=== PATIENT | female | born 1950 | race Caucasian/White ===

== ENCOUNTER 2023-02-17 06:54 | Outpatient (CLI) | payer OTHER, SELFPAY ==
[2023-02-17 07:02] VITALS: BP 157/72; PULSE 63; RESP 16; O2SAT 98
--- NOTE | 2023-02-17 07:34 | P.ORPRC_ITS ---
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 COMPLICATIONS: None. SPECIMENS: None. DRAINS: None. PREOPERATIVE ANTIBIOTICS: None INDICATIONS: The patient is a 72-year-old with a history of right hip pain secondary to the above diagnoses. Despite appropriate non operative management, they continue to have symptoms. Operative intervention was recommended. The risks, benefits and expected outcomes were discussed in detail. These included but were not limited to: Infection, bleeding, injury to blood vessel or nerve, venous thromboembolism. All questions were answered to their satisfaction. PROCEDURE: The patient was placed in the lateral decubitus position. The right hip was imaged in the long and short axes with the ultrasound transducer. Normal acoustic landmarks were identified. We then sterilely prepped and draped the skin, and used a sterile probe cover with sterile gel. Local anesthesia was established with 10 mL of a solution containing 2 % lidocaine without epinephrine, 0.5% Marcaine without epinephrine and sodium bicarbonate. An 11 blade was used to incise the skin. The Tenex TX 2 micro tip was used to treat the abductor tendon for a total of 4 minutes and 47 seconds. The incision was Steri-Stripped closed. A dry dressing was applied. Sponge and needle counts were correct x2. The patient tolerated the procedure well. There were no apparent complications. They were discharged to home in satisfactory condition. PLAN: The patient may weightbear as tolerates. Tylenol can be used for pain/discomfort. They may ramp up activity as the hip will allow. They will follow up in the office in 6 weeks to assess their progress.
== END 2023-02-17 07:42 | disposition home or self-care (01) ==
LOC: US 06:55
PROVIDERS: PCP Family Medicine; Visit Provider Orthopaedic Surgery
DX: M70.61 Trochanteric bursitis, right hip (principal)
CPT/HCPCS: 27006; 76942; J0665

== ENCOUNTER 2023-07-03 17:01 | Outpatient (CLI) | payer OTHER, SELFPAY ==
--- OUTSIDE RECORDS SUMMARY | 2023-07-09 12:34 | XMS_ITS | Clinical Summary ---
Author Organization [facility] Address [address] [place] [address] Care Team Providers Care Glass Ribbon Machine Operator Name Role Phone Lilli Chacon M.D. Primary Care Provider [phone]- [phone] Source Comments Patient records contain information from all sites at [facility]. For routine questions regarding patient records, call [phone] during business hours, M-F 8:00 AM - 5:00 PM Central Time. Record requests for emergency care only can be directed to [phone] at any time.[facility] Allergies Active Allergy Reactions Criticality Noted Date Comments Chlorine Rash 06/04/2020 Medications Medication Sig Dispensed Refills Start Date End Date Status EPINEPHrine (EpiPen) 0.3 mg/0.3 mL injection syringeIndicati ons:Allergy Personal History Inject 0.3 mL (0.3 mg total) intramuscularly as needed for anaphylaxis. Inject into the thigh. 1 each 1 2 Suspended Additional Information triamcinolone (KENALOG) 0.1 % cream Apply to affected area 1-2 times daily as needed. Avoid face and groin. 240 g 3 3 Suspended Additional Information naltrexone (DEPADE) 50 mg tablet Take 0.5 tablets (25 mg total) by mouth daily. 45 tablet 2 3 06/16/19 24 Discontinued pravastatin (PRAVACHOL) 40 mg tablet TAKE ONE TABLET BY MOUTH EVERY DAY 90 tablet 3 3 06/16/19 24 Discontinued levothyroxine (SYNTHROID, LEVOTHROID) 100 mcg tabletIndicatio ns:Hypothyroidi sm Take 1 tablet (100 mcg total) by mouth daily. 90 tablet 3 3 Suspended Additional Information ibuprofen (MOTRIN) 800 mg tabletIndicatio ns:Pain Chest Take 1 tablet (800 mg total) by mouth 3 (three) times a day as needed for pain (pain. take with food.). 90 tablet 3 Suspended Additional Information buPROPion (WELLBUTRIN SR) 100 mg 12 hr tablet Take 1 tablet by mouth 2 (two) times a day. 4 Suspended naltrexone (DEPADE) 50 mg tablet Take 0.5 tablets (25 mg total) by mouth 2 (two) times a day. 4 Suspended pravastatin (PRAVACHOL) 80 mg tabletIndicatio ns:Hypercholest erolemia Take 1 tablet (80 mg total) by mouth daily. 90 tablet 3 4 Suspended Additional Information Patient taking differently:80 mg oralDaily at bedtime, Reported on 07/04/2023 Active Problems Problem Noted Date Diagnosed Date Fracture Tibial Plateau Closed Initial Left 06/08 Obesity Body Mass Index 30-39.9 Adult 06/09/2021 [...] Encounters Date Type Department Care Team Description 07/04/2023 11:53 AM CDT Anesthesia Event [facility] [address] [place] [phone] Jamir Dye M.D. Corbitt, Rachel E, M.D. 07/04/2023 10:37 AM CDT - 07/04/2023 12:57 PM CDT Surgery [facility] [address] [place] [phone] Jaxson Rodriguez M.D. APPLICATION EXTERNAL FIXATION LOWER EXTREMITY, KNEE SPANNING 07/03/2023 10:12 PM CDT - Present Hospital Encounter [facility], [facility], [facility], Eighth Floor [address] [place] [phone] Otis Mak M.D. Wood, Luke E, D.O. Hidden, Krystin A, M.D. Wyles, Cody C, M.D. Fracture Tibial Plateau Closed Initial Left (Primary Dx); Decline Functional Status [R53.81]; Difficulty Walking Orthopedic Cause [R26.2] 07/03/2023 Clinical Communication Department of Orthopedic Surgery in [place], [place] [address] [place] [phone] Joaquin Kim M.D. 07/03/2023 Intake [facility] 06/17/2023 8:15 AM CDT Comprehensive Visit Department of Ophthalmology in [place], [place] [address] [phone] Tyshawn Puga M.D. Cataract Senile Nuclear Sclerosis Bilateral (Primary Dx); Dry Eye Syndrome Bilateral 06/16/2023 8:30 AM CDT Office Visit Department of Family Medicine, [facility], in [place], [place] [address] [phone] Lilli Chacon M.D. Pain Chest Wall (Primary Dx); Obesity Body Mass Index 30-39.9 Adult; Hypercholesterolem ia; Hypothyroidism; Hyperlipidemia Mixed; Iron Deficiency Anemia Screening Exam; Screening Osteoporosis 05/03/2023 1:30 PM CDT Procedure visit Division of Pain Medicine in [place], [place] [address] [place] [phone] Mayela Velazco M.D. Pain Chest Wall 05/03/2023 12:45 PM CDT Comprehensive Visit Division of Pain Medicine in [place], [place] [address] [place] [phone] Eva Srivastava, BALBIR, C.N.P., M.S.N. Pain Chest Wall (Primary Dx) from Last 3 Months Immunizations Name Administration [...] Grace Hypertension Maternal Grandmother Grace Cataracts Mother Hananh Heart disease Mother Hannah Hyperlipidemia Mother Hannah [...] drink = 0.6 oz pur e alcohol) [facility] Utilities Answer Date Recorded In the past 12 months has e [employer] / [employer], gas, oil, or water [employer] threatened to shut off services in your home? No 07/04/2023 Humiliation, Afraid, Rape, and Kick questionnair e Answer Date Recorded Within the last year, have y ou been afraid of your partner or ex-partner? No 07/04/2023 Within the last year, have y ou been humiliated or emotionally abused in other ways by your partner or ex-partner? No Within the last year, have y ou been kicked, hit, slapped, or otherwise physically hurt by your partner or ex-partner? No 07/04/2023 Within the last year, have y ou been raped or forced to have any kind of sexual activity by your partner or ex-partner? No 07/04/2023 Social Connection and Isolation Panel [NHANES] A nswer Date Recorded In a typical week, how many times do you talk on the phone with family, friends, or neighbors? Once a week 09/14/19 How often do you get togethe r with friends or relatives? Once a week 09/13/2021 How often do you attend memorial [facility] or spiritism services? 1 to 4 times per year [...] Answer Date Recorded PHQ-2 Score 4 06/16/2023 [facility]ational Stress Questionnaire Answer Date [...] the money to buy more. Never true 07/04/19 Within the past 12 months, t he food you bought just didn't last and you didn't have money to get more. Never true 07/04/2023 PRAPARE - Transportation Answer Date Re corded In the past 12 months, has l ack of transportation kept you from medical appointments or from getting medications? No 06/08 In the past 12 months, has l ack of transportation kept you from meetings, work, or from getting things needed for daily living? No 07/04/2023 Depression Answer Date Recor ded PHQ-9 Total [...] your living situation today? I have a [facility] place to live 07/04/2023 Education Answer Date Recorded What is the highest level of school you have completed or the highest degree you have received? Doctorate 09/05/2018 Sex and Gender Information Value Date Recorded Sex Assigned at Female 12/19/2016 7:29 PM [facility] Gender Identity Female 12/19/2016 7:29 PM [employer]E SE[facility]ER Sexual Orientation Lesbian or Turc[employer] 03/12/2020 12 :23 PM [employer] SE[facility] Last Filed Vital Signs Vital Sign Reading Time Taken Comments Blood Pressure 132/60 07/08/2023 9:05 PM CDT Pulse 89 07/09/2023 9:39 AM CDT Temperature 36.9 ??C (98.4 ??F) 07/09/2023 9:39 AM CD T Respiratory Rate 19 07/09/2023 9:39 AM CDT Oxygen Saturation 95% 07/09/2023 9:39 AM CDT Inhaled Oxygen Concentration - - Weight 78.6 kg (173 lb 4.5 oz) 07/04/2023 10:00 AM CDT Height 163 cm (5' 4.17) 07/04/2023 10:00 AM CDT Body Mass Index 29.58 07/04/2023 10:00 AM CDT Plan of Treatment Upcoming Encounters Date Type Department Care Team (Latest Contact Info) Description 07/12/2023 7:50 AM CDT Hospital Encounter Post Anesthesia Care Unit in [place] [id number] [place] [phone] Corrian Zuniga M.D. [address] [place] [phone] 07/12/2023 7:50 AM CDT - 07/12/2023 11:42 AM CDT Surgery [facility] [address] [place] [phone] Corrina Zuniga M.D. [address] [place] [phone] OPEN REDUCTION INTERNAL FIXATION TIBIAL PLATEAU - LEFT, proceed as indicated 08/25/2023 10:00 AM CDT Appointment Department of Radiology in [place], [place] [address] [place] [address] Lilli Chacon M.D. [address] [place] [phone] 12/19/2023 9:10 AM CONE SEWER Appointment Department of Laboratory Medicine in [place], [place] [address] [facility] [place] [phone] Lilli Chacon M.D. [address] [place] [phone] Scheduled Procedures Name Priority Associated Diagnoses Date/Ti me OPEN REDUCTION INTERNAL FIXA TION TIBIAL PLATEAU 07/12/2023 7:50 AM C DT Health Maintenance Due Date Last Done Comments CT Colonography 1950 Cologuard 1950 Depression Monitoring (PHQ-9) 10/17/2023 06/16/2023 Thyroid Stimulating Hormone (TSH) test for thyroid function 02/03/2024 02/02/2023, 02/02/2023, 01/21/2023, Additional history exists Mammogram 02/10/2024 02/09/2023, 04/2023, 03/09/2022, Additional history exists Visit: Annual, age 65+ (or Medicare and <65) 06/15/2024 06/16/2023 Fasting Glucose for Diabetes Screening 07/07/2026 07/08/2023, 07/05/2023, 07/03/2023, Additional history exists DTaP,Tdap,and Td Vaccines (3 [...] exists Fall Risk Screen (Annual) Completed 06/16/2023 Medical Devices Implanted Type Area Safety And Health Consultant Device Identifier Shelf Expiration Date Model / Serial / Lot Cplng Ext Fx Crbnfb 5x8 - [id number] Implanted:Qty: 7 on 07/04/2023 by Jaxson Rodriguez M.D. at [facility] [employer] e.g. pins/screws/r ods Lewis 4922-1-010 / / Hilario Ext Fx Crbnfb 10x872 - [id number] Implanted:Qty: 2 on 07/04/2023 by Jaxson Rodriguez M.D. at [facility] [employer] e.g. pins/screws/r ods Hang 4922-8-500 / / Hilario Ext Fx Crbnfb [id number] - [id number] Implanted:Qty: 1 on 07/04/2023 by Jaxson Rodriguez M.D. at [facility] [employer] e.g. pins/screws/r ods Hang 4922-8-400 / / Pin Ext Fx Ss St Apx [id number] - [id number] Implanted:Qty: 1 on 07/04/2023 by Jaxson Rodriguez M.D. at [facility] [employer] e.g. pins/screws/r ods Lewis 5020-8-250 / / Pin Ext Fx Ss St Apx 5x180 - [id number] Implanted:Qty: 3 on 07/04/2023 by Jaxson Rodriguez M.D. at [facility] [employer] e.g. pins/screws/r ods Hang 5020-7-180 / / Procedures The patient is currently admitted. The information in this section might not be complete until the patient is discharged. Procedure Name Priority Date/Time Associated Diagnosis Comments BASIC METABOLIC PANEL, S/P Timed 07/08/2023 6:09 AM CDT CBC WITHOUT DIFFERENTIAL, B Timed 07/08/2023 6:09 AM CDT BASIC METABOLIC PANEL, S/P Routine 07/05/2023 6:40 AM CDT CBC WITH DIFFERENTIAL, B Routine 07/05/2023 6:[address] KNEE LEFT WITHOUT IV CONTRAST RAD - Routine (most inpatients and all outpatients) 07/04/2023 5:19 PM CDT ADULT OXYGEN THERAPY Routine 07/04/2023 2:14 PM CDT FL FLUORO LESS THAN 1 HOUR RAD - Routine (most inpatients and all outpatients) 07/04/2023 2:11 PM CDT DX TIBIA FIBULA LEFT 2 VIEWS RAD - Routine (most inpatients and all outpatients) 07/04/2023 2:11 PM CDT LDA ANE ENDOTRACHEAL AIRWAY Routine 07/04/2023 12:07 PM CDT APPLICATION EXTERNAL FIXATION LOWER EXTREMITY 07/04/2023 11:33 AM CDT Fracture Tibial Plateau Closed Initial Left Special Needs SupineDiving boardWedge/rampPFS boot with extension postop DX CHEST 1 VIEW RAD - Semiurgent (Fast; most ED patients; some inpatients) 07/03/2023 11:29 PM CDT DX FINGERS LEFT 2+ VIEWS RAD - Semiurgent (Fast; most ED patients; some inpatients) 07/03/2023 11:29 PM CDT TYPE AND SCREEN STAT 07/03/2023 10:53 PM CDT BASIC METABOLIC PANEL, S/P STAT 07/03/2023 10:53 PM CDT PROTHROMBIN TIME (PT), P STAT 07/03/2023 10:53 PM CDT CBC WITH DIFFERENTIAL, B STAT 07/03/2023 10:53 PM CDT ECG STAT 07/03/2023 10:[address] NEURO Routine 07/03/2023 6:40 PM CDT OUTSIDE DX SKELETAL Routine 07/03/2023 5 :55 PM CDT OH US GUIDE PLC NDL Routine 05/03/2023 1 :30 PM CDT Pain Chest Wall OH INJ TRIGGER PNT<=2 MUS Routine 05/03/2023 1:30 PM CDT Pain Chest Wall BI BREAST SCREENING BILATERAL WITH TOMOSYNTHESIS RAD - Routine (most inpatients and all outpatients) 02/09/2023 8:55 AM [facility] LIPID PANEL, S Routine 02/02/2023 2:28 PM [employer]ER Gain Weight THYROID-STIMULATING HORMONE-SENSITIVE (S-TSH) Routine 02/02/2023 2:28 PM [employer]E SE[employer]ER Hypothyroidism HCV AB SCRN W/REFLEX TO HCV PCR, S Routine 03/17/2022 10:17 AM [facility]E SE[facility]ER Screening Test Laboratory COLONOSCOPY Routine 11/26/2019 3:23 PM CDT Screening Cancer Colon from Last 3 Months or Most Recently Relevant to Health Maintenance Results * (ABNORMAL) CBC without Differential (07/08/2023 6:09 AM CDT) Hemoglobin 9.1(L) 11.6 - 15.0 g/dL 07/08/2023 7:10 AM CDT DTL Hematocrit 27.7(L) 35.5 - 44.9 % 07/08/2023 7:10 AM CDT DTL Erythrocytes 2.89(L) 3.92 - 5.13 x10(12)/L 07/08/2023 7:10 AM CDT DTL MCV 95.8 78.2 - 97.9 fL 07/08/2023 7:10 AM CDT DTL RBC Distrib Width 13.2 12.2 - 16.1 % 07/08/2023 7:10 AM CDT DTL Platelet Count 191 157 - 371 x10(9)/L 07/08/2023 7:10 AM CDT DTL Leukocytes 5.1 3.4 - 9.6 x10(9)/L 07/08/2023 7:10 AM CDT DTL Blood (Blood, Venous) 07/08/2023 6:09 AM CDT 07/08/2023 6:59 AM CDT Gabriel Hooks M.D. LAB BLOOD ADD-ON [facility] [address] [place] [address], [facility] [address] [place] [address] * (ABNORMAL) Basic Metabolic Panel (07/08/2023 6:09 AM CDT) Only the most recent of3 resultswithin the time period is included. Potassium, S 3.7 3.6 - 5.2 mmol/L 07/08/2023 7:44 AM CDT DTL Sodium, S 139 135 - 145 mmol/L 07/08/2023 7:44 AM CDT DTL Chloride, S 104 98 - 107 mmol/L 07/08/2023 7:44 AM CDT DTL Bicarbonate, S 28 22 - 29 mmol/L 07/08/2023 7:44 AM CDT DTL Anion Gap 7 7 - 15 07/08/2023 7:44 AM CDT DTL BUN (Blood Urea Nitrogen), S 16 6 - 21 mg/dL 07/08/2023 7:44 AM CDT DTL Creatinine 0.86 0.59 - 1.04 mg/dL 07/08/2023 7:44 AM CDT DTL Estimated GFR (eGFR) 72 >=60 mL/min/BSA 07/08/2023 7:44 AM CDT DTL Comment: Estimated GFR calculated using the 2020 CKD_EPI creatinine equation. Calcium, Total, S 8.4(L) 8.8 - 10.2 mg/dL 07/08/2023 7:44 AM CDT DTL Glucose, S 104 70 - 140 mg/dL 07/08/2023 7:44 AM CDT DTL Blood (Blood, Venous) 07/08/2023 6:09 AM CDT 07/08/2023 7:23 AM CDT Gabriel Hooks M.D. LAB BLOOD ADD-ON [facility] [address] [place] [address], [facility] [address] [place] [address] * (ABNORMAL) CBC with Differential, Blood (07/05/2023 6:40 AM CDT) Only the most recent of2 resultswithin the time period is included. Hemoglobin 9.9(L) 11.6 - 15.0 g/dL 07/05/2023 7:34 AM CDT DTL Hematocrit 30.7(L) 35.5 - 44.9 % 07/05/2023 7:34 AM CDT DTL Erythrocytes 3.24(L) 3.92 - 5.13 x10(12)/L 07/05/2023 7:34 AM CDT DTL MCV 94.8 78.2 - 97.9 fL 07/05/2023 7:34 AM CDT DTL RBC Distrib Width 13.0 12.2 - 16.1 % 07/05/2023 7:34 AM CDT DTL Platelet Count 157 157 - 371 x10(9)/L 07/05/2023 7:34 AM CDT DTL Leukocytes 7.0 3.4 - 9.6 x10(9)/L 07/05/2023 7:34 AM CDT DTL Neutrophils 4.89 1.56 - 6.45 x10(9)/L 07/05/2023 7:34 AM CDT DHPM Lymphocytes 1.16 0.95 - 3.07 x10(9)/L 07/05/2023 7:34 AM CDT DTL Monocytes 0.86(H) 0.26 - 0.81 x10(9)/L 07/05/2023 7:34 AM CDT DTL Eosinophils 0.03 0.03 - 0.48 x10(9)/L 07/05/2023 7:34 AM CDT DTL Basophils <0.03 0.01 - 0.08 x10(9)/L 07/05/2023 7:34 AM CDT DTL Blood (Blood, Venous) 07/05/2023 6:40 AM CDT 07/05/2023 7:15 AM CDT Cresencio Reno M.D. LAB BLOOD ADD-ON [facility] [address] [place] [address], [facility] DTL [facility] [address] [place] [address] [facility] [address] [place] [address] * CT Knee Left without IV Contrast (07/04/2023 5:19 PM CDT) Anatomical Region Laterality Modality Lower Extremity, Knee, Muscu loskeletal RST LOS, Musculoskeletal ARZ LOS, Muskuloskeletal FLA LOS Left Computed Tomography, Compute d Tomography Impressions 07/05/2023 10:[address] of the left knee. As demonstrated radiographically, there is a comminuted and moderately displaced intra-articular fracture of the left tibial plateaus which extends to the proximal tibial shaft. The fracture involves both the medial and lateral tibial plateaus and the tibial eminence. Moderate depression of the lateral tibial plateau articular surface, with a large resultant gap at the articular surface. Approximately 3 mm step off at the medial tibial plateau. Additional comminuted and mildly displaced intra-articular fracture of the fibular head and neck. Mild step-off and gaps at the proximal tibiofibular joint. Mild impaction of the fibular neck. Large knee joint lipohemarthrosis. Surrounding bone marrow and soft tissue edema. Partially imaged external fixator. Phleboliths. Narrative 07/05/2023 10:32 AM CDT EXAM: ??CT KNEE LEFT WITHOUT IV CONTRAST No 3D post-processing performed. COMPARISON: ??Same-day tibia/fibula radiographs. Procedure Note Haylie White M.D. - 07/05/2023 EXAM: CT KNEE LEFT WITHOUT IV CONTRAST No 3D post-processing performed. COMPARISON: Same-day tibia/fibula radiographs. IMPRESSION: Noncontrast CT of the left knee. As demonstrated radiographically, there is a comminuted and moderatelydisplaced intra-articular fracture of the left tibial plateaus whichextends to the proximal tibial shaft. The fracture involves both themedial and lateral tibial plateaus and the tibial eminence. Moderate depression of the lateral tibial plateauarticular surface, with a large resultant gap at the articular surface.Approximately 3 mm step off at the medial tibial plateau. Additional comminuted and mildly displaced intra-articular fracture of thefibular head and neck. Mild step-off and gaps at the proximal tibiofibularjoint. Mild impaction of the fibular neck. Large knee joint lipohemarthrosis. Surrounding bone marrow and soft tissueedema. Partially imaged external fixator. Phleboliths. Fareed Villagran M.D. IMG CT PROCEDURES * FL Fluoro Less Than 1 Hour (07/04/2023 2:11 PM CDT) Narrative 152 HOS LOS RST - 07/04/2023 2:13 PM CDT This exam does not require a radiologist review or interpretation. Please refer to the patient's medical record on this date for clinical details. Joaquin Kim M.D. IMG FLUOROSCOPY PRO CEDURES 152 HOS LOS RST * DX Tibia Fibula Left 2 Views (07/04/2023 2:11 PM CDT) Anatomical Region Laterality Modality Lower Extremity, TibFib, Mus culoskeletal RST LOS, Musculoskeletal ARZ LOS, Muskuloskeletal FLA LOS Left Digit al Radiography Impressions 07/04/2023 2:22 PM CDT Interval placement of an external fixator across a comminuted, depressed, and displaced left lateral tibial plateau fracture which extends to the proximal tibial shaft with improved alignment. Mildly displaced fibular neck fracture. Large knee lipohemarthrosis. Soft tissue swelling and edema. Phleboliths. Narrative 07/04/2023 2:22 PM CDT EXAM: ??DX TIBIA FIBULA LEFT 2 VIEWS Procedure Note Vince Sweeney M.D. - 07/04/2023 EXAM: DX TIBIA FIBULA LEFT 2 VIEWS IMPRESSION: Interval placement of an external fixator across a comminuted, depressed,and displaced left lateral tibial plateau fracture which extends to theproximal tibial shaft with improved alignment. Mildly displaced fibularneck fracture. Large knee lipohemarthrosis. Soft tissue swelling and edema. Phleboliths. Joaquin Kim M.D. IMG DIAGNOSTIC IMAG ING PROCEDURES * LDA ANE ENDOTRACHEAL AIRWAY (07/04/2023 12:07 PM CDT) Narrative Manasa Corona APRN, CRNA, MNA - 07/04/2023 12:07 PM CDT Manasa Corona APRN, CRNA, MNA ? 07/04/2023 12:23 PM Airway Date/Time: 07/04/2023 12:07 PM Performed by: Manasa Corona APRN, CRNA, MNA Authorized by: Jamir Dye M.D. ?? Patient location during procedure: OR / Procedure Area PROCEDURE DETAILS: Mask difficulty assessment: easy mask Final airway type: video laryngoscope Laryngeal Manipulation: no ?? Final best view of glottic structures - Cormack/Lehane Score: grade 1 ETT location: oral VL device: glide scope Colon scope blade size: 3 Tube size: 7 ETT distance at teeth/gum: 21 Oral tube type: standard ETT Cuffed: yes Leak Test Performed: no ?? Number of attempt to successful placement: 1 Airway confirmation: bilateral breath sounds, positive ETCO2 and bilateral chest rise Other previous techniques attempted: none PRE PROCEDURE DETAILS: Pre evaluation for airway management: procedure Urgency: elective Preop assessment of probable difficulty: no difficulty anticipated Preoxygenation: bag valve mask SEDATION / ANESTHESIA Anesthesia method: anesthesia POST PROCEDURE DETAILS: ? Procedure outcome: successful ?? Notable Events: no complications Jamir Dye M.D. ANESTHESIA ORDER SHADE * DX Fingers Left 2+ Views (07/03/2023 11:29 PM CDT) Anatomical Region Laterality Modality Upper Extremity, Fingers, Mu sculoskeletal RST LOS, Musculoskeletal ARZ LOS, Muskuloskeletal FLA LOS Left Digit al Radiography Impressions 07/04/2023 6:50 AM CDT Tiny osseous fragment about the medial aspect of the proximal middle fifth phalanx appears to have been present dating back to 2019. No acute fracture or traumatic malalignment of the left fifth finger. No radiopaque foreign body. Narrative 07/04/2023 6:50 AM CDT EXAM: ??DX FINGERS LEFT 2+ VIEWS Procedure Note Rich Montelongo M.D. - 07/04/2023 EXAM: DX FINGERS LEFT 2+ VIEWS IMPRESSION: Tiny osseous fragment about the medial aspect of the proximal middle fifthphalanx appears to have been present dating back to 2019. No acutefracture or traumatic malalignment of the left fifth finger. No radiopaqueforeign body. Otis Mak M.D. IMG DIAGNOSTIC IMAGI NG PROCEDURES * DX Chest 1 View (07/03/2023 11:29 PM CDT) Anatomical Region Laterality Modality Chest, Thoracic RST LOS, Tho racic ARZ LOS, Thoracic FLA LOS N/A Digital Radiography Impressions 07/04/2023 6:51 AM CDT Calcified granuloma right upper lobe. Chest otherwise negative. Narrative 07/04/2023 6:51 AM CDT EXAM: ??DX CHEST 1 VIEW Procedure Note Rich Montelongo M.D. - 07/04/2023 EXAM: DX CHEST 1 VIEW IMPRESSION: Calcified granuloma right upper lobe. Chest otherwise negative. Otis Mak M.D. IMG DIAGNOSTIC IMAGI NG PROCEDURES * Prothrombin Time (PT) (07/03/2023 10:53 PM CDT) [facility] Prothrombin Time, P 11.7 9.4 - 12.5 sec 07/03/2023 11:04 PM CDT STMA INR 1.1 0.9 - 1.1 07/03/2023 11:04 PM CDT STMA Comment: ----ADDITIONAL INFORMATION---- Standard intensity warfarin therapeutic range: 2.0 to 3.0 ?? High intensity warfarin therapeutic range: 2.5 to 3.5 Blood (Blood, Venous) 07/03/2023 10:53 PM CDT 07/03/2023 10:58 PM CDT Narrative Authorizing Provider Result Vijaya Mak M.D. LAB BLOOD ADD-ON Performing Organization Address City/[facility]/ZIP Co de Phone Number [facility] [address] [place] [address], [facility] STMA [facility] [address] [place] [address] * Type and Screen (with Reflex Antibody ID) (07/03/2023 10:53 PM CDT) Pathologist [facility] ABORh O Pos Not applicable 07/03/2023 11:19 PM CDT STRM Antibody Screen Negative Negative 07/03/2023 11:34 PM CDT STRM Type & Screen Expiration 07/06/2023 23:59 07/03/2023 11:19 PM CDT STRM Testing Location [place] DEFAULT 07/03/2023 11:00 PM CDT STRM Blood (Blood, Venous) 07/03/2023 10:53 PM CDT 07/03/2023 11:00 PM CDT Narrative Authorizing Provider Result Vijaya Mak M.D. LAB BLOOD BANK TEST ORDERABLES Performing Organization Address City/[facility]/ZIP Co de Phone Number [facility] [address] [place] [address], [facility] STRM [facility] [address] [place] [address] * ECG 12 Lead (07/03/2023 10:32 PM CDT) Ventricular Rate ECG/Min 77 BPM MUSE [place] Interval 146 ms MUSE QRSD Interval 76 ms MUSE QT Interval 400 ms MUSE QTC Interval 452 ms MUSE P [place] 50 degrees MUSE R [place] 16 degrees MUSE T Wave [place] 44 degrees MUSE 07/03/2023 10:3 2 PM CDT 07/03/2023 10:36 PM CDT Impressions MUSE - 07/03/2023 10:36 PM CDT Normal sinus rhythm Minimal voltage criteria for LVH, may be normal variant When compared with ECG of 13-Sep-2016 12:00, No significant change was found Reviewed by SABA Naranjo Narrative Procedure Note Remigio Us M.B.BPrakashS. - 07/03/2023 IMPRESSION: Normal sinus rhythm Minimal voltage criteria for LVH, may be normal variant When compared with ECG of 13-Sep-2016 12:00, No significant change was found Reviewed by SABA Naranjo Otis Mak M.D. ECG ORDERABLES MUSE NA * CT HEAD/BRAIN WO CON-Outside CT Neuro (07/03/2023 6:40 PM CDT) 07/03/2023 6:36 PM CDT Narrative IIMS - 07/03/2023 7:53 PM CDT This order has been created and auto-finalized to support the import of outside images. If available, original interpretation can be found on the Media Tab in Chart Review, in Document Viewer, or as an image in QREADS. If a re-interpretation or overread is required please follow defined workflow. ?? Provider Not In System IMG CT PROCEDURES IIMS NA * XR TIBIA FIBULA LT 2V-Outside Skeletal Xray (07/03/2023 5:55 PM CDT) 07/03/2023 5:53 PM CDT Narrative IIMS - 07/03/2023 7:53 PM CDT This order has been created and auto-finalized to support the import of outside images. If available, original interpretation can be found on the Media Tab in Chart Review, in Document Viewer, or as an image in QREADS. If a re-interpretation or overread is required please follow defined workflow. ?? Provider Not In System IMG DIAGNOSTIC IM AGING PROCEDURES IIMS NA * OH INJ TRIGGER PNT<=2 MUS, [place] US GUIDE PLC NDL (05/03/2023 1:30 PM CDT) Narrative MMODAL - 05/03/2023 1:30 PM CDT Mayela Velazco M.D. ? 05/03/2023 ??1:52 PM PM Trigger point injection (right cervical and left cervical) Performed by: Mayela Velazco M.D. Authorized by: Lilli Chacon M.D. ?? Care team members present 1. Louisa Garcia, L.PPrakashN. 2. Junaid Stack D.O. PROCEDURE SUMMARY ?? [...] fellow participated in the procedure, and the corporate learning consultant was present for the entire procedure. OPERATIVE NOTE INFORMATION Specimens: 0 Drains: 0 Estimated blood loss: 0 Implants: 0 Lilli Chacon M.D. PROCEDURE/MINOR CASTILLO RGICAL ORDERABLES MMODAL NA * (ABNORMAL) Lipid Panel (02/02/2023 2:28 PM CONE SEWER) Triglycerides 69 mg/dL 02/02/2023 4:41 PM CONE SEWER OWAT Comment: ----REFERENCE VALUE---- Normal: <150 mg/dL Borderline High: 150-199 mg/dL High: 200-499 mg/dL Very High: > or =500 mg/dL Cholesterol, Total 230(H) mg/dL 2022 4:41 PM CONE SEWER OWAT Comment: ----REFERENCE VALUE---- Desirable: < 200 mg/dL Borderline High: 200 - 239 mg/dL High: > or = 240 mg/dL Cholesterol, LDL, Calculated 118 mg/dL 02/02/2023 4:41 PM CONE SEWER OWAT Comment: ----REFERENCE VALUE---- Desirable: <100 mg/dL Above Desirable: 100-129 mg/dL Borderline High: 130-159 mg/dL High: 160-189 mg/dL Very High: >=190 mg/dL ----ADDITIONAL INFORMATION---- LDL cholesterol calculated using the Siu/NIH equation. Cholesterol, HDL 100 >=50 mg/dL 02/03/20 4:41 PM CONE SEWER OWAT Cholesterol, Non-HDL, Calculated 130 mg/dL 02/02/2023 4:41 PM CONE SEWER OWAT Comment: ----REFERENCE VALUE---- Desirable: <130 mg/dL Above Desirable: 130-159 mg/dL Borderline High: 160-189 mg/dL High: 190-219 mg/dL Very High: > or =220 mg/dL Fasting (8 HR or more) yes 02/02/2023 3:40 PM CONE SEWER OWAT Blood (Blood, Venous) 02/02/2023 2:28 PM CONE SEWER 02/02/2023 3:40 PM CONE SEWER Katie Corona M.D. LAB BLOOD ADD-ON [facility] [address] [place] [address], [facility] OWAT [facility] [place] [address] [place] [address] * S-TSH (Thyroid-Stimulating Hormone - Sensitive) (02/02/2023 2:28 PM CONE SEWER) TSH, Sensitive 0.3 0.3 - 4.2 mIU/L 02/02/2023 4:37 PM CONE SEWER OWAT Blood (Blood, Venous) 02/02/2023 2:28 PM CONE SEWER 02/02/2023 3:40 PM CONE SEWER Lilli Chacon M.D. LAB BLOOD ADD-ON [facility] [address] [place] [address], [place] OWAT [facility] [place] [address] [place] [address] * HCV Ab Scrn w/Reflex to HCV PCR, Serum (03/17/2022 10:17 AM CONE SEWER) HCV Ab Screen, S Negative Negative 03/18/2022 8:10 AM CONE SEWER [facility] Comment:Aicigc-zc-mrgsnx rat io is <1.00. Blood (Blood, Venous) 03/17/2022 10:17 AM CONE SEWER 03/18/2022 7:06 AM CONE SEWER Lilli Chacon M.D. LAB MICROBIOLOGY - BLOOD ORDERABLES [facility] [address] [place] [address] [facility] [address] [place] [phone] from Last 3 Months or Most Recently Relevant to Health Maintenance Advance Directives For more information, please contact: [phone] * Full Code (Latest Code Status on File) Date Activated Date Inactivated Comments 07/03/2023 11:47 PM Question Answer Comments Full Code: Discussed Care Teams Glass Ribbon Machine Operator Relationship Specialty Start Date End Date Lilli Chacon M.D. [address] [place] [phone] PCP - General Family Medicine 05/11/21
--- OUTSIDE RECORDS SUMMARY | 2023-07-09 12:34 | XMS_ITS | Referral Summary ---
Author Organization [facility] Address [address] [place] [address] Care Team Providers Care Estimator And Drafter Name Role Phone Lilli Chacon M.D. Primary Care Provider [phone]- [phone] Source Comments Patient records contain information from all sites at [facility]. For routine questions regarding patient records, call [phone] during business hours, M-F 8:00 AM - 5:00 PM Central Time. Record requests for emergency care only can be directed to [phone] at any time.[facility] Encounters Date Type Department Care Team Description 07/04/2023 10:37 AM CDT - 07/04/2023 12:57 PM CDT Surgery [facility] OR [address] [place] [phone] Jaxson Rodriguez M.D. APPLICATION EXTERNAL FIXATION LOWER EXTREMITY, KNEE SPANNING 07/04/2023 11:53 AM CDT Anesthesia Event [facility] OR [address] [place] [phone] Jamir Dye M.D. Corbitt, Rachel E, M.D. 07/03/2023 Clinical Communication Department of Orthopedic Surgery in [place], [place] [address] [place] [phone] Joaquin Kim M.D. 07/03/2023 10:12 PM CDT - Present Hospital Encounter [facility], [facility], [facility], Eighth Floor [address] [place] [phone] Otis Mak M.D. Gibran Thompson D.O. Lisa Mota M.D. Wyles, Cody C, M.D. Fracture Tibial Plateau Closed Initial Left (Primary Dx); Decline Functional Status [R53.81]; Difficulty Walking Orthopedic Cause [R26.2] 07/03/2023 Intake [facility] 06/17/2023 8:15 AM CDT Comprehensive Visit Department of Ophthalmology in [address] [phone] Tyshawn Puga M.D. Cataract Senile Nuclear Sclerosis Bilateral (Primary Dx); Dry Eye Syndrome Bilateral 06/16/2023 8:30 AM CDT Office Visit Department of Family Medicine, [facility], in [address] [phone] Lilli Chacon M.D. Pain Chest Wall (Primary Dx); Obesity Body Mass Index 30-39.9 Adult; Hypercholesterolem ia; Hypothyroidism; Hyperlipidemia Mixed; Iron Deficiency Anemia Screening Exam; Screening Osteoporosis 05/03/2023 1:30 PM CDT Procedure visit Division of Pain Medicine in [address] [phone] Eva Velazco M.D. Pain Chest Wall 05/03/2023 12:45 PM CDT Comprehensive Visit Division of Pain Medicine in [place], [place] [address] [place] [phone] Eva Srivastava APRN, C.N.P., M.S.N. Pain Chest Wall (Primary Dx) from Last 3 Months Allergies Active Allergy [...] Years Used Date Smoking Tobacco: Former Cigarettes - 2002 Smokeless Tobacco: Never Tobacco Cessation:Counseling Given: Not Answered Alcohol Use Standard Drinks/Week Comments Yes 2 (1 standard drink = 0.6 oz pur e alcohol) [facility] Utilities Answer Date Recorded In the past 12 months has e [employer], gas, oil, or water company threatened to shut off services in your [...] often do you attend chur ch or mandaen services? 1 to 4 times per year 09/13/2021 Do you belong to any clubs o r organizations such as confucianism groups, unions, fraternal or athletic groups, or [...] Answer Date Recorded PHQ-2 Score 4 06/16/2023 [facility] [place] of Occupat ional Health - Occupational Stress [...] money to buy more. Never true 07/04/19 24 Within the past 12 months, t he [...] your living situation today? I have a [facility] place to live 07/04/2023 Education Answer Date Recorded What is the highest level of school you have completed or the highest degree you have received? Doctorate 09/05/2018 Sex and Gender Information Value Date Recorded Sex Assigned at Female 12/19/2016 7:29 PM EDGE GRINDER Gender Identity Female 12/19/2016 7:29 PM EDGE GRINDER Sexual Orientation Lesbian or Turcios 03/12/2020 12 :23 PM EDGE GRINDER Last Filed Vital Signs Vital Sign Reading [...] Hospital Encounter Post Anesthesia Care Unit in [place] [id number] [place] [phone] Corrina Zuniga M.D. [address] [place] [phone] 07/12/2023 7:50 AM CDT - 07/12/2023 11:42 AM CDT Surgery [facility] OR [address] [place] [phone] Corrina Zuniga M.D. [address] [place] [phone] OPEN REDUCTION INTERNAL FIXATION TIBIAL PLATEAU - LEFT, proceed as indicated 08/25/2023 10:00 AM CDT Appointment Department of Radiology in [place], [place] [address], [place] [phone] Lilli Chacon M.D. [address] [address] 12/19/2023 9:10 AM EDGE GRINDER Appointment Department of Laboratory Medicine in [place] [address] [place] [phone] Lilli Chacon M.D. [address] [place] [phone] Scheduled Procedures Name Priority Associated Diagnoses Date/Ti me OPEN REDUCTION INTERNAL FIXA TION TIBIAL PLATEAU 07/12/2023 7:50 AM C DT Medical Devices Implanted Type Area Well Drill Operator Device Identifier Shelf Expiration Date Model / Serial / Lot Cplng Ext Fx Crbnfb 5x8 - [id number] Implanted:Qty: 7 on 07/04/2023 by Jaxson Rodriguez M.D. at [facility] Hardware e.g. pins/screws/r ods [place] 4922-1-010 / / Hilario Ext Fx Crbnfb [id number] - [id number] Implanted:Qty: 2 on 07/04/2023 by Jaxson Rodriguez M.D. at [facility] Hardware e.g. pins/screws/r ods [place] 4922-8-500 / / Hilario Ext Fx Crbnfb [id number] - [id number] Implanted:Qty: 1 on 07/04/2023 by Jaxson Rodriguez M.D. at [facility] Hardware e.g. pins/screws/r ods [place] 4922-8-400 / / Pin Ext Fx Ss St Apx [id number] - [id number] Implanted:Qty: 1 on 07/04/2023 by Jaxson Rodriguez M.D. at [facility] Hardware e.g. pins/screws/r ods [place] 5020-8-250 / / Pin Ext Fx Ss St Apx 5x180 - [id number] Implanted:Qty: 3 on 07/04/2023 by Jaxson Rodriguez M.D. at [facility] Hardware e.g. pins/screws/r ods [place] [id number] / / Procedures The patient is [...] SKELETAL Routine 07/03/2023 5 :55 PM CDT NV US GUIDE PLC NDL Routine 05/03/2023 1 :30 PM CDT Pain Chest Wall NV INJ TRIGGER PNT<=2 MUS Routine 05/03/2023 1:30 PM CDT Pain Chest Wall BI BREAST SCREENING BILATERAL WITH TOMOSYNTHESIS RAD - Routine (most inpatients and all outpatients) 02/09/2023 8:55 AM EDGE GRINDER LIPID PANEL, S Routine 02/02/2023 2:28 PM EDGE GRINDER Gain Weight THYROID-STIMULATING HORMONE-SENSITIVE (S-TSH) Routine 02/02/2023 2:28 PM EDGE GRINDER Hypothyroidism HCV AB SCRN W/REFLEX TO HCV PCR, S Routine 03/17/2022 10:17 AM EDGE GRINDER Screening Test Laboratory COLONOSCOPY Routine 11/26/2019 3:23 [...] CDT Gabriel Hooks M.D. LAB BLOOD ADD-ON [facility] [address] [place] [address], [facility] DTL [facility] [address] [place] [address] * (ABNORMAL) Basic Metabolic Panel (07/08/2023 6:09 AM CDT) Only the most recent of3 resultswithin the time period is included. Pathologist [facility] Potassium, S 3.7 3.6 - 5.2 mmol/L [...] CDT Gabriel Hooks M.D. LAB BLOOD ADD-ON [facility] [address] [place] [address], [facility] DTL [facility] [address] [place] [address] * (ABNORMAL) CBC with Differential, Blood (07/05/2023 [...] CDT Cresencio Reno M.D. LAB BLOOD ADD-ON [facility] [address] [place] [address], [place] DTL [facility] [address] [place] [address] [facility] [address] [place] [address] * CT Knee Left without IV Contrast [...] date for clinical details. Joaquin Kim M.D. IM FLUOROSCOPY PRO CEDURES 152 HOS LOS RST [...] ETT location: oral VL device: glide scope [place] scope blade size: 3 Tube size: 7 [...] finger. No radiopaqueforeign body. Otis Mak M.D. [facility] DIAGNOSTIC IMAGI NG PROCEDURES * DX Chest [...] lobe. Chest otherwise negative. Otis Mak M.D. [facility] DIAGNOSTIC IMAGI NG PROCEDURES * Prothrombin Time (PT) (07/03/2023 10:53 PM CDT) Prothrombin Time, P 11.7 9.4 - 12.5 sec 07/03/2023 11:04 PM CDT STMA INR 1.1 0.9 - 1.1 07/03/2023 11:04 PM CDT [facility] Comment: ----ADDITIONAL INFORMATION---- Standard intensity warfarin therapeutic range: 2.0 to 3.0 ?? High intensity warfarin therapeutic range: 2.5 to 3.5 Blood (Blood, Venous) 07/03/2023 10:53 PM CDT 07/03/2023 10:58 PM CDT Otis Mak M.D. LAB BLOOD ADD-ON Performing Organization Address City/[facility] Co de Phone Number [facility] [address] [place] [address], [facility] [address] [place] [address] * Type and Screen (with Reflex Antibody ID) (07/03/2023 10:53 PM CDT) Pathologist [facility] ABORh O Pos Not applicable 07/03/2023 11:19 PM CDT STRM Antibody Screen Negative Negative 07/03/2023 11:34 PM CDT STRM Type & Screen Expiration 07/06/2023 23:59 07/03/2023 11:19 PM CDT STRM Testing Location [place] DEFAULT 07/03/2023 11:00 PM CDT STR Blood (Blood, Venous) 07/03/2023 10:53 PM CDT 07/03/2023 11:00 PM CDT Otis Mak M.D. LAB BLOOD BANK TEST ORDERABLES Performing Organization Address [facility] Co de Phone Number [facility] [address] [place] [address], [facility] STRM [facility] [address] [place] [address] * ECG 12 Lead (07/03/2023 10:32 PM CDT) Pathologist [facility] Ventricular Rate ECG/Min 77 BPM MUSE NV Interval 146 ms MUSE QRSD Interval 76 ms MUSE QT Interval 400 ms MUSE QTC Interval 452 ms MUSE P [place] 50 degrees MUSE R [place] 16 degrees MUSE T Wave [place] 44 degrees MUSE 07/03/2023 10:3 2 PM CDT 07/03/2023 10:36 PM CDT Impressions MUSE - 07/03/2023 10:36 PM CDT Normal sinus rhythm Minimal voltage criteria for LVH, may be normal variant When compared with ECG of 13-Sep-2016 12:00, No significant change was found Reviewed by SABA Naranjo Narrative Procedure Note Remigio Us M.B.B.S. - 07/03/2023 IMPRESSION: Normal sinus rhythm Minimal voltage criteria for LVH, may be normal variant When compared with ECG of 13-Sep-2016 12:00, No significant change was found Reviewed by SABA Naranjo Otis Mak M.D. ECG ORDERABLES Performing Organization Address [facility] Co de Phone Number MUSE NA * CT HEAD/BRAIN WO CON-Outside [...] Provider Not In System IMG CT PROCEDURES Performing Organization Address [facility] Co de Phone Number IIMS NA * XR TIBIA FIBULA LT [...] DIAGNOSTIC IM AGING PROCEDURES IIMS NA * NV INJ TRIGGER PNT<=2 MUS, [place] US GUIDE PLC NDL (05/03/2023 1:30 PM CDT) Narrative MMODAL - 05/03/2023 1:30 PM CDT Eva Velazco M.D. ? 05/03/2023 ??1:52 PM PM Trigger point injection (right cervical and left cervical) Performed by: Eva Velazco M.D. Authorized by: Lilli Chacon M.D. ?? Care team members present 1. Louisa Garcia L.P.N. 2. Junaid Stcak D.O. PROCEDURE SUMMARY ?? Indication: Chest Wall [...] fellow participated in the procedure, and the pmo consultant was present for the entire procedure. OPERATIVE NOTE INFORMATION Specimens: 0 Drains: 0 Estimated blood loss: 0 Implants: 0 Lilli Chacon M.D. PROCEDURE/MINOR CASTILLO RGICAL ORDERABLES MMODAL NA * (ABNORMAL) Lipid Panel (02/02/2023 2:28 PM EDGE GRINDER) Triglycerides 69 mg/dL 02/02/2023 4:41 PM EDGE GRINDER OWAT Comment: ----REFERENCE VALUE---- Normal: <150 mg/dL Borderline High: 150-199 mg/dL High: 200-499 mg/dL Very High: > or =500 mg/dL Cholesterol, Total 230(H) mg/dL 2022 4:41 PM EDGE GRINDER OWAT Comment: ----REFERENCE VALUE---- Desirable: < 200 mg/dL Borderline High: 200 - 239 mg/dL High: > or = 240 mg/dL Cholesterol, LDL, Calculated 118 mg/dL 02/02/2023 4:41 PM EDGE GRINDER OWAT Comment: ----REFERENCE VALUE---- Desirable: <100 mg/dL Above Desirable: 100-129 mg/dL Borderline High: 130-159 mg/dL High: 160-189 mg/dL Very High: >=190 mg/dL ----ADDITIONAL INFORMATION---- LDL cholesterol calculated using the Siu/NIH equation. Cholesterol, HDL 100 >=50 mg/dL 02/03/20 4:41 PM EDGE GRINDER OWAT Cholesterol, Non-HDL, Calculated 130 mg/dL 02/02/2023 4:41 PM EDGE GRINDER OWAT Comment: ----REFERENCE VALUE---- Desirable: <130 mg/dL Above Desirable: 130-159 mg/dL Borderline High: 160-189 mg/dL High: 190-219 mg/dL Very High: > or =220 mg/dL Fasting (8 HR or more) yes 02/02/2023 3:40 PM EDGE GRINDER OWAT Blood (Blood, Venous) 02/02/2023 2:28 PM EDGE GRINDER 02/02/2023 3:40 PM EDGE GRINDER Katie Corona M.D. LAB BLOOD ADD-ON Performing Organization Address City/[facility]/ZIP Co de Phone Number [facility] [address] [place] [address], [facility] in [place] [address] [place] [address] * S-TSH (Thyroid-Stimulating Hormone - Sensitive) (02/02/2023 2:28 PM EDGE GRINDER) TSH, Sensitive 0.3 0.3 - 4.2 mIU/L 02/02/2023 4:37 PM EDGE GRINDER OWAT Blood (Blood, Venous) 02/02/2023 2:28 PM EDGE GRINDER 02/02/2023 3:40 PM EDGE GRINDER Lilli Chacon M.D. LAB BLOOD ADD-ON Performing Organization Address City/[facility]/ZIP Co de Phone Number [facility] [address] [address], [facility] OWAT [facility] in [place] [address] [place] [address] * HCV Ab Scrn w/Reflex to HCV PCR, Serum (03/17/2022 10:17 AM EDGE GRINDER) HCV Ab Screen, S Negative Negative 03/18/2022 8:10 AM EDGE GRINDER [facility] Comment:Vvsthh-tv-mwttwj rat io is <1.00. Blood (Blood, Venous) 03/17/2022 10:17 AM EDGE GRINDER 03/18/2022 7:06 AM EDGE GRINDER Lilli Chacon M.D. LAB MICROBIOLOGY - BLOOD ORDERABLES [facility] [address] [place] [address] [facility] [address] [place] [phone] from Last 3 Months or Most Recently Relevant to Health Maintenance Advance Directives For more information, please contact: [phone] * Full Code (Latest Code Status on File) Date Activated Date Inactivated Comments 07/03/2023 11:47 PM Question Answer Comments Full Code: Discussed Care Teams Estimator And Drafter Relationship Specialty Start Date End Date Lilli Chacon M.D. [address] [place] [phone] PCP - General Family Medicine 05/11/21
--- OUTSIDE RECORDS SUMMARY | 2023-07-09 12:34 | XMS_ITS | Clinical Summary ---
Author Organization [facility] Address [place], [place] [address] Care Team Providers Care Telephone Ad Taker Name Role Phone Lilli Chacon MD Primary [...] 20 mg by mouth once daily. Active EQTOCUFQ-IOXCAPXQJFZ-M IET CB25 ORAL Take by mouth. Active CHROMIUM/HERBAL COMPLEX NO.238 (GREEN TEA, W/MET.ENHAN.BLEND, ORAL) Take by mouth. Active levothyroxine (SYNTHROID) 100 mcg tablet Take 100 mcg by mouth before breakfast. Active qw-fx-iueuyw #523-g-ezglmwgjet 100 mg tab Take 1 Tab by [...] ANSELMO BILAT SCREEN Routine 02/09/2023 8:55 AM KEYBOARD SPECIALIST Visit for screening mammogram from Last 3 Months or Most Recently Relevant to Health Maintenance Results * XR MAMMO ANSELMO BILAT SCREEN (02/09/2023 8:55 AM KEYBOARD SPECIALIST) Anatomical Region Laterality Modality BREASTS, Breast Left, Breast Right Bilateral Mammography Impressions 02/09/2023 10:21 AM KEYBOARD SPECIALIST ??There is no radiographic evidence for malignancy. ??Recommend annual mammograms. MAMMOGRAM ASSESSMENT: ??ACR 1 Negative PATIENTS: You will also receive a letter with your examination results in an easy to read format. ??If you have questions about your results, please contact your referring provider. Narrative 02/09/2023 10:21 AM KEYBOARD SPECIALIST For Patients: As a result of the Century Cures Act, medical imaging exams and procedure reports are released immediately into your electronic medical record. You may view this report before your referring provider. If you have questions, please contact your health care provider. XR MAMMO ANSELMO BILAT SCREEN [[id number]] CLINICAL HISTORY: ??This is an asymptomatic 72 [...] or Most Recently Relevant to Health Maintenance Insurance Payer Benefit Plan / Group Subscriber ID Effective Dates Phone Address Type MEDICARE PART A - HB USE ONLY MEDICARE PART A HB ONLY [id number] 2015-Present ATTN: CLAIMS [address] [place] [address] [facility] [id number] 2018-Present [address] [place] [address] Advance Directives * Full Code (Latest Code Status on File) Date Activated Date Inactivated Comments 10/04/2016 9:28 AM 10/04/2016 2:51 PM Care Teams Telephone Ad Taker Relationship Specialty Start Date End Date Lilli Chacon MD [address] [place] [address] PCP - General Family Practice 02/08/23
--- OUTSIDE RECORDS SUMMARY | 2023-07-09 12:34 | XMS_ITS ---
Author Organization [facility] Address [address] [place] [address] Care Team Providers Care Thumb Sewer Name Role Phone Unavailable Unavailable Unavailable Surgery Details Not on file Complications Check Surgery Details section. Procedure Estimated Blood Loss Check Surgery Details section. Procedure Findings Check Surgery Details section. Procedure Specimens Taken Check Surgery Details section.
--- OUTSIDE RECORDS SUMMARY | 2023-07-09 12:35 | XMS_ITS | Encounter Summary ---
Author Organization [facility] Address [address] [place] [id number] Care Team Providers Care Supervisor Braiding Name Role Phone Lilli Chacon M.D. Primary Care Provider [phone]- [phone] Encounter Details Date Type Department Care Team (Late st Contact Info) Description 07/03/2023 Clinical Communication Department of Orthopedic Surgery in [place], [place] [address] [place] [address] Joaquin Kim M.D. [address] [place] [address] Social History Tobacco Use Types Packs/Day Years Used Date Smoking Tobacco: Former Cigarettes 2002 Smokeless Tobacco: Never Alcohol Use Standard Drinks/Week Comments Yes 2 (1 standard drink = 0.6 oz pur e alcohol) [facility] Utilities Answer Date Recorded In the past 12 months has [facility] [employer] gas, oil, or water [employer] threatened to shut off services in your [...] How often do you attend chur or christianity services? 1 to 4 times per year 09/13/2021 Do you belong to any clubs o r organizations such as taoist groups, unions, fraternal or athletic groups, or [...] Answer Date Recorded PHQ-2 Score 4 06/16/2023 [facility] - Occupational [...] your living situation today? I have a [facility] place to live 07/04/2023 Education Answer Date Recorded What is the highest level of school you have completed or the highest degree you have received? Doctorate 09/05/2018 Sex and Gender Information Value Date Recorded Sex Assigned at Female 12/19/2016 7:29 PM DRAPERY COUNSELOR Gender Identity Female 12/19/2016 7:29 PM DRAPERY COUNSELOR Sexual Orientation Lesbian or Turcios 03/12/2020 12 :23 PM DRAPERY COUNSELOR documented as of this encounter Miscellaneous Notes * Telephone Encounter - Joaquin Kim M.D. - 07/03/2023 9:33 PM CDT ATC call I spoke with the provider caring for the patient in the [place] [facility]. The patient fell from a ladder about 3 ft high injuring her left lower extremity. X-rays of the left tibia andfibula demonstrate a complex Schatzker 6 tibial plateau fracture. Local orthopedic surgery recommended transfer here given the complexity of the fracture. Patient reportedly has no other injuries andis not anticoagulated. Per the local provider, she is neurovascularly intact and was placed into a well-padded long leg splint. She will be transferred to the [facility] Emergency Department for further evaluation with anticipation of operative treatment in the form of knee spanning external fixation tomorrow following obtaining standard preoperative lab evaluation and medical clearance. We will obtain a CT scan after surgery to better characterize the fracture Anuel Kim MD OTS-3 Chief Resident documented in this encounter Plan of Treatment Upcoming Encounters Date Type Department Care Team (Latest Contact Info) Description 07/12/2023 7:50 AM CDT Hospital Encounter Post Anesthesia Care Unit in [address] [address] Corrina Zuniga M.D. [address] [place] [phone] 07/12/2023 7:50 AM CDT - 07/12/2023 11:42 AM CDT Surgery [facility] MAIN OR [address] [place] [phone] Corrina Zuniga M.D. [address] [place] [phone] OPEN REDUCTION INTERNAL FIXATION TIBIAL PLATEAU - LEFT, proceed as indicated 08/25/2023 10:00 AM CDT Appointment Department of Radiology in [place], [place] [address], [place] [address] Lilli Chacon M.D. [address] [address] 12/19/2023 9:10 AM DRAPERY COUNSELOR Appointment Department of Laboratory Medicine in [place] [address] [place] [phone] Lilli Chacon M.D. [address] [address] Scheduled Procedures Name Priority Associated Diagnoses Date/Ti me OPEN REDUCTION INTERNAL FIXA TION TIBIAL PLATEAU 07/12/2023 7:50 AM C DT documented as of this encounter Visit Diagnoses Not on filedocumented in this encounter Additional Health Concerns Assessment Noted Time PHQ-9 Depression Total Score: 9 06/16/19 24 7:14 AM CDT documented as of this encounter Care Teams Supervisor Braiding Relationship Specialty Start Date End Date Lilli Chacon M.D. [address] [place] [address] PCP - General Family Medicine 05/11/21 documented as of this encounter
--- OUTSIDE RECORDS SUMMARY | 2023-07-09 12:35 | XMS_ITS | Encounter Summary ---
Author Organization [facility] Address [address] [place] [address] Care Team Providers Care Auto Service Instructor Name Role Phone Thanh Chacon M.D. Primary Care Provider +1- [phone] Reason for Referral * Outpatient (Routine) - Closed Specialty Diagnoses / Procedures Referred By Contac t Referred To Contact Diagnoses Pain Chest Wall Procedures PM Trigger point injection Thanh Chacon M.D. [address] [place] [address] [facility] Referral ID Status Reason Start Date Expiration Date Visits Re quested Visits Authorized [id number] Closed 04/08/2023 04/07/2024 1 1 TENANCE PLANNING CLERK Reason for Visit * Reason Onset Date Comments Communication 04/07/2023 Encounter Details Date Type Department Care Team (Late st Contact Info) Description 04/07/2023 Clinical Communication Department of Family Medicine, [facility] [place] [facility], in [place], [place] [address] [place] [address] Thanh Chacon M.D. [address] [place] [phone] Communication Social History Tobacco Use Types [...] How often do you attend chur or adventist services? 1 to 4 times per year 09/13/2021 Do you belong to any clubs o r organizations such as judaism groups, unions, fraternal or athletic groups, or [...] Answer Date Recorded PHQ-2 Score 2 01/21/2023 [facility] Answer Date [...] living situation today? I have a [facility] place to live 10/28/2022 Education Answer Date Recorded What is the highest level of school you have completed or the highest degree you have received? Doctorate 09/05/2018 Sex and Gender Information Value Date Recorded Sex Assigned at Female 12/19/2016 7:29 PM MAINTENANCE PLANNING CLERK Gender Identity Female 12/19/2016 7:29 PM MAINTENANCE PLANNING CLERK Sexual Orientation Lesbian or Turcios 03/12/2020 12 :23 PM MAINTENANCE PLANNING CLERK documented as of this encounter Miscellaneous Notes * Telephone Encounter - Alyson Perry - 04/08/2023 1:29 PM CST Images from the original note were not included. Shreya is aware and pleased. Thanks again. Alyson 04/08/23 TENANCE PLANNING CLERK * Addendum Note - Thanh Chacon M.D. - 04/08/2023 12:40 PM CSTAddended by: THANH CHACON on: 04/08/2023 12:40 PM Modules accepted: Orders TENANCE PLANNING CLERK * Addendum Note - Alyson Perry - 04/08/2023 12:00 PM CSTAddended by: ALYSON PERRY on: 04/08/2023 12:00 PM Modules accepted: Orders TENANCE PLANNING CLERK * Addendum Note - Thanh Chacon M.D. - 04/08/2023 11:45 AM CSTAddended by: THANH CHACON on: 04/08/2023 11:45 AM Modules accepted: Orders TENANCE PLANNING CLERK * Telephone Encounter - Alyson Perry - 04/08/2023 11:[address] Chacon Calling back dept- [id number]. Order pended to this encounter. Thank you, Alyson Referrals 04/08/23 TENANCE PLANNING CLERK * Addendum Note - Thanh Chacon M.D. - 04/08/2023 10:40 AM CSTAddended by: THANH CHACON on: 04/08/2023 10:40 AM Modules accepted: Orders TENANCE PLANNING CLERK * Telephone Encounter - Alyson Perry - [...] point injections we could do preprocedure evaluation. TENANCE PLANNING CLERK * Telephone Encounter - Thanh Chacon M.D. - 04/08/2023 7:37 AM MAINTENANCE PLANNING CLERK Yes, it is for a chest wall trigger point injection please. Thank you. TENANCE PLANNING CLERK documented in this encounter Plan of Treatment Upcoming Encounters Date Type Department Care Team (Latest Contact Info) Description 07/12/2023 7:50 AM CDT Hospital Encounter Post Anesthesia Care Unit in [place], [place] [address] [place] [phone] Corrina Zuniga M.D. [address] [place] [phone] 07/12/2023 7:50 AM CDT - 07/12/2023 11:42 AM CDT Surgery [facility] OR [address] [place] [phone] Corrina Zuniga M.D. [address] [place] [phone] OPEN REDUCTION INTERNAL FIXATION TIBIAL PLATEAU - LEFT, proceed as indicated 08/25/2023 10:00 AM CDT Appointment Department of Radiology in [place], [place] [address] [place] [phone] Thanh Chacon M.D. [address] [place] [address] 12/19/2023 9:10 AM MAINTENANCE PLANNING CLERK Appointment Department of Laboratory Medicine in [place] [address] [address] [facility] [place] [phone] Thanh Chacon M.D. [address] [facility] [place] [address] Scheduled Procedures Name Priority Associated Diagnoses Date/Ti me OPEN REDUCTION INTERNAL FIXA TION TIBIAL PLATEAU 07/12/2023 7:50 AM C DT documented as of this encounter Results * ME INJ TRIGGER PNT<=2 MUS, ME US GUIDE PLC NDL (05/03/2023 1:30 PM CDT) Narrative MMODAL - 05/03/2023 1:30 PM CDT Eva Velazco M.D. ? 05/03/2023 ??1:52 PM PM Trigger point injection (right cervical and left cervical) Performed by: Eva Velazco M.D. Authorized by: Thanh Chacon M.D. ?? Care team members present [...] fellow participated in the procedure, and the qa consultant was present for the entire procedure. OPERATIVE NOTE INFORMATION Specimens: 0 Drains: 0 Estimated blood loss: 0 Implants: 0 Thanh Chacon M.D. PROCEDURE/MINOR CASTILLO RGICAL ORDERABLES MMODAL NA documented in this encounter Visit Diagnoses Diagnosis Pain Chest Wall- Primary Pain Chest Wall documented in this encounter Additional Health Concerns Assessment Noted Time PHQ-9 Depression Total Score: 5 01/22/20 23 12:09 AM MAINTENANCE PLANNING CLERK documented as of this encounter Care Teams Auto Service Instructor Relationship Specialty Start Date End Date Thanh Chacon M.D. NPSofía: [phone] [address] [place] [phone] PCP - General Family Medicine 05/11/21 documented as of this encounter
--- OUTSIDE RECORDS SUMMARY | 2023-07-09 12:35 | XMS_ITS | Encounter Summary ---
Author Organization [facility] Address [address] [place] [address] Care Team Providers Care Paint Grinder Stone Mill Name Role Phone Lilli Chacon M.D. Primary Care Provider +1- [phone] Encounter Details Date Type Department Care Team (Latest Contact Info) Description 07/03/2023 Intake [facility] Social History Tobacco Use Types Packs/Day Years Used Date Smoking Tobacco: Former Cigarettes 2002 Smokeless Tobacco: Never Alcohol Use Standard Drinks/Week Comments Yes 2 (1 standard drink = 0.6 oz pur e alcohol) [facility] Utilities Answer Date Recorded In the past 12 months has e electric, gas, oil, or water company threatened to [...] often do you attend chur ch or anabaptist services? 1 to 4 times per year 09/13/2021 Do you belong to any clubs o r organizations such as mu-ism groups, unions, fraternal or athletic groups, or [...] Date Recorded PHQ-2 Score 4 06/16/2023 [facility] ional Health - Occupational [...] your living situation today? I have a [facility] place to live 07/04/2023 Education Answer Date Recorded What is the highest level of school you have completed or the highest degree you have received? Doctorate 09/05/2018 Sex and Gender Information Value Date Recorded Sex Assigned at Female 12/19/2016 7:29 PM EXPERIENCED TRUCK DRIVER Gender Identity Female 12/19/2016 7:29 PM EXPERIENCED TRUCK DRIVER Sexual Orientation Lesbian or Turcios 03/12/2020 12 :23 PM EXPERIENCED TRUCK DRIVER documented as of this encounter Last Filed Vital Signs Vital Sign Reading Time Taken Comments Blood Pressure 154/80 07/03/2023 7:14 PM CDT Pulse - - Temperature 36.5 ??C (97.7 ??F) 07/03/2023 7:14 PM CD T Respiratory Rate 18 07/03/2023 7:14 PM CDT Oxygen Saturation 98% 07/03/2023 7:14 PM CDT on room air Inhaled Oxygen Concentration - - Weight - - Height - - Body Mass Index - - documented in this encounter Plan of Treatment Upcoming Encounters Date Type Department Care Team (Latest Contact Info) Description 07/12/2023 7:50 AM CDT Hospital Encounter Post Anesthesia Care Unit in [place], [place] [address] [place] [address] Corrina Zuniga M.D. [address] [place] [address] 07/12/2023 7:50 AM CDT - 07/12/2023 11:42 AM CDT Surgery [facility] MAIN OR [address] [place] [address] Corrina Zuniga M.D. [address] [place] [address] OPEN REDUCTION INTERNAL FIXATION TIBIAL PLATEAU - LEFT, proceed as indicated 08/25/2023 10:00 AM CDT Appointment Department of Radiology in [place], [place] [address] [address] Lilli Chacon M.D. [address] [phone] 12/19/2023 9:10 AM EXPERIENCED TRUCK DRIVER Appointment Department of Laboratory Medicine in [place], [place] [address] [place] [address] Lilli Chacon M.D. [address] [phone] Scheduled Procedures Name Priority Associated Diagnoses Date/Ti me OPEN REDUCTION INTERNAL FIXA TION TIBIAL PLATEAU 07/12/2023 7:50 AM C DT documented as of this encounter Visit Diagnoses Not on filedocumented in this encounter Additional Health Concerns Assessment Noted Time PHQ-9 Depression Total Score: 9 06/16/19 24 7:14 AM CDT documented as of this encounter Care Teams Paint Grinder Stone Mill Relationship Specialty Start Date End Date Lilli Chacon M.D. [address] [address] PCP - General Family Medicine 05/11/21 documented as of this encounter
--- OUTSIDE RECORDS SUMMARY | 2023-07-09 12:35 | XMS_ITS | Encounter Summary ---
Author Organization [facility] Address [address] [place] [id number] Care Team Providers Care Pharmacy Clerk Name Role Phone Lilli Chacon M.D. Primary Care Provider [phone] Reason for Visit * Reason Comments Leg Pain * Auth/Cert (Routine) Specialty Diagnoses / Procedures Referred By Contac t Referred To Contact Diagnoses Fracture Tibial Plateau Closed Initial Left Tib Fib Fracture Procedures EMERGENCY Otis Mak M.D. [address] [place] [phone] Referral ID Status Reason Start Date Expiration Date Visits Re quested Visits Authorized [id number] 1 1 Encounter Details Date Type Department Care Team (Latest Contact Info) Description 07/03/2023 10:12 PM CDT - Present Hospital Encounter [facility], [facility], [facility], Eighth Floor [address] [place] [id number] Otis Mak M.D. [address] [place] [phone] Gibran Thompson D.O. [address] [place] [phone] Lisa Mota M.D. [address] [place] [phone] Jaxson Rodriguez M.D. [address] [place] [phone] Fracture Tibial Plateau Closed Initial Left (Primary Dx); Decline Functional Status [R53.81]; Difficulty Walking Orthopedic Cause [R26.2] Social History Tobacco Use Types Packs/Day Years Used Date Smoking Tobacco: Former Cigarettes 2002 Smokeless Tobacco: Never Alcohol Use Standard Drinks/Week Comments Yes 2 (1 standard drink = 0.6 oz pur e alcohol) [facility] Utilities Answer Date Recorded In the past 12 months has e electric, gas, oil, or water [employer] threatened to shut off services in your [...] often do you attend chur ch or lutheran services? 1 to 4 times per year 09/13/2021 Do you belong to any clubs o r organizations such as yarsanism groups, unions, fraternal or athletic groups, or [...] Answer Date Recorded PHQ-2 Score 4 06/16/2023 [facility] - Occupational Stress Questionnaire Answer Date [...] your living situation today? I have a karyna place to live 07/04/2023 Education Answer Date Recorded What is the highest level of school you have completed or the highest degree you have received? 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 - 07/09/2023 7:36 AM CDT OTS 4 Progress Note Hospital Admission Day: 07/03/2023 Postoperative Day: 6 SUBJECTIVE No acute events overnight. AFVSS. Pain is well controlled on oral medication. Denies any chest pain, shortness of breath, or calf pain. No recurrent episodes of severe pain. Multiple SNFs denied her given ex-fix or due to full occupancy. She will remain inpatient therefore for the weekend. We will likely proceed with definitive open reduction and internal fixation this coming week. VITALS Temperature: [36.7 ??C-37 ??C] 37 ??C Heart Rate: [70-133] 87 Resp Rate: [6-27] 17 Blood Pressure: (128-132)/(60-73) 132/60 SpO2: [89 %-98 %] 98 % Pulse Rate: [70-131] 86 PHYSICAL EXAM General: Awake, alert, no acute distress. Heart: Regular Rate. Extremities generally warm and well-perfused. Lungs: Non labored breathing, equal chest rise. Skin: No signs of breakdown from surgical positioning. MUSCULOSKELETAL: LEFT Lower Extremity: Overall appearance: Dressings are clean, dry, and intact. The second most distal Ex-fix pin site with very mild sanguinous drainage. There is significant swelling about the mid calf and proximal tibia with early fracture blister formation Palpation: Compartments are firm but compressible. Improved from yesterday. No pain with passive oractive great toe or ankle plantarflexion and dorsiflexion Sensation: SILT at L2 - S1 dermatomes and Superficial and deep peroneal, sural, saphenous, tibial distributions. Motor: Firing TA, GSC, EHL, FHL Circulation: No cyanosis noted. Palpable DP pulse DIAGNOSTICS Lab Results Component Value Date WBC 5.1 07/08/2023 HGB 9.1 (L) 07/08/2023 HCT 27.7 (L) 07/08/2023 MCV 95.8 07/08/2023 PLT 191 07/08/2023 Lab Results Component Value Date NA 139 07/08/2023 CL 104 07/08/2023 CO2 29 12/15/2015 Lab Results Component Value Date CREATININE 0.86 07/08/2023 Lab Results Component Value Date INR 1.1 07/03/2023 PT 11.7 07/03/2023 ASSESSMENT / PLAN IMPRESSION/REPORT/PLAN #1 Status post knee spanning external fixator placement for Schatzker 6 tibial plateau fracture on 07/04/2023 (Dr. Rodriguez weekend coverage with OTS-4) #1 Depression Major #2 Hypercholesterolemia #3 Regurgitation Mitral #4 Anxiety Generalized Disorder #5 Hypothyroidism #6 Obesity Body Mass Index 30-39.9 Adult #7 Fracture Tibial Plateau Closed Initial Left Patient is overall progressing well. Pain is controlled. We will plan for definitive fixation sometime next week potentially depending on how her soft tissues trend in the coming days. We are awaiting SNF placement between now and definitive surgical management. Skin is appearing intact apart from a nterolateral blistering which is stable. - Antibiotics: Perioperative Ancef x3 doses - Activity: Mobilize as tolerated. Non-weight bearing on operative extremity. Physical therapy to assist with mobility. - Consults: HIM, PT/OT, SW - DVT Prophylaxis: SCD's and early mobilization. Enoxaparin 30 mg BID. - Dressing: C/D/I - Diet: Adult Diet Regular - Pain: Scheduled acetaminophen, oxycodone PRN - Urinary: Urinary catheter to be removed today. - Disposition: Likely SNF Active issues PT/OT Pain control Disposition planning Comorbidities present on admission Past Medical History: Diagnosis Date Anxiety 03/25/2021 Bursitis Trochanteric Bilateral 10/24/2006 Cancer Colon Family History Depression Anxiety Dilated Aortic Root (HCC) 01/26/2018 Gastroesophageal Reflux Disease Hernia Hiatal Hypercholesterolemia Hypothyroidism Polyp Colon Polyp Colon Hyperplastic Tuberculosis Personal History as a child From 6am-6pm Tuesday-Tuesday, please contact OTS-4 at [phone] with any questions regarding this patient. If overnight [phone] or any time on weekends, please contact the Orthopedic Surgery house resident teacher education director at [phone]. * Hugo Baires, P.T.A. - 07/08/2023 3:19 PM CDT 07/08/23 1518 Reason Therapy Missed Reason Therapy Missed Patient declined therapy (Patient declined PT this morning due to just returning back to bed. Patient reports being very fatigued and would like to rest instead of doing PT. Will plan to sign patient up for treatment over the weekend.) * Olivia Castellanos D.T.R. - 07/08/2023 1:46 PM CDT Percentage of Meals Eaten for the past 72 hrs: Percent Meals Eaten (%) 07/07/23 0900 100 07/06/23 1941 100 07/06/23 0900 75 Patient was assessed and determined to be nutritionally stable. Clinical nutrition will sign off but will continue to screen per departmental guidelines. Please reconsult for any questions/concerns regarding patient's nutritional status. For questions about patient's nutritional care please contact pager [phone] on weekdays or [phone] on weekends/holidays. * Charisse Rowley L.G.S.W., M.S.W. - 07/08/2023 11:22 AM CDT SUBJECTIVE Social Work continues to follow to assist with discharge needs. Referrals Sent; (1) [facility] - declined 07/06; facility full (2) [facility] - declined; can reconsider after external fixation is removed (3) [facility] - declined; facility full (4) [facility] - pending; left a voicemail with Danna/Admissions 07/06 (5) [facility] - declined; payor source (rounding physicians require Medicare Part B forbilling purposes) (6) [facility] - declined; can reconsider after externalfixation is removed. New Referrals Sent; (7) [facility] - pending (8) [facility] - pending (9) [facility] - pending Social Work met with Patient and her spouse, Wanda. Social Work shared updates regarding referrals including the barriers of bed availability and Patient's planned readmission. Patient shares the impression from her medical team that she will likely remain in the hospital through her surgery due to this issue. She shares understanding and is appreciative of the care she has received at [facility]. Patient welcomed additional referrals closer to home as needed, including to the [facility] sites. Patient, Social Work, and Wanda also discussed the role of Home Health - for after short-term rehabilitationplacement or another option at hospital discharge should she progress enough to feel comfortable inreturning home. Patient is borrowing a walker from someone she knows and is interested in information for renting a wheelchair. OBJECTIVE Patient is currently admitted to [facility]. ASSESSMENT / PLAN ASSESSMENT Patient and her spouse, Wanda demonstrate insight into Patient's needs and are engaged in planning. Barriers - Planned Readmission for External Fixation Removal PLAN Patient anticipates discharge to a [facility] facility or [facility] - referrals pending Social Work will continue to follow to assist with discharge needs and/or to provide supportive visits. Sadaf Ramírez, M.S.W. 07/08/23 * Adeline Chino - 07/08/2023 10:59 AM CDT Occupational Therapy [facility] Inpatient Treatment SUBJECTIVE Patient's Name: Shreya Douglas Referring/Attending Provider: Jaxson Rodriguez M.D. Reason for Referral: Occupational Therapy Evaluation and Treatment History of Present Illness: Shreya Douglas is a 72 y.o. female who was admitted to [facility] in [place] on 07/03/2023 for Fracture Tibial Plateau Closed Initial Left [S82.142A]. Precautions Weight Bearing Status: non-weight bearing left LE Other Precautions: external fixator, anxiety, fall risk Pain Assessment: Pain Ratin/10 on a 0-10 point scale, Location: LLE Patient states level of pain is acceptable or tolerable to participate in therapy Pain intervention(s) used to address pain greater than 4: ambulation/activity repositioned Subjective Comments: Patient greeted in bed and agreeable to therapy session. OBJECTIVE Vital Signs: Vitals not formally assessed during session. No concerns during chart review and the patient had nosigns or symptoms consistent with vital changes during therapy session. Outcome Measures: [facility] Inpatient Short Form: Putting on and taking off regular lower body clothing?: A lot Putting on and taking off regular upper body clothing?: A Little Taking care of personal grooming such as brushing teeth?: A Little Bathing (including washing, rinsing, drying)?: Total Toileting, which includes using toilet, bedpan, or urinal?: A Little Eating meals?: A Little Daily Activities Raw Score (max 24): 15 Daily Activities Standardized Score: 34.69 Interpretation: Based on scoring guidelines using the raw score value: Those going to home had an average score at or above 18 Those going to facility had an average score at or below [address] [facility] Inpatient Short Form based on observed patient activity and/or clinical judgement (ie. patient can be scored without physically performing each activity) Cognition: No observable concerns with cognition at this time Therapeutic Interventions: BED MOBILITY: SUPINE to SIT - Assist Level: Stand By Assist - Device: use of bed rail, head of bed elevated, trapeze, patient utilized gait belt as a leg multicraft operator - Therapist Delivery: assessed - Assist/Cues: stand by assist provided if patient stated need for help moving LLE FUNCTIONAL TRANSFERS: SIT<>STAND - Assist Level: Contact Guard Assist - Equipment: front wheeled walker and gait belt - Surface: Bed, Chair - Therapist Delivery: assessed, educated - Assist/Cues: verbal for proper body mechanics, safety FUNCTIONAL MOBILITY: In-room mobility performed with contact guard assistance and front wheeled walker and gait belt Patient was left in bedside chair at end of session with call light in reach, all needs met and questions answered. Assessment Discharge Therapy Needs - OT: Ongoing skilled occupational therapy Skilled therapy can include occupational therapy provided in home health, outpatient or post-acute facility. The location of these services is determined by patient's care team in partnership with patient/family. Barriers to Discharge Home: Current functional status, Fall risk, Limited caregiver support, Inaccessible home environment Level of Care Needed - OT: Assistance with toileting, Assistance with dressing, Assistance with toilet/shower transfers, Assistance with meal preparation, Assistance with medication set up/administration, Assistance with financial representative, Assistance with transportation, Assistance with showering/bathing, Assistance with housekeeping, Assistance with eating/feeding, Assistance with shopping Clinical Impression: Currently, patient presents with impairments including pain, decreased strength, weight bearing precautions, and decreased activity tolerance resulting in functional deficits including impaired functional mobility and decreased independence with self care tasks. Patient displayed increased confidence with bed mobility and transfers when using the gait belt to move her own extremity. Patient was able to complete a stand to sit transfer with contact guard assistance during today's session. Patient was extremely pleasant and motivated to participate in occupational therapy session. The patient will benefit from ongoing occupational therapy services while hospitalized in order to improve engagement and independence in meaningful occupations Plan OT Plan Comments: toilet transfers, increase ambulation distance Functional Goals: OT Goal #1: Patient will verbalize and demonstrate an understanding of weightbearing precautions prior to discharge. OT Goal #1 Status: Achieved OT Goal #2: Patient will complete a toilet transfer, clothing management, and pericares with minimal assistance prior to discharge. OT Goal #2 Status: Ongoing OT Goal #3: Patient will complete a surface to surface transfer with minimal assistance prior to discharge. OT Goal #3 Status: Achieved Progress: Progressing toward goals Rehab potential: Ms. Romero Douglas has good potential to achieve established occupational therapy goals within the time frame outlined below. OT Frequency: OT Amount: 1 visit per day OT Frequency: 5 times per week OT Inpatient Duration : Until goals are met or hospital discharge Requires Inpatient OT Follow-Up: Yes OT - Next Inpatient Appointment: 07/11/23 Plan: Continue with current plan Treatment interventions may include: Treatment Interventions: Therapeutic exercise, Self-care/home management, Therapeutic functional activity Occupational Therapy Attestation Statement: Patient agrees with the plan of care and goals. Billing: Time Spent with Patient Therapeutic Interventions Home Management Training (min): 20 min Time Tracking Total Timed Units (min): 20 min Total Treatment Time (min): 20 min ALLISON Michelle Associated attestation - Cassi Sanders O.T., O.T.D. - 07/08/2023 3:54 PM CDT This therapist has reviewed all documentation and supervised today???s session. The therapist agrees with the plan developed in collaboration with the patient. * Gabriel Hooks M.D. - 07/08/2023 6:25 AM CDT OTS 4 Progress Note Hospital Admission Day: 07/03/2023 Postoperative Day: 5 SUBJECTIVE No acute events overnight. AFVSS. Pain is well controlled on oral medication. Denies any chest pain, shortness of breath, or calf pain. No recurrent episodes of severe pain. Multiple SNFs denied her given ex-fix, and we are awaiting word from a couple others. VITALS Temperature: [36.8 ??C-36.9 ??C] 36.8 ??C Heart Rate: [74] 74 Resp Rate: [14] 14 SpO2: [95 %-96 %] 96 % Pulse Rate: [74-77] 74 PHYSICAL EXAM General: Awake, alert, no acute distress. Heart: Regular Rate. Extremities generally warm and well-perfused. Lungs: Non labored breathing, equal chest rise. Skin: No signs of breakdown from surgical positioning. MUSCULOSKELETAL: LEFT Lower Extremity: Overall appearance: Dressings are clean, dry, and intact. The second most distal Ex-fix pin site with very mild sanguinous drainage. There is significant swelling about the mid calf and proximal tibia with early fracture blister formation Palpation: Compartments are firm but compressible. Improved from yesterday. No pain with passive oractive great toe or ankle plantarflexion and dorsiflexion Sensation: SILT at L2 - S1 dermatomes and Superficial and deep peroneal, sural, saphenous, tibial distributions. Motor: Firing TA, GSC, EHL, FHL Circulation: No cyanosis noted. Palpable DP pulse DIAGNOSTICS Lab Results Component Value Date WBC 5.1 07/08/2023 HGB 9.1 (L) 07/08/2023 HCT 27.7 (L) 07/08/2023 MCV 95.8 07/08/2023 PLT 191 07/08/2023 Lab Results Component Value Date NA 139 07/08/2023 CL 104 07/08/2023 CO2 29 12/15/2015 Lab Results Component Value Date CREATININE 0.86 07/08/2023 Lab Results Component Value Date INR 1.1 07/03/2023 PT 11.7 07/03/2023 ASSESSMENT / PLAN IMPRESSION/REPORT/PLAN #1 Status post knee spanning external fixator placement for Schatzker 6 tibial plateau fracture on 07/04/2023 (Dr. Rodriguez weekend coverage with [facility]) #1 Depression Major #2 Hypercholesterolemia #3 Regurgitation Mitral #4 Anxiety Generalized Disorder #5 Hypothyroidism #6 Obesity Body Mass Index 30-39.9 Adult #7 Fracture Tibial Plateau Closed Initial Left Patient is overall progressing well. Pain is controlled. We will plan for definitive fixation sometime next week potentially depending on how her soft tissues trend in the coming days. We are awaiting SNF placement between now and definitive surgical management. Skin is appearing intact apart from a nterolateral blistering which is stable. - Antibiotics: Perioperative Ancef x3 doses - Activity: Mobilize as tolerated. Non-weight bearing on operative extremity. Physical therapy to assist with mobility. - Consults: HIM, PT/OT, SW - DVT Prophylaxis: SCD's and early mobilization. Enoxaparin 30 mg BID. - Dressing: C/D/I - Diet: Adult Diet Regular - Pain: Scheduled acetaminophen, oxycodone PRN - Urinary: Urinary catheter to be removed today. - Disposition: Likely SNF Active issues PT/OT Pain control Disposition planning Comorbidities present on admission Past Medical History: Diagnosis Date Anxiety 03/25/2021 Bursitis Trochanteric Bilateral 10/24/2006 Cancer Colon Family History Depression Anxiety Dilated Aortic Root (HCC) 01/26/2018 Gastroesophageal Reflux Disease Hernia Hiatal Hypercholesterolemia Hypothyroidism Polyp Colon Polyp Colon Hyperplastic Tuberculosis Personal History as a child From 6am-6pm Tuesday-Tuesday, please contact OTS-4 at [phone] with any questions regarding this patient. If overnight [phone] or any time on weekends, please contact the Orthopedic Surgery house resident teacher education director at [phone]. * Adeline Chino 07/07/2023 3:33 PM CDT Occupational Therapy Acute Hospital Inpatient Treatment SUBJECTIVE Patient's Name: Shreya Douglas Referring/Attending Provider: Jaxson Rodriguez M.D. Reason for Referral: Occupational Therapy Evaluation and Treatment History of Present Illness: Shreya Douglas is a 72 y.o. female who was admitted to [facility] in [place] on 07/03/2023 for Fracture Tibial Plateau Closed Initial Left [S82.142A]. Precautions Weight Bearing Status: non-weight bearing left LE Other Precautions: Knee spanning external fixator; anxiety Pain Assessment: Pain not reported during session. Subjective Comments: Patient greeted in bed and agreeable to therapy session. OBJECTIVE Vital Signs: Vitals not formally assessed during session. No concerns during chart review and the patient had nosigns or symptoms consistent with vital changes during therapy session. Outcome Measures: AM-PAC Inpatient Short Form: Putting on and taking off regular lower body clothing?: Total Putting on and taking off regular upper body clothing?: A Little Taking care of personal grooming such as brushing teeth?: A Little Bathing (including washing, rinsing, drying)?: Total Toileting, which includes using toilet, bedpan, or urinal?: A lot Eating meals?: A Little Daily Activities Raw Score (max 24): 13 Daily Activities Standardized Score: 32.03 Interpretation: Based on scoring guidelines using the raw score value: Those going to home had an average score at or above 18 Those going to facility had an average score at or below [address] [facility] Inpatient Short Form based on observed patient activity and/or clinical judgement (ie. patient can be scored without physically performing each activity) Cognition: Patient lifted herself up from bed without walker or gait belt causing concerns for a lack of safety awareness. Therapeutic Interventions: BED MOBILITY: SUPINE to SIT - Assist Level: Stand By Assist - Device: head of bed elevated, trapeze, patient utilized gait belt as a leg multicraft operator - Therapist Delivery: assessed, educated - Assist/Cues: verbal for leg lifting technique FUNCTIONAL TRANSFERS: SIT<>STAND - Assist Level: Minimal Assist - Equipment: front wheeled walker and gait belt - Surface: Bed, Chair - Therapist Delivery: assessed, assisted - Assist/Cues: verbal for technique, proper body mechanics, safety TOILET TRANSFER - Assist Level: Minimal Assist - Equipment: front wheeled walker and gait belt - Approach: To and From - Surface: Toilet - Therapist Delivery: assessed, educated, assisted - Assist/Cues: verbal for technique, proper body mechanics, safety - Adaptive Equipment: Grab bars FUNCTIONAL MOBILITY: In-room mobility performed with contact guard assistance and front wheeled walker and gait belt. Patient ambulated from her bed to the bathroom and then to the chair with two rest breaks needed. ACTIVITIES OF DAILY LIVING: TOILETING - Assist Level: Modified Independent - Patient Location: Toilet - Activity: clothing management, pericare - Therapist Delivery: assessed - Assist/Cues: none Patient was left in bedside chair at end of session with call light in reach, all needs met and questions answered. Assessment Discharge Therapy Needs - OT: Ongoing skilled occupational therapy Skilled therapy can include occupational therapy provided in home health, outpatient or post-acute facility. The location of these services is determined by patient's care team in partnership with patient/family. Barriers to Discharge Home: Current functional status, Fall risk, Limited caregiver support, Inaccessible home environment Recommended Adaptive Equipment - OT: Shower chair with back, Grab bar(s) in shower, Grab bar(s) by toilet, Dressing aids, Elevated toilet seat Level of Care Needed - OT: Assistance with toileting, Assistance with dressing, Assistance with toilet/shower transfers, Assistance with meal preparation, Assistance with medication set up/administration, Assistance with financial representative, Assistance with transportation, Assistance with showering/bathing, Assistance with housekeeping, Assistance with eating/feeding, Assistance with shopping Clinical Impression: Currently, patient presents with impairments including pain, decreased strength, weight bearing precautions, and decreased activity tolerance resulting in functional deficits including impaired functional mobility and decreased independence with self care tasks. Patient made significant progress with functional mobility and was able to ambulate with walker to and from the bathroom. Patient was able to successfully perform a toilet transfer with verbal cuing for safety and technique. Patient presented with less anxiety over moving her left lower extremity when she was able to move her own extremity with gait belt. Patient was extremely pleasant and motivated to participate in occupational therapy session. The patient will benefit from ongoing occupational therapy services while hospitalized in order to improve engagement and independence in meaningful occupations Plan OT Plan Comments: progress endurance/activity tolerance, toilet transfers Functional Goals: OT Goal #1: Patient will verbalize and demonstrate an understanding of weightbearing precautions prior to discharge. OT Goal #1 Status: Achieved OT Goal #2: Patient will complete a toilet transfer, clothing management, and pericares with minimal assistance prior to discharge. OT Goal #2 Status: Progressing OT Goal #3: Patient will complete a surface to surface transfer with minimal assistance prior to discharge. OT Goal #3 Status: Progressing Progress: Progressing toward goals Rehab potential: Ms. Romero Douglas has good potential to achieve established occupational therapy goals within the time frame outlined below. OT Frequency: OT Amount: 1 visit per day OT Frequency: 5 times per week OT Inpatient Duration : Until goals are met or hospital discharge Requires Inpatient OT Follow-Up: Yes OT - Next Inpatient Appointment: 07/08/23 Plan: Continue with current plan Treatment interventions may include: Treatment Interventions: Therapeutic exercise, Self-care/home management, Therapeutic functional activity Occupational Therapy Attestation Statement: Patient agrees with the plan of care and goals. Billing: Time Spent with Patient Therapeutic Interventions Home Management Training (min): 24 min Time Tracking Total Timed Units (min): 24 min Total Treatment Time (min): 24 min Kira Lulú, OTS Associated attestation - Cassi Sanders O.T., O.T.D. - 07/07/2023 4:31 PM CDT This therapist has reviewed all documentation and supervised today???s session. The therapist agrees with the plan developed in collaboration with the patient. * Charisse Rowley L.G.S.W., M.S.WPrakash - 07/07/2023 11:28 AM CDT SUBJECTIVE Social Work continues to follow to assist with discharge needs. Referrals Sent; (1) [facility] - declined 07/06; facility full (2) [facility] - declined; can reconsider after external fixation is removed (3) [facility] - pending; left a voicemail with Natasha/Admissions 07/06 (4) [facility] - pending; left a voicemail with Danna/Admissions 07/06 (5) [facility] - declined; payor source (rounding physicians require Medicare Part B forbilling purposes) (6) [facility] - declined; can reconsider after externalfixation is removed. OBJECTIVE Patient is currently admitted to [facility]. ASSESSMENT / PLAN ASSESSMENT Social Work attempted to meet with Patient, but Patient was occupied in other care. Patient was notassessed at this time. Barriers - Planned Readmission for External Fixation Removal PLAN Patient anticipates discharge to a [facility] facility - referrals pending Social Work will continue to follow to assist with discharge needs and/or to provide supportive visits. Sadaf Ramírez, M.S.W. 07/07/23 * Alejandra Alejandro P.T., D.P.T. - 07/07/2023 9:35 AM CDT Physical Therapy Inpatient Treatment SUBJECTIVE Patient's Name: Shreay Douglas Referring/Attending Provider: Jaxson Rodriguez M.D. Reason for Referral: Physical Therapy Evaluate and Treat History of Present Illness: Shreya Douglas is a 72 y.o. female who was admitted to [facility] in [place] on 07/03/2023 for Fracture Tibial Plateau Closed Initial Left [S82.142A] Precautions Weight Bearing Status: non-weight bearing left LE Other Precautions: Knee spanning external fixator; anxiety Pain Assessment: Intermittent complaints of pain however does not quantify and 10 point scale Patient/Caregiver Goals: No goals stated Subjective Comments: Patient supine in bed with blinds closed upon therapist arrival; agreeable to physical therapy treatment session; agreeable to mobilize OBJECTIVE Vital Signs Vitals not formally assessed during session. No concerns during chart review and the patient had nosigns or symptoms consistent with vital changes during therapy session. Outcome Measures: [facility] Inpatient Short Form: -[facility] Basic Mobility (V.2) How much help from another person do you currently need???If the patient hasn't done an activity recently, how much help from another person do you think he/she would needif he/she tried? 1. Turning from your back to your side while in a flat bed without using bedrails?: A Lot 2. Moving from lying on your back to sitting on the side of a flat bed without using bedrails?: A Lot 3. Moving to and from a bed to a chair (including a wheelchair)?: A Lot 4. Standing up from a chair using your arms (e.g., wheelchair, or bedside chair)?: A Lot 5. To walk in hospital room?: A Lot 6. Climbing 3-5 steps with a railing?: Total -[facility] Basic Mobility (V.2) Raw Score: 11 -[facility] Basic Mobility (V.2) Standardized Score: 30.25 Interpretation: Based on scoring guidelines using the raw score value: Those going to home had an average score at or above 18 Those going to facility had an average score at or below 17 Clinicians answer the -[facility] Inpatient Short Form based on observed patient activity and/or clinical judgement (ie. patient can be scored without physically performing each activity) Therapeutic Interventions: SUPINE TO SIT: Assistance Level: Moderate Assistance of 1 Device: head of bed elevated, bedrail, and trapeze Assistance/Cueing: verbal, tactile, and visual for Lower extremity movement/management and Lower extremity placement Delivery: educated, instructed, assessed, facilitated, and assisted; heavy reliance from overhead trapeze SIT TO STAND: Assistance Level: Minimal Assistance, Moderate Assistance of 1 Device: gait belt and front wheeled walker Surface: Bed and Chair Assistance/Cueing: verbal, tactile, and visual for Adherence to weight bearing restrictions, Breathing technique, Lower extremity placement, Manual facilitation provided for force generation, Sequencing, Technique, and Upper extremity placement Delivery: educated, instructed, assessed, facilitated, assisted, and required tactile cues from therapist foot under left lower extremity to maintain nonweightbearing STAND TO SIT: Assistance Level: Moderate Assistance of 1 Device: gait belt and front wheeled walker Surface: Chair Assistance/Cueing: verbal, tactile, and visual for Adherence to weight bearing restrictions, Breathing technique, Eccentric control, and Lower extremity placement Delivery: educated, instructed, assessed, facilitated, assisted, and required tactile cues under left lower extremity to maintain nonweightbearing-difficulty with eccentric control on right lower extremity with heavy reliance on upper extremities for support PIVOT TRANSFERS: Surface:Bed to Chair Assistance Level: Moderate Assistance of 1 Device: gait belt and front wheeled walker Approach: stand pivot, to the right Assistance/Cueing: verbal, tactile, and visual for Placement of gait aid, Placement within the walker, Sequencing, Technique, and adherence to weight- bearing precautions Delivery: educated, instructed, assessed, facilitated, and assisted GAIT: Distance: 0.3125 meters Assistance Level:Moderate Assistance of 1 Device: gait belt and front wheeled walker Quality: decreased gait speed, decreased heel strike, decreased step height, decreased step length,decreased toe off Assistance/Cueing:verbal, tactile, and visual for Adherence to weight bearing precautions, Sequencing, Technique, and Walker Navigation Delivery: educated, instructed, assessed, facilitated, and assisted Comments: Patient able to take small steps forward from bedside chair; heavy reliance on walker secondary to weight-bearing precautions on left lower extremity-does require near continuous cues to maintain nonweightbearing on left lower extremity with tactile cues under left heel; quite fatigued with short distance-intermittent rolling of right ankle limiting progression of ambulation- encouraged patient to have family members bring shoes to improve stability on right foot Education: Provided education on role of physical therapy in the acute setting. Collaborated with patient and/or family on goals and plan of care. Weight Bearing: -Patient/Family provided education on weight bearing status/activity restrictions and how that alters mobility including but not limited to: during bed mobility, transfers, and ambulation with the appropriate gait aid. The patient/family educated on safe transfer techniques with functional mobility/activity. The patient's status was discussed and the following coordination of care occurred with the RN Patient was left in bedside chair at end of session with call light in reach, all needs met and questions answered. Assessment Discharge Therapy Needs - PT: Ongoing skilled physical therapy Level of Assistance Required Bed Mobility - Moderate x 1 Transfers - Minimal , Moderate x 1 Front Wheeled Walker Ambulation - Moderate x 1 Front Wheeled Walker - very short distance Stairs - Unable Level of Care Needed - PT: Assistance with transfers (Comment), Assistance with walking and moving around the home, Assistance with bed mobility, Assistance with stairs, Physical assistance needed Equipment Recommended - PT: Front-wheeled walker, Wheelchair Barriers to Discharge Home: Current functional status, Fall risk, Limited caregiver support, Inaccessible home environment From a physical therapy perspective, the level of care above has been recommended for Ms. Romero Douglas after hospital discharge. This level of care is based on her functional abilities during today's session. This may change throughout the hospital course and will be updated as appropriate. Clinical Impression: Patient able to ambulate very short distance this date with use of front wheeled walker and had slightly improved ability to maintain nonweightbearing on left lower extremity but does continue to required near continuous verbal and tactile cues from therapist during transfers. She continues to relyheavily on trapeze/hospital bed features for functional bed mobility. Grossly, she is requiring minimal to moderate assistance of 1 person for all upright mobility. She demonstrates limited activity tolerance, impaired functional mobility, need for assistance for all upright mobility, impaired balance and postural control, fatigue, weakness, decreased endurance, new weight-bearing precautions, and pain which is not her prior level of function, negatively impacts her ability to safely return to her home environment or participate in daily tasks, and places her at an increased risk for falls. Patient continues to require skilled physical therapy in order to optimize function, strength, and toaddress the above mentioned limitations. Mobility Recommendations: -Utilize moderate assistance of 1 person with front wheeled walker and gait belt to PIVOT for mobilization in order to assist patient to chair at least 3x/day/for all meals for pulmonary hygiene and safety Rehab potential: Ms. Romero Douglas has Good potential to achieve established physical therapy goals within the time frame outlined below. Progress: Slow progress, limited activity tolerance Plan PT Plan Comments: Train bed mobility; progress [id number]-tp-[id number] transfers; progress ambulation with chair follow Functional Goals: PT Inpatient Goals PT Goal #1: Patient will perform bed mobility with with minimal assistance of 1 person without hospital bed features in order to improve functional mobility PT Goal #1 Status: Advanced PT Goal #2: Patient will perform [id number] transfers with least restrictive assistive device andminimal assistance of 1 person while maintaining weight- bearing precautions in order to return to prior level of function PT Goal #2 Status: Progressing PT Goal #3: Patient will ambulate 10+m with least restrictive assistive device and modified independence while maintaining weight-bearing precautions in order to progress towards prior level of function PT Goal #3 Status: Slowly progressing Treatment Plan: Plan: Continue with current plan PT Amount: 1 visit per day PT Frequency: 5 times per week PT Inpatient Duration : Until goals are met or hospital discharge Requires Inpatient Follow-Up: Yes PT - Next Inpatient Appointment: 07/08/23 Patient agrees with the plan of care and goals. Treatment interventions may include: Treatment/Interventions: Therapeutic exercise, Therapeutic functional activity, Neuromuscular re-education, Gait training, Self-care/home management Billing: Time Spent with Patient Therapeutic Interventions Therapeutic Activity (min): 29 min Time Tracking Total Timed Units (min): 29 min Total Treatment Time (min): 29 min ([id number]) Catia Alejandro P.T., D.P.T. * Gabriel Hooks M.D. - 07/07/2023 8:21 AM CDT OTS 4 Progress Note Hospital Admission Day: 07/03/2023 Postoperative Day: 4 SUBJECTIVE No acute events overnight. AFVSS. Pain is well controlled on oral medication. Denies any chest pain, shortness of breath, or calf pain. She did not have any recurrent episodes of severe pain as she did 2 nights ago. Patient reports that she will require SNF placement between now and definitive fixation which wouldlikely occur sometime next week. VITALS Temperature: [36.8 ??C] 36.8 ??C Heart Rate: [76-83] 83 Resp Rate: [14-23] 23 SpO2: [95 %-98 %] 95 % Pulse Rate: [74-83] 83 PHYSICAL EXAM General: Awake, alert, no acute distress. Heart: Regular Rate. Extremities generally warm and well-perfused. Lungs: Non labored breathing, equal chest rise. Skin: No signs of breakdown from surgical positioning. MUSCULOSKELETAL: LEFT Lower Extremity: Overall appearance: Dressings are clean, dry, and intact. The second most distal Ex-fix pin site with very mild sanguinous drainage. There is significant swelling about the mid calf and proximal tibia with early fracture blister formation Palpation: Compartments are firm but compressible. Improved from yesterday. No pain with passive oractive great toe or ankle plantarflexion and dorsiflexion Sensation: SILT at L2 - S1 dermatomes and Superficial and deep peroneal, sural, saphenous, tibial distributions. Motor: Firing TA, GSC, EHL, FHL Circulation: No cyanosis noted. Palpable DP pulse DIAGNOSTICS Lab Results Component Value Date WBC 7.0 07/05/2023 HGB 9.9 (L) 07/05/2023 HCT 30.7 (L) 07/05/2023 MCV 94.8 07/05/2023 PLT 157 07/05/2023 Lab Results Component Value Date NA 141 07/05/2023 CL 106 07/05/2023 CO2 29 12/15/2015 Lab Results Component Value Date CREATININE 0.81 07/05/2023 Lab Results Component Value Date INR 1.1 07/03/2023 PT 11.7 07/03/2023 ASSESSMENT / PLAN IMPRESSION/REPORT/PLAN #1 Status post knee spanning external fixator placement for Schatzker 6 tibial plateau fracture on 07/04/2023 (Dr. Rodriguez weekend coverage with OTS-4) #1 Depression Major #2 Hypercholesterolemia #3 Regurgitation Mitral #4 Anxiety Generalized Disorder #5 Hypothyroidism #6 Obesity Body Mass Index 30-39.9 Adult #7 Fracture Tibial Plateau Closed Initial Left Patient is overall progressing well. No concern for compartment syndrome this morning. We will planfor definitive fixation sometime next week potentially depending on how her soft tissues trend in the coming days. We are awaiting SNF placement between now and definitive surgical management. - Antibiotics: Perioperative Ancef x3 doses - Activity: Mobilize as tolerated. Non-weight bearing on operative extremity. Physical therapy to assist with mobility. - Consults: HIM, PT/OT, SW - DVT Prophylaxis: SCD's and early mobilization. Enoxaparin 30 mg BID. - Dressing: C/D/I - Diet: Adult Diet Regular - Pain: Scheduled acetaminophen, oxycodone PRN - Urinary: Urinary catheter to be removed today. - Disposition: Likely SNF Active issues PT/OT Pain control Disposition planning Comorbidities present on admission Past Medical History: Diagnosis Date Anxiety 03/25/2021 Bursitis Trochanteric Bilateral 10/24/2006 Cancer Colon Family History Depression Anxiety Dilated Aortic Root (HCC) 01/26/2018 Gastroesophageal Reflux Disease Hernia Hiatal Hypercholesterolemia Hypothyroidism Polyp Colon Polyp Colon Hyperplastic Tuberculosis Personal History as a child From 6am-6pm Tuesday-Tuesday, please contact [facility] at [phone] with any questions regarding this patient. If overnight [phone] or any time on weekends, please contact the Orthopedic Surgery house resident teacher education director at [phone]. * Samantha Garcia V. P.T. - 07/06/2023 4:03 PM CDT Physical Therapy Inpatient Treatment SUBJECTIVE Patient's Name: Shreya Douglas Referring/Attending Provider: Jaxson Rodriguez M.D. Reason for Referral: Physical Therapy Evaluate and Treat History of Present Illness: Shreya Douglas is a 72 y.o. female who was admitted to [facility] in [place] on 07/03/2023 for Fracture Tibial Plateau Closed Initial Left [S82.142A] Precautions Weight Bearing Status: Non weight bearing left lower extremity Other Precautions: fall risk Pain Assessment: Pain Ratin/10 on a 0-10 point scale, Location: left lower extremity Patient/Caregiver Goals: Decrease pain and Return to prior level of function Subjective Comments: Patient agreed to session. OBJECTIVE Vital Signs Vitals monitored throughout session; within normal ranges. Outcome Measures: [facility] Inpatient Short Form: [facility] Basic Mobility (V.2) How much help from another person do you currently need???If the patient hasn't done an activity recently, how much help from another person do you think he/she would needif he/she tried? 1. Turning from your back to your side while in a flat bed without using bedrails?: A Lot 2. Moving from lying on your back to sitting on the side of a flat bed without using bedrails?: Total 3. Moving to and from a bed to a chair (including a wheelchair)?: Total 5. To walk in hospital room?: Total 6. Climbing 3-5 steps with a railing?: Total Interpretation: Based on scoring guidelines using the raw score value: Those going to home had an average score at or above 18 Those going to facility had an average score at or below [address] [facility] Inpatient Short Form based on observed patient activity and/or clinical judgement (ie. patient can be scored without physically performing each activity) Therapeutic Interventions: SUPINE <> SIT: Assistance Level: Maximal Assistance of 1 at left lower extremity Device: head of bed elevated, bedrail, and trapeze Assistance/Cueing: verbal and tactile for Breathing technique, Sequencing, Technique, and Upper extremity movement/management SIT TO STAND: Assistance Level: Assist x 2 (Moderate assist -minimal Assist x 1 at front wheeled walker +maximal assistance of 1 managing left lower extremity to keep it up off the floor.) Device: gait belt and front wheeled walker Surface: Bed Assistance/Cueing: verbal and tactile for Anterior weight shifting, Lower extremity placement, Manual facilitation provided for force generation, Sequencing, Technique, Upper extremity placement, andWalker placement Delivery: educated, instructed, assessed, and assisted STAND TO SIT: Assistance Level: Contact guard assist x 1 Device: gait belt and front wheeled walker Surface: Chair Assistance/Cueing: verbal and tactile for Alignment with seated surface, Eccentric control, Lower extremity placement, and Upper extremity placement Delivery: educated, instructed, assessed, and assisted GAIT: Distance: 0.52 meters Assistance Level: Contact guard assistance x 1 at front wheeled walker + RN assisting at left lowerextremity to keep it off the floor Device: gait belt and front wheeled walker Quality: antalgic, guarded, physical assist required to keep left lower extremity off the floor fornon weight bearing Assistance/Cueing:verbal and tactile for Placement of gait aid, Placement within the walker, Sequencing, Technique, Upright posture, Walker Navigation, and Weight shifting Delivery: instructed, assessed, and assisted THERAPEUTIC EXERCISE: Supine Therapeutic Exercise: Side: right, lower extremity(ies) Mode: active range of motion Exercises:Ankle pumps, Heel slides, Hip abduction/adduction, and Straight leg raises Repetitions: 10 Education : The patient/family educated on safe transfer techniques with functional mobility/activity. The patient's status was discussed and the following coordination of care occurred with the RN Patient was left in bed at end of session with call light in reach, all needs met and questions answered. Assessment Discharge Therapy Needs - PT: Ongoing skilled physical therapy Skilled therapy can include physical therapy provided by home health, outpatient clinic, or a post-acute facility. The location of these services is determined by the patient's care team in partnership with patient/family. Level of Care Needed - PT: Assistance with transfers (Comment), Assistance with walking and moving around the home, Assistance with bed mobility, Assistance with stairs, Physical assistance needed Equipment Recommended - PT: Front-wheeled walker Barriers to Discharge Home: Current functional status, Fall risk, Limited caregiver support From a physical therapy perspective, the level of care above has been recommended for Ms. Romero Douglas after hospital discharge. This level of care is based on her functional abilities during today's session. This may change throughout the hospital course and will be updated as appropriate. Clinical Impression: Patient is presenting with non weight bearing left lower extremity , increased pain , impaired dynamic standing balance , generalized weakness, reduced ability to keep left lower extremity off the floor for non weight bearing are main limiting factors. She requires maximal Assist at left lower extremity for supine <> sit and during functional transfers. She tolerated few short lateral steps with assist . Skilled PT during active hospitalization is necessary to optimize functional independence. Rehab potential: Ms. Romero Douglas has Good potential to achieve established physical therapy goals within the time frame outlined below. Progress: Slow progress, limited activity tolerance Plan PT Plan Comments: Progress bed mobility , functional transfers , pre gait activity as appropriate .Assist with discharge planning . Functional Goals: PT Inpatient Goals PT Goal #1: Patient will complete supine <> sit using a hospital bed features and with minimal assistance x 1 at left lower extremity . PT Goal #1 Status: Slowly progressing PT Goal #2: Pateient will tolerate Sit to stand and stand pivot transfers to/from right side using a front wheeled walker with minimal Assist x 1 to improve transfers . PT Goal #2 Status: Slowly progressing PT Goal #3: Patient will tolerate ambulation using a front wheeled walker, non- weight bearing left lower extremity up to 10M , minimal Assist x 1. PT Goal #3 Status: Ongoing Treatment Plan: Plan: Continue with current plan PT Amount: 1 visit per day PT Frequency: 5 times per week PT Inpatient Duration : Until goals are met or hospital discharge Requires Inpatient Follow-Up: Yes PT - Next Inpatient Appointment: 07/07/23 Patient agrees with the plan of care and goals. Treatment interventions may include: Treatment/Interventions: Therapeutic exercise, Therapeutic functional activity, Neuromuscular re-education, Gait training, Self-care/home management Billing: Time Spent with Patient Therapeutic Interventions Therapeutic Activity (min): 27 min Therapeutic Exercise (min): 6 min Time Tracking Total Timed Units (min): 33 min Total Treatment Time (min): 33 min Samantha Garcia P.T. * Adeline Chino - 07/06/2023 10:18 AM CDT Occupational Therapy [facility] Inpatient Treatment SUBJECTIVE Patient's Name: Shreya Douglas Referring/Attending Provider: Jaxson Rodriguez M.D. Reason for Referral: Occupational Therapy Evaluation and Treatment History of Present Illness: Shreya Douglas is a 72 y.o. female who was admitted to [facility] in [place] on 07/03/2023 for Fracture Tibial Plateau Closed Initial Left [S82.142A]. Precautions Weight Bearing Status: Non weight bearing left lower extremity Other Precautions: fall risk Pain Assessment: Pain Ratin/10 on a 0-10 point scale, Location: left lower extremity Subjective Comments: Patient greeted in bed and agreeable to therapy session. OBJECTIVE Vital Signs: Vitals not formally assessed during session. No concerns during chart review and the patient had nosigns or symptoms consistent with vital changes during therapy session. Outcome Measures: [facility] Inpatient Short Form: Putting on and taking off regular lower body clothing?: Total Putting on and taking off regular upper body clothing?: A Little Taking care of personal grooming such as brushing teeth?: A Little Bathing (including washing, rinsing, drying)?: Total Toileting, which includes using toilet, bedpan, or urinal?: A lot Eating meals?: A Little Daily Activities Raw Score (max 24): 13 Daily Activities Standardized Score: 32.03 Interpretation: Based on scoring guidelines using the raw score value: Those going to home had an average score at or above 18 Those going to facility had an average score at or below [address] [facility] Inpatient Short Form based on observed patient activity and/or clinical judgement (ie. patient can be scored without physically performing each activity) Cognition: No observable concerns with cognition at this time Therapeutic Interventions: ACTIVITIES OF DAILY LIVING: GROOMING - Assist Level: Supervision/Set-up - Patient Location: Chair - Activity: Brushing teeth - regular or soft brush - Therapist Delivery: assessed - Assist/Cues: Patient required set-up assistance to initiate task. BED MOBILITY: SUPINE to SIT - Assist Level: Modified Independent, +1 for LLE support - Device: head of bed elevated, trapeze - Therapist Delivery: assessed, assisted with LLE support as needed. - Assist/Cues: manual for lower extremity support FUNCTIONAL TRANSFERS: SIT<>STAND - Assist Level: Minimal Assist, x 1, +1 for LLE support - Equipment: front wheeled walker and gait belt - Surface: Bed - Therapist Delivery: assessed, instructed - Assist/Cues: verbal for technique, proper hand placement, proper leg placement, safety - # of reps: 3 Stand Pivot Transfer Assist Level: Minimal Assist, x 1, +1 for LLE supprt - Equipment: front wheeled walker and gait belt - Surface: Bed, Chair - Therapist Delivery: assessed, instructed - Assist/Cues: verbal for technique, proper hand/leg placement, safety, body mechanics Education/Training Provided: Functional Transfers: - Provided instruction and cues during functional sit to/from stand transfers, including body alignment to surface, appropriate hand placement, and optimal placement of extremities to optimize safetyand technique. Activity Recommendations During Hospitalization: - Recommended patient spend no longer than one hour in bedside chair at a time. Educated on the importance of transferring from bed to chair multiple times throughout day. Patient was left in bedside chair at end of session with call light in reach, all needs met and questions answered. Assessment Discharge Therapy Needs - OT: Ongoing skilled occupational therapy Skilled therapy can include occupational therapy provided in home health, outpatient or post-acute facility. The location of these services is determined by patient's care team in partnership with patient/family. Barriers to Discharge Home: Current functional status, Fall risk, Limited caregiver support Recommended Adaptive Equipment - OT: Shower chair with back, Grab bar(s) in shower, Grab bar(s) by toilet, Dressing aids, Elevated toilet seat Level of Care Needed - OT: Assistance with toileting, Assistance with dressing, Assistance with toilet/shower transfers, Assistance with meal preparation, Assistance with medication set up/administration, Assistance with financial representative, Assistance with transportation, Assistance with showering/bathing, Assistance with housekeeping, Assistance with eating/feeding, Assistance with shopping Clinical Impression: Currently, patient presents with impairments including pain, decreased strength, weight bearing precautions, and decreased activity tolerance resulting in functional deficits including impaired functional mobility and decreased independence with self care tasks. Patient verbalized an understanding of the importance of transferring between bed and chair multiple times throughout day. Patient reports her anxiety over transfers is easing with each successful transfer. Patient was extremely pleasant and motivated to participate in occupational therapy session. The patient will benefit from ongoing occupational therapy services while hospitalized in order to improve engagement and independence in meaningful occupations. Plan OT Plan Comments: ambulate within rooom, bathroom mobility Functional Goals: OT Goal #1: Patient will verbalize and demonstrate an understanding of weightbearing precautions prior to discharge. OT Goal #1 Status: Progressing OT Goal #2: Patient will complete a toilet transfer, clothing management, and pericares with minimal assistance prior to discharge. OT Goal #2 Status: Ongoing OT Goal #3: Patient will complete a surface to surface transfer with minimal assistance prior to discharge. OT Goal #3 Status: Progressing Progress: Progressing toward goals Rehab potential: Ms. Romero Douglas has good potential to achieve established occupational therapy goals within the time frame outlined below. OT Frequency: OT Amount: 1 visit per day OT Frequency: 5 times per week OT Inpatient Duration : Until goals are met or hospital discharge Requires Inpatient OT Follow-Up: Yes OT - Next Inpatient Appointment: 07/07/23 Plan: Continue with current plan Treatment interventions may include: Treatment Interventions: Therapeutic exercise, Self-care/home management, Therapeutic functional activity Occupational Therapy Attestation Statement: Patient agrees with the plan of care and goals. Billing: Time Spent with Patient Therapeutic Interventions Home Management Training (min): 33 min Time Tracking Total Timed Units (min): 33 min Total Treatment Time (min): 33 min ALLISON Michelle Associated attestation - Rich Bills O.T., O.T.D. - 07/06/2023 3:41 PM CDT I have reviewed all documentation and supervised today's session. Agree with the plan of care developed in collaboration with the patient. * Gabriel Hooks M.D. - 07/06/2023 6:34 AM CDT OTS 4 Progress Note Hospital Admission Day: 07/03/2023 Postoperative Day: 3 SUBJECTIVE No acute events overnight. AFVSS. Pain is well controlled on oral medication. Denies any chest pain, shortness of breath, or calf pain. She would some worsening pain overnight, in the house resident checked on her on a couple of occasions. This improved with pain medications. She reports that her pain is well-controlled this morning.She denies any paresthesias, motor dysfunction, and again her pain is better this morning. Patient reports that she will require SNF placement between now and definitive fixation which wouldlikely occur sometime next week. VITALS Temperature: [36.7 ??C-36.8 ??C] 36.7 ??C Heart Rate: [78-87] 87 Resp Rate: [14-19] 14 Blood Pressure: (139-150)/(66-76) 150/66 SpO2: [96 %-99 %] 99 % Pulse Rate: [76-89] 89 PHYSICAL EXAM General: Awake, alert, no acute distress. Heart: Regular Rate. Extremities generally warm and well-perfused. Lungs: Non labored breathing, equal chest rise. Skin: No signs of breakdown from surgical positioning. MUSCULOSKELETAL: LEFT Lower Extremity: Overall appearance: Dressings are clean, dry, and intact. The second most distal Ex-fix pin site with very mild sanguinous drainage. There is significant swelling about the mid calf and proximal tibia with early fracture blister formation Palpation: Compartments are firm but compressible. Improved from yesterday. No pain with passive oractive great toe or ankle plantarflexion and dorsiflexion Sensation: SILT at L2 - S1 dermatomes and Superficial and deep peroneal, sural, saphenous, tibial distributions. Motor: Firing TA, GSC, EHL, FHL Circulation: No cyanosis noted. Palpable DP pulse DIAGNOSTICS Lab Results Component Value Date WBC 7.0 07/05/2023 HGB 9.9 (L) 07/05/2023 HCT 30.7 (L) 07/05/2023 MCV 94.8 07/05/2023 PLT 157 07/05/2023 Lab Results Component Value Date NA 141 07/05/2023 CL 106 07/05/2023 CO2 29 12/15/2015 Lab Results Component Value Date CREATININE 0.81 07/05/2023 Lab Results Component Value Date INR 1.1 07/03/2023 PT 11.7 07/03/2023 ASSESSMENT / PLAN IMPRESSION/REPORT/PLAN #1 Status post knee spanning external fixator placement for Schatzker 6 tibial plateau fracture on 07/04/2023 (Dr. Rodriguez weekend coverage with OTS-4) #1 Depression Major #2 Hypercholesterolemia #3 Regurgitation Mitral #4 Anxiety Generalized Disorder #5 Hypothyroidism #6 Obesity Body Mass Index 30-39.9 Adult #7 Fracture Tibial Plateau Closed Initial Left Patient is overall progressing well. No concern for compartment syndrome this morning. We will planfor definitive fixation sometime next week most likely. Patient reports that she will require SNF placement between now and definitive fixation. - Antibiotics: Perioperative Ancef x3 doses - Activity: Mobilize as tolerated. Non-weight bearing on operative extremity. Physical therapy to assist with mobility. - Consults: HIM, PT/OT, SW - DVT Prophylaxis: SCD's and early mobilization. Enoxaparin 30 mg BID. - Dressing: C/D/I - Diet: Adult Diet Regular - Pain: Scheduled acetaminophen, oxycodone PRN - Urinary: Urinary catheter to be removed today. - Disposition: Likely SNF Active issues PT/OT Pain control Disposition planning Comorbidities present on admission Past Medical History: Diagnosis Date Anxiety 03/25/2021 Bursitis Trochanteric Bilateral 10/24/2006 Cancer Colon Family History Depression Anxiety Dilated Aortic Root (HCC) 01/26/2018 Gastroesophageal Reflux Disease Hernia Hiatal Hypercholesterolemia Hypothyroidism Polyp Colon Polyp Colon Hyperplastic Tuberculosis Personal History as a child From 6am-6pm Tuesday-Tuesday, please contact [facility] at [phone] with any questions regarding this patient. If overnight [phone] or any time on weekends, please contact the Orthopedic Surgery house resident teacher education director at [phone]. * Christianne Reno D.O. - 07/06/2023 2:50 AM CDT Miriam Lopez Misc Note I came to re-assess the patient. She was resting comfortably when I entered the room. She has not received dilaudid since 1:35 am and Oxycodone since 11:23 pm. SILT in all distributions. Able to wiggle the toes. No pain with active/passive ROM of the great toe. Given these findings, I am less concerned for compartment syndrome now. Will continue to keep a close eye on her throughout the morning. Christianne Reno DO [facility], pager [phone] * Christianne Reno D.O. - 07/06/2023 1:45 AM CDT [facility] John Miscellaneous note I received a page from nursing staff to come and evaluate patient for worsening LLE pain. I promptly evaluated the patient and when I arrived, she was in a significant amount of pain and could not get comfortable. She had pain with both passive and active extension of her great toe as well as with ankle dorsiflexion and plantarflexion. She mentioned this was a change from earlier in the day. She was in the chair from 4-5pm for dinner but has otherwise been elevating her leg on a blue foam ramp.I contacted the [facility] chief given my concern for compartment syndrome and we gave the patient 0.2 mg IV dilaudid. When Dr. Sommer arrived, she was much more comfortable after receiving dilaudid. We alsoremoved a blanket that was present behind the popliteal fossa. Plan will be to check the patient again in one hour to evaluate her pain and perform another clinical exam. Christianne Reno DO [facility], pager [phone] * Charisse Rowley L.G.S.W., M.S.W. - 07/05/2023 5:23 PM CDT SUBJECTIVE Social Work attempted to meet with Patient x2 earlier in the day; Patient engaged in other care. Social Work unable to return again late in the afternoon. OBJECTIVE Patient is currently admitted to [facility]. ASSESSMENT / PLAN ASSESSMENT Patient was not assessed at this time. PLAN Social Work to follow up tomorrow to completed assessment. Sadaf Ramírez, M.S.W. 07/05/23 * Quentin Amezquita M.D. - 07/05/2023 12:27 PM CDT RST Orthopedic Trauma Surgery [address] [place] [address] Supervisory Progress Note I saw and evaluated Mrs. Shreya Douglas on rounds today with our medicine team, participated in borden decision making and treatment planning, and I agree with the findings and plan as documented in today's progress note by the Internal Medicine resident, with the following comments: 72-year-old woman with a left tibial plateau fracture, underwent surgery with external fixator in place 07/04/2023. Medical comorbidities include hypothyroidism, hyperlipidemia and obesity. She is medically stable postoperatively. Recommend continuing to hold naltrexone perioperatively while being treated for perioperative pain. We will plan to sign off; please reengage our service if any medical issues arise. Please refer to today's Internal Medicine resident's note for additional details about our team's plan of care. Counseling was provided [id number] at bedside regarding the plan of care as stated above. I personally spent a total of 35 minutes in counseling and coordination of care today. * Cresencio Reno M.D. - 07/05/2023 7:20 AM CDT Medicine Consult Progress Note SUBJECTIVE 72 y/o F with hypothyroidism, HLD, obesity, mild mitral regurgitation, depression and anxiety who is admitted after mechanical fall and left closed tibial plateau fracture, now S/P external fixation on 07/03. Vital signs and labs available reviewed this morning. AM labs showed 3 point hgb drop 13.0->9.9.BMP unremarkable. Patient reports having some discomfort at base of heel, as if there is a blister forming there but otherwise as no acute concerns this morning. I have reviewed the current medication list. OBJECTIVE VITAL SIGNS Temperature: [36.4 ??C-37 ??C] 36.8 ??C Heart Rate: [67-112] 84 Resp Rate: [8-23] 15 Blood Pressure: (122-155)/(60-93) 134/62 SpO2: [92 %-100 %] 94 % Flow Rate (L/min): [1 L/min-2 L/min] 2 L/min Pulse Rate: [66-108] 84 Body mass index is 29.58 kg/m??. Intake/Output Last 24 Hours: Intake/Output Summary (Last 24 hours) at 07/05/2023 0720 Last data filed at 07/04/20232051 Gross per 24 hour Intake 1813 ml Output 15 ml Net 1798 ml PHYSICAL EXAMINATION General: well appearing, conversive HEENT: extraocular movements intact, moist mucous membranes Cardio: regular rate and rhythm, no murmurs Pulm: clear to auscultation bilaterally, normal work of breathing on room air Abd: soft, non-tender, non-distended Neuro: alert and oriented x4, no focal deficits MSK: left lower leg wrapped in dressing DIAGNOSTICS I have independently reviewed labs, ECG, xray, and diagnostics. ASSESSMENT / PLAN Ms. Romero Douglas is hospitalized on [email or web address]] Orthopedic Trauma Surgery [address] [place] [address] for evaluation and management of Fracture Tibial Plateau Closed Initial Left and is status post Surgery Information This Encounter Past Procedures (07/05/2022 to Today) Date Procedures Providers Loc / Dept 07/04/2023 APPLICATION EXTERNAL FIXATION LOWER EXTREMITY, KNEE SPANNING Jaxson Rodriguez M.D.Fareed Villagran M.D.Rosenow, Christian S, M.D.Madina Hansen M.D. [facility] OR Medicine Consult service was consulted for evaluation/recommendations of BLOSSOM and JUDIE. . #1 Depression Major #2 Hypercholesterolemia #3 Regurgitation Mitral #4 Anxiety Generalized Disorder #5 Hypothyroidism #6 Obesity Body Mass Index 30-39.9 Adult #7 Fracture Tibial Plateau Closed Initial Left 72 y/o F with hypothyroidism, HLD, obesity, mild mitral regurgitation, depression and anxiety who is admitted after mechanical fall and left closed tibial plateau fracture, now S/P external fixation on 07/03. She is doing well post-operatively. no further active medical issues at this time so we will sign off. SUMMARY OF RECOMMENDATIONS (including who will place which orders): No further recommendations, we will sign off MEDICATION MANAGEMENT: Home medications currently continued: Home medications currently held: Thank you for the opportunity to care for this patient. Medicine Consults will sign off. Please page the [facility] Medicine Consult Team 1 pager [phone] with any questions or concerns. The above plan of care was discussed with Dr. Amezquita. I personally spent a total of 35 minutes providing and coordinating care today. * Gabriel Hooks M.D. - 07/05/2023 6:05 AM CDT OTS 4 Progress Note Hospital Admission Day: 07/03/2023 Postoperative Day: 2 SUBJECTIVE No acute events overnight. AFVSS. Pain is well controlled on oral medication. Denies any chest pain, shortness of breath, or calf pain. I checked on her multiple times overnight to assess compartments. Symptomatically she continues to do well with no worsening pain, paresthesias, or sensorimotor deficits. She does complain of some discomfort on her left heel, so we will plan to replace her PFS boot today. VITALS Temperature: [36.4 ??C-36.8 ??C] 36.8 ??C Heart Rate: [67-112] 84 Resp Rate: [8-23] 15 Blood Pressure: (122-155)/(60-93) 134/62 SpO2: [92 %-100 %] 94 % Flow Rate (L/min): [1 L/min-2 L/min] 2 L/min Pulse Rate: [66-108] 84 PHYSICAL EXAM General: Awake, alert, no acute distress. Heart: Regular Rate. Extremities generally warm and well-perfused. Lungs: Non labored breathing, equal chest rise. Skin: No signs of breakdown from surgical positioning. MUSCULOSKELETAL: LEFT Lower Extremity: Overall appearance: Dressings are clean, dry, and intact. Ex-fix pin sites with very mild sanguinous drainage. There is significant swelling about the mid calf and proximal tibia with early fracture blister formation Palpation: Compartments are firm but compressible. No pain with passive or active great toe or ankle plantarflexion and dorsiflexion Sensation: SILT at L2 - S1 dermatomes and Superficial and deep peroneal, sural, saphenous, tibial distributions. Motor: Firing TA, GSC, EHL, FHL Circulation: No cyanosis noted. Palpable DP pulse DIAGNOSTICS Lab Results Component Value Date WBC 7.0 07/05/2023 HGB 9.9 (L) 07/05/2023 HCT 30.7 (L) 07/05/2023 MCV 94.8 07/05/2023 PLT 157 07/05/2023 Lab Results Component Value Date NA 141 07/05/2023 CL 106 07/05/2023 CO2 29 12/15/2015 Lab Results Component Value Date CREATININE 0.81 07/05/2023 Lab Results Component Value Date INR 1.1 07/03/2023 PT 11.7 07/03/2023 ASSESSMENT / PLAN IMPRESSION/REPORT/PLAN #1 Status post knee spanning external fixator placement for Schatzker 6 tibial plateau fracture on 07/04/2023 (Dr. Rodriguez weekend coverage with [facility]) #1 Depression Major #2 Hypercholesterolemia #3 Regurgitation Mitral #4 Anxiety Generalized Disorder #5 Hypothyroidism #6 Obesity Body Mass Index 30-39.9 Adult #7 Fracture Tibial Plateau Closed Initial Left - Antibiotics: Perioperative Ancef x3 doses - Activity: Mobilize as tolerated. Non-weight bearing on operative extremity. Physical therapy to assist with mobility. - Consults: HIM, PT/OT, SW - DVT Prophylaxis: SCD's and early mobilization. Enoxaparin 30 mg BID. - Dressing: C/D/I - Diet: Adult Diet Regular - Pain: Scheduled acetaminophen, oxycodone PRN - Urinary: Urinary catheter to be removed today. - Disposition: pending mobility Active issues PT/OT Pain control Disposition planning Comorbidities present on admission Past Medical History: Diagnosis Date Anxiety 03/25/2021 Bursitis Trochanteric Bilateral 10/24/2006 Cancer Colon Family History Depression Anxiety Dilated Aortic Root (HCC) 01/26/2018 Gastroesophageal Reflux Disease Hernia Hiatal Hypercholesterolemia Hypothyroidism Polyp Colon Polyp Colon Hyperplastic Tuberculosis Personal History as a child From 6am-6pm Tuesday-Tuesday, please contact [facility] at [phone] with any questions regarding this patient. If overnight [phone] or any time on weekends, please contact the Orthopedic Surgery house resident teacher education director at [phone]. * Toney Anderson M.D. - 07/04/2023 8:25 PM CDT ORTHOPEDIC SURGERY PROGRESS NOTE The patient was evaluated at bedside. We discussed the outcome of her surgery. She is yet to mobilize out of bed. On examination, the patient's left lower extremity is elevated on a blue foam ramp. The external fixator remains in place in the dressings remain in place. The patient endorses sensation to light touch in the DP, SP, tibial, sural, and saphenous nerve distributions. She has not experiencing any tingling or weakness in the left lower extremity. She is able to dorsiflex and plantar flex her ankle as well as each of her toes. She has a palpable dorsalis pedis pulse. Her compartments on the left lower extremity remain firm, similar to their state in surgery but they are compressible. We discussed that we will continue to closely monitor the patient's compartments overnight. She we will let us know if her symptoms change. All questions and concerns were addressed. * Ailin Chaparro, Pharm.DPrakash, R.Ph. - 07/04/2023 9:03 AM CDT Images from the original note were not included. Pharmacist Progress Note Reason for admission: s/p fall from ladder- displaced tibial plateau fracture PMH: depression, anxiety, hypothyroidism, GERD, dilated aortic root, HLD, COLLIN, intermittent/pruritic rash- has been on naltrexone for this for years (some info suggests naltrexone can be helpful in pruritis treatment & other derm conditions that are refractory) OBJECTIVE Home medications: Held: naltrexone Changed: statin interchange per P&T Prophylaxis: none presently- OR ASSESSMENT / PLAN Staged surgical plan per notes- OR today for application of LE external fixation, then definitive fixation Med profile reviewed Ailin Chaparro PharmNancy, R.Ph. Admission Medication History Note Adherence issues: No concerns Medication list source: Patient Prior to Admission Medications Med List Status: Pharmacy Complete Set By: Ailin Chaparro PharmNancy, R.Ph. at 07/04/2023 9:03 AM Taking? Last Dose Informant Start Date End Date LT buPROPion (WELLBUTRIN SR) 100 mg 12 hr tablet -- -- 04/08/23 -- Take 1 tablet by mouth 2 (two) times a day. EPINEPHrine (EpiPen) 0.3 mg/0.3 mL injection syringe -- -- 09/18/21 -- Inject 0.3 mL (0.3 mg total) intramuscularly as needed for anaphylaxis. Inject into the thigh. ibuprofen (MOTRIN) 800 mg tablet -- -- 01/28/23 -- Take 1 tablet (800 mg total) by mouth 3 (three) times a day as needed for pain (pain. take with food.). levothyroxine (SYNTHROID, LEVOTHROID) 100 mcg tablet -- -- 01/21/23 -- Take 1 tablet (100 mcg total) by mouth daily. Notes: Please fill when pt requests. naltrexone (DEPADE) 50 mg tablet -- -- 06/16/23 -- Take 0.5 tablets (25 mg total) by mouth 2 (two) times a day. pravastatin (PRAVACHOL) 80 mg tablet -- -- 06/16/23 -- Take 1 tablet (80 mg total) by mouth daily. Patient taking differently: Take 80 mg by mouth at bedtime. Notes: Increased dose triamcinolone (KENALOG) 0.1 % cream -- -- 09/07/22 -- Apply to affected area 1-2 times daily as needed. Avoid face and groin. Notes: 07/04/23- pt not currently using this * Joaquin Kim M.D. - 07/04/2023 5:14 AM CDT SUBJECTIVE Patient was seen and evaluated in her hospital room. She was admitted overnight following transferred to the emergency department with a displaced tibial plateau fracture following a fall from a 3 ftladder. Pain is adequately controlled. The patient has been NPO since midnight. She is not anticoagulated. OBJECTIVE VITAL SIGNS Temperature: [36.4 ??C-37.3 ??C] 37.3 ??C Heart Rate: [75-78] 75 Resp Rate: [13-18] 16 Blood Pressure: (99-154)/(54-80) 123/72 SpO2: [93 %-98 %] 93 % Height: [163 cm] 163 cm Pulse Rate: [70-85] 77 No intake/output data recorded. PHYSICAL EXAM General: Alert, no acute distress, resting comfortably in bed Skin: Intact where visualized. A well padded knee immobilizer is in place MSK: Left Lower extremity: Fires TA, GS, EHL, and FHL. SILT throughout the foot. 2+ DP pulse. Foot warm and well perfused. Brisk capillary refill in feet. No pain with passive flexion/extension of the toes. DIAGNOSTICS Lab Results Component Value Date WBC 9.4 07/03/2023 HGB 13.0 07/03/2023 HCT 39.2 07/03/2023 MCV 93.1 07/03/2023 PLT 188 07/03/2023 Lab Results Component Value Date NA 142 07/03/2023 CL 106 07/03/2023 CO2 29 12/15/2015 Lab Results Component Value Date CREATININE 0.85 07/03/2023 Lab Results Component Value Date INR 1.1 07/03/2023 PT 11.7 07/03/2023 ASSESSMENT / PLAN IMPRESSION/REPORT/PLAN # Left Schatzker tibial plateau fracture She has a significantly displaced and comminuted tibial plateau fracture with moderate distal extension. She has been temporarily immobilized in a well-padded knee immobilizer. We discussed the operative plan, which will be with a staged approach. We will plan for a knee spanning external fixator to allow for controlling of swelling and soft tissue rest. Postoperatively, we will obtain a CT scan for operative planning of definitive fixation. The patient has been NPO since midnight. They have been site marked and consented for surgery. Plan to proceed later today. She has been medically cleared for surgery. Antibiotics: Perioperative antibiotics for 24 hours postop Anticoagulation: Held for surgery and SCDs Activity: Bedrest until surgery Diet: NPO pending OR Catheter: none Disposition: OR later today Please contact OTS-3 with any questions or concerns regarding management of this patient. After surgery, please contact OTS-4. Anuel Kim MD OTS-3 Chief Resident documented in this encounter Consult Notes * Charisse Rowley, DarleneSLuzmaria., M.S.W. - 07/06/2023 10:42 AM CDTAssociated Order(s): IP CONSULT TO CARE MANAGEMENT Psychosocial Assessment SUBJECTIVE DEMOGRAPHIC INFORMATION Referral Source: Service/Provider Referral Reason: Psychosocial Assessment, Coping/Adjustment/Support, and Discharge Planning Person(s) present during interview: Patient Previous Psychosocial Assessment : No Primary care clinic and provider: Lilli Chacon M.D. (Currently In [place]; moving to [place] per Patient) They were advised of the various topics that will be assessed during this evaluation. They consented to proceed. The information provided in the assessment is based on review of the medical record aswell as the interview. They were advised that the content of this interview will be shared with the health care team. It was discussed that staff are mandated reporters and they reported understanding. HISTORY OF PRESENT ILLNESS Patient presents following a fall. SOCIAL HISTORY Family / Household: Lives with spouse, Wanda. History: None Reported Employment: Retired from [employer] in January; Still Professionally Engaged [facility] Utilities: N/A [facility] [facility] Food Insecurity: N/A SDOH Housing: N/A SDTX Intimate Partner Violence: N/A Psychosocial Risk Factors impacting the patient: none Abuse, Neglect, Maltreatment, Trauma: Current: Patient denied. ENVIRONMENTAL SUPPORTS Current Living Situation: Patient resides with her spouse in a split-level home; basement has a couch/shower/Patient's office; main bed on the upper level; twelve steps between levels. Anticipated modifications to the patient's home environment: None FUNCTIONAL STATUS (ADL's and IADL's) Dressing: independent Feeding: independent Bathing: independent Grooming: independent Toileting: independent Transfer to/from Bed, Chair, Etc.: independent Mobility: independent Meal Prep: independent Medication Setup/Administration: independent Telephone Use: independent Housekeeping: independent Shopping: independent Managing Finances: independent It is anticipated that the patient will need assistance with bathing, dressing, transfers to/from bed, chair, etc., mobility, meal preparation, housekeeping, shopping, and transportation use (drive car, use taxi/bus) ASSISTIVE DEVICES Patient has the following equipment: cell phone and eyeglasses Patient anticipates potentially needing the following additional equipment: walker - front wheeled Transportation needs: support from family/friends and wheelchair van FORMAL AND INFORMAL RESOURCES Patient reports no formal support services. Patient reports informal support from her spouse, Wanda and their friends. 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 Introduced self and reviewed role. Patient expressed understanding and appeared agreeable to the visit. Patient appears to be a reliable historian for the purpose of this assessment. Patient presents following a fall. Patient is currently admitted to Orthopedic Trauma Surgery-4 on NT-8A for post-operative management. Prior to hospitalization, Patient resided in a split-level home with her spouse, Wanda. Patient appeared to be independent with ADLs and IADLs. 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 Patient reports no formal support services and informal support from her spouse and friends. Patient endorses existing anxiety and depression diagnoses; she is currently prescribed Wellbutrin,which she feels is effective. Patient is not engaged in therapy services. Patient reports no concerns regarding suicidal ideation/intent, abuse/neglect, or substance use. Patient shares that she consu mes 1-2 alcohol beverages about four times a week. AUDIT = Low Risk In regards to discharge, Patient anticipates discharging to a [facility] facility. She anticipates follow-up for removal of her external fixation. A list of [facility] facility options (that they geographically reside or requested) has been provided to and reviewed with patient. Disclaimers: Financial disclosure provided informing patient of our ownership and financial relationship of the [facility], home health, and hospice agencies. Reviewed [facility] insurance coverage and provided in-network options. Referrals Sent; (1) [facility] - pending (2) [facility] - pending (3) [facility] - pending (4) [facility] - pending (5) [facility] - pending (6) [facility] pending Patient anticipates possibly having her spouse provide transport. Patient shared no additional questions or concerns at this time. Patient qualifies for the Senior LinkAge Line; information provided via AVS. Patient encouraged to reach out to Social Work as needed. IMPRESSION Patient is a 72-year-old female admitted on 07/03/2023. Eye contact is adequate. Is pleasant and cooperative. Psychomotor activity is normal. Speech is delivered at a normal rate, rhythm, and volume. Thought processes appear logical, relevant, and goal directed. No delusions, hallucinations, or other positive psychotic symptoms are elicited. Mood appears euthymic and affect appropriate and full. Cognitive functioning is estimated to be in at least the average range of intellectual ability. Judgment appears intact. INTERVENTIONS A comprehensive assessment was completed utilizing solution focused discussion with a strengths-based approach. PLAN Patient anticipates discharging to a [facility] facility - referrals pending. Social Work will continue to follow to assist with discharge needs and/or to provide supportive visits. Anticipated barriers to the transition of care/plan: None Cheyenne Ramírez., M.S.W. 07/06/2023 * Adeline Chino - 07/05/2023 2:24 PM CDT Occupational Therapy Acute Hospital Inpatient Evaluation/Treatment SUBJECTIVE Patient's Name: Shreya Douglas Referring/Attending Provider: Jaxson Rodriguez M.D. 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 Shreya Douglas has a past surgical history that includes Colonoscopic polypectomy (N/A, 12/14/2013); Echo Vascular (10/17/2014); Upper gastrointestinal endoscopy (10/04/2016); Colonoscopy (09/26/2014); and EXTERNAL FIXATION APPLICATION LOWER EXTREMITY (Left, 07/04/2023). History of Present Illness: Shreya Douglas is a 72 y.o. female who was admitted to [facility] in [place] on 07/03/2023 for Fracture Tibial Plateau Closed Initial Left [S82.142A]. Relevant Medical History: Anxiety, Depression, GERD Precautions Weight Bearing Status: Non weight bearing left lower extremity Other Precautions: fall risk Falls screen: Fall in the last 12 months: No falls reported other than one that led to hospitalization Did you have an injury with the fall: Yes Pain Assessment: Pain Ratin/10 on a 0-10 point scale, Location: left knee Subjective Comments: Patient greeted in bed and agreeable to therapy session. Home Living and Equipment: Lives with: Spouse/Significant other Type of Home: House Home Layout: One Level + basement Bedroom on main level, patient reports plan to sleep on couch in basement. Home Access: One four-inch step to enter home or can enter split-level basement with a ramp and no stair entry. Reports plan to use ramp and remain in basement. 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 OBJECTIVE Vital Signs: Vitals not formally assessed during session. No concerns during chart review and the patient had nosigns or symptoms consistent with vital changes during therapy session. Evaluation Assessment: STRENGTH: Left lower extremity impaired RANGE OF MOTION: Left lower extremity impaired Outcome Measures: -[facility] Inpatient Short Form: Putting on and taking off regular lower body clothing?: Total Putting on and taking off regular upper body clothing?: A Little Taking care of personal grooming such as brushing teeth?: A Little Bathing (including washing, rinsing, drying)?: Total Toileting, which includes using toilet, bedpan, or urinal?: Total Eating meals?: A Little Daily Activities Raw Score (max 24): 12 Daily Activities Standardized Score: 30.6 Interpretation: Based on scoring guidelines using the raw score value: Those going to home had an average score at or above 18 Those going to facility had an average score at or below 17 Clinicians answer the AM-[facility] Inpatient Short Form based on observed patient activity and/or clinical judgment (ie. patient can be scored without physically performing each activity) The [facility] post-concussion symptoms questionnaire: A quick quantitative measure post head injuryor accident experiencing symptoms in comparative with before the accident. 0 =not experienced at all. 1 =no more of a problem. 2 =a mild problem. 3 =a moderate problem. 4 = a severe problem. Headaches: 0 Feelings of dizziness: 0 Nausea and/or vomitin Noise sensitivity, easily upset by loud noise: 0 Sleep disturbance: 0 Fatigue, tiring more easily: 0 Being irritable, easily angered: 0 Feeling depressed or tearful: 0 Feeling frustrated her inpatient: 0 Forgetfulness, poor memory: 0 Poor concentration: 0 Taking longer to think: 0 Blurred vision: 0 Light sensitivity, easily upset by bright light: 0 Double vision: 0 Restlessness: 0 Total: 0/64 Cognition: No observable concerns with cognition at this time Therapeutic Interventions: BED MOBILITY: SUPINE to SIT - Assist Level: Modified Independent - Device: head of bed elevated, trapeze - Therapist Delivery: assessed - Assist/Cues: none FUNCTIONAL TRANSFERS: SIT<>STAND - Assist Level: Moderate Assist, x 2 - Equipment: front wheeled walker and gait belt - Surface: Bed, Chair - Therapist Delivery: assessed, instructed, assisted - Assist/Cues: verbal for technique, proper leg placement, balance, safety, weight shifting. 1 assist required to support LLE. Education/Training Provided: Functional Transfers: - Provided instruction and cues during functional sit to/from stand transfers, including body alignment to surface, appropriate hand placement, and optimal placement of extremities to optimize safetyand technique. - Provided education on role of occupational therapy in the acute setting. Collaborated with patient and/or family on goals and plan of care. Patient was left in bedside chair at end of session with call light in reach, all needs met and questions answered. Assessment Discharge Therapy Needs - OT: Ongoing skilled occupational therapy Skilled therapy can include occupational therapy provided in home health, outpatient or post-acute facility. The location of these services is determined by patient's care team in partnership with patient/family. Barriers to Discharge Home: Current functional status, Fall risk, Limited caregiver support Recommended Adaptive Equipment - OT: Shower chair with back, Grab bar(s) in shower, Grab bar(s) by toilet, Dressing aids, Elevated toilet seat Level of Care Needed - OT: Assistance with toileting, Assistance with dressing, Assistance with toilet/shower transfers, Assistance with meal preparation, Assistance with medication set up/administration, Assistance with financial representative, Assistance with transportation, Assistance with showering/bathing, Assistance with housekeeping, Assistance with eating/feeding, Assistance with shopping Clinical Impression: Currently, patient presents with impairments including pain, decreased strength, weight bearing precautions, and decreased activity tolerance resulting in functional deficits including impaired functional mobility and decreased independence with self care tasks. Patient scored a 0/64 on the [facility] Post- Concussion Symptoms Questionnaire and was educated to inform the team if any symptoms arise.Patient reported she has experienced less pain with each transfer she has done and that it has gonemore smoothly each time. Patient states spouse is not able to provide level of assistance/care needed and would like to review rehab options with social work. Patient was initially anxious to perform transfer but performed safe transfers with constant support and encouragement. Patient was extremely pleasant and motivated to participate in occupational therapy session. The patient will benefit from ongoing occupational therapy services while hospitalized in order to improve engagement and independence in meaningful occupations. Plan OT Plan Comments: progress mobility/activity tolerance Functional Goals: OT Goal #1: Patient will verbalize and demonstrate an understanding of weightbearing precautions prior to discharge. OT Goal #1 Status: Progressing OT Goal #2: Patient will complete a toilet transfer, clothing management, and pericares with minimal assistance prior to discharge. OT Goal #2 Status: Ongoing OT Goal #3: Patient will complete a surface to surface transfer with minimal assistance prior to discharge. OT Goal #3 Status: Progressing Progress: Progressing toward goals Rehab potential: Ms. Romero Duoglas has good potential to achieve established occupational therapy goals within the time frame outlined below. OT Frequency: OT Amount: 1 visit per day OT Frequency: 5 times per week OT Inpatient Duration : Until goals are met or hospital discharge Requires Inpatient OT Follow-Up: Yes OT - Next Inpatient Appointment: 07/06/23 Plan: Continue with current plan Treatment interventions may include: Treatment Interventions: Therapeutic exercise, Self-care/home management, Therapeutic functional activity Occupational Therapy Attestation Statement: Patient agrees with the plan of care and goals. Billing: Tiered OT Evaluation Codes: Comorbid Conditions: Mental health disorder, Other (Comment) (Gerd, anxiety, depression) Personal Factors: Needs assistive device Occupational Profile and History review: Expanded Performance Deficits: 3 - 5 performance deficits Evaluation Complexity: Moderate Time Spent with Patient Evaluations OT Eval - Mod Complexity: 8 min Therapeutic Interventions Home Management Training (min): 18 min Time Tracking Total Timed Units (min): 18 min Total Treatment Time (min): 26 min ALLISON Michelle Associated attestation - Cassi Sanders O.T., O.T.D. - 07/05/2023 3:27 PM CDT This therapist has reviewed all documentation and supervised today???s session. The therapist agrees with the plan developed in collaboration with the patient. * Samantha Garcia P.T. - 07/05/2023 1:19 PM CDT Physical Therapy Inpatient Evaluation/Treatment SUBJECTIVE Patient's Name: Shreya Douglas Referring/Attending Provider: Jaxson Rodriguez M.D. 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 Shreya Douglas has a past surgical history that includes Colonoscopic polypectomy (N/A, 12/14/2013); Echo Vascular (10/17/2014); Upper gastrointestinal endoscopy (10/04/2016); Colonoscopy (09/26/2014); and EXTERNAL FIXATION APPLICATION LOWER EXTREMITY (Left, 07/04/2023). History of Present Illness: Shreya Douglas is a 72 y.o. female who was admitted to [facility] in [place] on 07/03/2023 for Fracture Tibial Plateau Closed Initial Left [S82.142A]. Precautions Weight Bearing Status: Non weight bearing left lower extremity Other Precautions: fakk risks RST PT/OT Falls screen: Fall in the last 12 months: Yes Home Living and Equipment: Lives with: Spouse/Significant other Receives help from: No help from others Type of Home: House Home Layout: One Level + basement Bedroom on main level Bedroom in basement Full Bath main level Bathroom in basement Home Access: Has a one step to enter home from garage . Has a ramp to enter in walk out style Basement .She reports planning to remain in basement. Bathroom Accessibility: Acccessible via wheelchair Shower: Walk in shower in basement Toilet: Comfort Toilet Level: Basement/lower level Assistive Device Owned: No Assistive Device Adaptive Equipment Owned: None Other DME Owned: She reports her friend is brining a front wheeled walker, a art librarian , shower chair. Patient is planning to rent a Wheelchair with elevating foot rest if needed . Prior Level of Function and Mobility: Functional Mobility: Independent Basic Activities of Daily Living: Independent Instrumental Activities of Daily Living: Independent Driving: Yes Pain Assessment: Pain Ratin/10 on a 0-10 point scale, Location: left lower extremity Patient states level of pain is acceptable or tolerable to participate in therapy Pain intervention(s) used to address pain greater than 4: repositioned Patient/Caregiver Goals: Return to home and Return to prior level of function Subjective Comments: Patient agreed to session. OBJECTIVE Vital Signs: Vitals monitored throughout session; within normal ranges. Evaluation Assessments: Strength: Left lower extremity impaired Range of Motion: Left lower extremity impaired Balance: Static Sitting: Good (Maintains balance without support) Dynamic Sitting: Good (Maintains balance without support) Static Standing: Fair (Maintains balance with handheld assist) Dynamic Standing: Poor (Requires assist to maintain balance) Activity Tolerance: Endurance: Tolerates less than 10 minutes of activity Outcome Measures: -PAC Inpatient Short Form: AM-PAC Basic Mobility (V.2) How much help from another person do you currently need???If the patient hasn't done an activity recently, how much help from another person do you think he/she would needif he/she tried? 1. Turning from your back to your side while in a flat bed without using bedrails?: A Lot 2. Moving from lying on your back to sitting on the side of a flat bed without using bedrails?: Total 3. Moving to and from a bed to a chair (including a wheelchair)?: Total 4. Standing up from a chair using your arms (e.g., wheelchair, or bedside chair)?: Total 5. To walk in hospital room?: Total 6. Climbing 3-5 steps with a railing?: Total AM-PAC Basic Mobility (V.2) Raw Score: 7 AM-PAC Basic Mobility (V.2) Standardized Score: 19.39 Interpretation: Based on scoring guidelines using the raw score value: Those going to home had an average score at or above 18 Those going to facility had an average score at or below [address] [facility] Inpatient Short Form based on observed patient activity and/or clinical judgment (ie. patient can be scored without physically performing each activity) Therapeutic Interventions: SUPINE TO SIT: Assistance Level: Maximal Assistance of 1 at left lower extremity Device: head of bed elevated, bedrail, and trapeze Assistance/Cueing: verbal and tactile for Breathing technique, Sequencing, Technique, and Upper extremity movement/management SIT TO STAND: Assistance Level: Moderate assist x 1 at front wheeled walker ,maximal assistance x 1 managing leftlower extremity to keep it up off the floor. of 2 Device: gait belt and front wheeled walker Surface: Bed Assistance/Cueing: verbal and tactile for Anterior weight shifting, Lower extremity placement, Manual facilitation provided for force generation, Sequencing, Technique, Upper extremity placement, andWalker placement Delivery: educated, instructed, assessed, and assisted STAND TO SIT: Assistance Level: Moderate Assistance of 2 Device: gait belt and front wheeled walker Surface: Chair Assistance/Cueing: verbal and tactile for Alignment with seated surface, Eccentric control, Lower extremity placement, and Upper extremity placement Delivery: educated, instructed, assessed, and assisted PIVOT TRANSFERS: Surface:Bed to Chair Assistance Level: Maximal Assistance of 2 Device: gait belt and front wheeled walker Approach: stand pivot Assistance/Cueing: verbal and tactile for Forward gaze, Placement of gait aid, Placement within thewalker, Sequencing, Technique, Upright posture, and Weight shifting Delivery: educated, instructed, assessed, and assisted THERAPEUTIC EXERCISE: Seated Therapeutic Exercise: Side: right lower extremity Mode: active range of motion Exercises: Long arc quads, Seated heel raises, and Seated toe raises Repetitions: 5 Assist/cueing: Controlled breathing, Eccentric control, and Full range of motion Education: -Role of PT in acute setting and collaborated with patient and/or family on goals and plan of care. -Fall prevention -Home safety -Durable medical equipment recommendations -Activity precautions -Weight bearing precautions -Safe transfer techniques Patient was left in bedside chair at end of session with call light in reach, all needs met and questions answered. Assessment Discharge Therapy Needs - PT: Ongoing skilled physical therapy Skilled therapy can include physical therapy provided by home health, outpatient clinic, or a post-acute facility. The location of these services is determined by the patient's care team in partnership with patient/family. Level of Care Needed - PT: Assistance with transfers (Comment), Assistance with walking and moving around the home, Assistance with bed mobility, Assistance with stairs, Physical assistance needed Equipment Recommended - PT: Front-wheeled walker Barriers to Discharge Home: Current functional status, Fall risk From a physical therapy perspective, the level of care above has been recommended for Ms. Romero Douglas after hospital discharge. This level of care is based on her functional abilities during today's session. This may change throughout the hospital course and will be updated as appropriate. Clinical Impression: Currently, patient presents with decreased range of motion, decreased strength, increased pain, impaired static balance, impaired dynamic balance, decreased activity tolerance, and weight bearing precautions resulting in the following impaired bed mobility, impaired transfers, impaired gait, impaired ability to complete ADLs, and impaired ability to complete stairs. Patient is currently requiringmaximal Assist x 1 at left lower extremity to keep it up off the floor for non weight bearing during transfers and second person assist at front wheeled walker with verbal cues for sequencing , weight shifting to complete pivot transfers At baseline , Patient reports prior independence with all perez sfers, mobility with out using any gait device. She is functioning significantly below baseline at this time. Patient reports her is not able to provide significant assist which she is requiring currently . She will benefit from continuing with skilled PT during acute hospitalization ans well as post hospitalization to optimize functional safety and independence. Physical therapy treatment is medically necessary to restore and maximize function, maximize safetyand facilitate discharge to home, teach and educate the patient and/or caregivers. Progress: Slow progress, limited activity tolerance Plan PT Plan Comments: Progress bed mobility , functional transfers , pre gait activity as appropriate .Assist with discharge planning . Functional Goals: PT Inpatient Goals PT Goal #1: Patient will complete supine <> sit using a hospital bed features and with minimal assistance x 1 at left lower extremity . PT Goal #1 Status: Slowly progressing PT Goal #2: Pateient will tolerate Sit to stand and stand pivot transfers to/from right side using a front wheeled walker with minimal Assist x 1 to improve transfers . PT Goal #2 Status: Slowly progressing PT Goal #3: Patient will tolerate ambulation using a front wheeled walker, non- weight bearing left lower extremity up to 10M , minimal Assist x 1. PT Goal #3 Status: Ongoing Shreya Verónica Douglas has Good rehab potential to meet the expected outcomes in a reasonable period of time. Treatment Plan: Plan: Plan of care initiated PT Amount: 1 visit per day PT Frequency: 5 times per week PT Inpatient Duration : Until goals are met or hospital discharge Requires Inpatient Follow-Up: Yes PT - Next Inpatient Appointment: 07/06/23 Patient agrees with the plan of care and goals. Treatment interventions may include: Treatment/Interventions: Therapeutic exercise, Therapeutic functional activity, Neuromuscular re-education, Gait training, Self-care/home management Tiered PT Evaluation Codes: Personal Factors: Needs assistive device Examination elements: 3 Clinical Presentation: Evolving Clinical Decision Making: Moderate complexity clinical decision making Billing: Time Spent with Patient Evaluations PT Eval - Mod Complexity: 14 min Therapeutic Interventions Therapeutic Activity (min): 29 min Therapeutic Exercise (min): 1 min Time Tracking Total Timed Units (min): 30 min Total Treatment Time (min): 44 min Samantha Garcia P.T. * Bala Nelson M.D. - 07/04/2023 12:27 AM CDTAssociated Order(s): IP CONSULT TO HOSPITAL INTERNAL MEDICINE Medicine Consult - Preoperative Medical Evaluation Note REASON FOR CONSULT Perioperative medical evaluation Operation: left knee external fixation Date of surgery: 07/04/23 Indication: left closed tibial plateau fracture Urgency: urgent HISTORY OF PRESENT ILLNESS Ms. Romero Douglas is a 72 y.o. female referred for a preoperative medical evaluation. Their presentation comes in the context of hypothyroidism, hyperlipidemia, obesity, mild mitral regurg, and depression/anxiety. Patient had accidental fall off stairs while gardening today and landing on her left leg resulting in a left closed tibial plateau fracture. Orthopedic surgery was consulted who recommend operative treatment with left knee external fixation. She was otherwise in her usual state of health and deniesfevers, chills, cough, shortness of breath, chest pain, abdominal pain, diarrhea, dysuria, and blood in stool or urine. BLOSSOM History by System: General Functional status: Functional Class I: Able to perform >7 METS Anesthesia Personal or family history of anesthesia or airway complications: No Mallampati score: II (hard and soft palate, upper portion of tonsils anduvula visible) Hospitalization within the last 6 months: No. Cardiac: Valvular disease: mild mitral regurgitation Vascular: None Pulmonary: None Endocrine: Thyroid disease: hypothyroidism on replacement Hematologic: None Neurologic: None Psychiatric: Depression: in remission on medication Anxiety: controlled on medication Delirium risk: low Frailty: Well on clinical frailty scale GI: None Neph: None Drug allergies: Chlorine Substance/Herbs/Supplements EtOH: 1 drink/day Tobacco: none Illicit drug: none Other risk: PREG criteria A I have reviewed the current medication list. OBJECTIVE VITAL SIGNS Temperature: [36.4 ??C-36.5 ??C] 36.4 ??C Heart Rate: [78] 78 Resp Rate: [13-18] 13 Blood Pressure: (99-154)/(54-80) 136/79 SpO2: [95 %-98 %] 96 % Pulse Rate: [70-85] 85 There is no height or weight on file to calculate BMI. Intake/Output Last 24 Hours: No intake or output data in the 24 hours ending 07/04/23 0041 Current PHYSICAL EXAMINATION General: well appearing, conversive HEENT: pupils equally round and reactive to light, extraocular movements intact, moist mucous membranes Cardio: regular rate and rhythm, no murmurs, no lower extremity edema Pulm: clear to auscultation bilaterally, normal work of breathing on room air Abd: soft, non-tender, non-distended Neuro: alert and oriented x4, no focal deficits MSK: left lower leg wrapped in dressing DIAGNOSTICS I have independently reviewed the relevant studies. ASSESSMENT / PLAN Risk assessment Cardiovascular risk RCRI: 3.9% Carey Score (Risk of SD or arrest within 30 days): 0.2% DASI: 36.7, approximately 7-8 METs Pulmonary risk: ARISCAT score: <26. Low risk (1.6% risk of in-hospital postoperative pulmonary complications) STOP-BANG score: 0-2 (low risk for moderate to severe YOLI) VTE risk: Caprini score (Risk of perioperative DVT): 10.7%, highest risk #1 Fracture Tibial Plateau Closed Initial Left #2 Depression Major #3 Hypercholesterolemia #4 Regurgitation Mitral #5 Anxiety Generalized Disorder #6 Hypothyroidism #7 Obesity Body Mass Index 30-39.9 Adult Ms. Romero Douglas is a 72 y.o. female referred for a preoperative medical evaluation prior to leftknee external fixation, scheduled 07/04/23. Their presentation comes in the context of hypothyroidism, hyperlipidemia, obesity, mild mitral regurg, and depression/anxiety. The patient is medically optimized for their scheduled procedure: Yes.. They are at average risk ofperioperative medical complications with the following exceptions: High risk for perioperative DVT SUMMARY OF RECOMMENDATIONS (including who will place which orders): No further workup prior to urgent surgery Agree with holding home naltrexone (using as appetite suppressant for weight loss) Perioperative SCD use and chemical DVT prophylaxis per primary service MEDICATION MANAGEMENT: Home medications continued: bupropion, levothyroxine, pravastatin (ordered as atorvastatin) Home medications held: naltrexone Thank you for the opportunity to care for this patient. Medicine Consults will continue to follow. Please page the [facility] Medicine Consult Team 1 pager [phone] with any questions or concerns. I personally spent a total of 80 minutes providing and coordinating care today. * Ayaka Trivedi M.D. - 07/03/2023 10:28 PM CDT Orthopedic Trauma Surgery Consult Note Shreya Douglas ([phone]) 72 y.o.female Code: Full Reason for Consult: Left Schatzker tibial plateau fracture SUBJECTIVE History of Present Illness Ms. Romero Douglas is a 72 year old female w/ PMHx of mitral regurgitation ,GERD, hypothyroidism, and hypercholesterolemia who presented to the [facility] ED after sustaining a closed left tibial plateau fracture following a ground level fall this afternoon while working in her garden as an ED to ED transfer from [place]. They denied any head injury or loss of consciousness. Patient describes pain to the left lower leg as sharp, nonradiating, worsened with movement, and mostly relieved with rest. Denies any numbness, tingling, or weakness. Denied any chest pain, shortness of breath, fevers, or chills. At baseline, the patient is a community ambulator who does not use any gait aids. Denies antecedentpain. Denies prior injury to the area. They do not take any anticoagulant or immunosuppressive medications. They deny any smoking, alcohol use, or drug use. Last meal was consumed at 3 PM. Medical Comorbidities: Denies any diabetes, SD, stroke, DVT, COPD, history of deep joint infection, cardiac history, chronic kidney disease, cancer, or rheumatoid arthritis. OBJECTIVE Vitals Temperature: [36.4 ??C-36.5 ??C] 36.4 ??C Heart Rate: [78] 78 Resp Rate: [16-18] 16 Blood Pressure: (141-154)/(66-80) 141/66 SpO2: [96 %-98 %] 96 % Pulse Rate: [81] 81 Exam - General: Alert and oriented, not in acute distress, follows commands. - MSK: LEFT Lower Extremity: Overall appearance: Superficial abrasion to right distal wahl. Clean, dry, intact. Swelling throughout left lower leg. Compartments are soft. Calves soft and non-tender. Palpation: TTP about the left knee and lower leg ROM / Stability: knee ROM deferred at this time due to known fracture, significant pain Sensation: SILT at L2 - S1 dermatomes and Superficial and deep peroneal, sural, saphenous, tibial distributions. Motor: Firing Quads, Hamstrings, TA, GSC, EHL, FHL Circulation: No cyanosis noted. Dopplerable PT and DP pulses. Good capillary refill. Labs Lab Results Component Value Date HGB 13.6 10/08/2014 WBC 5.8 10/08/2014 PLT 195 10/08/2014 CREATININE 0.72 02/02/2023 NA 143 02/02/2023 Imaging Outside XR of the left tibia and fibula demonstrates a left Schatzker tibial plateau fracture with significant distal extension of the diaphyseal fracture. ASSESSMENT / PLAN Impression & Report # Left closed Schatzker tibial plateau fracture Recommendations / Plan: In brief, this is a 72-year-old female who presents with a left closed Schatzker tibial plateau fracture following a ground level fall while attending to her plants this afternoon. Acute surgical intervention is recommended at this time. We reviewed her imaging and diagnosis at bedside. Operative Management: After a discussion of the risks, benefits, and alternatives, the patient/family has elected to proceed with operative treatment, which is likely in the form of left knee spanning external fixation, followed by definitive fixation at a later date when the soft tissue injury has resolved. We discussed the postoperative course and the anticipated recovery timeline. Surgery willtentatively be scheduled for 07/04/23 pending medical and anesthesia clearance. We appreciate the involvement of our Hospital Internal Medicine service for preoperative clearance and inpatient medicalco-management. Informed Consent: I discussed with the patient the risks, benefits and alternatives to operative intervention to include but not limited to damage to soft tissue, muscle, skin, bones, nerves and blood vessels, failure of the operation, need for further operations, bleeding, and infection. The patient consents to a blood transfusion if necessary. [facility] multidisciplinary team approach wasdiscussed. Activity: NWB LLE in knee immobilizer Pain: Multimodal regimen including: Tylenol, Oxycodone, Dilaudid PRN VTE Prophylaxis: Heparin 5000u x1 dose the night prior to surgical management. Mechanical prophylaxis with SCDs. Antibiotics: Perioperative Ancef x2 doses. Diet: NPO at midnight Bowel Regimen: Senna scheduled. Bisacodyl suppository and Miralax PRN Cultures: None Catheter: None Code: Full Consults: SW for early discharge planning, PT/OT, HIM (BLOSSOM) Labs: Preoperative labs ordered (CBC, BMP, PT/INR, Type and Screen) Dispo: Surgery with [facility] From 6am-6pm Tuesday-Tuesday, please contact [facility] at [phone] with any questions regarding this patient. If overnight [phone] or any time on weekends, please contact the Orthopedic Surgery house resident teacher education director at [phone]. Ayaka Trivedi MD Orthopedic Surgery Resident 07/03/23 10:28 PM CDT documented in this encounter Nursing Notes * Nicholas Gallegos R.N. - 07/09/2023 5:24 AM CDT Shift Goals: Problem: PAIN - ADULT Goal: PT VERBALIZES/DEMONSTRATES ADEQUATE COMFORT LEVEL OR BASELINE Outcome: Progressing Problem: KNOWLEDGE DEFICIT Goal: Patient/family/caregiver demonstrates understanding of disease process, treatment plan, medications, and discharge instructions Outcome: Progressing Identify possible barriers to meeting goals/advancing plan of care: None. End of Shift Summary: RASS 0. Slept well with easy nonlabored respirations. PRN used: oxycodone Activity: Up w/assistx2 GB/Walker NWB: LLE Safety: Call light appropriate. Bed & Chair alarm. WAR. Q2H repositioning. CWMS: PP+2. 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 + wiggle toes Incision: Ext fix 3 pins LLE. Drains: None VSS: BP 132/60 (BP Location: Left arm;Upper, Patient Position: Semi-recumbent) Pulse 86 Temp 37??C (Oral) Resp 17 Ht 163 cm Wt 78.6 kg LMP (LMP Unknown) SpO2 98% BMI 29.58 kg/m?? 1L nc overnight. Pain assessment: 5 - Moderate pain/10; Location:Left Leg GI/: Voiding spontaneously, +gas. O2: RA. Continue to encourage pulmonary hygiene with incentive spirometer. Discharge Plan: HSC when medically ready Any care plans not addressed are progressing appropriately * Jaspal Flores RPrakashNPrakash - 07/08/2023 3:35 AM CDT Shift Goals: Clinical Goals for the Shift: Adequate pain control Identify possible barriers to meeting goals/advancing plan of care: none End of Shift Summary: Patient A&Ox3 and call light appropriate. Pain: Pt reports pain 2/10. Pain managed with scheduled tylenol PRN oxy, valium, and repositioning. VSS: BP 150/66 (BP Location: Left arm;Upper, Patient Position: Semi-recumbent) Pulse 74 Temp 36.8 ??C (Oral) Resp 14 Ht 163 cm Wt 78.6 kg LMP (LMP Unknown) SpO2 96% BMI 29.58 kg/m?? O2:RA CWMS: Pt denies any numbness/tingling to LLE. Pedal pulse present, adequate cap refill. Dressings/Drains: Third pin from external fixation with bleeding. Gauze changed as needed. GI/: Pt continent of bowel and bladder. Use of pure wick overnight. Any care plans not addressed are progressing appropriately * FloresJaspal dietz R.N. - 07/07/2023 6:00 AM CDT Shift Goals: Clinical Goals for the Shift: Adequate pain control Identify possible barriers to meeting goals/advancing plan of care: none End of Shift Summary: Patient A&Ox3 and call light appropriate. Pain: Pain rated 2/10. Pain managed with scheduled tylenol. PRN oxycodone and valium. And LLE repositioning and elevation. VSS: BP 150/66 (BP Location: Left arm;Upper, Patient Position: Semi-recumbent) Pulse 83 Temp 36.8 ??C Resp 23 Ht 163 cm Wt 78.6 kg LMP (LMP Unknown) SpO2 95% BMI 29.58 kg/m?? O2: RA Pertinent events: Pt remained in bed during shift. Pt slept intermittently. CWMS: Denies numbness/tingling to LLE. Dressings/Drains: 3rd pin site in LLE bleeding, gauze changed as needed. GI/: Pure wick in place. No BM during shift. Any care plans not addressed are progressing appropriately * Nicholas Gallegos R.N. - 07/06/2023 5:08 AM CDT Shift Goals: Problem: PAIN - ADULT Goal: PT VERBALIZES/DEMONSTRATES ADEQUATE COMFORT LEVEL OR BASELINE Outcome: Progressing Problem: SKIN/TISSUE INTEGRITY Goal: Skin/Tissue integrity maintained or improved Outcome: Progressing Identify possible barriers to meeting goals/advancing plan of care: None. End of Shift Summary: RASS 0. Slept well with easy nonlabored respirations. PRN used: oxycodone, dilaudid, valium, flexeril. Activity: Up with assistance NWB LLE. Safety: Call light appropriate. Bed & Chair alarm. WAR. Q2H repositioning. CWMS: PP+2. 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 + wiggle toes Incision:ext fix 4 pins anterior LLE Drains: None VSS: BP 150/66 (BP Location: Left arm;Upper, Patient Position: Semi-recumbent) Pulse 89 Temp 36.7 ??C (Oral) Resp 14 Ht 163 cm Wt 78.6 kg LMP (LMP Unknown) SpO2 99% BMI 29.58 kg/m?? Pain assessment: 04/16; Location:Left Leg GI/: Voiding spontaneously, +gas. O2: RA. Continue to encourage pulmonary hygiene with incentive spirometer. Discharge Plan: HSC when medically ready Any care plans not addressed are progressing appropriately. * Jane Nichole RPrakashN. - 07/04/2023 7:00 AM CDT End of shift Pt arrived to the unit around 0000. Pt A&O x 3, call light appropriate. Pt remained in bed overnight. Pt vitals and assessment as charted. Pt reports adequate pain management, see APR. Immobilizer remains in place on LLE. NPO since midnight. Intermittent sleep noted between care. Plan for surgical procedure today. BP 123/72 (BP Location: Left arm;Upper, Patient Position: Semi-recumbent) Pulse 77 Temp 37.3 ??C (Oral) Resp 16 Ht 163 cm LMP (LMP Unknown) SpO2 93% BMI 30.11 kg/m?? Problem: SAFETY ADULT - RISK FOR FALL AND OR FALL INJURY Goal: Patient remains free from fall/fall injury Outcome: Progressing Problem: PAIN - ADULT Goal: PT VERBALIZES/DEMONSTRATES ADEQUATE COMFORT LEVEL OR BASELINE Outcome: Progressing Problem: INFECTION - ADULT Goal: Absence of infection during hospitalization Outcome: Progressing documented in this encounter OR Notes * Op Note - Fareed Villagran M.D. - 07/04/2023 12:44 PM CDT Pre-op Diagnosis Fracture Tibial Plateau Closed Initial Left Post-op Diagnosis Fracture Tibial Plateau Closed Initial Left Pedicab Driver A first aid instructor actively participated and was necessary for one or more of the following: opening, exposure and visualization during the case, maintaining hemostasis, wound closure resulting in itssafe and expeditious completion. Findings As expected. Complications None Operative Note Narrative PRIMARY SURGEON: Dr. Jaxson Rodriguez PREOPERATIVE DIAGNOSIS: Left Tibial Plateau Fracture Fracture PROCEDURE: Left Knee Spanning External Fixator PROCEDURE DETAILS: Briefly, Ms. Shreya Douglas is a 72 y.o. female who sustained the aforementioned injury. Please refer to the clinical notes for further details of the history and physical examination. Informed consent outlining the risks, benefits, alternatives, necessity of other healthcare team members to participate, and details of the procedure. The patient was identified in the preoperative holdingarea and brought to the operating room. The patient underwent general anesthesia with our anesthesia colleagues and was positioned supine on the operating table. The operative extremity was prepped and draped in the normal sterile fashion. A surgical pause was performed to identify the correct patient, procedure, and operative site. Preoperative antibiotics were given within 30 min of skin incision. Intraoperative fluoroscopy was used to identify the fracture and verify the starting point for the proximal femoral pin. Once the starting point was identified in the proximal femur, incision was made approximately 1cm in length on the anterior aspect of the femur and spread down to bone bluntly. The triple sleeve was inserted and the pin site was predrilled followed by insertion of the pin. An incision was made over the distal femur on the anterior aspect and spread down bluntly to bone. The triple sleeve was inserted and pin site was pre drilled followed by the insertion of the pin in the distal femur. We then made a 1 cm incision on the anterior aspect of the distal tibia and spread down bluntly to bone. The triple sleeve was inserted and the pin site was pre drilled followed by the insertion of the pin in the distal tibia. Fluoroscopy was then utilized to ensure appropriate pin placement both on the AP and lateral views. When we were happy with the positioning of our pins, the femoral and tibial pins were connected with 2 bars via a bar to bar connector. We then marked out the distal extent of the fracture on the AP and lateral views and marked on the skin the position of the proximal tibial pin distal to the fracture site. A 1 cm incision was made on this onofre and we bluntly dissected down to bone. The triple sleeve was inserted in the pin site and it was pre drilled followed by insertion of the pin in the proximal tibia. We then utilized a bump under the ankle to help with our sagittal correction and this pin was connected to the bar along the distal tibia. Fluoroscopy was used to ensure adequate reduction of our fracture. A 2nd bar was connected to the distal femur and proximal tibia pins. Final x-rays were obtained. Xeroform and Kerlex was applied to the pin sit es. Counts were correct at the end of the case. The patient was placed in a PFS splint and the operative extremity was elevated with a blue foam ramp. Patient was awoken from anesthesia without complications and final flat plate xrays were completed. Patient was transferred to the PACU in stable condition. POST OPERATIVE PLAN: Antibiotics: Perioperative cefazolin x2 doses. VTE Prophylaxis: Enoxaparin 30 mg BID starting 07/05/2023 Weight bearing: Non-weight bearing on the left lower extremity. Imaging: CT scan of the left knee without contrast with 3D reconstruction Fareed Villagran M.D. documented in this encounter ED Notes * Gene Nguyen M.D. - 07/03/2023 10:20 PM CDT SUBJECTIVE CHIEF COMPLAINT/REASON FOR VISIT Leg Pain HISTORY OF PRESENT ILLNESS 72-year-old female sustained fall from 3 ft high was evaluated at an outside emergency department and found to have tibial plateau fracture. Was sent here for orthopedic consultation. She arrives in [facility] splint REVIEW OF SYSTEMS OBJECTIVE Initial Vitals Temp Pulse Heart Rate Resp BP SpO2 Pain Score PHYSICAL EXAMINATION Constitutional: Nursing note and vitals reviewed. She appears not lethargic. No distress. HENT: Head: Normocephalic and atraumatic. No signs of injury. Mouth/Throat: Mucous membranes are moist. Eyes: Conjunctivae are normal. Right eye exhibits no discharge. Left eye exhibits no discharge. Neck: Neck supple. Cardiovascular: Normal rate and regular rhythm. Edema: no edema noted Pulmonary/Chest: Effort normal. No stridor. No tachypnea. She exhibits no retraction. Abdominal: Soft. exhibits no distension. There is no guarding. Musculoskeletal: General: Tenderness (left knee), deformity and edema present. Cervical back: Normal range of motion and neck supple. Neurological: Alert and oriented to person, place, and time. She exhibits normal muscle tone. Skin: Skin is warm, dry, intact and normal color. She is not diaphoretic. Psychiatric: She has a normal mood and affect. Behavior is normal. Judgment and thought content normal. ASSESSMENT/PLAN Assessment and Plan 72-year-old female presents emergency department for evaluation of known tibial plateau fracture. Ortho evaluated the patient at bedside and has admitted to their service for fixation and OR. . Final Diagnoses: as of 07/06/23 1628 Fracture Tibial Plateau Closed Initial Left Gene Nguyen M.D. Resident 07/06/23 1631 * Otis Mak M.D. - 07/03/2023 10:20 PM CDT I have personally seen and examined this patient. I have fully participated in the care of this patient. I have reviewed all clinical information including history, physical exam, orders, and plan. Iagree with the note of the resident. I have reviewed and agree with the resident's note addendum. Assessment and Plan This is a very pleasant 72-year-old female. She is coming today with appears to be mostly an isolated left tibial plateau. Earlier today she was at home working in some stairs and fell from 3 ft high. She sustained a direct trauma to the left leg. She probably have some minor head trauma and leg pain as well as head pain. Vital signs are within normal limits. Physical exam reveals what appears to be a left swollen leg. Consistent with a tibial plateau fracture. Will obtain basic labs will proceed with consultation to Orthopedic surgery and anticipate admission to hospital.. DIFFERENTIAL DIAGNOSES Fracture. PROBLEMS ADDRESSED THIS VISIT Trauma. Final Diagnoses: as of 07/03/23 2238 Fracture Tibial Plateau Closed Initial Left The following tests were considered but ultimately not performed: CT chest. Escalation of care, including admission/observation, considered: Admission for management of life threatening condition. . My CT Scan interpretation is documented in ED Course. I discussed the management of the patient with: Admitting Provider and Orthopedic Surgeon. Otis Mak M.D. 07/03/23 9033 Otis Mak M.D. 07/07/23 7985 * Meka Bowie R.N. - 07/03/2023 10:17 PM CDT Pt arrives via EMS from [place]. Was hanging meyers at home, stepped backwards off 3 ft step ladder and missed and fell. Denies hitting head. Known L side tib fib fx. Pt denies numbness, tinglingin LLE. Received 100mcg Fent and 1mg Ativan in route. Meka Bowie R.N. 07/03/232220 documented in this encounter Plan of Treatment Upcoming Encounters Date Type Department Care Team (Latest Contact Info) Description 07/12/2023 7:50 AM CDT Hospital Encounter Post Anesthesia Care Unit in [place], [place] [address] [place] [phone] Corrina Zuniga M.D. [address] [place] [phone] 07/12/2023 7:50 AM CDT - 07/12/2023 11:42 AM CDT Surgery [facility] MAIN OR [address] [place] [phone] Corrina Zuniga M.D. [address] [place] [phone] OPEN REDUCTION INTERNAL FIXATION TIBIAL PLATEAU - LEFT, proceed as indicated 08/25/2023 10:00 AM CDT Appointment Department of Radiology in [place], [place] [address] [place] [address] Lilli Chacon M.D. 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 [address] [phone] Scheduled Orders Name Type Priority Associated Diagnoses Order Schedule Incentive Spirometry - RT/RN Respiratory Care Routine [id number] (o emily [id number]) until discontinued starting 07/04/2023 Scheduled Procedures Name Priority Associated Diagnoses Date/Ti me OPEN REDUCTION INTERNAL FIXA TION TIBIAL PLATEAU 07/12/2023 7:50 AM C DT documented as of this encounter Procedures The patient is currently admitted. The information in this section might not be complete until the patient is discharged. Procedure Name Priority Date/Time Associated Diagnosis Comments CBC WITHOUT DIFFERENTIAL, B Timed 07/08/2023 6:09 AM CDT BASIC METABOLIC PANEL, S/P Timed 07/08/2023 6:09 AM CDT CBC WITH DIFFERENTIAL, B Routine 07/05/2023 6:40 AM CDT BASIC METABOLIC PANEL, S/P Routine 07/05/2023 6:[address] KNEE [...] and all outpatients) 07/04/2023 2:11 PM CDT APPLICATION EXTERNAL FIXATION LOWER EXTREMITY 07/04/2023 11:33 AM CDT Fracture Tibial Plateau Closed Initial Left Special Needs SupineDiving boardWedge/rampPFS boot with extension postop DX FINGERS LEFT 2+ VIEWS RAD - Semiurgent (Fast; most ED patients; some inpatients) 07/03/2023 11:29 PM CDT DX CHEST 1 VIEW RAD - Semiurgent (Fast; most ED patients; some inpatients) 07/03/2023 11:29 PM CDT PROTHROMBIN TIME (PT), P STAT 07/03/2023 10:53 PM CDT CBC WITH DIFFERENTIAL, B STAT 07/03/2023 10:53 PM CDT TYPE AND SCREEN STAT 07/03/2023 10:53 PM CDT BASIC METABOLIC PANEL, S/P STAT 07/03/2023 10:53 PM CDT ECG STAT 07/03/2023 10:32 PM CDT documented in this encounter Results * (ABNORMAL) Basic Metabolic Panel (07/08/2023 6:09 AM CDT) Potassium, S 3.7 3.6 - 5.2 mmol/L [...] CDT Gabriel Hooks M.D. LAB BLOOD ADD-ON Performing Organization Address City/[facility]/ZIP Co de Phone Number [facility] [address] [place] [address], [facility] [address] [place] [address] * (ABNORMAL) CBC without Differential (07/08/2023 6:09 [...] CDT Gabriel Hooks M.D. LAB BLOOD ADD-ON [facility] [address] [place] [address], [facility] DTL [facility][note 3] [address] [place] [address] * (ABNORMAL) Basic Metabolic Panel (07/05/2023 6:40 AM CDT) Potassium, S 3.5(L) 3.6 - 5.2 mmol/L 07/05/2023 7:48 AM CDT DTL Sodium, S 141 135 - 145 mmol/L 07/05/2023 7:48 AM CDT DTL Chloride, S 106 98 - 107 mmol/L 07/05/2023 7:48 AM CDT DTL Bicarbonate, S 25 22 - 29 mmol/L 07/05/2023 7:48 AM CDT DTL Anion Gap 10 7 - 15 07/05/2023 7:48 AM CDT DTL BUN (Blood Urea Nitrogen), S 12 6 - 21 mg/dL 07/05/2023 7:48 AM CDT DTL Creatinine 0.81 0.59 - 1.04 mg/dL 07/05/2023 7:48 AM CDT DTL Estimated GFR (eGFR) 77 >=60 mL/min/BSA 07/05/2023 7:48 AM CDT DTL Comment: Estimated GFR calculated using the 2020 CKD_EPI creatinine equation. Calcium, Total, S 8.5(L) 8.8 - 10.2 mg/dL 07/05/2023 7:48 AM CDT DTL Glucose, S 108 70 - 140 mg/dL 07/05/2023 7:48 AM CDT DTL Blood (Blood, Venous) 07/05/2023 6:40 AM CDT 07/05/2023 7:30 AM CDT Cresencio Reno M.D. LAB BLOOD ADD-ON [facility] [address] [place] [address], [facility] [address] [place] [address] * (ABNORMAL) CBC with Differential, Blood (07/05/2023 6:40 AM CDT) Hemoglobin 9.9(L) 11.6 - 15.0 g/dL 07/05/2023 [...] CDT Cresencio Reno M.D. LAB BLOOD ADD-ON [facility] [address] [place] [address], [facility] DTL [facility][note 3] [address] [place] [address] [facility] [address] [place] [address] * CT Knee Left without IV Contrast [...] on this date for clinical details. Joaquin NUÑEZG FLUOROSCOPY PRO CEDURES 152 HOS LOS RST [...] Soft tissue swelling and edema. Phleboliths. Joaquin NUÑEZG DIAGNOSTIC IMAG ING PROCEDURES * DX Chest 1 View (07/03/2023 [...] lobe. Chest otherwise negative. Otis Mak M.D. [facility] DIAGNOSTIC IMAGI NG PROCEDURES * DX Fingers Left 2+ Views (07/03/2023 [...] finger. No radiopaqueforeign body. Otis Mak M.D. [facility] DIAGNOSTIC IMAGI NG PROCEDURES * Type and Screen (with Reflex Antibody ID) (07/03/2023 10:53 PM CDT) ABORh O Pos Not applicable 07/03/2023 11:19 PM CDT STRM Antibody Screen Negative Negative 07/03/2023 11:34 PM CDT STRM Type & Screen Expiration 07/06/2023 23:59 07/03/2023 11:19 PM CDT STRM Testing Location Marsha DEFAULT 07/03/2023 11:00 PM CDT STRM Blood (Blood, Venous) 07/03/2023 10:53 PM CDT 07/03/2023 11:00 PM CDT Otis Mak M.D. LAB BLOOD BANK TEST ORDERABLES [facility] [address] [place] [address], [facility] [address] [place] [address] * Basic Metabolic Panel (07/03/2023 10:53 PM CDT) Potassium, P 4.3 3.6 - 5.2 mmol/L 07/03/2023 11:14 PM CDT [facility] Sodium, P 142 135 - 145 mmol/L 07/03/2023 11:14 PM CDT [facility] Chloride, P 106 98 - 107 mmol/L 07/03/2023 11:14 PM CDT [facility] Bicarbonate, P 24 22 - 29 mmol/L 07/03/2023 11:14 PM CDT [facility] Anion Gap, P 12 7 - 15 07/03/2023 11:14 PM CDT [facility] BUN (Blood Urea Nitrogen), P 15 6 - 21 mg/dL 07/03/2023 11:14 PM CDT [facility] Creatinine 0.85 0.59 - 1.04 mg/dL 07/03/2023 11:14 PM CDT [facility] Estimated GFR (eGFR) 73 >=60 mL/min/BSA 07/03/2023 11:14 PM CDT STMA Comment: Estimated GFR calculated using the 2020 CKD_EPI creatinine equation. Calcium, Total, P 8.8 8.8 - 10.2 mg/dL 07/03/2023 11:14 PM CDT [facility] Glucose, P 120 70 - 140 mg/dL 07/03/2023 11:14 PM CDT [facility] Blood (Blood, Venous) 07/03/2023 10:53 PM CDT 07/03/2023 10:58 PM CDT Otis Mak M.D. LAB BLOOD ADD-ON [facility] [address] [place] [address] * Prothrombin Time (PT) (07/03/2023 10:53 PM CDT) Pathologist [facility] Prothrombin Time, P 11.7 9.4 - 12.5 sec 07/03/2023 11:04 PM CDT [facility] 1.1 0.9 - 1.1 07/03/2023 11:04 PM CDT [facility] Comment: ----ADDITIONAL INFORMATION---- Standard intensity warfarin therapeutic range: 2.0 to 3.0 ?? High intensity warfarin therapeutic range: 2.5 to 3.5 Blood (Blood, Venous) 07/03/2023 10:53 PM CDT 07/03/2023 10:58 PM CDT Otis Mak M.D. LAB BLOOD ADD-ON [facility] [address] [place] [address], [facility] [address] [place] [address] * (ABNORMAL) CBC with Differential, Blood (07/03/2023 10:53 PM CDT) [facility] Hemoglobin 13.0 11.6 - 15.0 g/dL 07/03/2023 11:01 PM CDT [facility] Hematocrit 39.2 35.5 - 44.9 % 07/03/2023 11:01 PM CDT [facility] Erythrocytes 4.21 3.92 - 5.13 x10(12)/L 07/03/2023 11:01 PM CDT [facility] MCV 93.1 78.2 - 97.9 fL 07/03/2023 11:01 PM CDT [facility] RBC Distrib Width 12.9 12.2 - 16.1 % 07/03/2023 11:01 PM CDT [facility] Platelet Count 188 157 - 371 x10(9)/L 07/03/2023 11:01 PM CDT [facility] Leukocytes 9.4 3.4 - 9.6 x10(9)/L 07/03/2023 11:01 PM CDT [facility] Neutrophils 7.85(H) 1.56 - 6.45 x10(9)/L 07/03/2023 11:01 PM CDT [facility] Lymphocytes 0.87(L) 0.95 - 3.07 x10(9)/L 07/03/2023 11:01 PM CDT [facility] Monocytes 0.65 0.26 - 0.81 x10(9)/L 07/03/2023 11:01 PM CDT [facility] Eosinophils <0.03 0.03 - 0.48 x10(9)/L 07/03/2023 11:01 PM CDT [facility] Basophils 0.04 0.01 - 0.08 x10(9)/L 07/03/2023 11:01 PM CDT [facility] Blood (Blood, Venous) 07/03/2023 10:53 PM CDT 07/03/2023 10:58 PM CDT Otis Mak M.D. LAB BLOOD ADD-ON [facility] [address] [place] [address], [facility] STMA [facility][note 3] [address] [place] [address] DHPM [facility][note 3] [address] [place] [address] * ECG 12 Lead (07/03/2023 10:32 PM CDT) Ventricular Rate ECG/Min 77 BPM MUSE AR Interval 146 ms MUSE QRSD Interval 76 ms MUSE QT Interval 400 ms MUSE QTC Interval 452 ms MUSE P Baltic 50 degrees MUSE R [place] 16 degrees MUSE T Wave [place] 44 degrees MUSE 07/03/2023 10:3 2 PM [...] Otis Mak M.D. ECG ORDERABLES MUSE NA documented in this encounter Visit Diagnoses Diagnosis Fracture Tibial Plateau Closed Initial Left- Primary Fracture Tibial Plateau Closed Initial Left Decline Functional Status [R53.81] Difficulty Walking Orthopedic Cause [R26.2] Anxiety Generalized Disorder Depression Major Hypercholesterolemia Hypothyroidism Obesity Body Mass Index 30-39.9 Adult Regurgitation Mitral documented in this encounter Admitting Diagnoses Diagnosis Fracture Tibial Plateau Closed Initial Left documented in this encounter Administered Medications Active Administered Medications - up to 3 most recent administrations Medication Order MAR Action Action Date Dose Rate Site acetaminophen tablet 1,000 mg (TYLENOL) 1,000 mg, oral, 4 times daily, First dose on Tue07/04/23 at 0800 Given 07/09/2023 9:40 AM CDT 1,000 mg Given 07/08/2023 9:01 PM CDT 1,000 mg Given 07/08/2023 4:45 PM CDT 1,000 mg atorvastatin tablet 20 mg (LIPITOR) 20 mg, oral, Daily at bedtime, First dose on Tue07/04/23 at 2100, atorvastatin 20 mg oral daily was interchanged for pravastatin oral daily Given 07/08/2023 9:01 PM CDT 20 mg Given 07/07/2023 8:07 PM CDT 20 mg Given 07/06/2023 8:38 PM CDT 20 mg buPROPion 12 hr tablet 100 mg (WELLBUTRIN SR) 100 mg, oral, 2 times daily, First dose on Tue07/04/23 at 0900, Swallow whole. Do NOT crush, chew, or split tablet. Given 07/09/2023 9:40 AM CDT 100 mg Given 07/08/2023 9:01 PM CDT 100 mg Given 07/08/2023 8:31 AM CDT 100 mg calcium citrate-vitamin D3 315 mg-5 mcg (200 Unit) per tablet 2 tablet (CITRACAL+D) 2 tablet, oral, 2 times daily, First dose on Tue07/04/23 at 0900 Given 07/09/2023 9:40 AM CDT 2 tablets Given 07/08/2023 9:02 PM CDT 2 tablets Given 07/08/2023 8:31 AM CDT 2 tablets D5W infusion 1-999 mL/hr, intravenous, As needed, Medications Incompatible with 0.9% NaCL, Starting on Tue07/04/23 at 0118, Infuse at the same rate as the piggyback until tubing clears or up to a volume of 20 mL pre and post infusion for medications incompatible with 0.9% NaCL. Use 50 mL bag then discard. diazePAM tablet 5 mg (VALIUM) 5 mg, oral, 3 times daily PRN, muscle spasms, Starting on Tue07/05/23 at 2345 Given 07/08/2023 5:06 AM CDT 5 mg Given 07/07/2023 9:31 PM CDT 5 mg Given 07/07/2023 2:58 AM CDT 5 mg enoxaparin injection 30 mg (LOVENOX) 30 mg, subcutaneous, 2 times daily, First dose on Tue07/05/23 at 0900 Given 07/09/2023 9:40 AM CDT 30 mg Le ft Lower Abdomen Given 07/08/2023 9:02 PM CDT 30 mg Le ft Upper Arm (Back) Given 07/08/2023 8:31 AM CDT 30 mg Le ft Upper Arm (Back) levothyroxine tablet 100 mcg (SYNTHROID, LEVOTHROID) 100 mcg, oral, Daily before breakfast, First dose on Tue07/04/23 at 0700 Given 07/09/2023 6:38 AM CDT 100 mcg Given 07/08/2023 6:24 AM CDT 100 mcg Given 07/07/2023 6:32 AM CDT 100 mcg loratadine tablet 10 mg (CLARITIN) 10 mg, oral, Daily, First dose on Tue07/09/23 at 0900, loratadine 10 mg oral daily was interchanged for cetirizine 10 mg oral daily Given 07/09/2023 9:40 AM CDT 10 mg NaCl 0.9% infusion 1-999 mL/hr, intravenous, As needed, Between Consecutive Piggyback Medications, Starting on Tue07/04/23 at 0118, Infuse at the same rate as the piggyback until tubing clears or up to a volume of 20 mL. Select for IV medication administration when no maintenance IV available or when IV medications are not compatible with maintenance fluid. NaCl 0.9% infusion 1-999 mL/hr, intravenous, As needed, Post Medications (Hazardous/Low Fluid Volume), Starting on Tue07/04/23 at 0118, Infuse at the same rate as the medication until tubing cleared of medication, then discard. naloxone injection 0.2 mg (NARCAN) 0.2 mg, intravenous, As needed, reversal, respiratory depression, Starting on Tue07/04/23 at 0911 oxyCODONE IR tablet 10 mg (ROXICODONE) 10 mg, oral, Every 3 hours PRN, severe pain or score 7-10 of 10, Starting on Tue07/06/23 at 0345, Second line therapy. If patient is greater than 7 after 2 hours, call service for new order. Given 07/09/2023 9:44 AM CDT 10 mg Given 07/09/2023 6:37 AM CDT 10 mg Given 07/08/2023 7:41 PM CDT 10 mg oxyCODONE IR tablet 5 mg (ROXICODONE) 5 mg, oral, Every 3 hours PRN, moderate pain or score 4-6 of 10, Starting on Tue07/06/23 at 0345, Second line therapy polyethylene glycol powder packet 1 packet (MIRALAX) 1 packet, oral, Daily, First dose on Tue07/04/23 at 0900, Ordered sequence of administration: polyethylene glycol, then bisacodyl until BM achieved. Avoid mixing with starch-based thickened liquids. Given 07/09/2023 9:40 AM CDT 1 packe t Given 07/04/2023 8:27 AM CDT 1 packet sennosides-docusate sodium 8.6-50 mg per tablet 1 tablet (SENOKOT-S) 1 tablet, oral, 2 times daily, First dose on Tue07/04/23 at 0900, Do not give if patient has diarrhea. Given 07/09/2023 9:40 AM CDT 1 tablet Given 07/08/2023 9:02 PM CDT 1 tablet Given 07/08/2023 8:31 AM CDT 1 tablet Inactive Administered Medications - up to 3 most recent administrations Medication Order MAR Action Action Date Dose Rate Site acetaminophen injection 1,000 mg 1,000 mg, intravenous, at 400 mL/hr, Administer over 15 Minutes, Once as needed, other, If patient has not received in previous 6 hours, Starting on Tue07/04/23 at 1414, For 1 dose, PACU (only), Oral unless RASS less than -1 or nausea/vomiting. Do not use if given in last 6 hours, Restriction Criteria (Pharmacy will review and approve if criteria met): Unable to take or tolerate medications administered via the enteral route or orally (not just NPO) New Bag 07/04/2023 2:18 PM CDT 1,000 mg 400 mL/hr ceFAZolin in dextrose (iso osm) IVPB 2 g (ANCEF) 2 g, intravenous, at 200 mL/hr, Administer over 30 Minutes, Every 8 hours, First dose on Tue07/04/23 at 2000, For 2 doses, Begin 8 hours after previous dose, Drug Monitoring Program: Pharmacist to adjust medication dosing based on indication and drug clearance factors., Indications: Prophylaxis, surgical New Bag 07/05/2023 4:08 AM CDT 2 g 200 mL/hr New Bag 07/04/2023 8:52 PM CDT 2 g 200 mL/hr cyclobenzaprine tablet 5 mg (FLEXERIL) 5 mg, oral, 3 times daily PRN, muscle spasms, Starting on Tue07/05/23 at 2054 Given 07/05/2023 9:23 PM CDT 5 mg fentaNYL injection 25 mcg (SUBLIMAZE) 25 mcg, intravenous, Every 2 min PRN, For pain 4 or greater (maximum 100 mcg). If max dose of Fentanyl is reached and if pain is greater than 4, discontinue Fentanyl: give Hydromorphone, Starting on Tue07/04/23 at 1414, PACU (only) Given 07/04/2023 2:29 PM CDT 25 mcg Given 07/04/2023 2:22 PM CDT 25 mcg Given 07/04/2023 2:19 PM CDT 25 mcg fentaNYL injection 75 mcg (SUBLIMAZE) 75 mcg, intravenous, Every 1 hour PRN, severe pain or score 7-10 of 10, Starting on Tue07/03/23 at 2235 Given 07/03/2023 10:41 PM CDT 75 mcg heparin (porcine) injection 5,000 Units 5,000 Units, subcutaneous, Once, On Tue07/04/23 at 0015, For 1 dose Given 07/04/2023 12:41 AM CDT 5,000 Units Left Upper Arm (Back) HYDROmorphone (PF) injection 0.2 mg (DILAUDID) 0.2 mg, intravenous, Every 2 hour PRN, severe pain or score 7-10 of 10, Starting on Tue07/03/23 at 2347, For 3 doses, May administer if pain is greater than 7 after scheduled and PRN regimen exhausted. Given 07/04/2023 11:14 AM CDT 0.2 mg Given 07/04/2023 7:00 AM CDT 0.2 mg Given 07/04/2023 2:51 AM CDT 0.2 mg HYDROmorphone (PF) injection 0.2 mg (DILAUDID) 0.2 mg, intravenous, Every 5 min PRN, moderate pain or score 4-6 of 10, severe pain or score 7-10 of 10, Starting on Tue07/04/23 at 1414, PACU (only), Up to maximum total dose of 2 mg Given 07/04/2023 3:30 PM CDT 0.2 mg Given 07/04/2023 3:11 PM CDT 0.2 mg Given 07/04/2023 3:01 PM CDT 0.2 mg HYDROmorphone (PF) injection 0.2 mg (DILAUDID) 0.2 mg, intravenous, Every 1 hour PRN, severe pain or score 7-10 of 10, Starting on Tue07/06/23 at 0011, For 3 doses Given 07/06/2023 11:41 AM CDT 0.2 mg Given 07/06/2023 9:07 AM CDT 0.2 mg Given 07/06/2023 1:35 AM CDT 0.2 mg HYDROmorphone (PF) injection 0.2 mg (DILAUDID) 0.2 mg, intravenous, Once as needed, severe pain or score 7-10 of 10, Starting on Tue07/08/23 at 1148, For 1 dose Given 07/08/2023 4:46 PM CDT 0.2 mg HYDROmorphone (PF) injection 1 mg (DILAUDID) 1 mg, intravenous, Once, On Tue07/03/23 at 2252, For 1 dose Given 07/03/2023 10:55 PM CDT 1 mg ketorolac injection 15 mg (TORADOL) 15 mg, intravenous, Once, On Tue07/04/23 at 1530, For 1 dose, PACU (only), Adult IV push rate: Over 15 seconds. Peds IV push rate: Over 1 minute. Doses > 15 mg IV/IM are discouraged due to lack of additional analgesic benefit. Given 07/04/2023 3:06 PM CDT 15 mg oxyCODONE IR tablet 10 mg (ROXICODONE) 10 mg, oral, Every 4 hours PRN, severe pain or score 7-10 of 10, Starting on Tue07/03/23 at 2347, Second line therapy. If patient is greater than 7 after 2 hours, call service for new order. Given 07/05/2023 10:23 PM CDT 10 mg Given 07/05/2023 6:42 PM CDT 10 mg Given 07/05/2023 11:23 AM CDT 10 mg oxyCODONE IR tablet 5 mg (ROXICODONE) 5 mg, oral, Once as needed, For pain 4 or greater, Starting on Tue07/04/23 at 1414, For 1 dose, PACU (only) Given 07/04/2023 2:29 PM CDT 5 mg potassium chloride ER tablet 20 mEq (KLORCON/K-TAB) 20 mEq, oral, Once, On Tue07/05/23 at 0915, For 1 dose, Swallow whole. Do NOT crush, chew, or split tablet. Given 07/05/2023 9:05 AM CDT 20 mEq documented in this encounter Active and Recently Administered Medications Times are shown in CDT. Scheduled Medication Order 07/07/2023 07/08/2023 07/09/2023 acetaminophen tablet 1,000 mg (TYLENOL) 1,000 mg, oral, 4 times daily, First dose on Tue07/04/23 at 0800 1015 (Given - Provider: Vera Stallings R.N.)1314 (Given - Provider: Vera Stallings R.N.)1733 (Given - Provider: Vera Stallings R.N.)2006 (Given - Provider: Jaspal Flores R.N.) 08 (Given - Provider: Leslie Bustos R.N.)1140 (Given - Provider: Leslie Bustos R.N.)1645 (Given - Provider: Leslie Bustos R.N.)2100 (Given - Provider: Aurora ElizondoNPrakash) 0940 (Given - Provider: Grecia Rivera RPrakashN. - Comment: [facility])1200 (Due)1700 (Due)2099 (Due) atorvastatin tablet 20 mg (LIPITOR) 20 mg, oral, Daily at bedtime, First dose on Tue07/04/23 at 2100, atorvastatin 20 mg oral daily was interchanged for pravastatin oral daily 2006 (Given - Provider: Jaspal Flores R.N.) 2100 (Given - Provider: Nicholas Gallegos RPrakashNPrakash) 2099 (Due) buPROPion 12 hr tablet 100 mg (WELLBUTRIN SR) 100 mg, oral, 2 times daily, First dose on Tue07/04/23 at 0900, Swallow whole. Do NOT crush, chew, or split tablet. 1015 (Given - Provider: Vera Stallings R.N.)2006 (Given - Provider: Jaspal Flores R.N.) 08 (Given - Provider: Leslie Bustos RPrakashNPrakash)210 (Given - Provider: Nicholas Gallegos RPrakashN.) 0940 (Given - Provider: Grecia Rivera RPrakashN.)2100 (Due) calcium citrate-vitamin D3 315 mg-5 mcg (200 Unit) per tablet 2 tablet (CITRACAL+D) 2 tablet, oral, 2 times daily, First dose on Tue07/04/23 at 0900 1015 (Given - Provider: Vera Stallings R.N.)2006 (Given - Provider: Jaspal Flores R.N.) 08 (Given - Provider: Leslie Bustos R.NPrakash)2101 (Given - Provider: Nicholas Gallegos R.N.) 09 (Given - Provider: Grecia Rivera R.N.)2099 (Due) enoxaparin injection 30 mg (LOVENOX) 30 mg, subcutaneous, 2 times daily, First dose on Tue07/05/23 at 0900 1015 (Given - Provider: Vera Stallings R.N.)2006 (Given - Provider: Jaspal Flores R.N.) 08 (Given - Provider: Leslie Bustos RPrakashNPrakash)2101 (Given - Provider: Nicholas Gallegos R.N.) 09 (Given - Provider: Grecia Rivera R.N.)2099 (Due) levothyroxine tablet 100 mcg (SYNTHROID, LEVOTHROID) 100 mcg, oral, Daily before breakfast, First dose on Tue07/04/23 at 0700 0632 (Given - Provider: Jaspal Flores R.N.) 0624 (Given - Provider: Jaspal Flores R.N.) 0638 (Given - Provider: Nicholas Gallegos R.N.) loratadine tablet 10 mg (CLARITIN) 10 mg, oral, Daily, First dose on Tue07/09/23 at 0900, loratadine 10 mg oral daily was interchanged for cetirizine 10 mg oral daily 0940 (Given - Provider: Grecia Rivera RBar) polyethylene glycol powder packet 1 packet (MIRALAX) 1 packet, oral, Daily, First dose on Tue07/04/23 at 0900, Ordered sequence of administration: polyethylene glycol, then bisacodyl until BM achieved. Avoid mixing with starch-based thickened liquids. 1031 (Not Given - Provider: Vera Stallings R.N. - Reason: Patient/family refused) 08 (Not Given - Provider: Leslie Bustos RBar - Reason: Patient/family refused) 0940 (Given - Provider: Grecia Rivera R.N.) sennosides-docusate sodium 8.6-50 mg per tablet 1 tablet (SENOKOT-S) 1 tablet, oral, 2 times daily, First dose on Tue07/04/23 at 0900, Do not give if patient has diarrhea. 1015 (Given - Provider: Vera Stallings R.N.)2006 (Given - Provider: Jaspal Flores R.N.) 0831 (Given - Provider: Leslie Bustos RPrakashNPrakash)210 (Given - Provider: Nicholas Gallegos RPrakashNPrakash) 0940 (Given - Provider: Grecia Rivera RPrakashNPrakash)2100 (Due) PRN Medication Order 07/07/2023 07/08/2023 07/09/2023 bisacodyL suppository 10 mg (DULCOLAX) 10 mg, rectal, Daily PRN, constipation, Starting on Tue07/03/23 at 2347, Ordered sequence of administration: polyethylene glycol, then bisacodyl until BM achieved. calcium carbonate chewable tablet 400 mg of calcium (TUMS) 400 mg of calcium, oral, Every 2 hour PRN, indigestion, Starting on Tue07/03/23 at 2347, Doses listed are in mg of elemental calcium. Take with food. 500 mg calcium carbonate contains 200 mg of elemental calcium. D5W infusion 1-999 mL/hr, intravenous, As needed, Medications Incompatible with 0.9% NaCL, Starting on Tue07/04/23 at 0118, Infuse at the same rate as the piggyback until tubing clears or up to a volume of 20 mL pre and post infusion for medications incompatible with 0.9% NaCL. Use 50 mL bag then discard. diazePAM tablet 5 mg (VALIUM) 5 mg, oral, 3 times daily PRN, muscle spasms, Starting on Tue07/05/23 at 2345 0258 (Given - Provider: Jaspal Flores R.N.)2131 (Given - Provider: Jaspal Flores R.N.) 0506 (Given - Provider: Jaspal Flores R.N.) EPINEPHrine 0.3 mg/0.3 mL injection 0.3 mg 0.3 mg, intramuscular, As needed, anaphylaxis, Starting on Tue07/03/23 at 2347 HYDROmorphone (PF) injection 0.2 mg (DILAUDID) (COMPLETED) 0.2 mg, intravenous, Once as needed, severe pain or score 7-10 of 10, Starting on Tue07/08/23 at 1148, For 1 dose 1215 (Canceled Entry - Provider: Leslie Bustos RPrakashNPrakash)1646 (Given - Provider: Leslie Bustos RPrakashNPrakash) NaCl 0.9% infusion 1-999 mL/hr, intravenous, As needed, Between Consecutive Piggyback Medications, Starting on Tue07/04/23 at 0118, Infuse at the same rate as the piggyback until tubing clears or up to a volume of 20 mL. Select for IV medication administration when no maintenance IV available or when IV medications are not compatible with maintenance fluid. NaCl 0.9% infusion 1-999 mL/hr, intravenous, As needed, Post Medications (Hazardous/Low Fluid Volume), Starting on Tue07/04/23 at 0118, Infuse at the same rate as the medication until tubing cleared of medication, then discard. naloxone injection 0.2 mg (NARCAN) 0.2 mg, intravenous, As needed, reversal, respiratory depression, Starting on Tue07/04/23 at 0911 ondansetron (PF) injection 4 mg (ZOFRAN) 4 mg, intravenous, Every 6 hours PRN, nausea, vomiting, Starting on Tue07/03/23 at 2347 oxyCODONE IR tablet 10 mg (ROXICODONE)(Linked Group 1) 10 mg, oral, Every 3 hours PRN, severe pain or score 7-10 of 10, Starting on Tue07/06/23 at 0345, Second line therapy. If patient is greater than 7 after 2 hours, call service for new order. 0256 (Given - Provider: Jaspal Flores R.N.)0631 (Given - Provider: Jaspal Flores R.N.)1015 (Given - Provider: Vera Stallings RPrakashNPrakash)1314 (Given - Provider: Vera Stallings RPrakashN.)1733 (Given - Provider: Vera Stallings R.N.)2131 (Given - Provider: Jaspal Flores R.N.) 0143 (Given - Provider: Jaspal Flores R.N.)0506 (Given - Provider: Jaspal Flores R.N.)0939 (Given - Provider: Maria C Mora R.N.)194 (Given - Provider: Nicholas Gallegos R.N.) 0637 (Given - Provider: Nicholas Gallegos R.N.)0944 (Given - Provider: Grecia Rivera RPrakashN.) oxyCODONE IR tablet 5 mg (ROXICODONE)(Linked Group 1) 5 mg, oral, Every 3 hours PRN, moderate pain or score 4-6 of 10, Starting on Tue07/06/23 at 0345, Second line therapy 0256 (See Alternative - Provider: Jaspal Flores R.N.)0631 (See Alternative - Provider: Jaspal Flores R.N.)1015 (See Alternative - Provider: Vera Stallings R.N.)1314 (See Alternative - Provider: Vera Stallings R.N.)1733 (See Alternative - Provider: Vera Stallings R.N.)2131 (See Alternative - Provider: Jaspal Flores R.N.) 0143 (See Alternative - Provider: Jaspal Flores R.N.)0506 (See Alternative - Provider: Jaspal Flores R.N.)0939 (See Alternative - Provider: Maria C Mora R.N.)194 (See Alternative - Provider: Nicholas Gallegos R.N.) 0637 (See Alternative - Provider: Nicholas Gallegos R.N.)0944 (See Alternative - Provider: Grecia Rivera RPrakashNPrakash) Linked Groups Order Group 1: oxyCODONE IR tablet 5 mg (ROXICODONE)Jump to med 5 mg, oral, Every 3 hours PRN, moderate pain or score 4-6 of 10, Starting on Tue07/06/23 at 0345, Second line therapy Or oxyCODONE IR tablet 10 mg (ROXICODONE)Jump to med 10 mg, oral, Every 3 hours PRN, severe pain or score 7-10 of 10, Starting on Tue07/06/23 at 0345, Second line therapy. If patient is greater than 7 after 2 hours, call service for new order. documented in this encounter Additional Health Concerns Assessment Noted Time PHQ-9 Depression Total Score: 9 06/16/19 24 7:14 AM CDT documented as of this encounter Care Teams Pharmacy Clerk Relationship Specialty Start Date End Date Lilli Chacon M.D. [address] [place] [id number] PCP - General Family Medicine 05/11/21 documented as of this encounter
--- OUTSIDE RECORDS SUMMARY | 2023-07-09 12:35 | XMS_ITS | Encounter Summary ---
Author Organization [facility] Address [address] [place] [address] Care Team Providers Care Lens Hardener Name Role Phone Lilli Chacon M.D. Primary Care Provider [phone] Reason for Visit * Reason Comments Leg Pain * Auth/Cert (Routine) Specialty Diagnoses / Procedures Referred By Ritaac t Referred To Contact Diagnoses Fracture Tibial Plateau Closed Initial Left Tib Fib Fracture Procedures EMERGENCY Otis Mak M.D. [address] [place] [phone] Referral ID Status Reason Start Date Expiration Date Visits Re quested Visits Authorized [id number] 1 1 Encounter Details Date Type Department Care Team (Late st Contact Info) Description 07/04/2023 10:37 AM CDT - 07/04/2023 12:57 PM CDT Surgery RST ROMB MAIN OR [address] [place] [phone] Jaxson Rodriguez M.D. [address] [place] [phone] APPLICATION EXTERNAL FIXATION LOWER EXTREMITY, KNEE SPANNING Social History Tobacco Use Types Packs/Day Years Used Date Smoking Tobacco: Former Cigarettes 1 2002 Smokeless Tobacco: Never Alcohol Use Standard Drinks/Week Comments Yes 2 (1 standard drink = 0.6 oz pur e alcohol) [facility] Utilities Answer Date Recorded In the past 12 months has [employer], gas, oil, or water company threatened to [...] week 09/13/2021 How often do you attend [facility] or islam services? 1 to 4 times per year 09/13/2021 Do you belong to any clubs o r organizations such as christian groups, unions, fraternal or athletic groups, or [...] Answer Date Recorded PHQ-2 Score 4 06/16/2023 [facility] - [...] your living situation today? I have a [facility] place to live 07/04/2023 Education Answer Date Recorded What is the highest level of school you have completed or the highest degree you have received? Doctorate 09/05/2018 Sex and Gender Information Value Date Recorded Sex Assigned at Female 12/19/2016 7:29 PM SUPPLY CHAIN PROCUREMENT MANAGER Gender Identity Female 12/19/2016 7:29 PM SUPPLY CHAIN PROCUREMENT MANAGER Sexual Orientation Lesbian or [place] 03/12/2020 12 :23 PM SUPPLY CHAIN PROCUREMENT MANAGER documented as of this encounter Last Filed Vital Signs Vital Sign Reading Time Taken Comments Blood Pressure 153/76 07/04/2023 8:00 AM CDT Pulse 71 07/04/2023 10:00 AM CDT Temperature 37 ??C (98.6 ??F) 07/04/2023 8:00 AM CDT Respiratory Rate 15 07/04/2023 10:00 AM CDT Oxygen Saturation 94% 07/04/2023 10:00 AM CDT Inhaled Oxygen Concentration - - [...] From 6am-6pm Tuesday-Tuesday, please contact OTS-4 at [phone] with any questions regarding this patient. If overnight [phone] or any time on weekends, please contact the Orthopedic Surgery house resident operations developer at [phone]. * Hugo Baires P.T.A. - 07/08/2023 3:19 PM CDT 07/08/23 [...] about patient's nutritional care please contact pager [phone] on weekdays or [phone] on weekends/holidays. * Charisse Rowley L.G.SLuzmaria., M.S.W. - 07/08/2023 11:22 AM CDT SUBJECTIVE Social Work continues to follow to assist with discharge needs. Referrals Sent; (1) [facility] - declined 07/06; facility full (2) [facility] - declined; can reconsider after external fixation is removed (3) [facility] - declined; facility full (4) [facility] - pending; left a voicemail with Danna/Admissions 07/06 (5) [facility] - declined; payor source (rounding physicians require Medicare Part B forbilling purposes) (6) [facility] - declined; can reconsider after externalfixation is removed. New Referrals Sent; (7) [facility] [place] - pending (8) [facility] [place] - pending (9) [facility] [place] [facility] Social Work met with Patient and her spouse, Wanda. Social Work shared updates regarding referrals including the barriers of bed availability and Patient's planned readmission. Patient shares the impression from her medical team that she will likely remain in the hospital through her surgery due to this issue. She shares understanding and is appreciative of the care she has received at [facility]. Patient welcomed additional referrals closer to home as needed, including to the [facility] sites. Patient, Social Work, and Wanda also discussed the role of Home Health - for after short-term rehabilitationplacement or another option at hospital discharge should she progress enough to feel comfortable inreturning home. Patient is borrowing a walker from someone she knows and is interested in information for renting a wheelchair. OBJECTIVE Patient is currently admitted to [facility]. ASSESSMENT / PLAN ASSESSMENT Patient and her spouse, Wanda demonstrate insight into Patient's needs and are engaged in planning. Barriers - Planned Readmission for External Fixation Removal PLAN Patient anticipates discharge to a penitentiary facility or [facility] - referrals pending Social Work will continue to follow to assist with discharge needs and/or to provide supportive visits. Sadaf Ramírez, M.S.W. 07/08/23 * Adeline Chino - 07/08/2023 10:59 AM CDT Occupational Therapy Acute Hospital Inpatient Treatment SUBJECTIVE [facility]'s Name: [facility] Referring/Attending Provider: Jaxson Rodriguez M.D. Reason for Referral: Occupational Therapy Evaluation and Treatment History of Present Illness: Shreya Douglas is a 72 y.o. female who was admitted to [facility] in [place] on 07/03/2023 for Fracture Tibial Plateau Closed [...] vital changes during therapy session. Outcome Measures: [facility] Inpatient Short Form: Putting on and taking [...] at or below 17 Clinicians answer the [facility] Inpatient Short Form based on observed patient activity and/or clinical judgement (ie. patient can be scored without physically performing each activity) Cognition: No observable concerns with cognition at this time Therapeutic Interventions: BED MOBILITY: SUPINE to SIT - Assist Level: Stand By Assist - Device: use of bed rail, head of bed elevated, trapeze, patient utilized gait belt as a leg display artist - Therapist Delivery: assessed - Assist/Cues: stand [...] with medication set up/administration, Assistance with financial analysis manager, Assistance with transportation, Assistance with showering/bathing, Assistance [...] From 6am-6pm Tuesday-Tuesday, please contact OTS-4 at [phone] with any questions regarding this patient. If overnight [phone] or any time on weekends, please contact the Orthopedic Surgery house resident operations developer at [phone]. * Adeline Chino - 07/07/2023 3:33 PM CDT Occupational Therapy [facility] Inpatient Treatment SUBJECTIVE Patient's Name: Shreya Douglas Referring/Attending Provider: Jaxson Rodriguez M.D. Reason for Referral: Occupational Therapy Evaluation and Treatment History of Present Illness: Shreya Douglas is a 72 y.o. female who was admitted to [facility] in [place] on 07/03/2023 for Fracture Tibial Plateau Closed [...] vital changes during therapy session. Outcome Measures: [facility] Inpatient Short Form: Putting on and taking [...] at or below 17 Clinicians answer the [facility] Inpatient Short Form based on observed patient [...] patient utilized gait belt as a leg display artist - Therapist Delivery: assessed, educated - Assist/Cues: [...] with medication set up/administration, Assistance with financial analysis manager, Assistance with transportation, Assistance with showering/bathing, Assistance [...] min Total Treatment Time (min): 24 min ALLISON Michelle Associated attestation - Cassi Sanders O.T., O.T.D. - 07/07/2023 4:31 PM CDT This therapist has reviewed all documentation and supervised today???s session. The therapist agrees with the plan developed in collaboration with the patient. * Charisse Rowley L.G.S.W., M.S.W. - 07/07/2023 11:28 AM CDT SUBJECTIVE Social Work continues to follow to assist with discharge needs. Referrals Sent; (1) [facility] - declined 07/06; facility full (2) [facility] - declined; can reconsider after external fixation is removed (3) [facility] - pending; left a voicemail with Natasha/Admissions 07/06 (4) [facility] - pending; left a voicemail with Danna/Admissions 07/06 (5) [facility] - declined; payor source (rounding physicians require Medicare Part B forbilling purposes) (6) [facility] - declined; can reconsider after externalfixation is removed. OBJECTIVE Patient is currently admitted to [facility]. ASSESSMENT / PLAN ASSESSMENT Social Work attempted to meet with Patient, but Patient was occupied in other care. Patient was notassessed at this time. Barriers - Planned Readmission for External Fixation Removal PLAN Patient anticipates discharge to a penitentiary facility - referrals pending Social Work will [...] 72 y.o. female who was admitted to [facility] in [place] on 07/03/2023 for Fracture Tibial Plateau Closed [...] vital changes during therapy session. Outcome Measures: [facility] Inpatient Short Form: -[facility] Basic Mobility (V.2) How much help from [...] Climbing 3-5 steps with a railing?: Total [facility] Basic Mobility (V.2) Raw Score: 11 -[facility] Basic Mobility (V.2) Standardized Score: 30.25 Interpretation: Based on scoring guidelines using the raw score value: Those going to home had an average score at or above 18 Those going to facility had an average score at or below 17 Clinicians answer the [facility] Inpatient Short Form based on observed patient [...] PT Plan Comments: Train bed mobility; progress ldd-ox-khbrp transfers; progress ambulation with chair follow Functional Goals: PT Inpatient Goals PT Goal #1: Patient will perform bed mobility with with minimal assistance of 1 person without hospital bed features in order to improve functional mobility PT Goal #1 Status: Advanced PT Goal #2: Patient will perform jrr-ad-adwjt transfers with least restrictive assistive device andminimal [...] min Total Treatment Time (min): 29 min ([id number]) Catia Alejandro P.T., D.P.T. * Gabriel Hooks [...] From 6am-6pm Tuesday-Tuesday, please contact OTS-4 at [phone] with any questions regarding this patient. If overnight [phone] or any time on weekends, please contact the Orthopedic Surgery house resident operations developer at [phone]. * Samantha Garcia V. P.T. - 07/06/2023 4:03 PM CDT Physical Therapy Inpatient Treatment SUBJECTIVE Patient's Name: Shreya Douglas Referring/Attending Provider: Jaxson Rodriguez M.D. Reason for Referral: Physical Therapy Evaluate and Treat History of Present Illness: Shreya Douglas is a 72 y.o. female who was admitted to [facility] in [place] on 07/03/2023 for Fracture Tibial Plateau Closed [...] throughout session; within normal ranges. Outcome Measures: AM-PAC Inpatient Short Form: AM-PAC Basic Mobility (V.2) [...] at or below 17 Clinicians answer the [facility] Inpatient Short Form based on observed patient [...] - 07/06/2023 10:18 AM CDT Occupational Therapy [facility] Inpatient Treatment SUBJECTIVE Patient's Name: Shreya Douglas Referring/Attending Provider: Jaxson Rodriguez M.D. Reason for Referral: Occupational Therapy Evaluation and Treatment History of Present Illness: Shreya Douglas is a 72 y.o. female who was admitted to [facility] in [place] on 07/03/2023 for Fracture Tibial Plateau Closed [...] vital changes during therapy session. Outcome Measures: [facility] Inpatient Short Form: Putting on and taking [...] at or below 17 Clinicians answer the [facility] Inpatient Short Form based on observed patient [...] with medication set up/administration, Assistance with financial analysis manager, Assistance with transportation, Assistance with showering/bathing, Assistance [...] Michelle Associated attestation - Rich Bills O.T., O.TNancy - 07/06/2023 3:41 PM CDT I have [...] a child From 6am-6pm Tuesday-Tuesday, please contact [facility] at [phone] with any questions regarding this patient. If overnight [phone] or any time on weekends, please contact the Orthopedic Surgery house resident operations developer at [phone]. * Christianne Reno DHallie - 07/06/2023 2:50 AM CDT [facility] I came to re-assess the patient. [...] close eye on her throughout the morning. DO Miriam Acevedo, pager [phone] * Christianne Reno D.O. - 07/06/2023 1:45 AM CDT Miriam Lopez Miscellaneous note I received a page from [...] on a blue foam ramp.I contacted the OTS chief given my concern for compartment syndrome and we gave the patient 0.2 mg IV dilaudid. When Dr. Sommer arrived, she was much more comfortable after receiving dilaudid. We alsoremoved a blanket that was present behind the popliteal fossa. Plan will be to check the patient again in one hour to evaluate her pain and perform another clinical exam. DO Miriam Acevedo [place], pager [phone] * Charisse Rowley L.G.S.W., M.S.W. - 07/05/2023 5:23 PM CDT SUBJECTIVE Social Work attempted to meet with Patient x2 earlier in the day; Patient engaged in other care. Social Work unable to return again late in the afternoon. OBJECTIVE Patient is currently admitted to [facility]. ASSESSMENT / PLAN ASSESSMENT Patient was not assessed at this time. PLAN Social Work to follow up tomorrow to completed assessment. Sadaf Ramírez M.S.W. 07/05/23 * Quentin Amezquita M.D. - 07/05/2023 12:27 PM CDT [facility] Orthopedic Trauma Surgery [address] [place] [address] Supervisory Progress Note I saw and evaluated [...] team's plan of care. Counseling was provided tuqa-[id number] at bedside regarding the plan of care [...] PLAN Ms. Romero Douglas is hospitalized on [facility] Orthopedic Trauma Surgery [address] [place] [address] for evaluation and management of Fracture Tibial Plateau Closed Initial Left and is status post Surgery Information This Encounter Past Procedures (07/05/2022 to Today) Date Procedures Providers Loc / Dept 07/04/2023 APPLICATION EXTERNAL FIXATION LOWER EXTREMITY, KNEE SPANNING Jaxson Rodriguez M.D.Fareed Villagran M.D.Mahamed Daniel M.D.Madina Hansen M.D. [facility] ROMB OR Medicine Consult service was consulted [...] Consults will sign off. Please page the [facility] Medicine Consult Team 1 pager [phone] with any questions or concerns. The above plan of care was discussed with Dr. Amezqutia. I personally spent a total of 35 [...] a child From 6am-6pm Tuesday-Tuesday, please contact [facility] at [phone] with any questions regarding this patient. If overnight [phone] or any time on weekends, please contact the Orthopedic Surgery house resident operations developer at [phone]. * Toney Anderson M.D. - 07/04/2023 8:25 [...] and concerns were addressed. * Ailin Chaparro, PharmPrakashDPrakash, R.Ph. - 07/04/2023 9:03 AM CDT Images [...] definitive fixation Med profile reviewed Ailin Chaparro Pharm.D., R.Ph. Admission Medication History Note Adherence issues: No concerns Medication list source: Patient Prior to Admission Medications Med List Status: Pharmacy Complete Set By: Ailin Chaparro Pharm.D., R.Ph. at 07/04/2023 9:03 AM Taking? Last [...] in this encounter Consult Notes * Charisse Rowley L.G.S.W., M.S.W. - 07/06/2023 10:42 AM CDTAssociated Order(s): IP CONSULT TO CARE MANAGEMENT Psychosocial Assessment SUBJECTIVE DEMOGRAPHIC INFORMATION Referral Source: Service/Provider Referral Reason: Psychosocial Assessment, Coping/Adjustment/Support, and Discharge Planning Person(s) present during interview: Patient Previous Psychosocial Assessment : No Primary care clinic and provider: Lilli Chacon M.D. (Currently In [place]; moving to [place] per Patient) They were advised of the [...] Wanda. History: None Reported Employment: Retired from [employer] in January; Still Professionally Engaged [employer] Utilities: N/A [facility] Food Insecurity: N/A [place] Housing: N/A [facility] Intimate Partner Violence: N/A Psychosocial Risk Factors [...] Wanda and their friends. FINANCES/INSURANCE Primary insurance: [employer] OPEN ACCESS Secondary insurance: N/A Financial concerns: No ADVANCE DIRECTIVES Advance Directive: Patient has advance directive, copy not in chart OBJECTIVE Suicide Risk and Safety Risk Assessment: Suicidal: No Homicidal: No Current Stressors Current Hospitalization and Medical Status Coping Skills/Strengths Prior Level of [place] Social Support Interests - Retired (Remains Professionally [...] to discharge, Patient anticipates discharging to a penitentiary facility. She anticipates follow-up for removal of her external fixation. A list of penitentiary facility options (that they geographically reside or requested) has been provided to and reviewed with patient. Disclaimers: Financial disclosure provided informing patient of our ownership and financial relationship of the [facility] beds, home health, and hospice agencies. Reviewed [facility] insurance coverage and provided in-network options. Referrals Sent; (1) [facility] - pending (2) [facility] - pending (3) [facility] - pending (4) [facility] - pending (5) [facility] - pending (6) [facility] pending Patient anticipates possibly having her spouse [...] approach. PLAN Patient anticipates discharging to a penitentiary facility - referrals pending. Social Work will continue to follow to assist with discharge needs and/or to provide supportive visits. Anticipated barriers to the transition of care/plan: None Sadaf Ramírez, M.S.W. 07/06/2023 * Adeline Chino - 07/05/2023 2:24 PM CDT Occupational Therapy Acute Hospital Inpatient Evaluation/Treatment SUBJECTIVE Patient's Name: Shreya Douglas Referring/Attending Provider: Jaxson Rodriguez M.D. Reason for Referral: Occupational Therapy Evaluation and Treatment PERTINENT MEDICAL / SURGICAL HISTORY: Shreya Haleysandormart has a past medical history of Anxiety [...] 72 y.o. 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 Inpatient Short Form: Putting on and taking [...] at or below 17 Clinicians answer the [facility] Inpatient Short Form based on observed patient activity and/or clinical judgment (ie. patient can be scored without physically performing each activity) [facility] post-concussion symptoms questionnaire: A quick quantitative measure [...] with medication set up/administration, Assistance with financial analysis manager, Assistance with transportation, Assistance with showering/bathing, Assistance [...] Michelle Associated attestation - Cassi Sanders O.T., O.TNancy - 07/05/2023 3:27 PM CDT This therapist has reviewed all documentation and supervised today???s session. The therapist agrees with the plan developed in collaboration with the patient. * Samantha Garcia V. PVianca - 07/05/2023 1:19 PM CDT Physical Therapy [...] 72 y.o. female who was admitted to [facility] in [place] on 07/03/2023 for Fracture Tibial Plateau Closed [...] is brining a front wheeled walker, a curator of manuscripts , shower chair. Patient is planning to [...] than 10 minutes of activity Outcome Measures: [facility] Inpatient Short Form: -[facility] Basic Mobility (V.2) How much help from [...] Climbing 3-5 steps with a railing?: Total [facility] Basic Mobility (V.2) Raw Score: 7 [facility] Basic Mobility (V.2) Standardized Score: 19.39 Interpretation: Based on scoring guidelines using the raw score value: Those going to home had an average score at or above 18 Those going to facility had an average score at or below 17 Clinicians answer the [facility] Inpatient Short Form based on observed patient [...] 1. PT Goal #3 Status: Ongoing Shreya Sanches Romero Stella has Good rehab potential to meet the [...] risk RCRI: 3.9% Carey Score (Risk of [place] or arrest within 30 days): 0.2% DASI: [...] will continue to follow. Please page the [facility] Medicine Consult Team 1 pager [phone] with any questions or concerns. I personally [...] hypothyroidism, and hypercholesterolemia who presented to the [facility] ED after sustaining a closed left tibial plateau fracture following a ground level fall this afternoon while working in her garden as an ED to ED transfer from [place]. They denied any head injury or loss [...] 3 PM. Medical Comorbidities: Denies any diabetes, [place], stroke, DVT, COPD, history of deep joint [...] to a blood transfusion if necessary. The [facility] multidisciplinary team approach wasdiscussed. Activity: NWB LLE [...] From 6am-6pm Tuesday-Tuesday, please contact OTS-3 at [phone] with any questions regarding this patient. If overnight [phone] or any time on weekends, please contact the Orthopedic Surgery house resident operations developer at [phone]. Ayaka Trivedi MD Orthopedic Surgery Resident 07/03/23 [...] Chair alarm. WAR. Q2H repositioning. CWMS: PP+2. BAIL BONDING AGENT<2secs. + wiggle toes Incision: Ext fix 3 [...] pulmonary hygiene with incentive spirometer. Discharge Plan: [facility] when medically ready Any care plans not addressed are progressing appropriately * Jaspal Flores R.N. - 07/08/2023 3:35 AM CDT Shift Goals: [...] addressed are progressing appropriately * Jaspal Flores R.N. - 07/07/2023 6:00 AM CDT Shift [...] Chair alarm. WAR. Q2H repositioning. CWMS: PP+2. BAIL BONDING AGENT<2secs. + wiggle toes Incision:ext fix 4 pins [...] addressed are progressing appropriately. * Jane Nichole RPrakashNPrakash - 07/04/2023 7:00 AM CDT End of shift Pt arrived to the unit around 0000. Pt A&O x 3, call light appropriate. Pt remained in bed overnight. Pt vitals and assessment as charted. Pt reports adequate pain management, see MAR. Immobilizer remains in place on LLE. NPO [...] Diagnosis Fracture Tibial Plateau Closed Initial Left Mobile Tester A machinist first class actively participated and was necessary for one [...] including history, physical exam, orders, and plan. Michelleee with the note of the resident. I [...] THIS VISIT Trauma. Final Diagnoses: as of 07/03/232237 Fracture Tibial Plateau Closed Initial Left The following tests were considered but ultimately not performed: CT chest. Escalation of care, including admission/observation, considered: Admission for management of life threatening condition. . My CT Scan interpretation is documented in ED Course. I discussed the management of the patient with: Admitting Provider and Orthopedic Surgeon. Otis Mak M.D. 07/03/232222 Otis Mak M.D. 07/07/23 1355 * Meka Bowie R.N. - 07/03/2023 10:17 PM CDT Pt arrives via EMS from [place]. Was hanging meyers at home, stepped backwards off 3 ft step ladder and missed and fell. Denies hitting head. Known L side tib fib fx. Pt denies numbness, tinglingin LLE. Received 100mcg Fent and 1mg Ativan in route. Meka Bowie RPrakashN. 07/03/23 2221 documented in this encounter Plan of Treatment Upcoming Encounters Date Type Department Care Team (Latest Contact Info) Description 07/12/2023 7:50 AM CDT Hospital Encounter Post Anesthesia Care Unit in [place], [place] [address] [place] [phone] Corrina Zuniga M.D. [address] [place] [phone] 07/12/2023 7:50 AM CDT - 07/12/2023 11:42 AM CDT Surgery RST ROMB MAIN OR [address] [place] [phone] Corrina Zuniga M.D. [address] [place] [phone] OPEN REDUCTION INTERNAL FIXATION TIBIAL PLATEAU - LEFT, proceed as indicated 08/25/2023 10:00 AM CDT Appointment Department of Radiology in [place], [place] [address] [phone] Lilli Chacon M.D. [address] [place] [phone] 12/19/2023 9:10 AM SUPPLY CHAIN PROCUREMENT MANAGER Appointment Department of Laboratory Medicine in [address] [phone] Lilli Chacon M.D. [address] [place] [phone] Scheduled Orders Name Type Priority Associated Diagnoses Order Schedule Incentive Spirometry - RT/RN Respiratory Care Routine [id number] (o emily [id number]) until discontinued starting 07/04/2023 Scheduled Procedures Name [...] CDT Gabriel Hooks M.D. LAB BLOOD ADD-ON [facility] [place] [address] [place] [address], [facility] [address] [place] [address] * (ABNORMAL) CBC without Differential (07/08/2023 6:09 [...] CDT Gabriel Hooks M.D. LAB BLOOD ADD-ON [address] [address], [address] [address] * (ABNORMAL) Basic Metabolic Panel (07/05/2023 6:40 [...] CDT Cresencio Reno M.D. LAB BLOOD ADD-ON [address] [address], [facility] [address] [address] * (ABNORMAL) CBC with Differential, Blood (07/05/2023 [...] CDT Cresencio Reno M.D. LAB BLOOD ADD-ON [facility] [place] [address] [place] [address], [facility] DTL [facility] [address] [place] [address] DHPM [facility] [address] [place] [address] * CT Knee Left without IV Contrast [...] Soft tissue swelling and edema. Phleboliths. Joaquin ÁLVAREZ DIAGNOSTIC IMAG ING PROCEDURES * DX Chest [...] lobe. Chest otherwise negative. Otis Mak M.D. [facility] DIAGNOSTIC IMAGI NG PROCEDURES * DX Fingers [...] M.D. IMG DIAGNOSTIC IMAGI NG PROCEDURES * Type and Screen (with Reflex Antibody ID) (07/03/2023 10:53 PM CDT) ABORh O Pos Not applicable 07/03/2023 11:19 PM CDT STRM Antibody Screen Negative Negative 07/03/2023 11:34 PM CDT STRM Type & Screen Expiration 07/06/2023 23:59 07/03/2023 11:19 PM CDT STRM Testing Location [place] DEFAULT 07/03/2023 11:00 PM CDT STRM Blood (Blood, Venous) 07/03/2023 10:53 PM CDT 07/03/2023 11:00 PM CDT Otis Mak M.D. LAB BLOOD BANK TEST ORDERABLES [facility] [place] [address] [place] [address], [facility] STRM [facility] [address] [place] [address] * Basic Metabolic Panel (07/03/2023 10:53 PM [...] CDT Otis Mak M.D. LAB BLOOD ADD-ON [facility] [place] [address] [place] [address], [facility] [address] [place] [address] * Prothrombin Time (PT) (07/03/2023 10:53 PM [...] CDT Otis Mak M.D. LAB BLOOD ADD-ON [facility] [address] [place] [address], [facility] [address] [place] [address] * (ABNORMAL) CBC with Differential, Blood (07/03/2023 10:53 PM CDT) Hemoglobin 13.0 11.6 - 15.0 g/dL 07/03/2023 11:01 PM CDT STMA Hematocrit 39.2 35.5 - 44.9 % 07/03/2023 [...] M.D. LAB BLOOD ADD-ON Performing Organization Address [facility] Co de Phone Number [facility] [place] [address] [place] [address], [facility] STMA [facility] [address] [place] [address] DHPM [facility] [address] [place] [address] * ECG 12 Lead (07/03/2023 10:32 PM CDT) Ventricular Rate ECG/Min 77 BPM MUSE [place] Interval 146 ms MUSE QRSD Interval 76 ms MUSE QT Interval 400 ms MUSE QTC Interval 452 ms MUSE P [place] 50 degrees MUSE R [place] 16 degrees MUSE T Wave [place] 44 degrees MUSE 07/03/2023 10:3 2 PM [...] Mak M.D. ECG ORDERABLES Performing Organization Address City/[facility]/ZIP Co de Phone Number MUSE NA documented in this encounter Visit Diagnoses Diagnosis Fracture Tibial Plateau Closed Initial Left- Primary Fracture Tibial Plateau Closed Initial Left Decline Functional Status [R53.81] Difficulty Walking Orthopedic Cause [R26.2] Anxiety Generalized Disorder Depression Major Hypercholesterolemia Hypothyroidism Obesity Body Mass Index 30-39.9 Adult Regurgitation Mitral Fracture Tibial Plateau Closed Initial Left documented in this encounter Admitting Diagnoses Diagnosis [...] Given 07/08/2023 8:31 AM CDT 1 tablet documented in this encounter Active and Recently Administered Medications Times are shown in CDT. Scheduled Medication Order 07/07/2023 07/08/2023 07/09/2023 acetaminophen tablet 1,000 mg (TYLENOL) 1,000 mg, oral, 4 times daily, First dose on Tue07/04/23 at 0800 1015 (Given - Provider: Vera Stallings RPrakashN.)1314 (Given - Provider: Vera Stallings R.N.)1733 (Given - Provider: Vera Stallings R.N.)2006 (Given - Provider: Jaspal Flores R.N.) 0831 (Given - Provider: Leslie Bustos RPrakashN.)1140 (Given - Provider: Leslie Bustos R.N.)1645 (Given - Provider: Leslie Bustos R.N.)2100 (Given - Provider: Nicholas Gallegos R.N.) 0940 (Given - Provider: Grecia Rivera R.N. - Comment: [facility])1200 (Due)1700 (Due)2100 (Due) atorvastatin tablet 20 mg (LIPITOR) 20 mg, oral, Daily at bedtime, First dose on Tue07/04/23 at 2100, atorvastatin 20 mg oral daily was interchanged for pravastatin oral daily 2006 (Given - Provider: Jaspal Flores R.N.) 2100 (Given - Provider: Nicholas Gallegos R.N.) 2099 (Due) buPROPion 12 hr tablet 100 mg (WELLBUTRIN SR) 100 mg, oral, 2 times daily, First dose on Tue07/04/23 at 0900, Swallow whole. Do NOT crush, chew, or split tablet. 1015 (Given - Provider: Vera Stallings R.N.)2006 (Given - Provider: Jaspal Flores R.N.) 0831 (Given - Provider: Leslie Bustos RPrakashNPrakash)2100 (Given - Provider: Nicholas Gallegos R.N.) 0940 (Given - Provider: Grecia Rivera RPrakashNPrakash)2099 (Due) calcium citrate-vitamin D3 315 mg-5 mcg (200 Unit) per tablet 2 tablet (CITRACAL+D) 2 tablet, oral, 2 times daily, First dose on Tue07/04/23 at 0900 1015 (Given - Provider: Vera Stallings R.N.)2006 (Given - Provider: Jaspal Flores R.N.) 0831 (Given - Provider: Leslie Bustos RPrakashNPrakash)2101 (Given - Provider: Nicholas Gallegos R.N.) 0940 (Given - Provider: Grecia Rivera R.NPrakash)2099 (Due) enoxaparin injection 30 mg (LOVENOX) 30 mg, subcutaneous, 2 times daily, First dose on Tue07/05/23 at 0900 1015 (Given - Provider: Vera Stallings RBar)2006 (Given - Provider: Jaspal Flores R.N.) 08 (Given - Provider: Leslie Bustos RPrakashNPrakash)2101 (Given - Provider: Aurora ElizondoNPrakash) 09 (Given - Provider: Grecia Rivera R.N.)2099 [...] interchanged for cetirizine 10 mg oral daily 939 (Given - Provider: Grecia Rivera RPrakashNPrakash) polyethylene glycol powder packet 1 packet (MIRALAX) 1 packet, oral, Daily, First dose on Tue07/04/23 at 0900, Ordered sequence of administration: polyethylene glycol, then bisacodyl until BM achieved. Avoid mixing with starch-based thickened liquids. 1031 (Not Given - Provider: Vera Stallings R.N. - Reason: Patient/family refused) 0833 (Not Given - Provider: Leslie Bustos RPrakashNPrakash - Reason: Patient/family refused) 0940 (Given - Provider: Grecia Rivera RPrakashNPrakash) sennosides-docusate sodium 8.6-50 mg per tablet 1 tablet (SENOKOT-S) 1 tablet, oral, 2 times daily, First dose on Tue07/04/23 at 0900, Do not give if patient has diarrhea. 1015 (Given - Provider: Farhana IgnacioBar)2006 (Given - Provider: Jaspal Flores R.N.) 0831 (Given - Provider: Leslie Bustos RPrakashNPrakash)2101 (Given - Provider: Nicholas Gallegos R.N.) 0940 (Given - Provider: Grecia Rivera RPrakashNPrakash)2100 [...] Flores R.N.) 0506 (Given - Provider: Jaspal lFores R.N.) EPINEPHrine 0.3 mg/0.3 mL injection 0.3 mg 0.3 mg, intramuscular, As needed, anaphylaxis, Starting on Tue07/03/23 at 2347 HYDROmorphone (PF) injection 0.2 mg (DILAUDID) (COMPLETED) 0.2 mg, intravenous, Once as needed, severe pain or score 7-10 of 10, Starting on Tue07/08/23 at 1148, For 1 dose 1215 (Canceled Entry - Provider: Leslie Bustos R.N.)1646 (Given - Provider: Leslie Bustos R.N.) NaCl 0.9% infusion 1-999 mL/hr, intravenous, As [...] Flores R.N.)1015 (Given - Provider: Vera Stallings RPrakashN.)1314 (Given - Provider: Vera Stallings RPrakashN.)1733 (Given - Provider: Vera Stallings RPrakashN.)2131 (Given - Provider: Jaspal Flores R.N.) 0143 (Given - Provider: Jaspal Flores R.N.)0506 (Given - Provider: Jaspal Flores R.N.)0939 (Given - Provider: Maria C Mora RPrakashN.)1941 (Given - Provider: Nicholas Gallegos R.N.) 0637 (Given - Provider: Nicholas Gallegos R.N.)0944 (Given - Provider: Grecia Rivera R.N.) oxyCODONE IR tablet 5 mg (ROXICODONE)(Linked Group [...] (See Alternative - Provider: Maria C Mora R.N.)1941 (See Alternative - Provider: Nicholas Gallegos R.N.) 0637 (See Alternative - Provider: Nicholas Gallegos R.N.)0944 (See Alternative - Provider: Grecia Rivera R.N.) Linked Groups Order Group 1: oxyCODONE IR [...] documented as of this encounter Care Teams Lens Hardener Relationship Specialty Start Date End Date Lilli Chacon M.D. [address] [place] [phone] PCP - General Family Medicine 05/11/21 documented as of this encounter
--- OUTSIDE RECORDS SUMMARY | 2023-07-09 12:35 | XMS_ITS | Encounter Summary ---
Author Organization [facility] Address [address] [place] [address] Care Team Providers Care Land Checker Name Role Phone Lilli Chacon M.D. Primary Care Provider [phone]- [phone] Reason for Referral * Outpatient (Routine) - Authorized Specialty Diagnoses / Procedures Referred By Contac t Referred To Contact Diagnoses Screening Osteoporosis Procedures BMD Bone Density Spine Hips Lilli Chacon M.D. [address], [place] [phone] [facility] Region Referral ID Status Reason Start Date Expiration Date V isits Requested Visits Authorized [id number] Authorized 06/16/2023 06/15/2024 1 1 Reason for Visit * Reason Comments Follow-up * Outpatient (Routine) - Closed Specialty Diagnoses / Procedures Referred By Contac t Referred To Contact Family Medicine Lilli Chacon M.D. [address], [place] [address] [facility] Region Referral ID Status Reason Start Date Expiration Date Visits Re quested Visits Authorized [id number] Closed 01/21/2023 01/20/2026 1 1 Encounter Details Date Type Department Care Team (Late st Contact Info) Description 06/16/2023 8:30 AM CDT Office Visit Department of Family Medicine, [facility], in [place], [place] [address] [phone] Lilli Chacon M.D. [address], [place] [address] Pain Chest Wall (Primary Dx); [...] often do you attend chur ch or religion services? 1 to 4 times per year 09/13/2021 Do you belong to any clubs o r organizations such as oriental orthodox groups, unions, fraternal or athletic groups, [...] Answer Date Recorded PHQ-2 Score 4 06/16/2023 [facility] [place] of Occupat ional Health - Occupational Stress [...] your living situation today? I have [facility] place to live 10/28/2022 Education Answer Date Recorded What is the highest level of school you have completed or the highest degree you have received? Doctorate 09/05/2018 Sex and Gender Information Value Date Recorded Sex Assigned at Female 12/19/2016 7:29 PM VOCATIONAL REHABILITATION TEACHER Gender Identity Female 12/19/2016 7:29 PM VOCATIONAL REHABILITATION TEACHER Sexual Orientation Lesbian or Turcios 03/12/2020 12 :23 PM VOCATIONAL REHABILITATION TEACHER documented as of this encounter Last Filed [...] Body Mass Index 31.06 03/08/2023 8:15 AM VOCATIONAL REHABILITATION TEACHER documented in this encounter Progress Notes * [...] trying to be active. Recently returned from [place] and [place]. Did significant walking there. Is [...] Patient had elevated lipids. We reviewed her Daven[place] risk score. She is wondering about increasing [...] aware that I will be moving to [place] in July. I will be in touch with any results. Thereafter I am happy to see her in [facility] or she will be transferred to a new physician here at [facility]. She is happy with the plan above. [...] Hospital Encounter Post Anesthesia Care Unit in [address] [phone] Corrina Zuniga M.D. [address] [place] [phone] 07/12/2023 7:50 AM CDT - 07/12/2023 11:42 AM CDT Surgery RST ROMB MAIN OR [address] [place] [phone] Corrina Zuniga M.D. [address] [place] [phone] OPEN REDUCTION INTERNAL FIXATION TIBIAL PLATEAU - LEFT, proceed as indicated 08/25/2023 10:00 AM CDT Appointment Department of Radiology in [place], [place] [address], [place] [phone] Lilli Chacon M.D. [address] [place] [phone] 12/19/2023 9:10 AM VOCATIONAL REHABILITATION TEACHER Appointment Department of Laboratory Medicine in [place], [place] [address] [place] [phone] Lilli Chacon M.D. [address] [place] [phone] Scheduled Orders Name Type Priority Associated Diagnoses Orde r Schedule CBC with Differential, Blood Lab Routine Iron Deficiency Anemia Screening Exam Expected: 06/16/2023 (Approximate), Expires: 09/15/2024 BMD Bone Density Spine Hips Imaging RAD - Routine (most inpatients and all outpatients) Screening Osteoporosis Expected: 06/16/2023, Expires: 09/15/2024 Lipid Panel Lab Routine Hyperlipidemia Mixed Expected: 12/17/2023 (Approximate), Expires: 09/15/2024 Scheduled Procedures Name Priority Associated Diagnoses Date/Ti [...] documented as of this encounter Care Teams Land Checker Relationship Specialty Start Date End Date Lilli Chacon M.D. [address] [place] [phone] PCP - General Family Medicine 05/11/21 documented as of this encounter
--- OUTSIDE RECORDS SUMMARY | 2023-07-09 12:35 | XMS_ITS | Encounter Summary ---
Author Organization [facility] Address [address] [place] [address] Care Team Providers Care Fitter Machinist Name Role Phone Lilli Chacon M.D. Primary Care Provider +1- [phone] Reason for Visit * Outpatient (Routine) - Closed Specialty Diagnoses / Procedures Referred By Cortes t Referred To Contact Diagnoses Pain Chest Wall Procedures PM Trigger point injection Lilli Chacon M.D. [address] [place] [address] [facility] Referral ID Status Reason Start Date Expiration Date Visits Re quested Visits Authorized [id number] Closed 04/08/2023 04/07/2024 1 1 Encounter Details Date Type Department Care Team (Late st Contact Info) Description 05/03/2023 1:30 PM CDT Procedure visit Division of Pain Medicine in [place], [place] [address] [place] [phone] Eva Velazco M.D. [address] [place] [phone] Pain Chest Wall Social History Tobacco Use [...] often do you attend chur ch or voodoo services? 1 to 4 times per year [...] Answer Date Recorded PHQ-2 Score 2 01/21/2023 [facility] [place] of Occupat ional Health - Occupational Stress [...] your living situation today? I have a [facility] place to live 10/28/2022 Education Answer Date Recorded What is the highest level of school you have completed or the highest degree you have received? Doctorate 09/05/2018 Sex and Gender Information Value Date Recorded Sex Assigned at Female 12/19/2016 7:29 PM STATE FARM AGENT TEAM MEMBER Gender Identity Female 12/19/2016 7:29 PM STATE FARM AGENT TEAM MEMBER Sexual Orientation Lesbian or Turcios 03/12/2020 12 :23 PM STATE FARM AGENT TEAM MEMBER documented as of this encounter Procedure Notes [...] fellow participated in the procedure, and the independent consultant was present for the entire procedure. OPERATIVE NOTE INFORMATION Specimens: 0 Drains: 0 Estimated blood loss: 0 Implants: 0 documented in this encounter Plan of Treatment Upcoming Encounters Date Type Department Care Team (Latest Contact Info) Description 07/12/2023 7:50 AM CDT Hospital Encounter Post Anesthesia Care Unit in [address] [phone] Corrina Zuniga M.D. [address] [place] [phone] 07/12/2023 7:50 AM CDT - 07/12/2023 11:42 AM CDT Surgery [facility]ST ROMB MAIN OR [facility] [address] [place] [phone] Corrina Zuniga M.D. [address] [place] [phone] OPEN REDUCTION INTERNAL FIXATION TIBIAL PLATEAU - LEFT, proceed as indicated 08/25/2023 10:00 AM CDT Appointment Department of Radiology in [place], [place] [address] [place] [address] Lilli Chacon M.D. [address] [place] [phone] 12/19/2023 9:10 AM STATE FARM AGENT TEAM MEMBER Appointment Department of Laboratory Medicine in [address] [place] [phone] Lilli Chacon M.D. [address] [facility] [place] [phone] Scheduled Procedures Name Priority Associated Diagnoses Date/Ti me OPEN REDUCTION INTERNAL FIXA TION TIBIAL PLATEAU 07/12/2023 7:50 AM C DT documented as of this encounter Procedures Procedure Name Priority Date/Time Associated Diagnosis Comments AL US GUIDE PLC NDL Routine 05/03/2023 1 :30 PM CDT Pain Chest Wall AL INJ TRIGGER PNT<=2 MUS Routine 05/03/2023 1:30 PM CDT Pain Chest Wall documented in this encounter Results * AL INJ TRIGGER PNT<=2 MUS, AL US GUIDE PLC NDL (05/03/2023 1:30 PM CDT) Narrative [facility]ODAL - 05/03/2023 1:30 PM CDT Eva Velazco M.D. ? 05/03/2023 ??1:52 PM PM Trigger point injection (right cervical and left cervical) Performed by: Eva Velazco M.D. Authorized by: Lilli Chacon M.D. ?? Care team members present 1. Louisa Garcia, NorthPPrakashN. 2. Junaid Stack D.O. PROCEDURE SUMMARY ?? [...] fellow participated in the procedure, and the independent consultant was present for the entire procedure. [...] Total Score: 5 01/22/20 23 12:09 AM STATE FARM AGENT TEAM MEMBER documented as of this encounter Care Teams Fitter Machinist Relationship Specialty Start Date End Date Lilli Chacon M.D. [address] [phone] PCP - General Family Medicine 05/11/21 documented as of this encounter
--- OUTSIDE RECORDS SUMMARY | 2023-07-09 12:35 | XMS_ITS | Encounter Summary ---
Author Organization [facility] Address [address] [place] [address] Care Team Providers Care Home Health Clinician Name Role Phone Lilli Chacon M.D. Primary Care Provider +1- [phone] Reason for Visit * Auth/Cert (Routine) Specialty Diagnoses / Procedures Referred By Contac t Referred To Contact Diagnoses Fracture Tibial Plateau Closed Initial Left Tib Fib Fracture Procedures EMERGENCY Otis Mak M.D. [address] [place] [phone] Referral ID Status Reason Start Date Expiration Date Visits Re quested Visits Authorized [id number] 1 1 Encounter Details Date Type Department Care Team (Late st Contact Info) Description 07/04/2023 11:53 AM CDT Anesthesia Event RST ROMB MAIN OR [address] [place] [phone] Jamir Dye M.D. [address] [place] [phone] Olivia Foley M.D. [address] [place] [phone] Anesthesia Record Procedure Summary Procedure Name Responsible Anesthesiologist Anesthesia Start Time Anesthesia Stop Time APPLICATION EXTERNAL FIXATION LOWER EXTREMITY, KNEE SPANNING (Left: Leg Lower) Jamir Dye M.D. 07/04/23 1153 07/04/23 1407 Events Date Time Event Comment 07/04/2023 1153 An Start Machine/Equipme nt Checked Infection Precautions Followed Procedure/Site Verified NPO Status Verified Supine Standard ASA Monitors Applied 1204 An Induction 1207 An Intubation 1208 Turnover to Proceduralist 1244 Proc Start 1338 Proc Fin 1359 Turnover to ANE Staff 1404 Airway Removal Criteria Met 1404 Extubation/Airway Removed 1404 an stop data 1407 An End I completed my handoff to the receiving staff during which we 1. Identified the patient 2. Identified the responsible provider 3. Reviewed the pertinent medical history 4. Discussed the surgical course 5. Reviewed intra-op anesthesia management and issues during anesthesia 6. Set expectations for post-procedure period 7. Allowed opportunity for questions and acknowledgement of understanding. Meds Name Total fentanyl injection 50 mcg/mL 100 mcg lidocaine 2% (mg) injection 60 mg rocuronium 10 mg/mL injection 60 mg phenylephrine 100 mcg/mL injection 700 m cg ePHEDrine PF 5 mg/mL syringe injection 2 5 mg ondansetron 4 mg/2 mL injection 4 mg sugammadex 100 mg/mL injection 200 mg propofol 10 mg/mL injection 130 mg ketamine 10 mg/mL injection 20 mg dexAMETHasone (DECADRON) injection 4 mg/ mL 4 mg ceFAZolin injection 2,000 mg (ANCEF) 2 g Lactated Ringers Free Drip 1,500 mL * Agents No agents on file. * Blood No blood administrations on file. Lines, Drains, and Airways Type Details Placement Removal Phototherapy - UVB (mJ) Whole Body; 10/15/2009/27 0000 by Ketty Dimas, R.N. Ortho External Skeletal Fixation Pin Sites 07/04/23; 1335; Lower Extremity; Left 07/04/23 1335 by Chiqui Damon R.N. Wound 07/04/23; 1349; Y; Laceration; Hand; Right 07/04/23 1349 by Chiqui Damon R.N. Peripheral IV Placement Date: 07/03/23; Placement Time: 2224; Existing LDA Placed by: EMS; Catheter Size: 20 G; Orientation: Posterior, Right; Location: Wrist; Removal Date: 07/08/23; Removal Time: 1248; Removal Reason: Leaking 07/03/232224 by Meka Bowie, R.NPrakash 07/08/23 1248 by Mindy HarryT Placement Date: 07/04/23; Placement Time: 1207 (created via procedure documentation); Mask Ventilation: Easy mask; Technique: Video laryngoscopy; Type: Standard ETT; Single Lumen Tube Size: 7 mm; Cuffed: Yes; Location: Oral; Grade View: Grade 1; Insertion Attempts: 1; Placement Verification: Bilateral breath sounds, Positive ETCO2, Symmetrical chest wall movement; Removal Date: 07/04/23; Removal Time: 1404 07/04/23 1207 by Manasa Corona APRN, CRNA, MNA 07/04/23 1404 by Manasa Corona APRN, CRNA, MNA documented in this encounter Social History Tobacco Use Types Packs/Day Years Used Date Smoking Tobacco: Former Cigarettes 2002 Smokeless Tobacco: Never Alcohol Use Standard Drinks/Week Comments Yes 2 (1 standard drink = 0.6 oz pur e alcohol) [facility] Utilities Answer Date Recorded In the past 12 months has [employer], gas, oil, or water [employer] threatened to shut off services in your [...] week 09/13/2021 How often do you attend [facility] or hindu services? 1 to 4 times per year 09/13/2021 Do you belong to any clubs o r organizations such as yazidi groups, unions, fraternal or athletic groups, or [...] Answer Date Recorded PHQ-2 Score 4 06/16/2023 [facility] - Occupational Stress Questionnaire Answer Date [...] your living situation today? I have a [facility] place to live 07/04/2023 Education Answer Date Recorded What is the highest level of school you have completed or the highest degree you have received? Doctorate 09/05/2018 Sex and Gender Information Value Date Recorded Sex Assigned at Female 12/19/2016 7:29 PM CHIEF HUMAN RESOURCES OFFICER Gender Identity Female 12/19/2016 7:29 PM CHIEF HUMAN RESOURCES OFFICER Sexual Orientation Lesbian or Turcios 03/12/2020 12 :23 PM CHIEF HUMAN RESOURCES OFFICER documented as of this encounter OR Notes * Anesthesia Postprocedure Evaluation - Jamir Dye M.D. - 07/04/2023 3:05 PM CDT Patient: Shreya Douglas Procedure Summary Date: 07/04/23 Room / Location: [place] [address] / [facility] in [place], [place] Anesthesia Start: 1153 Anesthesia Stop: 1407 Procedure: APPLICATION EXTERNAL FIXATION LOWER EXTREMITY, KNEE SPANNING (Left: Leg Lower) Diagnosis: Fracture Tibial Plateau Closed Initial Left (Fracture Tibial Plateau Closed Initial Left [S82.142A]) Providers: Jaxson Rodriguez M.D. Responsible Provider: Jamir Dye M.D. Anesthesia Type: general ASA Status: 2 - Emergent Anesthesia Type: general Last vitals Vitals Value Taken Time BP 151/67 07/04/23 1500 Temp 36.4 ??C 07/04/23 1410 Pulse 74 07/04/23 1505 Resp 8 07/04/23 1505 SpO2 99 % 07/04/23 1505 Vitals shown include unfiled device data. Please reference Vitals flowsheet for most recent vital signs. Anesthesia Post Evaluation Patient Disposition: general care unit Cardiovascular status: hemodynamics (HR & BP) acceptable Respiratory status: patent airway with spontaneous effort Temperature: normothermic Oxygen requirements: room air Level of consciousness: awake Pain score: pain adequately controlled and/or at baseline Post Op nausea/vomiting: none Hydration status: euvolemic * Anesthesia Procedure Notes - Manasa Corona APRN, CRNA, MNA - 07/04/2023 12:22 PM CDTAssociated Order(s): Airway Airway Date/Time: 07/04/2023 12:07 PM Performed by: Manasa Corona APRN, CRNA, MNA Authorized by: Jamir Dye M.D. Patient location during procedure: OR / Procedure Area PROCEDURE DETAILS: Mask difficulty assessment: easy mask Final airway type: video laryngoscope Laryngeal Manipulation: no Final best view of glottic structures - Cormack/Lehane Score: grade 1 ETT location: oral VL device: glide scope Speedwell scope blade size: 3 Tube size: 7 ETT distance at teeth/gum: 21 Oral tube type: standard ETT Cuffed: yes Leak Test Performed: no Number of attempt to successful placement: 1 Airway confirmation: bilateral breath sounds, positive ETCO2 and bilateral chest rise Other previous techniques attempted: none PRE PROCEDURE DETAILS: Pre evaluation for airway management: procedure Urgency: elective Preop assessment of probable difficulty: no difficulty anticipated Preoxygenation: bag valve mask SEDATION / ANESTHESIA Anesthesia method: anesthesia POST PROCEDURE DETAILS: Procedure outcome: successful Notable Events: no complications * Anesthesia Preprocedure Evaluation - Jamir Dye M.D. - 07/04/2023 10:49 AM CDT Preprocedure Anesthesia & H&P Assessment Procedure Summary Date/Time: 07/04/23 1037 Procedure: APPLICATION EXTERNAL FIXATION LOWER EXTREMITY, KNEE SPANNING (Left) Diagnosis: Fracture Tibial Plateau Closed Initial Left [S82.142A] Pre-op diagnosis: Fracture Tibial Plateau Closed Initial Left [S82.142A] Location: [address] [facility] / [facility] in [place], [place] Providers: Jaxson Rodriguez M.D. Pertinent components of the patient's history including current problem list, medical history, surgical history, family history, social history, medications and allergies were reviewed. Present illness and pre-op diagnosis were confirmed. The planned surgery / procedure was verified with the patient / legal guardian. The patient's general health condition remains unchanged RELEVANT COMORBID CONDITIONS ENDO (+) Hypothyroidism PSYCH (+) Depression Major GI (+) Gastroesophageal Reflux Disease NOS Circulatory (+) Regurgitation Mitral Musculoskeletal (+) Fracture Tibial Plateau Closed Initial Left Endocrine/Metabolic (+) Hypercholesterolemia Psychiatric (+) Anxiety Generalized Disorder Other (+) Obesity Body Mass Index 30-39.9 Adult OBJECTIVE PHYSICAL EXAMINATION Airway (HEENT) Mallampati: II TM Distance: >3 FB Neck ROM: Full Mouth Opening: >3 cm Upper Lip Bite Test Class: I Cardiovascular Rhythm: Regular Rate: Normal Cardiovascular Assessment: cardiovascular normal Functional Capacity: >4 METS Pulmonary Pulmonary Assessment: Clear General / Constitutional Constitutional Assessment: Normal General State of Health:: healthy appearing and calm Neurological Neurologic Assessment: alert ASSESSMENT / PLAN ANESTHESIA PLAN ASA: 2 - Emergent Anesthesia Plan: general Patient seen and allergies reviewed, anesthesia plan and risks discussed directly with patient /legal guardian or through an bulk sealer operator. Risks/Benefits/Alternatives of Blood transfusion discussed with patient / legal guardian, includingan opportunity to ask questions and/or decline some or all transfusion therapies. The patient / legal guardian consented to the use of all blood products, as deemed medically necessary Approval to Proceed: approved for anesthesia documented in this encounter Plan of Treatment Upcoming Encounters Date Type Department Care Team (Latest Contact Info) Description 07/12/2023 7:50 AM CDT Hospital Encounter Post Anesthesia Care Unit in [place], [place] [address] [place] [address] Corrina Zuniga M.D. [address] [place] [address] 07/12/2023 7:50 AM CDT - 07/12/2023 11:42 AM CDT Surgery RST ROMB MAIN OR [address] [place] [address] Corrina Zuniga M.D. [address] [place] [address] OPEN REDUCTION INTERNAL FIXATION TIBIAL PLATEAU - LEFT, proceed as indicated 08/25/2023 10:00 AM CDT Appointment Department of Radiology in [place], [place] [address] [place] [address] Lilli Chacon M.D. [address] [place] [phone] 12/19/2023 9:10 AM CHIEF HUMAN RESOURCES OFFICER Appointment Department of Laboratory Medicine in [address] [place] [phone] Lilli Chacon M.D. [address] [place] [address] Scheduled Procedures Name Priority Associated Diagnoses Date/Ti me OPEN REDUCTION INTERNAL FIXA TION TIBIAL PLATEAU 07/12/2023 7:50 AM C DT documented as of this encounter Procedures Procedure Name Priority Date/Time Associated Diagnosis Comments LDA ANE ENDOTRACHEAL AIRWAY Routine 07/04/2023 12:07 PM CDT documented in this encounter Results * LDA ANE ENDOTRACHEAL AIRWAY (07/04/2023 12:07 [...] ETT location: oral VL device: glide scope Speedwell scope blade size: 3 Tube size: 7 [...] complications Jamir Dye M.D. ANESTHESIA ORDER SHADE documented in this encounter Visit Diagnoses Not on filedocumented in this encounter Administered Medications Inactive Administered Medications - up to 3 most recent administrations Medication Order MAR Action Action Date Dose Rate Site ceFAZolin injection 2,000 mg (ANCEF) 2,000 mg (25 mg/kg ? 80 kg), intravenous, Once, On Tue07/04/23 at 0330, For 1 dose, Intra-Op, Preoperatively within 1 hour prior to surgical incision If needed, reconstitute vial per package insert instructions. See IVAG for administration guidelines., Drug Monitoring Program: Pharmacist to adjust medication dosing based on indication and drug clearance factors., Indications: Prophylaxis, surgical Given 07/04/2023 12:26 PM CDT 2 g dexAMETHasone injection (DECADRON) intravenous, As needed, Starting on Tue07/04/23 at 1214, Anesthesia Intra-op Given 07/04/2023 12:14 PM CDT 4 mg ePHEDrine (PF) injection intravenous, As needed, Starting on Tue07/04/23 at 1244, Anesthesia Intra-op Given 07/04/2023 1:10 PM CDT 5 mg Given 07/04/2023 1:01 PM CDT 10 mg Given 07/04/2023 12:44 PM CDT 10 mg fentaNYL injection (SUBLIMAZE) intravenous, As needed, Starting on Tue07/04/23 at 1204, Anesthesia Intra-op Given 07/04/2023 12:04 PM CDT 100 mc g ketamine injection (KETALAR) intravenous, As needed, Starting on Tue07/04/23 at 1204, Anesthesia Intra-op Given 07/04/2023 12:04 PM CDT 20 mg Lactated Ringer's intravenous, Continuous Infusion: Per Instructions PRN, Starting on Tue07/04/23 at 1153, Anesthesia Intra-op New Bag 07/04/2023 1:13 PM CDT New Bag 07/04/2023 11:53 AM CDT lidocaine (PF) (cardiac) injection intravenous, As needed, Starting on Tue07/04/23 at 1204, Anesthesia Intra-op Given 07/04/2023 12:04 PM CDT 60 mg ondansetron (PF) injection (ZOFRAN) intravenous, As needed, Starting on Tue07/04/23 at 1306, Anesthesia Intra-op Given 07/04/2023 1:06 PM CDT 4 mg phenylephrine injection intravenous, As needed, Starting on Tue07/04/23 at 1214, Anesthesia Intra-op Given 07/04/2023 1:10 PM CDT 100 mcg Given 07/04/2023 12:44 PM CDT 100 mcg Given 07/04/2023 12:37 PM CDT 200 mcg propofoL injection (DIPRIVAN) intravenous, As needed, Starting on Tue07/04/23 at 1204, Anesthesia Intra-op Given 07/04/2023 12:07 PM CDT 30 mg Given 07/04/2023 12:04 PM CDT 100 mg rocuronium injection (ZEMURON) intravenous, As needed, Starting on Tue07/04/23 at 1205, Anesthesia Intra-op Given 07/04/2023 12:50 PM CDT 10 mg Given 07/04/2023 12:05 PM CDT 50 mg sugammadex injection (BRIDION) intravenous, As needed, Starting on Tue07/04/23 at 1326, Anesthesia Intra-op Given 07/04/2023 1:26 PM CDT 200 mg documented in this encounter Additional Health Concerns Assessment Noted Time PHQ-9 Depression Total Score: 9 06/16/19 24 7:14 AM CDT documented as of this encounter Care Teams Home Health Clinician Relationship Specialty Start Date End Date Lilli Chacon M.D. [address] [place] [address] PCP - General Family Medicine 05/11/21 documented as of this encounter
--- OUTSIDE RECORDS SUMMARY | 2023-07-09 12:35 | XMS_ITS | Encounter Summary ---
Author Organization [facility] Address [address] [place] [address] Care Team Providers Care Lead Maintenance Technician Name Role Phone Lilli Chacon M.D. Primary Care Provider +1- [phone] Encounter Details Date Type Department Care Team (Latest Contact Info) Description 05/03/2023 12:45 PM CDT Comprehensive Visit Division of Pain Medicine in [place], [place] [address] [place] [address] Eva Srivastava, BALBIR, C.N.P., M.S.N. [address] [place] [phone] Pain Chest Wall (Primary Dx) Social History [...] How often do you attend chur or confucianist services? 1 to 4 times per year [...] Answer Date Recorded PHQ-2 Score 2 01/21/2023 [facility] - Occupational Stress [...] your living situation today? I have a [facility] place to live 10/28/2022 Education Answer Date Recorded What is the highest level of school you have completed or the highest degree you have received? Doctorate 09/05/2018 Sex and Gender Information Value Date Recorded Sex Assigned at Female 12/19/2016 7:29 PM CENTER DIRECTOR LEAD TEACHER Gender Identity Female 12/19/2016 7:29 PM CENTER DIRECTOR LEAD TEACHER Sexual Orientation Lesbian or Turcios 03/12/2020 12 :23 PM CENTER DIRECTOR LEAD TEACHER documented as of this encounter Last [...] 2 spots left. NEURO: STRENGTH: 5/5, 5/5 account processor strength MENTAL: Alert, oriented, appropriate mood and [...] Hospital Encounter Post Anesthesia Care Unit in [place] [id number] [place] [phone] Corrina Zuniga M.D. [address] [place] [phone] 07/12/2023 7:50 AM CDT - 07/12/2023 11:42 AM CDT Surgery RST ROMB MAIN OR [address] [place] [phone] Corrina Zuniga M.D. [address] [place] [address] OPEN REDUCTION INTERNAL FIXATION TIBIAL PLATEAU - LEFT, proceed as indicated 08/25/2023 10:00 AM CDT Appointment Department of Radiology in [place], [place] [address] [phone] Lilli Chacon M.D. [address] [place] [phone] 12/19/2023 9:10 AM CENTER DIRECTOR LEAD TEACHER Appointment Department of Laboratory Medicine in [place], [place] [address] [place] [address] Lilli Chacon M.D. [address] [phone] Scheduled Procedures Name Priority Associated Diagnoses Date/Ti me OPEN REDUCTION INTERNAL FIXA TION TIBIAL PLATEAU 07/12/2023 7:50 AM C DT documented as of this encounter Visit Diagnoses Diagnosis Pain Chest Wall- Primary documented in this encounter Additional Health Concerns Assessment Noted Time PHQ-9 Depression Total Score: 5 01/22/20 23 12:09 AM CENTER DIRECTOR LEAD TEACHER documented as of this encounter Care Teams Lead Maintenance Technician Relationship Specialty Start Date End Date Lilli Chacon M.D. [address] [phone] PCP - General Family Medicine 05/11/21 documented as of this encounter
--- OUTSIDE RECORDS SUMMARY | 2023-07-09 12:35 | XMS_ITS | Encounter Summary ---
Author Organization [facility] Address [address] [place] [address] Care Team Providers Care Maths Tutor Name Role Phone Lilli Chacon M.D. Primary Care Provider +1- [phone] Encounter Details Date Type Department Care Team (Late st Contact Info) Description 04/07/2023 Clinical Communication Department of Family Medicine, [facility], in [place], [place] [address] [place] [phone] Lilli Chacon M.D. [address] [place] [phone] Social History Tobacco Use Types Packs/Day [...] often do you attend chur ch or christian services? 1 to 4 times per year 09/13/2021 Do you belong to any clubs o r organizations such as bahai groups, unions, fraternal or athletic groups, or [...] Answer Date Recorded PHQ-2 Score 2 01/21/2023 [facility] - Occupational Stress Questionnaire Answer [...] your living situation today? I have a [facility] place to live 10/28/2022 Education Answer Date Recorded What is the highest level of school you have completed or the highest degree you have received? Doctorate 09/05/2018 Sex and Gender Information Value Date Recorded Sex Assigned at Female 12/19/2016 7:29 PM CLAY MOLDER Gender Identity Female 12/19/2016 7:29 PM CLAY MOLDER Sexual Orientation Lesbian or Turcios 03/12/2020 12 :23 PM CLAY MOLDER documented as of this encounter Plan of Treatment Upcoming Encounters Date Type Department Care Team (Latest Contact Info) Description 07/12/2023 7:50 AM CDT Hospital Encounter Post Anesthesia Care Unit in [place], [place] [address] [place] [phone] Corrina Zuniga M.D. [address] [place] [address] 07/12/2023 7:50 AM CDT - 07/12/2023 11:42 AM CDT Surgery RST ROMB MAIN OR [address] [place] [phone] Corrina Zuniga M.D. [address] [place] [address] OPEN REDUCTION INTERNAL FIXATION TIBIAL PLATEAU - LEFT, proceed as indicated 08/25/2023 10:00 AM CDT Appointment Department of Radiology in [place], [place] [address] [address] Lilli Chacon M.D. [address] [place] [phone] 12/19/2023 9:10 AM CLAY MOLDER Appointment Department of Laboratory Medicine in [place] [address] [place] [address] Lilli Chacon M.D. [address] [place] [phone] Scheduled Procedures Name Priority Associated Diagnoses Date/Ti me OPEN REDUCTION INTERNAL FIXA TION TIBIAL PLATEAU 07/12/2023 7:50 AM C DT documented as of this encounter Visit Diagnoses Diagnosis Pain Chest Wall- Primary documented in this encounter Additional Health Concerns Assessment Noted Time PHQ-9 Depression Total Score: 5 01/22/20 23 12:09 AM CLAY MOLDER documented as of this encounter Care Teams Maths Tutor Relationship Specialty Start Date End Date Lilli Chacon M.D. [address] [place] [phone] PCP - General Family Medicine 05/11/21 documented as of this encounter
--- OUTSIDE RECORDS SUMMARY | 2023-07-09 12:35 | XMS_ITS | Encounter Summary ---
Author Organization [facility] Address [address] [place] [address] Care Team Providers Care Physician Coder Name Role Phone Lilli Chacon M.D. Primary Care Provider +1- [phone] Reason for Referral * Outpatient (Routine) - Authorized Specialty Diagnoses / Procedures Referred By Cortes mak Referred To Contact Procedures OPH General eye exam Tyshawn Puga M.D. [address] [place] [address] [facility] Region Referral ID Status Reason Start Date Expiration Date V isits Requested Visits Authorized [id number] Authorized 06/17/2023 06/16/2024 1 1 Reason for Visit * Reason Comments Eye Exam * Appointment Request (Routine) - Closed Specialty Diagnoses / Procedures Referred By Cortes mak Referred To Contact Ophthalmology Referral ID Status Reason Start Date Expiration Date Visits Re quested Visits Authorized [id number] Closed 04/06/2023 04/05/2024 1 1 Encounter Details Date Type Department Care Team (Latest Contact Info) Description 06/17/2023 8:15 AM CDT Comprehensive Visit Department of Ophthalmology in [place], [place] [address] [place] [address] Tyshawn Puga M.D. [address] [address] Cataract Senile Nuclear Sclerosis Bilateral [...] often do you attend chur ch or episcopalian services? 1 to 4 times per year [...] Answer Date Recorded PHQ-2 Score 4 06/16/2023 [facility] - Occupational [...] Sex Assigned at Female 12/19/2016 7:29 PM SLASHER SAWYER Gender Identity Female 12/19/2016 7:29 PM SLASHER SAWYER Sexual Orientation Lesbian or Turcios 03/12/2020 12 :23 PM SLASHER SAWYER documented as of this encounter Progress Notes [...] Hospital Encounter Post Anesthesia Care Unit in [place], [place] [address] [place] [phone] Corrina Zuniga M.D. [address] [place] [address] 07/12/2023 7:50 AM CDT - 07/12/2023 11:42 AM CDT Surgery RST ROMB MAIN OR [address] [place] [phone] Corrina Zuniga M.D. [address] [place] [phone] OPEN REDUCTION INTERNAL FIXATION TIBIAL PLATEAU - LEFT, proceed as indicated 08/25/2023 10:00 AM CDT Appointment Department of Radiology in [place], [place] [address] [place] [address] Lilli Chacon M.D. [address] [place] [address] 12/19/2023 9:10 AM SLASHER SAWYER Appointment Department of Laboratory Medicine in [place] [address] [place] [phone] Lilil Chacon M.D. [address] [place] [phone] Scheduled Orders Name Type Priority Associated Diagnoses Orde r Schedule OPH General eye exam Procedures Routine Expe cted: 06/16/2024, Expires: 09/16/2024 Scheduled Procedures Name Priority Associated Diagnoses Date/Ti [...] documented as of this encounter Care Teams Physician Coder Relationship Specialty Start Date End Date Lilli Chacon M.D. [address] [place] [phone] PCP - General Family Medicine 05/11/21 documented as of this encounter
--- OUTSIDE RECORDS SUMMARY | 2023-07-09 12:36 | XMS_ITS | Encounter Summary ---
Author Organization [facility] Address [address] [place] [address] Care Team Providers Care Tube Man Name Role Phone Lilli Chacon M.D. Primary Care Provider [phone]- [phone] Reason for Visit * Reason Onset Date Comments Communication 03/21/2023 Encounter Details Date Type Department Care Team (Late st Contact Info) Description 03/21/2023 Clinical Communication Department of Family Medicine, [facility], in [place], [place] [address] [phone] Lilli Chacon M.D. [address] [phone] Communication Social History Tobacco Use [...] week 09/13/2021 How often do you attend [facility] or evangelical services? 1 to 4 times per year 09/13/2021 Do you belong to any clubs o r organizations such as anabaptist groups, unions, fraternal or athletic groups, or [...] Answer Date Recorded PHQ-2 Score 2 01/21/2023 [facility] - Occupational [...] your living situation today? I have a [facility] place to live 10/28/2022 Education Answer Date Recorded What is the highest level of school you have completed or the highest degree you have received? Doctorate 09/05/2018 Sex and Gender Information Value Date Recorded Sex Assigned at Female 12/19/2016 7:29 PM SPAR MACHINE OPERATOR HELPER Gender Identity Female 12/19/2016 7:29 PM SPAR MACHINE OPERATOR HELPER Sexual Orientation Lesbian or Turcios 03/12/2020 12 :23 PM SPAR MACHINE OPERATOR HELPER documented as of this encounter Plan of Treatment Upcoming Encounters Date Type Department Care Team (Latest Contact Info) Description 07/12/2023 7:50 AM CDT Hospital Encounter Post Anesthesia Care Unit in [place], [place] [address] [place] [phone] Corrina Zuniga M.D. [address] [place] [address] 07/12/2023 7:50 AM CDT - 07/12/2023 11:42 AM CDT Surgery [facility]ST ROMB MAIN OR [address] [place] [phone] Corrina Zuniga M.D. [address] [place] [address] OPEN REDUCTION INTERNAL FIXATION TIBIAL PLATEAU - LEFT, proceed as indicated 08/25/2023 10:00 AM CDT Appointment Department of Radiology in [place], [place] [address] [place] [phone] Lilli Chacon M.D. [address] [place] [phone] 12/19/2023 9:10 AM SPAR MACHINE OPERATOR HELPER Appointment Department of Laboratory Medicine in [place] [address] [place] [address] Lilli Chacon M.D. [address] [place] [phone] Scheduled Procedures Name Priority Associated Diagnoses Date/Ti me OPEN REDUCTION INTERNAL FIXA TION TIBIAL PLATEAU 07/12/2023 7:50 AM C DT documented as of this encounter Visit Diagnoses Not on filedocumented in this encounter Additional Health Concerns Assessment Noted Time PHQ-9 Depression Total Score: 5 01/22/20 23 12:09 AM SPAR MACHINE OPERATOR HELPER documented as of this encounter Care Teams Tube Man Relationship Specialty Start Date End Date Lilli Chacon M.D. [address] [phone] PCP - General Family Medicine 05/11/21 documented as of this encounter
== END 2023-07-03 17:02 | disposition home or self-care (01) ==
LOC: AMB 07-09 12:32
PROVIDERS: PCP Family Medicine; Visit Provider Family Medicine
DX: S89.92XA Unspecified injury of left lower leg, initial encounter (principal); W11.XXXA Fall on and from ladder, initial encounter; Y93.9 Activity, unspecified; Y92.007 Garden or yard of unspecified non-institutional (private) residence as the place of occurrence of the external cause
CPT/HCPCS: A0425; A0433

== ENCOUNTER 2023-07-03 17:40 | Emergency (ER) | payer OTHER, SELFPAY ==
[2023-07-03] VITALS (17 sets, daily range): BP systolic 135–154; BP diastolic 70–80; PULSE 73–92; RESP 16–18; TEMP 36.4–36.5; O2SAT 95–100; BMI 29.7
--- NOTE | 2023-07-03 17:48 | CRLHL7_ITS ---
For Patients: As a result of the Century Cures Act, medical imaging exams and procedure reports are released immediately into your electronic medical record. You may view this report before your referring provider. If you have questions, please contact your health care provider. Indication: Fall, deformations Comparison: None available. Technique: AP and lateral views left proximal tibia were obtained. Findings: Markedly comminuted fracture of the proximal tibia with depressed impaction injury of the lateral tibial plateau. Additional impaction fracture of the proximal fibula is appreciated. Marked proximal pretibial soft tissue swelling. Impression: Comminuted impaction fracture of the proximal tibia including the lateral tibial plateau with involvement of the tibiofemoral joint space. Moderate soft tissue swelling. Dictated by Brock Jansen MD @ 07/03/2023 6:41:43 PM (Electronically Signed)
--- NOTE | 2023-07-03 18:10 | ED.GENADULT ---
HPI - General Adult General Chief complaint: Extremity Pain/Injury, Lower <Lisa Doyle MD - Last Filed: 07/03/23 19:55> Stated complaint: Fall; possible broken left leg/foot <Lisa Doyle MD - Last Filed: 07/03/23 19:55> Time Seen by Provider: 07/03/23 17:48 <Lisa Doyle MD - Last Filed: 07/03/23 19:55> Source: patient <Lisa Doyle MD - Last Filed: 07/03/23 19:55> Mode of arrival: EMS <Lisa Doyle MD - Last Filed: 07/03/23 19:55> Limitations: no limitations <Lisa Doyle MD - Last Filed: 07/03/23 19:55> History of Present Illness HPI narrative: 72-year-old female coming in today complaining of left leg pain. Patient states she was gardening and was on a 3 ft ladder when she lost her balance she stepped backwards with the left leg and when the leg it before she felt sudden pain in the mid lower leg. She fell to the ground. She initially denies hitting her head, but then later states that she could of lightly hit. She denies headache, denies neck pain. Denies chest or abdominal pain. Patient denies taking any anticoagulants. She does take Wellbutrin, naltrexone for weight loss, levothyroxine, pravastatin. <Lisa Doyle MD - Last Filed: 07/03/23 19:55> Related Data Home medications: Home Medications ?Medication ?Instructions ?Recorded ?Confirmed levothyroxine 100 mcg tablet 100 mcg PO DAILY 01/24/23 03/30/23 pravastatin 40 mg tablet 40 mg PO DAILY 01/24/23 03/30/23 <Lisa Doyle MD - Last Filed: 07/03/23 19:55> Allergies/adverse reactions: Allergies Allergy/AdvReac Type Severity Reaction Status Date / Time No Known Drug Allergies Allergy Unverified 03/30/23 09:03 <Lisa Doyle MD - Last Filed: 07/03/23 19:55> Review of Systems Status of ROS: Reports: 10 or more systems reviewed and unremarkable except as noted in History and below <Lisa Doyle MD - Last Filed: 07/03/23 19:55> PFSH PFSH Medical History: Medical History Greater trochanteric bursitis of right hip ?M70.61 - Trochanteric bursitis, right hip (ICD-10) Trochanteric bursitis (12/11/12) ?M70.60 - Trochanteric bursitis, unspecified hip (ICD-10) Overweight (12/11/12) ?E66.3 - Overweight (ICD-10) Bursitis of right shoulder ?M75.51 - Bursitis of right shoulder (ICD-10) <Lisa Doyle MD - Last Filed: 07/03/23 19:55> Surgical History: Surgical History Status post hip surgery (02/17/23) ?Z98.890 - Other specified postprocedural states (ICD-10) No significant past surgical history <Lisa Doyle MD - Last Filed: 07/03/23 19:55> Family History: Family History Father Depression Alcohol dependence Lymphoma Mother Heart disease High cholesterol High blood pressure Maternal Grandfather Lung cancer <Lisa Doyle MD - Last Filed: 07/03/23 19:55> Social History: Social History Smoking Status: Former smoker What tobacco products do you use: cigarettes Smoking quit date/years: >15 years ago Do you use any of these nicotine containing products: None Second hand tobacco smoke exposure: No <Lisa Doyle MD - Last Filed: 07/03/23 19:55> Exam Narrative: Exam Narrative: Well-nourished well-developed patient in mild distress. Alert and oriented x3. Answers questions appropriately. Mood and affect are appropriate. Thoughts are goal oriented and rational. No tangential or magical thinking noted. Patient speaks in full sentences without needing to catch her breath. Speech is not slurred or pressure. She is not confused. GCS is 15. She is breathing and speaking without difficulty. There is no obvious bleeding noted. HEENT: Normocephalic. Patient has on the right upper forehead and area of redness consistent with acute trauma. Pupils are equally round reactive to light. Extraocular muscles are intact. Conjunctivae are moist without any icterus noted. Moist mucous membranes. Posterior pharynx is normal. Neck is soft without any lymphadenopathy or thyromegaly. No masses are appreciated. No tenderness to palpation cervical spine. She has full range of motion of neck with flexion, extension, side way bending or rotation without any pain. Cardiovascular: Heart is regular rate and rhythm S1 and S2 are present without any murmurs. She has no tenderness to palpation of the chest wall anteriorly or laterally. Lungs: Clear to auscultation bilaterally no wheezes rhonchi or rales are appreciated. Patient takes deep breaths without any discomfort. Abdomen: Soft and nontender nondistended with normal bowel sounds. Extremities: Bilateral lower extremities are without edema. Patient has swelling and tenderness just distal to the left knee. Normal DP and PT pulses bilaterally. Feet are warm dry and intact although dirty. Skin: Well perfused. Back: Normal appearance. No tenderness to palpation of the thoracic or lumbar spine. No pelvic instability or pain. <Lisa Doyle MD - Last Filed: 07/03/23 19:55> Const: Vital Signs, click to edit/add: Vital Signs - 24 hr 07/03/23 17:44 07/03/23 18:55 07/03/23 19:00 Temperature 97.7 F Pulse Rate 77 75 Pulse Rate [Right Pulse Oximeter] 78 Respiratory Rate 18 Blood Pressure Blood Pressure [Ri ght Upper Arm] 154/80 H Pulse Oximetry 98 97 98 Oxygen Delivery Me thod Room Air 07/03/23 19:02 07/03/23 19:03 07/03/23 19:15 Temperature Pulse Rate 78 74 75 Pulse Rate [Right Pulse Oximeter] Respiratory Rate Blood Pressure 147/76 H Blood Pressure [Ri ght Upper Arm] Pulse Oximetry 100 99 97 Oxygen Delivery Me thod 07/03/23 19:30 07/03/23 19:32 07/03/23 19:32 Temperature Pulse Rate 76 73 73 Pulse Rate [Right Pulse Oximeter] Respiratory Rate 16 Blood Pressure 146/71 H 146/71 H Blood Pressure [Ri ght Upper Arm] Pulse Oximetry 95 97 97 Oxygen Delivery Me thod 07/03/23 19:45 07/03/23 20:00 07/03/23 20:02 Temperature Pulse Rate 92 79 79 Pulse Rate [Right Pulse Oximeter] Respiratory Rate 16 Blood Pressure 151/79 H Blood Pressure [Ri ght Upper Arm] Pulse Oximetry 96 99 99 Oxygen Delivery Me thod 07/03/23 20:15 07/03/23 20:30 07/03/23 20:32 Temperature Pulse Rate 83 86 85 Pulse Rate [Right Pulse Oximeter] Respiratory Rate 16 Blood Pressure 148/76 H Blood Pressure [Ri ght Upper Arm] Pulse Oximetry 99 97 98 Oxygen Delivery Me thod 07/03/23 20:43 Temperature 97.5 F L Pulse Rate Pulse Rate [Right Pulse Oximeter] Respiratory Rate 16 Blood Pressure 135/70 Blood Pressure [Ri ght Upper Arm] Pulse Oximetry Oxygen Delivery Me thod <Lisa Doyle MD - Last Filed: 07/03/23 19:55> Vital Signs, click to edit/add: Vital Signs - 24 hr 07/03/23 17:44 07/03/23 18:55 07/03/23 19:00 Temperature 97.7 F Pulse Rate 77 75 Pulse Rate [Right Pulse Oximeter] 78 Respiratory Rate 18 Blood Pressure Blood Pressure [Ri ght Upper Arm] 154/80 H Pulse Oximetry 98 97 98 Oxygen Delivery Me thod Room Air 07/03/23 19:02 07/03/23 19:03 07/03/23 19:15 Temperature Pulse Rate 78 74 75 Pulse Rate [Right Pulse Oximeter] Respiratory Rate Blood Pressure 147/76 H Blood Pressure [Ri ght Upper Arm] Pulse Oximetry 100 99 97 Oxygen Delivery Me thod 07/03/23 19:30 07/03/23 19:32 07/03/23 19:32 Temperature Pulse Rate 76 73 73 Pulse Rate [Right Pulse Oximeter] Respiratory Rate 16 Blood Pressure 146/71 H 146/71 H Blood Pressure [Ri ght Upper Arm] Pulse Oximetry 95 97 97 Oxygen Delivery Me thod 07/03/23 19:45 07/03/23 20:00 07/03/23 20:02 Temperature Pulse Rate 92 79 79 Pulse Rate [Right Pulse Oximeter] Respiratory Rate 16 Blood Pressure 151/79 H Blood Pressure [Ri ght Upper Arm] Pulse Oximetry 96 99 99 Oxygen Delivery Me thod 07/03/23 20:15 07/03/23 20:30 07/03/23 20:32 Temperature Pulse Rate 83 86 85 Pulse Rate [Right Pulse Oximeter] Respiratory Rate 16 Blood Pressure 148/76 H Blood Pressure [Ri ght Upper Arm] Pulse Oximetry 99 97 98 Oxygen Delivery Me thod 07/03/23 20:43 Temperature 97.5 F L Pulse Rate Pulse Rate [Right Pulse Oximeter] Respiratory Rate 16 Blood Pressure 135/70 Blood Pressure [Ri ght Upper Arm] Pulse Oximetry Oxygen Delivery Me thod <Naman Solo MD - Last Filed: 07/03/23 20:50> Course Course ED Course: Patient received 75 mcg of fentanyl in the ambulance another 0.5 mg of Dilaudid upon arrival. X-ray of the lower extremity was done showing a tib-fib fracture. Consultation with our orthopedic team was done: The recommend transfer to a trauma center given the severity of the fracture. Head CT was done: This was unremarkable. 0.5 mg of Dilaudid was repeated. Patient was accepted to [facility]. However she requested to go to [facility] instead. Process to transfer to [facility] is underway. Care transferred to Dr. Solo. <Lisa Doyle MD - Last Filed: 07/03/23 19:55> Reevaluation(s) Time of Reevaluation #1: 20:49 <Naman Solo MD - Last Filed: 07/03/23 20:50> Reevaluation #1: Patient was accepted by [facility] , transfer to the ER, Dr. Hunter accepting. I then placed the patient in a U strap from there ankle to their mid thigh. And also bolstered with that knee immobilizer. Patient tolerated this well, pulses were checked postprocedure, and normal DP and posterior tibial she is able to wiggle her toes. There were no complications <Naman Solo MD - Last Filed: 07/03/23 20:50> Vital Signs Vital signs: Initial Vital Signs Temperature 97.7 F 07/03/23 17:44 Temperature Source Temporal Artery Scan 07/03/23 17:44 Pulse Rate 78 07/03/23 17:44 Pulse Rhythm Regular 07/03/23 17:44 Pulse Strength 3+ Normal 07/03/23 17:44 Respiratory Rate 18 07/03/23 17:44 Blood Pressure 154/80 H 07/03/23 17:44 Blood Pressure Mean 104 07/03/23 17:44 Blood Pressure Position Supine 07/03/23 17:44 Pulse Oximetry 98 07/03/23 17:44 Oxygen Delivery Method Room Air 07/03/23 17:44 Vital Signs Temperature 97.7 F 07/03/23 17:44 Pulse Rate 78 07/03/23 17:44 Respiratory Rate 18 07/03/23 17:44 Blood Pressure 154/80 H 07/03/23 17:44 Pulse Oximetry 98 07/03/23 17:44 Oxygen Delivery Method Room Air 07/03/23 17:44 Temperature 97.5 F L 07/03/23 20:43 Pulse Rate 85 07/03/23 20:32 Respiratory Rate 16 07/03/23 20:43 Blood Pressure 135/70 07/03/23 20:43 Pulse Oximetry 98 07/03/23 20:32 Oxygen Delivery Method Room Air 07/03/23 17:44 <Lisa Doyle MD - Last Filed: 07/03/23 19:55> Initial Vital Signs Temperature 97.7 F 07/03/23 17:44 Temperature Source Temporal Artery Scan 07/03/23 17:44 Pulse Rate 78 07/03/23 17:44 Pulse Rhythm Regular 07/03/23 17:44 Pulse Strength 3+ Normal 07/03/23 17:44 Respiratory Rate 18 07/03/23 17:44 Blood Pressure 154/80 H 07/03/23 17:44 Blood Pressure Mean 104 07/03/23 17:44 Blood Pressure Position Supine 07/03/23 17:44 Pulse Oximetry 98 07/03/23 17:44 Oxygen Delivery Method Room Air 07/03/23 17:44 Vital Signs Temperature 97.7 F 07/03/23 17:44 Pulse Rate 78 07/03/23 17:44 Respiratory Rate 18 07/03/23 17:44 Blood Pressure 154/80 H 07/03/23 17:44 Pulse Oximetry 98 07/03/23 17:44 Oxygen Delivery Method Room Air 07/03/23 17:44 Temperature 97.5 F L 07/03/23 20:43 Pulse Rate 85 07/03/23 20:32 Respiratory Rate 16 07/03/23 20:43 Blood Pressure 135/70 07/03/23 20:43 Pulse Oximetry 98 07/03/23 20:32 Oxygen Delivery Method Room Air 07/03/23 17:44 <Naman Solo MD - Last Filed: 07/03/23 20:50> Medications Administered Medications: Discontinued Medications Generic Name Dose Route Start Last Admin Trade Name Zena PRN Reason Stop Dose Admin Hydromorphone HCl 0.5 mg 07/03/23 18:08 07/03/23 18:20 Hydromorphone 0.5 Mg/0.5 Ml Inj IVP 07/03/23 18:09 0.5 mg ONCE ONE Administration Hydromorphone HCl 0.5 mg 07/03/23 19:46 07/03/23 19:58 Hydromorphone 0.5 Mg/0.5 Ml Inj IVP 07/03/23 19:47 0.5 mg ONCE ONE Administration Hydromorphone HCl 0.5 mg 07/03/23 19:56 07/03/23 20:01 Hydromorphone 0.5 Mg/0.5 Ml Inj IVP 07/03/23 19:57 0.5 mg ONCE ONE Administration Midazolam HCl 1 mg 07/03/23 20:11 07/03/23 20:27 Midazolam Hcl 1 Mg/Ml Inj IVP 07/03/23 20:12 1 mg ONCE ONE Administration <Lisa Doyle MD - Last Filed: 07/03/23 19:55> Discontinued Medications Generic Name Dose Route Start Last Admin Trade Name Zena PRN Reason Stop Dose Admin Hydromorphone HCl 0.5 mg 07/03/23 18:08 07/03/23 18:20 Hydromorphone 0.5 Mg/0.5 Ml Inj IVP 07/03/23 18:09 0.5 mg ONCE ONE Administration Hydromorphone HCl 0.5 mg 07/03/23 19:46 07/03/23 19:58 Hydromorphone 0.5 Mg/0.5 Ml Inj IVP 07/03/23 19:47 0.5 mg ONCE ONE Administration Hydromorphone HCl 0.5 mg 07/03/23 19:56 07/03/23 20:01 Hydromorphone 0.5 Mg/0.5 Ml Inj IVP 07/03/23 19:57 0.5 mg ONCE ONE Administration Midazolam HCl 1 mg 07/03/23 20:11 07/03/23 20:27 Midazolam Hcl 1 Mg/Ml Inj IVP 07/03/23 20:12 1 mg ONCE ONE Administration <Naman Solo MD - Last Filed: 07/03/23 20:50> Medical Decision Making Imaging Data CT scan - head: Attestation: I have reviewed the pertinent imaging results. <Lisa Doyle MD - Last Filed: 07/03/23 19:55> Radiologist's impression: Procedure(s): CT head/brain wo con Accession Number(s): [id number] cc: Lilli Chacon M.D.; Lisa Doyle M.D.~ For Patients: As a result of the Cures Act, medical imaging exams and procedure reports are released immediately into your electronic medical record. You may view this report before your referring provider. If you have questions, please contact your health care provider. Indication: Fall Technique: Noncontrast head CT Comparison: No comparison Findings: Generalized mild parenchymal volume loss periventricular hypo lucencies probably reflect chronic small vessel ischemic change. Axial noncontrast images through the brain parenchyma demonstrates no acute intracranial hemorrhage or mass. No midline shift. No abnormal extra-axial air or fluid collections are seen. Skull and scalp are unremarkable. Impression: No acute intracranial hemorrhage or mass. <Lisa Doyle MD - Last Filed: 07/03/23 19:55> Tib-fib: Attestation: I have reviewed the pertinent imaging results. <Lisa Doyle MD - Last Filed: 07/03/23 19:55> Radiologist's impression: Procedure(s): XR tibia fibula LT 2V Accession Number(s): [id number] cc: Lilli Chacon M.D.; Lisa Doyle M.D.~ For Patients: As a result of the Cures Act, medical imaging exams and procedure reports are released immediately into your electronic medical record. You may view this report before your referring provider. If you have questions, please contact your health care provider. Indication: Fall, deformations Comparison: None available. Technique: AP and lateral views left proximal tibia were obtained. Findings: Markedly comminuted fracture of the proximal tibia with depressed impaction injury of the lateral tibial plateau. Additional impaction fracture of the proximal fibula is appreciated. Marked proximal pretibial soft tissue swelling. Impression: Comminuted impaction fracture of the proximal tibia including the lateral tibial plateau with involvement of the tibiofemoral joint space. Moderate soft tissue swelling. <Lisa Doyle MD - Last Filed: 07/03/23 19:55> Discharge Plan Discharge Clinical Impression: Fracture tibia/fibula <Lisa Doyle MD - Last Filed: 07/03/23 19:55> Patient Disposition: Xfer Other <Lisa Doyle MD - Last Filed: 07/03/23 19:55> Condition: Unchanged <Lisa Doyle MD - Last Filed: 07/03/23 19:55> Additional Instructions: Patient will be transferred to [facility] by [facility] ambulance. She is placed in a knee immobilizer with you protection. I discussed the case with Dr. Ness from orthopedics at [facility], he accepted the patient, patient was accepted to the ER, through Dr. Hunter . <Lisa Doyle MD - Last Filed: 07/03/23 19:55> Activity Level: Light activity <Lisa Doyle MD - Last Filed: 07/03/23 19:55> Light activity <Naman Solo MD - Last Filed: 07/03/23 20:50> Prescriptions: No Action levothyroxine 100 mcg tablet 100 mcg PO DAILY pravastatin 40 mg tablet 40 mg PO DAILY <Lisa Doyle MD - Last Filed: 07/03/23 19:55> Stand Alone Forms: MyHealth Info Instructions <Lisa Doyle MD - Last Filed: 07/03/23 19:55>
--- NOTE | 2023-07-03 18:12 | CRLHL7_ITS ---
For Patients: As a result of the Century Cures Act, medical imaging exams and procedure reports are released immediately into your electronic medical record. You may view this report before your referring provider. If you have questions, please contact your health care provider. Indication: Fall Technique: Noncontrast head CT Comparison: No comparison Findings: Generalized mild parenchymal volume loss periventricular hypo lucencies probably reflect chronic small vessel ischemic change. Axial noncontrast images through the brain parenchyma demonstrates no acute intracranial hemorrhage or mass. No midline shift. No abnormal extra-axial air or fluid collections are seen. Skull and scalp are unremarkable. Impression: No acute intracranial hemorrhage or mass. Fall Please note that all CT scans at this facility use dose modulation, iterative reconstruction, and/or weight-based dosing when appropriate to reduce radiation dose to as low as reasonably achievable. Dictated by Angella Liu MD @ 07/03/2023 7:10:38 PM (Electronically Signed)
[2023-07-03] MEDS: HYDROmorphone 0.5 mg/0.5 ml inj IVP ×3 (18:20→20:01)
--- OUTSIDE RECORDS SUMMARY | 2023-07-03 18:29 | XMS_ITS | Encounter Summary ---
Author Organization [facility] Address [address] [place] [address] Care Team Providers Care Sales Attendant Name Role Phone Lilli Chacon M.D. Primary Care Provider [phone]- [phone] Reason for Visit * Outpatient (Routine) - Closed Specialty Diagnoses / Procedures Referred By Contscott t Referred To Contact Diagnoses Pain Chest Wall Procedures PM Trigger point injection Lilli Chacon M.D. [address] [place] [address] [facility] Referral ID Status Reason Start Date Expiration Date Visits Re quested Visits Authorized [id number] Closed 04/08/2023 04/07/2024 1 1 Encounter Details Date Type Department Care Team (Late st Contact Info) Description 05/03/2023 1:30 PM CDT Procedure visit Division of Pain Medicine in [place], [place] [address] [place] [address] Eva Velazco M.D. [address] [place] [address] Pain Chest Wall Social History Tobacco Use Types Packs/Day Years Used Date Smoking Tobacco: Former Cigarettes 1 2002 Smokeless Tobacco: Never Alcohol Use Standard Drinks/Week Comments Yes 2 (1 standard drink = 0.6 oz pur e alcohol) Humiliation, Afraid, Rape, and Kick questionnair e Answer Date Recorded Within the last year, have y ou been afraid of your partner or ex-partner? No 09/13/2021 Within the last year, have y ou been humiliated or emotionally abused in other ways by your partner or ex-partner? No Within the last year, have y ou been kicked, hit, slapped, or otherwise physically hurt by your partner or ex-partner? No 09/13/2021 Within the last year, have y ou been raped or forced to have any kind of sexual activity by your partner or ex-partner? No 09/13/2021 Social Connection and Isolation Panel [NHANES] A nswer Date Recorded In a typical week, how many times do you talk on the phone with family, friends, or neighbors? Once a week 09/14/19 How often do you get togethe r with friends or relatives? Once a week 09/13/2021 How often do you attend chur ch or church services? 1 to 4 times per year 09/13/2021 Do you belong to any clubs o r organizations such as orthodox groups, unions, fraternal or athletic groups, or school groups? No 09/13/2021 How often do you attend meet ings of the clubs or organizations you belong to? Never 09/13/2021 Are you , , di vorced, , never , or living with a partner? 09/13/2021 AUDIT-C Answer Date Recorded Q1: How often do you have a drink containing alcohol? 4 or more times a week 09/13/2021 Q2: How many drinks containi ng alcohol do you have on a typical day when you are drinking? 1 or 2 2 Q3: How often do you have si x or more drinks on one occasion? Never 09/13/2021 Overall Financial Resource Strain (CARDIA) Answe r Date Recorded How hard is it for you to pa y for the very basics like food, housing, medical care, and heating? Not hard at all 10/28/2022 PHQ-2 Answer Date Recorded PHQ-2 Score 2 01/21/2023 [facility] - Occupational Stress Questionnaire Answer Date Recorded Do you feel stress - tense, restless, nervous, or anxious, or unable to sleep at night because your mind is troubled all the time - these days? Very much 03/21/2021 Exercise Vital Sign Answer Date Recorde d On average, how many days pe r week do you engage in moderate to strenuous exercise (like a brisk walk)? 5 days 10/28/2022 On average, how many minutes do you engage in exercise at this level? 50 min 10/28/2022 Hunger Vital Sign Answer Date Recorded Within the past 12 months, y ou worried that your food would run out before you got the money to buy more. Never true 10/29/19 Within the past 12 months, t he food you bought just didn't last and you didn't have money to get more. Never true 10/28/2022 PRAPARE - Transportation Answer Date Re corded In the past 12 months, has l ack of transportation kept you from medical appointments or from getting medications? No 10/09 In the past 12 months, has l ack of transportation kept you from meetings, work, or from getting things needed for daily living? No 10/28/2022 Depression Answer Date Recor ded PHQ-9 Total Score (max 27) 5 01/21 Nutrition Answer Date Recorded On average, how many serving s of fruits and vegetables do you eat per day (serving size is equal to 1 cup or approximately the size of a tennis ball)? 3-5 10/28/2022 Dental Answer Date Recorded Dental: Regular Dentist Yes 01/09/20 Employment Answer Date Recorded Employment status Employed and actively working without restrictions 10/28/2022 Housing Stability Answer Date Recorded What is your living situation today? I have a [facility] place to live 10/28/2022 Education Answer Date Recorded What is the highest level of school you have completed or the highest degree you have received? Doctorate 09/05/2018 Sex and Gender Information Value Date Recorded Sex Assigned at Female 12/19/2016 7:29 PM [employer]ORNING [employer]ODUCER Gender Identity Female 12/19/2016 7:29 PM [employer]ORNING NEWS [employer]ODUCER Sexual Orientation Lesbian or [place] 03/12/2020 12 :23 PM [employer]ORNING [employer]ODUCER documented as of this encounter Procedure Notes * Eva Velazco M.D. - 05/03/2023 1:30 PM CDTAssociated Order(s): PM Trigger point injection Pre-Procedure Diagnose(s): Pain Chest Wall Post-Procedure Diagnose(s): Pain Chest Wall PM Trigger point injection (right cervical and left cervical) Performed by: Eva Velazco M.D. Authorized by: Lilli Chacon M.D. Care team members present 1. Louisa Garcia L.P.N. 2. Junaid Stack D.O. PROCEDURE SUMMARY Indication: Chest Wall Pain Pre procedure pain score: 2/10 Soft tissue site: right cervical and left cervical Cervical: Cervical position: supine Preparation: Patient was prepped and draped in usual sterile fashion Needle size: 25 G Needle length: 1.5 in Number of muscles injected: 1 or 2 muscles Trunk muscles: left latissimus dorsi, right latissimus dorsi, left erector spinae longissimus and right erector spinae longissimus IMAGING Ultrasound image guidance used to localize target, identify at risk structures, and dynamically used to direct therapy to the target. Image(s) acquired and saved. INJECTED MEDICATIONS The injected medication(s) listed was divided equally between the identified injection location(s) Total volume of injectate (mL): 5 Total steroid in injectate (mg): 40 2 mL BUPivacaine 0.5 % (5 mg/mL) 2 mL lidocaine 20 mg/mL 40 mg triamcinolone acetonide 40 mg/mL PROCEDURE DETAILS Cervical procedure description: The patient was placed in the appropriate position. Prior to the procedure, the appropriate cervical region was examined to determine the location of the trigger point(s) and optimal needle path. Thereafter, a needle was advanced into the trigger point(s) and after negative aspiration, the medication was injected. Following the injection, the needle was withdrawn. The patient tolerated the procedure well and there were no apparent complications. After an appropriate amount of observation, the patient was dismissed from the clinic in good condition under their own power. CONSENT Consent obtained: written (Risks, benefits and alternatives were discussed and a written Informed Consent was obtained. Please see Informed Consent form for further details.) UNIVERSAL PROTOCOL All relevant documentation and testing were reviewed and available. All required blood products, implants, devices and or special equipment were made available as applicable. Pre-procedure verification was conducted and the correct site was marked if required. A fire risk assessment was done as applicable. The procedural time-out to verify correct patient, correct side/site, and procedure was conducted prior to performing the procedure and confirmed in a procedural pause. PRE-PROCEDURE DETAILS Appropriate hand hygiene, gown, cap, mask, protective eyewear, sterile gloves, skin preparation, sterile drape, and strict aseptic technique were utilized as applicable for the procedure. Skin preparation: chlorhexidine SEDATION / ANESTHESIA Anesthesia method: none POST-PROCEDURE DETAILS Complications: no apparent complications ATTESTATION STATEMENT A resident or fellow participated in the procedure, and the absence management consultant was present for the entire procedure. OPERATIVE NOTE INFORMATION Specimens: 0 Drains: 0 Estimated blood loss: 0 Implants: 0 documented in this encounter Plan of Treatment Upcoming Encounters Date Type Department Care Team (Late st Contact Info) Description 08/25/2023 10:00 AM CDT Appointment Department of Radiology in [place], [place] [address] [address] Lilli Chacon M.D. [address] [address] documented as of this encounter Procedures Procedure Name Priority Date/Time Associated Diagnosis Comments SD US GUIDE PLC NDL Routine 05/03/2023 1 :30 PM CDT Pain Chest Wall SD INJ TRIGGER PNT<=2 MUS Routine 05/03/2023 1:30 PM CDT Pain Chest Wall documented in this encounter Results * SD INJ TRIGGER PNT<=2 MUS, SD US GUIDE PLC NDL (05/03/2023 1:30 PM CDT) Narrative [facility] - 05/03/2023 1:30 PM CDT Eva Velazco M.D. ? 05/03/2023 ??1:52 PM PM Trigger point injection (right cervical and left cervical) Performed by: Eva Velazco M.D. Authorized by: Lilli Chacon M.D. ?? Care team members present 1. Louisa Garcia L.P.N. 2. Junaid Stack D.O. PROCEDURE SUMMARY ?? Indication: Chest Wall Pain Pre procedure pain score: 2/10 Soft tissue site: right cervical and left cervical Cervical: Cervical position: supine Preparation: Patient was prepped and draped in usual sterile fashion ?? Needle size: 25 G Needle length: 1.5 in Number of muscles injected: 1 or 2 muscles Trunk muscles: left latissimus dorsi, right latissimus dorsi, left erector spinae longissimus and right erector spinae longissimus IMAGING ??Ultrasound image guidance used to localize target, identify at risk structures, and dynamically used to direct therapy to the target. Image(s) acquired and saved. INJECTED MEDICATIONS The injected medication(s) listed was divided equally between the identified injection location(s) ?? Total volume of injectate (mL): ??5 Total steroid in injectate (mg): ??40 ?? 2 mL BUPivacaine 0.5 % (5 mg/mL) 2 mL lidocaine 20 mg/mL 40 mg triamcinolone acetonide 40 mg/mL PROCEDURE DETAILS Cervical procedure description: The patient was placed in the appropriate position. Prior to the procedure, the appropriate cervical region was examined to determine the location of the trigger point(s) and optimal needle path. Thereafter, a needle was advanced into the trigger point(s) and after negative aspiration, the medication was injected. Following the injection, the needle was withdrawn. ??The patient tolerated the procedure well and there were no apparent complications. ??After an appropriate amount of observation, the patient was dismissed from the clinic in good condition under their own power. ?? CONSENT Consent obtained: written (Risks, benefits and alternatives were discussed and a written Informed Consent was obtained. Please see Informed Consent form for further details.) UNIVERSAL PROTOCOL All relevant documentation and testing were reviewed and available. All required blood products, implants, devices and or special equipment were made available as applicable. Pre-procedure verification was conducted and the correct site was marked if required. A fire risk assessment was done as applicable. The procedural time-out to verify correct patient, correct side/site, and procedure was conducted prior to performing the procedure and confirmed in a procedural pause. PRE-PROCEDURE DETAILS Appropriate hand hygiene, gown, cap, mask, protective eyewear, sterile gloves, skin preparation, sterile drape, and strict aseptic technique were utilized as applicable for the procedure. ?? Skin preparation: chlorhexidine SEDATION / ANESTHESIA Anesthesia method: none POST-PROCEDURE DETAILS ?? Complications: no apparent complications ATTESTATION STATEMENT A resident or fellow participated in the procedure, and the absence management consultant was present for the entire procedure. OPERATIVE NOTE INFORMATION Specimens: 0 Drains: 0 Estimated blood loss: 0 Implants: 0 Lilli Chacon M.D. PROCEDURE/MINOR CASTILLO RGICAL ORDERABLES [facility]AL NA documented in this encounter Visit Diagnoses Diagnosis Pain Chest Wall documented in this encounter Administered Medications Inactive Administered Medications - up to 3 most recent administrations Medication Order MAR Action Action Date Dose Rate Site BUPivacaine 0.5 % (5 mg/mL) injection 2 mL (MARCAINE) 2 mL, injection, One-Time Injection, Starting on Tue05/03/23 at 1330, For 1 dose Given 05/03/2023 1:30 PM CDT 2 mL lidocaine 20 mg/mL injection 2 mL (XYLOCAINE) 2 mL, injection, One-Time Injection, Starting on Tue05/03/23 at 1330, For 1 dose Given 05/03/2023 1:30 PM CDT 2 mL triamcinolone acetonide injection 40 mg (KENALOG-40) 40 mg, injection, One-Time Injection, Starting on Tue05/03/23 at 1330, For 1 dose Given 05/03/2023 1:30 PM CDT 40 mg documented in this encounter Additional Health Concerns Assessment Noted Time PHQ-9 Depression Total Score: 5 01/22/20 23 12:09 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 [address] [address] PCP - General Family Medicine 05/11/21 documented as of this encounter
--- OUTSIDE RECORDS SUMMARY | 2023-07-03 18:29 | XMS_ITS | Referral Summary ---
Author Organization [facility] Address [address] [place] [address] Care Team Providers Care Wet Inspector Optical Glass Name Role Phone Lilli Chacon M.D. Primary Care Provider [phone]- [phone] Source Comments Patient records contain information from all sites at [facility]. For routine questions regarding patient records, call [phone] during business hours, M-F 8:00 AM - 5:00 PM Central Time. Record requests for emergency care only can be directed to [phone] at any time.[facility] Encounters Date Type Department Care Team Description 06/17/2023 8:15 AM CDT Comprehensive Visit Department of Ophthalmology in [place], [place] [address] [phone] Tyshawn Puga M.D. Cataract Senile Nuclear Sclerosis Bilateral (Primary Dx); Dry Eye Syndrome Bilateral 06/16/2023 8:30 AM CDT Office Visit Department of Family Medicine, [facility], in [place], [place] [address] [place] [phone] Lilli Chacon M.D. Pain Chest Wall (Primary Dx); Obesity Body Mass Index 30-39.9 Adult; Hypercholesterolemi a; Hypothyroidism; Hyperlipidemia Mixed; Iron Deficiency Anemia Screening Exam; Screening Osteoporosis 05/03/2023 1:30 PM CDT Procedure visit Division of Pain Medicine in [place], [place] [address] [place] [address] Eva Velazco M.D. Pain Chest Wall 05/03/2023 12:45 PM CDT Comprehensive Visit Division of Pain Medicine in [place], [place] [address] [place] [phone] Eva Srivastava APRN, C.N.P., M.S.N. Pain Chest Wall (Primary Dx) 04/07/2023 Clinical Communication Department of [facility], [facility], in [place], [place] [address], [place] [phone] Lilli Chacon M.D. Communication 04/07/2023 Clinical Communication Department of [facility], [facility], in [place], [place] [address] [place] [phone] Lilli Chacon M.D. from Last 3 Months Allergies Active Allergy Reactions Criticality Noted Date Comments Chlorine Rash 06/04/2020 Medications Medication Sig Dispensed Refills Start Date End Date Status EPINEPHrine (EpiPen) 0.3 mg/0.3 mL injection syringeIndicati ons:Allergy Personal History Inject 0.3 mL (0.3 mg total) intramuscularly as needed for anaphylaxis. Inject into the thigh. 1 each 1 2 Active triamcinolone (KENALOG) 0.1 % cream Apply to affected area 1-2 times daily as needed. Avoid face and groin. 240 g 3 3 Active levothyroxine (SYNTHROID, LEVOTHROID) 100 mcg tabletIndicatio ns:Hypothyroidi sm Take 1 tablet (100 mcg total) by mouth daily. 90 tablet 3 3 Active ibuprofen (MOTRIN) 800 mg tabletIndicatio ns:Pain Chest Take 1 tablet (800 mg total) by mouth 3 (three) times a day as needed for pain (pain. take with food.). 90 tablet 3 Active buPROPion (WELLBUTRIN SR) 100 mg 12 hr tablet Take 1 tablet by mouth 2 (two) times a day. 4 Active naltrexone (DEPADE) 50 mg tablet Take 0.5 tablets (25 mg total) by mouth 2 (two) times a day. 4 Active pravastatin (PRAVACHOL) 80 mg tabletIndicatio ns:Hypercholest erolemia Take 1 tablet (80 mg total) by mouth daily. 90 tablet 3 4 Active naltrexone (DEPADE) 50 mg tablet Take 0.5 tablets (25 mg total) by mouth daily. 45 tablet 2 3 06/16/19 24 Discontinued pravastatin (PRAVACHOL) 40 mg tablet TAKE ONE TABLET BY MOUTH EVERY DAY 90 tablet 3 3 06/16/19 24 Discontinued Active Problems Problem Noted Date Diagnosed Date Obesity Body Mass Index 30-39.9 Adult 06/09/2021 Hypercholesterolemia 02/02/2018 Regurgitation Mitral 02/02/2018 Hypothyroidism 12/15/2015 Depression Major 03/07/2015 Overview: Depression Major NOS Anxiety Generalized Disorder 03/07/2015 Gastroesophageal Reflux Disease NOS 03/07/2015 Family History Coronary Artery Disease 5 Polyp Colon 09/25/2014 Resolved Problems Problem Noted Date Diagnosed Date Resolved Date Anxiety 03/25/2021 08/23/2022 Dilated Aortic Root 01/26/2018 08/24/19 23 Palpitations 10/08/2014 06/16/2023 Bursitis Trochanteric Bilateral 10/24/2006 08/23/2022 Hypothyroidism Acquired 03/11/200510/08 Immunizations Name Administration Dates Next Due DTaP (Infanrix, Tripedia) 10/18/2008 H1N1 All Forms 02/14/2009 HZV (ZOSTAVAX) 12/18/2015,10/19/2012 Influenza (IM) Preservative Free 10/19/2012,10/08 Influenza, Injectable, Mdck, Quadrivalent 2020 Influenza, Quadrivalent, Adj uvanted, Preservative Free 12/30/2021,2019 Influenza, Seasonal, Injectable 11/10/2009 Influenza, Unspecified 12/15/2015,10/07/2014 PCV13 12/15/2015 PPSV23 12/25/2016 RZV (SHINGRIX) 01/24/2019,10/13/2018 SARS-COV-2 (COVID-19) - MODE RNA BIVALENT(Discontinued) 09/03/2022,10/28/2021 SARS-COV-2 (COVID-19) - MODERNA(Discontinued) 04/09/2020 TICK-BORNE ENCEPHALITIS (ADULT) 03/09/2022 Td Preservative Free (TENIVAC, DECAVAC) 01/27/20 18 influenza high dose (65 year s or older) (PF) 12/14/2018,01/26/2018,12/25/2016 Social History Tobacco Use Types Packs/Day Years Used Date Smoking Tobacco: Former Cigarettes 2002 Smokeless Tobacco: Never Tobacco Cessation:Counseling Given: Not Answered Alcohol Use Standard Drinks/Week Comments Yes 2 [...] 09/13/2021 How often do you attend chur or uatsdin services? 1 to 4 times per year 09/13/2021 Do you belong to any clubs o r organizations such as yazidism groups, unions, fraternal or athletic groups, or [...] when you are drinking? 1 or 2 Q3: How often do you have si x or more drinks on one occasion? Never 09/13/2021 Overall Financial Resource Strain (CARDIA) Answe r Date Recorded How hard is it for you to pa y for the very basics like food, housing, medical care, and heating? Not hard at all 10/28/2022 PHQ-2 Answer Date Recorded PHQ-2 Score 4 06/16/2023 [facility] - Occupational Stress [...] Recor ded PHQ-9 Total Score (max 27) 9 06/15 Nutrition Answer Date Recorded On average, how [...] your living situation today? [facility] 10/28/2022 Education Answer Date Recorded What is the highest level of school you have completed or the highest degree you have received? Doctorate 09/05/2018 Sex and Gender Information Value Date Recorded Sex Assigned at Female 12/19/2016 7:29 PM FRINGE WEAVER Gender Identity Female 12/19/2016 7:29 PM FRINGE WEAVER Sexual Orientation Lesbian or Turcios 03/12/2020 12 :23 PM FRINGE WEAVER Last Filed Vital Signs Vital Sign Reading Time Taken Comments Blood Pressure 127/81 06/16/2023 8:09 AM CDT Pulse 73 06/16/2023 8:09 AM CDT Temperature 36.2 ??C (97.2 ??F) 06/16/2023 8:09 AM CD T Respiratory Rate 15 09/23/2022 10:54 AM CDT Oxygen Saturation 93% 09/23/2022 10:54 AM CDT Inhaled Oxygen Concentration - - Weight 80 kg (176 lb 5.9 oz) 06/16/2023 8:09 AM CDT Height 160.5 cm (5' 3.19) 03/08/2023 8:15 AM CS T Body Mass Index 31.06 03/08/2023 8:15 AM FRINGE WEAVER Plan of Treatment Upcoming Encounters Date Type Department Care Team (Late st Contact Info) Description 08/25/2023 10:00 AM CDT Appointment Department of Radiology in [place], [place] [address] [phone] Lilli Chacon M.D. [address] [phone] Procedures Procedure Name Priority Date/Time Associated Diagnosis Comments [place] US GUIDE PLC NDL Routine 05/03/2023 1 :30 PM CDT Pain Chest Wall NJ INJ TRIGGER PNT<=2 MUS Routine 05/03/2023 1:30 PM CDT Pain Chest Wall BI BREAST SCREENING BILATERAL WITH TOMOSYNTHESIS RAD - Routine (most inpatients and all outpatients) 02/09/2023 8:55 AM FRINGE WEAVER HEMOGLOBIN A1C, B Routine 02/02/2023 2:2 8 PM FRINGE WEAVER Gain Weight LIPID PANEL, S Routine 02/02/2023 2:28 PM FRINGE WEAVER Gain Weight THYROID-STIMULATING HORMONE-SENSITIVE (S-TSH) Routine 02/02/2023 2:28 PM FRINGE WEAVER Hypothyroidism HCV AB SCRN W/REFLEX TO HCV PCR, S Routine 03/17/2022 10:17 AM FRINGE WEAVER Screening Test Laboratory COLONOSCOPY Routine 11/26/2019 3:23 PM CDT Screening Cancer Colon from Last 3 Months or Most Recently Relevant to Health Maintenance Results * NJ INJ TRIGGER PNT<=2 MUS, [place] US GUIDE PLC NDL (05/03/2023 1:30 PM CDT) Narrative MMODAL - 05/03/2023 1:30 PM CDT Eva Velazco M.D. ? 05/03/2023 ??1:52 PM PM Trigger point injection (right cervical and left cervical) Performed by: Eva Velazco M.D. Authorized by: Lilli Chacon M.D. ?? Care team members present 1. Louisa Garcia, LPrakashPPrakashNPrakash 2. Junaid Stack D.O. PROCEDURE SUMMARY ?? [...] fellow participated in the procedure, and the aerodynamic consultant was present for the entire procedure. OPERATIVE NOTE INFORMATION Specimens: 0 Drains: 0 Estimated blood loss: 0 Implants: 0 Lilli Chacon M.D. PROCEDURE/MINOR CASTILLO RGICAL ORDERABLES MMODAL NA * (ABNORMAL) Lipid Panel (02/02/2023 2:28 PM FRINGE WEAVER) Triglycerides 69 mg/dL 02/02/2023 4:41 PM FRINGE WEAVER OWAT Comment: ----REFERENCE VALUE---- Normal: <150 mg/dL Borderline High: 150-199 mg/dL High: 200-499 mg/dL Very High: > or =500 mg/dL Cholesterol, Total 230(H) mg/dL 2022 4:41 PM FRINGE WEAVER OWAT Comment: ----REFERENCE VALUE---- Desirable: < 200 mg/dL Borderline High: 200 - 239 mg/dL High: > or = 240 mg/dL Cholesterol, LDL, Calculated 118 mg/dL 02/02/2023 4:41 PM FRINGE WEAVER OWAT Comment: ----REFERENCE VALUE---- Desirable: <100 mg/dL Above Desirable: 100-129 mg/dL Borderline High: 130-159 mg/dL High: 160-189 mg/dL Very High: >=190 mg/dL ----ADDITIONAL INFORMATION---- LDL cholesterol calculated using the Siu/NIH equation. Cholesterol, HDL 100 >=50 mg/dL 02/03/20 4:41 PM FRINGE WEAVER OWAT Cholesterol, Non-HDL, Calculated 130 mg/dL 02/02/2023 4:41 PM FRINGE WEAVER [employer]AT Comment: ----REFERENCE VALUE---- Desirable: <130 mg/dL Above Desirable: 130-159 mg/dL Borderline High: 160-189 mg/dL High: 190-219 mg/dL Very High: > or =220 mg/dL Fasting (8 HR or more) yes 02/02/2023 3:40 PM FRINGE WEAVER OWAT Blood (Blood, Venous) 02/02/2023 2:28 PM FRINGE WEAVER 02/02/2023 3:40 PM FRINGE WEAVER Katie Corona M.D. LAB BLOOD ADD-ON [facility] [address] [place] [address], [place] OWAT [facility] in [place] [address] [place] [address] * S-TSH (Thyroid-Stimulating Hormone - Sensitive) (02/02/2023 2:28 PM FRINGE WEAVER) TSH, Sensitive 0.3 0.3 - 4.2 mIU/L 02/02/2023 4:37 PM FRINGE WEAVER OWAT Blood (Blood, Venous) 02/02/2023 2:28 PM FRINGE WEAVER 02/02/2023 3:40 PM FRINGE WEAVER Lilli Chacon M.D. LAB BLOOD ADD-ON Performing Organization Address City/[facility] Co de Phone Number [facility] [address] [place] [address], [facility] in [place] [address] [place] [phone] * Hemoglobin A1c (02/02/2023 2:28 PM FRINGE WEAVER) Hemoglobin A1c, B 5.2 4.2 - 5.6 % 02/02/2023 4:33 PM FRINGE WEAVER OWAT Blood (Blood, Venous) 02/02/2023 2:28 PM FRINGE WEAVER 02/02/2023 3:40 PM FRINGE WEAVER Katie Corona M.D. LAB BLOOD ADD-ON Performing Organization Address City/[facility] Co de Phone Number [facility] [address] [place] [address], [facility] in [place] [address] [place] [phone] * HCV Ab Scrn w/Reflex to HCV PCR, Serum (03/17/2022 10:17 AM FRINGE WEAVER) HCV Ab Screen, S Negative Negative 03/18/2022 8:10 AM FRINGE WEAVER [facility] Comment:Eozunk-qt-uasypy rat io is <1.00. Blood (Blood, Venous) 03/17/2022 10:17 AM FRINGE WEAVER 03/18/2022 7:06 AM FRINGE WEAVER Lilli Chacon M.D. LAB MICROBIOLOGY - BLOOD ORDERABLES [facility] [address] [place] [address] [facility] [address] [place] [id number] from Last 3 Months or Most Recently Relevant to Health Maintenance Care Teams Wet Inspector Optical Glass Relationship Specialty Start Date End Date Lilli Chacon M.D. [address] [place] [phone] PCP - General Family Medicine 05/11/21
--- OUTSIDE RECORDS SUMMARY | 2023-07-03 18:29 | XMS_ITS | Encounter Summary ---
Author Organization [facility] Address [address] [place] [address] Care Team Providers Care Investigator Narcotics Name Role Phone Lilli Chacon M.D. Primary Care Provider +1- [phone] Reason for Referral * Outpatient (Routine) - Closed Specialty Diagnoses / Procedures Referred By Contac t Referred To Contact Diagnoses Pain Chest Wall Procedures PM Trigger point injection Lilli Chacon M.D. [address] [place] [phone] [facility] Referral ID Status Reason Start Date Expiration Date Visits Re quested Visits Authorized [id number] Closed 04/08/2023 04/07/2024 1 1 B WHEEL OPERATOR Reason for Visit * Reason Onset Date Comments Communication 04/07/2023 Encounter Details Date Type Department Care Team (Late st Contact Info) Description 04/07/2023 Clinical Communication Department of Family Medicine, [facility], in [place], [place] [address] [place] [phone] Lilli Chacon M.D. [address] [place] [phone] Communication Social History Tobacco Use Types Packs/Day Years [...] How often do you attend chur or advent services? 1 to 4 times per year 09/13/2021 Do you belong to any clubs o r organizations such as amish groups, unions, fraternal or athletic groups, or [...] Answer Date Recorded PHQ-2 Score 2 01/21/2023 [facility] [place] [facility] - Occupational Stress Questionnaire Answer Date Recorded [...] your living situation today? I have a [facility] place to live 10/28/2022 Education Answer Date Recorded What is the highest level of school you have completed or the highest degree you have received? Doctorate 09/05/2018 Sex and Gender Information Value Date Recorded Sex Assigned at Female 12/19/2016 7:29 PM SCRUB WHEEL OPERATOR Gender Identity Female 12/19/2016 7:29 PM SCRUB WHEEL OPERATOR Sexual Orientation Lesbian or Turcios 03/12/2020 12 :23 PM SCRUB WHEEL OPERATOR documented as of this encounter Miscellaneous Notes * Telephone Encounter - Alyson Perry - 04/08/2023 1:29 PM CST Images from the original note were not included. Shreya is aware and pleased. Thanks again. Alyson 04/08/23 B WHEEL OPERATOR * Addendum Note - Lilli Chacon M.D. - 04/08/2023 12:40 PM CSTAddended by: LILLI CHACON on: 04/08/2023 12:40 PM Modules accepted: Orders B WHEEL OPERATOR * Addendum Note - Alyson Perry - 04/08/2023 12:00 PM CSTAddended by: ALYSON PERRY on: 04/08/2023 12:00 PM Modules accepted: Orders B WHEEL OPERATOR * Addendum Note - Lilli Chacon M.D. - 04/08/2023 11:45 AM CSTAddended by: LILLI CHACON on: 04/08/2023 11:45 AM Modules accepted: Orders B WHEEL OPERATOR * Telephone Encounter - Alyson Perry - 04/08/2023 11:[address] Chacon Calling back dept- [id number]. Order pended to this encounter. Thank you, Alyson Referrals 04/08/23 B WHEEL OPERATOR * Addendum Note - Lilli Chacon M.D. - 04/08/2023 10:40 AM CSTAddended by: LILLI CHACON on: 04/08/2023 10:40 AM Modules accepted: Orders B WHEEL OPERATOR * Telephone Encounter - Alyson Perry - 04/08/2023 10:21 AM CST Can we get an order for Pain Medicine for: chest wall trigger point injection please. Thank you, Alyson Referrals 04/08/23 Spoke with patient she doesn't want consult she just wants the injection. RST PM triage. Does referring provider want PM consult to evaluate for possible chest wall injections (which one likely happen on a different visit) or if they order chest wall trigger point injections we could do preprocedure evaluation. B WHEEL OPERATOR * Telephone Encounter - Lilli Chacon M.D. - 04/08/2023 7:37 AM SCRUB WHEEL OPERATOR Yes, it is for a chest wall trigger point injection please. Thank you. B WHEEL OPERATOR documented in this encounter Plan of Treatment Upcoming Encounters Date Type Department Care Team (Late st Contact Info) Description 08/25/2023 10:00 AM CDT Appointment Department of Radiology in [place], [place] [address] [place] [phone] Lilli Chacon M.D. [address] [place] [phone] documented as of this encounter Results * [place] INJ TRIGGER PNT<=2 MUS, [place] US GUIDE PLC NDL (05/03/2023 1:30 PM [...] fellow participated in the procedure, and the senior environmental consultant was present for the entire procedure. OPERATIVE NOTE INFORMATION Specimens: 0 Drains: 0 Estimated blood loss: 0 Implants: 0 Lilli Chacon M.D. PROCEDURE/MINOR CASTILLO RGICAL ORDERABLES MMODAL NA documented in this encounter Visit Diagnoses Diagnosis Pain Chest Wall- Primary Pain Chest Wall documented in this encounter Additional Health Concerns Assessment Noted Time PHQ-9 Depression Total Score: 5 01/22/20 23 12:09 AM SCRUB WHEEL OPERATOR documented as of this encounter Care Teams Investigator Narcotics Relationship Specialty Start Date End Date Lilli Chacon M.D. [address] [phone] PCP - General Family Medicine 05/11/21 documented as of this encounter
--- OUTSIDE RECORDS SUMMARY | 2023-07-03 18:29 | XMS_ITS ---
Author Organization [facility] Address [address] [place] [address] Care Team Providers Care Supervisor Plate Forming Name Role Phone Unavailable Unavailable Unavailable Surgery Details Not on file Complications Check Surgery Details section. Procedure Estimated Blood Loss Check Surgery Details section. Procedure Findings Check Surgery Details section. Procedure Specimens Taken Check Surgery Details section.
--- OUTSIDE RECORDS SUMMARY | 2023-07-03 18:29 | XMS_ITS | Encounter Summary ---
Author Organization [facility] Address [address] [place] [address] Care Team Providers Care Small Piece Cutter Name Role Phone Lilli Chacon M.D. Primary Care Provider +1- [phone] Reason for Referral * Outpatient (Routine) - Authorized Specialty Diagnoses / Procedures Referred By Contac t Referred To Contact Diagnoses Screening Osteoporosis Procedures BMD Bone Density Spine Hips Lilli Chacon M.D. [address], [place] [address] [facility] Region Referral ID Status Reason Start Date Expiration Date V isits Requested Visits Authorized [id number] Authorized 06/16/2023 06/15/2024 1 1 Reason for Visit * Reason Comments Follow-up * Outpatient (Routine) - Closed Specialty Diagnoses / Procedures Referred By Contac t Referred To Contact Family Medicine Lilli Chacon M.D. [address], [place] [address] [facility] Region Referral ID Status Reason Start Date Expiration Date Visits Re quested Visits Authorized [id number] Closed 01/21/2023 01/20/2026 1 1 Encounter Details Date Type Department Care Team (Late st Contact Info) Description 06/16/2023 8:30 AM CDT Office Visit Department of Family Medicine, [facility], in [place], [place] [address] [phone] Lilli Chacon M.D. [address], [place] [address] Pain Chest Wall (Primary Dx); Obesity Body Mass Index 30-39.9 Adult; Hypercholesterolemia; Hypothyroidism; Hyperlipidemia Mixed; Iron Deficiency Anemia Screening Exam; Screening Osteoporosis Social History Tobacco Use Types Packs/Day Years [...] often do you attend chur ch or orthodoxy services? 1 to 4 times per year 09/13/2021 Do you belong to any clubs o r organizations such as latter day groups, unions, fraternal or athletic groups, or [...] Answer Date Recorded PHQ-2 Score 4 06/16/2023 [facility] of Occupat ional Health - Occupational Stress [...] money to buy more. Never true 10/29/19 23 Within the past 12 months, t he [...] your living situation today? I have a [facility] place to live 10/28/2022 Education Answer Date Recorded What is the highest level of school you have completed or the highest degree you have received? Doctorate 09/05/2018 Sex and Gender Information Value Date Recorded Sex Assigned at Female 12/19/2016 7:29 PM DIE CUTTER Gender Identity Female 12/19/2016 7:29 PM DIE CUTTER Sexual Orientation Lesbian or Turcios 03/12/2020 12 :23 PM DIE CUTTER documented as of this encounter Last Filed Vital Signs Vital Sign Reading Time Taken Comments Blood Pressure 127/81 06/16/2023 8:09 AM CDT Pulse 73 06/16/2023 8:09 AM CDT Temperature 36.2 ??C (97.2 ??F) 06/16/2023 8:09 AM CD T Respiratory Rate - - Oxygen Saturation - - Inhaled Oxygen Concentration - - Weight 80 kg (176 lb 5.9 oz) 06/16/2023 8:09 AM CDT Height - - Body Mass Index 31.06 03/08/2023 8:15 AM DIE CUTTER documented in this encounter Progress Notes * Lilli Chacon M.D. - 06/16/2023 8:30 AM CDT Images from the original note were not included. SUBJECTIVE CHIEF COMPLAINT/REASON FOR VISIT Multiple concerns. HISTORY OF PRESENT ILLNESS Shreya Arriazaec Stella is a 72 y.o. female who presents to the clinic today for a discussion of multiple concerns. She is seen with her partner Maura today. I am listed as patient's PCP. As per patient today: She has started on the [employer] program for weight loss. Has lost roughly 2 kilograms. Congratulated. Has been trying to be active. Recently returned from [place] and [place]. Did significant walking there. Is currently seeing a physician through the [employer] program in his on naltrexone and bupropion. Has enough medicine now. We updated her doses. We will need refills in the future. Body mass index is 31.06 kg/m??. Weight: 80 kg (06/16/2023 8:09 AM) 2. Was seen by Physical Medicine and rehab for chest wall pain. Had injections. States that the pain completely resolved which is very good to hear. At present is not having any symptoms so she will let me know if she ever needs a rereferral in the future. 3. She is wondering about testing or screening for osteoporosis. We reviewed her last DEXA scan which was done in 2017 and which was normal. She would like to do another one which I think is reasonable. Ordered today and she is aware she can schedule that today. 4. We reviewed most recent labs. Patient had elevated lipids. We reviewed her [place] risk score. She is wondering about increasing her pravastatin from 40 milligrams to 80 milligrams a day. This is reasonable. I recommend a recheck of lipids in six months. She would like to do that. Order as below. 5. On review of the chart, I see we have not checked patient's hemoglobin in over nine years. I think it is reasonable to check it again just for routine iron-deficiency screening. Ordered as below to be added to next lab work. Most recent results show the following: Lab Results Component Value Date HGB 13.6 10/08/2014 Lab Results Component Value Date TSH 0.3 02/02/2023 TSH 0.3 02/02/2023 Lab Results Component Value Date HGBA1C 5.2 02/02/2023 HGBA1C 5.2 09/02/2022 Lab Results Component Value Date GLUF 100 (H) 12/15/2015 GLUCOSE 97 02/02/2023 LDLCALC 118 02/02/2023 CREATININE 0.72 02/02/2023 BP Readings from Last 3 Encounters: 06/16/23 127/81 05/03/23 156/86 01/21/23 147/83 Wt Readings from Last 3 Encounters: 06/16/23 80 kg 01/21/23 82.2 kg 10/29/22 79.3 kg Social History Tobacco Use Smoking Status Former Current packs/day: 0.00 Types: Cigarettes Start date: 1971 Quit date: 2002 Years since quittin.3 Smokeless Tobacco Never Scheduled Appointments 06/16/2023 8:30 AM Lilli Chacon M.D. Family Medicine 06/17/2023 8:15 AM Tyshawn Puga M.D. Ophthalmology Lab Results Component Value Date NA 143 02/02/2023 KSERUM 4.7 01/20/2018 KPLASMA 4.9 02/02/2023 CL 106 02/02/2023 CO2 29 12/15/2015 Lab Results Component Value Date CREATININE 0.72 02/02/2023 Lipids 09/02/2022 02/02/2023 9:31 AM 2:28 PM CHOL 232 230 TRIG 85 69 HDL 104 100 LDLCALC 114 118 The 10-year ASCVD risk score (Ethan MALLOY, et al., 2019) is: 11.2% Values used to calculate the score: Age: 72 years Sex: Female Is Non- : No Diabetic: No Tobacco smoker: No Systolic Blood Pressure: 127 mmHg Is BP treated: No HDL Cholesterol: 100 mg/dL Total Cholesterol: 230 mg/dL There are no further concerns at this time. REVIEW OF SYSTEMS Please see HPI for pertinent positives, otherwise rest of ROS negative. CURRENT MEDICATIONS Current Outpatient Medications Medication Sig Dispense Refill naltrexone (DEPADE) 50 mg tablet Take 0.5 tablets (25 mg total) by mouth 2 (two) times a day. buPROPion (WELLBUTRIN SR) 100 mg 12 hr tablet Take 1 tablet by mouth 2 (two) times a day. EPINEPHrine (EpiPen) 0.3 mg/0.3 mL injection syringe Inject 0.3 mL (0.3 mg total) intramuscularly as needed for anaphylaxis. Inject into the thigh. 1 each 1 ibuprofen (MOTRIN) 800 mg tablet Take 1 tablet (800 mg total) by mouth 3 (three) times a day as needed for pain (pain. take with food.). 90 tablet 0 levothyroxine (SYNTHROID, LEVOTHROID) 100 mcg tablet Take 1 tablet (100 mcg total) by mouth daily. 90 tablet 3 pravastatin (PRAVACHOL) 80 mg tablet Take 1 tablet (80 mg total) by mouth daily. 90 tablet 3 triamcinolone (KENALOG) 0.1 % cream Apply to affected area 1-2 times daily as needed. Avoid face and groin. 240 g 3 No current facility-administered medications for this visit. ALLERGIES/CONTRAINDICATIONS Allergies Allergen Reactions Chlorine Rash MEDICAL HISTORY Past Medical History: Diagnosis Date Anxiety 03/25/2021 Bursitis Trochanteric Bilateral 10/24/2006 Cancer Colon Family History Depression Anxiety Dilated Aortic Root (HCC) 01/26/2018 Gastroesophageal Reflux Disease Hernia Hiatal Hypercholesterolemia Hypothyroidism Polyp Colon Polyp Colon Hyperplastic Tuberculosis Personal History as a child OBJECTIVE VITAL SIGNS Vitals: 06/16/23 0809 BP: 127/81 Patient Position: Sitting Pulse: 73 Temp: 36.2 ??C Weight: 80 kg TempSrc: Temporal Body mass index is 31.06 kg/m??. PHYSICAL EXAMINATION Constitutional General: She is not in acute distress. Appearance: Normal appearance. She is obese. She is not ill-appearing, toxic- appearing or diaphoretic. HENT Head: Normocephalic and atraumatic. Nose: No congestion or rhinorrhea. Eyes General: No scleral icterus. Right eye: No discharge. Left eye: No discharge. Conjunctiva/sclera: Conjunctivae normal. Pulmonary Effort: Pulmonary effort is normal. No respiratory distress. Skin Coloration: Skin is not jaundiced or pale. Neurological General: No focal deficit present. Mental Status: She is alert and oriented to person, place, and time. Mental status is at baseline. Psychiatric Attention and Perception: Attention normal. Mood and Affect: Mood normal. Speech: Speech normal. Behavior: Behavior normal. Behavior is cooperative. Thought Content: Thought content normal. Cognition and Memory: Cognition normal. ASSESSMENT / PLAN #1 Pain Chest Wall #2 Obesity Body Mass Index 30-39.9 Adult #3 Hypercholesterolemia - pravastatin (PRAVACHOL) 80 mg tablet; Take 1 tablet (80 mg total) by mouth daily., Starting Yolanda 06/16/2023, NormalIncreased dose #4 Hypothyroidism #5 Hyperlipidemia Mixed - Lipid Panel; Future; Expected date: 12/17/2023 #6 Iron Deficiency Anemia Screening Exam - CBC with Differential, Blood; Future; Expected date: 06/16/2023 #7 Screening Osteoporosis - BMD Bone Density Spine Hips; Future; Expected date: 06/16/2023 Other orders - Family Medicine office visit (clinic) Patient is aware that I will be moving to [place] in July. I will be in touch with any results. Thereafter I am happy to see her in [facility] or she will be transferred to a new physician here at [facility]. She is happy with the plan above. We discussed all the above testing, treatment and plans. The patient is aware to return to clinic or the emergency department if they develop any worrisome symptoms, or have any medical concerns. They can contact me via the portal or telephone if they would like as well. My contact information was given via the printed AVS today. They left in good condition and did not have any further questions prior to discharge. Lilli Chacon M.D. documented in this encounter Plan of Treatment Upcoming Encounters Date Type Department Care Team (Late st Contact Info) Description 08/25/2023 10:00 AM CDT Appointment Department of Radiology in [place], [place] [address] [place] [phone] Lilli Chacon M.D. [address] [place] [phone] Scheduled Orders Name Type Priority Associated Diagnoses Orde r Schedule CBC with Differential, Blood Lab Routine Iron Deficiency Anemia Screening Exam Expected: 06/16/2023 (Approximate), Expires: 09/15/2024 BMD Bone Density Spine Hips Imaging RAD - Routine (most inpatients and all outpatients) Screening Osteoporosis Expected: 06/16/2023, Expires: 09/15/2024 Lipid Panel Lab Routine Hyperlipidemia Mixed Expected: 12/17/2023 (Approximate), Expires: 09/15/2024 documented as of this encounter Visit Diagnoses Diagnosis Pain Chest Wall- Primary Obesity Body Mass Index 30-39.9 Adult Hypercholesterolemia Hypothyroidism Hyperlipidemia Mixed Iron Deficiency Anemia Screening Exam Screening Osteoporosis documented in this encounter Additional Health Concerns Assessment Noted Time PHQ-9 Depression Total Score: 9 06/16/19 24 7:14 AM CDT documented as of this encounter Care Teams Small Piece Cutter Relationship Specialty Start Date End Date Lilli Chacon M.D. [address] [phone] PCP - General Family Medicine 05/11/21 documented as of this encounter
--- OUTSIDE RECORDS SUMMARY | 2023-07-03 18:29 | XMS_ITS | Clinical Summary ---
Author Organization [email or web address] Address [place], [place] [address] Care Team Providers Care Racket Stringer Name Role Phone Lilli Chacon MD Primary Care Provider + Allergies No known active allergies Medications Medication Sig Dispensed Refills Start Date End Date Status buPROPion (WELLBUTRIN XL) 300 mg Extended-Release tablet Take 300 mg by mouth every morning. Active CALCIUM CARB/VIT D3/MINERALS (CALCIUM-VITAMIN D ORAL) Take 1 Tab by mouth once daily. Active CHROMIUM ORAL Take by mouth. Active CINNAMON BARK (CINNAMON ORAL) Take 1,000 mg by mouth 2 times daily. Active DOXEPIN HCL (DOXEPIN ORAL) Take 50 mg by mouth once daily. Active ESCITALOPRAM ORAL Take 20 mg by mouth once daily. Active [id number] IET CB25 ORAL Take by mouth. Active CHROMIUM/HERBAL COMPLEX NO.238 (GREEN TEA, W/MET.ENHAN.BLEND, ORAL) Take by mouth. Active levothyroxine (SYNTHROID) 100 mcg tablet Take 100 mcg by mouth before breakfast. Active ko-eo-pmkwwd #[id number] 100 mg tab Take 1 Tab by mouth once daily. Active NALTREXONE HCL (NALTREXONE ORAL) Take 10 mg by mouth once daily. Active omeprazole (PRILOSEC) 20 mg Delayed-Release capsule Take 20 mg by mouth once daily before a meal. Active Family History Medical History Relation Name Comments Cancer-colon Maternal Aunt Cancer No Family History Cancer-breast No Family History Cancer-ovarian No Family History Cancer-prostate No Family History Relation Name Status Comments Maternal Aunt Social History Tobacco Use Types Packs/Day Years Used Date Smoking Tobacco: Former Smokeless Tobacco: Never Sex and Gender Information Value Date Recorded Sex Assigned at Not on file Gender Identity Not on file Sexual Orientation Not on file Obstetrics History Last Filed Vital Signs Vital Sign Reading Time Taken Comments Blood Pressure 119/68 10/04/2016 12:30 PM CDT Pulse 72 10/04/2016 12:30 PM CDT Temperature 36.6 ??C (97.9 ??F) 10/04/2016 9:55 AM CD T Respiratory Rate 20 10/04/2016 12:30 PM CDT Oxygen Saturation 98% 10/04/2016 12:30 PM CDT Inhaled Oxygen Concentration - - Weight 80 kg (176 lb 5.9 oz) 10/04/2016 9:40 AM CDT Height 160 cm (5' 3) 10/04/2016 9:40 AM CDT Body Mass Index 31.24 10/04/2016 9:40 AM CDT Plan of Treatment Health Maintenance Due Date Last Done Comments Tdap 1961 Depression screening for age 12+ 1962 Hepatitis C screening for ag e 18-79 1968 Tetanus booster 1970 Colonoscopy through age 75 10/23/1995 Lipids for age 45-75 10/23/1995 Zoster (shingles) series for age 50+ (1 of 2) 2000 DEXA/DXA scan for age 65+ 10/23/2015 Pneumococcal series for age 65+ (1 of 1 - PCV) 10/23/2015 BMI (ht and wt on same day) for age 18+ 09/16/2017 09/16/2016 COVID-19 vaccine series ( season) 2022 05/14/2021, 12/02/2020, 05/09/2020, Additional history exists Influenza for age 65+ 10/09/2023 Mammogram for age 45-75 02/10/2024 02/09/19 24, 03/09/2022, 02/24/2021, Additional history exists Procedures Procedure Name Priority Date/Time Associated Diagnosis Comments XR MAMMO ANSELMO BILAT SCREEN Routine 02/09/2023 8:55 AM LEAD RAMP SERVICE MAN Visit for screening mammogram from Last 3 Months or Most Recently Relevant to Health Maintenance Results * XR MAMMO ANSELMO BILAT SCREEN (02/09/2023 8:55 AM LEAD RAMP SERVICE MAN) Anatomical Region Laterality Modality BREASTS, Breast Left, Breast Right Bilateral Mammography Impressions 02/09/2023 10:21 AM LEAD RAMP SERVICE MAN ??There is no radiographic evidence for malignancy. ??Recommend annual mammograms. MAMMOGRAM ASSESSMENT: ??ACR 1 Negative PATIENTS: You will also receive a letter with your examination results in an easy to read format. ??If you have questions about your results, please contact your referring provider. Narrative 02/09/2023 10:21 AM LEAD RAMP SERVICE MAN For Patients: As a result of the Century Cures Act, medical imaging exams and procedure reports are released immediately into your electronic medical record. You may view this report before your referring provider. If you have questions, please contact your health care provider. XR MAMMO ANSELMO BILAT SCREEN [[id number]] CLINICAL HISTORY: ??This is an asymptomatic 72 y.o. patient. INDICATION FOR EXAM: Mammogram Screening. TECHNIQUE: CC & MLO views were obtained. ??This study was evaluated with the assistance of Computer-Aided Detection. Breast Tomosynthesis was used in interpretation. COMPARISON FILM: Yes 03/09/22 [facility] 02/24/21 [facility] FINDINGS: ??The breasts have scattered areas of fibroglandular density. There are no dominant masses, suspicious micro calcifications or areas of architectural distortion. Lilli Chacon MD MAMMO from Last 3 Months or Most Recently Relevant to Health Maintenance Advance Directives * Full Code (Latest Code Status on File) Date Activated Date Inactivated Comments 10/04/2016 9:28 AM 10/04/2016 2:51 PM Care Teams Racket Stringer Relationship Specialty Start Date End Date Lilli Chacon MD [address] [place] [phone] PCP - General Family Practice 02/08/23
--- OUTSIDE RECORDS SUMMARY | 2023-07-03 18:29 | XMS_ITS | Encounter Summary ---
Author Organization [facility] Address [address] [place] [address] Care Team Providers Care Relief Operator Name Role Phone Lilli Chacon M.D. Primary Care Provider +1- [phone] Encounter Details Date Type Department Care Team (Late st Contact Info) Description 04/07/2023 Clinical Communication Department of Family Medicine, [facility], in [place], [place] [address] [place] [phone] Lilli Chacon M.D. [address] [place] [phone] Social History Tobacco Use Types Packs/Day Years Used Date Smoking Tobacco: Former Cigarettes 2002 Smokeless Tobacco: Never Alcohol Use Standard [...] friends, or neighbors? Once a week 09/14/19 22 How often do you get togethe r with friends or relatives? Once a week 09/13/2021 How often do you attend chur ch or hoahaoism services? 1 to 4 times per year 09/13/2021 Do you belong to any clubs o r organizations such as zoroastrian groups, unions, fraternal or athletic groups, or [...] Answer Date Recorded PHQ-2 Score 2 01/21/2023 [facility] - Occupational Stress Questionnaire Answer Date [...] your living situation today? I have a [facility] place to live 10/28/2022 Education Answer Date Recorded What is the highest level of school you have completed or the highest degree you have received? Doctorate 09/05/2018 Sex and Gender Information Value Date Recorded Sex Assigned at Female 12/19/2016 7:29 PM PRIMARY SUBSTANCE ABUSE COUNSELOR Gender Identity Female 12/19/2016 7:29 PM PRIMARY SUBSTANCE ABUSE COUNSELOR Sexual Orientation Lesbian or Turcios 03/12/2020 12 :23 PM PRIMARY SUBSTANCE ABUSE COUNSELOR documented as of this encounter Plan of Treatment Upcoming Encounters Date Type Department Care Team (Late st Contact Info) Description 08/25/2023 10:00 AM CDT Appointment Department of Radiology in [place], [place] [address], [place] [address] Lilli Chacon M.D. [address] [place] [phone] documented as of this encounter Visit Diagnoses Diagnosis Pain Chest Wall- Primary documented in this encounter Additional Health Concerns Assessment Noted Time PHQ-9 Depression Total Score: 5 01/22/20 23 12:09 AM PRIMARY SUBSTANCE ABUSE COUNSELOR documented as of this encounter Care Teams Relief Operator Relationship Specialty Start Date End Date Lilli Chacon M.D. [address] [place] [phone] PCP - General Family Medicine 05/11/21 documented as of this encounter
--- OUTSIDE RECORDS SUMMARY | 2023-07-03 18:29 | XMS_ITS | Clinical Summary ---
Author Organization [facility] Address [address] [place] [address] Care Team Providers Care Boat Rental Clerk Name Role Phone Lilli Chacon M.D. Primary Care Provider +1- [phone] Source Comments Patient records contain information from all sites at [facility]. For routine questions regarding patient records, call [phone] during business hours, M-F 8:00 AM - 5:00 PM Central Time. Record requests for emergency care only can be directed to [phone] at any time.[facility] Allergies Active Allergy Reactions Criticality Noted Date [...] Trochanteric Bilateral 10/24/2006 08/23/2022 Hypothyroidism Acquired 03/11/200510/08 Encounters Date Type Department Care Team Description 06/17/2023 8:15 AM CDT Comprehensive Visit Department of Ophthalmology in [place], [place] [address] [place] [address] Tyshawn Puga M.D. Cataract Senile Nuclear Sclerosis Bilateral (Primary Dx); Dry Eye Syndrome Bilateral 06/16/2023 8:30 AM CDT Office Visit Department of Family Medicine, [facility], in [place], [place] [address] [place] [phone] Lilli Chacon M.D. Pain Chest Wall (Primary Dx); Obesity Body Mass Index 30-39.9 Adult; Hypercholesterolemi a; Hypothyroidism; Hyperlipidemia Mixed; Iron Deficiency Anemia Screening Exam; Screening Osteoporosis 05/03/2023 1:30 PM CDT Procedure visit Division of Pain Medicine in [place], [place] [address] [place] [address] Mayela Velazco M.D. Pain Chest Wall 05/03/2023 12:45 PM CDT Comprehensive Visit Division of Pain Medicine in [place], [place] [address] [place] [address] Eva Srivastava APRN, C.N.P., M.S.N. Pain Chest Wall (Primary Dx) 04/07/2023 Clinical Communication Department of Family Medicine, [facility], in [place], [place] [address] [phone] Lilli Chacon M.D. Communication 04/07/2023 Clinical Communication Department of Family Medicine, [facility], in [place], [place] [address] [place] [phone] Lilli Chacon M.D. from Last 3 Months Immunizations Name Administration Dates Next Due DTaP [...] (65 year s or older) (PF) 12/14/2018,01/26/2018,12/25/2016 Family History Medical History Relation Name Comments Alcohol abuse Brother 1 brian COPD Brother 1 brian Tuberculosis Brother 1 brian Alcohol abuse Brother 2 joaquín ANGIE disease Brother 2 joaquín Hyperlipidemia Brother 2 joaquín Alcohol abuse Father Brian Depression Father Brian Lymphoma Father Brian Diagnosed at ag e 76 Hyperlipidemia Maternal Grandmother Grace Hypertension Maternal Grandmother Grace Cataracts Mother Hannah Heart disease Mother Hannah Hyperlipidemia Mother Hannah Hypertension Mother Hannah Hyperthyroidism Mother Hannah Stroke Mother Hannah at age 87 Thyroid disease Mother Hannah Tuberculosis Mother Hannah Colon cancer Mother's Sister Aga Diagnosed at age 62 Alcohol abuse Sister 1 mayela Tuberculosis Sister 2 tayla Relation Name Status Comments Brother 1 brian Alive Brother 2 joaquín Alive Father Brian (Age 76) Maternal Grandmother Grace Mother Hannah (Age 84) Mother's Sister Aga Sister 1 mayela Alive Sister 2 tayla Alive Social History Tobacco Use Types Packs/Day Years [...] often do you attend chur ch or oriental orthodox services? 1 to 4 times per year 09/13/2021 Do you belong to any clubs o r organizations such as restorationist groups, unions, fraternal or athletic groups, or [...] Answer Date Recorded PHQ-2 Score 4 06/16/2023 [facility] of Occupat ional [facility] - Occupational Stress Questionnaire Answer Date [...] your living situation today? [facility] 10/28/2022 Education Answer Date Recorded What is the highest level of school you have completed or the highest degree you have received? Doctorate 09/05/2018 Sex and Gender Information Value Date Recorded Sex Assigned at Female 12/19/2016 7:29 PM NEWSCAST PRODUCER Gender Identity Female 12/19/2016 7:29 PM NEWSCAST PRODUCER Sexual Orientation Lesbian or Turciso 03/12/2020 12 :23 PM NEWSCAST PRODUCER Last Filed Vital Signs Vital Sign Reading [...] Body Mass Index 31.06 03/08/2023 8:15 AM NEWSCAST PRODUCER Plan of Treatment Upcoming Encounters Date Type Department Care Team (Late st Contact Info) Description 08/25/2023 10:00 AM CDT Appointment Department of Radiology in [place], [place] [address] [place] [address] Lilli Chacon M.D. [address] [place] [address] Health Maintenance Due Date Last Done Comments CT Colonography 1950 Cologuard 1950 Depression Monitoring (PHQ-9) 10/17/2023 06/16/2023 Thyroid Stimulating Hormone (TSH) test for thyroid function 02/03/2024 02/02/2023, 02/02/2023, 01/21/2023, Additional history exists Mammogram 02/10/2024 02/09/2023, 04/2023, 03/09/2022, Additional history exists Visit: Annual, age 65+ (or Medicare and <65) 06/15/2024 06/16/2023 Fasting Glucose for Diabetes Screening 02/02/2026 02/02/2023, 02/02/2023, 09/02/2022, Additional history exists DTaP,Tdap,and Td Vaccines (3 - Tdap) 01/27/2028 01/26/2018, 10/18/2008 Lipid (Cholesterol) Screening 02/03/2028, 09/02/2022, 10/18/2019, Additional history exists Colonoscopy 11/25/2029 11/26/2019, 11/07, 10/03/2014, Additional history exists Colorectal Cancer Surveillance 11/25/2029 Pneumococcal vaccine (65+ years) Completed 12/26/19 17, 12/15/2015 Zoster Vaccines Completed 01/24/2019, 07/2018, 12/18/2015, Additional history exists Hepatitis C Screening Completed 03/17/2022 Influenza Vaccine Completed 12/09/2022, , 10/28/2020, Additional history exists COVID-19 Vaccine Completed 05/06/2023, , 09/03/2022, Additional history exists Fall Risk Screen (Annual) Completed 06/16/2023 Procedures Procedure Name Priority Date/Time Associated Diagnosis Comments AK US GUIDE PLC NDL Routine 05/03/2023 1 :30 PM CDT Pain Chest Wall AK INJ TRIGGER PNT<=2 MUS Routine 05/03/2023 1:30 PM CDT Pain Chest Wall BI BREAST SCREENING BILATERAL WITH TOMOSYNTHESIS RAD - Routine (most inpatients and all outpatients) 02/09/2023 8:55 AM NEWSCAST PRODUCER HEMOGLOBIN A1C, B Routine 02/02/2023 2:2 8 PM NEWSCAST PRODUCER Gain Weight LIPID PANEL, S Routine 02/02/2023 2:28 PM NEWSCAST PRODUCER Gain Weight THYROID-STIMULATING HORMONE-SENSITIVE (S-TSH) Routine 02/02/2023 2:28 PM NEWSCAST PRODUCER Hypothyroidism HCV AB SCRN W/REFLEX TO HCV PCR, S Routine 03/17/2022 10:17 AM NEWSCAST PRODUCER Screening Test Laboratory COLONOSCOPY Routine 11/26/2019 3:23 PM CDT Screening Cancer Colon from Last 3 Months or Most Recently Relevant to Health Maintenance Results * AK INJ TRIGGER PNT<=2 MUS, AK US GUIDE PLC NDL (05/03/2023 1:30 PM CDT) Narrative [facility]ODAL - 05/03/2023 1:30 PM CDT Mayela Velazco M.D. ? 05/03/2023 ??1:52 PM PM Trigger point injection (right cervical and left cervical) Performed by: Mayela Velazco M.D. Authorized by: Lilli Chacon M.D. [...] fellow participated in the procedure, and the wireless sales consultant was present for the entire procedure. OPERATIVE NOTE INFORMATION Specimens: 0 Drains: 0 Estimated blood loss: 0 Implants: 0 Lilli Chacon M.D. PROCEDURE/MINOR CASTILLO RGICAL ORDERABLES MMODAL NA * (ABNORMAL) Lipid Panel (02/02/2023 2:28 PM NEWSCAST PRODUCER) Triglycerides 69 mg/dL 02/02/2023 4:41 PM NEWSCAST PRODUCER [facility]AT Comment: ----REFERENCE VALUE---- Normal: <150 mg/dL Borderline High: 150-199 mg/dL High: 200-499 mg/dL Very High: > or =500 mg/dL Cholesterol, Total 230(H) mg/dL 2022 4:41 PM NEWSCAST PRODUCER [employer]AT Comment: ----REFERENCE VALUE---- Desirable: < 200 mg/dL Borderline High: 200 - 239 mg/dL High: > or = 240 mg/dL Cholesterol, LDL, Calculated 118 mg/dL 02/02/2023 4:41 PM NEWSCAST PRODUCER [employer]AT Comment: ----REFERENCE VALUE---- Desirable: <100 mg/dL Above Desirable: 100-129 mg/dL Borderline High: 130-159 mg/dL High: 160-189 mg/dL Very High: >=190 mg/dL ----ADDITIONAL INFORMATION---- LDL cholesterol calculated using the Siu/NIH equation. Cholesterol, HDL 100 >=50 mg/dL 02/03/20 4:41 PM NEWSCAST PRODUCER OWAT Cholesterol, Non-HDL, Calculated 130 mg/dL 02/02/2023 4:41 PM NEWSCAST PRODUCER [employer] Comment: ----REFERENCE VALUE---- Desirable: <130 mg/dL Above Desirable: 130-159 mg/dL Borderline High: 160-189 mg/dL High: 190-219 mg/dL Very High: > or =220 mg/dL Fasting (8 HR or more) yes 02/02/2023 3:40 PM NEWSCAST PRODUCER OWAT Blood (Blood, Venous) 02/02/2023 2:28 PM NEWSCAST PRODUCER 02/02/2023 3:40 PM NEWSCAST PRODUCER Katie Corona M.D. LAB BLOOD ADD-ON Performing Organization Address City/[facility]/ZIP Co de Phone Number [facility] [address] [place] [address], [facility] [address] [place] [address] * S-TSH (Thyroid-Stimulating Hormone - Sensitive) (02/02/2023 2:28 PM NEWSCAST PRODUCER) TSH, Sensitive 0.3 0.3 - 4.2 mIU/L 02/02/2023 4:37 PM NEWSCAST PRODUCER OWAT Blood (Blood, Venous) 02/02/2023 2:28 PM NEWSCAST PRODUCER 02/02/2023 3:40 PM NEWSCAST PRODUCER Lilli Chacon M.D. LAB BLOOD ADD-ON Performing Organization Address [facility] Co de Phone Number [facility] [address] [place] [address], [place] [facility] [address] [place] [address] * Hemoglobin A1c (02/02/2023 2:28 PM NEWSCAST PRODUCER) Hemoglobin A1c, B 5.2 4.2 - 5.6 % 02/02/2023 4:33 PM NEWSCAST PRODUCER OWAT Blood (Blood, Venous) 02/02/2023 2:28 PM NEWSCAST PRODUCER 02/02/2023 3:40 PM NEWSCAST PRODUCER Katie Corona M.D. LAB BLOOD ADD-ON Performing Organization Address City/[facility] Co de Phone Number [facility] [address] [place] [address], [place] [facility] [facility] [place] [address] [place] [address] * HCV Ab Scrn w/Reflex to HCV PCR, Serum (03/17/2022 10:17 AM NEWSCAST PRODUCER) HCV Ab Screen, S Negative Negative 03/18/2022 8:10 AM NEWSCAST PRODUCER [facility] Comment:Zxhubc-yv-tswlfr rat io is <1.00. Blood (Blood, Venous) 03/17/2022 10:17 AM NEWSCAST PRODUCER 03/18/2022 7:06 AM NEWSCAST PRODUCER Lilli Chacon M.D. LAB MICROBIOLOGY - BLOOD ORDERABLES [facility] [address] [place] [address] [facility] [address] [place] [address] from Last 3 Months or Most Recently Relevant to Health Maintenance Care Teams Boat Rental Clerk Relationship Specialty Start Date End Date Lilli Chacon M.D. [address] [place] [phone] PCP - General Family Medicine 05/11/21
--- OUTSIDE RECORDS SUMMARY | 2023-07-03 18:29 | XMS_ITS | Encounter Summary ---
Author Organization [facility] Address [address] [place] [address] Care Team Providers Care Gage Designer Name Role Phone iLlli Chacon M.D. Primary Care Provider +1- [phone] Encounter Details Date Type Department Care Team (Latest Contact Info) Description 05/03/2023 12:45 PM CDT Comprehensive Visit Division of Pain Medicine in [place], [place] [address] [place] [address] Eva Srivastava, BALBIR, C.N.P., M.S.N. [address] [place] [phone] Pain Chest Wall (Primary Dx) Social History Tobacco Use Types Packs/Day Years [...] How often do you attend chur or hoahaoism services? 1 to 4 times per year 09/13/2021 Do you belong to any clubs o r organizations such as mormonism groups, unions, fraternal or athletic groups, or [...] Answer Date Recorded PHQ-2 Score 2 01/21/2023 [facility] Occupat ional Health - Occupational [...] your living situation today? I have a [facility] place to live 10/28/2022 Education Answer Date Recorded What is the highest level of school you have completed or the highest degree you have received? Doctorate 09/05/2018 Sex and Gender Information Value Date Recorded Sex Assigned at Female 12/19/2016 7:29 PM FILLING OPERATOR Gender Identity Female 12/19/2016 7:29 PM FILLING OPERATOR Sexual Orientation Lesbian or Turcios 03/12/2020 12 :23 PM FILLING OPERATOR documented as of this encounter Last Filed Vital Signs Vital Sign Reading Time Taken Comments Blood Pressure 156/86 05/03/2023 12:29 PM CDT Pulse 75 05/03/2023 12:29 PM CDT Temperature - - Respiratory Rate - - Oxygen Saturation - - Inhaled Oxygen Concentration - - Weight - - Height - - Body Mass Index - - documented in this encounter Progress Notes * Eva Srivastava APRN, C.N.P., M.S.N. - 05/03/2023 12:45 PM CDT PREPROCEDURE EVALUATION ONLY SUBJECTIVE REFERRAL SOURCE Dr. Lilli Chacon Family Medicine CHIEF COMPLAINT / REASON FOR VISIT Shreya Douglas is a 72 y.o. female who presents to the Pain Clinic for a preprocedure evaluation for the consideration of bilateral chest wall trigger point injections with ultrasound guidance. HISTORY OF PRESENT ILLNESS Shreya Douglas has a past medical history significant for depression, anxiety, GERD, Hypothyroidism referred to the Pain Clinic for injection therapy. Initial evaluation for this condition took place with family medicine. The pain is localized to mid anterior chest and is sharp in character. Associated symptoms include some radiation outward to the back. This pain has been intermittent for about 5-6 years. Shreya Douglas denies recent fevers, chills, infections or antibiotics. No allergies to local anesthetic, corticosteroid, or contrast dye. No anticoagulation. Pain score today: 2/10. Pain can increase to 10/10. ROS: specific to procedural intervention. See HPI for details. Other complaints, follow up with Primary Care Provider. History was reviewed including allergies, current medications, and problem list. Allergies Allergen Reactions Chlorine Rash Pain Medications buPROPion (WELLBUTRIN SR) 100 mg 12 hr tablet Take 1 tablet by mouth 2 (two) times a day. ibuprofen (MOTRIN) 800 mg tablet Take 1 tablet (800 mg total) by mouth 3 (three) times a day as needed for pain (pain. take with food.). OBJECTIVE PHYSICAL EXAM GENERAL: Pleasant, 72 y.o. female, in no acute distress. HEAD: Normocephalic and atraumatic. EYES: Pupils 4 mm. Anicteric. LUNGS: Unlabored respirations. SKIN: skin overlying the sternum is absent of erythema, lesions, rashes, or infections. GAIT: Non-antalgic. MUSCULOSKELETAL/SPINE: Palpation about the 4th to 8th intercostal space with pain to palpation along the sternum. 3 spots on the right, 2 spots left. NEURO: STRENGTH: 5/5, 5/5 drone software development engineer strength MENTAL: Alert, oriented, appropriate mood and affect, recent and remote memory intact. IMAGIN03/04/2023 Chest with IV contrast Marked subchondral sclerosis at the sternomanubrial joint (series 6, images 61- 67) and 1st costochondral joints. This finding was also present on the prior exam from 2019 and has increased. Slight irregularity and erosion of the sternomanubrial joint. No acute fracture. Chest wall soft tissues are unremarkable. Probable small cyst/hemangioma in the right liver. IMPRESSION: 1. Marked sclerosis at the sternomanubrial joint and first costochondral joints , increased from the prior exam. 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 2. Stable small pulmonary nodules dating to 2019, should be benign. ASSESSMENT / PLAN Diagnosis Plan 1. Pain Chest Wall Shreya Douglas is a 72 y.o. female with recurrent major depression, hypercholesterolemia, mitral regurg, generalized anxiety disorder, GERD, hypothyroidism, palpitations, BMI of 30-39.9. Findings on evaluation are consistent with myofascial pain (reproducible pain to palpation), possible co stochondritis. MEDICAL DECISION MAKING It is appropriate to proceed with the scheduled ultrasound guided trigger point injections. We havediscussed the risks, benefits, and intended outcomes of these procedures. The patient understands it may take up to 2 weeks to experience significant improvement in pain. Application of ice and avoidance of heat and soaking are recommended for the first 48 hours after the procedure. Showering is appropriate. No contraindications to proceeding. Procedure consent discussed and signed in office. All questions answered to the best of my abilities. FOLLOW UP Referring provider. Total time: 25 minutes PATIENT EDUCATION Ready to learn, no apparent learning barriers were identified; learning preferences included listening. Explained diagnosis and treatment plan; patient expressed understanding of the content. The risk of exposure to COVID-19 within the facility was discussed. All questions pertaining to this situation were answered, and the patient agreed to proceed. documented in this encounter Plan of Treatment Upcoming Encounters Date Type Department Care Team (Late st Contact Info) Description 08/25/2023 10:00 AM CDT Appointment Department of Radiology in [place], [place] [address] [place] [address] Lilli Chacon M.D. [address] [place] [address] documented as of this encounter Visit Diagnoses Diagnosis Pain Chest Wall- Primary documented in this encounter Additional Health Concerns Assessment Noted Time PHQ-9 Depression Total Score: 5 01/22/20 23 12:09 AM FILLING OPERATOR documented as of this encounter Care Teams Gage Designer Relationship Specialty Start Date End Date Lilli Chacon M.D. [address] [phone] PCP - General Family Medicine 05/11/21 documented as of this encounter
--- OUTSIDE RECORDS SUMMARY | 2023-07-03 18:29 | XMS_ITS | Encounter Summary ---
Author Organization [facility] Address [address] [place] [address] Care Team Providers Care Medical Physicist Name Role Phone Lilli Chacon M.D. Primary Care Provider +1- [phone] Reason for Visit * Reason Comments Med Refill Encounter Details Date Type Department Care Team (Late st Contact Info) Description 03/28/2023 Refill Department of Family Medicine, [facility], in [place], [place] [address] [address] Lilli Chacon M.D. [address] [place] [phone] Med Refill Social History Tobacco Use Types Packs/Day Years [...] How often do you attend chur or cheondoism services? 1 to 4 times per year 09/13/2021 Do you belong to any clubs o r organizations such as holiness groups, unions, fraternal or athletic groups, or [...] Answer Date Recorded PHQ-2 Score 2 01/21/2023 [facility] of Occupat ional Health - Occupational [...] your living situation today? I have a [facility] place to live 10/28/2022 Education Answer Date Recorded What is the highest level of school you have completed or the highest degree you have received? Doctorate 09/05/2018 Sex and Gender Information Value Date Recorded Sex Assigned at Female 12/19/2016 7:29 PM POSITION CLASSIFIER Gender Identity Female 12/19/2016 7:29 PM POSITION CLASSIFIER Sexual Orientation Lesbian or Turcios 03/12/2020 12 :23 PM POSITION CLASSIFIER documented as of this encounter Miscellaneous Notes * Telephone Encounter - Mikayla Darby - 03/29/2023 6:53 AM CST Sent 01/21/23. QTY:90 R:3. Refills Remain TION CLASSIFIER documented in this encounter Plan of Treatment Upcoming Encounters Date Type Department Care Team (Late st Contact Info) Description 08/25/2023 10:00 AM CDT Appointment Department of Radiology in [place], [place] [address] [phone] Lilli Chacon M.D. [address] [place] [address] documented as of this encounter Visit Diagnoses Diagnosis Hypothyroidism documented in this encounter Additional Health Concerns Assessment Noted Time PHQ-9 Depression Total Score: 5 01/22/20 23 12:09 AM POSITION CLASSIFIER documented as of this encounter Care Teams Medical Physicist Relationship Specialty Start Date End Date Lilli Chacon M.D. [address] [place] [address] PCP - General Family Medicine 05/11/21 documented as of this encounter
--- OUTSIDE RECORDS SUMMARY | 2023-07-03 18:29 | XMS_ITS | Encounter Summary ---
Author Organization [facility] Address [address] [place] [address] Care Team Providers Care Manager Restaurant Name Role Phone Lilli Chacon M.D. Primary Care Provider +1- [phone] Reason for Referral * Outpatient (Routine) - Authorized Specialty Diagnoses / Procedures Referred By Cortes mak Referred To Contact Procedures OPH General eye exam Tyshawn Puga M.D. [address] [place] [address] [facility] Region Referral ID Status Reason Start Date Expiration Date V isits Requested Visits Authorized [id number] Authorized 06/17/2023 06/16/2024 1 1 Reason for Visit * Reason Comments Eye Exam * Appointment Request (Routine) - Closed Specialty Diagnoses / Procedures Referred By Cortes mak Referred To Contact Ophthalmology Referral ID Status Reason Start Date Expiration Date Visits Re quested Visits Authorized [id number] Closed 04/06/2023 04/05/2024 1 1 Encounter Details Date Type Department Care Team (Latest Contact Info) Description 06/17/2023 8:15 AM CDT Comprehensive Visit Department of Ophthalmology in [place], [place] [address] [place] [address] Tyshawn Puga M.D. [address], [place] [address] Cataract Senile Nuclear Sclerosis Bilateral (Primary Dx); Dry Eye Syndrome Bilateral Social History Tobacco Use Types Packs/Day Years [...] any clubs o r organizations such as pentecostalism groups, unions, fraternal or athletic groups, or [...] Answer Date Recorded PHQ-2 Score 4 06/16/2023 [facility] of Occupat ional Health - Occupational Stress [...] living situation today? I have a [facility] place to live 10/28/2022 Education Answer Date Recorded What is the highest level of school you have completed or the highest degree you have received? Doctorate 09/05/2018 Sex and Gender Information Value Date Recorded Sex Assigned at Female 12/19/2016 7:29 PM STEEL ESTIMATOR Gender Identity Female 12/19/2016 7:29 PM STEEL ESTIMATOR Sexual Orientation Lesbian or Turcios 03/12/2020 12 :23 PM STEEL ESTIMATOR documented as of this encounter Progress Notes * Tyshawn Puga M.D. - 06/17/2023 8:15 AM CDT Shreya Douglas was seen today for Eye Exam #1 Cataract Senile Nuclear Sclerosis Bilateral #2 Dry Eye Syndrome Bilateral Plan: Update glasses as desired. U/v protection. Ocular lubricants twice daily. F/u one year for routine exam or as needed. Cex/ref documented in this encounter Plan of Treatment Upcoming Encounters Date Type Department Care Team (Late st Contact Info) Description 08/25/2023 10:00 AM CDT Appointment Department of Radiology in [place], [place] [address] [phone] Lilli Chacon M.D. [address] [phone] Scheduled Orders Name Type Priority Associated Diagnoses Orde r Schedule OPH General eye exam Procedures Routine Expe cted: 06/16/2024, Expires: 09/16/2024 documented as of this encounter Visit Diagnoses Diagnosis Cataract Senile Nuclear Sclerosis Bilateral- Primary Dry Eye Syndrome Bilateral documented in this encounter Additional Health Concerns Assessment Noted Time PHQ-9 Depression Total Score: 9 06/16/19 24 7:14 AM CDT documented as of this encounter Care Teams Manager Restaurant Relationship Specialty Start Date End Date Lilli Chacon M.D. [address] [phone] PCP - General Family Medicine 05/11/21 documented as of this encounter
--- OUTSIDE RECORDS SUMMARY | 2023-07-03 18:30 | XMS_ITS | Encounter Summary ---
Author Organization [facility] Address [address] [place] [address] Care Team Providers Care Stringed Instrument Assembler Name Role Phone Lilli Chacon M.D. Primary Care Provider [phone] Reason for Visit * Reason Onset Date Comments Communication 03/21/2023 Encounter Details Date Type Department Care Team (Late st Contact Info) Description 03/21/2023 Clinical Communication Department of Family Medicine, [facility], in [place], [place] [address] [address] Lilli Chacon M.D. [address] [address] Communication Social History Tobacco Use Types [...] week 09/13/2021 How often do you attend [facility] or church services? 1 to 4 times per year 09/13/2021 Do you belong to any clubs o r organizations such as gnosticist groups, unions, fraternal or athletic groups, or [...] Answer Date Recorded PHQ-2 Score 2 01/21/2023 [facility] - Occupational [...] your living situation today? I have a [facility] place to live 10/28/2022 Education Answer Date Recorded What is the highest level of school you have completed or the highest degree you have received? Doctorate 09/05/2018 Sex and Gender Information Value Date Recorded Sex Assigned at Female 12/19/2016 7:29 PM MORTGAGE LOAN COORDINATOR Gender Identity Female 12/19/2016 7:29 PM MORTGAGE LOAN COORDINATOR Sexual Orientation Lesbian or [place] 03/12/2020 12 :23 PM MORTGAGE LOAN COORDINATOR documented as of this encounter Plan of Treatment Upcoming Encounters Date Type Department Care Team (Late st Contact Info) Description 08/25/2023 10:00 AM CDT Appointment Department of Radiology in [place], [place] [address] [place] [address] Lilli Chacon M.D. [address], [place] [address] documented as of this encounter Visit Diagnoses Not on filedocumented in this encounter Additional Health Concerns Assessment Noted Time PHQ-9 Depression Total Score: 5 01/22/20 12:09 AM MORTGAGE LOAN COORDINATOR documented as of this encounter Care Teams Stringed Instrument Assembler Relationship Specialty Start Date End Date Lilli Chacon M.D. [address] [place] [id number] PCP - General Family Medicine 05/11/21 documented as of this encounter
[2023-07-03] MEDS: MIDAZOLAM HCL 1 MG/ML inj IVP (20:27)
== END 2023-07-03 21:05 | disposition other institution (70) ==
PROVIDERS: Emergency Provider Family Medicine; PCP Family Medicine
DX: S82.252A Displaced comminuted fracture of shaft of left tibia, initial encounter for closed fracture (principal); S82.492A Other fracture of shaft of left fibula, initial encounter for closed fracture; W11.XXXA Fall on and from ladder, initial encounter
CPT/HCPCS: 70450; 73590; 96374; 96375; 96376; 99284; 99285; J1170; J2250

== ENCOUNTER 2023-07-03 20:50 | Outpatient (CLI) | payer OTHER, SELFPAY ==
--- OUTSIDE RECORDS SUMMARY | 2023-07-09 12:57 | XMS_ITS | Clinical Summary ---
Author Organization [facility] Address [place], [place] [address] Care Team Providers Care Csm Consultant Name Role Phone Lilli Chacon MD Primary [...] 20 mg by mouth once daily. Active KRRYXOMB-CIRVXPCKJUX-Y IET CB25 ORAL Take by mouth. Active CHROMIUM/HERBAL COMPLEX NO.238 (GREEN TEA, W/MET.ENHAN.BLEND, ORAL) Take by mouth. Active levothyroxine (SYNTHROID) 100 mcg tablet Take 100 mcg by mouth before breakfast. Active im-xt-tboqxv #134-e-wypmgwqqvr 100 mg tab Take 1 Tab by [...] ANSELMO BILAT SCREEN Routine 02/09/2023 8:55 AM CONSTRUCTION FRAMER Visit for screening mammogram from Last 3 Months or Most Recently Relevant to Health Maintenance Results * XR MAMMO ANSELMO BILAT SCREEN (02/09/2023 8:55 AM CONSTRUCTION FRAMER) Anatomical Region Laterality Modality BREASTS, Breast Left, Breast Right Bilateral Mammography Impressions 02/09/2023 10:21 AM CONSTRUCTION FRAMER ??There is no radiographic evidence for malignancy. ??Recommend annual mammograms. MAMMOGRAM ASSESSMENT: ??ACR 1 Negative PATIENTS: You will also receive a letter with your examination results in an easy to read format. ??If you have questions about your results, please contact your referring provider. Narrative 02/09/2023 10:21 AM CONSTRUCTION FRAMER For Patients: As a result of the Century Cures Act, medical imaging exams and procedure reports are released immediately into your electronic medical record. You may view this report before your referring provider. If you have questions, please contact your health care provider. XR MAMMO ANSELMO BILAT SCREEN [[id number]] CLINICAL HISTORY: ??This is an asymptomatic 72 [...] 9:28 AM 10/04/2016 2:51 PM Care Teams Csm Consultant Relationship Specialty Start Date End Date Lilli Chacon MD [address] [place] [address] PCP - General Family Practice 02/08/23
--- OUTSIDE RECORDS SUMMARY | 2023-07-09 12:57 | XMS_ITS | Clinical Summary ---
Author Organization [facility] Address [address] [place] [address] Care Team Providers Care Chief Service Observer Name Role Phone Lilli Chacon M.D. Primary Care Provider +1- [phone] Source Comments Patient records contain information from all sites at [facility]. For routine questions regarding patient records, call [phone] during business hours, M-F 8:00 AM - 5:00 PM Central Time. Record requests for emergency care only can be directed to [phone] at any time.[facility] Allergies Active Allergy Reactions Criticality Noted Date [...] Anesthesia Event RST ROMB MAIN OR [address] [place] [phone] Jamir Dye M.D. Corbitt, Rachel E, M.D. 07/04/2023 10:37 AM CDT - 07/04/2023 12:57 PM CDT Surgery [facility]ST ROMB MAIN OR [address] [place] [phone] Jaxson Rodriguez M.D. APPLICATION EXTERNAL FIXATION LOWER EXTREMITY, KNEE SPANNING 07/03/2023 10:12 PM CDT - Present Hospital Encounter [facility], [facility] [place], [facility], Eighth Floor [address] [place] [phone] Otis Mak M.D. Wood, Luke E, D.O. Hidden, Krystin A, M.D. Wyles, Cody C, M.D. Fracture Tibial Plateau Closed Initial Left (Primary Dx); Decline Functional Status [R53.81]; Difficulty Walking Orthopedic Cause [R26.2] 07/03/2023 Clinical Communication Department of Orthopedic Surgery in [place], [place] [address] [place] [phone] Joaquin Kim M.D. 07/03/2023 Intake [facility] 06/17/2023 8:15 AM CDT Comprehensive Visit Department of Ophthalmology in [place], [place] [address] [phone] Tyshawn Puga M.D. Cataract Senile Nuclear Sclerosis Bilateral (Primary Dx); Dry Eye Syndrome Bilateral 06/16/2023 8:30 AM CDT Office Visit Department of Family Medicine, [facility], in [place], [place] [address] [phone] Lilli Chacon M.D. Pain Chest Wall (Primary Dx); Obesity Body Mass Index 30-39.9 Adult; Hypercholesterolem ia; Hypothyroidism; Hyperlipidemia Mixed; Iron Deficiency Anemia Screening Exam; Screening Osteoporosis 05/03/2023 1:30 PM CDT Procedure visit Division of Pain Medicine in [place], [place] [address] [place] [phone] Mayela Velazco M.D. Pain Chest Wall 05/03/2023 12:45 PM CDT Comprehensive Visit Division of Pain Medicine in [place], [place] [address] [place] [phone] Eva Srivastava, BALBIR, C.N.P., M.S.N. Pain Chest [...] drink = 0.6 oz pur e alcohol) [facility] Utilities Answer Date Recorded In the past 12 months has e [employer], gas, oil, or water [employer] threatened to shut off services in your [...] week 09/13/2021 How often do you attend [facility] or spiritism services? 1 to 4 times per year 09/13/2021 Do you belong to any clubs o r organizations such as confucianist groups, unions, fraternal or athletic groups, or [...] Date Recorded PHQ-2 Score 4 06/16/2023 [facility] [place] - Occupational Stress Questionnaire Answer Date Recorded [...] your living situation today? I have a [facility] place to live 07/04/2023 Education Answer Date Recorded What is the highest level of school you have completed or the highest degree you have received? Doctorate 09/05/2018 Sex and Gender Information Value Date Recorded Sex Assigned at Female 12/19/2016 7:29 PM SHRIMPING BOAT CAPTAIN Gender Identity Female 12/19/2016 7:29 PM SHRIMPING BOAT CAPTAIN Sexual Orientation Lesbian or Turcios 03/12/2020 12 :23 PM SHRIMPING BOAT CAPTAIN Last Filed Vital Signs Vital Sign Reading [...] Hospital Encounter Post Anesthesia Care Unit in [place] [address] [place] [phone] Corrina Zuniga M.D. [address] [place] [phone] 07/12/2023 7:50 AM CDT - 07/12/2023 11:42 AM CDT Surgery [facility]ST ROMB MAIN OR [address] [place] [address] Corrina Zuniga M.D. [address] [place] [phone] OPEN REDUCTION INTERNAL FIXATION TIBIAL PLATEAU - LEFT, proceed as indicated 08/25/2023 10:00 AM CDT Appointment Department of Radiology in [place], [place] [address] [place] [address] Lilli Chacon M.D. [address] [place] [phone] 12/19/2023 9:10 AM SHRIMPING BOAT CAPTAIN Appointment Department of Laboratory Medicine in [place], [place] [address] [facility] [place] [phone] Lilli Chacon M.D. [address] [place] [address] Scheduled Procedures Name Priority Associated [...] Completed 06/16/2023 Medical Devices Implanted Type Area Food Service Supervisor Device Identifier Shelf Expiration Date Model / Serial / Lot Cplng Ext Fx Crbnfb 5x8 - [id number] Implanted:Qty: 7 on 07/04/2023 by Jaxson Rodriguez M.D. at [facility] Hardware e.g. pins/screws/r ods [place] 4922-1-010 / / Hilario Ext Fx Crbnfb [id number] - [id number] Implanted:Qty: 2 on 07/04/2023 by Jaxson Rodriguez M.D. at [facility] Hardware e.g. pins/screws/r ods [place] 4922-8-500 / / Hilario Ext Fx Crbnfb 41o205 - [id number] Implanted:Qty: 1 on 07/04/2023 by Jaxson Rodriguez M.D. at [facility] Hardware e.g. pins/screws/r ods Hang 4922-8-400 / / Pin Ext Fx Ss St Apx [id number] - [id number] Implanted:Qty: 1 on 07/04/2023 by Jaxson Rodriguez M.D. at [facility] Hardware e.g. pins/screws/r ods [place] 5020-8-250 / / Pin Ext Fx Ss St Apx 5x180 - [id number] Implanted:Qty: 3 on 07/04/2023 by Jaxson Rodriguez M.D. at [facility] Hardware e.g. pins/screws/r ods Hang 5020-7-180 / [...] SKELETAL Routine 07/03/2023 5 :55 PM CDT VT US GUIDE PLC NDL Routine 05/03/2023 1 :30 PM CDT Pain Chest Wall VT INJ TRIGGER PNT<=2 MUS Routine 05/03/2023 1:30 PM CDT Pain Chest Wall BI BREAST SCREENING BILATERAL WITH TOMOSYNTHESIS RAD - Routine (most inpatients and all outpatients) 02/09/2023 8:55 AM SHRIMPING BOAT CAPTAIN LIPID PANEL, S Routine 02/02/2023 2:28 PM SHRIMPING BOAT CAPTAIN Gain Weight THYROID-STIMULATING HORMONE-SENSITIVE (S-TSH) Routine 02/02/2023 2:28 PM SHRIMPING BOAT CAPTAIN Hypothyroidism HCV AB SCRN W/REFLEX TO HCV PCR, S Routine 03/17/2022 10:17 AM SHRIMPING BOAT CAPTAIN Screening Test Laboratory COLONOSCOPY Routine 11/26/2019 3:23 [...] CDT Gabriel Hooks M.D. LAB BLOOD ADD-ON [facility] [address] [place] [address], [facility] [address] [place] [address] * (ABNORMAL) Basic Metabolic Panel (07/08/2023 6:09 [...] CDT Gabriel Hooks M.D. LAB BLOOD ADD-ON [facility] [address] [place] [address], [facility] [address] [place] [address] * (ABNORMAL) CBC with Differential, Blood (07/05/2023 [...] CDT Cresencio Reno M.D. LAB BLOOD ADD-ON [facility] [address] [place] [address], [facility] DTL [facility] [address] [place] [address] [facility] [address] [place] [address] * CT Knee Left without IV Contrast [...] ETT location: oral VL device: glide scope [place] scope blade size: 3 Tube size: 7 [...] Prothrombin Time (PT) (07/03/2023 10:53 PM CDT) [facility] Prothrombin Time, P 11.7 9.4 - 12.5 [...] ADD-ON Performing Organization Address City/[facility]/ZIP Co de Phone Number [facility] [address] [place] [address], [facility] STMA [facility] [address] [place] [address] * Type and Screen (with Reflex Antibody ID) (07/03/2023 10:53 PM CDT) Pathologist [facility] ABORh O Pos Not applicable 07/03/2023 11:19 PM CDT STRM Antibody Screen Negative Negative 07/03/2023 11:34 PM CDT STRM Type & Screen Expiration 07/06/2023 23:59 07/03/2023 11:19 PM CDT STRM Testing Location [place] DEFAULT 07/03/2023 11:00 PM CDT STRM Blood (Blood, Venous) 07/03/2023 10:53 PM CDT 07/03/2023 11:00 PM CDT Narrative Authorizing Provider Result Vijaya Mak M.D. LAB BLOOD BANK TEST ORDERABLES Performing Organization Address City/[facility]/ZIP Co de Phone Number [facility] [address] [place] [address], [facility] STRM [facility] [address] [place] [address] * ECG 12 Lead (07/03/2023 10:32 PM CDT) Ventricular Rate ECG/Min 77 BPM MUSE VT Interval 146 ms MUSE QRSD Interval 76 ms MUSE QT Interval 400 ms MUSE QTC Interval 452 ms MUSE P Hazen 50 degrees MUSE R [place] 16 degrees MUSE T Wave [place] 44 degrees MUSE 07/03/2023 10:3 2 PM [...] DIAGNOSTIC IM AGING PROCEDURES IIMS NA * VT INJ TRIGGER PNT<=2 MUS, VT US GUIDE PLC NDL (05/03/2023 1:30 PM CDT) Narrative MMODAL - 05/03/2023 1:30 PM CDT Mayela Velazco M.D. ? 05/03/2023 ??1:52 PM PM Trigger point injection (right cervical and left cervical) Performed by: Mayela Velazco M.D. Authorized by: Lilli Chacon M.D. ?? Care team members present 1. Louisa Garcai, L.PPrakashN. 2. Junaid Stack D.O. PROCEDURE SUMMARY [...] fellow participated in the procedure, and the knowledge management consultant was present for the entire procedure. OPERATIVE NOTE INFORMATION Specimens: 0 Drains: 0 Estimated blood loss: 0 Implants: 0 Lilli Chacon M.D. PROCEDURE/MINOR CASTILLO RGICAL ORDERABLES MMODAL NA * (ABNORMAL) Lipid Panel (02/02/2023 2:28 PM SHRIMPING BOAT CAPTAIN) Triglycerides 69 mg/dL 02/02/2023 4:41 PM SHRIMPING BOAT CAPTAIN OWAT Comment: ----REFERENCE VALUE---- Normal: <150 mg/dL Borderline High: 150-199 mg/dL High: 200-499 mg/dL Very High: > or =500 mg/dL Cholesterol, Total 230(H) mg/dL 2022 4:41 PM SHRIMPING BOAT CAPTAIN OWAT Comment: ----REFERENCE VALUE---- Desirable: < 200 mg/dL Borderline High: 200 - 239 mg/dL High: > or = 240 mg/dL Cholesterol, LDL, Calculated 118 mg/dL 02/02/2023 4:41 PM SHRIMPING BOAT CAPTAIN OWAT Comment: ----REFERENCE VALUE---- Desirable: <100 mg/dL Above Desirable: 100-129 mg/dL Borderline High: 130-159 mg/dL High: 160-189 mg/dL Very High: >=190 mg/dL ----ADDITIONAL INFORMATION---- LDL cholesterol calculated using the Siu/NIH equation. Cholesterol, HDL 100 >=50 mg/dL 02/03/20 4:41 PM SHRIMPING BOAT CAPTAIN OWAT Cholesterol, Non-HDL, Calculated 130 mg/dL 02/02/2023 4:41 PM SHRIMPING BOAT CAPTAIN OWAT Comment: ----REFERENCE VALUE---- Desirable: <130 mg/dL Above Desirable: 130-159 mg/dL Borderline High: 160-189 mg/dL High: 190-219 mg/dL Very High: > or =220 mg/dL Fasting (8 HR or more) yes 02/02/2023 3:40 PM SHRIMPING BOAT CAPTAIN OWAT Blood (Blood, Venous) 02/02/2023 2:28 PM SHRIMPING BOAT CAPTAIN 02/02/2023 3:40 PM SHRIMPING BOAT CAPTAIN Katie Corona M.D. LAB BLOOD ADD-ON [facility] [address] [place] [address], [facility] OWAT [facility] [place] [address] [place] [address] * S-TSH (Thyroid-Stimulating Hormone - Sensitive) (02/02/2023 2:28 PM SHRIMPING BOAT CAPTAIN) TSH, Sensitive 0.3 0.3 - 4.2 mIU/L 02/02/2023 4:37 PM SHRIMPING BOAT CAPTAIN OWAT Blood (Blood, Venous) 02/02/2023 2:28 PM SHRIMPING BOAT CAPTAIN 02/02/2023 3:40 PM SHRIMPING BOAT CAPTAIN Lilli Chacon M.D. LAB BLOOD ADD-ON [facility] [address] [place] [address], [place] OWAT [facility] [place] [address] [place] [address] * HCV Ab Scrn w/Reflex to HCV PCR, Serum (03/17/2022 10:17 AM SHRIMPING BOAT CAPTAIN) HCV Ab Screen, S Negative Negative 03/18/2022 8:10 AM SHRIMPING BOAT CAPTAIN [facility] Comment:Ufxjlr-eg-endemn rat io is <1.00. Blood (Blood, Venous) 03/17/2022 10:17 AM SHRIMPING BOAT CAPTAIN 03/18/2022 7:06 AM SHRIMPING BOAT CAPTAIN Lilli Chacon M.D. LAB MICROBIOLOGY - BLOOD ORDERABLES [facility] [address] [place] [address] [facility] [address] [place] [address] from Last 3 Months or Most Recently Relevant to Health Maintenance Advance Directives For more information, please contact: [phone] * Full Code (Latest Code Status on File) Date Activated Date Inactivated Comments 07/03/2023 11:47 PM Question Answer Comments Full Code: Discussed Care Teams Chief Service Observer Relationship Specialty Start Date End Date Lilli Chacon M.D. [address] [place] [phone] PCP - General Family Medicine 05/11/21
--- OUTSIDE RECORDS SUMMARY | 2023-07-09 12:58 | XMS_ITS | Encounter Summary ---
Author Organization [facility] Address [address] [place] [address] Care Team Providers Care Power Brake Operator Name Role Phone Lilli Chacon M.D. Primary Care Provider [phone] Reason for Visit * Reason Comments Leg Pain * Auth/Cert (Routine) Specialty Diagnoses / Procedures Referred By Ritaac t Referred To Contact Diagnoses Fracture Tibial Plateau Closed Initial Left Tib Fib Fracture Procedures EMERGENCY Otis Mak M.D. [address] [place] [phone] Referral ID Status Reason Start Date Expiration Date Visits Re quested Visits Authorized [id number] 1 1 Encounter Details Date Type Department Care Team (Late st Contact Info) Description 07/04/2023 10:37 AM CDT - 07/04/2023 12:57 PM CDT Surgery RST ROMB MAIN OR [address] [place] [phone] Jaxson Rodriguez M.D. [address] [place] [phone] APPLICATION EXTERNAL FIXATION LOWER EXTREMITY, KNEE SPANNING Social History Tobacco Use Types Packs/Day Years Used Date Smoking Tobacco: Former Cigarettes 1 2002 Smokeless Tobacco: Never Alcohol Use Standard Drinks/Week Comments Yes 2 (1 standard drink = 0.6 oz pur e alcohol) [facility] Utilities Answer Date Recorded In the past 12 months has [employer], gas, oil, or water company threatened to [...] week 09/13/2021 How often do you attend [facility] or church services? 1 to 4 times per year 09/13/2021 Do you belong to any clubs o r organizations such as orthodoxy groups, unions, fraternal or athletic groups, or [...] Answer Date Recorded PHQ-2 Score 4 06/16/2023 [facility] - Occupational [...] your living situation today? I have a [facility] place to live 07/04/2023 Education Answer Date Recorded What is the highest level of school you have completed or the highest degree you have received? Doctorate 09/05/2018 Sex and Gender Information Value Date Recorded Sex Assigned at Female 12/19/2016 7:29 PM [employer]INTE[employer] [place] Gender Identity Female 12/19/2016 7:29 PM MAINTENANCE [employer] [place] Sexual Orientation Lesbian or [place] 03/12/2020 12 :23 PM MAINTENANCE MECH[employer] [place] documented as of this encounter Last Filed [...] From 6am-6pm Tuesday-Tuesday, please contact OTS-4 at [phone] with any questions regarding this patient. If overnight [phone] or any time on weekends, please contact the Orthopedic Surgery house resident mission assessment specialist at [phone]. * Hugo Baires P.T.A. - 07/08/2023 3:19 [...] about patient's nutritional care please contact pager [phone] on weekdays or [phone] on weekends/holidays. * Charisse Rowley L.G.SLuzmaria., M.S.W. - 07/08/2023 11:22 AM CDT SUBJECTIVE Social Work continues to follow to assist with discharge needs. Referrals Sent; (1) [facility] - declined 07/06; facility full (2) [facility] - declined; can reconsider after external fixation is removed (3) [facility] - declined; facility full (4) [facility] - pending; left a voicemail with Danna/Admissions 07/06 (5) [facility] - declined; payor source (rounding physicians require Medicare Part B forbilling purposes) (6) [facility] - declined; can reconsider after externalfixation is removed. New Referrals Sent; (7) [facility] [place] - pending (8) [facility] [place] - pending ([facility]) [facility] [place] [facility] Social Work met with Patient [...] the care she has received at [facility]. Patient welcomed additional referrals closer to home as needed, including to the [facility] sites. Patient, Social Work, and Wanda also discussed the role of Home Health - for after short-term rehabilitationplacement or another option at hospital discharge should she progress enough to feel comfortable inreturning home. Patient is borrowing a walker from someone she knows and is interested in information for renting a wheelchair. OBJECTIVE Patient is currently admitted to [facility]. ASSESSMENT / PLAN ASSESSMENT Patient and her spouse, Wanda demonstrate insight into Patient's needs and are engaged in planning. Barriers - Planned Readmission for External Fixation Removal PLAN Patient anticipates discharge to a senior living facility or [facility] - referrals pending Social Work will continue to follow to assist with discharge needs and/or to provide supportive visits. Sadaf Ramírez, M.S.W. 07/08/23 * Adeline Chino - 07/08/2023 10:59 AM CDT Occupational Therapy Acute Hospital Inpatient Treatment SUBJECTIVE Patient's Name: [facility] Referring/Attending Provider: Jaxson Rodriguez M.D. Reason for Referral: Occupational Therapy Evaluation and Treatment History of Present Illness: Shreya Douglas is a 72 y.o. female who was admitted to [facility] in [place] on 07/03/2023 for Fracture Tibial Plateau Closed [...] vital changes during therapy session. Outcome Measures: [facility] Inpatient Short Form: Putting on and taking [...] at or below 17 Clinicians answer the [facility] Inpatient Short Form based on observed patient activity and/or clinical judgement (ie. 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 If overnight [phone] or any time on weekends, please contact the Orthopedic Surgery house resident mission assessment specialist at [phone]. * Adeline Chino - 07/07/2023 3:33 PM CDT Occupational Therapy [facility] Inpatient Treatment SUBJECTIVE Patient's Name: Shreya Douglas Referring/Attending Provider: Jaxson Rodriguez M.D. Reason for Referral: Occupational Therapy Evaluation and Treatment History of Present Illness: Shreya Douglas is a 72 y.o. female who was admitted to [facility] in [place] on 07/03/2023 for Fracture Tibial Plateau Closed [...] vital changes during therapy session. 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 Referrals Sent; (1) [facility] - declined 07/06; facility full (2) [facility] - declined; can reconsider after external fixation is removed (3) [facility] - pending; left a voicemail with Natasha/Admissions 07/06 (4) [facility] - pending; left a voicemail with Danna/Admissions 07/06 (5) [facility] - declined; payor source (rounding physicians require Medicare Part B forbilling purposes) (6) [facility] - declined; can reconsider after externalfixation is removed. OBJECTIVE Patient is currently admitted to [facility]. ASSESSMENT / PLAN ASSESSMENT Social Work attempted to meet with Patient, but Patient was occupied in other care. Patient was notassessed at this time. Barriers - Planned Readmission for External Fixation Removal PLAN Patient anticipates discharge to a senior living facility - referrals pending Social Work will [...] 72 y.o. female who was admitted to [facility] in [place] on 07/03/2023 for Fracture Tibial Plateau Closed [...] vital changes during therapy session. Outcome Measures: [facility] Inpatient Short Form: -[facility] Basic Mobility (V.2) How much help from [...] Climbing 3-5 steps with a railing?: Total [facility] Basic Mobility (V.2) Raw Score: 11 -[facility] Basic Mobility (V.2) Standardized Score: 30.25 Interpretation: Based on scoring guidelines using the raw score value: Those going to home had an average score at or above 18 Those going to facility had an average score at or below 17 Clinicians answer the [facility] Inpatient Short Form based on observed patient [...] PT Plan Comments: Train bed mobility; progress dxb-zh-[id number] transfers; progress ambulation with chair follow Functional Goals: PT Inpatient Goals PT Goal #1: Patient will perform bed mobility with with minimal assistance of 1 person without hospital bed features in order to improve functional mobility PT Goal #1 Status: Advanced PT Goal #2: Patient will perform swz-oo-fqxcx transfers with least restrictive assistive device andminimal [...] min Total Treatment Time (min): 29 min ([id number]) Catia Alejandro P.T., D.P.T. * Gabriel Hooks [...] From 6am-6pm Tuesday-Tuesday, please contact OTS-4 at [phone] with any questions regarding this patient. If overnight [phone] or any time on weekends, please contact the Orthopedic Surgery house resident mission assessment specialist at [phone]. * Samantha Garcia V. P.T. - 07/06/2023 4:03 PM CDT Physical Therapy Inpatient Treatment SUBJECTIVE Patient's Name: Shreya Douglas Referring/Attending Provider: Jaxson Rodriguez M.D. Reason for Referral: Physical Therapy Evaluate and Treat History of Present Illness: Shreya Douglas is a 72 y.o. female who was admitted to [facility] in [place] on 07/03/2023 for Fracture Tibial Plateau Closed [...] at or below 17 Clinicians answer the [facility] Inpatient Short Form based on observed patient [...] - 07/06/2023 10:18 AM CDT Occupational Therapy [facility] Inpatient Treatment SUBJECTIVE Patient's Name: Shreya Douglas Referring/Attending Provider: Jaxson Rodriguez M.D. Reason for Referral: Occupational Therapy Evaluation and Treatment History of Present Illness: Shreya Douglas is a 72 y.o. female who was admitted to [facility] in [place] on 07/03/2023 for Fracture Tibial Plateau Closed [...] vital changes during therapy session. Outcome Measures: [facility] Inpatient Short Form: Putting on and taking [...] at or below 17 Clinicians answer the [facility] Inpatient Short Form based on observed patient [...] Assistance with medication set up/administration, Assistance with manager financial planning, Assistance with transportation, Assistance with showering/bathing, Assistance [...] a child From 6am-6pm Tuesday-Tuesday, please contact [facility] at [phone] with any questions regarding this patient. If overnight [phone] or any time on weekends, please contact the Orthopedic Surgery house resident mission assessment specialist at [phone]. * Christianne Reno DHallie - 07/06/2023 2:50 AM CDT [facility] Note I came to re-assess the patient. [...] throughout the morning. DO Miriam Acevedo, pager [phone] * Christianne Reno D.O. - 07/06/2023 1:45 [...] perform another clinical exam. DO Miriam Acevedo [place], pager [phone] * Charisse Rowley L.G.S.W., M.S.W. - 07/05/2023 5:23 PM CDT SUBJECTIVE Social Work attempted to meet with Patient x2 earlier in the day; Patient engaged in other care. Social Work unable to return again late in the afternoon. OBJECTIVE Patient is currently admitted to [facility]. ASSESSMENT / PLAN ASSESSMENT Patient was not assessed at this time. PLAN Social Work to follow up tomorrow to completed assessment. Sadaf Ramírez M.S.W. 07/05/23 * Quentin Amezquita M.D. - 07/05/2023 12:27 PM CDT [facility] Orthopedic Trauma Surgery [address] [place] [address] Supervisory Progress Note I saw and evaluated [...] team's plan of care. Counseling was provided [id number] at bedside regarding the plan of care [...] PLAN Ms. Romero Douglas is hospitalized on [facility] Orthopedic Trauma Surgery [address] [place] [address] for evaluation and management of Fracture Tibial Plateau Closed Initial Left and is status post Surgery Information This Encounter Past Procedures (07/05/2022 to Today) Date Procedures Providers Loc / Dept 07/04/2023 APPLICATION EXTERNAL FIXATION LOWER EXTREMITY, KNEE SPANNING Jaxson Rodriguez M.D.Fareed Villagran M.D.Mahamed Daniel M.D.Madina Hansen M.D. [facility] ROMB OR Medicine Consult service was consulted [...] Consults will sign off. Please page the [facility] Medicine Consult Team 1 pager [phone] with any questions or concerns. The above [...] a child From 6am-6pm Tuesday-Tuesday, please contact [facility] at [phone] with any questions regarding this patient. If overnight [phone] or any time on weekends, please contact the Orthopedic Surgery house resident mission assessment specialist at [phone]. * Toney Anderson M.D. - 07/04/2023 8:25 [...] and provider: Lilli Chacon M.D. (Currently In [place]; moving to [place] per Patient) They were advised of the [...] Wanda. History: None Reported Employment: Retired from [email or web address] in January; Still Professionally Engaged [employer] Utilities: N/A [facility] Food Insecurity: N/A [place] Housing: N/A [facility] Intimate Partner Violence: N/A Psychosocial Risk [...] Wanda and their friends. FINANCES/INSURANCE Primary insurance: [employer] OPEN ACCESS Secondary insurance: N/A Financial concerns: No ADVANCE DIRECTIVES Advance Directive: Patient has advance directive, copy not in chart OBJECTIVE Suicide Risk and Safety Risk Assessment: Suicidal: No Homicidal: No Current Stressors Current Hospitalization and Medical Status Coping Skills/Strengths Prior Level of [place] Social Support Interests - Retired (Remains Professionally [...] to discharge, Patient anticipates discharging to a senior living facility. She anticipates follow-up for removal of her external fixation. A list of senior living facility options (that they geographically reside or requested) has been provided to and reviewed with patient. Disclaimers: Financial disclosure provided informing patient of our ownership and financial relationship of the [facility] beds, home health, and hospice agencies. Reviewed [facility] insurance coverage and provided in-network options. Referrals Sent; (1) [facility] - pending (2) [facility] - pending (3) [facility] - pending (4) [facility] - pending (5) [facility] - pending (6) [facility] pending Patient anticipates possibly having her [...] approach. PLAN Patient anticipates discharging to a senior living facility - referrals pending. Social Work will [...] 72 y.o. 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 patient can be scored without physically performing each activity) [facility] post-concussion symptoms questionnaire: A quick quantitative measure [...] Assistance with medication set up/administration, Assistance with manager financial planning, Assistance with transportation, Assistance with showering/bathing, Assistance [...] EXTREMITY (Left, 07/04/2023). History of Present Illness: Shryea Douglas is a 72 y.o. female who was admitted to [facility] in [place] on 07/03/2023 for Fracture Tibial Plateau Closed [...] is brining a front wheeled walker, a bee tender , shower chair. Patient is planning to [...] than 10 minutes of activity Outcome Measures: [facility] Inpatient Short Form: -[facility] Basic Mobility (V.2) How much help from [...] Climbing 3-5 steps with a railing?: Total [facility] Basic Mobility (V.2) Raw Score: 7 [facility] Basic Mobility (V.2) Standardized Score: 19.39 Interpretation: Based on scoring guidelines using the raw score value: Those going to home had an average score at or above 18 Those going to facility had an average score at or below 17 Clinicians answer the [facility] Inpatient Short Form based on observed patient [...] risk RCRI: 3.9% Carey Score (Risk of [place] or arrest within 30 days): 0.2% DASI: [...] will continue to follow. Please page the [facility] Medicine Consult Team 1 pager [phone] with any questions or concerns. I personally [...] and hypercholesterolemia who presented to the [facility] ED after sustaining a closed left tibial plateau fracture following a ground level fall this afternoon while working in her garden as an ED to ED transfer from [place]. They denied any head injury or loss [...] 3 PM. Medical Comorbidities: Denies any diabetes, WI, stroke, DVT, COPD, history of deep joint [...] a blood transfusion if necessary. The [facility] multidisciplinary team approach wasdiscussed. Activity: NWB LLE [...] From 6am-6pm Tuesday-Tuesday, please contact [facility]3 at [phone] with any questions regarding this patient. If overnight [phone] or any time on weekends, please contact the Orthopedic Surgery house resident mission assessment specialist at [phone]. Ayaka Trivedi MD Orthopedic Surgery Resident 07/03/23 [...] Chair alarm. WAR. Q2H repositioning. CWMS: PP+2. SAND CASTER<2secs. + wiggle toes Incision: Ext fix 3 [...] pulmonary hygiene with incentive spirometer. Discharge Plan: [facility] when medically ready Any care plans not [...] Chair alarm. WAR. Q2H repositioning. CWMS: PP+2. SAND CASTER<2secs. + wiggle toes Incision:ext fix 4 pins [...] Diagnosis Fracture Tibial Plateau Closed Initial Left Dry Room Attendant A licensed sales assistant actively participated and was necessary for one [...] PM CDT Pt arrives via EMS from [place]. Was hanging meyers at home, stepped backwards [...] Hospital Encounter Post Anesthesia Care Unit in [place], [place] [address] [place] [phone] Corrina Zuniga M.D. [address] [place] [phone] 07/12/2023 7:50 AM CDT - 07/12/2023 11:42 AM CDT Surgery RST ROMB MAIN OR [address] [place] [phone] Corrina Zuniga M.D. [address] [place] [phone] OPEN REDUCTION INTERNAL FIXATION TIBIAL PLATEAU - LEFT, proceed as indicated 08/25/2023 10:00 AM CDT Appointment Department of Radiology in [place], [place] [address] [phone] Lilli Chacon M.D. [address] [place] [phone] 12/19/2023 9:10 AM MAINTENANCE MECHANIC [place] Appointment Department of Laboratory Medicine in [address] [phone] Lilli Chacon M.D. [address] [place] [phone] Scheduled Orders Name Type Priority Associated Diagnoses Order Schedule Incentive Spirometry - RT/RN Respiratory Care Routine [id number] (o emily [id number]) until discontinued starting 07/04/2023 Scheduled Procedures Name [...] CDT Gabriel Hooks M.D. LAB BLOOD ADD-ON [facility] [address] [place] [address], [facility] [address] [place] [address] * (ABNORMAL) CBC without Differential (07/08/2023 6:09 [...] CDT Gabriel Hooks M.D. LAB BLOOD ADD-ON [address] [address], [address] [address] * (ABNORMAL) Basic Metabolic Panel (07/05/2023 6:40 [...] CDT Cresencio Reno M.D. LAB BLOOD ADD-ON [address] [address], [facility] [address] [address] * (ABNORMAL) CBC with Differential, Blood (07/05/2023 [...] CDT Cresencio Reno M.D. LAB BLOOD ADD-ON [facility] [address] [place] [address], [facility] DTL [facility] [address] [place] [address] DHPM [facility] [address] [place] [address] * CT Knee Left without IV Contrast [...] lobe. Chest otherwise negative. Otis Mak M.D. [facility] DIAGNOSTIC IMAGI NG PROCEDURES * DX Fingers [...] 07/03/2023 11:19 PM CDT STRM Testing Location [place] DEFAULT 07/03/2023 11:00 PM CDT STRM Blood (Blood, Venous) 07/03/2023 10:53 PM CDT 07/03/2023 11:00 PM CDT Otis Mak M.D. LAB BLOOD BANK TEST ORDERABLES [facility] [address] [place] [address], [facility] STRM [facility] [address] [place] [address] * Basic Metabolic Panel (07/03/2023 10:53 PM [...] CDT Otis Mak M.D. LAB BLOOD ADD-ON [facility] [address] [place] [address], [facility] [address] [place] [address] * Prothrombin Time (PT) (07/03/2023 10:53 PM [...] CDT Otis Mak M.D. LAB BLOOD ADD-ON [facility] [address] [place] [address], [facility] [address] [place] [address] * (ABNORMAL) CBC with Differential, Blood (07/03/2023 [...] M.D. LAB BLOOD ADD-ON Performing Organization Address [facility] Co de Phone Number [facility] [address] [place] [address], [facility] STMA [facility] [address] [place] [address] DHPM [facility] [address] [place] [address] * ECG 12 Lead (07/03/2023 10:32 PM CDT) Ventricular Rate ECG/Min 77 BPM MUSE IN Interval 146 ms MUSE QRSD Interval 76 ms MUSE QT Interval 400 ms MUSE QTC Interval 452 ms MUSE P [place] 50 degrees MUSE R [place] 16 degrees MUSE T Wave [place] 44 degrees MUSE 07/03/2023 10:3 2 PM [...] Mak M.D. ECG ORDERABLES Performing Organization Address City/[facility]/ZIP Co de Phone Number MUSE NA documented [...] - Provider: Grecia Rivera R.N. - Comment: [facility])1200 (Due)1700 (Due)2100 (Due) atorvastatin tablet 20 mg [...] documented as of this encounter Care Teams Power Brake Operator Relationship Specialty Start Date End Date Lilli Chacon M.D. [address] [place] [phone] PCP - General Family Medicine 05/11/21 documented as of this encounter
--- OUTSIDE RECORDS SUMMARY | 2023-07-09 12:58 | XMS_ITS | Referral Summary ---
Author Organization [facility] Address [address] [place] [address] Care Team Providers Care Dumper Mold Cleaner Name Role Phone Lilli Chacon M.D. Primary Care Provider [phone]- [phone] Source Comments Patient records contain information from all sites at [facility]. For routine questions regarding patient records, call [phone] during business hours, M-F 8:00 AM - 5:00 PM Central Time. Record requests for emergency care only can be directed to [phone] at any time.[facility] Encounters Date Type Department Care Team Description 07/04/2023 10:37 AM CDT - 07/04/2023 12:57 PM CDT Surgery [facility]IN OR [address] [place] [phone] Jaxson Rodriguez M.D. APPLICATION EXTERNAL FIXATION LOWER EXTREMITY, KNEE SPANNING 07/04/2023 11:53 AM CDT Anesthesia Event [facility] MAIN OR [address] [place] [phone] Jamir Dye M.D. Corbitt, Rachel E, M.D. 07/03/2023 Clinical Communication Department of Orthopedic Surgery in [place], [place] [address] [place] [phone] Joaquin Kim M.D. 07/03/2023 10:12 PM CDT - Present Hospital Encounter [facility], [facility], [facility], Eighth Floor [address] [place] [phone] Otis Mak M.D. Gibran Thompson D.O. Lisa Mota M.D. Wyles, Cody C, M.D. Fracture Tibial Plateau Closed Initial Left (Primary Dx); Decline Functional Status [R53.81]; Difficulty Walking Orthopedic Cause [R26.2] 07/03/2023 Intake [facility] 06/17/2023 8:15 AM CDT Comprehensive Visit Department of Ophthalmology in [address] [phone] Tyshawn Puga M.D. Cataract Senile Nuclear Sclerosis Bilateral (Primary Dx); Dry Eye Syndrome Bilateral 06/16/2023 8:30 AM CDT Office Visit Department of Family Medicine, [facility], in [address] [phone] Lilli Chacon M.D. Pain Chest Wall (Primary Dx); Obesity Body Mass Index 30-39.9 Adult; Hypercholesterolem ia; Hypothyroidism; Hyperlipidemia Mixed; Iron Deficiency Anemia Screening Exam; Screening Osteoporosis 05/03/2023 1:30 PM CDT Procedure visit Division of Pain Medicine in [address] [phone] Eva Velazco M.D. Pain Chest Wall 05/03/2023 12:45 PM CDT Comprehensive Visit Division of Pain Medicine in [place], [place] [address] [place] [phone] Eva Srivastava APRN, C.N.P., M.S.N. Pain Chest [...] drink = 0.6 oz pur e alcohol) [facility] Utilities Answer Date Recorded In the past 12 months has e [employer], gas, oil, or water company threatened to [...] often do you attend chur ch or restoration services? 1 to 4 times per year 09/13/2021 Do you belong to any clubs o r organizations such as cheondoism groups, unions, fraternal or athletic groups, or [...] Answer Date Recorded PHQ-2 Score 4 06/16/2023 [facility] of Occupat ional Health - Occupational Stress [...] your living situation today? I have a [facility] place to live 07/04/2023 Education Answer Date Recorded What is the highest level of school you have completed or the highest degree you have received? Doctorate 09/05/2018 Sex and Gender Information Value Date Recorded Sex Assigned at Female 12/19/2016 7:29 PM CUSTOMER GREETER Gender Identity Female 12/19/2016 7:29 PM CUSTOMER GREETER Sexual Orientation Lesbian or [place] 03/12/2020 12 :23 PM CUSTOMER GREETER Last Filed Vital Signs Vital Sign Reading [...] Hospital Encounter Post Anesthesia Care Unit in [place] [id number] [place] [phone] Corrina uZniga M.D. [address] [place] [phone] 07/12/2023 7:50 AM CDT - 07/12/2023 11:42 AM CDT Surgery [facility] OR [address] [place] [phone] Corrina Zuniga M.D. [address] [place] [phone] OPEN REDUCTION INTERNAL FIXATION TIBIAL PLATEAU - LEFT, proceed as indicated 08/25/2023 10:00 AM CDT Appointment Department of Radiology in [place], [place] [address], [place] [phone] Lilli Chacon M.D. [address], [place] [phone] 12/19/2023 9:10 AM CUSTOMER GREETER Appointment Department of Laboratory Medicine in [place] [address] [place] [phone] Lilli Chacon M.D. [address] [place] [phone] Scheduled Procedures Name Priority Associated Diagnoses Date/Ti me OPEN REDUCTION INTERNAL FIXA TION TIBIAL PLATEAU 07/12/2023 7:50 AM C DT Medical Devices Implanted Type Area Torch Shearer Device Identifier Shelf Expiration Date Model / Serial / Lot Cplng Ext Fx Crbnfb 5x8 - [id number] Implanted:Qty: 7 on 07/04/2023 by Jaxson Rodriguez M.D. at [facility] Hardware e.g. pins/screws/r ods Partridge 4922-1-010 / / Hilario Ext Fx Crbnfb 17d273 - [id number] Implanted:Qty: 2 on 07/04/2023 by Jaxson Rodriguez M.D. at [facility] Hardware e.g. pins/screws/r ods Hang 4922-8-500 / / Hilario Ext Fx Crbnfb [id number] - [id number] Implanted:Qty: 1 on 07/04/2023 by Jaxson Rodriguez M.D. at [facility] Hardware e.g. pins/screws/r ods Partridge [id number] / / Pin Ext Fx Ss St Apx [id number] - [id number] Implanted:Qty: 1 on 07/04/2023 by Jaxson Rodriguez M.D. at [facility] Hardware e.g. pins/screws/r ods Partridge [id number] / / Pin Ext Fx Ss St Apx 5x180 - [id number] Implanted:Qty: 3 on 07/04/2023 by Jaxson Rodriguez M.D. at [facility] Hardware e.g. pins/screws/r ods [place] [id number] / / Procedures The patient is [...] SKELETAL Routine 07/03/2023 5 :55 PM CDT ND US GUIDE PLC NDL Routine 05/03/2023 1 :30 PM CDT Pain Chest Wall ND INJ TRIGGER PNT<=2 MUS Routine 05/03/2023 1:30 PM CDT Pain Chest Wall BI BREAST SCREENING BILATERAL WITH TOMOSYNTHESIS RAD - Routine (most inpatients and all outpatients) 02/09/2023 8:55 AM CUSTOMER GREETER LIPID PANEL, S Routine 02/02/2023 2:28 PM CUSTOMER GREETER Gain Weight THYROID-STIMULATING HORMONE-SENSITIVE (S-TSH) Routine 02/02/2023 2:28 PM CUSTOMER GREETER Hypothyroidism HCV AB SCRN W/REFLEX TO HCV PCR, S Routine 03/17/2022 10:17 AM CUSTOMER GREETER Screening Test Laboratory COLONOSCOPY Routine 11/26/2019 3:23 [...] CDT Gabriel Hooks M.D. LAB BLOOD ADD-ON [facility] [address] [place] [address], [facility] DTL [facility] [address] [place] [address] * (ABNORMAL) Basic Metabolic Panel (07/08/2023 6:09 AM CDT) Only the most recent of3 resultswithin the time period is included. Pathologist [facility] Potassium, S 3.7 3.6 - 5.2 mmol/L [...] CDT Gabriel Hooks M.D. LAB BLOOD ADD-ON [facility] [address] [place] [address], [facility] DTL [place] [facility] [address] [place] [address] * (ABNORMAL) CBC with Differential, Blood (07/05/2023 [...] CDT Cresencio Reno M.D. LAB BLOOD ADD-ON [facility] [address] [place] [address], [place] DTL [facility] [address] [place] [address] [facility] [address] [place] [address] * CT Knee Left without IV Contrast [...] ETT location: oral VL device: glide scope [place] scope blade size: 3 Tube size: 7 [...] finger. No radiopaqueforeign body. Otis Mak M.D. [facility] NG PROCEDURES * DX Chest [...] lobe. Chest otherwise negative. Otis Mak M.D. [facility] PROCEDURES * Prothrombin Time [...] M.D. LAB BLOOD ADD-ON Performing Organization Address City/[facility] Co de Phone Number [facility] [address] [place] [address], [facility] [address] [place] [address] * Type and Screen (with Reflex Antibody ID) (07/03/2023 10:53 PM CDT) Pathologist [facility] ABORh O Pos Not applicable 07/03/2023 11:19 PM CDT STRM Antibody Screen Negative Negative 07/03/2023 11:34 PM CDT STRM Type & Screen Expiration 07/06/2023 23:59 07/03/2023 11:19 PM CDT STRM Testing Location [place] DEFAULT 07/03/2023 11:00 PM CDT STR Blood (Blood, Venous) 07/03/2023 10:53 PM CDT 07/03/2023 11:00 PM CDT Otis Mak M.D. LAB BLOOD BANK TEST ORDERABLES Performing Organization Address [facility] Co de Phone Number [facility] [address] [place] [address], [facility] STRM [facility] [address] [place] [address] * ECG 12 Lead (07/03/2023 10:32 PM CDT) Pathologist [facility] Ventricular Rate ECG/Min 77 BPM MUSE ND Interval 146 ms MUSE QRSD Interval 76 ms MUSE QT Interval 400 ms MUSE QTC Interval 452 ms MUSE P [place] 50 degrees MUSE R [place] 16 degrees MUSE T Wave [place] 44 degrees MUSE 07/03/2023 10:3 2 PM [...] Mak M.D. ECG ORDERABLES Performing Organization Address [facility] Co de Phone Number MUSE NA * [...] System IMG CT PROCEDURES Performing Organization Address [facility] Co de Phone Number IIMS NA * [...] DIAGNOSTIC IM AGING PROCEDURES IIMS NA * ND INJ TRIGGER PNT<=2 MUS, ND US GUIDE PLC NDL (05/03/2023 1:30 PM [...] fellow participated in the procedure, and the financial reporting consultant was present for the entire procedure. OPERATIVE NOTE INFORMATION Specimens: 0 Drains: 0 Estimated blood loss: 0 Implants: 0 Lilli Chacon M.D. PROCEDURE/MINOR CASTILLO RGICAL ORDERABLES MMODAL NA * (ABNORMAL) Lipid Panel (02/02/2023 2:28 PM CUSTOMER GREETER) Triglycerides 69 mg/dL 02/02/2023 4:41 PM CUSTOMER GREETER OWAT Comment: ----REFERENCE VALUE---- Normal: <150 mg/dL Borderline High: 150-199 mg/dL High: 200-499 mg/dL Very High: > or =500 mg/dL Cholesterol, Total 230(H) mg/dL 2022 4:41 PM CUSTOMER GREETER [place]AT Comment: ----REFERENCE VALUE---- Desirable: < 200 mg/dL Borderline High: 200 - 239 mg/dL High: > or = 240 mg/dL Cholesterol, LDL, Calculated 118 mg/dL 02/02/2023 4:41 PM CUSTOMER GREETER [employer]AT Comment: ----REFERENCE VALUE---- Desirable: <100 mg/dL Above Desirable: 100-129 mg/dL Borderline High: 130-159 mg/dL High: 160-189 mg/dL Very High: >=190 mg/dL ----ADDITIONAL INFORMATION---- LDL cholesterol calculated using the Siu/NIH equation. Cholesterol, HDL 100 >=50 mg/dL 02/03/20 4:41 PM CUSTOMER GREETER OWAT Cholesterol, Non-HDL, Calculated 130 mg/dL 02/02/2023 4:41 PM CUSTOMER GREETER [employer]AT Comment: ----REFERENCE VALUE---- Desirable: <130 mg/dL Above Desirable: 130-159 mg/dL Borderline High: 160-189 mg/dL High: 190-219 mg/dL Very High: > or =220 mg/dL Fasting (8 HR or more) yes 02/02/2023 3:40 PM CUSTOMER GREETER OWAT Blood (Blood, Venous) 02/02/2023 2:28 PM CUSTOMER GREETER 02/02/2023 3:40 PM CUSTOMER GREETER Katie Corona M.D. LAB BLOOD ADD-ON Performing Organization Address City/[facility]/ZIP Co de Phone Number [facility] [address] [place] [address], [facility] in [place] [address] [place] [address] * S-TSH (Thyroid-Stimulating Hormone - Sensitive) (02/02/2023 2:28 PM CUSTOMER GREETER) TSH, Sensitive 0.3 0.3 - 4.2 mIU/L 02/02/2023 4:37 PM CUSTOMER GREETER OWAT Blood (Blood, Venous) 02/02/2023 2:28 PM CUSTOMER GREETER 02/02/2023 3:40 PM CUSTOMER GREETER Lilli Chacon M.D. LAB BLOOD ADD-ON Performing Organization Address City/[facility]/ZIP Co de Phone Number [facility] [address], [place] [address], [facility] OWAT [facility] in [place] [address] [place] [address] * HCV Ab Scrn w/Reflex to HCV PCR, Serum (03/17/2022 10:17 AM CUSTOMER GREETER) HCV Ab Screen, S Negative Negative 03/18/2022 8:10 AM CUSTOMER GREETER [facility] Comment:Avsjth-hx-afdpig rat io is <1.00. Blood (Blood, Venous) 03/17/2022 10:17 AM CUSTOMER GREETER 03/18/2022 7:06 AM CUSTOMER GREETER Lilli Chacon M.D. LAB MICROBIOLOGY - BLOOD ORDERABLES [facility] [address] [place] [address] [facility] [address] [place] [phone] from Last 3 Months or Most Recently Relevant to Health Maintenance Advance Directives For more information, please contact: [phone] * Full Code (Latest Code Status on File) Date Activated Date Inactivated Comments 07/03/2023 11:47 PM Question Answer Comments Full Code: Discussed Care Teams Dumper Mold Cleaner Relationship Specialty Start Date End Date Lilli Chacon M.D. [address] [place] [phone] PCP - General Family Medicine 05/11/21
--- OUTSIDE RECORDS SUMMARY | 2023-07-09 12:58 | XMS_ITS | Encounter Summary ---
Author Organization [facility] Address [address] [place] [address] Care Team Providers Care Insect Control Aide Name Role Phone Lilli Chacon M.D. Primary Care Provider [phone] Reason for Visit * Reason Comments Leg Pain * Auth/Cert (Routine) Specialty Diagnoses / Procedures Referred By Contac t Referred To Contact Diagnoses Fracture Tibial Plateau Closed Initial Left Tib Fib Fracture Procedures EMERGENCY Otis Mak M.D. 200 [place] [address] Referral ID Status Reason Start Date Expiration Date Visits Re quested Visits Authorized [id number] 1 1 Encounter Details Date Type Department Care Team (Latest Contact Info) Description 07/03/2023 10:12 PM CDT - Present Hospital Encounter [facility], [facility], [facility], Eighth Floor [address] [place] [phone] Otis Mak M.D. [address] [place] [phone] Gibran Thompson D.O. [address] [place] [phone] Lisa Mota M.D. [address] [place] [phone] Jaxson Rodriguez M.D. 200 [place] [address] Fracture Tibial Plateau Closed Initial Left (Primary Dx); Decline Functional Status [R53.81]; Difficulty Walking Orthopedic Cause [R26.2] Social History Tobacco Use Types Packs/Day Years Used Date Smoking Tobacco: Former Cigarettes 2002 Smokeless Tobacco: Never Alcohol Use Standard Drinks/Week Comments Yes 2 (1 standard drink = 0.6 oz pur e alcohol) [facility] Utilities Answer Date Recorded In the past 12 months has e electric, gas, oil, or water [employer] threatened to shut off services in your [...] any clubs o r organizations such as sabianist groups, unions, fraternal or athletic groups, or [...] Answer Date Recorded PHQ-2 Score 4 06/16/2023 [facility] of Occupat ional [facility] - Occupational Stress Questionnaire Answer Date Recorded [...] Sex Assigned at Female 12/19/2016 7:29 PM EMPLOYMENT MANAGER Gender Identity Female 12/19/2016 7:29 PM EMPLOYMENT MANAGER Sexual Orientation Lesbian or [place] 03/12/2020 12 :23 PM EMPLOYMENT MANAGER documented as of this encounter Last [...] From 6am-6pm Tuesday-Tuesday, please contact [facility] at [phone] with any questions regarding this patient. If overnight [phone] or any time on weekends, please contact the Orthopedic Surgery house resident front office medical assistant at [phone]. * Hugo Baires, P.T.A. - 07/08/2023 3:19 [...] about patient's nutritional care please contact pager [phone] on weekdays or [phone] on weekends/holidays. * Charisse Rowley L.G.S.W., M.S.W. - 07/08/2023 11:22 AM CDT SUBJECTIVE Social Work continues to follow to assist with discharge needs. Referrals Sent; (1) [facility] - declined 07/06; facility full (2) [facility] - declined; can reconsider after external fixation is removed (3) [facility] - declined; facility full (4) [facility] - pending; left a voicemail with Danna/Admissions 07/06 (5) [facility] - declined; payor source (rounding physicians require Medicare Part B forbilling purposes) (6) [facility]) - declined; can reconsider after externalfixation is removed. New Referrals Sent; (7) [facility] [place] - pending (8) [facility] [place] - pending (9) [facility] - pending Social Work met with Patient and her spouse, Wanda. Social Work shared updates regarding referrals including the barriers of bed availability and Patient's planned readmission. Patient shares the impression from her medical team that she will likely remain in the hospital through her surgery due to this issue. She shares understanding and is appreciative of the care she has received at [facility]. Patient welcomed additional referrals closer to home as needed, including to the [facility] sites. Patient, Social Work, and Wanda also discussed the role of Home Health - for after short-term rehabilitationplacement or another option at hospital discharge should she progress enough to feel comfortable inreturning home. Patient is borrowing a walker from someone she knows and is interested in information for renting a wheelchair. OBJECTIVE [facility] ASSESSMENT / PLAN ASSESSMENT Patient and her spouse, Wanda demonstrate insight into Patient's needs and are engaged in planning. Barriers - Planned Readmission for External Fixation Removal PLAN Patient anticipates discharge to a prison facility or [facility] - referrals pending Social Work will continue to follow to assist with discharge needs and/or to provide supportive visits. Sadaf Ramírez, M.S.W. 07/08/23 * Adeline Chino - 07/08/2023 10:59 AM CDT Occupational Therapy [facility] Hospital Inpatient Treatment SUBJECTIVE Patient's Name: Shreya Douglas Referring/Attending Provider: Jaxson Rodriguez M.D. Reason for Referral: Occupational Therapy Evaluation and Treatment History of Present Illness: Shreya Douglas is a 72 y.o. female who was admitted to [facility] in [place] on 07/03/2023 for Fracture Tibial Plateau Closed [...] vital changes during therapy session. Outcome Measures: [facility] Inpatient Short Form: Putting on and taking [...] at or below 17 Clinicians answer the [facility] Inpatient Short Form based on observed patient activity and/or clinical judgement (ie. patient can be scored without physically performing each activity) Cognition: No observable concerns with cognition at this time Therapeutic Interventions: BED MOBILITY: SUPINE to SIT - Assist Level: Stand By Assist - Device: use of bed rail, head of bed elevated, trapeze, patient utilized gait belt as a leg circulation director - Therapist Delivery: assessed - Assist/Cues: stand [...] Assistance with medication set up/administration, Assistance with corporate statistical financial analyst, Assistance with transportation, Assistance with showering/bathing, Assistance [...] on 07/04/2023 (Dr. Rodriguez weekend coverage with [facility]) #1 Depression Major #2 Hypercholesterolemia #3 [...] From 6am-6pm Tuesday-Tuesday, please contact [facility] at [phone] with any questions regarding this patient. If overnight [phone] or any time on weekends, please contact the Orthopedic Surgery house resident front office medical assistant at [phone]. * Adeline Chino 07/07/2023 3:33 PM CDT Occupational Therapy Acute Hospital Inpatient Treatment SUBJECTIVE Patient's Name: Shreya Douglas Referring/Attending Provider: Jaxson Rodriguez M.D. Reason for Referral: Occupational Therapy Evaluation and Treatment History of Present Illness: Shreya Douglas is a 72 y.o. female who was admitted to [facility] in [place] on 07/03/2023 for Fracture Tibial Plateau Closed [...] at or below 17 Clinicians answer the [facility] Inpatient Short Form based on observed patient [...] patient utilized gait belt as a leg circulation director - Therapist Delivery: assessed, educated - Assist/Cues: [...] Assistance with medication set up/administration, Assistance with corporate statistical financial analyst, Assistance with transportation, Assistance with showering/bathing, Assistance [...] assist with discharge needs. Referrals Sent; (1) [facility] - declined 07/06; facility full (2) [facility] - declined; can reconsider after external fixation is removed (3) [facility] - pending; left a voicemail with Natasha/Admissions 07/06 (4) [facility] - pending; left a voicemail with Danna/Admissions 07/06 (5) [facility] - declined; payor source (rounding physicians require Medicare Part B forbilling purposes) (6) [facility] - declined; can reconsider after externalfixation is removed. OBJECTIVE Patient is currently [facility] ASSESSMENT / PLAN ASSESSMENT Social Work attempted to meet with Patient, but Patient was occupied in other care. Patient was notassessed at this time. Barriers - Planned Readmission for External Fixation Removal PLAN Patient anticipates discharge to a prison facility - referrals pending Social Work will [...] 72 y.o. female who was admitted to [facility] in [place] on 07/03/2023 for Fracture Tibial Plateau Closed [...] vital changes during therapy session. Outcome Measures: [facility] Inpatient Short Form: -[facility] Basic Mobility (V.2) How much help [...] Climbing 3-5 steps with a railing?: Total -[facility] Basic Mobility (V.2) Raw Score: 11 -[facility] Basic Mobility (V.2) Standardized Score: 30.25 Interpretation: Based on scoring guidelines using the raw score value: Those going to home had an average score at or above 18 Those going to facility had an average score at or below 17 Clinicians answer the -[facility] Inpatient Short Form based on observed [...] PT Plan Comments: Train bed mobility; progress xvp-sn-evkcr transfers; progress ambulation with chair follow Functional Goals: PT Inpatient Goals PT Goal #1: Patient will perform bed mobility with with minimal assistance of 1 person without hospital bed features in order to improve functional mobility PT Goal #1 Status: Advanced PT Goal #2: Patient will perform nor-ac-omctr transfers with least restrictive assistive device andminimal [...] min Total Treatment Time (min): 29 min ([id number]) Catia Alejandro P.T., D.P.T. * Gabriel Hooks [...] a child From 6am-6pm Tuesday-Tuesday, please contact [facility] at [phone] with any questions regarding this patient. If overnight [phone] or any time on weekends, please contact the Orthopedic Surgery house resident front office medical assistant at [phone]. * Samantha Garcia V. P.T. - 07/06/2023 4:03 PM CDT Physical Therapy Inpatient Treatment SUBJECTIVE Patient's Name: Shreya Douglas Referring/Attending Provider: Jaxson Rodriguez M.D. Reason for Referral: Physical Therapy Evaluate and Treat History of Present Illness: Shreya Douglas is a 72 y.o. female who was admitted to [facility] in [place] on 07/03/2023 for Fracture Tibial Plateau Closed [...] throughout session; within normal ranges. Outcome Measures: [facility] Inpatient Short Form: [facility] Basic Mobility (V.2) How much help from [...] at or below 17 Clinicians answer the [facility] Inpatient Short Form based on observed patient [...] - 07/06/2023 10:18 AM CDT Occupational Therapy [facility] Inpatient Treatment SUBJECTIVE Patient's Name: Shreya Douglas Referring/Attending Provider: Jaxson Rodriguez M.D. Reason for Referral: Occupational Therapy Evaluation and Treatment History of Present Illness: Shreya Douglas is a 72 y.o. female who was admitted to [facility] in [place] on 07/03/2023 for Fracture Tibial Plateau Closed [...] vital changes during therapy session. Outcome Measures: [facility] Inpatient Short Form: Putting on and taking [...] at or below 17 Clinicians answer the [facility] Inpatient Short Form based on observed patient [...] Assistance with medication set up/administration, Assistance with corporate statistical financial analyst, Assistance with transportation, Assistance with showering/bathing, Assistance [...] a child From 6am-6pm Tuesday-Tuesday, please contact [facility] at [phone] with any questions regarding this patient. If overnight [phone] or any time on weekends, please contact the Orthopedic Surgery house resident front office medical assistant at [phone]. * Christianne Reno D.O. - 07/06/2023 2:50 AM CDT Miiram Lopez Misc Note I came to re-assess [...] her throughout the morning. Christianne Reno DO [facility], pager [phone] * Christianne Reno D.O. - 07/06/2023 1:45 AM CDT [facility] Miscellaneous note I received a page [...] on a blue foam ramp.I contacted the [facility] chief given my concern for compartment syndrome and we gave the patient 0.2 mg IV dilaudid. When Dr. Sommer arrived, she was much more comfortable after receiving dilaudid. We alsoremoved a blanket that was present behind the popliteal fossa. Plan will be to check the patient again in one hour to evaluate her pain and perform another clinical exam. Christianne Reno DO [facility], pager [phone] * Charisse Rowley L.G.S.W., M.S.W. - 07/05/2023 5:23 PM CDT SUBJECTIVE Social Work attempted to meet with Patient x2 earlier in the day; Patient engaged in other care. Social Work unable to return again late in the afternoon. OBJECTIVE Patient is currently [facility] ASSESSMENT / PLAN ASSESSMENT Patient was not assessed at this time. PLAN Social Work to follow up tomorrow to completed assessment. Sadaf Ramírez, M.S.W. 07/05/23 * Quentin Amezquita M.D. - 07/05/2023 12:27 PM CDT [facility] Orthopedic Trauma Surgery [address] [place] [address] Supervisory Progress Note I saw and evaluated [...] team's plan of care. Counseling was provided [id number] at bedside regarding the plan of care [...] PLAN Ms. Romero Douglas is hospitalized on [facility] Orthopedic Trauma Surgery [address] [place] [address] for evaluation and management of Fracture Tibial [...] Consults will sign off. Please page the [facility] Medicine Consult Team 1 pager [phone] with any questions or concerns. The above [...] From 6am-6pm Tuesday-Tuesday, please contact [facility] at [phone] with any questions regarding this patient. If overnight [phone] or any time on weekends, please contact the Orthopedic Surgery house resident front office medical assistant at [phone]. * Toney Anderson M.D. - 07/04/2023 8:25 [...] and provider: Lilli Chacon M.D. (Currently In [place]; moving to [place] per Patient) They were advised of the [...] Wanda. History: None Reported Employment: Retired from [employer] in January; Still Professionally Engaged [employer] Utilities: N/A [employer] Food Insecurity: N/A SDOH Housing: N/A SDAR Intimate Partner Violence: N/A Psychosocial Risk Factors [...] Wanda and their friends. FINANCES/INSURANCE Primary insurance: [employer] ACCESS Secondary insurance: N/A Financial concerns: No ADVANCE DIRECTIVES Advance Directive: Patient has advance directive, copy not in chart OBJECTIVE Suicide Risk and Safety Risk Assessment: Suicidal: No Homicidal: No Current Stressors Current Hospitalization and Medical Status Coping Skills/Strengths Prior Level of Lee Social Support Interests - Retired (Remains Professionally [...] to discharge, Patient anticipates discharging to a prison facility. She anticipates follow-up for removal of her external fixation. A list of prison facility options (that they geographically reside or requested) has been provided to and reviewed with patient. Disclaimers: Financial disclosure provided informing patient of our ownership and financial relationship of the [facility], home health, and hospice agencies. Reviewed [facility] insurance coverage and provided in-network options. Referrals Sent; (1) [facility] - pending (2) [facility] - pending (3) [facility] - pending (4) [facility] - pending (5) [facility] - pending (6) [facility] pending Patient anticipates possibly having her spouse [...] approach. PLAN Patient anticipates discharging to a prison facility - referrals pending. Social Work will [...] 72 y.o. 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 female who was admitted to [facility] in [place] on 07/03/2023 for Fracture Tibial Plateau Closed [...] is brining a front wheeled walker, a supervisor aluminum fabrication , shower chair. Patient is planning to [...] at or below 17 Clinicians answer the [facility] Inpatient Short Form based on observed patient [...] risk RCRI: 3.9% Carey Score (Risk of CA or arrest within 30 days): 0.2% DASI: [...] will continue to follow. Please page the [facility] Medicine Consult Team 1 pager [phone] with any questions or concerns. I personally [...] hypothyroidism, and hypercholesterolemia who presented to the [facility] ED after sustaining a closed left tibial plateau fracture following a ground level fall this afternoon while working in her garden as an ED to ED transfer from [place]. They denied any head injury or loss [...] 3 PM. Medical Comorbidities: Denies any diabetes, CA, stroke, DVT, COPD, history of deep joint [...] to a blood transfusion if necessary. The [facility] multidisciplinary team approach wasdiscussed. Activity: NWB LLE [...] From 6am-6pm Tuesday-Tuesday, please contact [facility] at [phone] with any questions regarding this patient. If overnight [phone] or any time on weekends, please contact the Orthopedic Surgery house resident front office medical assistant at [phone]. Ayaka Trivedi MD Orthopedic Surgery Resident 07/03/23 [...] Chair alarm. WAR. Q2H repositioning. CWMS: PP+2. BUCKET OPERATOR<2secs. + wiggle toes Incision: Ext fix [...] Chair alarm. WAR. Q2H repositioning. CWMS: PP+2. BUCKET OPERATOR<2secs. + wiggle toes Incision:ext fix 4 [...] Diagnosis Fracture Tibial Plateau Closed Initial Left Sql Database Developer A orthopaedic physician assistant actively participated and was necessary for [...] and Orthopedic Surgeon. Otis Mak M.D. 07/03/23 9153 Otis Mak M.D. 07/07/23 5435 * Meka Bowie R.N. - 07/03/2023 10:17 PM CDT Pt arrives via EMS from [place]. Was hanging meyers at home, stepped backwards [...] Hospital Encounter Post Anesthesia Care Unit in [place], [place] [address] [place] [phone] Corrina Zuniga M.D. [address] [place] [phone] 07/12/2023 7:50 AM CDT - 07/12/2023 11:42 AM CDT Surgery [facility]IN OR [address] [place] [phone] Corrina Zuniga M.D. [address] [place] [phone] OPEN REDUCTION INTERNAL FIXATION TIBIAL PLATEAU - LEFT, proceed as indicated 08/25/2023 10:00 AM CDT Appointment Department of Radiology in [place], [place] [address] [place] [address] Lilli Chacon M.D. [address] [place] [phone] 12/19/2023 9:10 AM EMPLOYMENT MANAGER Appointment Department of Laboratory Medicine in [place] [address] [place] [phone] Lilli Chacon M.D. [address] [place] [phone] Scheduled Orders Name Type Priority Associated Diagnoses Order Schedule Incentive Spirometry - RT/RN Respiratory Care Routine [id number] (o emily [id number]) until discontinued starting 07/04/2023 Scheduled Procedures Name [...] M.D. LAB BLOOD ADD-ON Performing Organization Address City/[facility]/ZIP Co de Phone Number [facility] [address] [place] [address], [facility] [address] [place] [address] * (ABNORMAL) CBC without Differential (07/08/2023 6:09 [...] CDT Gabriel Hooks M.D. LAB BLOOD ADD-ON [facility] [address] [place] [address], [facility] DTL [facility] [address] [place] [address] * (ABNORMAL) Basic Metabolic Panel (07/05/2023 6:40 [...] CDT Cresencio Reno M.D. LAB BLOOD ADD-ON [facility] [address] [place] [address], [facility] DTDepartment [facility] [address] [place] [address] * (ABNORMAL) CBC with Differential, Blood (07/05/2023 [...] CDT Cresencio Reno M.D. LAB BLOOD ADD-ON [facility] [address] [place] [address], [facility] DTL [facility] [address] [place] [address] [facility] [address] [place] [address] * CT Knee Left without IV Contrast [...] lobe. Chest otherwise negative. Otis Mak M.D. [facility] DIAGNOSTIC IMAGI NG PROCEDURES * DX Fingers [...] finger. No radiopaqueforeign body. Otis Mak M.D. [facility] DIAGNOSTIC IMAGI NG PROCEDURES * Type and [...] Mak M.D. LAB BLOOD BANK TEST ORDERABLES [facility] [address] [place] [address], [facility] [address] [place] [address] * Basic Metabolic Panel (07/03/2023 10:53 PM [...] CDT Otis Mak M.D. LAB BLOOD ADD-ON [facility] [address] 200 [place] [address] * Prothrombin Time (PT) (07/03/2023 10:53 PM CDT) Pathologist [facility] Prothrombin Time, P 11.7 9.4 - 12.5 sec 07/03/2023 11:04 PM CDT [facility] IN[facility] 1.1 0.9 - 1.1 07/03/2023 11:04 PM CDT [facility] Comment: ----ADDITIONAL INFORMATION---- Standard intensity warfarin therapeutic range: 2.0 to 3.0 ?? High intensity warfarin therapeutic range: 2.5 to 3.5 Blood (Blood, Venous) 07/03/2023 10:53 PM CDT 07/03/2023 10:58 PM CDT Otis Mak M.D. LAB BLOOD ADD-ON [facility] [address] [place] [address], [facility] [address] [place] [address] * (ABNORMAL) CBC with Differential, Blood (07/03/2023 10:53 PM CDT) [facility] Hemoglobin 13.0 11.6 - 15.0 g/dL 07/03/2023 11:01 PM CDT [facility] Hematocrit 39.2 35.5 - 44.9 % [...] CDT Otis Mak M.D. LAB BLOOD ADD-ON [facility] [address] [place] [address], [facility] STMA [facility] [address] [place] [address] DHPM [facility] [address] [place] [address] * ECG 12 Lead (07/03/2023 10:32 PM CDT) Ventricular Rate ECG/Min 77 BPM MUSE OR Interval 146 ms MUSE QRSD Interval 76 ms MUSE QT Interval 400 ms MUSE QTC Interval 452 ms MUSE P [place] 50 degrees MUSE R [place] 16 degrees MUSE T Wave [place] 44 degrees MUSE 07/03/2023 10:3 2 PM [...] - Provider: Grecia Rivera RPrakashN. - Comment: [facility])1200 (Due)1700 (Due)2099 (Due) atorvastatin tablet 20 [...] documented as of this encounter Care Teams Insect Control Aide Relationship Specialty Start Date End Date Lilli Chacon M.D. [address] [place] [address] PCP - General Family Medicine 05/11/21 documented as of this encounter
--- OUTSIDE RECORDS SUMMARY | 2023-07-09 12:58 | XMS_ITS | Encounter Summary ---
Author Organization [facility] Address [address] [place] [address] Care Team Providers Care Anvil Seating Press Operator Name Role Phone Lilli Chacon M.D. Primary Care Provider +1- [phone] Encounter Details Date Type Department Care Team (Late st Contact Info) Description 07/03/2023 Clinical Communication Department of Orthopedic Surgery in [place], [place] [address] [place] [address] Joaquin Kim M.D. [address] [place] [address] Social History Tobacco Use Types Packs/Day Years Used Date Smoking Tobacco: Former Cigarettes 2002 Smokeless Tobacco: Never Alcohol Use Standard Drinks/Week Comments Yes 2 (1 standard drink = 0.6 oz pur e alcohol) [facility] Utilities Answer Date Recorded In the past 12 months has [facility] [employer] gas, oil, or water [employer] threatened to shut off services in your [...] How often do you attend chur or mormonism services? 1 to 4 times per year 09/13/2021 Do you belong to any clubs o r organizations such as moravian groups, unions, fraternal or athletic groups, or [...] Answer Date Recorded PHQ-2 Score 4 06/16/2023 [facility] of Occupat ional Health - Occupational [...] your living situation today? I have a [facility] place to live 07/04/2023 Education Answer Date Recorded What is the highest level of school you have completed or the highest degree you have received? Doctorate 09/05/2018 Sex and Gender Information Value Date Recorded Sex Assigned at Female 12/19/2016 7:29 PM TRAP SETTER Gender Identity Female 12/19/2016 7:29 PM TRAP SETTER Sexual Orientation Lesbian or Turcios 03/12/2020 12 :23 PM TRAP SETTER documented as of this encounter Miscellaneous Notes * Telephone Encounter - Joaquin Kim M.D. - 07/03/2023 9:33 PM CDT ATC call I spoke with the provider caring for the patient in the [facility]. The patient fell from a [...] splint. She will be transferred to the [facility] Emergency Department for further evaluation with [...] Hospital Encounter Post Anesthesia Care Unit in [address] [address] Corrina Zuniga M.D. [address] [place] [phone] 07/12/2023 7:50 AM CDT - 07/12/2023 11:42 AM CDT Surgery RST ROMB MAIN OR [address] [place] [phone] Corrina Zuniga M.D. [address] [place] [phone] OPEN REDUCTION INTERNAL FIXATION TIBIAL PLATEAU - LEFT, proceed as indicated 08/25/2023 10:00 AM CDT Appointment Department of Radiology in [place], [place] [address], [place] [address] Lilli Chacon M.D. [address] [address] 12/19/2023 9:10 AM TRAP SETTER Appointment Department of Laboratory Medicine in [place] [address] [place] [phone] Lilli Chacon M.D. [address], [place] [address] Scheduled Procedures Name Priority Associated Diagnoses Date/Ti me OPEN REDUCTION INTERNAL FIXA TION TIBIAL PLATEAU 07/12/2023 7:50 AM C DT documented as of this encounter Visit Diagnoses Not on filedocumented in this encounter Additional Health Concerns Assessment Noted Time PHQ-9 Depression Total Score: 9 06/16/19 24 7:14 AM CDT documented as of this encounter Care Teams Anvil Seating Press Operator Relationship Specialty Start Date End Date Lilli Chacon M.D. [address] [place] [address] PCP - General Family Medicine 05/11/21 documented as of this encounter
--- OUTSIDE RECORDS SUMMARY | 2023-07-09 12:58 | XMS_ITS ---
Author Organization [facility] Address [address] [place] [address] Care Team Providers Care Camera Mechanic Name Role Phone Unavailable Unavailable Unavailable Surgery Details Not on file Complications Check Surgery Details section. Procedure Estimated Blood Loss Check Surgery Details section. Procedure Findings Check Surgery Details section. Procedure Specimens Taken Check Surgery Details section.
--- OUTSIDE RECORDS SUMMARY | 2023-07-09 12:58 | XMS_ITS | Encounter Summary ---
Author Organization [facility] Address [address] [place] [address] Care Team Providers Care Surplus Property Disposal Agent Name Role Phone Lilli Chacon M.D. Primary Care Provider +1- [phone] Reason for Visit * Auth/Cert (Routine) Specialty Diagnoses / Procedures Referred By Contac t Referred To Contact Diagnoses Fracture Tibial Plateau Closed Initial Left Tib Fib Fracture Procedures EMERGENCY Otis Mak M.D. [address] [place] [address] Referral ID Status Reason Start Date Expiration Date Visits Re quested Visits Authorized [id number] 1 1 Encounter Details Date Type Department Care Team (Late st Contact Info) Description 07/04/2023 11:53 AM CDT Anesthesia Event RST ROMB MAIN OR [address] [place] [phone] Jamir Dye M.D. [address] [place] [phone] Olivia Foley M.D. [address] [place] [phone] Anesthesia Record Procedure Summary Procedure Name Responsible [...] drink = 0.6 oz pur e alcohol) [facility] Utilities Answer Date Recorded In the past 12 months has [employer] gas, oil, or water [employer] threatened to shut off services in your [...] week 09/13/2021 How often do you attend [facility] or synagogue services? 1 to 4 times per year [...] Answer Date Recorded PHQ-2 Score 4 06/16/2023 [facility] - Occupational Stress Questionnaire Answer Date [...] living situation today? I have a [facility] place to live 07/04/2023 Education Answer Date Recorded What is the highest level of school you have completed or the highest degree you have received? Doctorate 09/05/2018 Sex and Gender Information Value Date Recorded Sex Assigned at Female 12/19/2016 7:29 PM LOCK FITTER Gender Identity Female 12/19/2016 7:29 PM LOCK FITTER Sexual Orientation Lesbian or Turcios 03/12/2020 12 :23 PM LOCK FITTER documented as of this encounter OR Notes * Anesthesia Postprocedure Evaluation - Jamir Dye M.D. - 07/04/2023 3:05 PM CDT Patient: Shreya Douglas Procedure Summary Date: 07/04/23 Room / Location: [place] [address] / [facility] in [place], [place] Anesthesia Start: 1153 Anesthesia Stop: 1407 [...] ETT location: oral VL device: glide scope [place] scope blade size: 3 Tube size: 7 [...] no complications * Anesthesia Preprocedure Evaluation - aJmir Dye M.D. - 07/04/2023 10:49 AM CDT Preprocedure Anesthesia & H&P Assessment Procedure Summary Date/Time: 07/04/23 1037 Procedure: APPLICATION EXTERNAL FIXATION LOWER EXTREMITY, KNEE SPANNING (Left) Diagnosis: Fracture Tibial Plateau Closed Initial Left [S82.142A] Pre-op diagnosis: Fracture Tibial Plateau Closed Initial Left [S82.142A] Location: [address] [facility] / [facility] in [place], [place] Providers: Jaxson Rodriguez M.D. Pertinent components [...] with patient /legal guardian or through an asbestos hazard abatement worker. Risks/Benefits/Alternatives of Blood transfusion discussed with patient [...] Hospital Encounter Post Anesthesia Care Unit in [place], [place] [address] [place] [address] Corrina Zuniga M.D. [address] [place] [address] 07/12/2023 7:50 AM CDT - 07/12/2023 11:42 AM CDT Surgery RST ROMB MAIN OR [address] [place] [address] Corrina Zuniga M.D. [address] [place] [address] OPEN REDUCTION INTERNAL FIXATION TIBIAL PLATEAU - LEFT, proceed as indicated 08/25/2023 10:00 AM CDT Appointment Department of Radiology in [place], [place] [address] [place] [address] Lilli Chacon M.D. [address] [place] [phone] 12/19/2023 9:10 AM LOCK FITTER Appointment Department of Laboratory Medicine in [address] [place] [phone] Lilli Chacon M.D. [address] [place] [address] Scheduled Procedures Name Priority Associated [...] ETT location: oral VL device: glide scope [place] scope blade size: 3 Tube size: 7 [...] documented as of this encounter Care Teams Surplus Property Disposal Agent Relationship Specialty Start Date End Date Lilli Chacon M.D. [address] [place] [address] PCP - General Family Medicine 05/11/21 documented as of this encounter
--- OUTSIDE RECORDS SUMMARY | 2023-07-09 12:59 | XMS_ITS | Encounter Summary ---
Author Organization [facility] Address [address] [place] [address] Care Team Providers Care Shelter Supervisor Name Role Phone Lilli Chacon M.D. Primary Care Provider +1- [phone] Reason for Referral * Outpatient (Routine) - Authorized Specialty Diagnoses / Procedures Referred By Contac t Referred To Contact Diagnoses Screening Osteoporosis Procedures BMD Bone Density Spine Hips Lilli Chacon M.D. [address], [place] [address] [facility] Region Referral ID Status Reason Start Date Expiration Date V isits Requested Visits Authorized [id number] Authorized 06/16/2023 06/15/2024 1 1 Reason for Visit * Reason Comments Follow-up * Outpatient (Routine) - Closed Specialty Diagnoses / Procedures Referred By Contac t Referred To Contact Family Medicine Lilli Chacon M.D. [address], [place] [address] [facility] Region Referral ID Status Reason Start Date Expiration Date Visits Re quested Visits Authorized [id number] Closed 01/21/2023 01/20/2026 1 1 Encounter Details Date Type Department Care Team (Late st Contact Info) Description 06/16/2023 8:30 AM CDT Office Visit Department of Family Medicine, [facility] [place], in [place], [place] [address] [address] Lilli Chacon M.D. [address], [place] [address] Pain Chest Wall (Primary Dx); [...] any clubs o r organizations such as christianity groups, unions, fraternal or athletic groups, or [...] Answer Date Recorded PHQ-2 Score 4 06/16/2023 [facility] [place] of Occupat ional Health - Occupational Stress [...] your living situation today? I have a [facility] place to live 10/28/2022 Education Answer Date Recorded What is the highest level of school you have completed or the highest degree you have received? Doctorate 09/05/2018 Sex and Gender Information Value Date Recorded Sex Assigned at Female 12/19/2016 7:29 PM DISPATCHER REFINERY Gender Identity Female 12/19/2016 7:29 PM DISPATCHER REFINERY Sexual Orientation Lesbian or Turcios 03/12/2020 12 :23 PM DISPATCHER REFINERY documented as of this encounter Last Filed [...] Body Mass Index 31.06 03/08/2023 8:15 AM DISPATCHER REFINERY documented in this encounter Progress Notes * [...] trying to be active. Recently returned from [place] and [place]. Did significant walking there. Is [...] Patient had elevated lipids. We reviewed her [place] risk score. She is wondering about increasing [...] aware that I will be moving to [place] in July. I will be in touch with any results. Thereafter I am happy to see her in [facility] or she will be transferred to a new physician here at [facility]. She is happy with the plan [...] Hospital Encounter Post Anesthesia Care Unit in [address] [address] Corrina Zuniga M.D. [address] [place] [phone] 07/12/2023 7:50 AM CDT - 07/12/2023 11:42 AM CDT Surgery RST ROMB MAIN OR [address] [place] [address] Corrina Zuniga M.D. [address] [place] [phone] OPEN REDUCTION INTERNAL FIXATION TIBIAL PLATEAU - LEFT, proceed as indicated 08/25/2023 10:00 AM CDT Appointment Department of Radiology in [place], [place] [address], [place] [phone] Lilli Chacon M.D. [address] [place] [phone] 12/19/2023 9:10 AM DISPATCHER REFINERY Appointment Department of Laboratory Medicine in [place], [place] [address] [place] [phone] Lilli Chacon M.D. [address] [place] [phone] Scheduled Orders Name Type Priority Associated Diagnoses [...] documented as of this encounter Care Teams Shelter Supervisor Relationship Specialty Start Date End Date Lilli Chacon M.D. [address] [place] [address] PCP - General Family Medicine 05/11/21 documented as of this encounter
--- OUTSIDE RECORDS SUMMARY | 2023-07-09 12:59 | XMS_ITS | Encounter Summary ---
Author Organization [facility] Address [address] [place] [address] Care Team Providers Care Product Support Manager Name Role Phone Lilli Chacon M.D. Primary Care Provider +1- [phone] Reason for Visit * Outpatient (Routine) - Closed Specialty Diagnoses / Procedures Referred By Cortes t Referred To Contact Diagnoses Pain Chest Wall Procedures PM Trigger point injection Lilli Chacon M.D. [address] [place] [address] [facility] Referral ID Status Reason Start Date Expiration Date Visits Re quested Visits Authorized [id number] Closed 04/08/2023 04/07/2024 1 1 Encounter Details Date Type Department Care Team (Late st Contact Info) Description 05/03/2023 1:30 PM CDT Procedure visit Division of Pain Medicine in [place], [place] [address] [place] [address] Eva Velazco M.D. [address] [place] [address] Pain Chest Wall Social History Tobacco Use [...] often do you attend chur ch or judaism services? 1 to 4 times per year 09/13/2021 Do you belong to any clubs o r organizations such as gnosticism groups, unions, fraternal or athletic groups, or [...] Answer Date Recorded PHQ-2 Score 2 01/21/2023 [facility] [place] of Occupat ional Health - Occupational Stress [...] your living situation today? I have a [facility] place to live 10/28/2022 Education Answer Date Recorded What is the highest level of school you have completed or the highest degree you have received? Doctorate 09/05/2018 Sex and Gender Information Value Date Recorded Sex Assigned at Female 12/19/2016 7:29 PM HYGIENE COORDINATOR Gender Identity Female 12/19/2016 7:29 PM HYGIENE COORDINATOR Sexual Orientation Lesbian or Turcios 03/12/2020 12 :23 PM HYGIENE COORDINATOR documented as of this encounter Procedure Notes [...] fellow participated in the procedure, and the partner management consultant was present for the entire procedure. OPERATIVE NOTE INFORMATION Specimens: 0 Drains: 0 Estimated blood loss: 0 Implants: 0 documented in this encounter Plan of Treatment Upcoming Encounters Date Type Department Care Team (Latest Contact Info) Description 07/12/2023 7:50 AM CDT Hospital Encounter Post Anesthesia Care Unit in [address] [address] Corrina Zuniga M.D. [address] [place] [address] 07/12/2023 7:50 AM CDT - 07/12/2023 11:42 AM CDT Surgery RST ROMB MAIN OR [facility] [address] [place] [phone] Corrina Zuniga M.D. [address] [place] [address] OPEN REDUCTION INTERNAL FIXATION TIBIAL PLATEAU - LEFT, proceed as indicated 08/25/2023 10:00 AM CDT Appointment Department of Radiology in [place], [place] [address] [place] [address] Lilli Chacon M.D. [address] [place] [phone] 12/19/2023 9:10 AM HYGIENE COORDINATOR Appointment Department of Laboratory Medicine in [address] [place] [phone] Lilli Chacon M.D. [address] [place] [phone] Scheduled Procedures Name Priority Associated Diagnoses Date/Ti me OPEN REDUCTION INTERNAL FIXA TION TIBIAL PLATEAU 07/12/2023 7:50 AM C DT documented as of this encounter Procedures Procedure Name Priority Date/Time Associated Diagnosis Comments SC US GUIDE PLC NDL Routine 05/03/2023 1 :30 PM CDT Pain Chest Wall SC INJ TRIGGER PNT<=2 MUS Routine 05/03/2023 1:30 PM CDT Pain Chest Wall documented in this encounter Results * SC INJ TRIGGER PNT<=2 MUS, SC US GUIDE PLC NDL (05/03/2023 1:30 PM [...] fellow participated in the procedure, and the partner management consultant was present for the entire [...] Total Score: 5 01/22/20 23 12:09 AM HYGIENE COORDINATOR documented as of this encounter Care Teams Product Support Manager Relationship Specialty Start Date End Date Lilli Chacon M.D. [address] [phone] PCP - General Family Medicine 05/11/21 documented as of this encounter
--- OUTSIDE RECORDS SUMMARY | 2023-07-09 12:59 | XMS_ITS | Encounter Summary ---
Author Organization [facility] Address [address] [place] [address] Care Team Providers Care Viscosity Tester Name Role Phone Lilli Chacon M.D. Primary Care Provider +1- [phone] Reason for Visit * Reason Onset Date Comments Communication 03/21/2023 Encounter Details Date Type Department Care Team (Late st Contact Info) Description 03/21/2023 Clinical Communication Department of Family Medicine, [facility], in [place], [place] [address] [address] Lilli Chacon M.D. [address] [address] Communication Social History Tobacco Use [...] week 09/13/2021 How often do you attend [facility] or baptism services? 1 to 4 times per year 09/13/2021 Do you belong to any clubs o r organizations such as congregation groups, unions, fraternal or athletic groups, or [...] Date Recorded PHQ-2 Score 2 01/21/2023 [facility] of Occupat ional Health - Occupational Stress [...] your living situation today? I have a [facility] place to live 10/28/2022 Education Answer Date Recorded What is the highest level of school you have completed or the highest degree you have received? Doctorate 09/05/2018 Sex and Gender Information Value Date Recorded Sex Assigned at Female 12/19/2016 7:29 PM AUTOMOBILE TESTER Gender Identity Female 12/19/2016 7:29 PM AUTOMOBILE TESTER Sexual Orientation Lesbian or Turcios 03/12/2020 12 :23 PM AUTOMOBILE TESTER documented as of this encounter Plan of Treatment Upcoming Encounters Date Type Department Care Team (Latest Contact Info) Description 07/12/2023 7:50 AM CDT Hospital Encounter Post Anesthesia Care Unit in [place], [place] [address] [place] [phone] Corrina Zuniga M.D. [address] [place] [address] 07/12/2023 7:50 AM CDT - 07/12/2023 11:42 AM CDT Surgery RST ROMB MAIN OR [address] [place] [phone] Corrina Zuniga M.D. [address] [place] [address] OPEN REDUCTION INTERNAL FIXATION TIBIAL PLATEAU - LEFT, proceed as indicated 08/25/2023 10:00 AM CDT Appointment Department of Radiology in [place], [place] [address] [place] [phone] Lilli Chacon M.D. [address] [place] [phone] 12/19/2023 9:10 AM AUTOMOBILE TESTER Appointment Department of Laboratory Medicine in [place] [address] [place] [address] Lilli Chacon M.D. [address] [place] [phone] Scheduled Procedures Name Priority Associated Diagnoses Date/Ti me OPEN REDUCTION INTERNAL FIXA TION TIBIAL PLATEAU 07/12/2023 7:50 AM C DT documented as of this encounter Visit Diagnoses Not on filedocumented in this encounter Additional Health Concerns Assessment Noted Time PHQ-9 Depression Total Score: 5 01/22/20 23 12:09 AM AUTOMOBILE TESTER documented as of this encounter Care Teams Viscosity Tester Relationship Specialty Start Date End Date Lilli Chacon M.D. [address] [phone] PCP - General Family Medicine 05/11/21 documented as of this encounter
--- OUTSIDE RECORDS SUMMARY | 2023-07-09 12:59 | XMS_ITS | Encounter Summary ---
Author Organization [facility] Address [address] [place] [address] Care Team Providers Care Resident Care Technician Name Role Phone Lilli Chacon M.D. Primary Care Provider +1- [phone] Encounter Details Date Type Department Care Team (Late st Contact Info) Description 04/07/2023 Clinical Communication Department of Family Medicine, [facility], in [place], [place] [address] [place] [address] Lilli Chacon M.D. [address] [place] [phone] Social History Tobacco Use Types Packs/Day [...] often do you attend chur ch or yazdanism services? 1 to 4 times per year 09/13/2021 Do you belong to any clubs o r organizations such as baptist groups, unions, fraternal or athletic groups, or [...] Answer Date Recorded PHQ-2 Score 2 01/21/2023 [facility] - Occupational Stress Questionnaire Answer Date Recorded [...] your living situation today? [facility] 10/28/2022 Education Answer Date Recorded What is the highest level of school you have completed or the highest degree you have received? Doctorate 09/05/2018 Sex and Gender Information Value Date Recorded Sex Assigned at Female 12/19/2016 7:29 PM METAL RIVETING MACHINE OPERATOR Gender Identity Female 12/19/2016 7:29 PM METAL RIVETING MACHINE OPERATOR Sexual Orientation Lesbian or Turcios 03/12/2020 12 :23 PM METAL RIVETING MACHINE OPERATOR documented as of this encounter Plan of Treatment Upcoming Encounters Date Type Department Care Team (Latest Contact Info) Description 07/12/2023 7:50 AM CDT Hospital Encounter Post Anesthesia Care Unit in [place], [place] [address] [place] [phone] Corrina Zuniga M.D. [address] [place] [address] 07/12/2023 7:50 AM CDT - 07/12/2023 11:42 AM CDT Surgery RST ROMB MAIN OR [address] [place] [phone] Corrina Zuniga M.D. [address] [place] [address] OPEN REDUCTION INTERNAL FIXATION TIBIAL PLATEAU - LEFT, proceed as indicated 08/25/2023 10:00 AM CDT Appointment Department of Radiology in [place], [place] [address], [place] [address] Lilli Chacon M.D. [address] [place] [phone] 12/19/2023 9:10 AM METAL RIVETING MACHINE OPERATOR Appointment Department of Laboratory Medicine in [place] [address] [place] [address] Lilli Chacon M.D. [address] [place] [phone] Scheduled Procedures Name Priority Associated Diagnoses Date/Ti me OPEN REDUCTION INTERNAL FIXA TION TIBIAL PLATEAU 07/12/2023 7:50 AM C DT documented as of this encounter Visit Diagnoses Diagnosis Pain Chest Wall- Primary documented in this encounter Additional Health Concerns Assessment Noted Time PHQ-9 Depression Total Score: 5 01/22/20 23 12:09 AM METAL RIVETING MACHINE OPERATOR documented as of this encounter Care Teams Resident Care Technician Relationship Specialty Start Date End Date Lilli Chacon M.D. [address] [place] [phone] PCP - General Family Medicine 05/11/21 documented as of this encounter
--- OUTSIDE RECORDS SUMMARY | 2023-07-09 12:59 | XMS_ITS | Encounter Summary ---
Author Organization [facility] Address [address] [place] [address] Care Team Providers Care Creative Recruiter Name Role Phone Lilli Chacon M.D. Primary Care Provider +1- [phone] Encounter Details Date Type Department Care Team (Latest Contact Info) Description 07/03/2023 Intake [facility] Social History Tobacco Use Types Packs/Day Years Used Date Smoking Tobacco: Former Cigarettes 2002 Smokeless Tobacco: Never Alcohol Use Standard Drinks/Week Comments Yes 2 (1 standard drink = 0.6 oz pur e alcohol) [facility] Utilities Answer Date Recorded In the [...] often do you attend chur ch or episcopal services? 1 to 4 times per year 09/13/2021 Do you belong to any clubs o r organizations such as alevism groups, unions, fraternal or athletic groups, or [...] Answer Date Recorded PHQ-2 Score 4 06/16/2023 [facility] - Occupational [...] your living situation today? I have a [facility] place to live 07/04/2023 Education Answer Date Recorded What is the highest level of school you have completed or the highest degree you have received? Doctorate 09/05/2018 Sex and Gender Information Value Date Recorded Sex Assigned at Female 12/19/2016 7:29 PM AIRPORT OPERATIONS MANAGER Gender Identity Female 12/19/2016 7:29 PM AIRPORT OPERATIONS MANAGER Sexual Orientation Lesbian or Turcios 03/12/2020 12 :23 PM AIRPORT OPERATIONS MANAGER documented as of this encounter Last [...] Hospital Encounter Post Anesthesia Care Unit in [place], [place] [address] [place] [address] Corrina Zuniga M.D. [address] [place] [address] 07/12/2023 7:50 AM CDT - 07/12/2023 11:42 AM CDT Surgery RST ROMB MAIN OR [address] [place] [address] Corrina Zuniga M.D. [address] [place] [address] OPEN REDUCTION INTERNAL FIXATION TIBIAL PLATEAU - LEFT, proceed as indicated 08/25/2023 10:00 AM CDT Appointment Department of Radiology in [place], [place] [address] [phone] Lilli Chacon M.D. [address] [phone] 12/19/2023 9:10 AM AIRPORT OPERATIONS MANAGER Appointment Department of Laboratory Medicine in [place], [place] [address] [place] [address] Lilli Chacon M.D. [address] [phone] Scheduled Procedures Name Priority Associated Diagnoses Date/Ti me OPEN REDUCTION INTERNAL FIXA TION TIBIAL PLATEAU 07/12/2023 7:50 AM C DT documented as of this encounter Visit Diagnoses Not on filedocumented in this encounter Additional Health Concerns Assessment Noted Time PHQ-9 Depression Total Score: 9 06/16/19 24 7:14 AM CDT documented as of this encounter Care Teams Creative Recruiter Relationship Specialty Start Date End Date Lilli Chacon M.D. [address] [phone] PCP - General Family Medicine 05/11/21 documented as of this encounter
--- OUTSIDE RECORDS SUMMARY | 2023-07-09 12:59 | XMS_ITS | Encounter Summary ---
Author Organization [facility] Address [address] [place] [address] Care Team Providers Care Technical Training Instructor Name Role Phone Lilli Chacon M.D. Primary Care Provider +1- [phone] Encounter Details Date Type Department Care Team (Latest Contact Info) Description 05/03/2023 12:45 PM CDT Comprehensive Visit Division of Pain Medicine in [place], [place] [address] [place] [address] Eva Srivastava, BALBIR, C.N.P., M.S.N. [address] [place] [phone] Pain Chest Wall (Primary Dx) Social History [...] How often do you attend chur or pentecostalism services? 1 to 4 times per year 09/13/2021 Do you belong to any clubs o r organizations such as hindu groups, unions, fraternal or athletic groups, or [...] Answer Date Recorded PHQ-2 Score 2 01/21/2023 [facility]at ional [facility] - [...] your living situation today? I have a [facility] [employer] [employer] place to live 10/28/2022 Education Answer Date Recorded What is the highest level of school you have completed or the highest degree you have received? Doctorate 09/05/2018 Sex and Gender Information Value Date Recorded Sex Assigned at Female 12/19/2016 7:29 PM BIBLE WORKER Gender Identity Female 12/19/2016 7:29 PM BIBLE WORKER Sexual Orientation Lesbian or Turcios 03/12/2020 12 :23 PM BIBLE WORKER documented as of this encounter Last Filed [...] 2 spots left. NEURO: STRENGTH: 5/5, 5/5 taffy puller strength MENTAL: Alert, oriented, appropriate mood and [...] Hospital Encounter Post Anesthesia Care Unit in [place] [id number] [place] [phone] Corrina Zuniga M.D. [address] [place] [phone] 07/12/2023 7:50 AM CDT - 07/12/2023 11:42 AM CDT Surgery RST ROMB MAIN OR [address] [place] [phone] Corrina Zuniga M.D. [address] [place] [address] OPEN REDUCTION INTERNAL FIXATION TIBIAL PLATEAU - LEFT, proceed as indicated 08/25/2023 10:00 AM CDT Appointment Department of Radiology in [place], [place] [address], [place] [phone] Lilli Chacon M.D. [address] [place] [phone] 12/19/2023 9:10 AM BIBLE WORKER Appointment Department of Laboratory Medicine in [place], [place] [address] [place] [address] Lilli Chacon M.D. [address] [phone] Scheduled Procedures Name Priority Associated Diagnoses Date/Ti me OPEN REDUCTION INTERNAL FIXA TION TIBIAL PLATEAU 07/12/2023 7:50 AM C DT documented as of this encounter Visit Diagnoses Diagnosis Pain Chest Wall- Primary documented in this encounter Additional Health Concerns Assessment Noted Time PHQ-9 Depression Total Score: 5 01/22/20 23 12:09 AM BIBLE WORKER documented as of this encounter Care Teams Technical Training Instructor Relationship Specialty Start Date End Date Lilli Chacon M.D. [address] [phone] PCP - General Family Medicine 05/11/21 documented as of this encounter
--- OUTSIDE RECORDS SUMMARY | 2023-07-09 12:59 | XMS_ITS | Encounter Summary ---
Author Organization [facility] Address [address] [place] [address] Care Team Providers Care Consumer Loan Underwriter Name Role Phone Thanh Chacon M.D. Primary Care Provider +1- [phone] Reason for Referral * Outpatient (Routine) - Closed Specialty Diagnoses / Procedures Referred By Contac t Referred To Contact Diagnoses Pain Chest Wall Procedures PM Trigger point injection Thanh Chacon M.D. [address] [place] [address] [facility] Referral ID Status Reason Start Date Expiration Date Visits Re quested Visits Authorized [id number] Closed 04/08/2023 04/07/2024 1 1 TING AND PUMPING SUPERVISOR Reason for Visit * Reason Onset Date Comments Communication 04/07/2023 Encounter Details Date Type Department Care Team (Late st Contact Info) Description 04/07/2023 Clinical Communication Department of Family Medicine, [facility], in [place], [place] [address] [place] [phone] Thanh Chacon M.D. [address] [place] [phone] Communication Social History Tobacco Use Types [...] How often do you attend chur or samaritan services? 1 to 4 times per year [...] Answer Date Recorded PHQ-2 Score 2 01/21/2023 [facility] Answer Date [...] living situation today? I have a [facility] place to live 10/28/2022 Education Answer Date Recorded What is the highest level of school you have completed or the highest degree you have received? Doctorate 09/05/2018 Sex and Gender Information Value Date Recorded Sex Assigned at Female 12/19/2016 7:29 PM TREATING AND PUMPING SUPERVISOR Gender Identity Female 12/19/2016 7:29 PM TREATING AND PUMPING SUPERVISOR Sexual Orientation Lesbian or Turcios 03/12/2020 12 :23 PM TREATING AND PUMPING SUPERVISOR documented as of this encounter Miscellaneous Notes * Telephone Encounter - Alyson Perry - 04/08/2023 1:29 PM CST Images from the original note were not included. Shreya is aware and pleased. Thanks again. Alyson 04/08/23 TING AND PUMPING SUPERVISOR * Addendum Note - Thanh Chacon M.D. - 04/08/2023 12:40 PM CSTAddended by: THANH CHACON on: 04/08/2023 12:40 PM Modules accepted: Orders TING AND PUMPING SUPERVISOR * Addendum Note - Alyson Perry - 04/08/2023 12:00 PM CSTAddended by: ALYSON PERRY on: 04/08/2023 12:00 PM Modules accepted: Orders TING AND PUMPING SUPERVISOR * Addendum Note - Thanh Chacon M.D. - 04/08/2023 11:45 AM CSTAddended by: THANH CHACON on: 04/08/2023 11:45 AM Modules accepted: Orders TING AND PUMPING SUPERVISOR * Telephone Encounter - Alyson Perry - 04/08/2023 11:[address] Chacon Calling back dept- [id number]. Order pended to this encounter. Thank you, Alyson Referrals 04/08/23 TING AND PUMPING SUPERVISOR * Addendum Note - Thanh Chacon M.D. - 04/08/2023 10:40 AM CSTAddended by: THANH CHACON on: 04/08/2023 10:40 AM Modules accepted: Orders TING AND PUMPING SUPERVISOR * Telephone Encounter - Alyson Perry - [...] point injections we could do preprocedure evaluation. TING AND PUMPING SUPERVISOR * Telephone Encounter - Thanh Chacon M.D. - 04/08/2023 7:37 AM TREATING AND PUMPING SUPERVISOR Yes, it is for a chest wall trigger point injection please. Thank you. TING AND PUMPING SUPERVISOR documented in this encounter Plan of Treatment Upcoming Encounters Date Type Department Care Team (Latest Contact Info) Description 07/12/2023 7:50 AM CDT Hospital Encounter Post Anesthesia Care Unit in [place], [place] [address] [place] [phone] Corrina Zuniga M.D. [address] [place] [phone] 07/12/2023 7:50 AM CDT - 07/12/2023 11:42 AM CDT Surgery RST ROMB MAIN OR [address] [place] [phone] Corrina Zuniga M.D. [address] [place] [phone] OPEN REDUCTION INTERNAL FIXATION TIBIAL PLATEAU - LEFT, proceed as indicated 08/25/2023 10:00 AM CDT Appointment Department of Radiology in [place], [place] [address] [place] [phone] Thanh Chacon M.D. [address] [place] [phone] 12/19/2023 9:10 AM TREATING AND PUMPING SUPERVISOR Appointment Department of Laboratory Medicine in [place] [address] [address] [facility] [phone] Thanh Chacon M.D. [address] [facility] [place] [address] Scheduled Procedures Name Priority Associated Diagnoses Date/Ti me OPEN REDUCTION INTERNAL FIXA TION TIBIAL PLATEAU 07/12/2023 7:50 AM C DT documented as of this encounter Results * CA INJ TRIGGER PNT<=2 MUS, CA US GUIDE PLC NDL (05/03/2023 1:30 PM [...] fellow participated in the procedure, and the information systems consultant was present for the entire procedure. OPERATIVE NOTE INFORMATION Specimens: 0 Drains: 0 Estimated blood loss: 0 Implants: 0 Thanh Chacon M.D. PROCEDURE/MINOR CASTILLO RGICAL ORDERABLES MMODAL NA documented in this encounter Visit Diagnoses Diagnosis Pain Chest Wall- Primary Pain Chest Wall documented in this encounter Additional Health Concerns Assessment Noted Time PHQ-9 Depression Total Score: 5 01/22/20 23 12:09 AM TREATING AND PUMPING SUPERVISOR documented as of this encounter Care Teams Consumer Loan Underwriter Relationship Specialty Start Date End Date Thanh Chacon M.D. NPSofía: [phone] [address] [place] [phone] PCP - General Family Medicine 05/11/21 documented as of this encounter
--- OUTSIDE RECORDS SUMMARY | 2023-07-09 12:59 | XMS_ITS | Encounter Summary ---
Author Organization [facility] Address [address] [place] [address] Care Team Providers Care Civil Lawyer Name Role Phone Lilli Chacon M.D. Primary Care Provider +1- [phone] Reason for Referral * Outpatient (Routine) - Authorized Specialty Diagnoses / Procedures Referred By Cortes mak Referred To Contact Procedures OPH General eye exam Tyshawn Puga M.D. [address] [place] [address] [facility] Region Referral ID Status Reason Start Date Expiration Date V isits Requested Visits Authorized [id number] Authorized 06/17/2023 06/16/2024 1 1 Reason for Visit * Reason Comments Eye Exam * Appointment Request (Routine) - Closed Specialty Diagnoses / Procedures Referred By Cortes mak Referred To Contact Ophthalmology Referral ID Status Reason Start Date Expiration Date Visits Re quested Visits Authorized [id number] Closed 04/06/2023 04/05/2024 1 1 Encounter Details Date Type Department Care Team (Latest Contact Info) Description 06/17/2023 8:15 AM CDT Comprehensive Visit Department of Ophthalmology in [place], [place] [address] [place] [address] Tyshawn Puga M.D. [address] [address] Cataract Senile Nuclear Sclerosis Bilateral [...] often do you attend chur ch or buddhism services? 1 to 4 times per year [...] Answer Date Recorded PHQ-2 Score 4 06/16/2023 [facility] of Occupat ional Health - Occupational Stress [...] Sex Assigned at Female 12/19/2016 7:29 PM E TAILER Gender Identity Female 12/19/2016 7:29 PM E TAILER Sexual Orientation Lesbian or Turcios 03/12/2020 12 :23 PM E TAILER documented as of this encounter Progress Notes [...] Hospital Encounter Post Anesthesia Care Unit in [place], [place] [address] [place] [phone] Corrina Zuniga M.D. [address] [place] [address] 07/12/2023 7:50 AM CDT - 07/12/2023 11:42 AM CDT Surgery RST ROMB MAIN OR [address] [place] [phone] Corrina Zuniga M.D. [address] [place] [phone] OPEN REDUCTION INTERNAL FIXATION TIBIAL PLATEAU - LEFT, proceed as indicated 08/25/2023 10:00 AM CDT Appointment Department of Radiology in [place], [place] [address] [place] [address] Lilli Chacon M.D. [address] [place] [address] 12/19/2023 9:10 AM E TAILER Appointment Department of Laboratory Medicine in [place] [address] [place] [phone] Lilli Chacon M.D. [address] [place] [phone] Scheduled Orders Name Type Priority Associated Diagnoses [...] documented as of this encounter Care Teams Civil Lawyer Relationship Specialty Start Date End Date Lilli Chacon M.D. [address] [place] [phone] PCP - General Family Medicine 05/11/21 documented as of this encounter
== END 2023-07-03 20:51 | disposition home or self-care (01) ==
LOC: AMB 07-09 12:55
PROVIDERS: PCP Family Medicine; Visit Provider Family Medicine
DX: S82.202S Unspecified fracture of shaft of left tibia, sequela (principal)
CPT/HCPCS: A0425; A0433

== ENCOUNTER 2024-02-23 14:00 | Outpatient (RCR) | payer BC, OTHER, SELFPAY ==
[2024-01-26 10:36] LABS: Basophils Absolute Auto 0.07 K/uL (0.00-0.30); Basophils Percent Auto 1.2 % (0.0-3.0); Eosinophils Absolute Auto 0.24 K/uL (0.00-0.50); Hematocrit 34.8 % (33.0-51.0); Hemoglobin* 10.8 gm/dL (12.0-16.0); Immature Granulocytes Abs Auto 0.01 K/uL (0.00-0.30); Immature Granulocytes Pct Auto 0.2 %; Lymphocytes Absolute Auto 1.26 K/uL (0.90-2.90); Lymphocytes Percent Auto 21.2 % (20-44); Mean Corpuscular HGB Conc 31 gm/dL (32-36); Mean Corpuscular Hemoglobin 28 pg (26-34); Mean Corpuscular Volume 89 fL (80-100); Monocytes Percent Auto 7.7 % (0.0-11.0); Neutrophils Absolute Auto 3.91 K/uL (1.7-7.0); Neutrophils Percent Auto 65.7 % (42.0-72.0); Platelet Count* 354 K/uL (140-440); RDW Coefficient of Variation % 15.4 % (11.5-15.5); Red Blood Count 3.92 m/uL (4.00-5.20); White Blood Count* 5.95 K/uL (4.50-11.00)
[2024-01-26 10:39] LABS: Slide Review Reflex No
[2024-01-26 10:52] LABS: Creatinine* 0.7 mg/dL (0.5-1.5); Estimated Glomerular Filt Rate 91 ml/min
[2024-01-26 10:53] LABS: Alanine Aminotransferase* 17 U/L (4-35); Alkaline Phosphatase* 151 U/L (40-150)
[2024-01-26 10:57] VITALS: BP 131/81; PULSE 93; RESP 16; TEMP 36.1; O2SAT 99
[2024-01-26] MEDS: SODIUM CHLORIDE 0.9 % (FLUSH) 10 ML SYRINGE IVF (10:59)
[2024-02-02 09:00] LABS: Basophils Absolute Auto 0.08 K/uL (0.00-0.30); Basophils Percent Auto 1.6 % (0.0-3.0); Eosinophils Absolute Auto 0.35 K/uL (0.00-0.50); Hemoglobin* 11.1 gm/dL (12.0-16.0); Immature Granulocytes Abs Auto 0.01 K/uL (0.00-0.30); Immature Granulocytes Pct Auto 0.2 %; Lymphocytes Absolute Auto 1.31 K/uL (0.90-2.90); Lymphocytes Percent Auto 26.1 % (20-44); Mean Corpuscular HGB Conc 31 gm/dL (32-36); Mean Corpuscular Hemoglobin 28 pg (26-34); Mean Corpuscular Volume 91 fL (80-100); Monocytes Percent Auto 8.8 % (0.0-11.0); Neutrophils Absolute Auto 2.82 K/uL (1.7-7.0); Neutrophils Percent Auto 56.3 % (42.0-72.0); Platelet Count* 310 K/uL (140-440); RDW Coefficient of Variation % 15.7 % (11.5-15.5); Red Blood Count 3.97 m/uL (4.00-5.20); White Blood Count* 5.01 K/uL (4.50-11.00)
[2024-02-02 09:02] LABS: Slide Review Reflex No
[2024-02-02 09:18] LABS: Alanine Aminotransferase* 13 U/L (4-35); Alkaline Phosphatase* 144 U/L (40-150); Creatinine* 0.7 mg/dL (0.5-1.5); Estimated Glomerular Filt Rate 91 ml/min
--- OUTSIDE RECORDS SUMMARY | 2024-02-09 07:07 | XMS_ITS | Clinical Summary ---
Author Organization [facility] Address [place], [place] [address] Care Team Providers Care Cad Specialist Name Role Phone Lilli Chacon MD Primary Care Provider + Allergies No known active allergies Medications buPROPion (WELLBUTRIN XL) 300 mg Extended-Release tablet [...] 20 mg by mouth once daily. Active GLUCOSAM-CHONDRO ITIN-DIET CB25 ORAL Take by mouth. Active CHROMIUM/HERBAL COMPLEX NO.238 (GREEN TEA, W/MET.ENHAN.BLEN D, ORAL) Take by mouth. Active levothyroxine (SYNTHROID) 100 mcg tablet Take 100 mcg by mouth before breakfast. Active zl-du-xcguhn #[id number] l 100 mg tab Take 1 Tab by [...] Date Smoking Tobacco: Former Smokeless Tobacco: Never Comments Unknown Sex and Gender Information Value Date Recorded Sex Assigned at Not on file Legal Sex Female 6:03 AM CHEMICAL LABORATORY TECHNICIAN Gender Identity Not on file Sexual Orientation Not on file Obstetrics History Last Filed Vital Signs Vital Sign Reading Time Taken Comments Blood Pressure 119/68 10/04/2016 12:30 PM CDT Pulse 72 10/04/2016 12:30 PM CDT Temperature 36.6 C (97.9 F) 10/04/2016 9:55 AM CDT Respiratory Rate 20 10/04/2016 12:30 PM CDT [...] 75 10/23/1995 Lipids for age 45-75 10/23/1995 Pneumococcal series for age 50+ (1 of 1 - PCV) 2000 Zoster (shingles) series for age 50+ (1 of 2) 2000 DEXA/DXA scan for age 65+ 10/23/2015 BMI (ht and wt on same day) for age 18+ 09/16/2017 09/16/2016 COVID-19 vaccine series ( season) 2023 05/14/2021, 12/02/2020, 05/09/2020, Additional history exists Influenza for age 65+ 10/09/2023 Mammogram for age 45-75 02/10/2024 02/09/19 24, 03/09/2022, 02/24/2021, Additional history exists RSV vaccine for adults or (1 - 1-dose 75+ series) 2025 Procedures Procedure Name Priority Date/Time Associated Diagnosis Comments XR MAMMO ANSELMO BILAT SCREEN Routine 02/09/2023 8:55 AM CHEMICAL LABORATORY TECHNICIAN Visit for screening mammogram from Last 3 Months or Most Recently Relevant to Health Maintenance Results * XR MAMMO ANSELMO BILAT SCREEN (02/09/2023 8:55 AM CHEMICAL LABORATORY TECHNICIAN) Anatomical Region Laterality Modality BREASTS, Breast Left, Breast Right Bilateral Mammography Impressions 02/09/2023 10:21 AM CHEMICAL LABORATORY TECHNICIAN There is no radiographic evidence for malignancy. Recommend annual mammograms. MAMMOGRAM ASSESSMENT: ACR 1 Negative PATIENTS: You will also receive a letter with your examination results in an easy to read format. If you have questions about your results, please contact your referring provider. Narrative 02/09/2023 10:21 AM CHEMICAL LABORATORY TECHNICIAN For Patients: As a result of the Century Cures Act, medical imaging exams and procedure reports are released immediately into your electronic medical record. You may view this report before your referring provider. If you have questions, please contact your health care provider. XR MAMMO ANSELMO BILAT SCREEN [[id number]] CLINICAL HISTORY: This is an asymptomatic 72 y.o. patient. INDICATION FOR EXAM: Mammogram Screening. TECHNIQUE: CC & MLO views were obtained. This study was evaluated with the assistance of Computer-Aided Detection. Breast Tomosynthesis was used in interpretation. COMPARISON FILM: Yes 03/09/22 [facility] 02/24/21 [facility] FINDINGS: The breasts have scattered areas of fibroglandular density. There are no dominant masses, suspicious micro calcifications or areas of architectural distortion. Lilli Chacon MD MAMMO Final Re sult from Last 3 Months or Most Recently Relevant [place] [id number] MEDICARE PART A HB ONLY Advance Directives * Full Code (Latest Code Status on File) Date Activated Date Inactivated Comments 10/04/2016 9:28 AM 10/04/2016 2:51 PM Care Teams Cad Specialist Relationship Specialty Start Date End Date Lilli Chacon MD PCP - General Family Practice 02/08/23
--- OUTSIDE RECORDS SUMMARY | 2024-02-09 07:07 | XMS_ITS | Clinical Summary ---
Author Organization [facility] Address [address] [place] [address] Care Team Providers Care Professor Of Spanish Name Role Phone Treasure Baires M.D. Primary Care Provider Source Comments Patient records contain information from all sites at [facility]. For routine questions regarding patient records, call [phone] during business hours, M-F 8:00 AM - 5:00 PM Central Time. Record requests for emergency care only can be directed to [phone] at any time.[facility] Allergies Active Allergy Reactions Criticality Noted Date Comments Chlorine Rash 06/04/2020 Medications EPINEPHrine (EpiPen) 0.3 mg/0.3 mL injection syringeIndica tions:Allergy Personal History Inject 0.3 mL (0.3 mg total) intramuscularly as needed for anaphylaxis. Inject into the thigh. 1 each 1 022 Active acetaminophen (TYLENOL) 500 mg tablet Take 2 tablets (1,000 mg total) by mouth every 6 (six) hours as needed for pain. 024 Active calcium citrate-vitam in D3 (CITRACAL+D) 315 mg-5 mcg (200 Unit) per tablet Take 2 tablets by mouth daily with breakfast. 06/07/2 024 Active sennosides-do cusate sodium (SENOKOT-S) 8.6-50 mg per tablet Take 1 tablet by mouth at bedtime as needed for constipation. Active polyethylene glycol (MIRALAX) 17 gram powder packet Take 1 packet by mouth daily as needed for constipation. Dissolve each 17 g dose in 240 mLs (8 ounces) of beverage. Active multivitamin- iron-FA 18-400 mg-mcg tablet Take 2 tablets by mouth daily. Active ibuprofen 800 mg tabletIndicat ions:Pain Chest Take 1 tablet (800 mg total) by mouth 3 (three) times a day as needed for pain (pain. take with food.). 270 tablet 3 Active buPROPion XL (Wellbutrin XL) 300 mg 24 hr tablet Take 1 tablet (300 mg total) by mouth every morning. 90 tablet 3 Active levothyroxine 100 mcg tabletIndicat ions:Hypothyr oidism Take 1 tablet (100 mcg total) by mouth daily. 90 tablet 3 Active pravastatin (PravachoL) 80 mg tabletIndicat ions:Hypercho lesterolemia Take 1 tablet (80 mg total) by mouth at bedtime. 90 tablet 3 Active cetirizine (ZyrTEC) 10 mg tablet Take 10 mg by mouth at bedtime. Titrates to 40 mg at bedtime depending on skin condition Active triamcinolone (Kenalog) 0.1 % cream Apply 1 Application topically 2 (two) times a day as needed for irritation or rash. Apply to affected area. Active cefTRIAXone in dextrose, iso osm, (Rocephin) 2 gram/50 mL IVBPIndicatio ns:Bone and/or joint infection Infuse 50 mL (2 g total) into a venous catheter daily Indications: Bone and/or joint infection. Stop date: 02/27/2024 1950 mL 2024 Active sodium chloride 0.9 % injection Infuse 10 mL into a venous catheter as needed for line care. 10 mL before and after medications administration and as needed for manager pipeline. 10 mL 11 Active aspirin [address] tablet Take 1 tablet (81 mg total) by mouth 2 (two) times a day for 25 days. Stop date: 02/13/2024 to reduce risk for blood clots 2024 Active rifAMPin (Rifadin) 150 mg capsuleIndica tions:Bone and/or joint infection Take 2 capsules (300 mg total) by mouth 2 (two) times a day Indications: Bone and/or joint infection. Tentative stop date: 03/18/2024 236 capsule 01/19/20 24 2:24 PM HELP DESK ASSOCIATE 2024 Active oxyCODONE (Roxicodone) 10 mg IR tabletIndicat ions:Acute Pain Exception Take 0.5-1 tablets (5-10 mg total) by mouth every 4 (four) hours as needed for pain Indication: Acute Pain Exception. 24 tablet Active diazePAM (Valium) 5 mg tablet Take 1 tablet (5 mg total) by mouth 2 (two) times a day as needed for muscle spasms. 14 tablet 2023 Discontinued oxyCODONE (Roxicodone) 10 mg IR tabletIndicat ions:Acute Pain Exception Take 1 tablet (10 mg total) by mouth every 4 (four) hours as needed for severe pain or score 7-10 of 10 or moderate pain or score 4-6 of 10 Indication: Acute Pain Exception. Take 1 tab (10 mg) for pain. After 1 week, recommend reducing dose to 5 mg tabs. 25 tablet 024 2023 Discontinued cefTRIAXone in dextrose, iso osm, (Rocephin) 2 gram/50 mL IVBPIndicatio ns:Bone and/or joint infection Infuse 50 mL (2 g total) into a venous catheter daily Indications: Bone and/or joint infection. Stop date: 02/27/2024 1950 mL 2023 Discontinued sodium chloride 0.9 % injection Infuse 10 mL into a venous catheter as needed for line care. 10 mL before and after medications administration and as needed for manager pipeline. 10 mL 11 024 2023 Discontinued oxyCODONE (Roxicodone) 10 mg IR tabletIndicat ions:Acute Pain Exception Take 1 tablet (10 mg total) by mouth every 3 (three) hours as needed for pain. Wean down on medication as able. 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/02/2018 Hypothyroidism 12/15/2015 Depression Major 03/07/2015 Overview (06/29/2016): Depression Major NOS Anxiety Generalized Disorder 03/07/2015 Gastroesophageal Reflux Disease NOS 03/07/2015 Family History Coronary Artery Disease 5 Polyp Colon 09/25/2014 Resolved Problems Problem Noted Date Diagnosed Date Resolved Date Anxiety 03/25/2021 08/23/2022 Dilated Aortic Root 01/26/2018 08/24/19 23 Palpitations 10/08/2014 06/16/2023 Bursitis Trochanteric Bilateral 10/24/2006 08/23/2022 Hypothyroidism Acquired 03/11/200510/08 Encounters Date Type Department Care Team Description 02/07/2024 12:56 PM HELP DESK ASSOCIATE - 02/07/2024 11:59 PM HELP DESK ASSOCIATE Hospital Encounter Department of Radiology, [facility], in [place], [place] [address] [place] [address] Jolynn Cole PPrakashATravis, M.S. Pain Ankle Left Discharge Disposition: Home or Self Care 02/07/2024 11:00 AM HELP DESK ASSOCIATE Office Visit Department of Orthopedic Surgery in [address] [phone] Jolynn Cole P.APrakash-C., M.S. Fracture Tibial Plateau Closed Initial Left (Primary Dx); Arthroplasty Total Knee Replacement Status Post Right; Arthroplasty Total Knee Replacement Status Post Left 02/06/2024 Orders Only Department of Orthopedic Surgery in [address] [phone] Jolynn Cole P.A.-C., M.S. Pain Ankle Left (Primary Dx) 02/03/2024 Patient Outreach Section of Infectious Diseases in [place], [place] [address] [place] [phone] Marta Serrano M.S.N., R.N., CNRN OPAT 02/02/2024 Orders Only Section of Infectious Diseases in [place], [place] [address] [place] [phone] External, Ordering Provider, [place]ancy 01/27/2024 Patient Outreach Section of Infectious Diseases in [place], [place] [address] [place] [phone] Lisseth Fernandes R.N. OPAT 01/26/2024 Orders Only Section of Infectious Diseases in [place], [place] [address] [place] [phone] External, Ordering Provider, M.Aimee 01/25/2024 Orders Only Department of Orthopedic Surgery in [place] [phone] [place] [phone] Jolynn Cole P.A.-C., M.S. 01/24/2024 1:30 PM HELP DESK ASSOCIATE Virtual Visit Section of Infectious Diseases in [place], [place] [address] [place] [phone] Silvana Marrufo M.D. Johnson, Tanner M, Pharm.D., R.Ph. Chief Quality Officer Antibiotic Treatment 01/20/2024 Patient Outreach Section of Infectious Diseases in [place], [place] [address] [place] [phone] Liberty Gonzales OPAT 01/19/2024 Orders Only Department of Orthopedic Surgery in [address] [phone] Jolynn Cole P.A.-C., M.S. 01/18/2024 Clinical Communication [facility] [address] [place] [phone] Silvana Marrufo M.D. Post Hospital Follow-up 01/16/2024 10:54 AM HELP DESK ASSOCIATE Anesthesia Event [facility] [address] [place] [phone] Satish Garcia III, M.D. Stephenson, Anthony A, M.D. 01/16/2024 10:18 AM HELP DESK ASSOCIATE - 01/16/2024 1:58 PM HELP DESK ASSOCIATE Surgery [facility] OR [facility] [address] [place] [phone] Brock Milton M.D. LEFT TOTAL KNEE LYSIS OF ADHESIONS, POLYETHYLENE EXCHANGE 01/16/2024 7:29 AM HELP DESK ASSOCIATE - 01/19/2024 1:56 PM HELP DESK ASSOCIATE Hospital Encounter [facility], Ninth Floor [address] [place] [phone] Brock Milton M.D. Infection Total Knee Arthroplasty Initial Left (HCC) (Primary Dx); Aftercare Total Knee Arthroplasty; Decline Functional Status [R53.81] Discharge Disposition: Home or Self Care 01/16/2024 Ancillary Procedure Department of Orthopedic Surgery 01/16/2024 Clinical Communication Department of Orthopedic Surgery in [address] [phone] Brock Milton M.D. 01/13/2024 9:30 AM HELP DESK ASSOCIATE Office Visit Department of Orthopedic Surgery in [address] [phone] Brock Milton M.D. Chirpich, Erika P PPrakashAPrakash-Sharifa, M.S. Fracture Tibial Plateau Closed Initial Left (Primary Dx); Aftercare Total Knee Arthroplasty 01/13/2024 8:23 AM HELP DESK ASSOCIATE - 01/13/2024 11:59 PM HELP DESK ASSOCIATE Hospital Encounter Department of Radiology, [facility] in [address] [address] Jolynn Cole P.A.-[place]oacano., M.S. Aftercare Total Knee Arthroplasty Discharge Disposition: Home or Self Care 01/09/2024 Orders Only Department of Orthopedic Surgery in [address] [phone] Jolynn Cole P.A.-C., M.S. 12/06/2023 2:02 PM CDT - 12/06/2023 11:59 PM CDT Hospital Encounter Department of Laboratory Medicine in [address] [phone] Keiry Alamo P.A.-C. Fracture Tibia Bicondylar Nondisplaced Closed Subsequent With Malunion Left Discharge Disposition: Home or Self Care 12/06/2023 1:30 PM CDT Office Visit Department of Family Medicine, [facility], in [address] [phone] Keiry Alamo P.A.-C. Fracture Tibia Bicondylar Nondisplaced Closed Subsequent With Malunion Left (Primary Dx); Overweight Body Mass Index 25-29.9 Adult; Depression Major; Anxiety Generalized Disorder; PreDiabetes; Hypercholesterolemia; Hypothyroidism 12/05/2023 Orders Only Department of Orthopedic Surgery in [address] [phone] Jolynn Cole P.A.-C., M.S. Aftercare Total Knee Arthroplasty (Primary Dx) 11/29/2023 1:15 PM CDT Office Visit Department of Orthopedic Surgery in [address] [phone] Brock Milton M.D. Aftercare Total Knee Arthroplasty (Primary Dx) 11/29/2023 11:46 AM CDT - 11/29/2023 11:59 PM CDT Hospital Encounter Department of Radiology, [facility], in [address] [phone] Jolynn Cole P.A.-C., M.S. Aftercare Total Knee Arthroplasty Discharge Disposition: Home or Self Care 11/25/2023 11:45 AM CDT - 11/25/2023 11:59 PM CDT Hospital Encounter Department of Laboratory Medicine in [place], [place] [address] [place] [address] Lilli Chacon M.D. Hyperlipidemia Mixed; Screening Examination Diabetes Mellitus; Hypothyroidism; Iron Deficiency Anemia Screening Exam Discharge Disposition: Home or Self Care 11/23/2023 2:30 PM CDT Clinical Communication Virtual Review in [place], [place] [address] [place] [address] Pre-visit Intake 11/23/2023 Refill Department of Family Medicine, [facility], in [place], [place] [address] [phone] Treasure Baires M.D. Med Refill 11/23/2023 Clinical Communication Department of Family Medicine, [facility], in [place], [place] [address] [phone] Treasure Baires M.D. 11/22/2023 Refill Department of Family Medicine, [facility], in [place], [place] [address] [address] Lilli Chacon M.D. Med Refill from Last 3 Months Immunizations Name Administration Dates Next Due DTaP (Infanrix, Tripedia) 10/18/2008 H1N1 All Forms 02/14/2009 HZV (ZOSTAVAX) 12/18/2015,10/19/2012 Influenza, Injectable, Mdck, Quadrivalent 2020 Influenza, Quadrivalent, Adj uvanted, Preservative Free 12/30/2021,2019 Influenza, Seasonal, Injectable 11/10/2009 Influenza, Unspecified 12/15/2015,10/07/2014 PCV13 12/15/2015 PPSV23 12/25/2016 RZV (SHINGRIX) 01/24/2019,10/13/2018 SARS-COV-2 (COVID-19) - MODE RNA BIVALENT(Discontinued) 09/03/2022,10/28/2021 SARS-COV-2 (COVID-19) - MODERNA(Discontinued) 04/09/2020 TICK-BORNE ENCEPHALITIS (ADULT) 03/09/2022 Td Preservative Free (TENIVAC, DECAVAC) 01/27/20 influenza trivalent high dose (HD)(PF) ,01/26/2018,12/25/2016 influenza trivalent vaccine (6 months and older)(PF) 10/19/2012,10/26/2010 Family History Medical History Relation Name Comments [...] 87 Thyroid disease Mother Hannah Tuberculosis Mother Hnanah Colon cancer Mother's Sister Aga Diagnosed at [...] drink = 0.6 oz pur e alcohol) [facility] Utilities Answer Date Recorded In the past 12 months has [facility] [employer], oil, or water [employer] threatened to shut off services in your home? No 01/17/2024 Humiliation, Afraid, Rape, and Kick questionnair e Answer Date Recorded Within the last year, have y ou been afraid of your partner or ex-partner? No 01/17/2024 Within the last year, have y ou been humiliated or emotionally abused in other ways by your partner or ex-partner? No Within the last year, have y ou been kicked, hit, slapped, or otherwise physically hurt by your partner or ex-partner? No 01/17/2024 Within the last year, have y ou been raped or forced to have any kind of sexual activity by your partner or ex-partner? No 01/17/2024 Social Connection and Isolation Panel [NHANES] A [...] any clubs o r organizations such as caodaism groups, unions, fraternal or athletic groups, or [...] 10/28/2022 PHQ-2 Answer Date Recorded PHQ-2 Score 3 12/05/2023 [facility] of Occupat ional Health - Occupational Stress [...] to strenuous exercise (like a brisk walk)? Patient declined On average, how many minutes do you engage in exercise at this level? Patient declined 11/22/2023 Hunger Vital Sign Answer Date Recorded Within the past 12 months, y ou worried that your food would run out before you got the money to buy more. Never true 01/17/20 24 Within the past 12 months, t he food you bought just didn't last and you didn't have money to get more. Never true 01/17/2024 PRAPARE - Transportation Answer Date Re corded In the past 12 months, has l ack of transportation kept you from medical appointments or from getting medications? No 01/07 In the past 12 months, has l ack of transportation kept you from meetings, work, or from getting things needed for daily living? No 01/17/2024 Depression Answer Date Recor ded PHQ-9 Total Score (max 27) 7 12/04 Nutrition Answer Date Recorded On average, how many serving s of fruits and vegetables do you eat per day (serving size is equal to 1 cup or approximately the size of a tennis ball)? 3-5 11/22/2023 Dental Answer Date Recorded Dental: Regular Dentist Yes 01/09/20 Employment Answer Date Recorded Employment status Retired 11/22/2023 Housing Stability Answer Date Recorded What is your living situation today? I have a [facility] place to live 01/17/2024 Education Answer Date Recorded What is the highest level of school you have completed or the highest degree you have received? Doctorate 09/05/2018 Comments No Sex and Gender Information Value Date Recorded Sex Assigned at Female 12/19/2016 7:29 PM HELP DESK ASSOCIATE Legal Sex Female 7:58 AM HELP DESK ASSOCIATE Gender Identity Female 12/19/2016 7:29 PM HELP DESK ASSOCIATE Sexual Orientation Lesbian or [place]c[employer] 03/12/2020 12 :23 PM HELP DESK ASSOCIATE Last Filed Vital Signs Vital Sign Reading Time Taken Comments Blood Pressure 133/67 01/18/2024 4:00 AM HELP DESK ASSOCIATE Pulse 90 01/19/2024 12:41 PM HELP DESK ASSOCIATE Temperature 36.6 C (97.9 F) 01/19/2024 5:00 AM HELP DESK ASSOCIATE Respiratory Rate 22 01/19/2024 12:41 PM HELP DESK ASSOCIATE Oxygen Saturation 97% 01/19/2024 12:41 PM HELP DESK ASSOCIATE Inhaled Oxygen Concentration - - Weight 73.5 kg (162 lb 0.6 oz) 01/18/2024 10:15 PM HELP DESK ASSOCIATE Height 163 cm (5' 4.17) 01/16/2024 8:03 AM HELP DESK ASSOCIATE Body Mass Index 27.66 01/16/2024 8:03 AM HELP DESK ASSOCIATE Plan of Treatment Upcoming Encounters Date Type Department Care Team (Late st Contact Info) Description 03/01/2024 10:00 AM HELP DESK ASSOCIATE Comprehensive Visit Section of Infectious Diseases in [address] [phone] Silvana Marrufo M.D. [address] [place] [phone] 03/01/2024 10:40 AM HELP DESK ASSOCIATE Lab Department of Laboratory Medicine and Pathology, [facility], in [address] [phone] Jolynn Cole P.A.-C., M.S. [address] [place] [phone] 03/01/2024 11:15 AM HELP DESK ASSOCIATE Appointment Department of Radiology, [facility] in [address] [phone] Jolynn Cole P.A.-C., M.S. [address] [place] [phone] 03/01/2024 12:00 PM HELP DESK ASSOCIATE Office Visit Department of Orthopedic Surgery in [address] [phone] Jolynn Cole P.A.-C., M.S. [address] [place] [phone] 03/13/2024 3:20 PM HELP DESK ASSOCIATE Comprehensive Visit Department of Family Medicine, [facility], in [place], [place] [address] [place] [phone] Treasure Baires M.D. [address], [place] [address] 03/14/2024 1:30 PM HELP DESK ASSOCIATE Virtual Visit Section of Infectious Diseases in [place], [place] [address] [place] [address] Silvana Marrufo M.D. [address] [place] [address] Health Maintenance Due Date Last Done Comments CT Colonography 1950 Cologuard 1950 Depression Monitoring (PHQ-9 for quality tracking) 02/08/2024 Fall Risk Screen (Annual) 02/08/2024 Mammogram 02/10/2024 02/09/2023, 04/2023, 03/09/2022, Additional history exists Depression Monitoring (PHQ-9) 04/06/2024 12/05/2023 Thyroid Stimulating Hormone (TSH) test for thyroid function 11/24/2024 11/25/2023, 02/02/2023, 02/02/2023, Additional history exists Visit: Annual, age 65+ (or Medicare and <65) 12/05/2024 12/06/2023 Fasting Glucose for Diabetes Screening 01/16/2025 01/17/2024, 12/06/2023, 11/25/2023, Additional history exists DTaP,Tdap,and Td Vaccines (3 - Tdap) 01/27/2028 01/26/2018, 10/18/2008 Lipid (Cholesterol) Screening 11/24/2028 11/25/2023, 02/02/2023, 09/02/2022, Additional history exists Colonoscopy 11/25/2029 11/26/2019, 11/07, 10/03/2014, Additional history exists Colorectal Cancer Surveillance 11/25/2029 Pneumococcal vaccine (50+ years) Completed 12/25/2016, 12/15/2015 Zoster Vaccines Completed 01/24/2019, 07/2018, 12/18/2015, Additional history exists Hepatitis C Screening Completed 03/17/2022 COVID-19 Vaccine Completed 10/17/2023, , 11/20/2022, Additional history exists Influenza Vaccine Completed 12/03/2023, , 12/30/2021, Additional history exists IPV Vaccines Aged Out No longer eligi ble based on patient's age to complete this topic Medical Devices Implanted Type Area Golf Ball Trimmer Device Identifier Shelf Expiration Date Model / Serial / Lot Cmnt Bn Smp 40gm - [id number] Implanted:Qty : 4 on 09/12/2023 by Brock Milton M.D. at [facility] Bone Cement Left: Knee [place] 06/06/2025 6191-1-00 1 / / [id number] Cplng Ext Fx Crbnfb 5x8 - [id number] Implanted:Qty : 7 on 07/04/2023 by Jaxson Rodriguez M.D. at [facility] Hardware e.g. pins/screws/ rods [place] 4922-1-01 0 / / Hilario Ext Fx Crbnfb 75m354 - [id number] Implanted:Qty : 2 on 07/04/2023 by Jaxson Rodriguez M.D. at [facility] Hardware e.g. pins/screws/ rods [place] 4922-8-50 0 / / Hilario Ext Fx Crbnfb 35m604 - [id number] Implanted:Qty : 1 on 07/04/2023 by Jaxson Rodriguez M.D. at [facility] Hardware e.g. pins/screws/ rods [place] 4922-8-40 0 / / Pin Ext Fx Ss St Apx [id number] - [id number] Implanted:Qty : 1 on 07/04/2023 by Jaxson Rodriguez M.D. at [facility] Hardware e.g. pins/screws/ rods [place] 5020-8-25 0 / / Pin Ext Fx Ss St Apx 5x180 - [id number] Implanted:Qty : 3 on 07/04/2023 by Jaxson Rodriguez M.D. at [facility] Hardware e.g. pins/screws/ rods [place] 5020-7-18 0 / / Kn Fem Trt Lt Cmnt Sz-5 - [id number] Implanted:Qty : 1 on 09/12/2023 by Brock Milton M.D. at [facility] Knee Implant Left: Knee Hang 05/16/2028 5512-F-50 1 / / [id number] Pat Mko Asym 10x32 - [id number] Implanted:Qty : 1 on 09/12/2023 by Brock Milton M.D. at [facility] Knee Implant Left: Knee [place] 07/18/2027 5551-G-32 0-E / / [id number] Kn Stm Trt Cmnt 12x50 - [id number] Implanted:Qty : 1 on 09/12/2023 by Brock Milton M.D. at [facility] Knee Implant Left: Knee Hang 06/02/2028 5560-S-11 2 / / [id number] Tib Aug Trt Cn Sz-B - [id number] Implanted:Qty : 1 on 09/12/2023 by Brock Milton M.D. at [facility] Knee Implant Left: Knee [place] 05/25/2028 5549-A-12 0 / / [id number] Triathlon Revision Tibial Baseplate Implanted:Qty : 1 on 09/12/2023 by Brock Milton M.D. at [facility] Knee Implant Left: Knee Hang [id number] 10/18/2027 5612-B-40 0 / / [id number] Triathlon Fluted Stem Implanted:Qty : 1 on 09/12/2023 by Brock Milton M.D. at [facility] Knee Implant Left: Knee Hang [id number] 03/31/2024 5566-S-01 1 / / [id number] Triathlon Revision Insert X3 Implanted:Qty : 1 on 09/12/2023 by Brock Milton M.D. at [facility] Knee Implant Left: Knee Hang [id number] 08/23/2027 5612-X-41 1 / / [id number] Triathlon Revision Insert X3 9mm Implanted:Qty : 1 on 01/16/2024 by Brock Milton M.D. at [facility] Knee Implant Left: Knee Hang 08/04/2027 5612-X-40 9 / / [id number] Explanted Type Area Golf Ball Trimmer Device Identifier Shelf Expiration Date Model / Serial / Lot Pin Hlf Ext Fix Apx St [id number] - [id number] Implanted:Qty : 1 on 07/13/2023 by Brock Milton M.D. at [facility] Explanted:Qty : 1 on 09/12/2023 at [facility] Hardware e.g. pins/screws/ rods Left: Leg [place] 5020-6-200 / / Scrw Dcp St 2.7x26 - [id number] Implanted:Qty : 1 on 07/13/2023 by Brock Milton M.D. at [facility] Explanted:Qty : 1 on 09/12/2023 by Brock Milton M.D. at [facility] Hardware e.g. pins/screws/ rods Left: Leg Depuy Synthes 202.826 / / Scrw Dcp St 2.7x32 - [id number] Implanted:Qty : 1 on 07/13/2023 by Brock Milton M.D. at [facility] Explanted:Qty : 1 on 09/12/2023 by Brock Milton M.D. at [facility] Hardware e.g. pins/screws/ rods Left: Leg Depuy Synthes 202.832 / / Procedures Procedure Name Priority Date/Time Associated Diagnosis Comments CT ANKLE LEFT WITHOUT IV CONTRAST RAD - Routine (most inpatients and all outpatients) 02/07/2024 1:25 PM HELP DESK ASSOCIATE Pain Ankle Left WOUND CARE Routine 02/07/2024 11:00 AM HELP DESK ASSOCIATE Arthroplasty Total Knee Replacement Status Post Left CBC WITH DIFFERENTIAL, B Routine 02/02/2024 8:50 AM HELP DESK ASSOCIATE ALKALINE PHOSPHATASE, S/P Routine 02/02/2024 8:50 AM HELP DESK ASSOCIATE ALANINE AMINOTRANSFERASE (ALT), S/P Routine 02/02/2024 8:50 AM HELP DESK ASSOCIATE CREATININE WITH EGFR, S/P Routine 02/02/2024 8:50 AM HELP DESK ASSOCIATE ALKALINE PHOSPHATASE, S/P Routine 01/26/2024 10:24 AM HELP DESK ASSOCIATE ALANINE AMINOTRANSFERASE (ALT), S/P Routine 01/26/2024 10:24 AM HELP DESK ASSOCIATE CREATININE WITH EGFR, S/P Routine 01/26/2024 10:24 AM HELP DESK ASSOCIATE CBC WITH DIFFERENTIAL, B Routine 01/26/2024 10:24 AM HELP DESK ASSOCIATE ALKALINE PHOSPHATASE, S/P Routine 01/19/2024 12:54 PM HELP DESK ASSOCIATE Aftercare Total Knee Arthroplasty Infection Total Knee Arthroplasty Initial Left (HCC) PERFORM CENTRAL ELECTRO MECHANICAL ENGINEER Routine 01/19/2024 11:[address] PL[address] PERIPHERALLY INSERTED CENTRAL CATHETER (PICC) Routine 01/18/2024 8:30 PM HELP DESK ASSOCIATE HEPATIC FUNCTION PANEL, S Timed 01/18/2024 6:55 AM HELP DESK ASSOCIATE SEDIMENTATION RATE, B Timed 01/18/2024 6:55 AM HELP DESK ASSOCIATE C-REACTIVE PROTEIN (CRP), S/P Timed 01/18/2024 6:55 AM HELP DESK ASSOCIATE HEPATIC FUNCTION PANEL, S Routine 01/18/2024 5:56 AM HELP DESK ASSOCIATE SEDIMENTATION RATE, B Routine 01/18/2024 5:56 AM HELP DESK ASSOCIATE C-REACTIVE PROTEIN (CRP), S/P Routine 01/18/2024 5:56 AM HELP DESK ASSOCIATE ADULT OXYGEN THERAPY Routine 01/17/2024 8:01 PM HELP DESK ASSOCIATE ADULT OXYGEN THERAPY Routine 01/17/2024 8:01 PM HELP DESK ASSOCIATE ADULT OXYGEN THERAPY Routine 01/17/2024 8:01 PM HELP DESK ASSOCIATE ADULT OXYGEN THERAPY Routine 01/17/2024 11:32 AM HELP DESK ASSOCIATE ADULT OXYGEN THERAPY Routine 01/17/2024 11:32 AM HELP DESK ASSOCIATE ADULT OXYGEN THERAPY Routine 01/17/2024 11:32 AM HELP DESK ASSOCIATE ADULT OXYGEN THERAPY Routine 01/17/2024 11:32 AM HELP DESK ASSOCIATE ADULT OXYGEN THERAPY Routine 01/17/2024 8:02 AM HELP DESK ASSOCIATE CBC WITHOUT DIFFERENTIAL, B Routine 01/17/2024 5:09 AM HELP DESK ASSOCIATE BASIC METABOLIC PANEL, S/P Routine 01/17/2024 5:09 AM HELP DESK ASSOCIATE ADULT OXYGEN THERAPY Routine 01/16/2024 8:01 PM HELP DESK ASSOCIATE ADULT OXYGEN THERAPY Routine 01/16/2024 1:19 PM HELP DESK ASSOCIATE ADULT OXYGEN THERAPY Routine 01/16/2024 1:19 PM HELP DESK ASSOCIATE ADULT OXYGEN THERAPY Routine 01/16/2024 1:19 PM HELP DESK ASSOCIATE ADULT OXYGEN THERAPY Routine 01/16/2024 1:18 PM HELP DESK ASSOCIATE DX KNEE LEFT 2 VIEWS RAD - Routine (most inpatients and all outpatients) 01/16/2024 1:15 PM HELP DESK ASSOCIATE BACTERIA CULT, AEROBE/ANAEROBE+SUSC Routine 01/16/2024 11:40 AM HELP DESK ASSOCIATE BACTERIA CULT, AEROBE/ANAEROBE+SUSC Routine 01/16/2024 11:40 AM HELP DESK ASSOCIATE BACTERIA CULT, AEROBE/ANAEROBE+SUSC Routine 01/16/2024 11:40 AM HELP DESK ASSOCIATE MYCOBACTERIAL CULTURE, V Routine 01/16/2024 11:40 AM HELP DESK ASSOCIATE Aftercare Total Knee Arthroplasty MYCOBACTERIAL CULTURE, V Routine 01/16/2024 11:40 AM HELP DESK ASSOCIATE Aftercare Total Knee Arthroplasty MYCOBACTERIAL CULTURE, V Routine 01/16/2024 11:40 AM HELP DESK ASSOCIATE Aftercare Total Knee Arthroplasty FUNGAL SMEAR Routine 01/16/2024 11:40 AM HELP DESK ASSOCIATE Aftercare Total Knee Arthroplasty FUNGAL SMEAR Routine 01/16/2024 11:40 AM HELP DESK ASSOCIATE Aftercare Total Knee Arthroplasty FUNGAL SMEAR Routine 01/16/2024 11:40 AM HELP DESK ASSOCIATE Aftercare Total Knee Arthroplasty ACID FAST SMEAR FOR MYCOBACTERIUM Routine 01/16/2024 11:40 AM HELP DESK ASSOCIATE Aftercare Total Knee Arthroplasty ACID FAST SMEAR FOR MYCOBACTERIUM Routine 01/16/2024 11:40 AM HELP DESK ASSOCIATE Aftercare Total Knee Arthroplasty ACID FAST SMEAR FOR MYCOBACTERIUM Routine 01/16/2024 11:40 AM HELP DESK ASSOCIATE Aftercare Total Knee Arthroplasty GRAM STAIN Routine 01/16/2024 11:40 AM HELP DESK ASSOCIATE Aftercare Total Knee Arthroplasty GRAM STAIN Routine 01/16/2024 11:40 AM HELP DESK ASSOCIATE Aftercare Total Knee Arthroplasty GRAM STAIN Routine 01/16/2024 11:40 AM HELP DESK ASSOCIATE Aftercare Total Knee Arthroplasty FUNGAL CULTURE, ROUTINE Routine 01/16/2024 11:40 AM HELP DESK ASSOCIATE Aftercare Total Knee Arthroplasty FUNGAL CULTURE, ROUTINE Routine 01/16/2024 11:40 AM HELP DESK ASSOCIATE Aftercare Total Knee Arthroplasty FUNGAL CULTURE, ROUTINE Routine 01/16/2024 11:40 AM HELP DESK ASSOCIATE Aftercare Total Knee Arthroplasty IL INJ INF/BOLUS LUMB/SACRAL DX WO IMG Routine 01/16/2024 11:10 AM HELP DESK ASSOCIATE LDA ANE EPIDURAL CATHETER Routine 01/16/2024 11:10 AM HELP DESK ASSOCIATE LDA ANE ENDOTRACHEAL AIRWAY Routine 01/16/2024 11:08 AM HELP DESK ASSOCIATE ARTHROPLASTY REPLACEMENT TOTAL KNEE 01/16/2024 10:21 AM HELP DESK ASSOCIATE Aftercare Total Knee Arthroplasty Case Notes Booking Prizer @ 0736 Special Needs Supine, hip rest, 3 tissue cultures, size 4 tibial polys available for [employer] revision system (unknown current poly size), pulsavac. ORTHOPEDIC SURGERY IMAGE EXAM Routine 01/16/2024 12:00 AM HELP DESK ASSOCIATE DX KNEE LEFT STANDING 3 VIEWS RAD - Routine (most inpatients and all outpatients) 01/13/2024 8:52 AM HELP DESK ASSOCIATE Aftercare Total Knee Arthroplasty COMPREHENSIVE METABOLIC PANEL, S/P Routine 12/06/2023 2:22 PM CDT Fracture Tibia Bicondylar Nondisplaced Closed Subsequent With Malunion Left DX KNEE LEFT STANDING 3 VIEWS RAD - Routine (most inpatients and all outpatients) 11/29/2023 12:24 PM CDT Aftercare Total Knee Arthroplasty CBC WITH DIFFERENTIAL, B Routine 11/25/2023 11:55 AM CDT Iron Deficiency Anemia Screening Exam THYROID-STIMULATING HORMONE-SENSITIVE (S-TSH) Routine 11/25/2023 11:55 AM CDT Hypothyroidism HEMOGLOBIN A1C, B Routine 11/25/2023 11:55 AM CDT Screening Examination Diabetes Mellitus LIPID PANEL, S Routine 11/25/2023 11:55 AM CDT Hyperlipidemia Mixed HCV AB SCRN W/REFLEX TO HCV PCR, S Routine 03/17/2022 10:17 AM HELP DESK ASSOCIATE Screening Test Laboratory EXT MAMMOGRAM ENTER_EDIT RAD - Routine (most inpatients and all outpatients) 03/09/2022 1:56 PM HELP DESK ASSOCIATE COLONOSCOPY Routine 11/26/2019 3:23 PM CDT Screening Cancer Colon from Last 3 Months or Most Recently Relevant to Health Maintenance Results * CT Ankle Left without IV Contrast (02/07/2024 1:25 PM HELP DESK ASSOCIATE) Anatomical Region Laterality Modality Ankle, Lower Extremity, Musc uloskeletal RST LOS, Musculoskeletal ARZ LOS, Muskuloskeletal FLA LOS Left Computed Tomography, Compute d Tomography Impressions 02/07/2024 2:15 PM HELP DESK ASSOCIATE Marked demineralization throughout the ankle and visualized foot. 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 No significant joint space narrowing. Larger lucency within the anterior aspect of the talus (series 8, image 99 and series 6, image 103), could also be secondary to marked periarticular demineralization. There is nothing definite for osteochondral lesion, subchondral fracture, intra-articular loose bodies, or other potential pain generators. Complex regional pain syndrome could be considered given the marked demineralization if there are other supportive clinical features. If patient's pain persists, MRI could be helpful for further evaluation. Prominent posterior talar process. Scattered degenerative arthritis throughout the hindfoot and midfoot. No fractures. Degenerative or posttraumatic ossification along the dorsal aspect of the first TMT joint (series 8, image 60). Small ankle effusion, with fluid in the posterior recess. Arterial calcifications. Remainder negative. Narrative 02/07/2024 2:15 PM HELP DESK ASSOCIATE EXAM: CT ANKLE LEFT WITHOUT IV CONTRAST No 3D post-processing performed. COMPARISON: Left tibia/fibula radiographs 09/22/2023. Left foot radiographs 09/05/2018. Procedure Note Germán Perez M.D. - 02/07/2024 EXAM: CT ANKLE LEFT WITHOUT IV CONTRAST No 3D post-processing performed. COMPARISON: Left tibia/fibula radiographs 09/22/2023. Left footradiographs 09/05/2018. IMPRESSION: Marked demineralization throughout the ankle and visualized foot. Milddegenerative arthritis of the left tibiotalar joint. No significant jointspace narrowing. Larger lucency within the anterior aspect of the talus(series 8, image 99 and series 6, image 103), could also be secondary to marked periarticulardemineralization. There is nothing definite for osteochondral lesion,subchondral fracture, intra-articular loose bodies, or other potentialpain generators. Complex regional pain syndrome could be considered given the marked demineralization if thereare other supportive clinical features. If patient's pain persists, MRIcould be helpful for further evaluation. Prominent posterior talar process. Scattered degenerative arthritisthroughout the hindfoot and midfoot. No fractures. Degenerative orposttraumatic ossification along the dorsal aspect of the first TMT joint(series 8, image 60). Small ankle effusion, with fluid in the posterior recess. Arterial calcifications. Remaindernegative. Jolynn Cole P.A.-C. MPrakashS. IMG CT PROCEDURES Final Result * Wound Care Incision Anterior;Left Knee (02/07/2024 11:00 AM HELP DESK ASSOCIATE) Narrative [facility] - 02/07/2024 11:00 AM HELP DESK ASSOCIATE Jolynn Cole P.A.-C. M.S. 02/07/2024 2:27 PM Wound Care Incision Anterior;Left Knee Performed by: Jolynn Cole P.A.-C. MPrakashS. Authorized by: Jolynn Cole P.A.-C. MPrakashSPrakash PROCEDURE DETAILS Wound care performed: sutures removed Dressing Applied: no CONSENT Consent obtained: verbal Consent given by: patient PRE-PROCEDURE DETAILS Wound location: leg Leg location: left knee Wound age (days): >14 Sensation distal to injury: normal Movement distal to injury: normal Wound cleansed with: Alcohol. Amount of cleaning: standard SEDATION / ANESTHESIA Anesthesia method: none POST-PROCEDURE DETAILS Procedure completed successfully: yes Circulation distal to injury: pink and warm Movement distal to injury: normal Sensation distal to injury: normal Complications: no immediate complications Jolynn Cole P.A.-C., M.S. PROCEDURE/MINOR S URGICAL ORDERABLES Final Result [facility] NA * (ABNORMAL) CBC with Differential, Blood (02/02/2024 8:50 AM HELP DESK ASSOCIATE) Only the most recent of3 resultswithin the time period is included. EXT Leukocytes 5.01 4.50 - 11.00 K/uL [facility] EXT Hemoglobin 11.1(L) 12.0 - 16.0 gm/dL [facility] EXT Platelet Count 310 140 - 440 K/uL [facility] EXT Neutrophils 2.82 1.7 - 7.0 K/uL [facility] EXT Eosinophils 0.35 0.00 - 0.50 K/uL [facility] 02/02/2024 8:50 AM HELP DESK ASSOCIATE Narrative [facility] - 02/02/2024 2:34 PM HELP DESK ASSOCIATE Source result document attached to Order Number [id number] ([id number]) dated 02/02/2024. External results verified in Extract by Liberty Gonzales on 02/02/2024 at 02:31 PM. us Ordering Provider Lexi Hennessy LAB BLOOD ADD-ON Final Result Performing Organization Address [facility] de Phone Number [facility] [address] [phone] * ALT (Alanine Aminotransferase) (02/02/2024 8:50 AM HELP DESK ASSOCIATE) Only the most recent of2 resultswithin the time period is included. EXT ALT 13 4 - 35 U/L [facility] 02/02/2024 8:50 AM HELP DESK ASSOCIATE Narrative [facility] - 02/02/2024 2:34 PM HELP DESK ASSOCIATE Source result document attached to Order Number [id number] ([id number]) dated 02/02/2024. External results verified in Extract by Liberty Gonzales on 02/02/2024 at 02:31 PM. us Ordering Provider Lexi Hennessy LAB BLOOD ADD-ON Final Result Performing Organization Address [facility] Phone Number [facility] [address] [phone] * Alkaline Phosphatase (02/02/2024 8:50 AM HELP DESK ASSOCIATE) Only the most recent of3 resultswithin the time period is included. EXT Alkaline Phosphatase 144 40 - 150 U/L [facility] 02/02/2024 8:50 AM HELP DESK ASSOCIATE Narrative [facility] - 02/02/2024 2:34 PM HELP DESK ASSOCIATE Source result document attached to Order Number [id number] ([id number]) dated 02/02/2024. External results verified in Extract by Liberty Gonzales on 02/02/2024 at 02:31 PM. us Ordering Provider External M.D. LAB BLOOD ADD-ON Final Result Performing Organization Address City/[facility]/ZIP Co de Phone Number [facility] NA [facility] [address] [phone] * Creatinine with Estimated GFR (02/02/2024 8:50 AM HELP DESK ASSOCIATE) Only the most recent of2 resultswithin the time period is included. EXT Creatinine 0.7 0.5 - 1.5 mg/dL [facility] 02/02/2024 8:50 AM HELP DESK ASSOCIATE Narrative [facility] - 02/02/2024 2:34 PM HELP DESK ASSOCIATE External results verified in Extract by Liberty Gonzales on 02/02/2024 at 02:31 PM. us Ordering Provider External M.D. LAB BLOOD ADD-ON Final Result Performing Organization Address [facility] Co de Phone Number [facility] [address] [phone] * Perform central manager pipeline: Site care (01/19/2024 11:00 AM HELP DESK ASSOCIATE) Narrative Jarocho Sim R.NPrakash - 01/19/2024 11:00 AM HELP DESK ASSOCIATE Jarocho Sim R.N. 01/19/2024 11:02 AM Perform central manager pipeline: Site care Performed by: Jarocho Sim R.N. Authorized by: Brock Milton M.D. Brock Milton M.D. PROCEDURE/MINOR SURGICAL ORD ERABLES Final Result * Place peripherally inserted central catheter (PICC) (01/18/2024 8:30 PM HELP DESK ASSOCIATE) Narrative [facility] - 01/18/2024 8:30 PM HELP DESK ASSOCIATE Can Crockett R.N. 01/18/2024 10:[address] peripherally inserted central catheter (PICC) Performed by: Can Crockett R.N. Authorized by: Kashif Dailey M.D. Care team members present 1. Can Crockett R.N. 3. Katty Lovett PROCEDURE DETAILS Select line: PICC Line type: temporary (non-tunneled, non-implanted) Line size: 3.0 FR Catheter to vein ratio less than 45%: yes Adult or Jonathan/Peds: adult # of lumens: single lumen Type of catheter: power injectable and valved Laterality: right IV location: basilic Optimal site selected: yes Number of insertion attempts: 1 Blood return: yes Placement assistance: ultrasound guided Ultrasound image guidance used to localize target, identify at risk structures, and dynamically used to direct therapy to the target. Image(s) acquired and saved. Tip verification: ECG Catheter length (cm): 39 Initial exposed catheter (cm): 0 Mid upper arm circumference (cm): 32 All lumens flushed (Document volume in I/O): yes CONSENT Consent obtained: written (Risks, benefits and [...] was marked if required. A fire risk and smoke assessment were done as applicable. The procedural time-out to verify correct patient, correct side/site, and procedure was conducted prior to performing the procedure and confirmed in a procedural pause. PRE-PROCEDURE DETAILS Indications: Needed after discharge for ongoing care Site preparation: Chlorhexidine SEDATION / ANESTHESIA Anesthesia method: local infiltration Local infiltrate type: lidocaine POST-PROCEDURE DETAILS Procedure completed successfully: yes Complications: no apparent complications Comments Tissue adhesive has been applied to your catheter insertion site for securement, stabilization, and sealant. The purpose of the tissue adhesive is to reduce bleeding, reduce catheter movement/dislodgement, and protect the site from contamination. The tissue adhesive takes the place of a chlorhexidine gluconate (CHG) disk or dressing and also any other devices used for securement. Tissue adhesive will remain attached to the skin surface until natural cellular regeneration occurs (approx. 5-7 days). It is intended to be used with a transparent film dressing. Site care is recommended every 7 days. If tissue adhesive is not reapplied at the time of site care, please assess, clean, and dress the site per institutional guidelines. Residual tissue adhesive on the catheter tubing or skin during the dressing change does NOT need to be removed. If needed, any medical adhesive remover product may be used to release the adhesive from the skin. [email or web address]/[email or web address] Kashif Dailey M.D. PROCEDURE/MINOR SURGICAL ORDERABLES Final Result Performing Organization Address [facility] Co de Phone Number [facility] NA * (ABNORMAL) Hepatic Function Panel (01/18/2024 6:55 AM HELP DESK ASSOCIATE) Only the most recent of2 resultswithin the time period is included. Bilirubin, Total, S 0.4 0.0 - 1.2 mg/dL 01/18/2024 8:12 AM HELP DESK ASSOCIATE DTL Bilirubin, Direct, S <0.2 0.0 - 0.3 mg/dL 01/18/2024 8:12 AM HELP DESK ASSOCIATE DTL Aspartate Aminotransferase (AST), S 32 8 - 43 U/L 01/18/2024 8:12 AM HELP DESK ASSOCIATE DTL Alanine Aminotransferase (ALT), S 14 7 - 45 U/L 01/18/2024 8:12 AM HELP DESK ASSOCIATE DTL Alkaline Phosphatase, S 122(H) 35 - 104 U/L 01/18/2024 8:12 AM HELP DESK ASSOCIATE DTL Albumin, S 3.6 3.5 - 5.0 g/dL 01/18/2024 8:12 AM HELP DESK ASSOCIATE DTL Protein, Total, S 6.1(L) 6.3 - 7.9 g/dL 01/18/2024 8:12 AM HELP DESK ASSOCIATE DTL Blood (Blood, Venous) 01/18/2024 6:55 AM HELP DESK ASSOCIATE 01/18/2024 7:48 AM HELP DESK ASSOCIATE Margareth Minor M.D. LAB BLOOD ADD-ON Final Re sult Performing Organization Address City/[facility]/ZIP Co de Phone Number [facility] [address] [place] [address], [place] DTL [facility] [address] [place] [address] * (ABNORMAL) Sedimentation Rate (01/18/2024 6:55 AM HELP DESK ASSOCIATE) Only the most recent of2 resultswithin the time period is included. Sedimentation Rate, B 55(H) 3 - 28 mm/h 01/18/2024 8:26 AM HELP DESK ASSOCIATE DTL Blood (Blood, Venous) 01/18/2024 6:55 AM HELP DESK ASSOCIATE 01/18/2024 7:27 AM HELP DESK ASSOCIATE us Margareth Minor M.D. LAB BLOOD ADD-ON Final Re sult Performing Organization Address [facility] Co de Phone Number [facility] [address] [place], [place] [id number] [place] [address] [address] [place] [address] * (ABNORMAL) CRP (C-Reactive Protein) (01/18/2024 6:55 AM HELP DESK ASSOCIATE) Only the most recent of2 resultswithin the time period is included. Pathologist [facility] C-Reactive Protein (CRP), S 125.4(H) <5.0 mg/L 01/18/2024 8:12 AM HELP DESK ASSOCIATE DTL Blood (Blood, Venous) 01/18/2024 6:55 AM HELP DESK ASSOCIATE 01/18/2024 7:48 AM HELP DESK ASSOCIATE us Margareth Minor M.D. LAB BLOOD ADD-ON Final Re sult Performing Organization Address [facility] Co de Phone Number [facility] [address] [place], [place] [id number] [place] [address] * (ABNORMAL) CBC without Differential (01/17/2024 5:09 AM HELP DESK ASSOCIATE) Pathologist [facility] Hemoglobin 9.5(L) 11.6 - 15.0 g/dL 01/17/2024 6:26 AM HELP DESK ASSOCIATE DTL Hematocrit 30.6(L) 35.5 - 44.9 % 01/17/2024 6:26 AM HELP DESK ASSOCIATE DTL Erythrocytes 3.42(L) 3.92 - 5.13 x10(12)/L 01/17/2024 6:26 AM HELP DESK ASSOCIATE DTL MCV 89.5 78.2 - 97.9 fL 01/17/2024 6:26 AM HELP DESK ASSOCIATE DTL RBC Distrib Width 14.8 12.2 - 16.1 % 01/17/2024 6:26 AM HELP DESK ASSOCIATE DTL Platelet Count 250 157 - 371 x10(9)/L 01/17/2024 6:26 AM HELP DESK ASSOCIATE DTL Leukocytes 7.9 3.4 - 9.6 x10(9)/L 01/17/2024 6:26 AM HELP DESK ASSOCIATE DTL Blood (Blood, Venous) 01/17/2024 5:09 AM HELP DESK ASSOCIATE 01/17/2024 6:19 AM HELP DESK ASSOCIATE Jolynn Cole P.A.-C., M.S. LAB BLOOD ADD-ON Final Result [place] [address] [place] [address], [facility] [address] [place] [address] * (ABNORMAL) Basic Metabolic Panel (01/17/2024 5:09 AM HELP DESK ASSOCIATE) Pathologist [facility] Potassium, S 3.9 3.6 - 5.2 mmol/L 01/17/2024 6:50 AM HELP DESK ASSOCIATE DTL Sodium, S 140 135 - 145 mmol/L 01/17/2024 6:50 AM HELP DESK ASSOCIATE DTL Chloride, S 103 98 - 107 mmol/L 01/17/2024 6:50 AM HELP DESK ASSOCIATE DTL Bicarbonate, S 26 22 - 29 mmol/L 01/17/2024 6:50 AM HELP DESK ASSOCIATE DTL Anion Gap 11 7 - 15 01/17/2024 6:50 AM HELP DESK ASSOCIATE DTL BUN (Blood Urea Nitrogen), S 14 6 - 21 mg/dL 01/17/2024 6:50 AM HELP DESK ASSOCIATE DTL Creatinine 0.71 0.59 - 1.04 mg/dL 01/17/2024 6:50 AM HELP DESK ASSOCIATE DTL Estimated GFR (eGFR) 90 >=60 mL/min/BSA 01/17/2024 6:50 AM HELP DESK ASSOCIATE DTL Comment: Estimated GFR calculated using the 2020 CKD_EPI creatinine equation. Calcium, Total, S 8.4(L) 8.8 - 10.2 mg/dL 01/17/2024 6:50 AM HELP DESK ASSOCIATE DTL Glucose, S 145(H) 70 - 140 mg/dL 01/17/2024 6:50 AM HELP DESK ASSOCIATE DTL Blood (Blood, Venous) 01/17/2024 5:09 AM HELP DESK ASSOCIATE 01/17/2024 6:31 AM HELP DESK ASSOCIATE Jolynn Cole P.A.-C., M.S. LAB BLOOD ADD-ON Final Result [facility] [address] [place] [address], [facility] [address] [place] [address] * DX Knee Left 2 Views (01/16/2024 1:15 PM HELP DESK ASSOCIATE) Anatomical Region Laterality Modality Lower Extremity, Knee, Muscu loskeletal RST LOS, Musculoskeletal ARZ LOS, Muskuloskeletal FLA LOS Left Digit al Radiography Impressions 01/16/2024 1:41 PM HELP DESK ASSOCIATE Postsurgical changes of left TKA with patellar resurfacing and longstem tibial component. No evidence of hardware failure. Healing fracture of the proximal tibia and fibula. Otherwise negative for postoperative purposes. Narrative 01/16/2024 1:41 PM HELP DESK ASSOCIATE EXAM: DX KNEE LEFT 2 VIEWS Procedure Note Dora Michel M.D. - 01/16/2024 EXAM: DX KNEE LEFT 2 VIEWS IMPRESSION: Postsurgical changes of left TKA with patellar resurfacing and longstemtibial component. No evidence of hardware failure. Healing fracture of theproximal tibia and fibula. Otherwise negative for postoperativepurposes. Toney Anderson M.D. IMG DIAGNOSTIC IMAGING PRO CEDURES Final Result * (ABNORMAL) Bacteria Culture, Aerobe / Anaerobe + Susc (01/16/2024 11:40 AM HELP DESK ASSOCIATE) Only the most recent of3 resultswithin the time period is included. Bacteria Cult, Aerobe/Anaerobe+S usc STAPHYLOCOCCUS AUREUS Growth after 1 day (A) 01/20/2024 1:53 PM HELP DESK ASSOCIATE DTL Comment: mecA not detected Methicillin (oxacillin)-susceptible Staphylococcus aureus. Knee, Left 01/16/2024 11:4 0 AM HELP DESK ASSOCIATE 01/16/2024 3:19 PM HELP DESK ASSOCIATE Comment:Specimen Source Site : Tissue #2 Narrative [facility] - 01/20/2024 1:53 PM HELP DESK ASSOCIATE Bacterial Culture: Placed in Bactec aerobic and Bactec anaerobic bottles Organism Antibiotic Method Susceptibility Staphylococcus aureus Oxacillin SUSCEPTIBI LITY, VIVIAN (MCG/ML) 0.5 mcg/mL: Susceptible Comment: Use oxacillin interpretation to predict results for anti-staphylococcal beta-lactam antibiotics (except ceftaroline). Staphylococcus aureus Vancomycin SUSCEPTIBI LITY, VIVIAN (MCG/ML) 1 mcg/mL: Susceptible Staphylococcus aureus Clindamycin SUSCEPTIBI LITY, VIVIAN (MCG/ML) <=0.5 mcg/mL: Susceptible Staphylococcus aureus Levofloxacin SUSCEPTIBI LITY, VIVIAN (MCG/ML) <=0.5 mcg/mL: Susceptible Comment: Fluoroquinolones have a limited role in treatment of staphylococcal infections; consult Infectious Diseases if considering usage. Staphylococcus aureus Trimethoprim + Sulfamethoxazole SUSCEPTIBILITY, VIVIAN (MCG/ML) <=0.5/9.5 mcg/mL: Susceptible Staphylococcus aureus Minocycline SUSCEPTIBI LITY, VIVIAN (MCG/ML) <=1 mcg/mL: Susceptible Staphylococcus aureus Linezolid SUSCEPTIBI LITY, VIVIAN (MCG/ML) <=2 mcg/mL: Susceptible Comment: If linezolid tests susceptible, tedizolid susceptible results can be inferred. However, some organisms that test resistant to linezolid may be susceptible to tedizolid. Staphylococcus aureus Rifampin SUSCEPTIBI LITY, VIVIAN (MCG/ML) <=0.5 mcg/mL: Susceptible Comment:Rifampin collette uld not be used as monotherapy Staphylococcus aureus Doxycycline SUSCEPTIBI LITY, VIVIAN (MCG/ML) <=4 mcg/mL: Susceptible Staphylococcus aureus Daptomycin SUSCEPTIBI LITY, BP (MCG/ML) 0.25 mcg/mL: Susceptible us Brock Milton M.D. LAB MICROBIOLOGY - GENERAL O RDERABLES Final Result [facility] [address] [place] [address], [facility] [address] [place] [address] * Fungal Smear (01/16/2024 11:40 AM HELP DESK ASSOCIATE) Only the most recent of3 resultswithin the time period is included. Fungal Smear Negative. 01/16/2024 9:04 PM HELP DESK ASSOCIATE DTL Tissue (Knee, Left) 01/16/2024 11:40 AM HELP DESK ASSOCIATE Narrative [facility] - 01/16/2024 9:04 PM HELP DESK ASSOCIATE Bacterial Culture: Placed in Bactec aerobic and Bactec anaerobic bottles us Brock Milton M.D. LAB MICROBIOLOGY - GENERAL O RDERABLES Final Result Performing Organization Address City/[facility]/ZIP Co de Phone Number [facility] [address] [place] [address], [facility] [address] [place] [address] * Acid Fast Smear for Mycobacterium (01/16/2024 11:40 AM HELP DESK ASSOCIATE) Only the most recent of3 resultswithin the time period is included. Acid Fast Smear For Mycobacterium Negative. 01/16/2024 10:10 PM HELP DESK ASSOCIATE DTL Tissue (Knee, Left) 01/16/2024 11:40 AM HELP DESK ASSOCIATE [facility] - 01/16/2024 10:10 PM HELP DESK ASSOCIATE Bacterial Culture: Placed in Bactec aerobic and Bactec anaerobic bottles us Brock Milton M.D. LAB MICROBIOLOGY - GENERAL O RDERABLES Final Result [facility] [address] [place] [address], [facility] [address] [place] [address] * (ABNORMAL) Gram Stain (01/16/2024 11:40 AM HELP DESK ASSOCIATE) Only the most recent of3 resultswithin the time period is included. Gram Stain White blood cells, Many(A) 01/16/2024 6:50 PM HELP DESK ASSOCIATE DTL Gram Stain GRAM POSITIVE COCCI Rare (A) 01/16/2024 6:50 PM HELP DESK ASSOCIATE DTL Comment:Semi-Urgent Result. Semi-Urgent This is a semi-urgent result(CASTILLO) [facility] Tissue (Knee, Left) 01/16/2024 11:40 AM HELP DESK ASSOCIATE Narrative [facility] - 01/16/2024 6:50 PM HELP DESK ASSOCIATE Bacterial Culture: Placed in Bactec aerobic and Bactec anaerobic bottles us Brock Milton M.D. LAB MICROBIOLOGY - GENERAL O RDERABLES Final Result [facility] [address] [place] [address], [facility] [address] [place] [address] * LDA ANE EPIDURAL CATHETER, [place] INJ INF/BOLUS LUMB/SACRAL DX WO IMG (01/16/2024 11:10 AM HELP DESK ASSOCIATE) Narrative Satish Garcia III, M.D. - 01/16/2024 11:10 AM HELP DESK ASSOCIATE Dario Prajapati M.D. 01/16/2024 11:10 AM Regional Block Date/Time: 01/16/2024 11:10 AM Performed by: Dario Prajapati M.D. Authorized by: Satish Garcia III, M.D. Location: OR PROCEDURE DETAILS: Block Indication: post-op pain block Block indication comment: Post-Op pain block at request of surgeon Block Type - Neuraxial: lumbar epidural Positioning: sitting Approach: midline Level inserted: L4-5 Block technique: landmark technique Injection technique: catheter Epidural space identification technique: loss of resistance - fluid Loss of resistance depth: 6 Needle type: tuohy Gauge: 18G Length: 10 Catheter taped (cm at skin): 11 CSF: no Test dose: yes- negative test dose Pain with needle advancement or injection of local anesthetic: no Injected Medications: Injection(s), anesthetic agent(s) and/or steroid; See MAR UNIVERSAL PROTOCOL All relevant documentation and testing were reviewed and available. All required blood products, implants, devices and or special equipment were made available as applicable. Pre-procedure verification was conducted and the correct site was marked if required. A fire risk and smoke assessment were done as applicable. The procedural time-out to verify correct patient, correct side/site, and procedure was conducted prior to performing the procedure and confirmed in a procedural pause. PRE-PROCEDURE DETAILS: Appropriate hand hygiene, gown, cap, mask, protective eyewear, sterile gloves, skin preparation, sterile drape, and strict aseptic technique were utilized as applicable for the procedure.: yes Skin prep: chlorhexidine / alcohol SEDATION / ANESTHESIA Anesthesia method: local infiltration Local infiltrate type: lidocaine POST-PROCEDURE DETAILS: Procedure completed successfully: successful procedure Notable Events: none us Satish Garcia III, M.D. PROCEDURE/MINOR SURGICA L ORDERABLES Final Result * LDA ANE ENDOTRACHEAL AIRWAY (01/16/2024 11:08 AM HELP DESK ASSOCIATE) Narrative Satish Garcia III, M.D. - 01/16/2024 11:08 AM HELP DESK ASSOCIATE Dario Prajapati M.D. 01/16/2024 11:09 AM Airway Date/Time: 01/16/2024 11:08 AM Performed by: Dario Prajapati M.D. Authorized by: Satish Garcia III, M.D. Patient location during procedure: OR / Procedure Area PROCEDURE DETAILS: Mask difficulty assessment: easy mask Final airway type: direct laryngoscopy, intubation Laryngeal Manipulation: no Final airway difficulty of direct laryngoscopy (DL): 0-easy Final best view of glottic structures - Cormack/Lehane Score: grade 2A ETT location: oral Blade type: MAC 3 Tube size: 7 ETT distance at teeth/gum: 22 Oral tube type: standard ETT Cuffed: yes Airway confirmation: bilateral breath sounds, positive ETCO2 and bilateral chest rise PRE PROCEDURE DETAILS: Pre evaluation for airway management: procedure Urgency: elective Preop assessment of probable difficulty: no difficulty anticipated Preoxygenation: bag valve mask SEDATION / ANESTHESIA Anesthesia method: anesthesia POST PROCEDURE DETAILS: Procedure outcome: successful us Satish Garcia III, M.D. ANESTHESIA ORDERABLES F inal Result * Leg-Orthopedic Surgery Image Exam (01/16/2024 12:00 AM HELP DESK ASSOCIATE) Narrative [facility] - 01/16/2024 4:46 PM HELP DESK ASSOCIATE This order has been created and auto-finalized to support the import of images acquired without order. The clinical documentation to support these images can be found on the encounter that produced images. us Provider Not In System IMG NON RAD IMAGING PROCE DURES Final Result [facility] NA * DX Knee Left Standing 3 Views (01/13/2024 8:52 AM HELP DESK ASSOCIATE) Only the most recent of2 resultswithin the time period is included. 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 No radiographic evidence of loosening. Knee joint effusion and periarticular soft tissue swelling. Healing fracture proximal tibia with significant progression of fracture healing since 11/29/2023. Healing fracture involving head and neck of the fibula. Pin tracks in the tibia. Osteopenia. Narrative 01/13/2024 8:59 AM HELP DESK ASSOCIATE EXAM: DX KNEE LEFT STANDING 3 VIEWS Procedure Note Carley Mcmullen M.D. 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 Noradiographic evidence of loosening. Knee joint effusion and periarticularsoft tissue swelling. Healing fracture proximal tibia with significantprogression of fracture healing since 11/29/2023. Healing fracture involving head and neck of thefibula. Pin tracks in the tibia. Osteopenia. Jolynn Cole P.A.-C., M.S. IMG DIAGNOSTIC IM AGING PROCEDURES Final Result * (ABNORMAL) Comprehensive Metabolic Panel (12/06/2023 2:22 PM CDT) Potassium, P 4.2 3.6 - 5.2 mmol/L 12/06/2023 3:01 PM CDT OWAT Sodium, P 142 135 - 145 mmol/L 12/06/2023 3:01 PM CDT OWAT Chloride, P 104 98 - 107 mmol/L 12/06/2023 3:01 PM CDT OWAT Bicarbonate, P 27 22 - 29 mmol/L 12/06/2023 3:01 PM CDT OWAT Anion Gap, P 11 7 - 15 12/06/2023 3:01 PM CDT OWAT BUN (Blood Urea Nitrogen), P 14 6 - 21 mg/dL 12/06/2023 3:01 PM CDT OWAT Creatinine 0.84 0.59 - 1.04 mg/dL 12/06/2023 3:01 PM CDT OWAT Estimated GFR (eGFR) 73 >=60 mL/min/BS A 12/06/2023 3:01 PM CDT OWAT Comment: Estimated GFR calculated using the 2020 CKD_EPI creatinine equation. Calcium, Total, P 9.7 8.8 - 10.2 mg/dL 12/06/2023 3:01 PM CDT OWAT Glucose, P 104 70 - 140 mg/dL 12/06/2023 3:01 PM CDT OWAT Protein, Total, P 7.6 6.3 - 7.9 g/dL 12/06/2023 3:01 PM CDT OWAT Albumin, P 4.3 3.5 - 5.0 g/dL 12/06/2023 3:01 PM CDT OWAT Aspartate Aminotransferase (AST), P 20 8 - 43 U/L 12/06/2023 3:01 PM CDT OWAT Alkaline Phosphatase, P 108(H) 35 - 104 U/L 12/06/2023 3:01 PM CDT OWAT Alanine Aminotransferase (ALT), P 11 7 - 45 U/L 12/06/2023 3:01 PM CDT OWAT Bilirubin, Total, P 0.6 0.0 - 1.2 mg/dL 12/06/2023 3:01 PM CDT OWAT Blood (Blood, Venous) 12/06/2023 2:22 PM CDT 12/06/2023 2:36 PM CDT us Keiry Alamo P.A.-C. LAB BLOOD ADD-ON Final Res ult [facility] [address] [place] [address], [facility] OWAT [facility] [place] [address] [place] [address] * Lipid Panel (11/25/2023 11:55 AM CDT) Triglycerides 137 mg/dL 11/25/2023 1:26 PM CDT OWAT Comment: ----REFERENCE VALUE---- Normal: <150 mg/dL Borderline High: 150-199 mg/dL High: 200-499 mg/dL Very High: > or =500 mg/dL Cholesterol, Total 191 mg/dL 2023 1:26 PM CDT OWAT Comment: ----REFERENCE VALUE---- Desirable: < 200 mg/dL Borderline High: 200 - 239 mg/dL High: > or = 240 mg/dL Cholesterol, LDL, Calculated 89 mg/dL 11/25/2023 1:26 PM CDT OWAT Comment: ----REFERENCE VALUE---- Desirable: <100 mg/dL Above Desirable: 100-129 mg/dL Borderline High: 130-159 mg/dL High: 160-189 mg/dL Very High: >=190 mg/dL ----ADDITIONAL INFORMATION---- LDL cholesterol calculated using the Siu/NIH equation. Cholesterol, HDL 79 >=50 mg/dL 11/25/19 1:26 PM CDT OWAT Cholesterol, Non-HDL, Calculated 112 mg/dL 11/25/2023 1:26 PM CDT OWAT Comment: ----REFERENCE VALUE---- Desirable: <130 mg/dL Above Desirable: 130-159 mg/dL Borderline High: 160-189 mg/dL High: 190-219 mg/dL Very High: > or =220 mg/dL Fasting (8 HR or more) Yes 11/25/2023 1:05 PM CDT OWAT Blood (Blood, Venous) 11/25/2023 11:55 AM CDT 11/25/2023 12:47 PM CDT Lilli Chacon M.D. LAB BLOOD ADD-ON Final Res ult Performing Organization Address City/[facility]/ZIP Co de Phone Number [facility] [address] [place] [address], [facility] OWAT [facility] [place] [address] [place] [address] * S-TSH (Thyroid-Stimulating Hormone - Sensitive) (11/25/2023 11:55 AM CDT) TSH, Sensitive 4.0 0.3 - 4.2 mIU/L 11/25/2023 1:37 PM CDT OW Blood (Blood, Venous) 11/25/2023 11:55 AM CDT 11/25/2023 12:47 PM CDT Keiry Corral.A.-C. LAB BLOOD ADD-ON Final Res ult Performing Organization Address [facility] Co de Phone Number [facility] [address] [place] [address], [place] OWAT [facility] [address] [place] [address] * (ABNORMAL) Hemoglobin A1c (11/25/2023 11:55 AM CDT) Hemoglobin A1c, B 5.7(H) 4.2 - 5.6 % 11/25/2023 1:48 PM CDT OW Comment: Hemoglobin A1c values of 5.7-6.4 percent indicate an increased risk for developing diabetes mellitus. In diabetic patients, HbA1c goals should be discussed with healthcare provider. Blood (Blood, Venous) 11/25/2023 11:55 AM CDT 11/25/2023 12:48 PM CDT Keiry Alamo P.A.-C. LAB BLOOD ADD-ON Final Res ult Performing Organization Address City/[facility]/ZIP Co de Phone Number [facility] [address] [place] [address], [facility] [place] [address] [place] [address] * HCV Ab Scrn w/Reflex to HCV PCR, Serum (03/17/2022 10:17 AM HELP DESK ASSOCIATE) HCV Ab Screen, S Negative Negative 03/18/2022 8:10 AM HELP DESK ASSOCIATE [facility] Comment:Xrlmet-[id number]-qcevrb rat io is <1.00. Blood (Blood, Venous) 03/17/2022 10:17 AM HELP DESK ASSOCIATE 03/18/2022 7:06 AM HELP DESK ASSOCIATE Lilli Chacon M.D. LAB MICROBIOLOGY - BLOOD O RDERABLES Final Result [facility] [address] [place] [address] [facility] [address] [place] [address] * EXT Mammogram (03/09/2022 1:56 PM HELP DESK ASSOCIATE) EXT Mammogram Normal - See Scanned Report for Details Normal - See Scanned Report for Details, HIMS - Report Received and Scanned Comment:See care everywhere for results Anatomical Region Laterality Modality Breast, Breast Imaging ARZ L OS, Breast Imaging FLA LOS, Breast Imaging RST LOS N/A Mammography Impressions 03/09/2022 1:56 PM HELP DESK ASSOCIATE Exam End: 03/09/22 13:56 Last Resulted: 03/09/22 14:04 Received From: [employer] [facility] Historical Provider IMG BI PROCEDURES Final Resu lt from Last 3 Months or Most Recently Relevant to Health Maintenance [place] [id number] MEDICARE Advance Directives For more information, please contact: [phone] * Full Code (Latest Code Status on File) Date Activated Date Inactivated Comments 01/16/2024 3:17 PM 01/19/2024 4:06 PM Question Answer Comments Full Code: Discussed * Full Code Date Activated Date Inactivated Comments 09/12/2023 4:20 PM 09/15/2023 1:13 PM Question Answer Comments Full Code: Not Discussed Due to: Patient not available * Full Code Date Activated Date Inactivated Comments 07/03/2023 11:47 PM 07/15/2023 2:39 PM Question Answer Comments Full Code: Discussed Care Teams Professor Of Spanish Relationship Specialty Start Date End Date Treasure [place] M.D. [address] [place] [phone] PCP - General Family Medicine 09/08/23
--- OUTSIDE RECORDS SUMMARY | 2024-02-09 07:07 | XMS_ITS | Continuity of Care Document ---
Author Name [facility]IN User [email or web address] Address Unknown Organization Unknown Address Unknown Procedures FILTER APPLIED:Only known Procedures with Onset Date within the last 5 years Procedure Date Procedure Provider Additional Inform ation Status ECHO GUIDE FOR BIOPSY (37705) Completed INCISION OF HIP TENDONS (69357) Completed Encounters FILTER APPLIED:Only known Encounters with Admission Date within the last 5 years Encounter Location Admission Discharge Billing Code Car Lot Attendant [place] [facility]
--- OUTSIDE RECORDS SUMMARY | 2024-02-09 07:08 | XMS_ITS | Encounter Summary ---
Author Organization [facility] Address [address] [place] [address] Care Team Providers Care Senior Telecommunications Engineer Name Role Phone Treasure Baires M.D. Primary Care Provider [phone] Reason for Referral * Outpatient (Routine) - Authorized Specialty Diagnoses / Procedures Referred By Cortes mak Referred To Contact Pharmacy Diagnoses Assisted Antibiotic Treatment Silvana Marrufo M.D. [address] [place] [phone] Phone: tel: fax: [facility] Referral ID Status Reason Start Date Expiration Date V isits Requested Visits Authorized [id number] Authorized 01/24/2024 07/25/2025 1 1 RTMENT HEAD Reason for Visit * Outpatient (Routine) - Closed Specialty Diagnoses / Procedures Referred By Cortes mak Referred To Contact Pharmacy Diagnoses Assisted Antibiotic Treatment Silvana Marrufo M.D. [address] [place] [phone] Phone: tel: fax: [facility] Referral ID Status Reason Start Date Expiration Date Visits Re quested Visits Authorized [id number] Closed 01/23/2024 07/24/2025 1 1 Encounter Details Date Type Department Care Team (Late st Contact Info) Description 01/24/2024 1:30 PM DEPARTMENT HEAD Virtual Visit Section of Infectious Diseases in [place], [place] [address] [place] [phone] Silvana Marrufo M.D. [address] [place] [address] Kaden Moreland, Pharm.D., R.Ph. [address] [place] [address] Assisted Antibiotic Treatment Social History Tobacco Use Types Packs/Day Years Used Date Smoking Tobacco: Former Cigarettes 2002 Smokeless Tobacco: Never Alcohol Use Standard Drinks/Week Comments Yes 2 (1 standard drink = 0.6 oz pur e alcohol) [facility] Utilities Answer Date Recorded In the past 12 months has [employer], gas, oil, or water [employer] threatened to shut off services in your [...] week 09/13/2021 How often do you attend [facility] or sabianist services? 1 to 4 times per year [...] Answer Date Recorded PHQ-2 Score 3 12/05/2023 [facility] - Occupational [...] Date Recorded Dental: Regular Dentist Yes 01/09/20 21 Employment Answer Date Recorded Employment status Retired 11/22/2023 Housing Stability Answer Date Recorded What is your living situation today? I have a [facility] place to live 01/17/2024 Education Answer Date Recorded What is the highest level of school you have completed or the highest degree you have received? Doctorate 09/05/2018 Comments No Sex and Gender Information Value Date Recorded Sex Assigned at Female 12/19/2016 7:29 PM DEPARTMENT HEAD Legal Sex Female 7:58 AM DEPARTMENT HEAD Gender Identity Female 12/19/2016 7:29 PM DEPARTMENT HEAD Sexual Orientation Lesbian or Turcios 03/12/2020 12 :23 PM DEPARTMENT HEAD documented as of this encounter Consult Notes * Kaden Moreland, Pharm.D., R.Ph. - 01/24/2024 1:30 PM CST Medication Management Services ([facility]) Infectious Diseases Pharmacist Phone Consult The patient was not seen in person or examined, and the findings are based on phone discussion. CHAUNCEY Douglas is a 73 y.o. female, who is contacted via phone by the [facility] Pharmacist to the patient in patient's home in [place] for targeted medication review. As the provider for this telehealth service, I attest that I introduced myself to the patient/patient sales representative metals, provided my credentials, disclosed my location, and determined that, based on a review of the patient's chartand/or a discussion with members of the patient's treatment team, a telehealth visit is an appropriate and effective means of providing this service. It was also mutually agreed that this visit is appropriate for telehealth. She was referred by Silvana Marrufo M.D. per departmental standard of care. Patient was at the visit unaccompanied. The patient does not appear cognitively impaired at this visit. The purpose of the visit is: Rifampin drug interaction assessment. HISTORY OF PRESENT ILLNESS Infection Diagnosis: musculoskeletal infection Pathogen(s) being treated: methicillin sensitive Staph aureus - MSSA Antimicrobial Regimen Antimicrobials: ceftriaxone and rifampin Projected End Date: ceftriaxone through 02/27/2024 with transition to PO; rifampin through 03/18/2024 OPAT Lab parameters: CBC w/ Diff, ALT, Creatinine with eGFR, and ALK Phos Lab Monitoring Frequency: weekly MEDICATION RECONCILIATION Medication reconciliation was accomplished by review of all medications, prescription and non-prescription including vitamins and supplements from memory, discharge medication list 01/19/2024, and electronic health record (EHR) medication list. These were reviewed and reconciled with the patient. MEDICATION ADHERENCE The patient takes their antimicrobial regimen in the following manner: ceftriaxone daily in evening, rifampin BID on empty stomach. The patient utilizes the following medication reminder tools: strict routine. The patient reports 0 missed doses since hospital discharge last week. The following portions of the patient's history were reviewed and updated as appropriate: allergies, current medications, family history, medical history, social history, surgical history and problemlist. OBJECTIVE Lab Results Component Value Date NA 140 01/17/2024 CL 103 01/17/2024 CREATININE 0.71 01/17/2024 EGFR 90 01/17/2024 BUN 14 01/17/2024 ANIONGAP 11 01/17/2024 GLUCOSE 145 (H) 01/17/2024 CALCIUM 8.4 (L) 01/17/2024 Lab Results Component Value Date ALT 14 01/18/2024 AST 32 01/18/2024 ALKPHOS 155 (H) 01/19/2024 BILITOT 0.4 01/18/2024 ASSESSMENT / PLAN Pharmacotherapy was reviewed today with a patient-centered approach for indication, effectiveness, safety and convenience. 1. Medication Reconciliation Based on review and discussion, the outpatient medication list has been updated to reflect the patients currently reported medications. Counseled patient to let the OPAT team know if any other providers start a new a medication and talk with us before initiating any medication, prescription or over the counter. 2. Medication Adherence No concerns. Provided education and reinforcement regarding the importance of adherence in management of infection. I educated the patient on the importance of adherence in regards to managing the infection. I emphasized how adherence to the prescribed regimen will optimize successful treatment of the infection. The patient appears motivated to address the infection. We discussed ways in which to maximize ongoing medication adherence. All questions were answered. 3. Additional drug therapy recommendations/interventions Rifampin: Counseled on potential adverse effects, monitoring requirements, drug interactions, and proper administration of Rifampin. Recommend administration of rifampin on an empty stomach or at least 2 hours after meal (to optimize absorption). If rifampin poses GI upset on an empty stomach, thenI advised it would be reasonable to take it with food for tolerability. The absorption would be slightly reduced, but it would be reasonable to administer with food for tolerability and to ensure adherence. Discussed the orange discoloration of body fluids being a normal side effect of the medication and not a marker for toxicity. 4. Antimicrobial Drug-Drug Interactions A. Acetaminophen: Recommend monitoring closely for analgesic effect from acetaminophen (with consideration for using up to maximum dose of acetaminophen 1000mg 4 times daily as appropriate) and also monitoring closely for hepatotoxicity Rifampin can accelerate metabolism of acetaminophen and lower exposure via induction of CY. Additionally, case reports of acute liver toxicity have been described while on the combination of rifampin and acetaminophen, warranting close monitoring. ALT monitoring weekly while on IV antibiotics. B. Bupropion: Rifampin may decrease the serum concentration of BuPROPion. The mechanism of this interaction is due to induction of CYP2B6, an enzyme responsible for bupropion metabolism. Monitor for decreased bupropion efficacy if combined with moderate CYP2B6 inducers. Bupropion dose increases maybe required, but the maximum recommended dose of bupropion should not be exceeded (450mg daily). Noacute issues noted/reported today. C. Levothyroxine: RifAMPin may decrease the serum concentration of Thyroid Products. The manner in which rifampin alters thyroid hormone concentrations is uncertain, but evidence suggests that increased levothyroxine metabolism is at least partially responsible. The rifampin and levothyroxine prescribing labels report that rifampin has been demonstrated to accelerate the metabolism of levothyroxine and recommends dose adjustments as necessary. The [place] [employer] Clinical Endocrinologists and [place] Thyroid Association recommend monitoring TSH and assessing for dose adjustments every 4 to 8 weeks following initiation and discontinuation of drugs that may influence the absorption or metabolism of levothyroxine, such as rifampin. I will fax this note to her PCP for awareness. D. Oxycodone: Rifampin may decrease the serum concentration of OxyCODONE. The mechanism of this interaction is induction of CY, an enzyme partially responsible for the majority of oxycodone metabolism. Monitor patients more frequently for decreased oxycodone effects or withdrawal when oxycodoneis coadministered with a CY inducer and consider an oxycodone dose increase until stable drug effects are achieved. If a CY inducer is discontinued, monitor for respiratory depression and consider an oxycodone dose reduction until stable drug effects are achieved. Withdrawal effects only likely to occur with chronic/long-term therapy. No acute issues noted/reported today. E. Pravastatin: RifAMPin may decrease the serum concentration of Pravastatin. The mechanism of thisinteraction has not been fully investigated, but rifampin- mediated induction of UGQH4F5/1B3, transporters responsible for pravastatin hepatic uptake, may contribute. May consider monitoring for decreased pravastatin efficacy (lipid panel) when combined with rifampin. Patient and/or caregiver(s) expressed understanding of, and agreement with plan of care and was provided a verbal summary of these recommendations. Plan of care was communicated to the primary care provider. Total time spent was 30 minutes, with more than 50% of the time spent on counseling, coordination of care and patient education. Visit start time: 1:31 PM. Visit end time: 1:40 PM. Follow-up with pharmacist at end of rifampin completion for additional DDI review. RTMENT HEAD documented in this encounter Plan of Treatment Upcoming Encounters Date Type Department Care Team (Late st Contact Info) Description 03/01/2024 10:00 AM DEPARTMENT HEAD Comprehensive Visit Section of Infectious Diseases in [address] [phone] Silvana Marrufo M.D. [address] [place] [phone] 03/01/2024 10:40 AM DEPARTMENT HEAD Lab Department of Laboratory Medicine and Pathology, [facility], in [address] [phone] Jolynn Cole P.A.-C., M.S. [address] [place] [phone] 03/01/2024 11:15 AM DEPARTMENT HEAD Appointment Department of Radiology, [facility], in [place], [place] [address] [place] [phone] Jolynn Cole P.A.-C., M.S. [address] [place] [phone] 03/01/2024 12:00 PM DEPARTMENT HEAD Office Visit Department of Orthopedic Surgery in [place], [place] [address] [place] [phone] Jolynn Cole P.A.-C., M.S. [address] [place] [phone] 03/13/2024 3:20 PM DEPARTMENT HEAD Comprehensive Visit Department of Family Medicine, [facility], in [place], [place] [address] [phone] Treasure Baires M.D. [address] [phone] 03/14/2024 1:30 PM DEPARTMENT HEAD Virtual Visit Section of Infectious Diseases in [place], [place] [address] [place] [phone] Silvana Marrufo M.D. [address] [place] [phone] Scheduled Referrals Name Type Priority Associated Diagnoses Orde r Schedule Pharmacy - General phone consult (clinic) Outpatient Referral Routine Assisted Antibiotic Treatment Expected: 03/20/2024, Expires: 04/23/2025 documented as of this encounter Visit Diagnoses Diagnosis Veterinary Physiologist Antibiotic Treatment documented in this encounter Additional Health Concerns Assessment Noted Time PHQ-9 Depression Total Score: 7 12/05/19 24 11:33 PM CDT documented as of this encounter Care Teams Senior Telecommunications Engineer Relationship Specialty Start Date End Date Treasure Baires M.D. [address] [place] [phone] PCP - General Family Medicine 09/08/23 documented as of this encounter
--- OUTSIDE RECORDS SUMMARY | 2024-02-09 07:08 | XMS_ITS | Encounter Summary ---
Author Organization [facility] Address [address] [place] [address] Care Team Providers Care Senior Economist Name Role Phone Treasure Baires M.D. Primary Care Provider [phone]- [phone] Reason for Referral * MRI/CAT/PET Scan (Routine) - Closed Specialty Diagnoses / Procedures Referred By Ritaac t Referred To Contact Radiology Diagnoses Pain Ankle Left Procedures CT Ankle Left without IV Contrast Jolynn Cole P.A.-C., M.S. [address] [place] [phone] Phone: tel: fax: [facility] Referral ID Status Reason Start Date Expiration Date Visits Re quested Visits Authorized [id number] Closed 02/06/2024 02/05/2025 1 1 EXTINGUISHER INSPECTOR Reason for Visit * MRI/CAT/PET Scan (Routine) - Closed Specialty Diagnoses / Procedures Referred By Contac t Referred To Contact Radiology Diagnoses Pain Ankle Left Procedures CT Ankle Left without IV Contrast Jolynn Cole P.A.-C., M.S. [address] [place] [phone] Phone: tel: fax: [facility] Referral ID Status Reason Start Date Expiration Date Visits Re quested Visits Authorized [id number] Closed 02/06/2024 02/05/2025 1 1 Encounter Details Date Type Department Care Team (Latest Contact Info) Description 02/07/2024 12:56 PM FIRE EXTINGUISHER INSPECTOR - 02/07/2024 11:59 PM FIRE EXTINGUISHER INSPECTOR Hospital Encounter Department of Radiology, [facility] in [place], [place] [address] [place] [phone] Jolynn Cole P.A.-C., M.S. [address] [place] [phone] Pain Ankle Left Discharge Disposition: Home or Self Care Social History Tobacco Use Types Packs/Day Years Used Date Smoking Tobacco: Former Cigarettes 2002 Smokeless Tobacco: Never Alcohol Use Standard Drinks/Week Comments Yes 2 (1 standard drink = 0.6 oz pur e alcohol) [facility] Utilities Answer Date Recorded In the [...] often do you attend chur ch or restorationist services? 1 to 4 times per year 09/13/2021 Do you belong to any clubs o r organizations such as jain groups, unions, fraternal or athletic groups, or [...] Answer Date Recorded PHQ-2 Score 3 12/05/2023 [facility] - Occupational Stress [...] your living situation today? I have a [facility] place to live 01/17/2024 Education Answer Date Recorded What is the highest level of school you have completed or the highest degree you have received? Doctorate 09/05/2018 Comments No Sex and Gender Information Value Date Recorded Sex Assigned at Female 12/19/2016 7:29 PM FIRE EXTINGUISHER INSPECTOR Legal Sex Female 7:58 AM FIRE EXTINGUISHER INSPECTOR Gender Identity Female 12/19/2016 7:29 PM FIRE EXTINGUISHER INSPECTOR Sexual Orientation Lesbian or Turcios 03/12/2020 12 :23 PM FIRE EXTINGUISHER INSPECTOR documented as of this encounter Medications at Time of Discharge oxyCODONE (Roxicodone) 10 mg IR tabletIndicatio ns:Acute Pain Exception Take 0.5-1 tablets (5-10 mg total) by mouth every 4 (four) hours as needed for pain Indication: Acute Pain Exception. 24 tablet 01/25/2024 acetaminophen (TYLENOL) 500 mg tablet Take 2 tablets (1,000 mg total) by mouth every 6 (six) hours as needed for pain. 07/15/[address] tablet Take 1 tablet (81 mg total) by mouth 2 (two) times a day for 25 days. Stop date: 02/13/2024 to reduce risk for blood clots 01/19/2024 02/12/19 25 buPROPion XL (Wellbutrin XL) 300 mg 24 hr tablet Take 1 tablet (300 mg total) by mouth every morning. 90 tablet 3 12/06/2023 calcium citrate-vitamin D3 (CITRACAL+D) 315 mg-5 mcg (200 Unit) per tablet Take 2 tablets by mouth daily with breakfast. 07/15/2023 cefTRIAXone in dextrose, iso osm, (Rocephin) 2 gram/50 mL IVBPIndications :Bone and/or joint infection Infuse 50 mL (2 g total) into a venous catheter daily Indications: Bone and/or joint infection. Stop date: 02/27/2024 1950 mL 01/19/2024 02/26/19 25 cetirizine (ZyrTEC) 10 mg tablet Take 10 mg by mouth at bedtime. Titrates to 40 mg at bedtime depending on skin condition EPINEPHrine (EpiPen) 0.3 mg/0.3 mL injection syringeIndicati ons:Allergy Personal History Inject 0.3 mL (0.3 mg total) intramuscularly as needed for anaphylaxis. Inject into the thigh. 1 each 1 09/18/2021 ibuprofen 800 mg tabletIndicatio ns:Pain Chest Take 1 tablet (800 mg total) by mouth 3 (three) times a day as needed for pain (pain. take with food.). 270 tablet 3 11/24/2023 levothyroxine 100 mcg tabletIndicatio ns:Hypothyroidi sm Take 1 tablet (100 mcg total) by mouth daily. 90 tablet 3 12/06/2023 multivitamin-ir on-FA 18-400 mg-mcg tablet Take 2 tablets by mouth daily. polyethylene glycol (MIRALAX) 17 gram powder packet Take 1 packet by mouth daily as needed for constipation. Dissolve each 17 g dose in 240 mLs (8 ounces) of beverage. 07/15/2023 pravastatin (PravachoL) 80 mg tabletIndicatio ns:Hypercholest erolemia Take 1 tablet (80 mg total) by mouth at bedtime. 90 tablet 3 12/06/2023 rifAMPin (Rifadin) 150 mg capsuleIndicati ons:Bone and/or joint infection Take 2 capsules (300 mg total) by mouth 2 (two) times a day Indications: Bone and/or joint infection. Tentative stop date: 03/18/2024 236 capsule 01/19/2024 2:24 PM FIRE EXTINGUISHER INSPECTOR 01/19/2024 03/18/19 25 sennosides-docu sate sodium (SENOKOT-S) 8.6-50 mg per tablet Take 1 tablet by mouth at bedtime as needed for constipation. 07/15/2023 sodium chloride 0.9 % injection Infuse 10 mL into a venous catheter as needed for line care. 10 mL before and after medications administration and as needed for barrel line operator. 10 mL 11 01/19/2024 triamcinolone (Kenalog) 0.1 % cream Apply 1 Application topically 2 (two) times a day as needed for irritation or rash. Apply to affected area. documented as of this encounter Plan of Treatment Upcoming Encounters Date Type Department Care Team (Late st Contact Info) Description 03/01/2024 10:00 AM FIRE EXTINGUISHER INSPECTOR Comprehensive Visit Section of Infectious Diseases in [address] [phone] Silvana Marrufo M.D. [address] [place] [phone] 03/01/2024 10:40 AM FIRE EXTINGUISHER INSPECTOR Lab Department of Laboratory Medicine and Pathology, [facility] in [address] [phone] Jolynn Cole P.A.-C., M.S. [address] [place] [phone] 03/01/2024 11:15 AM FIRE EXTINGUISHER INSPECTOR Appointment Department of Radiology, [facility] in [address] [phone] Jolynn Cole P.A.-C., M.S. [address] [place] [phone] 03/01/2024 12:00 PM FIRE EXTINGUISHER INSPECTOR Office Visit Department of Orthopedic Surgery in [address] [phone] Jolynn Cole P.A.-C., M.S. [address] [place] [phone] 03/13/2024 3:20 PM FIRE EXTINGUISHER INSPECTOR Comprehensive Visit Department of Family Medicine, [facility] [place], in [place], [place] [address] [place] [phone] Treasure Baires M.D. [address] [place] [phone] 03/14/2024 1:30 PM FIRE EXTINGUISHER INSPECTOR Virtual Visit Section of Infectious Diseases in [place], [place] [address] [place] [phone] Silvana Marrufo M.D. [address] [place] [phone] documented as of this encounter Procedures Procedure Name Priority Date/Time Associated Diagnosis Comments CT ANKLE LEFT WITHOUT IV CONTRAST RAD - Routine (most inpatients and all outpatients) 02/07/2024 1:25 PM FIRE EXTINGUISHER INSPECTOR Pain Ankle Left documented in this encounter Results * CT Ankle Left without IV Contrast (02/07/2024 1:25 PM FIRE EXTINGUISHER INSPECTOR) Anatomical Region Laterality Modality Ankle, Lower Extremity, Musc uloskeletal RST LOS, Musculoskeletal ARZ LOS, Muskuloskeletal FLA LOS Left Computed Tomography, Compute d Tomography Impressions 02/07/2024 2:15 PM FIRE EXTINGUISHER INSPECTOR Marked demineralization throughout the ankle and visualized [...] calcifications. Remainder negative. Narrative 02/07/2024 2:15 PM FIRE EXTINGUISHER INSPECTOR EXAM: CT ANKLE LEFT WITHOUT IV CONTRAST [...] posterior recess. Arterial calcifications. Remaindernegative. Jolynn Cole P.A.-C., M.S. IMG CT PROCEDURES Final Result documented in this encounter Visit Diagnoses Diagnosis Pain Ankle Left documented in this encounter Additional Health Concerns Assessment Noted Time PHQ-9 Depression Total Score: 7 12/05/19 24 11:33 PM CDT documented as of this encounter Care Teams Senior Economist Relationship Specialty Start Date End Date Treasure Baires M.D. [address] [place] [phone] PCP - General Family Medicine 09/08/23 documented as of this encounter
--- OUTSIDE RECORDS SUMMARY | 2024-02-09 07:08 | XMS_ITS | Encounter Summary ---
Author Organization [facility] Address [address] [place] [id number] Care Team Providers Care Corporate Events Director Name Role Phone Treasure Baires M.D. Primary Care Provider [phone] Reason for Visit * Reason Comments OPAT Encounter Details Date Type Department Care Team (Late st Contact Info) Description 02/03/2024 Patient Outreach Section of Infectious Diseases in [place], [place] [address] [place] [phone] Marta Serrano M.S.N., R.N., CNRN [address] [place] [phone] OPAT Social History Tobacco Use Types Packs/Day Years Used Date Smoking Tobacco: Former Cigarettes 1 972 - 2002 Smokeless Tobacco: Never Alcohol Use Standard Drinks/Week Comments Yes 2 (1 standard drink = 0.6 oz pur e alcohol) [facility] Utilities Answer Date Recorded In the past [...] often do you attend chur ch or taoist services? 1 to 4 times per year [...] Answer Date Recorded PHQ-2 Score 3 12/05/2023 [facility] - Occupational Stress Questionnaire Answer [...] your living situation today? I have a [facility] place to live 01/17/2024 Education Answer Date Recorded What is the highest level of school you have completed or the highest degree you have received? Doctorate 09/05/2018 Comments No Sex and Gender Information Value Date Recorded Sex Assigned at Female 12/19/2016 7:29 PM BIODIESEL ENGINEERING MANAGER Legal Sex Female 7:58 AM BIODIESEL ENGINEERING MANAGER Gender Identity Female 12/19/2016 7:29 PM BIODIESEL ENGINEERING MANAGER Sexual Orientation Lesbian or Turcios 03/12/2020 12 :23 PM BIODIESEL ENGINEERING MANAGER documented as of this encounter Nursing Notes * Marta Serrano M.S.N., R.N., CNRN - 02/03/2024 10:34 AM CST OPAT NOTE - LAB REVIEW Name Phone Number OPAT Infusion: [facility] ( ) [phone] OPAT Lab: [facility] ( ) [phone] Problem: Outpatient Antimicrobial Therapy Monitoring Description: OPAT/COpAT: -Follow up pending scheduling, expected 02/26/2023 -IFD Managing Service/Provider: Ortho ID Medications: Ceftriaxone, Start Date: 01/18/2024, End date: 02/27/2024, Tentative Rifampin, Start Date: 01/18/2024, End date: 03/18/2024, Tentative Goal: Patient will obtain safety monitoring labs Description: Labs required: CBC w/ diff, Creatinine, ALT, and Alk Phos (Weekly) Baseline Creatinine: 0.71, Date: 01/17/2024 Outcome: Progressing Intervention: Labs reviewed Note: Lab results from 02/02/2024 are viewable in the MCR record--listed as External Labs (received via fax, which has been uploaded to Document Viewer/Media). Within OPAT guideline parameters Interpretation and Action: No change in plan as per OPAT Practice Guideline. Reference used: Guideline for Antimicrobial Therapy Monitoring for the Division of Infectious Diseases - PS8310-646 IESEL ENGINEERING MANAGER documented in this encounter Plan of Treatment Upcoming Encounters Date Type Department Care Team (Late st Contact Info) Description 03/01/2024 10:00 AM BIODIESEL ENGINEERING MANAGER Comprehensive Visit Section of Infectious Diseases in [address] [phone] Silvana Marrufo M.D. [address] [place] [phone] 03/01/2024 10:40 AM BIODIESEL ENGINEERING MANAGER Lab Department of Laboratory Medicine and Pathology, [facility], in [address] [phone] Jolynn Cole P.A.-C., M.S. [address] [place] [phone] 03/01/2024 11:15 AM BIODIESEL ENGINEERING MANAGER Appointment Department of Radiology, [facility] in [place], [place] [address] [place] [phone] Jolynn Cole P.A.-C., M.S. [address] [place] [phone] 03/01/2024 12:00 PM BIODIESEL ENGINEERING MANAGER Office Visit Department of Orthopedic Surgery in [place], [place] [address] [place] [phone] Jolynn Cole P.A.-C., M.S. [address] [place] [phone] 03/13/2024 3:20 PM BIODIESEL ENGINEERING MANAGER Comprehensive Visit Department of Family Medicine, [facility], in [place], [place] [address] [place] [phone] Treasure Baires M.D. [address] [phone] 03/14/2024 1:30 PM BIODIESEL ENGINEERING MANAGER Virtual Visit Section of Infectious Diseases in [place], [place] [address] [place] [phone] Silvana Marrufo M.D. [address] [place] [phone] documented as of this encounter Visit Diagnoses Not on filedocumented in this encounter Additional Health Concerns Assessment Noted Time PHQ-9 Depression Total Score: 7 12/05/19 24 11:33 PM CDT documented as of this encounter Care Teams Corporate Events Director Relationship Specialty Start Date End Date Treasure Baires M.D. [address] [place] [phone] PCP - General Family Medicine 09/08/23 documented as of this encounter
--- OUTSIDE RECORDS SUMMARY | 2024-02-09 07:08 | XMS_ITS | Encounter Summary ---
Author Organization [facility] Address [address] [place] [address] Care Team Providers Care Product Management Specialist Name Role Phone Treasure Baires M.D. Primary Care Provider [phone] Encounter Details Date Type Department Care Team (Late st Contact Info) Description 02/02/2024 Orders Only Section of Infectious Diseases in [place], [place] [address] [place] [phone] External, Ordering ProviderGerhard Social History Tobacco Use Types Packs/Day Years Used Date Smoking Tobacco: Former Cigarettes 2002 Smokeless Tobacco: Never Alcohol Use Standard Drinks/Week Comments Yes 2 (1 standard drink = 0.6 oz pur e alcohol) [facility] Utilities Answer Date Recorded In the [...] any clubs o r organizations such as denominational groups, unions, fraternal or athletic groups, or [...] Answer Date Recorded PHQ-2 Score 3 12/05/2023 [facility] - Occupational Stress Questionnaire [...] your living situation today? I have a [facility] place to live 01/17/2024 Education Answer Date Recorded What is the highest level of school you have completed or the highest degree you have received? Doctorate 09/05/2018 Comments No Sex and Gender Information Value Date Recorded Sex Assigned at Female 12/19/2016 7:29 PM ENGINEERING ASSOCIATE Legal Sex Female 7:58 AM ENGINEERING ASSOCIATE Gender Identity Female 12/19/2016 7:29 PM ENGINEERING ASSOCIATE Sexual Orientation Lesbian or Turcios 03/12/2020 12 :23 PM ENGINEERING ASSOCIATE documented as of this encounter Plan of Treatment Upcoming Encounters Date Type Department Care Team (Late st Contact Info) Description 03/01/2024 10:00 AM ENGINEERING ASSOCIATE Comprehensive Visit Section of Infectious Diseases in [place], [place] [address] [place] [phone] Silvana Marrufo M.D. [address] [place] [phone] 03/01/2024 10:40 AM ENGINEERING ASSOCIATE Lab Department of Laboratory Medicine and Pathology, [facility], in [place], [place] [address] [place] [phone] Jolynn Cole P.A.-C., M.S. [address] [place] [phone] 03/01/2024 11:15 AM ENGINEERING ASSOCIATE [facility]ment [facility] [place], [place] [address] [place] [phone] Jolynn Cole P.A.-C., M.S. [address] [place] [address] [phone] 03/01/2024 12:00 PM ENGINEERING ASSOCIATE Office Visit Department of Orthopedic Surgery in [place], [place] [address] [place] [phone] Jolynn Cole P.A.-C., M.S. [address] [place] [phone] 03/13/2024 3:20 PM ENGINEERING ASSOCIATE Comprehensive Visit Department of Family Medicine, [facility], in [place], [place] [address] [place] [phone] Treasure Baires M.D. [address] [place] [phone] 03/14/2024 1:30 PM ENGINEERING ASSOCIATE Virtual Visit Section of Infectious Diseases in [place], [place] [address] [place] [phone] Silvana Marrufo M.D. [address] [place] [phone] documented as of this encounter Procedures Procedure Name Priority Date/Time Associated Diagnosis Comments CBC WITH DIFFERENTIAL, B Routine 8:50 AM ENGINEERING ASSOCIATE ALANINE AMINOTRANSFERASE (ALT), S/P Routine 02/02/2024 8:50 AM ENGINEERING ASSOCIATE ALKALINE PHOSPHATASE, S/P Routine 02/02/2024 8:50 AM ENGINEERING ASSOCIATE CREATININE WITH EGFR, S/P Routine 02/02/2024 8:50 AM ENGINEERING ASSOCIATE documented in this encounter Results * (ABNORMAL) CBC with Differential, Blood (02/02/2024 8:50 AM ENGINEERING ASSOCIATE) EXT Leukocytes 5.01 4.50 - 11.00 K/uL [facility] EXT Hemoglobin 11.1(L) 12.0 - 16.0 gm/dL [facility] EXT Platelet Count 310 140 - 440 K/uL [facility] EXT Neutrophils 2.82 1.7 - 7.0 K/uL [facility] EXT Eosinophils 0.35 0.00 - 0.50 K/uL [facility] 02/02/2024 8:50 AM ENGINEERING ASSOCIATE Narrative [facility] - 02/02/2024 2:34 PM ENGINEERING ASSOCIATE Source result document attached to Order Number [id number] ([id number]) dated 02/02/2024. External results verified in Extract by Liberty Gonzales on 02/02/2024 at 02:31 PM. us Ordering Provider External M.Aimee LAB BLOOD ADD-ON Final Result [facility] [address] [place] [address] * Alkaline Phosphatase (02/02/2024 8:50 AM ENGINEERING ASSOCIATE) EXT Alkaline Phosphatase 144 40 - 150 U/L [facility] 02/02/2024 8:50 AM ENGINEERING ASSOCIATE Narrative [facility] - 02/02/2024 2:34 PM ENGINEERING ASSOCIATE Source result document attached to Order Number [id number] ([id number]) dated 02/02/2024. External results verified in Extract by Liberty Gonzales on 02/02/2024 at 02:31 PM. us Ordering Provider Lexi Hennessy LAB BLOOD ADD-ON Final Result Performing Organization Address [facility] de Phone Number [facility] [address] [place] [address] * ALT (Alanine Aminotransferase) (02/02/2024 8:50 AM ENGINEERING ASSOCIATE) EXT ALT 13 4 - 35 U/L [facility] 02/02/2024 8:50 AM ENGINEERING ASSOCIATE Narrative [facility] - 02/02/2024 2:34 PM ENGINEERING ASSOCIATE Source result document attached to Order Number [id number] ([id number]) dated 02/02/2024. External results verified in Extract by Liberty Gonzales on 02/02/2024 at 02:31 PM. us Ordering Provider Lexi Hennessy LAB BLOOD ADD-ON Final Result Performing Organization Address [facility] Phone Number [facility] [address] [place] [address] * Creatinine with Estimated GFR (02/02/2024 8:50 AM ENGINEERING ASSOCIATE) EXT Creatinine 0.7 0.5 - 1.5 mg/dL [facility] 02/02/2024 8:50 AM ENGINEERING ASSOCIATE Narrative [facility] - 02/02/2024 2:34 PM ENGINEERING ASSOCIATE External results verified in Extract by Liberty Gonzales on 02/02/2024 at 02:31 PM. us Ordering Provider Lexi Hennessy LAB BLOOD ADD-ON Final Result Performing Organization Address [facility]/ZIP Co de Phone Number [facility] [address] [place] [address], [facility] [phone] documented in this encounter Visit Diagnoses Not on filedocumented in this encounter Additional Health Concerns Assessment Noted Time PHQ-9 Depression Total Score: 7 12/05/19 24 11:33 PM CDT documented as of this encounter Care Teams Product Management Specialist Relationship Specialty Start Date End Date Treasure Baires M.D. [address] [phone] PCP - General Family Medicine 09/08/23 documented as of this encounter
--- OUTSIDE RECORDS SUMMARY | 2024-02-09 07:08 | XMS_ITS | Encounter Summary ---
Author Organization [facility] Address [address] [place] [phone] Care Team Providers Care Orange Picking Supervisor Name Role Phone Treasure Baires M.D. Primary Care Provider [phone] Reason for Referral * Outpatient (Routine) - Authorized Specialty Diagnoses / Procedures Referred By Cortes mak Referred To Contact Diagnoses Arthroplasty Total Knee Replacement Status Post Left Procedures Wound Care Incision Anterior;Left Knee Jolynn Cole P.A.-C., M.S. [address] [place] [phone] Phone: tel: fax: [facility] Referral ID Status Reason Start Date Expiration Date V isits Requested Visits Authorized [id number] Authorized 02/07/2024 02/06/2025 1 1 SEAFOOD ASSOCIATE * Outpatient (Routine) - Authorized Specialty Diagnoses / Procedures Referred By Cortes t Referred To Contact Diagnoses Fracture Tibial Plateau Closed Initial Left Arthroplasty Total Knee Replacement Status Post Left Procedures DX Knee Left Standing 3 Views Jolynn Cole P.A.-C., M.S. [address] [place] [phone] Phone: tel: fax: [facility] Referral ID Status Reason Start Date Expiration Date V isits Requested Visits Authorized [id number] Authorized 02/07/2024 02/06/2025 1 1 SEAFOOD ASSOCIATE * Outpatient (Routine) - Authorized Specialty Diagnoses / Procedures Referred By Cortes mak Referred To Contact Orthopedic Surgery Jolynn Cole P.A.-C., M.S. [address] [place] [phone] Phone: tel: fax: [facility] Referral ID Status Reason Start Date Expiration Date V isits Requested Visits Authorized [id number] Authorized 02/07/2024 08/08/2025 1 1 Scheduling Instructions Jolynn 12:00 SEAFOOD ASSOCIATE Reason for Visit * Reason Comments Return Visit Wound Check * Outpatient (Routine) - Closed Specialty Diagnoses / Procedures Referred By Cortes mak Referred To Contact Orthopedic Surgery Jolynn Cole P.A.-C., M.S. [address] [place] [phone] Phone: tel: fax: [facility] Referral ID Status Reason Start Date Expiration Date Visits Re quested Visits Authorized [id number] Closed 01/19/2024 07/20/2025 1 1 Encounter Details Date Type Department Care Team (Late st Contact Info) Description 02/07/2024 11:00 AM MEAT SEAFOOD ASSOCIATE Office Visit Department of Orthopedic Surgery in [place], [place] [address] [place] [phone] Jolynn Cole P.A.-C., M.S. [address] [place] [phone] Fracture Tibial Plateau Closed Initial Left (Primary Dx); Arthroplasty Total Knee Replacement Status Post Right; Arthroplasty Total Knee Replacement Status Post Left Social History Tobacco Use Types Packs/Day Years Used Date Smoking Tobacco: Former Cigarettes 2002 Smokeless Tobacco: Never Alcohol Use Standard Drinks/Week Comments Yes 2 (1 standard drink = 0.6 oz pur e alcohol) [facility] Utilities Answer Date Recorded In the past 12 months has e [employer], gas, oil, or water [employer] threatened to shut off services in your [...] week 09/13/2021 How often do you attend [facility] or restorationism services? 1 to 4 times per year 09/13/2021 Do you belong to any clubs o r organizations such as shinto groups, unions, fraternal or athletic groups, or [...] Answer Date Recorded PHQ-2 Score 3 12/05/2023 [facility] - Occupational Stress Questionnaire Answer Date [...] have a [facility] place to live 01/17/2024 Education Answer Date Recorded What is the highest level of school you have completed or the highest degree you have received? Doctorate 09/05/2018 Comments No Sex and Gender Information Value Date Recorded Sex Assigned at Female 12/19/2016 7:29 PM MEAT SEAFOOD ASSOCIATE Legal Sex Female 7:58 AM MEAT SEAFOOD ASSOCIATE Gender Identity Female 12/19/2016 7:29 PM MEAT SEAFOOD ASSOCIATE Sexual Orientation Lesbian or Turcios 03/12/2020 12 :23 PM MEAT SEAFOOD ASSOCIATE documented as of this encounter Procedure Notes * Jolynn Cole P.A.-C., M.S. - 02/07/2024 11:00 AM CSTAssociated Order(s): Wound Care Incision Anterior;Left Knee Post-Procedure Diagnose(s): Arthroplasty Total Knee Replacement Status Post Left Images from the original note were not included. Involved Side: Left Date of Injury: 07/03/2023 Date of Surgery: 07/04/2023 Application and knee spanning external fixator by Dr. Rodriguez, 07/13/2023 Adjustment of External Fixator, ORIF tibial tubercle by Dr. Milton, 09/12/2023 Total knee arthroplasty with removal of tibial tubercle hardware by Dr. Milton, 01/16/2024 Lysis of Adhesions Left knee with polyethylene exchange SUBJECTIVE: Reason for Visit: Return Visit and Wound Check History of Present Illness Ms. Romero Douglas returns approximately 3 weeks status post surgery as noted above. She reports that she is doing well. She has discontinued narcotic pain medications. She is utilizing occasional inpp-lul-qeqhhes pain medications. She does note ongoing discomfort with ambulation. She has been using her CPM machine for anywhere from 3 to 10 hours per day. She is also diligently working with physical therapy and has been able to maintain approximately 110 degrees of knee flexion. She does still have some soreness and inflammation around the knee but notes that swelling is much improved even compared to prior to surgery. She has been tolerant of IV antibiotics which were initiated in the hospital after positive intraoperative cultures were identified. She denies fever and chills. She has had no drainage from her surgical site. She is utilizing gait aids for assistance with mobility. She is here today for suture removal. As she is making improvements with her knee, she has been noting more pain around the left ankle. She notes that she has had pain in the ankle since application of the external fixator. Pain is located in the ankle joint. She has also noted a nodule that is mobile around the ankle joint. OBJECTIVE: vitals were not taken for this visit. Physical Exam: GENERAL: The patient is alert and oriented. NEURO: Decreased sensation to the lateral aspect of the left knee in into the left wahl. This is unchanged from prior to recent surgery. Sensation is otherwise intact. Able to fire the tibialis anterior, gastroc/soleus complex, EHL, FHL, and peroneus brevis. SKIN: Incision is clean, dry, and intact without erythema or drainage. See procedure note below fordetails of suture removal. VESSELS: Well-perfused appearing left lower extremity GAIT: The patient is able to rise from the exam table in independently ambulate without gait aids to the wheelchair. MSK: Knee extension to 0 degrees, knee flexion to 110 degrees. ASSESSMENT/PLAN: Radiographs: No new imaging studies obtained today Plan: We reviewed interval progress, radiographs, and plan for Ms. Romero Douglas. Overall, she is doing well and making progress with therapy. Swelling has been managed. She is tolerating her IV antibiotics and is feeling well overall. Denies fever and chills. Activity: Encouraged continuation of knee range of motion exercises with focus on flexion and extension. She may continue to utilize the CPM machine if she finds it to be beneficial. Encouraged continued formal physical therapy. Immobilization: None Pain: Encourage continuation of over the counter pain medication, ice and elevation as needed. Wound Care: Surgical sutures have been removed today. Okay to shower getting surgical site wet but advised to avoid submerging in standing water until all scabbing has resolved. DVT Prophylaxis: Continue aspirin 81 mg b.i.d. through 02/13/2024. Follow Up: We will see the patient back in clinic on 03/01/2024 with the Infectious Disease team. We will repeat x-rays at that time and check patient's functional status. The ID team will help to determine next steps in treatment of infection. Patient encouraged to contact Dr. Milton's team with any questions or concerns prior to follow up visit. CLINICAL OUTCOME ASSESSMENT: Current weight bearing status: Weight bearing as tolerated SANE Score (How would you rate your knee today as a percentage of normal?): Not evaluated LMP (LMP Unknown) Pain assessment: 04/16; Location:Left Leg 12/13/2023 01/06/2024 02/01/2024 Sports Medicine PROMIS-CAT: Pain interference 71 (severe) 73 (severe) 62 (moderate) PROMIS-CAT: Physical function 32 (moderate dysfunction) 29 (severe dysfunction) 34 (moderate dysfunction) Wound Care Incision Anterior;Left Knee Performed by: Jolynn Cole P.A.-C., MPrakashSPrakash Authorized by: Jolynn Cole P.A.-C., M.S. PROCEDURE DETAILS Wound care performed: sutures removed [...] to injury: normal Complications: no immediate complications SEAFOOD ASSOCIATE documented in this encounter Plan of Treatment Upcoming Encounters Date Type Department Care Team (Late st Contact Info) Description 03/01/2024 10:00 AM MEAT SEAFOOD ASSOCIATE Comprehensive Visit Section of Infectious Diseases in [address] [phone] Silvana Marrufo M.D. [address] [place] [phone] 03/01/2024 10:40 AM MEAT SEAFOOD ASSOCIATE Lab Department of Laboratory Medicine and Pathology, [facility] in [address] [phone] Jolynn Cole P.A.-C., M.S. [address] [place] [phone] 03/01/2024 11:15 AM MEAT SEAFOOD ASSOCIATE Appointment Department of Radiology, [address] [phone] Jolynn Cole P.A.-C., M.S. [address] [place] [phone] 03/01/2024 12:00 PM MEAT SEAFOOD ASSOCIATE Office Visit Department of Orthopedic Surgery in [place], [place] [address] [place] [phone] Jolynn Cole P.A.-C., M.S. [address] [place] [phone] 03/13/2024 3:20 PM MEAT SEAFOOD ASSOCIATE Comprehensive Visit Department of Family Medicine, [facility], in [place], [place] [address] [phone] Treasure Baires M.D. [address] [place] [phone] 03/14/2024 1:30 PM MEAT SEAFOOD ASSOCIATE Virtual Visit Section of Infectious Diseases in [place], [place] [address] [place] [phone] Silvana Marrufo M.D. [address] [place] [phone] Scheduled Orders Name Type Priority Associated Diagnoses Orde r Schedule CRP (C-Reactive Protein) Lab Routine Fracture Tibial Plateau Closed Initial Left Arthroplasty Total Knee Replacement Status Post Right Expected: 03/01/2024, Expires: 05/07/2025 Sedimentation Rate Lab Routine Fracture Tibial Plateau Closed Initial Left Arthroplasty Total Knee Replacement Status Post Right Expected: 03/01/2024, Expires: 02/06/2025 CBC with Differential, Blood Lab Routine Fracture Tibial Plateau Closed Initial Left Arthroplasty Total Knee Replacement Status Post Right Expected: 03/01/2024, Expires: 02/06/2025 DX Knee Left Standing 3 Views Imaging RAD - Routine (most inpatients and all outpatients) Fracture Tibial Plateau Closed Initial Left Arthroplasty Total Knee Replacement Status Post Left Expected: 03/01/2024, Expires: 05/07/2025 Scheduled Referrals Name Type Priority Associated Diagnoses Order Schedule Orthopedic Surgery office visit (clinic) Outpatient Referral Routine Expected: 02/27/2024, Expires: 05/07/2025 documented as of this encounter Procedures Procedure Name Priority Date/Time Associated Diagnosis Comments WOUND CARE Routine 02/07/2024 11:00 AM MEAT SEAFOOD ASSOCIATE Arthroplasty Total Knee Replacement Status Post Left documented in this encounter Results * Wound Care Incision Anterior;Left Knee (02/07/2024 11:00 AM MEAT SEAFOOD ASSOCIATE) Narrative [facility] - 02/07/2024 11:00 AM MEAT SEAFOOD ASSOCIATE Jolynn Cole P.A.-C., M.SPrakash 02/07/2024 2:27 PM Wound Care Incision Anterior;Left Knee Performed by: Jolynn Cole P.A.-C. MKaila Authorized by: Jolynn Cole P.A.-C., M.SPrakash PROCEDURE DETAILS Wound care performed: sutures removed [...] injury: normal Complications: no immediate complications Jolynn oCle P.A.-C., M.S. PROCEDURE/MINOR S URGICAL ORDERABLES Final Result [facility] NA documented in this encounter Visit Diagnoses Diagnosis Fracture Tibial Plateau Closed Initial Left- Primary Arthroplasty Total Knee Replacement Status Post Right Arthroplasty Total Knee Replacement Status Post Left documented in this encounter Additional Health Concerns Assessment Noted Time PHQ-9 Depression Total Score: 7 12/05/19 24 11:33 PM CDT documented as of this encounter Care Teams Orange Picking Supervisor Relationship Specialty Start Date End Date Treasure Baires M.D. [address] [phone] PCP - General Family Medicine 09/08/23 documented as of this encounter
--- OUTSIDE RECORDS SUMMARY | 2024-02-09 07:08 | XMS_ITS | Encounter Summary ---
Author Organization [facility] Address [address] [place] [address] Care Team Providers Care Archeology Faculty Member Name Role Phone Treasure Baires M.D. Primary Care Provider [phone] Reason for Visit * Reason Comments OPAT Encounter Details Date Type Department Care Team (Late st Contact Info) Description 01/27/2024 Patient Outreach Section of Infectious Diseases in [place], [place] [address] [place] [phone] Lisseth Fernandes R.N. OPAT Social History Tobacco Use Types Packs/Day Years Used Date Smoking Tobacco: Former Cigarettes 2002 Smokeless Tobacco: Never Alcohol Use Standard Drinks/Week Comments Yes 2 (1 standard drink = 0.6 oz pur e alcohol) [facility] Utilities Answer Date Recorded In [...] often do you attend chur ch or jew services? 1 to 4 times per year 09/13/2021 Do you belong to any clubs o r organizations such as scientology groups, unions, fraternal or athletic groups, or [...] Answer Date Recorded PHQ-2 Score 3 12/05/2023 [facility] [place] [facility] - Occupational Stress [...] your living situation today? I have a [facility] place to live 01/17/2024 Education Answer Date Recorded What is the highest level of school you have completed or the highest degree you have received? Doctorate 09/05/2018 Comments No Sex and Gender Information Value Date Recorded Sex Assigned at Female 12/19/2016 7:29 PM METAL BENDING MACHINE OPERATOR Legal Sex Female 7:58 AM METAL BENDING MACHINE OPERATOR Gender Identity Female 12/19/2016 7:29 PM METAL BENDING MACHINE OPERATOR Sexual Orientation Lesbian or Turcios 03/12/2020 12 :23 PM METAL BENDING MACHINE OPERATOR documented as of this encounter Nursing Notes * Lisseth Fernandes R.N. - 01/27/2024 2:11 PM CST OPAT NOTE - LAB REVIEW Name Phone Number OPAT [facility] [phone] OPAT Lab: [facility] ( ) [phone] Problem: Outpatient Antimicrobial Therapy Monitoring Description: OPAT/COpAT: -Follow up pending scheduling, expected 02/26/2023 -IFD Managing Service/Provider: Ortho ID Medications: Ceftriaxone, Start Date: 01/18/2024, End date: 02/27/2024, Tentative Rifampin, Start Date: 01/18/2024, End date: 03/18/2024, Tentative Goal: Patient will obtain safety monitoring labs Description: Labs required: CBC w/ diff, Creatinine, ALT, and Alk Phos (Weekly) Baseline Creatinine: 0.71, Date: 01/17/2024 Intervention: Labs reviewed Note: Lab results from 01/26/24 are viewable in the MCR record--listed as External Labs (receivedvia fax, which has been uploaded to Document Viewer/Media). Within OPAT guideline parameters Interpretation and Action: No change in plan as per OPAT Practice Guideline. Reference used: Guideline for Antimicrobial Therapy Monitoring for the Division of Infectious Diseases - [id number] L BENDING MACHINE OPERATOR documented in this encounter Plan of Treatment Upcoming Encounters Date Type Department Care Team (Late st Contact Info) Description 03/01/2024 10:00 AM METAL BENDING MACHINE OPERATOR Comprehensive Visit Section of Infectious Diseases in [address] [phone] Silvana Marrufo M.D. [address] [place] [phone] 03/01/2024 10:40 AM METAL BENDING MACHINE OPERATOR Lab Department of Laboratory Medicine and Pathology, [facility] in [address] [phone] Jolynn Cole P.A.-C., M.S. [address] [place] [phone] 03/01/2024 11:15 AM METAL BENDING MACHINE OPERATOR Appointment Department of Radiology, [facility] in [place] [address] [place] [phone] Jolynn Cole P.A.-C., M.S. [address] [place] [phone] 03/01/2024 12:00 PM METAL BENDING MACHINE OPERATOR Office Visit Department of Orthopedic Surgery in [place], [place] [address] [place] [phone] Jolynn Cole P.A.-C., M.S. [address] [place] [phone] 03/13/2024 3:20 PM METAL BENDING MACHINE OPERATOR Comprehensive Visit Department of Family Medicine, [facility], in [place], [place] [address] [phone] Treasure Baires M.D. [address] [phone] 03/14/2024 1:30 PM METAL BENDING MACHINE OPERATOR Virtual Visit Section of Infectious Diseases in [place], [place] [address] [place] [phone] Silvana Marrufo M.D. [address] [place] [phone] documented as of this encounter Visit Diagnoses Not on filedocumented in this encounter Additional Health Concerns Assessment Noted Time PHQ-9 Depression Total Score: 7 12/05/19 24 11:33 PM CDT documented as of this encounter Care Teams Archeology Faculty Member Relationship Specialty Start Date End Date Treasure Baires M.D. [address] [phone] PCP - General Family Medicine 09/08/23 documented as of this encounter
--- OUTSIDE RECORDS SUMMARY | 2024-02-09 07:08 | XMS_ITS | Referral Summary ---
Author Organization [facility] Address [address] [place] [address] Care Team Providers Care Bench Assembler Electrical Name Role Phone Treasure Baires M.D. Primary Care Provider Source Comments Patient records contain information from all sites at [facility]. For routine questions regarding patient records, call [phone] during business hours, M-F 8:00 AM - 5:00 PM Central Time. Record requests for emergency care only can be directed to [phone] at any time.[facility] Encounters Date Type Department Care Team Description 02/07/2024 12:56 PM HOUSE CLEANER SUPERVISOR - 02/07/2024 11:59 PM HOUSE CLEANER SUPERVISOR Hospital Encounter Department of Radiology, [facility], in [place], [place] [address] [place] [address] Jolynn Cole P.A.-C., M.S. Pain Ankle Left Discharge Disposition: Home or Self Care 02/07/2024 11:00 AM HOUSE CLEANER SUPERVISOR Office Visit Department of Orthopedic Surgery in [place], [place] [address] [place] [address] Jolynn Cole P.A.-C., M.S. Fracture Tibial Plateau Closed Initial Left (Primary Dx); Arthroplasty Total Knee Replacement Status Post Right; Arthroplasty Total Knee Replacement Status Post Left 02/06/2024 Orders Only Department of Orthopedic Surgery in [place], [place] [address] [place] [phone] Jolynn Cole P.A.-C., M.S. Pain Ankle Left (Primary Dx) 02/03/2024 Patient Outreach Section of Infectious Diseases in [place], [place] [address] [place] [phone] Marta Serrano M.S.N., R.N., CNRN OPAT 02/02/2024 Orders Only Section of Infectious Diseases in [place], [place] [address] [place] [phone] External, Ordering Provider, [place] 01/27/2024 Patient Outreach Section of Infectious Diseases in [place], [place] [address] [place] [phone] Lisseth Fernandes R.N. OPAT 01/26/2024 Orders Only Section of Infectious Diseases in [place], [place] [address] [place] [phone] External, Ordering Provider, [place]ancy 01/25/2024 Orders Only Department of Orthopedic Surgery in [address] [phone] Jolynn Cole P.A.-C., M.S. 01/24/2024 1:30 PM HOUSE CLEANER SUPERVISOR Virtual Visit Section of Infectious Diseases in [place], [place] [address] [place] [phone] Silvana Marrufo M.D. Johnson, Tanner M, Pharm.D., R.Ph. Dealership General Manager Antibiotic Treatment 01/20/2024 Patient Outreach Section of Infectious Diseases in [place], [place] [address] [place] [phone] Liberty Gonzales OPAT 01/19/2024 Orders Only Department of Orthopedic Surgery in [place], [place] [address] [place] [phone] Jolynn Cole P.A.-C., M.S. 01/16/2024 7:29 AM HOUSE CLEANER SUPERVISOR - 01/19/2024 1:56 PM HOUSE CLEANER SUPERVISOR Hospital Encounter [facility], [facility], Ninth Floor [address] [place] [phone] Brock Milton M.D. Infection Total Knee Arthroplasty Initial Left (HCC) (Primary Dx); Aftercare Total Knee Arthroplasty; Decline Functional Status [R53.81] Discharge Disposition: Home or Self Care 01/18/2024 Clinical Communication [facility] [address] [place] [phone] Silvana Marrufo M.D. Post Hospital Follow-up 01/16/2024 Ancillary Procedure Department of Orthopedic Surgery 01/16/2024 Clinical Communication Department of Orthopedic Surgery in [address] [phone] Brock Milton M.D. 01/16/2024 10:18 AM HOUSE CLEANER SUPERVISOR - 01/16/2024 1:58 PM HOUSE CLEANER SUPERVISOR Surgery [facility] [address] [place] [phone] Brock Milton M.D. LEFT TOTAL KNEE LYSIS OF ADHESIONS, POLYETHYLENE EXCHANGE 01/16/2024 10:54 AM HOUSE CLEANER SUPERVISOR Anesthesia Event RST ROM[facility] MAIN OR [address] [place] [phone] Satish Garcia III, M.D. Stephenson, Anthony A, M.D. 01/13/2024 8:23 AM HOUSE CLEANER SUPERVISOR - 01/13/2024 11:59 PM HOUSE CLEANER SUPERVISOR Hospital Encounter Department of Radiology, [facility] in [address] [phone] Jolynn Cole P.A.-C., M.S. Aftercare Total Knee Arthroplasty Discharge Disposition: Home or Self Care 01/13/2024 9:30 AM HOUSE CLEANER SUPERVISOR Office Visit Department of Orthopedic Surgery in [address] [phone] Brock Milton M.D. Chirpich, Erika P, P.A.-C., M.S. Fracture Tibial Plateau Closed Initial Left (Primary Dx); Aftercare Total Knee Arthroplasty 01/09/2024 Orders Only Department of Orthopedic Surgery in [address] [phone] Jolynn Cole P.A.-C., M.S. 12/06/2023 2:02 PM CDT - 12/06/2023 11:59 PM CDT Hospital Encounter Department of Laboratory Medicine in [address] [phone] Keiry Alamo P.A.-C. Fracture Tibia Bicondylar Nondisplaced Closed Subsequent With Malunion Left Discharge Disposition: Home or Self Care 12/06/2023 1:30 PM CDT Office Visit Department of Family Medicine, [facility], in [address] [phone] Keiry Alamo P.A.-C. Fracture Tibia Bicondylar Nondisplaced Closed Subsequent With Malunion Left (Primary Dx); Overweight Body Mass Index 25-29.9 Adult; Depression Major; Anxiety Generalized Disorder; PreDiabetes; Hypercholesterolemia; Hypothyroidism 12/05/2023 Orders Only Department of Orthopedic Surgery in [address] [phone] Jolynn Cole P.A.-C., M.S. Aftercare Total Knee Arthroplasty (Primary Dx) 11/29/2023 11:46 AM CDT - 11/29/2023 11:59 PM CDT Hospital Encounter Department of Radiology, [facility], in [address] [phone] Jolynn Cole P.A.-C., M.S. Aftercare Total Knee Arthroplasty Discharge Disposition: Home or Self Care 11/29/2023 1:15 PM CDT Office Visit Department of Orthopedic Surgery in [address] [phone] Brock Milton M.D. Aftercare Total Knee Arthroplasty (Primary Dx) 11/25/2023 11:45 AM CDT - 11/25/2023 11:59 PM CDT Hospital Encounter Department of Laboratory Medicine in [address] [phone] Lilli Chacon M.D. Hyperlipidemia Mixed; Screening Examination Diabetes Mellitus; Hypothyroidism; Iron Deficiency Anemia Screening Exam Discharge Disposition: Home or Self Care 11/23/2023 Refill Department of Family Medicine, [facility], in [address] [phone] Treasure Baires M.D. Med Refill 11/23/2023 Clinical Communication Department of Family Medicine, [facility], in [address] [phone] Treasure Baires M.D. 11/23/2023 2:30 PM CDT Clinical Communication Virtual Review in [address] [phone] Pre-visit Intake 11/22/2023 Refill Department of Family Medicine, [facility], in [address] [phone] Lilli Chacon M.D. Med Refill from Last 3 Months Allergies Active Allergy [...] 2 tablets by mouth daily with breakfast. Active sennosides-do cusate sodium (SENOKOT-S) 8.6-50 mg [...] after medications administration and as needed for crawler dragline operator. 10 mL 11 Active aspirin 81 mg [...] 03/18/2024 236 capsule 01/19/20 24 2:24 PM HOUSE CLEANER SUPERVISOR 2024 Active oxyCODONE (Roxicodone) 10 mg IR [...] dose to 5 mg tabs. 25 tablet 2023 Discontinued cefTRIAXone in dextrose, iso osm, [...] after medications administration and as needed for crawler dragline operator. 10 mL 11 2023 Discontinued oxyCODONE (Roxicodone) 10 mg IR tabletIndicat ions:Acute Pain Exception Take 1 tablet (10 mg total) by mouth every 3 (three) hours as needed for pain. Wean down on medication as able. 30 tablet 01/19/20 24 2:24 PM HOUSE CLEANER SUPERVISOR 024 2023 Discontinued(R eorder) Active Problems Problem [...] Preservative Free (TENIVAC, DECAVAC) 01/27/20 18 influenza trivalent high dose (HD)(PF) 9,01/26/2018,12/25/2016 influenza trivalent vaccine (6 months and older)(PF) 10/19/2012,10/26/2010 Social History Tobacco Use Types Packs/Day Years Used Date Smoking Tobacco: Former Cigarettes 2002 Smokeless Tobacco: Never Tobacco Cessation:Counseling Given: Not Answered Alcohol Use Standard Drinks/Week Comments Yes 2 (1 standard drink = 0.6 oz pur e alcohol) [facility] Utilities Answer Date Recorded In the past 12 months has e Smartsheet, gas, oil, or water [employer] Undergarments threatened to shut off services in your [...] any clubs o r organizations such as taoism groups, unions, fraternal or athletic groups, or [...] Answer Date Recorded PHQ-2 Score 3 12/05/[address] [facility] - Occupational Stress Questionnaire Answer Date Recorded [...] your living situation today? I have a [facility] place to live 01/17/2024 Education Answer Date Recorded What is the highest level of school you have completed or the highest degree you have received? Doctorate 09/05/2018 Comments No Sex and Gender Information Value Date Recorded Sex Assigned at Female 12/19/2016 7:29 PM HOUSE CLEANER SUPERVISOR Legal Sex Female 7:58 AM HOUSE CLEANER SUPERVISOR Gender Identity Female 12/19/2016 7:29 PM HOUSE CLEANER SUPERVISOR Sexual Orientation Lesbian or Turcios 03/12/2020 12 :23 PM HOUSE CLEANER SUPERVISOR Last Filed Vital Signs Vital Sign Reading Time Taken Comments Blood Pressure 133/67 01/18/2024 4:00 AM HOUSE CLEANER SUPERVISOR Pulse 90 01/19/2024 12:41 PM HOUSE CLEANER SUPERVISOR Temperature 36.6 C (97.9 F) 01/19/2024 5:00 AM HOUSE CLEANER SUPERVISOR Respiratory Rate 22 01/19/2024 12:41 PM HOUSE CLEANER SUPERVISOR Oxygen Saturation 97% 01/19/2024 12:41 PM HOUSE CLEANER SUPERVISOR Inhaled Oxygen Concentration - - Weight 73.5 kg (162 lb 0.6 oz) 01/18/2024 10:15 PM HOUSE CLEANER SUPERVISOR Height 163 cm (5' 4.17) 01/16/2024 8:03 AM HOUSE CLEANER SUPERVISOR Body Mass Index 27.66 01/16/2024 8:03 AM HOUSE CLEANER SUPERVISOR Plan of Treatment Upcoming Encounters Date Type Department Care Team (Late st Contact Info) Description 03/01/2024 10:00 AM HOUSE CLEANER SUPERVISOR Comprehensive Visit Section of Infectious Diseases in [address] [phone] Silvana Marrufo M.D. [address] [place] [phone] 03/01/2024 10:40 AM HOUSE CLEANER SUPERVISOR Lab Department of Laboratory Medicine and Pathology, [facility], in [address] [phone] Jolynn Cole P.A.-C., M.S. [address] [place] [phone] 03/01/2024 11:15 AM HOUSE CLEANER SUPERVISOR Appointment Department of Radiology, [facility] in [place], [place] [address] [place] [phone] Jolynn Cole P.A.-C., M.S. [address] [place] [phone] 03/01/2024 12:00 PM HOUSE CLEANER SUPERVISOR Office Visit Department of Orthopedic Surgery in [place], [place] [address] [place] [phone] Jolynn Cole P.A.-C., M.S. [address] [place] [phone] 03/13/2024 3:20 PM HOUSE CLEANER SUPERVISOR Comprehensive Visit Department of Family Medicine, [facility], in [place], [place] [address] [place] [phone] Treasure Baires M.D. [address] [place] [phone] 03/14/2024 1:30 PM HOUSE CLEANER SUPERVISOR Virtual Visit Section of Infectious Diseases in [place], [place] [address] [place] [phone] Silvana Marrufo M.D. [address] [place] [phone] Medical Devices Implanted Type Area Traveling Operator Device Identifier Shelf Expiration Date Model / Serial / Lot Cmnt Bn Smp 40gm - [id number] Implanted:Qty : 4 on 09/12/2023 by Brock Milton M.D. at [facility] Bone Cement Left: Knee [place] 06/06/2025 6191-1-00 1 / / [id number] Cplng Ext Fx Crbnfb 5x8 - [id number] Implanted:Qty : 7 on 07/04/2023 by Jaxson Rodriguez M.D. at [facility] Hardware e.g. pins/screws/ rods Hang 4922-1-01 0 / / Hilario Ext Fx Crbnfb 77z510 - [id number] Implanted:Qty : 2 on 07/04/2023 by Jaxson Rodriguez M.D. at [facility] Hardware e.g. pins/screws/ rods Hang 4922-8-50 0 / / Hilario Ext Fx Crbnfb 09u883 - [id number] Implanted:Qty : 1 on 07/04/2023 by Jaxson Rodriguez M.D. at [facility] Hardware e.g. pins/screws/ rods Hang 4922-8-40 0 / / Pin Ext Fx Ss St Apx 5x397w86 - [id number] Implanted:Qty : 1 on 07/04/2023 by Jaxson Rodriguez M.D. at [facility] Hardware e.g. pins/screws/ rods Hang 5020-8-25 0 / / Pin Ext Fx Ss St Apx 5x180 - [id number] Implanted:Qty : 3 on 07/04/2023 by Jaxson Rodriguez M.D. at [facility] Hardware e.g. pins/screws/ rods Hang 5020-7-18 0 / / Kn Fem Trt Lt Cmnt Sz-5 - [id number] Implanted:Qty : 1 on 09/12/2023 by Brock Milton M.D. at [facility] Knee Implant Left: Knee [place] 05/16/2028 5512-F-50 1 / / [id number] Pat Mko Asym 10x32 - [id number] Implanted:Qty : 1 on 09/12/2023 by Brock Milton M.D. at [facility] Knee Implant Left: Knee Hang 07/18/2027 5551-G-32 0-E / / [id number] Kn [facility] Cmnt 12x50 - [id number] Implanted:Qty : 1 on 09/12/2023 by Brock Milton M.D. at [facility] Knee Implant Left: Knee [place] 06/02/2028 5560-S-11 2 / / [id number] Tib Aug Tr Cn Sz-B - [id number] Implanted:Qty : 1 on 09/12/2023 by Brock Milton M.D. at [facility] Knee Implant Left: Knee [place] 05/25/2028 5549-A-12 0 / / [id number] Triathlon Revision Tibial Baseplate Implanted:Qty : 1 on 09/12/2023 by Brock Milton M.D. at [facility] Knee Implant Left: Knee [place] [id number] 10/18/2027 5612-B-40 0 / / [id number] Triathlon Fluted Stem Implanted:Qty : 1 on 09/12/2023 by Brock Milton M.D. at [facility] Knee Implant Left: Knee Hang [id number] 03/31/2024 5566-S-01 1 / / [id number] Triathlon Revision Insert X3 Implanted:Qty : 1 on 09/12/2023 by Brock Milton M.D. at [facility] Knee Implant Left: Knee Hang [id number] 08/23/2027 5612-X-41 1 / / [id number] Triathlon Revision Insert X3 9mm Implanted:Qty : 1 on 01/16/2024 by Brock Milton M.D. at [facility] Knee Implant Left: Knee [place] 08/04/2027 5612-X-40 9 / / [id number] Explanted Type Area Traveling Operator Device Identifier Shelf Expiration Date Model / Serial / Lot Pin Hlf Ext Fix Apx St [id number] - [id number] Implanted:Qty : 1 on 07/13/2023 by Brock Milton M.D. at [facility] Explanted:Qty : 1 on 09/12/2023 at [facility] Hardware e.g. pins/screws/ rods Left: Leg [place] 5020-6-200 / / Scrw Dcp St 2.7x26 - [id number] Implanted:Qty : 1 on 07/13/2023 by Brock Milton M.D. at [facility] Explanted:Qty : 1 on 09/12/2023 by Brock Milton M.D. at [facility] Hardware e.g. pins/screws/ rods Left: Leg Depuy Synthes 202.826 / / Scrw Dcp St 2.7x32 - [id number] Implanted:Qty : 1 on 07/13/2023 by Brock Milton M.D. at [facility] Explanted:Qty : 1 on 09/12/2023 by Brock Milton M.D. at [facility] Hardware e.g. pins/screws/ rods Left: Leg Depuy Synthes 202.832 / / Procedures Procedure Name Priority Date/Time Associated Diagnosis Comments CT ANKLE LEFT WITHOUT IV CONTRAST RAD - Routine (most inpatients and all outpatients) 02/07/2024 1:25 PM HOUSE CLEANER SUPERVISOR Pain Ankle Left WOUND CARE Routine 02/07/2024 11:00 AM HOUSE CLEANER SUPERVISOR Arthroplasty Total Knee Replacement Status Post Left CBC WITH DIFFERENTIAL, B Routine 02/02/2024 8:50 AM HOUSE CLEANER SUPERVISOR ALKALINE PHOSPHATASE, S/P Routine 02/02/2024 8:50 AM HOUSE CLEANER SUPERVISOR ALANINE AMINOTRANSFERASE (ALT), S/P Routine 02/02/2024 8:50 AM HOUSE CLEANER SUPERVISOR CREATININE WITH EGFR, S/P Routine 02/02/2024 8:50 AM HOUSE CLEANER SUPERVISOR ALKALINE PHOSPHATASE, S/P Routine 01/26/2024 10:24 AM HOUSE CLEANER SUPERVISOR ALANINE AMINOTRANSFERASE (ALT), S/P Routine 01/26/2024 10:24 AM HOUSE CLEANER SUPERVISOR CREATININE WITH EGFR, S/P Routine 01/26/2024 10:24 AM HOUSE CLEANER SUPERVISOR CBC WITH DIFFERENTIAL, B Routine 01/26/2024 10:24 AM HOUSE CLEANER SUPERVISOR ALKALINE PHOSPHATASE, S/P Routine 01/19/2024 12:54 PM HOUSE CLEANER SUPERVISOR Aftercare Total Knee Arthroplasty Infection Total Knee Arthroplasty Initial Left (HCC) PERFORM CENTRAL GROCERY SUPERVISOR Routine 01/19/2024 11:00 [address] HOUSE CLEANER SUPERVISOR PLACE PERIPHERALLY INSERTED CENTRAL CATHETER (PICC) Routine 01/18/2024 8:30 PM HOUSE CLEANER SUPERVISOR HEPATIC FUNCTION PANEL, S Timed 01/18/2024 6:55 AM HOUSE CLEANER SUPERVISOR SEDIMENTATION RATE, B Timed 01/18/2024 6:55 AM HOUSE CLEANER SUPERVISOR C-REACTIVE PROTEIN (CRP), S/P Timed 01/18/2024 6:55 AM HOUSE CLEANER SUPERVISOR HEPATIC FUNCTION PANEL, S Routine 01/18/2024 5:56 AM HOUSE CLEANER SUPERVISOR SEDIMENTATION RATE, B Routine 01/18/2024 5:56 AM HOUSE CLEANER SUPERVISOR C-REACTIVE PROTEIN (CRP), S/P Routine 01/18/2024 5:56 AM HOUSE CLEANER SUPERVISOR ADULT OXYGEN THERAPY Routine 01/17/2024 8:01 PM HOUSE CLEANER SUPERVISOR ADULT OXYGEN THERAPY Routine 01/17/2024 8:01 PM HOUSE CLEANER SUPERVISOR ADULT OXYGEN THERAPY Routine 01/17/2024 8:01 PM HOUSE CLEANER SUPERVISOR ADULT OXYGEN THERAPY Routine 01/17/2024 11:32 AM HOUSE CLEANER SUPERVISOR ADULT OXYGEN THERAPY Routine 01/17/2024 11:32 AM HOUSE CLEANER SUPERVISOR ADULT OXYGEN THERAPY Routine 01/17/2024 11:32 AM HOUSE CLEANER SUPERVISOR ADULT OXYGEN THERAPY Routine 01/17/2024 11:32 AM HOUSE CLEANER SUPERVISOR ADULT OXYGEN THERAPY Routine 01/17/2024 8:02 AM HOUSE CLEANER SUPERVISOR CBC WITHOUT DIFFERENTIAL, B Routine 01/17/2024 5:09 AM HOUSE CLEANER SUPERVISOR BASIC METABOLIC PANEL, S/P Routine 01/17/2024 5:09 AM HOUSE CLEANER SUPERVISOR ADULT OXYGEN THERAPY Routine 01/16/2024 8:01 PM HOUSE CLEANER SUPERVISOR ADULT OXYGEN THERAPY Routine 01/16/2024 1:19 PM HOUSE CLEANER SUPERVISOR ADULT OXYGEN THERAPY Routine 01/16/2024 1:19 PM HOUSE CLEANER SUPERVISOR ADULT OXYGEN THERAPY Routine 01/16/2024 1:19 PM HOUSE CLEANER SUPERVISOR ADULT OXYGEN THERAPY Routine 01/16/2024 1:18 PM HOUSE CLEANER SUPERVISOR DX KNEE LEFT 2 VIEWS RAD - Routine (most inpatients and all outpatients) 01/16/2024 1:15 PM HOUSE CLEANER SUPERVISOR BACTERIA CULT, AEROBE/ANAEROBE+SUSC Routine 01/16/2024 11:40 AM HOUSE CLEANER SUPERVISOR BACTERIA CULT, AEROBE/ANAEROBE+SUSC Routine 01/16/2024 11:40 AM HOUSE CLEANER SUPERVISOR BACTERIA CULT, AEROBE/ANAEROBE+SUSC Routine 01/16/2024 11:40 AM HOUSE CLEANER SUPERVISOR MYCOBACTERIAL CULTURE, V Routine 01/16/2024 11:40 AM HOUSE CLEANER SUPERVISOR Aftercare Total Knee Arthroplasty MYCOBACTERIAL CULTURE, V Routine 01/16/2024 11:40 AM HOUSE CLEANER SUPERVISOR Aftercare Total Knee Arthroplasty MYCOBACTERIAL CULTURE, V Routine 01/16/2024 11:40 AM HOUSE CLEANER SUPERVISOR Aftercare Total Knee Arthroplasty FUNGAL SMEAR Routine 01/16/2024 11:40 AM HOUSE CLEANER SUPERVISOR Aftercare Total Knee Arthroplasty FUNGAL SMEAR Routine 01/16/2024 11:40 AM HOUSE CLEANER SUPERVISOR Aftercare Total Knee Arthroplasty FUNGAL SMEAR Routine 01/16/2024 11:40 AM HOUSE CLEANER SUPERVISOR Aftercare Total Knee Arthroplasty ACID FAST SMEAR FOR MYCOBACTERIUM Routine 01/16/2024 11:40 AM HOUSE CLEANER SUPERVISOR Aftercare Total Knee Arthroplasty ACID FAST SMEAR FOR MYCOBACTERIUM Routine 01/16/2024 11:40 AM HOUSE CLEANER SUPERVISOR Aftercare Total Knee Arthroplasty ACID FAST SMEAR FOR MYCOBACTERIUM Routine 01/16/2024 11:40 AM HOUSE CLEANER SUPERVISOR Aftercare Total Knee Arthroplasty GRAM STAIN Routine 01/16/2024 11:40 AM HOUSE CLEANER SUPERVISOR Aftercare Total Knee Arthroplasty GRAM STAIN Routine 01/16/2024 11:40 AM HOUSE CLEANER SUPERVISOR Aftercare Total Knee Arthroplasty GRAM STAIN Routine 01/16/2024 11:40 AM HOUSE CLEANER SUPERVISOR Aftercare Total Knee Arthroplasty FUNGAL CULTURE, ROUTINE Routine 01/16/2024 11:40 AM HOUSE CLEANER SUPERVISOR Aftercare Total Knee Arthroplasty FUNGAL CULTURE, ROUTINE Routine 01/16/2024 11:40 AM HOUSE CLEANER SUPERVISOR Aftercare Total Knee Arthroplasty FUNGAL CULTURE, ROUTINE Routine 01/16/2024 11:40 AM HOUSE CLEANER SUPERVISOR Aftercare Total Knee Arthroplasty OR INJ INF/BOLUS LUMB/SACRAL DX WO IMG Routine 01/16/2024 11:10 AM HOUSE CLEANER SUPERVISOR LDA ANE EPIDURAL CATHETER Routine 01/16/2024 11:10 AM HOUSE CLEANER SUPERVISOR LDA ANE ENDOTRACHEAL AIRWAY Routine 01/16/2024 11:08 AM HOUSE CLEANER SUPERVISOR ARTHROPLASTY REPLACEMENT TOTAL KNEE 01/16/2024 10:21 AM HOUSE CLEANER SUPERVISOR Aftercare Total Knee Arthroplasty Case Notes Tank Shop Supervisor @ 0736 Special Needs Supine, hip rest, 3 tissue cultures, size 4 tibial polys available for [place] revision system (unknown current poly size), pulsavac. ORTHOPEDIC SURGERY IMAGE EXAM Routine 01/16/2024 12:00 AM HOUSE CLEANER SUPERVISOR DX KNEE LEFT STANDING 3 VIEWS RAD - Routine (most inpatients and all outpatients) 01/13/2024 8:52 AM HOUSE CLEANER SUPERVISOR Aftercare Total Knee Arthroplasty COMPREHENSIVE METABOLIC PANEL, [...] HCV PCR, S Routine 03/17/2022 10:17 AM HOUSE CLEANER SUPERVISOR Screening Test Laboratory EXT MAMMOGRAM ENTER_EDIT RAD - Routine (most inpatients and all outpatients) 03/09/2022 1:56 PM HOUSE CLEANER SUPERVISOR COLONOSCOPY Routine 11/26/2019 3:23 PM CDT Screening Cancer Colon from Last 3 Months or Most Recently Relevant to Health Maintenance Results * CT Ankle Left without IV Contrast (02/07/2024 1:25 PM HOUSE CLEANER SUPERVISOR) Anatomical Region Laterality Modality Ankle, Lower Extremity, Musc uloskeletal RST LOS, Musculoskeletal ARZ LOS, Muskuloskeletal FLA LOS Left Computed Tomography, Compute d Tomography Impressions 02/07/2024 2:15 PM HOUSE CLEANER SUPERVISOR Marked demineralization throughout the ankle and visualized [...] calcifications. Remainder negative. Narrative 02/07/2024 2:15 PM HOUSE CLEANER SUPERVISOR EXAM: CT ANKLE LEFT WITHOUT IV CONTRAST [...] P.A.-C., M.S. IMG CT PROCEDURES Final Result * Wound Care Incision Anterior;Left Knee (02/07/2024 11:00 AM HOUSE CLEANER SUPERVISOR) Narrative [facility] - 02/07/2024 11:00 AM HOUSE CLEANER SUPERVISOR Jolynn Cole P.A.-C., M.S. 02/07/2024 2:27 PM Wound Care Incision Anterior;Left Knee Performed by: Jolynn Cole P.A.-C., M.S. Authorized by: Jolynn Cole P.A.-C., M.S. PROCEDURE [...] to injury: normal Complications: no immediate complications us Jolynn Cole P.A.-C., M.S. PROCEDURE/MINOR S URGICAL ORDERABLES Final Result Performing Organization Address City/[facility]/ZIP Co de Phone Number [facility] NA * (ABNORMAL) CBC with Differential, Blood (02/02/2024 8:50 AM HOUSE CLEANER SUPERVISOR) Only the most recent of3 resultswithin the time period is included. EXT Leukocytes 5.01 4.50 - 11.00 K/uL [facility] EXT Hemoglobin 11.1(L) 12.0 - 16.0 gm/dL [facility] EXT Platelet Count 310 140 - 440 K/uL [facility] EXT Neutrophils 2.82 1.7 - 7.0 K/uL [facility] EXT Eosinophils 0.35 0.00 - 0.50 K/uL [facility] 02/02/2024 8:50 AM HOUSE CLEANER SUPERVISOR Narrative [facility] 02/02/2024 2:34 PM HOUSE CLEANER SUPERVISOR Source result document attached to Order Number [id number] ([id number]) dated 02/02/2024. External results verified in Extract by Liberty Gonzales on 02/02/2024 at 02:31 PM. us Ordering Provider External M.D. LAB BLOOD ADD-ON Final Result Performing Organization Address City/[facility]/ZIP Co de Phone Number [facility] [address] [place] [address] * ALT (Alanine Aminotransferase) (02/02/2024 8:50 AM HOUSE CLEANER SUPERVISOR) Only the most recent of2 resultswithin the time period is included. EXT ALT 13 4 - 35 U/L [facility] 02/02/2024 8:50 AM HOUSE CLEANER SUPERVISOR Narrative [employer] [facility] - 02/02/2024 2:34 PM HOUSE CLEANER SUPERVISOR Source result document attached to Order Number [id number] ([id number]) dated 02/02/2024. External results verified in Extract by Liberty Gonzales on 02/02/2024 at 02:31 PM. us Ordering Provider External M.Aimee LAB BLOOD ADD-ON Final Result Performing Organization Address City/[facility]/ZIP Co de Phone Number [facility] [address] [phone] * Alkaline Phosphatase (02/02/2024 8:50 AM HOUSE CLEANER SUPERVISOR) Only the most recent of3 resultswithin the time period is included. EXT Alkaline Phosphatase 144 40 - 150 U/L [facility] 02/02/2024 8:50 AM HOUSE CLEANER SUPERVISOR Narrative [employer] [facility] - 02/02/2024 2:34 PM HOUSE CLEANER SUPERVISOR Source result document attached to Order Number [id number] ([id number]) dated 02/02/2024. External results verified in Extract by Liberty Gonzales on 02/02/2024 at 02:31 PM. us Ordering Provider External M.Aimee LAB BLOOD ADD-ON Final Result Performing Organization Address City/[facility]/ZIP Co de Phone Number [facility] [address] [phone] * Creatinine with Estimated GFR (02/02/2024 8:50 AM HOUSE CLEANER SUPERVISOR) Only the most recent of2 resultswithin the time period is included. EXT Creatinine 0.7 0.5 - 1.5 mg/dL [facility] 02/02/2024 8:50 AM HOUSE CLEANER SUPERVISOR Narrative [facility] - 02/02/2024 2:34 PM HOUSE CLEANER SUPERVISOR External results verified in Extract by Liberty Gonzales on 02/02/2024 at 02:31 PM. us Ordering Provider Lexi Hennsesy LAB BLOOD ADD-ON Final Result [facility] [address] [place] [address] * Perform central crawler dragline operator: Site care (01/19/2024 11:00 AM HOUSE CLEANER SUPERVISOR) Narrative Jarocho Sim R.N. - 01/19/2024 11:00 AM HOUSE CLEANER SUPERVISOR Jarocho Sim R.N. 01/19/2024 11:02 AM Perform central crawler dragline operator: Site care Performed by: Jarocho Sim R.N. Authorized by: Brock Milton M.D. us Brock Milton M.D. PROCEDURE/MINOR SURGICAL ORD ERABLES Final Result * Place peripherally inserted central catheter (PICC) (01/18/2024 8:30 PM HOUSE CLEANER SUPERVISOR) Narrative [facility] - 01/18/2024 8:30 PM HOUSE CLEANER SUPERVISOR Can Crockett R.N. 01/18/2024 10:[address] [...] to release the adhesive from the skin. [email or web address] Kashif Dailey M.D. PROCEDURE/MINOR SURGICAL ORDERABLES Final Result [facility] NA * (ABNORMAL) Hepatic Function Panel (01/18/2024 6:55 AM HOUSE CLEANER SUPERVISOR) Only the most recent of2 resultswithin the time period is included. Bilirubin, Total, S 0.4 0.0 - 1.2 mg/dL 01/18/2024 8:12 AM HOUSE CLEANER SUPERVISOR DTL Bilirubin, Direct, S <0.2 0.0 - 0.3 mg/dL 01/18/2024 8:12 AM HOUSE CLEANER SUPERVISOR DTL Aspartate Aminotransferase (AST), S 32 8 - 43 U/L 01/18/2024 8:12 AM HOUSE CLEANER SUPERVISOR DTL Alanine Aminotransferase (ALT), S 14 7 - 45 U/L 01/18/2024 8:12 AM HOUSE CLEANER SUPERVISOR DTL Alkaline Phosphatase, S 122(H) 35 - 104 U/L 01/18/2024 8:12 AM HOUSE CLEANER SUPERVISOR DTL Albumin, S 3.6 3.5 - 5.0 g/dL 01/18/2024 8:12 AM HOUSE CLEANER SUPERVISOR DTL Protein, Total, S 6.1(L) 6.3 - 7.9 g/dL 01/18/2024 8:12 AM HOUSE CLEANER SUPERVISOR DTL Blood (Blood, Venous) 01/18/2024 6:55 AM HOUSE CLEANER SUPERVISOR 01/18/2024 7:48 AM HOUSE CLEANER SUPERVISOR Margareth Minor M.D. LAB BLOOD ADD-ON Final Re sult Performing Organization Address City/[facility]/ZIP Co de Phone Number [facility] [address] [place] [address], [facility] [address] [place] [address] * (ABNORMAL) Sedimentation Rate (01/18/2024 6:55 AM HOUSE CLEANER SUPERVISOR) Only the most recent of2 resultswithin the time period is included. Sedimentation Rate, B 55(H) 3 - 28 mm/h 01/18/2024 8:26 AM HOUSE CLEANER SUPERVISOR DTL Blood (Blood, Venous) 01/18/2024 6:55 AM HOUSE CLEANER SUPERVISOR 01/18/2024 7:27 AM HOUSE CLEANER SUPERVISOR Margareth Minor M.D. LAB BLOOD ADD-ON Final Re sult Performing Organization Address City/[facility]/ZIP Co de Phone Number [facility] [address] [place], [place] [address] [address] [place] [address] * (ABNORMAL) CRP (C-Reactive Protein) (01/18/2024 6:55 AM HOUSE CLEANER SUPERVISOR) Only the most recent of2 resultswithin the time period is included. [facility] C-Reactive Protein (CRP), S 125.4(H) <5.0 mg/L 01/18/2024 8:12 AM HOUSE CLEANER SUPERVISOR DTL Blood (Blood, Venous) 01/18/2024 6:55 AM HOUSE CLEANER SUPERVISOR 01/18/2024 7:48 AM HOUSE CLEANER SUPERVISOR Margareth Minor M.D. LAB BLOOD ADD-ON Final Re sult [address] [address], [place] [address] * (ABNORMAL) CBC without Differential (01/17/2024 5:09 AM HOUSE CLEANER SUPERVISOR) [facility] Hemoglobin 9.5(L) 11.6 - 15.0 g/dL 01/17/2024 6:26 AM HOUSE CLEANER SUPERVISOR DTL Hematocrit 30.6(L) 35.5 - 44.9 % 01/17/2024 6:26 AM HOUSE CLEANER SUPERVISOR DTL Erythrocytes 3.42(L) 3.92 - 5.13 x10(12)/L 01/17/2024 6:26 AM HOUSE CLEANER SUPERVISOR DTL MCV 89.5 78.2 - 97.9 fL 01/17/2024 6:26 AM HOUSE CLEANER SUPERVISOR DTL RBC Distrib Width 14.8 12.2 - 16.1 % 01/17/2024 6:26 AM HOUSE CLEANER SUPERVISOR DTL Platelet Count 250 157 - 371 x10(9)/L 01/17/2024 6:26 AM HOUSE CLEANER SUPERVISOR DTL Leukocytes 7.9 3.4 - 9.6 x10(9)/L 01/17/2024 6:26 AM HOUSE CLEANER SUPERVISOR DTL Blood (Blood, Venous) 01/17/2024 5:09 AM HOUSE CLEANER SUPERVISOR 01/17/2024 6:19 AM HOUSE CLEANER SUPERVISOR Jolynn Cole P.A.-C. M.S. LAB BLOOD ADD-ON Final Result [facility] [address] [place] [address], [facility] DTL [facility] [address] [place] [address] * (ABNORMAL) Basic Metabolic Panel (01/17/2024 5:09 AM HOUSE CLEANER SUPERVISOR) [facility] Potassium, S 3.9 3.6 - 5.2 mmol/L 01/17/2024 6:50 AM HOUSE CLEANER SUPERVISOR DTL Sodium, S 140 135 - 145 mmol/L 01/17/2024 6:50 AM HOUSE CLEANER SUPERVISOR DTL Chloride, S 103 98 - 107 mmol/L 01/17/2024 6:50 AM HOUSE CLEANER SUPERVISOR DTL Bicarbonate, S 26 22 - 29 mmol/L 01/17/2024 6:50 AM HOUSE CLEANER SUPERVISOR DTL Anion Gap 11 7 - 15 01/17/2024 6:50 AM HOUSE CLEANER SUPERVISOR DTL BUN (Blood Urea Nitrogen), S 14 6 - 21 mg/dL 01/17/2024 6:50 AM HOUSE CLEANER SUPERVISOR DTL Creatinine 0.71 0.59 - 1.04 mg/dL 01/17/2024 6:50 AM HOUSE CLEANER SUPERVISOR DTL Estimated GFR (eGFR) 90 >=60 mL/min/BSA 01/17/2024 6:50 AM HOUSE CLEANER SUPERVISOR DTL Comment: Estimated GFR calculated using the 2020 CKD_EPI creatinine equation. Calcium, Total, S 8.4(L) 8.8 - 10.2 mg/dL 01/17/2024 6:50 AM HOUSE CLEANER SUPERVISOR DTL Glucose, S 145(H) 70 - 140 mg/dL 01/17/2024 6:50 AM HOUSE CLEANER SUPERVISOR DTL Blood (Blood, Venous) 01/17/2024 5:09 AM HOUSE CLEANER SUPERVISOR 01/17/2024 6:31 AM HOUSE CLEANER SUPERVISOR Jolynn Cole P.A.-C., M.S. LAB BLOOD ADD-ON Final Result [facility] [address] [place] [address], [facility] DTL [facility] [address] [place] [address] * DX Knee Left 2 Views (01/16/2024 1:15 PM HOUSE CLEANER SUPERVISOR) Anatomical Region Laterality Modality Lower Extremity, Knee, Muscu loskeletal RST LOS, Musculoskeletal ARZ LOS, Muskuloskeletal FLA LOS Left Digit al Radiography Impressions 01/16/2024 1:41 PM HOUSE CLEANER SUPERVISOR Postsurgical changes of left TKA with patellar resurfacing and longstem tibial component. No evidence of hardware failure. Healing fracture of the proximal tibia and fibula. Otherwise negative for postoperative purposes. Narrative 01/16/2024 1:41 PM HOUSE CLEANER SUPERVISOR EXAM: DX KNEE LEFT 2 VIEWS Procedure Note Dora Michel M.D. - 01/16/2024 EXAM: DX KNEE LEFT 2 VIEWS IMPRESSION: Postsurgical changes of left TKA with patellar resurfacing and longstemtibial component. No evidence of hardware failure. Healing fracture of theproximal tibia and fibula. Otherwise negative for postoperativepurposes. us Toney Anderson M.D. [facility] DIAGNOSTIC IMAGING PRO CEDURES Final Result * (ABNORMAL) Bacteria Culture, Aerobe / Anaerobe + Susc (01/16/2024 11:40 AM HOUSE CLEANER SUPERVISOR) Only the most recent of3 resultswithin the time period is included. Bacteria Cult, Aerobe/Anaerobe+S usc STAPHYLOCOCCUS AUREUS Growth after 1 day (A) 01/20/2024 1:53 PM HOUSE CLEANER SUPERVISOR DTL Comment: mecA not detected Methicillin (oxacillin)-susceptible Staphylococcus aureus. Knee, Left 01/16/2024 11:4 0 AM HOUSE CLEANER SUPERVISOR 01/16/2024 3:19 PM HOUSE CLEANER SUPERVISOR Comment:Specimen Source Site : Tissue #2 Narrative [facility] - 01/20/2024 1:53 PM HOUSE CLEANER SUPERVISOR Bacterial Culture: Placed in Bactec aerobic and [...] SUSCEPTIBI LITY, BP (MCG/ML) 0.25 mcg/mL: Susceptible Brock Milton M.D. LAB MICROBIOLOGY - GENERAL O RDERABLES Final Result [facility] [address] [place] [address], [facility] [address] [place] [address] * Fungal Smear (01/16/2024 11:40 AM HOUSE CLEANER SUPERVISOR) Only the most recent of3 resultswithin the time period is included. Fungal Smear Negative. 01/16/2024 9:04 PM HOUSE CLEANER SUPERVISOR DTL Tissue (Knee, Left) 01/16/2024 11:40 AM HOUSE CLEANER SUPERVISOR Narrative [facility] - 01/16/2024 9:04 PM HOUSE CLEANER SUPERVISOR Bacterial Culture: Placed in Bactec aerobic and Bactec anaerobic bottles Brock Milton M.D. LAB MICROBIOLOGY - GENERAL O RDERABLES Final Result Performing Organization Address City/[facility] Co de Phone Number [facility] [address] [place] [address] * Acid Fast Smear for Mycobacterium (01/16/2024 11:40 AM HOUSE CLEANER SUPERVISOR) Only the most recent of3 resultswithin the time period is included. Acid Fast Smear For Mycobacterium Negative. 01/16/2024 10:10 PM HOUSE CLEANER SUPERVISOR DTL Tissue (Knee, Left) 01/16/2024 11:40 AM HOUSE CLEANER SUPERVISOR Narrative [facility] - 01/16/2024 10:10 PM HOUSE CLEANER SUPERVISOR Bacterial Culture: Placed in Bactec aerobic and Bactec anaerobic bottles Brock Milton M.D. LAB MICROBIOLOGY - GENERAL O RDERABLES Final Result Performing Organization Address [facility] Co de Phone Number [facility] [address] [place], [place] [id number] [place] [address] 200 [place] [address] * (ABNORMAL) Gram Stain (01/16/2024 11:40 AM HOUSE CLEANER SUPERVISOR) Only the most recent of3 resultswithin the time period is included. Gram Stain White blood cells, Many(A) 01/16/2024 6:50 PM HOUSE CLEANER SUPERVISOR DTL Gram Stain GRAM POSITIVE COCCI Rare (A) 01/16/2024 6:50 PM HOUSE CLEANER SUPERVISOR DTL Comment:Semi-Urgent Result. Semi-Urgent This is a semi-urgent result(CASTILLO) [facility] Tissue (Knee, Left) 01/16/2024 11:40 AM HOUSE CLEANER SUPERVISOR Narrative [facility] - 01/16/2024 6:50 PM HOUSE CLEANER SUPERVISOR Bacterial Culture: Placed in Bactec aerobic and Bactec anaerobic bottles Brock Milton M.D. LAB MICROBIOLOGY - GENERAL O RDERABLES Final Result [facility] [address] [place] [address], [facility] [address] [place] [address] * LDA ANE EPIDURAL CATHETER, OR INJ INF/BOLUS LUMB/SACRAL DX WO IMG (01/16/2024 11:10 AM HOUSE CLEANER SUPERVISOR) Narrative Satish Garcia III, M.D. - 01/16/2024 11:10 AM HOUSE CLEANER SUPERVISOR Dario Prajapati M.D. 01/16/2024 11:10 AM Regional [...] completed successfully: successful procedure Notable Events: none Satish Garcia III, M.D. PROCEDURE/MINOR SURGICA L ORDERABLES Final Result * LDA ANE ENDOTRACHEAL AIRWAY (01/16/2024 11:08 AM HOUSE CLEANER SUPERVISOR) Narrative Satish Garcia III, M.D. - 01/16/2024 11:08 AM HOUSE CLEANER SUPERVISOR Dario Prajapati M.D. 01/16/2024 11:09 AM Airway [...] anesthesia POST PROCEDURE DETAILS: Procedure outcome: successful Satish Garcia III, M.D. ANESTHESIA ORDERABLES F inal Result * Leg-Orthopedic Surgery Image Exam (01/16/2024 12:00 AM HOUSE CLEANER SUPERVISOR) Narrative [facility] - 01/16/2024 4:46 PM HOUSE CLEANER SUPERVISOR This order has been created and auto-finalized to support the import of images acquired without order. The clinical documentation to support these images can be found on the encounter that produced images. Provider Not In System IMG NON RAD IMAGING PROCE DURES Final Result [facility] NA * DX Knee Left Standing 3 Views (01/13/2024 8:52 AM HOUSE CLEANER SUPERVISOR) Only the most recent of2 resultswithin the time period is included. Anatomical Region Laterality Modality Lower Extremity, Knee, Muscu loskeletal RST LOS, Musculoskeletal ARZ LOS, Muskuloskeletal FLA LOS Left Digit al Radiography Impressions 01/13/2024 8:59 AM HOUSE CLEANER SUPERVISOR Left TKA with patellar resurfacing and long stem tibial component. No radiographic evidence of loosening. Knee joint effusion and periarticular soft tissue swelling. Healing fracture proximal tibia with significant progression of fracture healing since 11/29/2023. Healing fracture involving head and neck of the fibula. Pin tracks in the tibia. Osteopenia. Narrative 01/13/2024 8:59 AM HOUSE CLEANER SUPERVISOR EXAM: DX KNEE LEFT STANDING 3 VIEWS [...] P.A.-C. LAB BLOOD ADD-ON Final Res ult [facility] [address] [place] [address], [facility] OWAT [facility] [place] [address] [place] [address] * Lipid Panel (11/25/2023 11:55 AM CDT) [...] 11:55 AM CDT 11/25/2023 12:47 PM CDT us Lilli Chacon M.D. LAB BLOOD ADD-ON Final Res ult [facility] [address] [place] [address], [facility] OWAT [facility] [place] [address] [place] [address] * S-TSH (Thyroid-Stimulating Hormone - Sensitive) (11/25/2023 11:55 AM CDT) TSH, Sensitive 4.0 0.3 - 4.2 mIU/L 11/25/2023 1:37 PM CDT OWAT Blood (Blood, Venous) 11/25/2023 11:55 AM CDT 11/25/2023 12:47 PM CDT Keiry Corral.A.-C. LAB BLOOD ADD-ON Final Res ult Performing Organization Address [facility] Co de Phone Number [facility] [address] [place] [address], [place] OW[place] [facility] [place] [address] [place] [address] * (ABNORMAL) Hemoglobin A1c (11/25/2023 11:55 AM CDT) Hemoglobin A1c, B 5.7(H) 4.2 - 5.6 % 11/25/2023 1:48 PM CDT OW Comment: Hemoglobin A1c values of 5.7-6.4 percent indicate an increased risk for developing diabetes mellitus. In diabetic patients, HbA1c goals should be discussed with healthcare provider. Blood (Blood, Venous) 11/25/2023 11:55 AM CDT 11/25/2023 12:48 PM CDT Keiry Corral.A.-C. LAB BLOOD ADD-ON Final Res ult Performing Organization Address [facility] Co de Phone Number [facility] [address] [place] [address], [facility] [facility] [place] [address] [place] [address] * HCV Ab Scrn w/Reflex to HCV PCR, Serum (03/17/2022 10:17 AM HOUSE CLEANER SUPERVISOR) HCV Ab Screen, S Negative Negative 03/18/2022 8:10 AM HOUSE CLEANER SUPERVISOR [facility] Comment:Xvzkdc-vp-[id number] rat io is <1.00. Blood (Blood, Venous) 03/17/2022 10:17 AM HOUSE CLEANER SUPERVISOR 03/18/2022 7:06 AM HOUSE CLEANER SUPERVISOR Lilli Chacon M.D. LAB MICROBIOLOGY - BLOOD O RDERABLES Final Result [facility] [address] [place] [address] [facility] [address] [place] [address] * EXT Mammogram (03/09/2022 1:56 PM HOUSE CLEANER SUPERVISOR) EXT Mammogram Normal - See Scanned Report for Details Normal - See Scanned Report for Details, HIMS - Report Received and Scanned Comment:See care everywhere for results Anatomical Region Laterality Modality Breast, Breast Imaging ARZ L OS, Breast Imaging FLA LOS, Breast Imaging RST LOS N/A Mammography Impressions 03/09/2022 1:56 PM HOUSE CLEANER SUPERVISOR Exam End: 03/09/22 13:56 Last Resulted: 03/09/22 14:04 Received From: [employer] [facility] us Historical Provider IMG BI PROCEDURES Final Resu lt from Last 3 Months or Most Recently Relevant to Health Maintenance Insurance [facility] [place] [address] MEDICARE Advance Directives For more information, please contact: [phone] * Full Code (Latest Code Status on [...] Answer Comments Full Code: Discussed Care Teams Bench Assembler Electrical Relationship Specialty Start Date End Date Treasure Baires M.D. [address] [place] [phone] PCP - General Family Medicine 09/08/23
--- OUTSIDE RECORDS SUMMARY | 2024-02-09 07:08 | XMS_ITS ---
Author Organization [facility] Address [address] [place] [address] Care Team Providers Care Prototype Deicer Assembler Name Role Phone Unavailable Unavailable Unavailable Surgery Details Not on file Complications Check Surgery Details section. Procedure Estimated Blood Loss Check Surgery Details section. Procedure Findings Check Surgery Details section. Procedure Specimens Taken Check Surgery Details section.
--- OUTSIDE RECORDS SUMMARY | 2024-02-09 07:08 | XMS_ITS | Encounter Summary ---
Author Organization [facility] Address [address] [place] [address] Care Team Providers Care Computer Programming Supervisor Name Role Phone Treasure Baires M.D. Primary Care Provider [phone] Encounter Details Date Type Department Care Team (Late st Contact Info) Description 01/25/2024 Orders Only Department of Orthopedic Surgery in [place], [place] [address] [place] [phone] Jolynn Cole P.A.-C., M.S. [address] [place] [phone] Social History Tobacco Use Types Packs/Day Years Used Date Smoking Tobacco: Former Cigarettes 1 972 - 2002 Smokeless Tobacco: Never Alcohol Use Standard Drinks/Week Comments Yes 2 (1 standard drink = 0.6 oz pur e alcohol) [facility] Utilities Answer Date Recorded In the past [...] often do you attend chur ch or scientology services? 1 to 4 times per year 09/13/2021 Do you belong to any clubs o r organizations such as islam groups, unions, fraternal or athletic groups, or [...] Answer Date Recorded PHQ-2 Score 3 12/05/2023 [facility] - Occupational Stress Questionnaire Answer [...] your living situation today? I have a [facility] place to live 01/17/2024 Education Answer Date Recorded What is the highest level of school you have completed or the highest degree you have received? Doctorate 09/05/2018 Comments No Sex and Gender Information Value Date Recorded Sex Assigned at Female 12/19/2016 7:29 PM MARKETING FORECASTER Legal Sex Female 7:58 AM MARKETING FORECASTER Gender Identity Female 12/19/2016 7:29 PM MARKETING FORECASTER Sexual Orientation Lesbian or Turcios 03/12/2020 12 :23 PM MARKETING FORECASTER documented as of this encounter Plan of Treatment Upcoming Encounters Date Type Department Care Team (Late st Contact Info) Description 03/01/2024 10:00 AM MARKETING FORECASTER Comprehensive Visit Section of Infectious Diseases in [address] [phone] Silvana Marrufo M.D. [address] [place] [phone] 03/01/2024 10:40 AM MARKETING FORECASTER Lab Department of Laboratory Medicine and Pathology, [facility], in [place], [place] [address] [place] [phone] Jolynn Cole P.A.-C., M.S. [address] [place] [phone] 03/01/2024 11:15 AM MARKETING FORECASTER Appointment Department of Radiology, [facility] in [place], [place] [address] [place] [phone] Jolynn Cole P.A.-C., M.S. [address] [place] [phone] 03/01/2024 12:00 PM MARKETING FORECASTER Office Visit Department of Orthopedic Surgery in [place], [place] [address] [place] [phone] Jolynn Cole P.A.-C., M.S. [address] [place] [phone] 03/13/2024 3:20 PM MARKETING FORECASTER Comprehensive Visit Department of Family Medicine, [facility], in [place], [place] [address] [place] [phone] Treasure Baires M.D. [address] [place] [phone] 03/14/2024 1:30 PM MARKETING FORECASTER Virtual Visit Section of Infectious Diseases in [place], [place] [address] [place] [phone] Silvana Marrufo M.D. [address] [place] [address] [place] [phone] documented as of this encounter Visit Diagnoses Not on filedocumented in this encounter Additional Health Concerns Assessment Noted Time PHQ-9 Depression Total Score: 7 12/05/19 24 11:33 PM CDT documented as of this encounter Care Teams Computer Programming Supervisor Relationship Specialty Start Date End Date Treasure Baires M.D. [address] [place] [phone] PCP - General Family Medicine 09/08/23 documented as of this encounter
--- OUTSIDE RECORDS SUMMARY | 2024-02-09 07:08 | XMS_ITS | Encounter Summary ---
Author Organization [facility] Address [address] [place] [address] Care Team Providers Care Zmt Operator Name Role Phone Treasure Baires M.D. Primary Care Provider +1- [phone] Reason for Referral * Outpatient (Routine) - Closed Specialty Diagnoses / Procedures Referred By Cortes mak Referred To Contact Orthopedic Surgery Jolynn Cole P.A.-C., M.S. [address] [place] [phone] Phone: tel: fax: [facility] Referral ID Status Reason Start Date Expiration Date Visits Re quested Visits Authorized [id number] Closed 01/19/2024 07/20/2025 1 1 Scheduling Instructions Jolynn 11:30 IRONER Encounter Details Date Type Department Care Team (Late st Contact Info) Description 01/19/2024 Orders Only Department of Orthopedic Surgery in [place], [place] [address] [place] [phone] Jolynn Cole P.A.-C., M.S. [address] [place] [phone] Social History Tobacco Use Types Packs/Day Years Used Date Smoking Tobacco: Former Cigarettes 2002 Smokeless Tobacco: Never Alcohol Use Standard Drinks/Week Comments Yes 2 (1 standard drink = 0.6 oz pur e alcohol) [facility] Utilities Answer Date Recorded In the past 12 months has e [employer], gas, oil, or water company threatened to [...] week 09/13/2021 How often do you attend [facility] or orthodoxy services? 1 to 4 times [...] Answer Date Recorded PHQ-2 Score 3 12/05/2023 [facility] [place] [facility] - Occupational Stress Questionnaire Answer Date [...] living situation today? I have a [facility] place to live 01/17/2024 Education Answer Date Recorded What is the highest level of school you have completed or the highest degree you have received? Doctorate 09/05/2018 Comments No Sex and Gender Information Value Date Recorded Sex Assigned at Female 12/19/2016 7:29 PM SHOE IRONER Legal Sex Female 7:58 AM SHOE IRONER Gender Identity Female 12/19/2016 7:29 PM SHOE IRONER Sexual Orientation Lesbian or Turcios 03/12/2020 12 :23 PM SHOE IRONER documented as of this encounter Plan of Treatment Upcoming Encounters Date Type Department Care Team (Late st Contact Info) Description 03/01/2024 10:00 AM SHOE IRONER Comprehensive Visit Section of Infectious Diseases in [address] [phone] Silvana Marrufo M.D. [address] [place] [phone] 03/01/2024 10:40 AM SHOE IRONER Lab Department of Laboratory Medicine and Pathology, [facility] in [address] [phone] Jolynn Cole P.A.-C., M.S. [address] [place] [phone] 03/01/2024 11:15 AM SHOE IRONER Appointment Department of Radiology, [facility] in [address] [phone] oJlynn Cole P.A.-C., M.S. [address] [place] [phone] 03/01/2024 12:00 PM SHOE IRONER Office Visit Department of Orthopedic Surgery in [address] [phone] Jolynn Cole P.A.-C., M.S. [address] [place] [phone] 03/13/2024 3:20 PM SHOE IRONER Comprehensive Visit Department of Family Medicine, [facility], in [place], [place] [address] [place] [phone] Treasure Baires M.D. [address], [place] [phone] 03/14/2024 1:30 PM SHOE IRONER Virtual Visit Section of Infectious Diseases in [place], [place] [address] [place] [phone] Silvana Marrufo M.D. [address] [place] [address] Scheduled Referrals Name Type Priority Associated Diagnoses Order Schedule Orthopedic Surgery office visit (clinic) Outpatient Referral Routine Expected: 02/07/2024, Expires: 04/18/2025 documented as of this encounter Visit Diagnoses Not on filedocumented in this encounter Additional Health Concerns Assessment Noted Time PHQ-9 Depression Total Score: 7 12/05/19 24 11:33 PM CDT documented as of this encounter Care Teams Zmt Operator Relationship Specialty Start Date End Date Treasure Baires M.D. [address], [place] [phone] PCP - General Family Medicine 09/08/23 documented as of this encounter
--- OUTSIDE RECORDS SUMMARY | 2024-02-09 07:08 | XMS_ITS | Encounter Summary ---
Author Organization [facility] Address [address] [place] [address] Care Team Providers Care Construction Carpenter Name Role Phone Treasure Baires M.D. Primary Care Provider +1 [phone] Encounter Details Date Type Department Care Team (Late st Contact Info) Description 01/26/2024 Orders Only Section of Infectious Diseases in [place], [place] [address] [place] [phone] External, Ordering ProviderGerhard Social History Tobacco Use Types Packs/Day Years Used Date Smoking Tobacco: Former Cigarettes 2002 Smokeless Tobacco: Never Alcohol Use Standard Drinks/Week Comments Yes 2 (1 standard drink = 0.6 oz pur e alcohol) [facility] Utilities Answer Date Recorded In [...] any clubs o r organizations such as yazdanism groups, unions, fraternal or athletic groups, or [...] Score 3 12/05/2023 [facility] - Occupational Stress Questionnaire [...] your living situation today? I have a [facility] place to live 01/17/2024 Education Answer Date Recorded What is the highest level of school you have completed or the highest degree you have received? Doctorate 09/05/2018 Comments No Sex and Gender Information Value Date Recorded Sex Assigned at Female 12/19/2016 7:29 PM POULTRY PACKER Legal Sex Female 7:58 AM POULTRY PACKER Gender Identity Female 12/19/2016 7:29 PM POULTRY PACKER Sexual Orientation Lesbian or Turcios 03/12/2020 12 :23 PM POULTRY PACKER documented as of this encounter Plan of Treatment Upcoming Encounters Date Type Department Care Team (Late st Contact Info) Description 03/01/2024 10:00 AM POULTRY PACKER Comprehensive Visit Section of Infectious Diseases in [place], [place] [address] [place] [phone] Silvana Marrufo M.D. [address] [place] [phone] 03/01/2024 10:40 AM POULTRY PACKER Lab Department of Laboratory Medicine and Pathology, [facility], in [place], [place] [address] [place] [phone] Jolynn Cole P.A.-C., M.S. [address] [place] [phone] 03/01/2024 11:15 AM POULTRY PACKER [facility] [place], [place] [address] [place] [phone] Jolynn Cole P.A.-C., M.S. [address] [place] [phone] 03/01/2024 12:00 PM POULTRY PACKER Office Visit Department of Orthopedic Surgery in [place], [place] [address] [place] [phone] Jolynn Cole P.A.-C., M.S. [address] [place] [phone] 03/13/2024 3:20 PM POULTRY PACKER Comprehensive Visit Department of Family Medicine, [facility], in [place], [place] [address] [place] [phone] Treasure Baires M.D. [address] [place] [phone] 03/14/2024 1:30 PM POULTRY PACKER Virtual Visit Section of Infectious Diseases in [place], [place] [address] [place] [phone] Silvana Marrufo M.D. [address] [place] [phone] documented as of this encounter Procedures Procedure Name Priority Date/Time Associated Diagnosis Comments CBC WITH DIFFERENTIAL, B Routine 024 10:24 AM POULTRY PACKER ALANINE AMINOTRANSFERASE (ALT), S/P Routine 01/26/2024 10:24 AM POULTRY PACKER ALKALINE PHOSPHATASE, S/P Routine 01/26/2024 10:24 AM POULTRY PACKER CREATININE WITH EGFR, S/P Routine 01/26/2024 10:24 AM POULTRY PACKER documented in this encounter Results * (ABNORMAL) Alkaline Phosphatase (01/26/2024 10:24 AM POULTRY PACKER) EXT Alkaline Phosphatase 151(H) 40 - 150 U/L SCANNED REPORT 01/26/2024 10:2 4 AM POULTRY PACKER Narrative [facility] - 01/27/2024 10:48 AM POULTRY PACKER Source result document attached to Order Number [id number] ([id number]) dated 01/26/2024. External results verified in Extract by Liberty Gonzales on 01/27/2024 at 10:46 AM. us Ordering Provider External Gerhard LAB BLOOD ADD-ON Final Result Performing Organization Address [facility] Co de Phone Number [facility] NA SCANNED REPORT * ALT (Alanine Aminotransferase) (01/26/2024 10:24 AM POULTRY PACKER) EXT ALT 17 4 - 35 U/L SCANNED REPORT 01/26/2024 10:2 4 AM POULTRY PACKER Narrative [facility] LOCATION [facility] - 01/27/2024 10:48 AM POULTRY PACKER Source result document attached to Order Number [id number] ([id number]) dated 01/26/2024. External results verified in Extract by Liberty Gonzales on 01/27/2024 at 10:46 AM. us Ordering Provider Lexi Hennessy LAB BLOOD ADD-ON Final Result Performing Organization Address City/[facility]/ZIP Co de Phone Number [facility] NA SCANNED REPORT * Creatinine with Estimated GFR (01/26/2024 10:24 AM POULTRY PACKER) Pathologist [facility] EXT Creatinine 0.7 0.5 - 1.5 ML SCANNED REPORT 01/26/2024 10:2 4 AM POULTRY PACKER Narrative [facility] - 01/27/2024 10:48 AM POULTRY PACKER Source result document attached to Order Number [id number] ([id number]) dated 01/26/2024. External results verified in Extract by Liberty Gonzales on 01/27/2024 at 10:46 AM. us Ordering Provider External Gerhard LAB BLOOD ADD-ON Final Result Performing Organization Address [facility] Co de Phone Number [facility] NA SCANNED REPORT * (ABNORMAL) CBC with Differential, Blood (01/26/2024 10:24 AM POULTRY PACKER) Pathologist [facility] EXT Leukocytes 5.95 4.50 - 11.00 K/uL SCANNED REPORT EXT Platelet Count 354 140 - 440 K/uL SCANNED REPORT EXT Neutrophils 3.91 1.7 - 7.0 K/uL SCANNED REPORT EXT Eosinophils 0.24 0.00 - 0.50 K/uL SCANNED REPORT EXT Hemoglobin 10.8(L) 12.0 - 16.0 gm/dL SCANNED REPORT 01/26/2024 10:2 4 AM POULTRY PACKER Narrative SCANNED REPORT - 01/27/2024 10:48 AM POULTRY PACKER External results verified in Extract by Liberty Gonzales on 01/27/2024 at 10:46 AM. us Ordering Provider External Gerhard LAB BLOOD ADD-ON Final Result SCANNED REPORT documented in this encounter Visit Diagnoses Not on filedocumented in this encounter Additional Health Concerns Assessment Noted Time PHQ-9 Depression Total Score: 7 12/05/19 24 11:33 PM CDT documented as of this encounter Care Teams Construction Carpenter Relationship Specialty Start Date End Date Treasure Baires M.D. [address] [facility] [place] [phone] PCP - General Family Medicine 09/08/23 documented as of this encounter
--- OUTSIDE RECORDS SUMMARY | 2024-02-09 07:08 | XMS_ITS | Encounter Summary ---
Author Organization [facility] Address [address] [place] [address] Care Team Providers Care Divider Operator Name Role Phone Treasure Baires M.D. Primary Care Provider +1- [phone] Reason for Referral * MRI/CAT/PET Scan (Routine) - Closed Specialty Diagnoses / Procedures Referred By Cortes mak Referred To Contact Radiology Diagnoses Pain Ankle Left Procedures CT Ankle Left without IV Contrast Jolynn Cole P.A.-C., M.S. [address] [place] [address] Phone: tel: fax: [facility] Referral ID Status Reason Start Date Expiration Date Visits Re quested Visits Authorized [id number] Closed 02/06/2024 02/05/2025 1 1 SSEMBLY ASSEMBLER Encounter Details Date Type Department Care Team (Late st Contact Info) Description 02/06/2024 Orders Only Department of Orthopedic Surgery in [place], [place] [address] [place] [phone] Jolynn Cole P.A.-C., M.S. [address] [place] [address] Pain Ankle Left (Primary Dx) Social History Tobacco Use Types Packs/Day Years Used Date Smoking Tobacco: Former Cigarettes 2002 Smokeless Tobacco: Never Alcohol Use Standard Drinks/Week Comments Yes 2 (1 standard drink = 0.6 oz pur e alcohol) [facility] Utilities Answer Date Recorded In the past 12 months has e [employer], gas, oil, or water [employer] threatened to shut off services in your [...] How often do you attend chur or zoroastrianism services? 1 to 4 times per year 09/13/2021 Do you belong to any clubs o r organizations such as sabianism groups, unions, fraternal or athletic groups, or [...] PHQ-2 Score 3 12/05/2023 [facility] - Occupational [...] your living situation today? I have a [facility] place to live 01/17/2024 Education Answer Date Recorded What is the highest level of school you have completed or the highest degree you have received? Doctorate 09/05/2018 Comments No Sex and Gender Information Value Date Recorded Sex Assigned at Female 12/19/2016 7:29 PM SUBASSEMBLY ASSEMBLER Legal Sex Female 7:58 AM SUBASSEMBLY ASSEMBLER Gender Identity Female 12/19/2016 7:29 PM SUBASSEMBLY ASSEMBLER Sexual Orientation Lesbian or Turcios 03/12/2020 12 :23 PM SUBASSEMBLY ASSEMBLER documented as of this encounter Plan of Treatment Upcoming Encounters Date Type Department Care Team (Late st Contact Info) Description 03/01/2024 10:00 AM SUBASSEMBLY ASSEMBLER Comprehensive Visit Section of Infectious Diseases in [address] [phone] Silvana Marrufo M.D. [address] [place] [phone] 03/01/2024 10:40 AM SUBASSEMBLY ASSEMBLER Lab Department of Laboratory Medicine and Pathology, [facility] in [address] [phone] Jolynn Cole P.A.-C., M.S. [address] [place] [phone] 03/01/2024 11:15 AM SUBASSEMBLY ASSEMBLER Appointment Department of Radiology, [facility] in [address] [phone] Jolynn Cole P.A.-C., M.S. [address] [place] [phone] 03/01/2024 12:00 PM SUBASSEMBLY ASSEMBLER Office Visit Department of Orthopedic Surgery in [address] [phone] Jolynn Cole P.A.-C., M.S. [address] [place] [phone] 03/13/2024 3:20 PM SUBASSEMBLY ASSEMBLER Comprehensive Visit Department of Family Medicine, [facility], in [place], [place] [address] [place] [address] Treasure Baires M.D. [address] [place] [phone] 03/14/2024 1:30 PM SUBASSEMBLY ASSEMBLER Virtual Visit Section of Infectious Diseases in [place], [place] [address] [place] [address] Silvana Marrufo M.D. [address] [place] [phone] documented as of this encounter Results * CT Ankle Left without IV Contrast (02/07/2024 1:25 PM SUBASSEMBLY ASSEMBLER) Anatomical Region Laterality Modality Ankle, Lower Extremity, Musc uloskeletal RST LOS, Musculoskeletal ARZ LOS, Muskuloskeletal FLA LOS Left Computed Tomography, Compute d Tomography Impressions 02/07/2024 2:15 PM SUBASSEMBLY ASSEMBLER Marked demineralization throughout the ankle and visualized [...] calcifications. Remainder negative. Narrative 02/07/2024 2:15 PM SUBASSEMBLY ASSEMBLER EXAM: CT ANKLE LEFT WITHOUT IV CONTRAST [...] recess. Arterial calcifications. Remaindernegative. Jolynn Cole P.A.-C. M.S. IMG CT PROCEDURES Final Result documented in this encounter Visit Diagnoses Diagnosis Pain Ankle Left- Primary Pain Ankle Left documented in this encounter Additional Health Concerns Assessment Noted Time PHQ-9 Depression Total Score: 7 12/05/19 24 11:33 PM CDT documented as of this encounter Care Teams Divider Operator Relationship Specialty Start Date End Date Treasure Baires M.D. [address] [place] [phone] PCP - General Family Medicine 09/08/23 documented as of this encounter
--- OUTSIDE RECORDS SUMMARY | 2024-02-09 07:08 | XMS_ITS | Encounter Summary ---
Author Organization [facility] Address [address] [place] [address] Care Team Providers Care Security Lead Name Role Phone Treasure Baires M.D. Primary Care Provider +1- [phone] Reason for Referral * Outpatient (Routine) - Closed Specialty Diagnoses / Procedures Referred By Cortes mak Referred To Contact Pharmacy Diagnoses Rn Baby Antibiotic Treatment Silvana Marrufo M.D. 200 [place] [address] Phone: tel: fax: [facility] Referral ID Status Reason Start Date Expiration Date Visits Re quested Visits Authorized [id number] Closed 01/23/2024 07/24/2025 1 1 CTOR TOXICOLOGY * Outpatient (Routine) - Authorized Specialty Diagnoses / Procedures Referred By Cortes mak Referred To Contact Diagnoses Rn Baby Antibiotic Treatment Corrina Berkowitz, AROLDOS, P.A.-C., M.S. [address] [place] [phone] Phone: tel: fax: Referral ID Status Reason Start Date Expiration Date V isits Requested Visits Authorized [id number] Authorized 01/20/2024 07/21/2025 5 5 CTOR TOXICOLOGY Reason for Visit * Reason Comments OPAT Encounter Details Date Type Department Care Team (Late st Contact Info) Description 01/20/2024 Patient Outreach Section of Infectious Diseases in [place], [place] [address] [place] [address] Liberty Gonzales OPAT Social History Tobacco Use Types Packs/Day Years Used Date Smoking Tobacco: Former Cigarettes 2002 Smokeless Tobacco: Never Alcohol Use Standard Drinks/Week Comments Yes 2 (1 standard drink = 0.6 oz pur e alcohol) [facility] Utilities Answer Date Recorded In the past [...] How often do you attend chur or congregation services? 1 to 4 times per year [...] PHQ-2 Score 3 12/05/2023 [facility] - Occupational Stress Questionnaire Answer Date [...] your living situation today? I have a [facility] place to live 01/17/2024 Education Answer Date Recorded What is the highest level of school you have completed or the highest degree you have received? Doctorate 09/05/2018 Comments No Sex and Gender Information Value Date Recorded Sex Assigned at Female 12/19/2016 7:29 PM DIRECTOR TOXICOLOGY Legal Sex Female 7:58 AM DIRECTOR TOXICOLOGY Gender Identity Female 12/19/2016 7:29 PM DIRECTOR TOXICOLOGY Sexual Orientation Lesbian or Turcios 03/12/2020 12 :23 PM DIRECTOR TOXICOLOGY documented as of this encounter Progress Notes * Kaden Moreland, Pharm.D., R.Ph. - 01/23/2024 8:47 AM CST Patient identified via CoPAT high risk medication report for antibiotics with extended duration andhigh-risk antibiotic (rifampin). Qualifies for ID pharmacist phone call follow-up or e-consultation. Order entered. CTOR TOXICOLOGY documented in this encounter Plan of Treatment Upcoming Encounters Date Type Department Care Team (Late st Contact Info) Description 03/01/2024 10:00 AM DIRECTOR TOXICOLOGY Comprehensive Visit Section of Infectious Diseases in [address] [phone] Silvana Marrufo M.D. [address] [place] [phone] 03/01/2024 10:40 AM DIRECTOR TOXICOLOGY Lab Department of Laboratory Medicine and Pathology, [facility], in [address] [phone] Jolynn Cole P.A.-C., M.S. [address] [place] [phone] 03/01/2024 11:15 AM DIRECTOR TOXICOLOGY Appointment Department of Radiology, [facility] in [place], [place] [address] [place] [phone] Jolynn Cole P.A.-C., M.S. [address] [place] [phone] 03/01/2024 12:00 PM DIRECTOR TOXICOLOGY Office Visit Department of Orthopedic Surgery in [place], [place] [address] [place] [phone] Jolynn Cole P.A.-C., M.S. [address] [place] [phone] 03/13/2024 3:20 PM DIRECTOR TOXICOLOGY Comprehensive Visit Department of Family Medicine, [facility], in [place], [place] [address] [phone] Treasure Baires M.D. [address] [place] [phone] 03/14/2024 1:30 PM DIRECTOR TOXICOLOGY Virtual Visit Section of Infectious Diseases in [place], [place] [address] [place] [phone] Silvana Marrufo M.D. [address] [place] [phone] Scheduled Referrals Name Type Priority Associated Diagnoses Orde r Schedule Pharmacy - General phone consult (clinic) Outpatient Referral Routine Rn Baby Antibiotic Treatment Expected: 01/24/2024, Expires: 04/22/2025 documented as of this encounter Visit Diagnoses Diagnosis Rn Baby Antibiotic Treatment- Primary documented in this encounter Additional Health Concerns Assessment Noted Time PHQ-9 Depression Total Score: 7 12/05/19 24 11:33 PM CDT documented as of this encounter Care Teams Security Lead Relationship Specialty Start Date End Date Treasure Baires M.D. [address] [place] [phone] PCP - General Family Medicine 09/08/23 documented as of this encounter
--- OUTSIDE RECORDS SUMMARY | 2024-02-09 07:09 | XMS_ITS | Encounter Summary ---
Author Organization [facility] Address [address] [place] [address] Care Team Providers Care Faa Certified Powerplant Mechanic Name Role Phone Treasure Baires M.D. Primary Care Provider [phone] Encounter Details Date Type Department Care Team (Late st Contact Info) Description 01/16/2024 Clinical Communication Department of Orthopedic Surgery in [place], [place] [address] [place] [phone] Brock Milton M.D. [address] [place] [phone] Social History Tobacco Use Types Packs/Day Years Used Date Smoking Tobacco: Former Cigarettes 2002 Smokeless Tobacco: Never Alcohol Use Standard Drinks/Week Comments Yes 2 (1 standard drink = 0.6 oz pur e alcohol) [facility] Utilities Answer Date Recorded In [...] often do you attend chur ch or roman catholic services? 1 to 4 times per year 09/13/2021 Do you belong to any clubs o r organizations such as congregational groups, unions, fraternal or athletic groups, or [...] Answer Date Recorded PHQ-2 Score 3 12/05/2023 [facility] [place] - Occupational Stress [...] your living situation today? I have a [facility] place to live 01/17/2024 Education Answer Date Recorded What is the highest level of school you have completed or the highest degree you have received? Doctorate 09/05/2018 Comments No Sex and Gender Information Value Date Recorded Sex Assigned at Female 12/19/2016 7:29 PM HOT PACKER Legal Sex Female 7:58 AM HOT PACKER Gender Identity Female 12/19/2016 7:29 PM HOT PACKER Sexual Orientation Lesbian or Turcios 03/12/2020 12 :23 PM HOT PACKER documented as of this encounter Plan of Treatment Upcoming Encounters Date Type Department Care Team (Late st Contact Info) Description 03/01/2024 10:00 AM HOT PACKER Comprehensive Visit Section of Infectious Diseases in [address] [phone] Silvana Marrufo M.D. [address] [place] [phone] 03/01/2024 10:40 AM HOT PACKER Lab Department of Laboratory Medicine and Pathology, [facility], in [place], [place] [address] [place] [phone] Jolynn Cole P.A.-C., M.S. [address] [place] [phone] 03/01/2024 11:15 AM HOT PACKER Appointment Department of Radiology, [facility] in [place], [place] [address] [place] [phone] Jolynn Cole P.A.-C., M.S. [address] [place] [phone] 03/01/2024 12:00 PM HOT PACKER Office Visit Department of Orthopedic Surgery in [place], [place] [address] [place] [phone] Jolynn Cole P.A.-C., M.S. [address] [place] [phone] 03/13/2024 3:20 PM HOT PACKER Comprehensive Visit Department of Family Medicine, [facility], in [place], [place] [address] [place] [phone] Treasure Baires M.D. [address] [place] [phone] 03/14/2024 1:30 PM HOT PACKER Virtual Visit Section of Infectious Diseases in [place], [place] [address] [place] [phone] Silvana Marrufo M.D. [address] [place] [phone] documented as of this encounter Visit Diagnoses Not on filedocumented in this encounter Additional Health Concerns Assessment Noted Time PHQ-9 Depression Total Score: 7 12/05/19 24 11:33 PM CDT documented as of this encounter Care Teams Faa Certified Powerplant Mechanic Relationship Specialty Start Date End Date Treasure Baires M.D. [address] [phone] PCP - General Family Medicine 09/08/23 documented as of this encounter
--- OUTSIDE RECORDS SUMMARY | 2024-02-09 07:09 | XMS_ITS | Encounter Summary ---
Author Organization [facility] Address [address] [place] [address] Care Team Providers Care Stationary Plant Operators Name Role Phone Treasure Baires M.D. Primary Care Provider [phone] Reason for Referral * Outpatient (Routine) - Authorized Specialty Diagnoses / Procedures Referred By Cortes mak Referred To Contact Infectious Diseases Diagnoses Aftercare Total Knee Arthroplasty Silvana Marrufo M.D. 200 [place] [address] Phone: tel: fax: [facility] Referral ID Status Reason Start Date Expiration Date V isits Requested Visits Authorized [id number] Authorized 01/18/2024 07/19/2025 1 1 S SERVICE ASSISTANT Reason for Visit * Reason Onset Date Comments Post Hospital Follow-up 01/18/2024 Encounter Details Date Type Department Care Team (Latest Contact Info) Description 01/18/2024 Clinical Communication [facility] [address] [place] [phone] Silvana Marrufo M.D. 200 [place] [phone] Post Hospital Follow-up Social History Tobacco Use Types Packs/Day Years Used Date Smoking Tobacco: Former Cigarettes 2002 Smokeless Tobacco: Never Alcohol Use Standard Drinks/Week Comments Yes 2 (1 standard drink = 0.6 oz pur e alcohol) [facility] Utilities Answer Date Recorded In [...] 09/13/2021 How often do you attend [facility] or episcopal services? 1 to 4 times [...] Answer Date Recorded PHQ-2 Score 3 12/05/2023 [facility] - Occupational Stress Questionnaire Answer Date [...] your living situation today? [facility] 01/17/2024 Education Answer Date Recorded What is the highest level of school you have completed or the highest degree you have received? Doctorate 09/05/2018 Comments No Sex and Gender Information Value Date Recorded Sex Assigned at Female 12/19/2016 7:29 PM SALES SERVICE ASSISTANT Legal Sex Female 7:58 AM SALES SERVICE ASSISTANT Gender Identity Female 12/19/2016 7:29 PM SALES SERVICE ASSISTANT Sexual Orientation Lesbian or Turcios 03/12/2020 12 :23 PM SALES SERVICE ASSISTANT documented as of this encounter Plan of Treatment Upcoming Encounters Date Type Department Care Team (Late st Contact Info) Description 03/01/2024 10:00 AM SALES SERVICE ASSISTANT Comprehensive Visit Section of Infectious Diseases in [address] [phone] Silvana Marrufo M.D. [address] [place] [phone] 03/01/2024 10:40 AM SALES SERVICE ASSISTANT Lab Department of Laboratory Medicine and Pathology, [facility] in [address] [phone] Jolynn Cole P.A.-C., M.S. [address] [place] [phone] 03/01/2024 11:15 AM SALES SERVICE ASSISTANT Appointment Department of Radiology, [facility] in [address] [phone] Jolynn Cole P.A.-C., M.S. [address] [place] [phone] 03/01/2024 12:00 PM SALES SERVICE ASSISTANT Office Visit Department of Orthopedic Surgery in [address] [phone] Jolynn Cole P.A.-C., M.S. [address] [place] [phone] 03/13/2024 3:20 PM SALES SERVICE ASSISTANT Comprehensive Visit Department of Family Medicine, [facility], in [place], [place] [address] [place] [phone] Treasure Baires M.D. [address] [place] [phone] 03/14/2024 1:30 PM SALES SERVICE ASSISTANT Virtual Visit Section of Infectious Diseases in [place], [place] [address] [place] [phone] Silvana Marrufo M.D. [address] [place] [phone] Scheduled Referrals Name Type Priority Associated Diagnoses Natasha Benson Infectious Disease - Ortho consult (clinic) Outpatient Referral Routine Aftercare Total Knee Arthroplasty Expected: 02/27/2024, Expires: 04/17/2025 documented as of this encounter Visit Diagnoses Diagnosis Aftercare Total Knee Arthroplasty- Primary documented in this encounter Additional Health Concerns Assessment Noted Time PHQ-9 Depression Total Score: 7 12/05/19 24 11:33 PM CDT documented as of this encounter Care Teams Stationary Plant Operators Relationship Specialty Start Date End Date Treasure Baires M.D. [address], [place] [phone] PCP - General Family Medicine 09/08/23 documented as of this encounter
--- OUTSIDE RECORDS SUMMARY | 2024-02-09 07:09 | XMS_ITS ---
Author Organization [facility] Address [address] [place] [address] Care Team Providers Care Sewer And Inspector Name Role Phone Treasure Baires M.D. Primary Care Provider Adult OPAT Service Episode Status:Enrolled (Active) Start date:01/18/2024 Enrollment date:01/19/2024 Related program episode:OPAT/COpAT Program (Active) Continued Care and Services Coordination
--- OUTSIDE RECORDS SUMMARY | 2024-02-09 07:09 | XMS_ITS ---
Author Organization [facility] Address [address] [place] [address] Care Team Providers Care Fire Department Marine Engineer Name Role Phone Treasure Baires M.D. Primary Care Provider [phone] OPAT/COpAT Program Status:Enrolled (Active) Start date:01/18/2024 Enrollment date:01/19/2024 Related service episodes:Adult OPAT Service Episode (Active) Continued Care and Services Coordination
--- OUTSIDE RECORDS SUMMARY | 2024-02-09 07:09 | XMS_ITS | Encounter Summary ---
Author Organization [facility] Address [address] [place] [address] Care Team Providers Care Sliver Former Name Role Phone Treasure Baires M.D. Primary Care Provider [phone] Reason for Referral * Outpatient (Routine) - Closed Specialty Diagnoses / Procedures Referred By Cortes mak Referred To Contact Diagnoses Aftercare Total Knee Arthroplasty Procedures DX Knee Left Standing 3 Views Jolynn Cole P.A.-C., M.S. [address] [place] [phone] Phone: tel: fax: [facility] Referral ID Status Reason Start Date Expiration Date Visits Re quested Visits Authorized [id number] Closed 11/29/2023 11/28/2024 1 1 CAL EQUIPMENT REPAIRER Reason for Visit * Outpatient (Routine) - Closed Specialty Diagnoses / Procedures Referred By Cortes mak Referred To Contact Diagnoses Aftercare Total Knee Arthroplasty Procedures DX Knee Left Standing 3 Views Jolynn Cole P.A.-C., M.S. [address] [place] [phone] Phone: tel: fax: [facility] Referral ID Status Reason Start Date Expiration Date Visits Re quested Visits Authorized [id number] Closed 11/29/2023 11/28/2024 1 1 Encounter Details Date Type Department Care Team (Latest Contact Info) Description 01/13/2024 8:23 AM MEDICAL EQUIPMENT REPAIRER - 01/13/2024 11:59 PM MEDICAL EQUIPMENT REPAIRER Hospital Encounter Department of Radiology, [facility] in [place], [place] [address] [place] [phone] Jolynn Cole P.A.-C., M.S. [address] [place] [phone] Aftercare Total Knee Arthroplasty Discharge Disposition: Home or Self Care Social History Tobacco Use Types Packs/Day Years Used Date Smoking Tobacco: Former Cigarettes 2002 Smokeless Tobacco: Never Alcohol Use Standard Drinks/Week Comments Yes 2 (1 standard drink = 0.6 oz pur e alcohol) [facility] Utilities Answer Date Recorded In the past 12 months has e electric, gas, oil, or water company threatened to shut off services in your home? No 11/22/2023 Humiliation, Afraid, Rape, and Kick questionnair e Answer Date Recorded Within the last year, have y ou been afraid of your partner or ex-partner? No 09/13/2023 Within the last year, have y ou been humiliated or emotionally abused in other ways by your partner or ex-partner? No Within the last year, have y ou been kicked, hit, slapped, or otherwise physically hurt by your partner or ex-partner? No 09/13/2023 Within the last year, have y ou been raped or forced to have any kind of sexual activity by your partner or ex-partner? No 09/13/2023 Social Connection and Isolation Panel [NHANES] A nswer Date Recorded In a typical week, how many times do you talk on the phone with family, friends, or neighbors? Once a week 09/14/19 How often do you get togethe r with friends or relatives? Once a week 09/13/2021 How often do you attend chur ch or latter day services? 1 to 4 times per year 09/13/2021 Do you belong to any clubs o r organizations such as yarsani groups, unions, fraternal or athletic groups, or [...] Answer Date Recorded PHQ-2 Score 3 12/05/2023 [facility] - Occupational Stress Questionnaire Answer [...] the money to buy more. Never true 11/22/19 24 Within the past 12 months, t he food you bought just didn't last and you didn't have money to get more. Never true 11/22/2023 PRAPARE - Transportation Answer Date Re corded In the past 12 months, has l ack of transportation kept you from medical appointments or from getting medications? No 11/07 In the past 12 months, has l ack of transportation kept you from meetings, work, or from getting things needed for daily living? No 11/22/2023 Depression Answer Date Recor ded PHQ-9 Total [...] [facility] 11/22/2023 Education Answer Date Recorded What is the highest level of school you have completed or the highest degree you have received? Doctorate 09/05/2018 Comments No Sex and Gender Information Value Date Recorded Sex Assigned at Female 12/19/2016 7:29 PM MEDICAL EQUIPMENT REPAIRER Legal Sex Female 7:58 AM MEDICAL EQUIPMENT REPAIRER Gender Identity Female 12/19/2016 7:29 PM MEDICAL EQUIPMENT REPAIRER Sexual Orientation Lesbian or Turcios 03/12/2020 12 :23 PM MEDICAL EQUIPMENT REPAIRER documented as of this encounter Medications at Time of Discharge acetaminophen (TYLENOL) 500 mg tablet Take 2 [...] date: 03/18/2024 236 capsule 01/19/2024 2:24 PM MEDICAL EQUIPMENT REPAIRER 01/19/2024 03/18/19 25 sennosides-docu sate sodium (SENOKOT-S) 8.6-50 mg per tablet Take 1 tablet by mouth at bedtime as needed for constipation. 07/15/2023 sodium chloride 0.9 % injection Infuse 10 mL into a venous catheter as needed for line care. 10 mL before and after medications administration and as needed for commercial lines account executive. 10 mL 11 01/19/2024 triamcinolone (Kenalog) 0.1 % cream Apply 1 Application topically 2 (two) times a day as needed for irritation or rash. Apply to affected area. cefTRIAXone in dextrose, iso osm, (Rocephin) 2 gram/50 mL IVBPIndications :Bone and/or joint infection Infuse 50 mL (2 g total) into a venous catheter daily Indications: Bone and/or joint infection. Stop date: 02/27/2024 1950 mL 01/19/2024 01/19/20 24 oxyCODONE (Roxicodone) 10 mg IR tabletIndicatio ns:Acute Pain Exception Take 1 tablet (10 mg total) by mouth every 3 (three) hours as needed for pain. Wean down on medication as able. 30 tablet 01/19/2024 2:24 PM MEDICAL EQUIPMENT REPAIRER 01/19/2024 01/25/20 24 sodium chloride 0.9 % injection Infuse 10 mL into a venous catheter as needed for line care. 10 mL before and after medications administration and as needed for commercial lines account executive. 10 mL 11 01/19/2024 01/19/20 24 documented as of this encounter Plan of Treatment Upcoming Encounters Date Type Department Care Team (Late st Contact Info) Description 03/01/2024 10:00 AM MEDICAL EQUIPMENT REPAIRER Comprehensive Visit Section of Infectious Diseases in [address] [phone] Silvana Marrufo M.D. [address] [place] [phone] 03/01/2024 10:40 AM MEDICAL EQUIPMENT REPAIRER Lab Department of Laboratory Medicine and Pathology, [address] [phone] Jolynn Cole P.A.-C., M.S. [address] [place] [phone] 03/01/2024 11:15 AM MEDICAL EQUIPMENT REPAIRER Appointment Department of Radiology, [address] [phone] Jolynn Cole P.A.-C., M.S. [address] [place] [phone] 03/01/2024 12:00 PM MEDICAL EQUIPMENT REPAIRER Office Visit Department of Orthopedic Surgery in [place], [place] [address] [place] [address] Jolynn Cole P.A.-C., M.S. 200 [place] [phone] 03/13/2024 3:20 PM MEDICAL EQUIPMENT REPAIRER Comprehensive Visit Department of Family Medicine, [facility], in [place], [place] [address] [place] [phone] Treasure Baires M.D. [address] [place] [phone] 03/14/2024 1:30 PM MEDICAL EQUIPMENT REPAIRER Virtual Visit Section of Infectious Diseases in [place], [place] [address] [place] [address] Silvana Marrufo M.D. [address] [place] [phone] documented as of this encounter Procedures Procedure Name Priority Date/Time Associated Diagnosis Comments DX KNEE LEFT STANDING 3 VIEWS RAD - Routine (most inpatients and all outpatients) 01/13/2024 8:52 AM MEDICAL EQUIPMENT REPAIRER Aftercare Total Knee Arthroplasty documented in this encounter Results * DX Knee Left Standing 3 Views (01/13/2024 8:52 AM MEDICAL EQUIPMENT REPAIRER) Anatomical Region Laterality Modality Lower Extremity, Knee, Muscu loskeletal RST LOS, Musculoskeletal ARZ LOS, Muskuloskeletal FLA LOS Left Digit al Radiography Impressions 01/13/2024 8:59 AM MEDICAL EQUIPMENT REPAIRER Left TKA with patellar resurfacing and long stem tibial component. No radiographic evidence of loosening. Knee joint effusion and periarticular soft tissue swelling. Healing fracture proximal tibia with significant progression of fracture healing since 11/29/2023. Healing fracture involving head and neck of the fibula. Pin tracks in the tibia. Osteopenia. Narrative 01/13/2024 8:59 AM MEDICAL EQUIPMENT REPAIRER EXAM: DX KNEE LEFT STANDING 3 VIEWS [...] tracks in the tibia. Osteopenia. Jolynn Cole P.A.-C. M.S. IMG DIAGNOSTIC IM AGING PROCEDURES Final Result documented in this encounter Visit Diagnoses Diagnosis Aftercare Total Knee Arthroplasty documented in this encounter Additional Health Concerns Assessment Noted Time PHQ-9 Depression Total Score: 7 12/05/19 24 11:33 PM CDT documented as of this encounter Care Teams Sliver Former Relationship Specialty Start Date End Date Treasure Baires M.D. [address] [place] [phone] PCP - General Family Medicine 09/08/23 documented as of this encounter
--- OUTSIDE RECORDS SUMMARY | 2024-02-09 07:09 | XMS_ITS | Encounter Summary ---
Author Organization [facility] Address [address] [place] [address] Care Team Providers Care Unit Manager [employer] Name Role Phone Treasure Baires M.D. Primary Care Provider [phone] Reason for Visit * Reason Comments Follow-up * Outpatient (Routine) - Closed Specialty Diagnoses / Procedures Referred By Cortes mak Referred To Contact Orthopedic Surgery Jolynn Cole P.A.-C., M.S. [address] [place] [phone] Phone: tel: fax: Brock Milton M.D. [address] [place] [phone] Phone: tel: fax: Referral ID Status Reason Start Date Expiration Date Visits Re quested Visits Authorized [id number] Closed 11/29/2023 05/30/2025 1 1 Encounter Details Date Type Department Care Team (Late st Contact Info) Description 01/13/2024 9:30 AM LEATHER POLISHER Office Visit Department of Orthopedic Surgery in [place] [id number] [place] [phone] Brock Milton M.D. [address] [place] [address] Jolynn Cole P.A.-C., M.S. 200 [place] [address] Fracture Tibial Plateau Closed Initial Left (Primary Dx); Aftercare Total Knee Arthroplasty Social History Tobacco Use Types Packs/Day Years Used Date Smoking Tobacco: Former Cigarettes 2002 Smokeless Tobacco: Never Alcohol Use Standard Drinks/Week Comments Yes 2 (1 standard drink = 0.6 oz pur e alcohol) [facility] Utilities Answer Date Recorded In the past 12 months has e [employer], gas, oil, or water [employer] threatened to shut off services in your [...] Answer Date Recorded PHQ-2 Score 3 12/05/2023 [facility] - Occupational Stress Questionnaire Answer Date [...] have a [facility] place to live 11/22/2023 Education Answer Date Recorded What is the highest level of school you have completed or the highest degree you have received? Doctorate 09/05/2018 Comments No Sex and Gender Information Value Date Recorded Sex Assigned at Female 12/19/2016 7:29 PM LEATHER POLISHER Legal Sex Female 7:58 AM LEATHER POLISHER Gender Identity Female 12/19/2016 7:29 PM LEATHER POLISHER Sexual Orientation Lesbian or Turcios 03/12/2020 12 :23 PM LEATHER POLISHER documented as of this encounter Progress Notes * Jolynn Cole P.A.-C., M.S. - 01/13/2024 9:30 AM CST Images from the original note were not included. Involved Side: Left Date of Injury: 07/03/2023 Date of Surgery: 07/04/2023 Application and knee spanning external fixator by Dr. Rodriguez, 07/13/2023 Adjustment of External Fixator, ORIF tibial tubercle by Dr. Milton, 09/12/2023 Total knee arthroplasty with removal of tibial tubercle hardware by Dr. Milton SUBJECTIVE: Reason for Visit: Follow-up of the Left Knee History of Present Illness Ms. Romero Douglas turns to clinic today for follow-up of the above. She continues to have pain in the medial left knee. Her pain has become constant. At her last visit, the pain was more intermittent. She reports that pain around the tibia fracture has resolved. The patient continues to have difficulty with knee range of motion and has actually lost knee flexion despite aggressive physical therapy. She notes that her therapist is now able to get her to about 60 degrees in flexion and 5 degreesin extension. She has significantly limited by the pain and decreased mobility in terms of her daily life. She is currently taking 4000 mg of Tylenol in 2003 100 mg of ibuprofen daily. The patient is scheduled to undergo lysis of adhesions surgically on 01/16/2024. She is interested in moving forward with procedural treatment for her decreased knee function. OBJECTIVE: vitals were not taken for this visit. Physical Exam: GENERAL: The patient is alert and oriented. NEURO: Sensation intact to light touch in the tibial, deep peroneal, and superficial peroneal nervedistributions. Able to fire the tibialis anterior, gastroc/soleus complex, EHL, FHL, and peroneus brevis. SKIN: Incision is clean, dry, and intact without erythema or drainage. Well healed. VESSELS: Well perfused appearing left lower extremity. GAIT: The patient is able to take several steps with the assistance of a cane. Gait is slow and slightly antalgic. MSK: Mild swelling around the left knee. Able to perform unassisted straight leg raise. Knee extension to 5 degrees, flexion to 65 degrees limited by stiffness and discomfort. Tenderness to palpationover the medial joint line. No tenderness over the tibial plateau at location previously known fracture. ASSESSMENT/PLAN: Radiographs: Xrays of the involved extremity were reviewed personally by me and demonstrate well-healed tibial plateau fracture. Total knee implants appear in acceptable alignment. Independently interpreted. Plan: We reviewed interval progress, radiographs, and plan for Ms. Romero Douglas. Patient was seen in conjunction with Dr. Milton today. We again had an extensive discussion with the patient regarding her current knee function. She is extremely limited by lack of range of motion. The patient is very insistent on moving forward with lysis of adhesions with open approach to the left knee. Dr. Milton again discussed with the patient that he feels it is early to perform this procedure as her scar tissue hasnot fully matured and the risk of recurrence of this scar tissue is high. The patient understands that it is possible that her scar tissue may be even more dense after this procedure. Dr. Milton has rec ommended a longer waiting period to allow scar tissue to mature to decrease the risk of recurrence of scar tissue. The patient understands this recommendation but feels that she is losing strength and mobility due to the lost time and would like to move forward as soon as possible. We also discussed with the patient that manipulation under anesthesia without open procedure would be an option. Sheunderstands and has considered this. The patient notes that if Dr. Milton is able to flex her knee to110 degrees with manipulation only and no open procedure, she would be in favor of manipulation under anesthesia without open surgery. Dr. Milton will first attempt manipulation under anesthesia. If heis able to get the knee to 110 degrees, the procedure will be completed. Photographs will be taken at this time. If unable to obtain 110 degrees flexion, Dr. Milton we will proceed with lysis of adhesions. The patient understands the recommendation to wait longer and the risk of recurrence of scar tissue as noted above. Risks, benefits and alternatives to the procedure were discussed today. Consent was obtained for manipulation left knee under anesthesia versus open lysis of adhesion with polyethylene exchange left knee. Surgical date has been selected: 01/16/2024. We discussed NPO instructions. The patient is advised to avoid eating or drinking after midnight inpreparation for surgery. Hibiclens wash has been provided to the patient. Advised to wash with soap twice prior to surgery and provided with a pamphlet with instructions on this process. Patient was provided with surgical teaching checklist including telephone number to call for surgical arrival time if she does not receive a text message with arrival time the evening before surgery. We discussed with the patient's medications. Advised to hold: No medications on day of surgery. Advised to avoid any blood thinning products such as aspirin on the day of surgery. Anticipate this to be an inpatient surgery. Following the procedure, the patient will be weight-bearing as tolerated. A CPM machine will be initiated at 0 to 110 degrees for up to 20 hours per day. Current activity: Weightbearing as tolerated Code Status: Full code Patient was provided with contact information for our service and encouraged to reach out prior to surgery with any questions or concerns. CLINICAL OUTCOME ASSESSMENT: Current weight bearing status: Weight bearing as tolerated SANE Score (How would you rate your knee today as a percentage of normal?): Not evaluated 11/22/2023 12/13/2023 01/06/2024 Sports Medicine PROMIS-CAT: Pain interference 67 (moderate) 71 (severe) 73 (severe) PROMIS-CAT: Physical function 34 (moderate dysfunction) 32 (moderate dysfunction) 29 (severe dysfunction) HER POLISHER documented in this encounter Plan of Treatment Upcoming Encounters Date Type Department Care Team (Late st Contact Info) Description 03/01/2024 10:00 AM LEATHER POLISHER Comprehensive Visit Section of Infectious Diseases in [address] [phone] Silvana Marrufo M.D. [address] [place] [phone] 03/01/2024 10:40 AM LEATHER POLISHER Lab Department of Laboratory Medicine and Pathology, [facility], in [place], [place] [address] [place] [address] Jolynn Cole P.A.-C., M.S. [address] [place] [phone] 03/01/2024 11:15 AM LEATHER POLISHER Appointment Department of Radiology, [facility] in [place], [place] [address] [place] [phone] Jolynn Cole P.A.-C., M.S. [address] [place] [phone] 03/01/2024 12:00 PM LEATHER POLISHER Office Visit Department of Orthopedic Surgery in [place], [place] [address] [place] [phone] Jolynn Cole P.A.-C., M.S. [address] [place] [phone] 03/13/2024 3:20 PM LEATHER POLISHER Comprehensive Visit Department of Family Medicine, [facility], in [place], [place] [address] [place] [address] Treasure Baires M.D. [address] [place] [address] 03/14/2024 1:30 PM LEATHER POLISHER Virtual Visit Section of Infectious Diseases in [place], [place] [address] [place] [phone] Silvana Marrufo M.D. [address] [place] [address] documented as of this encounter Visit Diagnoses Diagnosis Fracture Tibial Plateau Closed Initial Left- Primary Aftercare Total Knee Arthroplasty documented in this encounter Additional Health Concerns Assessment Noted Time PHQ-9 Depression Total Score: 7 12/05/19 24 11:33 PM CDT documented as of this encounter Care Teams Unit Manager [employer] Relationship Specialty Start Date End Date Treasure Baires M.D. [address] [place] [phone] PCP - General Family Medicine 09/08/23 documented as of this encounter
--- OUTSIDE RECORDS SUMMARY | 2024-02-09 07:09 | XMS_ITS | Encounter Summary ---
Author Organization [facility] Address [address] [place] [address] Care Team Providers Care Cryogenics Engineer Name Role Phone Treasure Baires M.D. Primary Care Provider [phone] Encounter Details Date Type Department Care Team (Late st Contact Info) Description 01/09/2024 Orders Only Department of Orthopedic Surgery in [place], [place] [address] [place] [phone] Jolynn Cole P.A.-C., M.S. [address] [place] [phone] Social History Tobacco Use Types Packs/Day Years [...] often do you attend chur ch or jehovah's witness services? 1 to 4 times per year [...] Answer Date Recorded PHQ-2 Score 3 12/05/2023 [facility]ational Stress Questionnaire [...] a [facility] place to live 01/17/2024 Education Answer Date Recorded What is the highest level of school you have completed or the highest degree you have received? Doctorate 09/05/2018 Comments No Sex and Gender Information Value Date Recorded Sex Assigned at Female 12/19/2016 7:29 PM FILLER AND TRIMMER Legal Sex Female 7:58 AM FILLER AND TRIMMER Gender Identity Female 12/19/2016 7:29 PM FILLER AND TRIMMER Sexual Orientation Lesbian or Turcios 03/12/2020 12 :23 PM FILLER AND TRIMMER documented as of this encounter Plan of Treatment Upcoming Encounters Date Type Department Care Team (Late st Contact Info) Description 03/01/2024 10:00 AM FILLER AND TRIMMER Comprehensive Visit Section of Infectious Diseases in [address] [phone] Silvana Marrufo M.D. [address] [place] [phone] 03/01/2024 10:40 AM FILLER AND TRIMMER Lab Department of Laboratory Medicine and Pathology, [facility], in [place], [place] [address] [place] [address] Jolynn Cole P.A.-C., M.S. [address] [place] [phone] 03/01/2024 11:15 AM FILLER AND TRIMMER Appointment Department of Radiology, [facility] in [place], [place] [address] [place] [phone] Jolynn Cole P.A.-C., M.S. [address] [place] [phone] 03/01/2024 12:00 PM FILLER AND TRIMMER Office Visit Department of Orthopedic Surgery in [place], [place] [address] [place] [phone] Jolynn Cole P.A.-C., M.S. [address] [place] [phone] 03/13/2024 3:20 PM FILLER AND TRIMMER Comprehensive Visit Department of Family Medicine, [facility], in [place], [place] [address] [place] [phone] Treasure Baires M.D. [address] [place] [phone] 03/14/2024 1:30 PM FILLER AND TRIMMER Virtual Visit Section of Infectious Diseases in [place], [place] [address] [place] [phone] Silvana Marrufo M.D. [address] [place] [address] [place] [phone] documented as of this encounter Visit Diagnoses Not on filedocumented in this encounter Additional Health Concerns Assessment Noted Time PHQ-9 Depression Total Score: 7 12/05/19 24 11:33 PM CDT documented as of this encounter Care Teams Cryogenics Engineer Relationship Specialty Start Date End Date Treasure Baires M.D. [address] [place] [phone] PCP - General Family Medicine 09/08/23 documented as of this encounter
--- OUTSIDE RECORDS SUMMARY | 2024-02-09 07:09 | XMS_ITS | Encounter Summary ---
Author Organization [facility] Address [address] [place] [address] Care Team Providers Care Mechanical Engineering Officer Name Role Phone Treasure Baires M.D. Primary Care Provider [phone] Reason for Visit * Auth/Cert (Routine) Specialty Diagnoses / Procedures Referred By Cortes mak Referred To Contact Diagnoses Aftercare Total Knee Arthroplasty Aftercare Total Knee Arthroplasty [Z47.1, Z96.659] Procedures OH MANIP KNEE JT W ANES ARTHROPLASTY REPLACEMENT TOTAL KNEE, LYSIS OF ADHESIONS Brock Milton M.D. [address] [place] [address] Phone: tel: fax: Referral ID Status Reason Start Date Expiration Date Visits Re quested Visits Authorized [id number] 1 1 Encounter Details Date Type Department Care Team (Latest Contact Info) Description 01/16/2024 7:29 AM FRET SAW OPERATOR - 01/19/2024 1:56 PM FRET SAW OPERATOR Hospital Encounter [facility], [facility], Ninth Floor [address] [place] [phone] Brock Milton M.D. [address] [place] [phone] Infection Total Knee Arthroplasty Initial Left (HCC) (Primary Dx); Aftercare Total Knee Arthroplasty; Decline Functional Status [R53.81] Discharge Disposition: Home or Self Care Social History Tobacco Use Types Packs/Day Years Used Date Smoking Tobacco: Former Cigarettes 2002 Smokeless Tobacco: Never Alcohol Use Standard Drinks/Week Comments Yes 2 (1 standard drink = 0.6 oz pur e alcohol) [facility] Utilities Answer Date Recorded In the past 12 months has e [employer], gas, oil, or water [employer] threatened to shut off services in your [...] How often do you attend chur or yazdanism services? 1 to 4 times per year 09/13/2021 Do you belong to any clubs o r organizations such as episcopal groups, unions, fraternal or athletic groups, or [...] Answer Date Recorded PHQ-2 Score 3 12/05/2023 [facility] [place] [facility] - Occupational Stress Questionnaire Answer Date Recorded [...] your living situation today? I have a [facility] place to live 01/17/2024 Education Answer Date Recorded What is the highest level of school you have completed or the highest degree you have received? Doctorate 09/05/2018 Comments No Sex and Gender Information Value Date Recorded Sex Assigned at Female 12/19/2016 7:29 PM FRET SAW OPERATOR Legal Sex Female 7:58 AM FRET SAW OPERATOR Gender Identity Female 12/19/2016 7:29 PM FRET SAW OPERATOR Sexual Orientation Lesbian or [place] 03/12/2020 12 :23 PM FRET SAW OPERATOR documented as of this encounter Last Filed Vital Signs Vital Sign Reading Time Taken Comments Blood Pressure 133/67 01/18/2024 4:00 AM FRET SAW OPERATOR Pulse 90 01/19/2024 12:41 PM FRET SAW OPERATOR Temperature 36.6 C (97.9 F) 01/19/2024 5:00 AM FRET SAW OPERATOR Respiratory Rate 22 01/19/2024 12:41 PM FRET SAW OPERATOR Oxygen Saturation 97% 01/19/2024 12:41 PM FRET SAW OPERATOR Inhaled Oxygen Concentration - - Weight 73.5 kg (162 lb 0.6 oz) 01/18/2024 10:15 PM FRET SAW OPERATOR Height 163 cm (5' 4.17) 01/16/2024 8:03 AM FRET SAW OPERATOR Body Mass Index 27.66 01/16/2024 8:03 AM FRET SAW OPERATOR documented in this encounter Discharge Summaries * Jolynn Cole P.A.-C., M.S. - 01/19/2024 10:24 AM CST INPATIENT DISCHARGE SUMMARY BRIEF OVERVIEW Discharge Provider: Brock Milton M.D. Primary Care Providers: Treasure Baires M.D. (General) [address] [place] [phone] Primary Care Provider Primary Care Provider Admission Date: 01/16/2024 Discharge Date: 01/19/2024 PRINCIPAL DIAGNOSIS Aftercare Total Knee Arthroplasty SECONDARY DIAGNOSES #1 Aftercare Total Knee Arthroplasty #2 Pain Knee Left #3 Decline Functional Status Surgery Information This Encounter Past Procedures (01/19/2023 to Today) Date Procedures Providers Loc / Dept 01/16/2024 LEFT TOTAL KNEE LYSIS OF ADHESIONS, POLYETHYLENE EXCHANGE Brock Milton M.D.Hadley, Matthew L, M.D. RST ROMB OR DISCHARGE DISPOSITION: Home or Self Care [1] POST DISCHARGE RECOMMENDATIONS: ORTHOPEDIC RECOMMENDATIONS: MOBILITY (left lower extremity): You may weight bear as tolerated, using a walker or crutches for assistance with ambulation. You should perform aggressive knee range of motion exercises. You are to keep your heel off the bed at all times to prevent pressure ulcers from forming. You will continue with physical therapy and rehabilitation exercises as described in the hospital. CPM MACHINE: Continue machine at settings of at least 0-110 degrees for up to 20 hours per day as tolerated. Continue machine for 4-6 weeks. Will discuss ongoing use at follow up visit. BLOOD CLOT PROPHYLAXIS: You will be taking Aspirin twice daily for 4 weeks. Stop date: 02/13/2024. You have been instructed in the signs and symptoms of deep venous thrombosis, including calf swelling,pain or redness, fever, chills or sweats. You have been instructed on the signs and symptoms of pulmonary embolism including chest pain or shortness of breath. Should you develop any of the above symptoms, you should contact Dr. Milton's Service immediately and/or visit an emergency room. PAIN: Alternate tylenol and ibuprofen for pain control. Do not exceed 4,000 mg of tylenol and 2,400mg of ibuprofen daily. Take with food. You may take up to 1,000 mg of tylenol every 6 hours and 600mg of ibuprofen every 6 hours. Oxycodone, a narcotic pain medication, can be used for breakthrough pain. This medication can cause numerous side effects including nausea, constipation, sedation and confusion. Narcotic pain medication should be used for 1 to 2 weeks after surgery. It is recommended that a stool softener be used while taking this medication. Any ojdc-nbe-dyplckm stool softener or laxative, such as Colace, Dulcolax, or Senokot, is appropriate. Do not drive, operate heavy machinery, ride motorcycles or ATVs, drink alcohol, or take other drugs that make you tired or sleepy while taking narcotic pain medications. You should wean off of the narcotic pain medications as you are able to.You should utilize non- medication pain management modalities such as frequent elevation, application of ice for 20-30 minutes at least 3-4 times per day, repositioning, massage, music therapy andtopical pain relievers such as over the counter Voltaren gel or lidocaine patches. Avoid applying topical medications directly over incisions. You will need to fully wean off of oxyCODONE by 02/06/2024, or will need to make arrangements to see you Primary Care provider to discuss ongoing pain manage ment if unable to wean off at that time (3 weeks post surgery). SURGICAL INCISION: You have a surgical incision to the left knee. The incision should be monitored closely for any changes that would be concerning for infection including increased redness, any drainage or increased pain or tenderness around the surgical site. You should also monitor for systemic signs of infection such as fever, chills or night sweats. If these findings are noted, patient should contact Dr. Milton's team immediately to discuss next steps in treatment. Dressing may be removed 2 to 3 days after hospital discharge. You should keep the incision clean and dry. You should change the dressings over the wound as needed to keep it clean and dry. There are surgical alexx or sutures in place that should not be removed until 14 to 21 days from the date of surgery. This will be doneat your follow up visit. You may shower getting the surgical site wet, providing that you have had two consecutive days of a dry wound. However, the patient was advised not to submerge the wound under water in bath tubs, swimming pools, or hot tubs for at least 3 weeks following the date of surgery(until fully healed and all scabbing has resolved) . Please call with any concerns regarding the surgical incision. FOLLOW UP: You will be seen in the Orthopedic Trauma Service clinic by Dr. Milton's team for a follow-up appointment to remove your sutures/alexx in 3 weeks. You will be contacted with appointment information. If you have any concerns, or to make or verify appointments, Dr. Milton's Service may be contacted at during business hours. Please attempt to call during business hours. For emergent problems, the service may be contacted by calling the [facility] door machine operator at , asking to speak to Dr. Milton's Service. INFECTIOUS DISEASE RECOMMENDATIONS: Antimicrobial plan: Patient will stay on the following antimicrobials: Ceftriaxone 2 gm IV every 24 hours Tentative stop date stop date: 02/27/2024; final stop date to be determined at follow up visit Rifampin 300 mg p.o. b.i.d. stop date: 03/18/2024; final stop date to be determined at follow up visit Lab monitoring while on antimicrobial therapy: Yes, weekly on antibiotics Complete blood count withdifferential, Alanine aminotransferase (ALT), Creatinine, and Alkaline phosphatase. Please fax to division of Infectious Diseases OPAT monitoring program at [phone]. Should patient be enrolled in OPAT/COPAT program: Yes- Adult OPAT Infectious Diseases follow-up: Follow-up: Follow up with orthopedic infectious diseases on 02/27/2024. Priorities for scheduling: Coordination of care: Coordinate with orthopedic team visit. Central catheter management at end of treatment: Central catheter removal decision will be made at follow-up appointment but an appointment for PICC removal should be made for AFTER ID clinical appointment. OUTPATIENT FOLLOW UP Scheduled Appointments 03/13/2024 3:20 PM Treasure Baires M.D. Family Medicine For appointment details refer to your Patient Appointment Guide. TEST RESULTS PENDING AT DISCHARGE Pending Labs Order Current Status Fungal Culture, Routine In process Fungal Culture, Routine In process Fungal Culture, Routine In process Mycobacterial Culture In process Mycobacterial Culture In process Mycobacterial Culture In process Bacteria Culture, Aerobe / Anaerobe + Susc Preliminary result Bacteria Culture, Aerobe / Anaerobe + Susc Preliminary result Bacteria Culture, Aerobe / Anaerobe + Susc Preliminary result DISCHARGE MEDICATIONS Medication List TAKE these medications acetaminophen 500 mg tablet Dose: 1,000 mg Commonly known as: TylenoL Take 2 tablets (1,000 mg total) by mouth every 6 (six) hours as needed for pain. aspirin [address] tablet Dose: 81 mg Take 1 tablet (81 mg total) by mouth 2 (two) times a day for 25 days. Stop date: 02/13/2024 to reducerisk for blood clots buPROPion XL 300 mg 24 hr tablet Dose: 300 mg Commonly known as: Wellbutrin XL Take 1 tablet (300 mg total) by mouth every morning. calcium citrate-vitamin D3 315 mg-5 mcg (200 Unit) per tablet Dose: 2 tablet Commonly known as: Citracal + D3 Take 2 tablets by mouth daily with breakfast. cefTRIAXone in dextrose (iso osm) 2 gram/50 mL IVBP Dose: 2 g Commonly known as: Rocephin Infuse 50 mL (2 g total) into a venous catheter daily Indications: Bone and/or joint infection. Stop date: 02/27/2024 cetirizine 10 mg tablet Dose: 10 mg Commonly known as: ZyrTEC EPINEPHrine 0.3 mg/0.3 mL injection syringe For diagnoses: Allergy Personal History Dose: 0.3 mg Commonly known as: EpiPen Inject 0.3 mL (0.3 mg total) intramuscularly as needed for anaphylaxis. Inject into the thigh. ibuprofen 800 mg tablet For diagnoses: Pain Chest Dose: 800 mg Take 1 tablet (800 mg total) by mouth 3 (three) times a day as needed for pain (pain. take with food.). levothyroxine 100 mcg tablet For diagnoses: Hypothyroidism Dose: 100 mcg Take 1 tablet (100 mcg total) by mouth daily. ohnixvsvmuzz-amfd-UG 18-400 mg-mcg tablet Dose: 2 tablet oxyCODONE 10 mg IR tablet Dose: 10 mg Commonly known as: Roxicodone Take 1 tablet (10 mg total) by mouth every 3 (three) hours as needed for pain Indication: Acute Pain Exception. Wean down on medication as able. polyethylene glycol 17 gram powder packet Dose: 1 packet Commonly known as: Miralax Take 1 packet by mouth daily as needed for constipation. Dissolve each 17 g dose in 240 mLs (8 ounces) of beverage. pravastatin 80 mg tablet For diagnoses: Hypercholesterolemia Dose: 80 mg Commonly known as: PravachoL Take 1 tablet (80 mg total) by mouth at bedtime. rifAMPin 300 mg capsule Dose: 300 mg Commonly known as: Rifadin Take 1 capsule (300 mg total) by mouth 2 (two) times a day Indications: Bone and/or joint infection. Tentative stop date: 03/18/2024 sennosides-docusate sodium 8.6-50 mg per tablet Dose: 1 tablet Commonly known as: Senokot-S Take 1 tablet by mouth at bedtime as needed for constipation. sodium chloride 0.9 % injection Dose: 10 mL Infuse 10 mL into a venous catheter as needed for line care. 10 mL before and after medications administration and as needed for line painting machine operator. triamcinolone 0.1 % cream Dose: 1 Application Commonly known as: Corina DETAILS OF HOSPITAL STAY REASON FOR ADMISSION Aftercare Total Knee Arthroplasty Pain Knee Left HOSPITAL COURSE # Open lysis of adhesions left knee for decreased range of motion On the day of admission, the patient was taken to the operative room by Dr. Milton for the procedure listed above. The intraoperative as well as the immediate postoperative course were uncomplicated. For further details of the surgery please see the operative note. The patient was transferred from the PACU to the general care floor. CPM machine was initiated immediately post operatively to maintainknee flexion. Intra-operative cultures returned positive and thus Infectious Disease team was consulted for assistance with management of antibiotic plan. A PICC line was placed prior to discharge. She was ambulating and compliant with any activity restrictions. She was tolerating an oral diet atthe time of dismissal and she had optimal pain control on oral medications. She then met criteria for dismissal and was discharged to home. # Left total knee arthroplasty on 09/12/2023. # Fracture Tibial Plateau Closed Initial Left # Anxiety Generalized Disorder # Depression Major # Gastroesophageal Reflux Disease NOS # Hypercholesterolemia # Hypothyroidism # Obesity Body Mass Index 30-39.9 Adult # Regurgitation Mitral CONSULTS ORDERED DURING THIS ADMISSION: IP CONSULT TO DIETITIAN IP CONSULT TO INFECTIOUS DISEASES IP CONSULT TO ADDICTION IP CONSULT TO CARE MANAGEMENT CONDITION AT DISCHARGE Stable Discharge instructions were provided to the patient and caregiver(s). SAW OPERATOR documented in this encounter Discharge Instructions * Attachments The following attachments cannot be sent through Care Everywhere. * Ceftriaxone (By injection) (American) * Rifampin (By mouth) (American) * Oxycodone, Rapid Release (By mouth) (American) * Aspirin (By mouth) (American) * Sodium Chloride (By injection) (American) documented in this encounter Medications at Time of Discharge [...] date: 03/18/2024 236 capsule 01/19/2024 2:24 PM FRET SAW OPERATOR 01/19/2024 03/18/19 25 sennosides-docu sate sodium (SENOKOT-S) 8.6-50 mg per tablet Take 1 tablet by mouth at bedtime as needed for constipation. 07/15/2023 sodium chloride 0.9 % injection Infuse 10 mL into a venous catheter as needed for line care. 10 mL before and after medications administration and as needed for line painting machine operator. 10 mL 11 01/19/2024 triamcinolone (Kenalog) 0.1 % cream Apply 1 Application topically 2 (two) times a day as needed for irritation or rash. Apply to affected area. oxyCODONE (Roxicodone) 10 mg IR tabletIndicatio ns:Acute Pain Exception Take 1 tablet (10 mg total) by mouth every 3 (three) hours as needed for pain. Wean down on medication as able. 30 tablet 01/19/2024 2:24 PM FRET SAW OPERATOR 01/19/2024 01/25/20 documented as of this encounter Progress Notes * Xavier Duncan PPrakashTPrakash, D.P.T. - 01/19/2024 10:20 AM CST Physical Therapy Inpatient Treatment Note SUBJECTIVE Patient's Name: Shreya Arriazaevin Rivasev Referring/Attending: Brock Milton M.D. Medical Diagnosis: Aftercare Total Knee Arthroplasty [Z47.1, Z96.659] Pain Knee Left [M25.562] Reason for Referral: PT Evaluate and Treat PT - Ortho Onset Date: 01/16/24 [facility] Plan: [place] OPEN ACCESS / Product Type: PPO / History of Present Illness: Right TKA Family/Caregiver Present: No Patient/Caregiver Goals: Return home when able. Patient Comments: Patient feels she is doing better today than yesterday. She says she may be heading home today. Precautions Weight Bearing Status: Weight bearing as tolerated left lower extremity. Other Precautions: aggressive knee ROM in CPM machine--0-110 degrees up to 20 hours per day as tolerated OBJECTIVE Shreya's NOHARM modalities were used during their therapy session. Treatment consisted of: Bed Mobility - Supine to Sit # of Assistants: 1 Level of Assistance: Supervision/Set-up, Modified Independent Device: Head of bed elevated Sit to Stand Transfers # of Assistants: 1 Transfer Surface: Bed Transfer Equipment: Gait belt, Front wheeled walker Level of Assistance: Modified Independent, Supervision/set-up Assessment/Delivery: Assessed Stand to Sit Transfers # of Assistants: 1 Transfer Surface: Chair Transfer Equipment: Front wheeled walker, Gait belt Level of Assistance: Modified independent, Supervision/set-up Assessment/Delivery: Assessed Gait Assessment/Training Distance (m): 85 m Surface: Even Device: Gait belt, Front-wheeled walker # of Assistants: 1 Level of Assistance: Modified Independent, Supervision/Set-up Quality/Pattern: Antalgic, Guarding Stairs/Curb # Stairs: 3 Rails: 1 Device: Gait belt, No device # of Assistants: 1 Level of Assistance: Supervision/Set-up Stair Navigation Pattern-Ascending: Step-to pattern Stair Navigation Pattern-Descending: Step-to pattern Patient was left in bedside chair at end of session with call light in reach, all needs met and questions answered. Outcome Measures [facility] Inpatient Short Form: -[facility] Basic Mobility (V.2) How much help from another person do you currently need???If the patient hasn't done an activity recently, how much help from another person do you think he/she would needif he/she tried? 1. Turning from your back to your side while in a flat bed without using bedrails?: None 2. Moving from lying on your back to sitting on the side of a flat bed without using bedrails?: None 3. Moving to and from a bed to a chair (including a wheelchair)?: A Little 4. Standing up from a chair using your arms (e.g., wheelchair, or bedside chair)?: A Little 5. To walk in hospital room?: A Little 6. Climbing 3-5 steps with a railing?: A Little -[facility] Basic Mobility (V.2) Raw Score: 20 AM-[facility] Basic Mobility (V.2) Standardized Score: 43.99 Interpretation: Clinicians answer the -[facility] Inpatient Short Form based on observed patient activity and/or clinical judgement (ie. patient can be scored without physically performing each activity) Based on scoring guidelines using the raw score value: Those going to home had an average score at or above 18 Those going to facility had an average score at or below 17 Assessment Discharge Therapy Needs - PT: Ongoing skilled physical therapy Skilled therapy can include physical therapy provided by home health, outpatient clinic, or a post-acute facility. The location of these services is determined by the patient's care team in partnership with patient/family. Barriers to Discharge Home: None From a physical therapy perspective, the level of care above has been recommended for Ms. Romero Douglas after hospital discharge. This level of care is based on her functional abilities during today's session. This may change throughout the hospital course and will be updated as appropriate. Clinical Impression of today's session: The patient did well with functional mobility tasks and has currently met her acute therapy goals. She is pleased to be feeling better with mobility today when compared to how she felt yesterday. Sheanticipates a possible discharge home today and has no concerns. In the event that she does not leave, she would like another therapy session to work on mobility and ROM. Rehab potential: Ms. Romero Douglas has potential to achieve established physical therapy goals within the time frame outlined below. Progress: All PT goals achieved Functional Goals and Timeframes: PT Inpatient Goals PT Goal #1: Patient will perform bed mobility including supine <> sit transition without use of special bed features modified independently to demonstrate progress toward functional baseline. PT Goal #1 Status: Achieved PT Goal #2: Patient will demonstrate vdy-qi-tfyna transfers with the least restrictive gait aid andmodified independence to demonstrate progress toward functional baseline. PT Goal #2 Status: Achieved PT Goal #3: Patient will ambulate 50 meters with the least restrictive gait aid and modified independence or better while executing the task with good safety awareness, stability, and functional strength to demonstrate progress toward functional baseline. PT Goal #3 Status: Achieved PT Goal #4: Patient will be able to ascend/descend 1 platform step with a front wheeled walker and supervision while executing the task with good safety awareness, stability, and functional strength to demonstrate ability to access home environment and progress toward functional baseline. PT Goal #4 Status: Achieved Plan Patient agrees with the plan of care and goals. Treatment Plan: Plan: Alter current plan PT Frequency: PT Amount: 1 visit per day PT Frequency: Follow-up visit only PT Inpatient Duration : Until goals are met or hospital discharge Requires Inpatient Follow-Up: Yes PT - Next Inpatient Appointment: 01/20/24 PT Plan Comments: Follow up visit per patient request to continue mobility and ROM. Treatment interventions may include: Treatment/Interventions: Therapeutic exercise, Therapeutic functional activity, Neuromuscular re-education, Gait training, Self-care/home management Billing: Time Spent with Patient Therapeutic Interventions Therapeutic Activity (min): 33 min Time Tracking Total Timed Units (min): 33 min Total Treatment Time (min): 33 min Xavier Duncan P.T., Regine.P.TPrakash SAW OPERATOR * Margareth Minor M.D. - 01/19/2024 8:00 AM CST OTS 1 Progress Note Hospital Admission Day: 01/16/2024 Postoperative Day: 3 Procedure: L knee open lysis of adhesions, polyethylene exchange (01/15) SUBJECTIVE No acute events overnight. AFVSS. Pain is well controlled. Tolerating PO intake. Denies any chest pain, shortness of breath, or calf pain. Ambulated 10 m with PT. Remains in CPM machine. Had PICC line placed. OR Cx (01/15): MSSA VITALS Temperature: [36.3 ??C-36.8 ??C] 36.6 ??C Heart Rate: [59-107] 61 Resp Rate: [11-19] 12 SpO2: [94 %-98 %] 95 % Pulse Rate: [60-90] 60 PHYSICAL EXAM General: Awake, alert, no acute distress. Heart: Regular Rate. Extremities generally warm and well-perfused. Lungs: Non labored breathing, equal chest rise. Skin: No signs of breakdown from surgical positioning. MUSCULOSKELETAL: LEFT Lower Extremity: Overall appearance: Dressings are clean, dry, and intact. Compartments are soft. Calves soft and non-tender. Remains on CPM machine. Sensation: SILT at L2 - S1 dermatomes and superficial and deep peroneal, sural, saphenous, tibial distributions. Motor: Firing TA, GSC, EHL, FHL with 5/5 strength Circulation: No cyanosis noted. 2+ DP pulse DIAGNOSTICS Lab Results Component Value Date WBC 7.9 01/17/2024 HGB 9.5 (L) 01/17/2024 HCT 30.6 (L) 01/17/2024 MCV 89.5 01/17/2024 PLT 250 01/17/2024 Lab Results Component Value Date NA 140 01/17/2024 CL 103 01/17/2024 CO2 29 12/15/2015 Lab Results Component Value Date CREATININE 0.71 01/17/2024 Lab Results Component Value Date INR 1.1 07/03/2023 PT 11.7 07/03/2023 ASSESSMENT / PLAN IMPRESSION/REPORT/PLAN #1 Aftercare Total Knee Arthroplasty #2 Pain Knee Left #3 Decline Functional Status #1 Status post L knee open lysis of adhesions, poly exchange #2 L knee prosthetic joint infection 73 year old female who is status post the above procedures. She is doing well postoperatively. She is neurovascularly intact. Remains on CPM machine. OR cultures are positive for MSSA. She had PICC line placed. - Antibiotics: Standing ancef q8h, rifAMPin 300 mg bid pending ortho ID recs - OR Cx (01/15): MSSA - Activity: LLE WBAT - Consults: HIM, PT/OT, SW - DVT Prophylaxis: SCD's and early mobilization. Aspirin 81 mg BID. - Dressing: C/D/I - Diet: Adult Diet Regular - Pain: Per pain med recs - Urinary: No urinary catheter. - Disposition: Pending, likely today Active issues PT/OT Pain control Disposition planning Comorbidities present on admission Past Medical History: Diagnosis Date Anxiety 03/25/2021 Bursitis Trochanteric Bilateral 10/24/2006 Cancer Colon Family History Depression Anxiety Dilated Aortic Root (HCC) 01/26/2018 Gastroesophageal Reflux Disease Hernia Hiatal Hypercholesterolemia Hypothyroidism Polyp Colon Polyp Colon Hyperplastic Tuberculosis Personal History as a child From 6am-6pm Tuesday-Tuesday, please contact [facility] at [phone] with any questions regarding this patient. If overnight [phone] or any time on weekends, please contact the Orthopedic Surgery house resident credit union field examiner at [phone]. Margareth Minor MD PGY-3, Orthopedic Surgery OTS-1 Service SAW OPERATOR * Xavier Duncan P.T., D.P.T. - 01/18/2024 11:29 AM CST Physical Therapy Inpatient Treatment Note SUBJECTIVE Patient's Name: Shreya Jasso Ignashev Referring/Attending: Brock Milton M.D. Medical Diagnosis: Aftercare Total Knee Arthroplasty [Z47.1, Z96.659] Pain Knee Left [M25.562] Reason for Referral: PT Evaluate and Treat PT - Ortho Onset Date: 01/16/24 Payor: [place] / Plan: [place] OPEN ACCESS / Product Type: PPO / History of Present Illness: Right TKA Family/Caregiver Present: No Patient Comments: Patient mentions having increased discomfort of the left thigh, which she feels is limiting her mobility a bit today. Precautions Weight Bearing Status: Weight bearing as tolerated left lower extremity. Other Precautions: aggressive knee ROM in CPM machine--0-110 degrees up to 20 hours per day as tolerated OBJECTIVE Shreya's NOHARM modalities were used during their therapy session. Treatment consisted of: Bed Mobility - Sit to Supine Level of Assistance: Supervision/Set-up, Modified Independent Device: Head of bed elevated Stand to Sit Transfers Transfer Surface: Bed Transfer Equipment: Front wheeled walker, Gait belt Level of Assistance: Modified independent, Supervision/set-up Assessment/Delivery: Assessed Gait Assessment/Training Distance (m): 10 m Surface: Even Device: Gait belt, Front-wheeled walker # of Assistants: 1 Level of Assistance: Modified Independent, Supervision/Set-up Quality/Pattern: Antalgic, Guarding Patient was left in bed at end of session with call light in reach, all needs met and questions answered. Outcome Measures [facility] Inpatient Short Form: -[facility] Basic Mobility (V.2) How much help from another person do you currently need???If the patient hasn't done an activity recently, how much help from another person do you think he/she would needif he/she tried? 1. Turning from your back to your side while in a flat bed without using bedrails?: None 2. Moving from lying on your back to sitting on the side of a flat bed without using bedrails?: None 3. Moving to and from a bed to a chair (including a wheelchair)?: A Little 4. Standing up from a chair using your arms (e.g., wheelchair, or bedside chair)?: A Little 5. To walk in hospital room?: A Little 6. Climbing 3-5 steps with a railing?: A Little AM-[facility] Basic Mobility (V.2) Raw Score: 20 -[facility] Basic Mobility (V.2) Standardized Score: 43.99 Interpretation: Clinicians answer the -[facility] Inpatient Short Form based on observed patient activity and/or clinical judgement (ie. patient can be scored without physically performing each activity) Based on scoring guidelines using the raw score value: Those going to home had an average score at or above 18 Those going to facility had an average score at or below 17 Assessment Discharge Therapy Needs - PT: Ongoing skilled physical therapy Skilled therapy can include physical therapy provided by home health, outpatient clinic, or a post-acute facility. The location of these services is determined by the patient's care team in partnership with patient/family. Barriers to Discharge Home: None From a physical therapy perspective, the level of care above has been recommended for Ms. Romero Douglas after hospital discharge. This level of care is based on her functional abilities during today's session. This may change throughout the hospital course and will be updated as appropriate. Clinical Impression of today's session: The patient continues to do well with transfers and mobility despite her increased discomfort today. The patient plans to mobilize to tolerance throughout the day, and would appreciate follow-up visit from therapy tomorrow to further prepare for discharge from hospital. Rehab potential: Ms. Romero Douglas has potential to achieve established physical therapy goals within the time frame outlined below. Progress: Progressing toward goals Functional Goals and Timeframes: PT Inpatient Goals PT Goal #1: Patient will perform bed mobility including supine <> sit transition without use of special bed features modified independently to demonstrate progress toward functional baseline. PT Goal #1 Status: Achieved PT Goal #2: Patient will demonstrate lhx-gi-[id number] transfers with the least restrictive gait aid andmodified independence to demonstrate progress toward functional baseline. PT Goal #2 Status: Achieved PT Goal #3: Patient will ambulate 50 meters with the least restrictive gait aid and modified independence or better while executing the task with good safety awareness, stability, and functional strength to demonstrate progress toward functional baseline. PT Goal #3 Status: Achieved PT Goal #4: Patient will be able to ascend/descend 1 platform step with a front wheeled walker and supervision while executing the task with good safety awareness, stability, and functional strength to demonstrate ability to access home environment and progress toward functional baseline. PT Goal #4 Status: Ongoing Plan Patient agrees with the plan of care and goals. Treatment Plan: Plan: Continue with current plan PT Frequency: PT Amount: 1 visit per day PT Frequency: 3 times per week PT Inpatient Duration : Until goals are met or hospital discharge Requires Inpatient Follow-Up: Yes PT - Next Inpatient Appointment: 01/19/24 Treatment interventions may include: Treatment/Interventions: Therapeutic exercise, Therapeutic functional activity, Neuromuscular re-education, Gait training, Self-care/home management Billing: Time Spent with Patient Therapeutic Interventions Therapeutic Activity (min): 18 min Time Tracking Total Timed Units (min): 18 min Total Treatment Time (min): 18 min Xavier Duncan P.T., D.P.T. SAW OPERATOR * Margareth Minor M.D. - 01/18/2024 6:39 AM CST OTS 1 Progress Note Hospital Admission Day: 01/16/2024 Postoperative Day: 2 Procedure: L knee open lysis of adhesions, polyethylene exchange (01/15) SUBJECTIVE No acute events overnight. AFVSS. Pain is well controlled. Tolerating PO intake. Denies any chest pain, shortness of breath, or calf pain. Remains in CPM machine. Remains on ancef and rifAMPin was added this AM per ID recs. Ambulating 75 m with PT and doing stairs. Pain med is following for pain control - epidural catheter removed. OR Cx (01/15): MSSA VITALS Temperature: [36.4 ??C-36.9 ??C] 36.9 ??C Heart Rate: [68-86] 69 Resp Rate: [12-18] 15 Blood Pressure: (142)/(69) 142/69 SpO2: [90 %-95 %] 93 % Pulse Rate: [68-80] 70 PHYSICAL EXAM General: Awake, alert, no acute distress. Heart: Regular Rate. Extremities generally warm and well-perfused. Lungs: Non labored breathing, equal chest rise. Skin: No signs of breakdown from surgical positioning. MUSCULOSKELETAL: LEFT Lower Extremity: Overall appearance: Dressings are clean, dry, and intact. Compartments are soft. Calves soft and non-tender. Remains on CPM machine. Sensation: SILT at L2 - S1 dermatomes and superficial and deep peroneal, sural, saphenous, tibial distributions. Motor: Firing TA, GSC, EHL, FHL with 5/5 strength Circulation: No cyanosis noted. 2+ DP pulse DIAGNOSTICS Lab Results Component Value Date WBC 7.9 01/17/2024 HGB 9.5 (L) 01/17/2024 HCT 30.6 (L) 01/17/2024 MCV 89.5 01/17/2024 PLT 250 01/17/2024 Lab Results Component Value Date NA 140 01/17/2024 CL 103 01/17/2024 CO2 29 12/15/2015 Lab Results Component Value Date CREATININE 0.71 01/17/2024 Lab Results Component Value Date INR 1.1 07/03/2023 PT 11.7 07/03/2023 ASSESSMENT / PLAN IMPRESSION/REPORT/PLAN #1 Aftercare Total Knee Arthroplasty #2 Pain Knee Left #1 Status post L knee open lysis of adhesions, poly exchange #2 L knee prosthetic joint infection 73 year old female who is status post the above procedures. She is doing well postoperatively. She is neurovascularly intact. Remains on CPM machine. OR cultures are positive for MSSA. Pending final ID plan. - Antibiotics: Standing ancef q8h, rifAMPin 300 mg bid pending ortho ID recs - OR Cx (01/15): MSSA - Activity: LLE WBAT - Consults: HIM, PT/OT, SW - DVT Prophylaxis: SCD's and early mobilization. Aspirin 81 mg BID. - Dressing: C/D/I - Diet: Adult Diet Regular - Pain: Per pain med recs (level 1 IV fentaNYL HEAD PORTER) - Urinary: No urinary catheter. - Disposition: Pending Active issues PT/OT Pain control Disposition planning Comorbidities present on admission Past Medical History: Diagnosis Date Anxiety 03/25/2021 Bursitis Trochanteric Bilateral 10/24/2006 Cancer Colon Family History Depression Anxiety Dilated Aortic Root (HCC) 01/26/2018 Gastroesophageal Reflux Disease Hernia Hiatal Hypercholesterolemia Hypothyroidism Polyp Colon Polyp Colon Hyperplastic Tuberculosis Personal History as a child From 6am-6pm Tuesday-Tuesday, please contact [facility]-1 at [phone] with any questions regarding this patient. If overnight [phone] or any time on weekends, please contact the Orthopedic Surgery house resident credit union field examiner at [phone]. Margareth Minor MD PGY-3, Orthopedic Surgery OTS-1 Service SAW OPERATOR SAW OPERATOR * Silvana Marrufo M.D. - 01/18/2024 6:01 AM CST Infectious Diseases Orthopedic Surgery [facility] Consulting Service Progress Note SUBJECTIVE REASON FOR CONSULT We are following Ms. Romero Douglas for s/p left tka lysis of adhesions and poly exchange for stiffness, intraop cultures positive for GPCs, no significant concern for infection intraop, recs on antibiotics, etc. EVENTS OVER THE PAST 24 HOURS No acute event overnight. Afebrile. OBJECTIVE PHYSICAL EXAMINATION Vital Signs: I have reviewed the current vital sign data as applicable General: No acute distress, laying comfortably in bed Skin: Warm, dry and normal color Musculoskeletal: Noted with left lower extremity that is wrapped from his thigh down to his foot. Cap refill less than 2 seconds all toes. Neurological: Alert and oriented x3, no neurological deficits Psychiatric: Normal mood and affect DIAGNOSTICS I have reviewed diagnostics including available labs, microbiology and radiology. Microbiology Susceptibility data from last 90 days. Collected Specimen Info Organism 01/16/24 Knee, Left Gram positive coccus resembling staphylococcus 01/16/24 Knee, Left Gram positive coccus resembling staphylococcus 01/16/24 Knee, Left S aureus complex ASSESSMENT / PLAN Incidental findings of positive culture MSSA from post lysis of adhesions of the left knee on 01/16/2024 Status post left primary total knee arthroplasty on 09/12/2023 Left bicondylar tibial plateau fracture status post left knee external fixation, followed by external fixation adjustment and ORIF tibial tubercle on 07/13/2023 Hypothyroidism on levothyroxine Other comorbidities: mitral regurgitation, hyperlipidemia, depression, anxiety disorder, gastroesophageal reflux disease In summary, 73 yo female with history of left bicondylar tibial plateau fracture status post left knee external fixation, followed by external fixation adjustment and ORIF tibial tubercle on 07/13/2023. She subsequently underwent left primary total knee arthroplasty as part of fracture stage treatment on 07/13/2023. The patient has had chronic knee pain and stiffness more than 5 months. Intraoperatively, although there was no evidence of gross infection, there was a significant amountof scar tissue. Intraoperative cultures came back positive for MSSA. Her chronic pain and stiffness could be explained by infectious process although she has not have typical signs and symptoms such as swelling, erythema, wound dehiscence, sinus tracts, drainage, or other systemic symptoms including fever, chills, sweats. We need IV therapy with ceFAZolin for 6 weeks, followed by chronic suppression given retained prostheses. We will recommend adding rifAMPin considering biofilm penetration. As the patient has been onlevothyroxine for hypothyroidism, we recommend to monitor TSH in 4 weeks and adjust the dose of levothyroxine if needed. RECOMMENDATIONS: Recommend to switch from cefazolin to ceftriaxone 2 g IV once daily Start RifAMPin 300 mg PO bid today As the patient has been on levothyroxine for hypothyroidism, we recommend to monitor TSH in 4 weeksand adjust the dose of levothyroxine if needed. The plan is to continue ceftriaxone for total of 6 weeks (stop date: 02/27/2024), followed by chronic suppression along with rifampin for a total of 3 months (stop date: 03/18/2024) Orthopedic ID will follow-up at the end of IV therapy Treatment plan reviewed with Ms. Romero Douglas, who expressed understanding. All questions answered to patient's satisfaction. We will sign off. Please page Ortho [facility]-ID service pager at [phone] with any questions. Discussed with Infectious Diseases [employer], Dr. Corie Dempsey. Silvana Marrufo M.D. Orthopedic Infectious Diseases Fellow Primary service: ID Primary Service Options: Please consult Care Management for dismissal planning and Please arrange PICC catheter prior to discharge INFECTIOUS DISEASES THERAPY RECOMMENDATIONS Antimicrobial plan: Patient will stay on the following antimicrobials: Ceftriaxone 2 gm IV every 24 hours Tentative stop date stop date: 02/27/2024; final stop date to be determined at follow up visit Rifampin 300 mg p.o. b.i.d. stop date: 03/18/2024; final stop date to be determined at follow up visit Lab monitoring while on antimicrobial therapy: Yes, weekly on antibiotics Complete blood count withdifferential, Alanine aminotransferase (ALT), Creatinine, and Alkaline phosphatase. Please fax to division of Infectious Diseases OPAT monitoring program at [phone]. Should patient be enrolled in OPAT/COPAT program: Yes- Adult OPAT Infectious Diseases follow-up: Follow-up: Follow up with orthopedic infectious diseases on 02/27/2024. Priorities for scheduling: Coordination of care: Coordinate with orthopedic team visit. Central catheter management at end of treatment: Central catheter removal decision will be made at follow-up appointment but an appointment for PICC removal should be made for AFTER ID clinical appointment. Cosigned by Corie Dempsey M.D. at 01/18/2024 2:05 PM FRET SAW OPERATOR SAW OPERATOR SAW OPERATOR Associated attestation - Corie Dempsey M.D. - 01/18/2024 2:05 PM FRET SAW OPERATOR reviewed Dr. Marrufo's note. I agree with his findings and plan. We have recommended iv cefTRIAXone and oral rifAMPin on dc with orid follow up at 6 weeks to help transition to oral suppression therapy (cefadroxil). * Melissa Jauregui R.N. - 01/17/2024 11:06 AM CST Post Anesthesia Assessment Note Patient: Shreya Douglas General Info Post-procedure day: 1 Follow-up type: inpatient regional Regional Block Information Description/location: lumbar epidural Opioid/adjunct: hydromorphone 10 mcg/mL Rate (mL/hour): 10 Overall Comments Seen patient was going to redress the epidural site but noticed that the epidural had slipped out further than was told and it was sitting under the skin and not in the epidural space. So finished removing the epidural at this time. Encouraged her to be asking for oral pain medications as needed for pain. SAW OPERATOR * Gabriel Dimas, Solange.D., R.Ph., BCPS - 01/17/2024 11:05 AM CST Pain Management Pharmacist Progress Note SUBJECTIVE Shreya is a 73 y.o. female, who is being followed by the Inpatient Pain Service for management of epidural that was placed on 01/16/2024 Outpatient Opioid Meds as of 01/17/2024 No active outpatient opioid meds Allergies Allergen Reactions Chlorine Rash OBJECTIVE Lab Results Component Value Date CREATININE 0.71 01/17/2024 EGFR 90 01/17/2024 BUN 14 01/17/2024 Lab Results Component Value Date ALT 11 12/06/2023 AST 20 12/06/2023 ALKPHOS 108 (H) 12/06/2023 ASSESSMENT / PLAN Assessment Pharmacotherapy was reviewed today with a patient-centered approach for indication, effectiveness, safety and convenience. Pain scores ranging 3 to 7/10 Baseline OME/day: 0 OME OME use in last 24 hours: 170 OME Comorbidities that may require dose/route of administration adjustment: none PLAN Recommendations: Epidural was discovered to be out of the epidural space upon inspection by the pain nurses this morning, it was subsequently removed Opioid: Continue Level 1 IV fentaNYL HEAD PORTER Promptly initiate oral opioids. Recommend oxyCODONE 5mg PO every 4 hours PRN for moderate pain or 10 mg PO every 4 hours PRN for severe pain. Ketamine: If pain worsens, may consider providing IV ketamine boluses of 5mg for breakthrough pain Acetaminophen: Continue 1000mg PO every 6 hours scheduled NSAIDs: Continue ibuprofen. Consider modifying regimen to provide 400 mg PO every 6 hours scheduled Antidepressants/Anticonvulsants: If patient develops troublesome neuropathic pain, may consider initiating a gabapentinoid or DULoxetine or amitriptyline for ongoing management of neuropathic pain Skeletal Muscle Relaxants: Not indicated at this time Topical co-analgesics Topical Triple Cream (amitriptyline/ketamine/gabapentin) applied twice daily Lidocaine 5% patch applied once daily Non-pharmacologic recommendations for improved pain control: Heat and/or Ice packs Diaphragmatic breathing Integrative medicine (massage therapy, music therapy, aroma therapy, acupuncture) A prescription for naloxone should be provided at dismissal if patient is discharged with a prescription for an opioid analgesic. Monitor closely for signs/symptoms of opioid overdose (sedation, excessive drowsiness, respiratory depression) Plan was collaboratively discussed with the Inpatient Pain Service. Gabriel Dimas Pharm.D., R.Ph., [facility] Pain Management Pharmacist Pager: [phone] SAW OPERATOR * Shreya Dewey R.N. - 01/17/2024 7:45 AM CST Post Anesthesia Assessment Note Patient: Shreya Douglas General Info Post-procedure day: 1 Follow-up type: inpatient regional Regional Block Information Description/location: lumbar epidural (L4-5 (11 )) Opioid/adjunct: hydromorphone 10 mcg/mL Rate (mL/hour): 10 Multi-modal Analgesics: Acetaminophen: yes Gabapentinoids: no NSAIDs: yes Opioids: yes (fentanyl HEAD PORTER) Assessment: General assessment: uncomplicated postoperative course Side effects and complications: no complications Catheter taped at (cm at skin): 9 (out 2 cm from placement) Catheter assessment: clean, intact, non tender (per CRYSTALIZER) Signs/symptoms of local anesthetic toxicity: none Pain Assessment: Current static pain scale: 8/10 Anticoagulation Therapy aspirin Patient Care Plan: continue current management per plan/IPS protocol Overall Comments We will plan to remove epidural Tuesday[place] [phone] with questions or concerns. Medication plan listed above has been discussed with and reviewed by Pain ManagementPharmacist. Cosigned by Eva Srivastava APRN, C.N.PPrakash, M.S.N. at 01/17/2024 11:41 AM FRET SAW OPERATOR SAW OPERATOR SAW OPERATOR SAW OPERATOR * Margareth Minor M.D. - 01/17/2024 4:26 AM CST OTS 1 Progress Note Hospital Admission Day: 01/16/2024 Postoperative Day: 1 Procedure: L knee open lysis of adhesions, polyethylene exchange (01/15) SUBJECTIVE No acute events overnight. AFVSS. Pain is well controlled. Tolerating PO intake. Denies any chest pain, shortness of breath, or calf pain. Remains in CPM machine. OR Cx (01/15): Gram positive cocci VITALS Temperature: [35 ??C-36.6 ??C] 36.6 ??C Heart Rate: [60-96] 73 Resp Rate: [8-18] 13 Blood Pressure: (118-184)/(53-104) 118/66 SpO2: [91 %-100 %] 91 % Flow Rate (L/min): [2 L/min] 2 L/min Pulse Rate: [60-89] 88 PHYSICAL EXAM General: Awake, alert, no acute distress. Heart: Regular Rate. Extremities generally warm and well-perfused. Lungs: Non labored breathing, equal chest rise. Skin: No signs of breakdown from surgical positioning. MUSCULOSKELETAL: LEFT Lower Extremity: Overall appearance: Dressings are clean, dry, and intact. Compartments are soft. Calves soft and non-tender. Remains on CPM machine. Sensation: SILT at L2 - S1 dermatomes and superficial and deep peroneal, sural, saphenous, tibial distributions. Motor: Firing TA, GSC, EHL, FHL with 5/5 strength Circulation: No cyanosis noted. 2+ DP pulse DIAGNOSTICS Lab Results Component Value Date WBC 7.9 11/25/2023 HGB 11.9 11/25/2023 HCT 38.1 11/25/2023 MCV 89.0 11/25/2023 PLT 328 11/25/2023 Lab Results Component Value Date NA 142 12/06/2023 CL 104 12/06/2023 CO2 29 12/15/2015 Lab Results Component Value Date CREATININE 0.84 12/06/2023 Lab Results Component Value Date INR 1.1 07/03/2023 PT 11.7 07/03/2023 ASSESSMENT / PLAN IMPRESSION/REPORT/PLAN #1 Status post L knee open lysis of adhesions, poly exchange #1 Aftercare Total Knee Arthroplasty 73 year old female who is status post the above procedures. She is doing well postoperatively. She is neurovascularly intact. Remains on CPM machine. OR cultures are positive for gram positive cocci. - Antibiotics: Standing ancef q8h pending ortho ID recs - OR Cx (01/15): Gram positive cocci - Activity: LLE WBAT - Consults: HIM, PT/OT, SW - DVT Prophylaxis: SCD's and early mobilization. Aspirin 81 mg BID. - Dressing: C/D/I - Diet: Adult Diet Regular - Pain: Scheduled acetaminophen, oxycodone PRN - Urinary: No urinary catheter. - Disposition: Pending Active issues PT/OT Pain control Disposition planning Comorbidities present on admission Past Medical History: Diagnosis Date Anxiety 03/25/2021 Bursitis Trochanteric Bilateral 10/24/2006 Cancer Colon Family History Depression Anxiety Dilated Aortic Root (HCC) 01/26/2018 Gastroesophageal Reflux Disease Hernia Hiatal Hypercholesterolemia Hypothyroidism Polyp Colon Polyp Colon Hyperplastic Tuberculosis Personal History as a child From 6am-6pm Tuesday-Tuesday, please contact OTS-1 at [phone] with any questions regarding this patient. If overnight [phone] or any time on weekends, please contact the Orthopedic Surgery house resident credit union field examiner at [phone]. Mragareth Minor MD PGY-3, Orthopedic Surgery OTS-1 Service SAW OPERATOR SAW OPERATOR * Hallie Vázquez M.SBar, R.N. - 01/16/2024 2:48 PM CST Post Anesthesia Assessment Note Patient: Shreya Douglas General Info Post-procedure day: 0 (day of procedure) Follow-up type: inpatient regional Regional Block Information Description/location: thoracic epidural (L4-5 (11 )) Opioid/adjunct: hydromorphone 10 mcg/mL Rate (mL/hour): 10 Assessment: General assessment: uncomplicated postoperative course Side effects and complications: no complications Catheter assessment: clean, intact, non tender (per CRYSTALIZER) Signs/symptoms of local anesthetic toxicity: none Site Assessment: Sensory: normal-preoperative baseline Motor: decreased motor strength Dermatome level: Laterality: left Pain Assessment: Current static pain scale: 8/10 Patient Care Plan: continue current management per plan/IPS protocol Overall Comments Upon arrival, patient reported pain score 8/10. Dr. Flores was present at bedside and bolused epidural. Patient's pain level at 1443 had decreased to 5/10 and she reports pain level is tolerable[place] [phone] with questions or concerns. SAW OPERATOR * Titus Ackerman, Pharm.D., R.Ph. - 01/16/2024 11:14 AM CST Images from the original note were not included. Admission Medication History Note Adherence issues: No concerns Medication list source: Patient and Pharmacy or dispense records Medication related information: none Prior to Admission Medications Med List Status: Pharmacy/RN Complete Set By: Titus Ackerman, Pharm.D., R.Ph. at 01/16/2024 11:14 AM Taking? Last Dose Informant Start Date End Date LT acetaminophen (TYLENOL) 500 mg tablet -- -- 07/15/23 -- Take 2 tablets (1,000 mg total) by mouth every 6 (six) hours as needed for pain. buPROPion XL (Wellbutrin XL) 300 mg 24 hr tablet -- -- 12/06/23 -- Take 1 tablet (300 mg total) by mouth every morning. calcium citrate-vitamin D3 (CITRACAL+D) 315 mg-5 mcg (200 Unit) per tablet -- -- 07/15/23 -- Take 2 tablets by mouth daily with breakfast. cetirizine (ZyrTEC) 10 mg tablet -- -- -- -- Take 10 mg by mouth at bedtime. Titrates to 40 mg at bedtime depending on skin condition EPINEPHrine (EpiPen) 0.3 mg/0.3 mL injection syringe -- -- 09/18/21 -- Inject 0.3 mL (0.3 mg total) intramuscularly as needed for anaphylaxis. Inject into the thigh. ibuprofen 800 mg tablet -- -- 11/24/23 -- Take 1 tablet (800 mg total) by mouth 3 (three) times a day as needed for pain (pain. take with food.). levothyroxine 100 mcg tablet 01/16/2024 at Morning -- 12/06/23 -- Take 1 tablet (100 mcg total) by mouth daily. sqndizlrcqln-sabd-XZ 18-400 mg-mcg tablet -- Self -- -- Take 2 tablets by mouth daily. polyethylene glycol (MIRALAX) 17 gram powder packet -- -- 07/15/23 -- Take 1 packet by mouth daily as needed for constipation. Dissolve each 17 g dose in 240 mLs (8 ounces) of beverage. pravastatin (PravachoL) 80 mg tablet -- -- 12/06/23 -- Take 1 tablet (80 mg total) by mouth at bedtime. sennosides-docusate sodium (SENOKOT-S) 8.6-50 mg per tablet -- -- 07/15/23 -- Take 1 tablet by mouth at bedtime as needed for constipation. triamcinolone (Kenalog) 0.1 % cream -- -- -- -- Apply 1 Application topically 2 (two) times a day as needed for irritation or rash. Apply to affected area. SAW OPERATOR documented in this encounter Procedure Notes * Jarocho Sim R.N. - 01/19/2024 11:00 AM CSTAssociated Order(s): Perform central line painting machine operator: Site care Perform central line painting machine operator: Site care Performed by: Jarocho Sim R.N. Authorized by: Brock Milton M.D. PICC line placed 01/18/2024 @ 2029. Dressing remains dry, intact, and no concerns noted. PICC line flushes well with positive blood return. Site care not completed d/t recent line placement and full intactness of dressing. Patient in agreement and requesting change with next infusion therapy. SAW OPERATOR * Can Crockett R.N. - 01/18/2024 8:30 PM CSTAssociated Order(s): Place peripherally inserted central catheter (PICC) Place peripherally inserted central catheter (PICC) Performed [...] your catheter insertion site for securement, stabilization, andsealant. The purpose of the tissue adhesive is to reduce bleeding, reduce catheter movement/dislodgement, and protect the site from contamination. The tissue adhesive takes the place of a chlorhexidine gluconate (CHG) disk or dressing and also any other devices used for securement. Tissue adhesive will remain attached to the skin surface until natural cellular regeneration occurs(approx. 5-7 days). It is intended to be used with a transparent film dressing. Site care is recommended every 7 days. If tissue adhesive is not reapplied at the time of site care, please assess, clean, and dress the site per institutional guidelines. Residual tissue adhesive on the catheter tubing or skin during the dressing change does NOT need rachna removed. If needed, any medical adhesive remover product may be used to release the adhesive from the skin. http://[employer]!/products/secureportiv SAW OPERATOR documented in this encounter Consult Notes * Katty Elizabeth M.S.W., JaydenS.Tomas. - 01/18/2024 11:24 AM CSTAssociated Order(s): IP CONSULT TO ADDICTION; IP CONSULT TO CARE MANAGEMENT SUBJECTIVE Carpenter Packing met with patient over the phone to provide a supportive visit, complete a psychosocial, and assist with discharge needs. Introduced self and reviewed role of inpatient Social Work, including legal responsibility as a mandated underwriter. Patient expressed understanding of the purpose ofthis visit and was open to having a conversation. Reviewed Psychosocial assessment completed by Charisse Rowley L.G.S.W., M.S.W on 07/06/2023. Patient indicates that this information remains accurate unless otherwise noted. Please refer to that document for further psychosocial details. Patient is [facility] [address] [address]. Explaining she fell in September and had surgery. Patient shared that she does now have a walker, walking sticks and cane. Patient shares her mood is up and down. Patient acknowledges this as being normal given the situation and feels she overall is coping well. Patient reports having a diagnosis of depression and shares that she takes medications to manage her symptoms. Patient declines concerns. Patient reports drinking alcohol. distillery worker general completed an audit C. Patient score low risk. Refer to chart for further information. Patient denies current concerns regarding mental health, suicidal ideation/intent, abuse/neglect or substance use. A list of infusion options (that they geographically reside or requested) has been verbally reviewed with patient. Disclaimers: Financial disclosure provided informing patient of our ownership and financial relationship of the [facility] beds, home health, and hospice agencies. Reviewed [employer] insurance coverage and provided in-network options. Patient shared a preference for [facility] at home. Patient shared that she would prefer to dolab draws closer to home. distillery worker general shard that she will do some searching and get back to patient. Patient anticipates discharging home with Iv antibiotics once medically ready. Patient reports no further questions currently. Encouraged patient to contact Carpenter Packing should additional needs arise. OBJECTIVE Patient was engaged in conversation over the phone. Pursued infusion companies- [facility]- Accepted and selected Option ASSESSMENT / PLAN ASSESSMENT Patient appears to be coping with her current hospitalization. Patient appears to have an understanding of her medical condition and is planning for eventual discharge. PLAN Patient will discharge home with home infusions. Individuals have been identified who are willing and able to learn the infusion technique. Dialysis/Infusion - Admitted Since 01/16/2024 Service Provider Services Address Phone Fax Patient Preferred [facility] [id number] [facility] [id number] -- Contact: Intake NURSING: - Adjust the dosing schedule to accommodate home infusion. - Fax any prescriptions 24 hours prior to discharge. - Complete documentation in the Discharge Navigator including Nursing Report Info and Facility/NextLevel of Care Info - Call report and arrange for patient???s first visit. - Be sure the patient receives a dose prior to dismissal on the day of discharge. - Send After Visit Summary, include IV access information and current labs and required packet of dismissal information with patient, including advance directive. PRIMARY SERVICE: - Prescription needs to be completed and faxed to the infusion provider at least 24 hours prior to dismissal. - Prescription needs to include: - Orders for IV meds with a stop date - Normal Saline/Heparin flushes and site care for IV access The following information will need to be included in the After Visit Summary: - Orders for IV meds with a stop date - Normal Saline/Heparin flushes and site care for IV access - Recommendations for any lab work while on IV therapy - Discontinue IV access at completion of therapy - Contact the patient's primary care provider for writing IV orders, monitoring of labs/levels and any other continuing care needs. A copy of the After Visit Summary needs to be sent there as well. Site care and blood draws will be managed by Outpatient Facility: [facility] Address: [address] [place] [phone] Contact: Intake They will provide IV access care for this patient. NURSING: - Complete documentation in the Discharge Navigator including Nursing Report Info and Facility/NextLevel of Care Info - Call report and arrange for the patient???s first visit. Patient would prefer at [id number] am - Send After Visit Summary, include IV access information and current labs and required packet of dismissal information with patient, including advance directive. PRIMARY SERVICE: - Please provide an order for outpatient IV access site care. - Communicate with the patient???s local primary care provider by telephone for writing of outpatient IV orders. This needs to be done to help prevent discharge delays. A copy of the After Visit Summary needs to be sent there as well. Social Work : -Will continue to follow the patient. Chico Mendoza, Chanell.C.S.W. 01/18/24 SAW OPERATOR * Xavier Duncan PPrakashTPrakash, D.P.T. - 01/17/2024 12:23 PM CST Physical Therapy Inpatient Evaluation/Treatment SUBJECTIVE Patient's Name: Shreya Douglas Referring/Attending Provider: Brock Milton M.D. Medical Diagnosis: Aftercare Total Knee Arthroplasty [Z47.1, Z96.659] Pain Knee Left [M25.562] Reason for Referral: PT Evaluate and Treat PT - Ortho Onset Date: 01/16/24 Payor: [place] / Plan: [place] OPEN ACCESS / Product Type: PPO / PERTINENT MEDICAL / SURGICAL HISTORY: Patient Active Problem List Diagnosis Depression Major Hypercholesterolemia Regurgitation Mitral Anxiety Generalized Disorder Gastroesophageal Reflux Disease NOS Family History Coronary Artery Disease Hypothyroidism Polyp Colon Overweight Body Mass Index 25-29.9 Adult Fracture Tibial Plateau Closed Initial Left Fracture Tibia Bicondylar Nondisplaced Closed Subsequent With Malunion Left Aftercare Total Knee Arthroplasty Pain Knee Left Past Surgical History: Procedure Laterality Date ARTHROPLASTY REPLACEMENT TOTAL KNEE Left 09/12/2023 Procedure: ARTHROPLASTY REPLACEMENT TOTAL KNEE, REMOVAL OF HARDWARE LEFT TIBIA; Surgeon: Brock Milton M.D.; Location: [facility] COLONOSCOPIC POLYPECTOMY N/A 12/14/2013 Colonoscopic polypectomy COLONOSCOPY 09/26/2014 ten year follow up ECHO VASCULAR 10/17/2014 showed EF of 67%; borderline aortic root dilatation and mild aortic regurgitation. EXTERNAL FIXATION APPLICATION LOWER EXTREMITY Left 07/04/2023 Procedure: APPLICATION EXTERNAL FIXATION LOWER EXTREMITY, KNEE SPANNING; Surgeon: Jaxson Rodriguez M.D.; Location: [facility] OPEN REDUCTION INTERNAL FIXATION - TIBIAL PLATEAU Left 07/13/2023 Procedure: OPEN REDUCTION, INTERNAL FIXATION TIBIA LEFT, ADJUSTMENT OF EXTERNAL FIXATOR.; Surgeon: Brock Milton M.D.; Location: [facility] UPPER GASTROINTESTINAL ENDOSCOPY 10/04/2016 History of Present Illness: Right TKA Family/Caregiver Present: No Patient/Caregiver Goals: Return home when able. Patient Comments: Patient rates her pain 2/10 and is happy with how well she is doing after her surgery. Precautions Weight Bearing Status: Weight bearing as tolerated left lower extremity. Other Precautions: aggressive knee ROM in CPM machine--0-110 degrees up to 20 hours per day as tolerated Fall Risk (65 and older) Fall in the last 12 months: Yes Did you have an injury with the fall?: Yes Are you fearful of falling?: No Home Living and Equipment: Lives with: Spouse/Significant other Receives help from: can assist as needed Type of Home: House Home Layout: One Level + basement Home Access: 12 steps Bathroom Accessibility (basement): Accessible via wheelchair Shower: Walk in shower in basement Shower stool (no back). No grab bars. Toilet: Comfort Toilet Level: Basement/lower level Toilet safety frame Assistive Device Owned: Front wheeled walker, rented manual wheelchair. Adjustable bed Adaptive Equipment Owned: Peripheral Equipment Operator Prior Level of Function and Mobility: Basic Activities of Daily Living: Independent Instrumental Activities of Daily Living: Overall independent. Spouse can assist with cooking, cleaning, laundry, and transportation. Functional Mobility: Independent prior to injury. Modified independent prior to this hospitalization with a walker or manual wheelchair. 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 Cognition Orientation: Oriented X4 General ROM / Strength Screening ROM - Upper Extremity Screen: Addressed, no concerns noted ROM - Lower Extremity Screen: Impaired left Strength - Upper Extremity Screen: Addressed, no concerns noted Strength - Lower Extremity Screen: Impaired left Bed Mobility - Supine to Sit # of Assistants: 1 Level of Assistance: Independent, Supervision/Set-up Device: None Bed Mobility - Sit to Supine # of Assistants: 1 Level of Assistance: Independent, Supervision/Set-up Device: None Sit to Stand Transfers # of Assistants: 1 Transfer Surface: Bed, Toilet/Commode Transfer Equipment: Gait belt, Front wheeled walker Level of Assistance: Modified Independent, Supervision/set-up Assessment/Delivery: Assessed Stand to Sit Transfers # of Assistants: 1 Transfer Surface: Bed, Toilet/Commode Transfer Equipment: Front wheeled walker, Gait belt Level of Assistance: Modified independent, Supervision/set-up Assessment/Delivery: Assessed Gait Assessment/Training Distance (m): 75 m Surface: Even Device: Gait belt, Front-wheeled walker # of Assistants: 1 Level of Assistance: Modified Independent, Supervision/Set-up Quality/Pattern: Antalgic, Guarding Stairs/Curb # Stairs: 9 Rails: 1 Device: Gait belt, Single point cane # of Assistants: 1 Level of Assistance: Contact guard assistance Stair Navigation Pattern-Ascending: Step-to pattern Stair Navigation Pattern-Descending: Step-to pattern Patient's nurse was contacted and patient's status was discussed, Discussed patient's care with OT Patient was left in bed at end of session with call light in reach, all needs met and questions answered. Outcome Measures [facility] Inpatient Short Form: -[facility] Basic Mobility (V.2) How much help from another person do you currently need???If the patient hasn't done an activity recently, how much help from another person do you think he/she would needif he/she tried? 1. Turning from your back to your side while in a flat bed without using bedrails?: None 2. Moving from lying on your back to sitting on the side of a flat bed without using bedrails?: None 3. Moving to and from a bed to a chair (including a wheelchair)?: A Little 4. Standing up from a chair using your arms (e.g., wheelchair, or bedside chair)?: A Little 5. To walk in hospital room?: A Little Interpretation: Clinicians answer the AM-PAC Inpatient Short Form based on observed patient activity and/or clinical judgement (ie. patient can be scored without physically performing each activity) Based on scoring guidelines using the raw score value: Those going to home had an average score at or above 18 Those going to facility had an average score at or below 17 Assessment Discharge Therapy Needs - PT: Ongoing skilled physical therapy (Return to outpatient PT after discharge from hospital.) Skilled therapy can include physical therapy provided by home health, outpatient clinic, or a post-acute facility. The location of these services is determined by the patient's care team in partnership with patient/family. Equipment Recommended - PT: Front-wheeled walker Barriers to Discharge Home: None Clinical Impression of today's session: Currently, patient presents with impairments including left knee discomfort following a surgical procedure resulting in the following functional deficits: Difficulty with functional mobility ADLs. The patient did well with all functional mobility tasks and did not require any physical assistance when performing them. She benefited from use of front wheeled walker with transfers and gait, and did well with use of a single-point cane when performing stairs. The patient request therapy to return tomorrow in an effort to continue improving her proficiency was stairs in preparation for discharge to home when medically ready. Rehab potential: Ms. Romero Douglas has Good potential to achieve established physical therapy goals within the time frame outlined below. Tiered PT Evaluation Codes: Comorbid Conditions: Mental health disorder, Obesity Personal Factors: Needs assistive device, Living situation, History of falls Examination elements: 1-2 Clinical Presentation: Evolving Clinical Decision Making: Low complexity clinical decision making Functional Goals: PT Inpatient Goals PT Goal #1: Patient will perform bed mobility including supine <> sit transition without use of special bed features modified independently to demonstrate progress toward functional baseline. PT Goal #1 Status: Achieved PT Goal #2: Patient will demonstrate nvd-qj-pkgio transfers with the least restrictive gait aid andmodified independence to demonstrate progress toward functional baseline. PT Goal #2 Status: Achieved PT Goal #3: Patient will ambulate 50 meters with the least restrictive gait aid and modified independence or better while executing the task with good safety awareness, stability, and functional strength to demonstrate progress toward functional baseline. PT Goal #3 Status: Achieved PT Goal #4: Patient will be able to ascend/descend 1 platform step with a front wheeled walker and supervision while executing the task with good safety awareness, stability, and functional strength to demonstrate ability to access home environment and progress toward functional baseline. PT Goal #4 Status: Progressing Plan Patient agrees with the plan of care and goals. Treatment Plan: Plan: Plan of care initiated PT Amount: 1 visit per day PT Frequency: 3 times per week PT Inpatient Duration : Until goals are met or hospital discharge Requires Inpatient Follow-Up: Yes PT - Next Inpatient Appointment: 01/18/24 PT Plan Comments: Progress independence with bed mobility, transfers, ambulation with least restrictive gait aid. Continue to assist with discharge planning as appropriate. Patient requests to trial stairs again. Treatment interventions may include: Treatment/Interventions: Therapeutic exercise, Therapeutic functional activity, Neuromuscular re-education, Gait training, Self-care/home management Billing: Time Spent with Patient Evaluations PT Eval - Low Complexity: 6 min Therapeutic Interventions Therapeutic Activity (min): 32 min Time Tracking Total Timed Units (min): 32 min Total Treatment Time (min): 38 min Xavier Duncan P.T., D.P.TPrakash SAW OPERATOR * Maura Kee O.T., O.TNancy - 01/17/2024 8:52 AM CST Occupational Therapy [facility] Inpatient Evaluation/Treatment By co-signing this note, the provider certifies the therapy being provided to this patient is reasonable and necessary for the diagnosis or treatment of this patient. SUBJECTIVE Patient's Name: Shreya Douglas Referring/Attending Provider: Brock Milton M.D. Reason for Referral: Occupational Therapy Evaluation [...] (10/17/2014); Upper gastrointestinal endoscopy (10/04/2016); Colonoscopy (09/26/2014); EXTERNAL FIXATION APPLICATION LOWER EXTREMITY (Left, 07/04/2023); open reduction internal fixation - tibial plateau (Left, 07/13/2023); ARTHROPLASTY REPLACEMENT TOTAL KNEE (Left, 09/12/2023); and ARTHROPLASTY REPLACEMENT TOTAL KNEE (Left, 01/16/2024). History of Present Illness: Shreya Douglas is a 73 y.o. female who was admitted to [facility] in [place] on 01/16/2024 for Aftercare Total Knee Arthroplasty [Z47.1, Z96.659] Pain Knee Left [M25.562]. Relevant Medical History: Status post L knee open lysis of adhesions, poly exchange Precautions Weight Bearing Status: Weight bearing as tolerated left lower extremity. Other Precautions: aggressive knee ROM in CPM machine--0-110 degrees up to 20 hours per day as tolerated Fall Risk (65 and older) Fall in the last 12 months: Yes Did you have an injury with the fall?: Yes Are you fearful of falling?: No Pain Assessment: Reports left knee discomfort but does not rate pain. Provided patient with ice. Subjective Comments: Patient greeted in bed and agreeable to therapy session. Patient/Caregiver Goals: Discharge home Home Living and Equipment: Lives with: Spouse/Significant other Receives help from: can assist as needed Type of Home: House Home Layout: One Level + basement Home Access: 12 steps Bathroom Accessibility (basement): Accessible via wheelchair Shower: Walk in shower in basement Shower stool (no back). No grab bars. Toilet: Comfort Toilet Level: Basement/lower level Toilet safety frame Assistive Device Owned: Front wheeled walker, rented manual wheelchair. Adjustable bed Adaptive Equipment Owned: Peripheral Equipment Operator Prior Level of Function and Mobility: Basic Activities of Daily Living: Independent Instrumental Activities of Daily Living: Overall independent. Spouse can assist with cooking, cleaning, laundry, and transportation. Functional Mobility: Independent prior to injury. Modified independent prior to this hospitalization with a walker or manual wheelchair. 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 Evaluation Assessment: STRENGTH: Upper extremities within functional limits RANGE OF MOTION: Upper extremities within functional limits BALANCE: Static Sitting: Good (Maintains balance without support) Dynamic Sitting: Good (Maintains balance without support) Static Standing: Good (Maintains balance without support) Dynamic Standing: Fair (Maintains balance with handheld assist) ACTIVITY TOLERANCE: Endurance: Tolerates 10-20 minutes of activity HEARING/VISION: Hearing: Hearing Intact Baseline Vision/Correction: Wears glasses all the time Outcome Measures: [facility] Inpatient Short Form: Putting on and taking off regular lower body clothing?: None Putting on and taking off regular upper body clothing?: None Taking care of personal grooming such as brushing teeth?: None Bathing (including washing, rinsing, drying)?: A Little Toileting, which includes using toilet, bedpan, or urinal?: None Eating meals?: None Daily Activities Raw Score (max 24): 23 Daily Activities Standardized Score: 51.12 Interpretation: Based on scoring guidelines using the raw score value: Those going to home had an average score at or above 18 Those going to facility had an average score at or below 17 Clinicians answer the [facility] Inpatient Short Form based on observed patient activity and/or clinical judgment (patient can be scored without physically performing each activity). Cognition: No observable concerns with cognition at this time Therapeutic Interventions: ACTIVITIES OF DAILY LIVING: GROOMING - Assist Level: supervision/set-up - Patient Location: standing at sink - Activity: brushing teeth - regular or soft brush, washing hands - Therapist Delivery: assessed, facilitated, instructed - Assist/Cues Provided: verbal for initiation LOWER BODY DRESSING - Assist Level: modified independent - Patient Location: long sitting - LB Dressing Item: socks - Therapist Delivery: assessed, facilitated, instructed - Assist/Cues Provided: none - Demonstrates functional reach down to her feet needed to complete lower body dressing task TOILETING - Assist Level: supervision/set-up - Patient Location: toilet - Activity: clothing management, pericare - Therapist Delivery: assessed, facilitated, instructed - Assist/Cues Provided: none - Adaptive Equipment: grab bars BED MOBILITY: SIT<>SUPINE - Assist Level: minimal assist - Device: none - Therapist Delivery: assessed, assisted, facilitated, instructed - Assist/Cues Provided: manual for lower extremity support - Reports can assist with managing left lower extremity upon return home. FUNCTIONAL TRANSFERS: SIT<>STAND - Assist Level: supervision/set-up - Device: front wheeled walker and gait belt - Surface: bed, toilet - Therapist Delivery: assessed, facilitated, instructed - Assist/Cues Provided: none TOILET TRANSFER - Assist Level: supervision/set-up - Device: front wheeled walker and gait belt - Approach: to and from, ambulating - Surface: toilet - Therapist Delivery: assessed, facilitated, instructed - Assist/Cues Provided: none - Adaptive Equipment: grab bars FUNCTIONAL MOBILITY: In-room mobility performed with supervision/stand by assistance and front wheeled walker and gait belt Education/Training Provided: Provided education on role of occupational therapy in the acute setting. Collaborated with patient and/or family on goals and plan of care. Caregiver Assistance: - Educated patient and/or caregiver on level of assistance recommended at discharge. Team Communication: The patient's status was discussed and coordination of care occurred with RN, PT Patient was left in bed at end of session with call light in reach, all needs met and questions answered. Assessment Discharge Therapy Needs - OT: No further skilled therapy If skilled therapy is recommended, skilled therapy can include occupational therapy provided in home health, outpatient or post-acute facility. The location of these services is determined by patient's care team in partnership with patient/family. Level of Care Needed - OT: Assistance with shopping, Assistance with housekeeping, Assistance with transportation, Assistance with meal preparation, Assistance with showering/bathing Barriers to Discharge Home: Current functional status Recommended Adaptive Equipment - OT: (Has all necessary adaptive equipment) Clinical Impression: Mrs. Douglas is a 73 year old female status post left knee open lysis of adhesions and poly exchange. Prior to this hospitalization, patient was living at home with her spouse. Reports overall independence with activities of daily living and instrumental activities of daily living. Patient completed bed mobility with Min A at the left lower extremity. Requires stand by assist andfront wheeled walker for in-room mobility and transfers. Completes toileting, standing grooming, and lower body dressing task without physical assistance. Patient has all necessary bathroom adaptive equipment for safe homegoing. Reports no further concerns with managing activities of daily living while hospitalized or upon her return home. Patient has a supportive who can assist her as needed. All OT goals discussed and met this date. OT will DC at this time. Plan Functional Goals: OT Goal #1: Patient will verbalize understanding of recommended adaptive equipment to increase patient's safety when completing daily tasks by discharge. OT Goal #1 Status: Achieved OT Goal #2: Patient will complete total body dressing task with modified independence, using adaptive equipment as needed, to increase patient's functional independence by discharge. OT Goal #2 Status: Achieved OT Goal #3: Patient will complete toileting task and toilet transfer with modified independence to increase patient's functional independence by discharge. OT Goal #3 Status: Achieved Progress: All OT goals achieved Rehab potential: Ms. Romero Douglas has excellent potential to achieve established occupational therapy goals within the time frame outlined below. OT Frequency: OT Amount: 1 visit per day OT Frequency: One-time visit OT Inpatient Duration : Until goals are met or hospital discharge Requires Inpatient OT Follow-Up: No Plan: Discontinue OT Treatment interventions may include: Treatment Interventions: Therapeutic exercise, Therapeutic functional activity, Cognitive skills training, Self-care/home management Occupational Therapy Attestation Statement: Patient agrees with the plan of care and goals. Billing: Tiered OT Evaluation Codes: Comorbid Conditions: Mental health disorder, Obesity Personal Factors: Needs assistive device, Living situation, History of falls Occupational Profile and History review: Brief Performance Deficits: 1 - 3 performance deficits Evaluation Complexity: Low Time Spent with Patient Evaluations OT Eval - Low Complexity: 10 min Therapeutic Interventions Home Management Training (min): 16 min Time Tracking Total Timed Units (min): 16 min Total Treatment Time (min): 26 min ([id number]) Maura Kee O.T., O.TNancy Cosigned by Brock Milton M.D. at 01/19/2024 6:54 AM FRET SAW OPERATOR SAW OPERATOR SAW OPERATOR * Addison Thurman M.S., RDN, LD - 01/17/2024 7:55 AM CSTAssociated Order(s): IP CONSULT TO DIETITIAN Clinical Nutrition: Initial Assessment Clinical Nutrition was requested to evaluate patient for positive nursing baseline nutrition screenwith a MST score of 2 or greater and assessment of nutritional status Completed visit with patient today as part of face to face care. SUBJECTIVE Ms. Romero Douglas is a 73 y.o. female admitted for Aftercare Total Knee Arthroplasty Pertinent Medical History: Past Medical History: Diagnosis Date Anxiety 03/25/2021 Bursitis Trochanteric Bilateral 10/24/2006 Cancer Colon Family History Depression Anxiety Dilated Aortic Root (HCC) 01/26/2018 Gastroesophageal Reflux Disease Hernia Hiatal Hypercholesterolemia Hypothyroidism Polyp Colon Polyp Colon Hyperplastic Tuberculosis Personal History as a child Current Nutrition: Patient is on a regular diet. Received breakfast this am. Nutrition Prior to Admission: Patient states that she has lost weight prior to admit. She reports that due to her living in a facility where the food was not very good and limited ability to obtain her own food she wasn't eating as much. Reports that she is always trying to loose weight though. She feels she has decreased muscle in the lower extremities due to decreased mobility. Adequate muscle mass to upper extremities. No issues chewing or swallowing. Patient states she hasn't had a BM fora few days, asking about MiraLAX. Nutrition Education/Counseling: discussed the importance of adequate oral nutrition for healing andrecovery. Provided with shakes and smoothies list Food Allergies/Intolerances: Allergies Allergen Reactions Chlorine Rash OBJECTIVE Current nutrition orders: Dietary Orders (From admission, onward) Start Ordered 01/16/24 1623 Adult Diet Regular (Adult Diet) Diet effective now Question: Diet texture: Answer: Regular 01/16/24 1622 01/16/24 1518 Advance diet as tolerated (Advance Diet as Tolerated (specify starting diet)) Until discontinued Comments: Advance patient to the target diet as tolerated Question: Target Diet: Answer: Regular 01/16/24 1517 Pertinent Labs: Last 3 results Lab Units 01/17/24 0509 SODIUM mmol/L 140 POTASSIUM mmol/L 3.9 CHLORIDE mmol/L 103 BUN mg/dL 14 CREATININE mg/dL 0.71 CALCIUM mg/dL 8.4* Chewing and Swallowing: no issues noted GI Function:Last BM Date: 01/14/24, , Passing Flatus: No Edema: , , , , , , Integumentary/Wounds: Lines/Drains/Airways Wound Duration Wound 07/04/23 Laceration Hand Right 196 days Wound 07/13/23 Incision Pretibial Left 188 days Wound 01/16/24 Incision Knee Anterior;Left <1 day Medications: Scheduled Meds:acetaminophen, 1,000 mg, oral, Q6H aspirin, 81 mg, oral, BID atorvastatin, 20 mg, oral, Daily at bedtime buPROPion XL, 300 mg, oral, QAM calcium citrate-vitamin D3, 2 tablet, oral, Daily with morning meal ceFAZolin, 2 g, intravenous, Q8H cetirizine, 20 mg, oral, BID levothyroxine, 100 mcg, oral, Daily multivitamin/mineral-adult, 1 tablet, oral, Daily polyethylene glycol, 1 packet, oral, Daily sennosides-docusate sodium, 1 tablet, oral, BID sodium chloride, 3 mL, intravenous, Q12H IDRIS Continuous Infusions:HYDROmorphone (PF) 10 mcg/mL in NaCl 0.9% 100 mL epidural (Dilaudid), , Last Rate: 10 mL/hr at 01/16/24 2338 Lactated Ringer's, 75 mL/hr, Last Rate: 75 mL/hr (01/16/24 1550) PRN Meds: benzocaine-menthol bisacodyL calcium carbonate haloperidol lactate hydrocortisone ibuprofen naloxone naloxone ondansetron prochlorperazine Edisylate sodium chloride sodium chloride Anthropometrics: Height: 163 cm Admission Weight: 73.5 kg (01/16/2024) Net IO Since Admission: -450 mL [01/17/24 0832] Weight history: weight loss of 7.3% in 4 months Wt Readings from Last 12 Encounters: 01/16/24 73.5 kg 12/06/23 75 kg 09/12/23 79.3 kg 07/10/23 83.6 kg 06/16/23 80 kg 01/21/23 82.2 kg 10/29/22 79.3 kg 08/23/22 79.7 kg 01/25/22 77.9 kg 11/24/21 75.7 kg 09/18/21 74.8 kg 07/20/21 77.7 kg ASSESSMENT / PLAN Nutrition Diagnosis: Increased nutrient needs related to surgery as evidenced by increased protein needs . Initiated Malnutrition Assessment: ASPEN Criteria of Malnutrition: Nutritional Status: Malnutrition criteria not met Based on: Energy Intake: Unable to Assess (suspect possibly inadequate based on patient report of food not being very good.) Interpretation of Weight Loss: No Change (7.3% in 4 months - no significant) Body Fat: Normal Muscle Mass: Normal Estimated Needs: Total Calorie Needs: 0974-5905 calories/day Method to Estimate Energy Needs: kcal/kg (25-30 kcal/kg) Weight Used for Equation Calculations: 74 kg Total Protein Needs: 89 - 104 grams/day (Method to Estimate Protein Needs (g/kg): 1.2 - 1.4 gm/kg) Weight Used to Calculate Protein Needs (Kg): 74 kg Nutrition Intervention: Interventions: Increase nutrient intake with small, frequent meals and/or snacks Monitoring/Evaluation: Nutrition parameter to monitor: Meals/Supplement Intake, Weight Status, and Return of Bowel Function Desired Outcome: Consume adequate nutrition orally Recommendations: Monitor for BM - possible need to increase bowel regimen Monitor oral intake - offer shakes/smoothies Clinical Nutrition will continue to follow. For questions about patient's nutritional care please contact pager [phone] on weekdays 07:30-16:00 or [phone] on weekends/holidays ([facility]). SAW OPERATOR * Silvana Marrufo M.D. - 01/17/2024 6:29 AM CSTAssociated Order(s): IP CONSULT TO INFECTIOUS DISEASES Infectious Diseases Orthopedic Surgery [facility] Consulting Service Consult Note SUBJECTIVE REASON FOR CONSULT We are seeing Ms. Romero Douglas at the request of Brock Milton M.D. to give further recommendations for evaluation and management of s/p left tka lysis of adhesions and poly exchange for stiffness, intraop cultures positive for GPCs, no significant concern for infection intraop, recs on antibiotics, etc. HISTORY OF PRESENT ILLNESS Ms. Romero Douglas is a 73 y.o. year-old female with past medical history significant for mitral regurgitation, hypothyroidism, hyperlipidemia, depression, anxiety disorder, gastroesophageal reflux disease. On 07/04/2023, patient underwent knee spanning external fixation for left bicondylar tibial plateaufracture after a fall. she underwent external fixation adjustment and ORIF tibial tubercle on 07/13/2023. Subsequently, she underwent left primary total knee arthroplasty on 09/12/2023. Since then, she andbeen struggling with of knee stiffness and pain. On 01/13/2024, she was followed by Orthopedic surgery. Dr. Milton recommended waiting period to allowscar tissue to major to decrease the risk of recurrence of scar tissue. The patient understood thisrecommendation but she wanted to move for as she is losing strength and mobility. The decision was made to take her back to OR on 01/16/2024. She underwent lysis of adhesions with open approach to the left knee on 01/16/2024. Per op note, there was a significant amount of scar tissue within the left knee in both the retropatellar space as well as in the medial and lateral gutters. The medial and lateral gutters were resected of synovium,and the scar tissue was resected off. 3 cultures from the synovial tissue around the knee. Gram stain of intraoperative tissue showed Gram-positive cocci, and cultures also growing MSSA. The patient reports moderate pain after the surgery, 6-7/10 this morning. Denies any systemic symptoms including fever, chills, sweats. She was off on any antibiotics prior to surgery. Denies any allergy to antibiotics. No significant trauma, injury, or recent fall event. No infectious disease history in the past. The following portions of the patient's history were reviewed: allergies, medical history, surgicalhistory, problem list, social history, current medications and family history. REVIEW OF SYSTEMS Review of systems is negative except for what is mentioned in HPI. OBJECTIVE PHYSICAL EXAMINATION Vital Signs: I have reviewed the current vital sign data as applicable General: No acute distress, laying comfortably in bed Skin: Warm, dry and normal color Musculoskeletal: Noted with left lower extremity that is wrapped from his thigh down to his foot. Cap refill less than 2 seconds all toes. Neurological: Alert and oriented x3, no neurological deficits Psychiatric: Normal mood and affect DIAGNOSTICS I have reviewed diagnostics including available labs, microbiology and radiology. Microbiology Susceptibility data from last 90 days. Collected Specimen Info Organism 01/16/24 Knee, Left Gram positive coccus resembling staphylococcus 01/16/24 Knee, Left Gram positive coccus resembling staphylococcus 01/16/24 Knee, Left S aureus complex ASSESSMENT / PLAN Incidental findings of positive culture MSSA from post lysis of adhesions of the left knee on 01/16/2024 Status post left primary total knee arthroplasty on 09/12/2023 Left bicondylar tibial plateau fracture status post left knee external fixation, followed by external fixation adjustment and ORIF tibial tubercle on 07/13/2023 Hypothyroidism on levothyroxine Other comorbidities: mitral regurgitation, hyperlipidemia, depression, anxiety disorder, gastroesophageal reflux disease In summary, 73 yo female with history of left bicondylar tibial plateau fracture status post left knee external fixation, followed by external fixation adjustment and ORIF tibial tubercle on 07/13/2023. She subsequently underwent left primary total knee arthroplasty as part of fracture stage treatment on 07/13/2023. The patient has had chronic knee pain and stiffness more than 5 months. Intraoperatively, although there was no evidence of gross infection, there was a significant amountof scar tissue. Intraoperative cultures came back positive for MSSA. Her chronic pain and stiffness could be explained by infectious process although she has not have typical signs and symptoms such as swelling, erythema, wound dehiscence, sinus tracts, drainage, or other systemic symptoms including fever, chills, sweats. We need IV therapy with ceFAZolin for 6 weeks, followed by chronic suppression given retained prostheses. We will recommend adding rifAMPin considering biofilm penetration. As the patient has been onlevothyroxine for hypothyroidism, we recommend to monitor TSH in 4 weeks and adjust the dose of levothyroxine if needed. RECOMMENDATIONS: Await final intraoperative culture results We will obtain baseline ESR, CRP, LFT Continue ceFAZolin 2 g IV every 8 hours Start RifAMPin 300 mg PO bid tomorrow As the patient has been on levothyroxine for hypothyroidism, we recommend to monitor TSH in 4 weeksand adjust the dose of levothyroxine if needed. Treatment plan reviewed with the patient, who expressed understanding. All questions answered to patient's satisfaction. We will follow along closely. Please page the [facility] service pager at [phone] with questions. Thank you for the consultation. Discussed with Infectious Diseases [facility], Dr. Corie Dempsey. Silvana Marrufo M.D. Orthopedic Infectious Diseases Fellow Cosigned by Corie Dempsey M.D. at 01/17/2024 3:05 PM FRET SAW OPERATOR SAW OPERATOR SAW OPERATOR SAW OPERATOR SAW OPERATOR Associated attestation - Corie Dempsey M.D. - 01/17/2024 3:05 PM FRET SAW OPERATOR I saw and evaluated the patient, participating in the borden portions of the service. I reviewed Dr. Marrufo's note. I agree with his findings and plan. Pt is s/p ID and liner exhange of left TKA infection on 01/16/24, presenting with few months of stiffness after primary left tka 09/2023, after fall and fracture with ex fix/orif tibial tubercle 07/13/23. We have recommended iv ceFAZolin MSSA PJI. We will plan to add rifAMPin tomorrow.- please get additional baseline labs as noted in associated note. Please have patient meet with social work for home going iv abx therapy planning. documented in this encounter Nursing Notes * Megan Hurley R.N. - 01/19/2024 1:15 PM CST Orders to dc home with home abx infusions and with out pt PICC site care/labs. [employer] seasonal greenery bundler provided pt with teaching and extension line at bedside. This RN called [facility] to set up labs and PICC cares at 10am. Discussed AVS including S&S to look out for, new meds, and f/u appts. Pt verbalized understanding, no questions about AVS however did ask about disability parking. D/w Nataliia Cole & she will fill it out in the portal for pt. No further questions or concerns from pt. Belongings packed and accounted for, pt wc to exit with pharm stop by dc transport. SAW OPERATOR * Nataliia Ogden R.N. - 01/19/2024 5:46 AM CST Problem: PAIN - ADULT Goal: PT VERBALIZES/DEMONSTRATES ADEQUATE COMFORT LEVEL OR BASELINE Outcome: Progressing Problem: SKIN/TISSUE INTEGRITY Goal: Skin/Tissue integrity maintained or improved Outcome: Progressing Shift Goals: Clinical Goals for the Shift: pain control with PO meds Identify possible barriers to meeting goals/advancing plan of care: none End of Shift Summary: INPATIENT SHIFT SUMMARY ORIENTATION: A&Ox3 SAFETY MEASURES: Bed Alarm and Hourly Rounding ASSISTED MOBILITY: x2 and Gait belt VITALS: Vitals assessed and stable this shift INTAKE: Adequate for solids and Adequate for liquids OUTPUT: Patient has been urinating adequately. PAIN: Pain has been well controlled with scheduled medications and PRNs PRN MEDICATIONS UTILIZED THIS SHIFT: Oxycodone DVT PROPHYLAXIS: SCDs CHG/SCHILLING CARE NEEDS: None needed SHIFT EVENTS: No acute events this shift. Patient slept well through the night. UPCOMING PLAN OF CARE: Continue current plan of care SAW OPERATOR documented in this encounter OR Notes * Op Note - Brock Milton M.D. - 01/16/2024 11:28 AM CST Pre-op Diagnosis Aftercare Total Knee Arthroplasty Post-op Diagnosis Aftercare Total Knee Arthroplasty Electric Hoist Operator A urology physician assistant actively participated and was necessary for one or more of the following: opening, exposure and visualization, maintaining hemostasis, wound closure resulting in its safe and expeditious completion. Findings Lysis of adhesions/inflamed tissue lasted less than 45 minutes. During the procedure, the following was observed: - Altered surgical field secondary to distorted anatomy, previous surgery and inflammation These findings added significant complexity to the procedure because of the previous surgery and scar tissue that was significant around the knee required dissection and mobilization in and around the scar tissue in order to allow for enough freedom to flex the knee past 90 degrees or so, which wasnecessary to change the polyethylene. Complications None Operative Note Narrative Patient brought to operating room 402. She was placed under general anesthesia and positioned supine on the operating table. The left lower extremity was then prepped and draped in normal sterile orthopedic fashion. A preprocedural time- out was performed to confirm the correct patient, site and side for the procedure, and that she received appropriate IV antibiotics within 30 minutes of incision. I then started with utilizing the patient's previous midline anterior incision over the left knee. Sharp dissection was carried down through skin and subcutaneous tissue down to level of the capsule,and then a standard medial parapatellar arthrotomy was performed. This required careful elevation of full- thickness skin flaps on the medial and lateral sides of the joint given the significant scar tissue that she had. After performing the arthrotomy, then I encountered a significant amount of scar tissue within the left knee in both the retropatellar space as well as in the medial and lateral gutters. A full medial release was performed on the tibia releasing the deep MCL off the tibia all way around the posterior aspect of the tibia. I took 3 cultures from the synovial tissue around the knee at this time. The medial and lateral gutters were resected of synovium, and the scar tissue was resected off all the way to but not including the collaterals the medial and lateral side of the knee. At this time, I then hyperflexed the knee with the patella subluxated and was able to get to the back of the knee and use a Cantrell to release the posterior capsule off the femur. The same Cantrell was then utilized on the anterior side releasing any adhesions between the quad and the femur anteriorly, although these were very minimal. We had previously already removed the polyethylene component which was a size 4 x 11 mm TS polyethylene. After this had been removed, I was able to get to the back of the knee. I then thoroughly irrigated the wound with sterile normal saline and dilute Betadine solution. We then proceeded with placement of a new polyethylene component and downsized the polyethylene to a size 4 x 9 mm, impacted this into place including the TS insert and then reduced the knee. The knee andpatella were stable through range of motion, and with the arthrotomy open, the knee would flex to about 100 degrees. With gravity it could be pushed to 125 degrees with pressure. We then irrigated the wound one more time and then closed in a layered fashion with 0 Vicryl in theskin, 2-0 Monocryl in subcutaneous tissues, and 3-0 nylon in the skin. We then took photographs of the knee to document the amount of range of motion. With gravity this was about to 90 degrees and could be pushed about 120 degrees with pressure gentle pressure over the tibia. We then applied sterile dressing. The patient was transferred back to the recovery room in stable condition. Antibiotics: Perioperative cefazolin x2 doses. VTE Prophylaxis: Aspirin 81 mg BID. Weight bearing: Weight bearing as tolerated immediately postoperatively. Disposition: Return to inpatient unit. We will start a continuous passive motion machine for the left knee set to at least 0-90 degrees and advancing as tolerated. She can use the machine as much as she desires. Brock Milton M.D. SAW OPERATOR SAW OPERATOR documented in this encounter Miscellaneous Notes * Hospital Course - Jolynn Cole P.A.-C., M.S. - 01/19/2024 10:26 AM FRET SAW OPERATOR # Open lysis of adhesions left knee for decreased range of motion On the day of admission, the patient was taken to the operative room by Dr. Mitlon for the procedure listed above. The intraoperative as well as the immediate postoperative course were uncomplicated. For further details of the surgery please see the operative note. The patient was transferred from the PACU to the general care floor. CPM machine was initiated immediately post operatively to maintainknee flexion. Intra-operative cultures returned positive and thus Infectious Disease team was consulted for assistance with management of antibiotic plan. A PICC line was placed prior to discharge. She was ambulating and compliant with any activity restrictions. She was tolerating an oral diet atthe time of dismissal and she had optimal pain control on oral medications. She then met criteria for dismissal and was discharged to home. # Left total knee arthroplasty on 09/12/2023. # Fracture Tibial Plateau Closed Initial Left # Anxiety Generalized Disorder # Depression Major # Gastroesophageal Reflux Disease NOS # Hypercholesterolemia # Hypothyroidism # Obesity Body Mass Index 30-39.9 Adult # Regurgitation Mitral SAW OPERATOR documented in this encounter Plan of Treatment Upcoming Encounters Date Type Department Care Team (Late st Contact Info) Description 03/01/2024 10:00 AM FRET SAW OPERATOR Comprehensive Visit Section of Infectious Diseases in [address] [phone] Silvana Marrufo M.D. [address] [place] [phone] 03/01/2024 10:40 AM FRET SAW OPERATOR Lab Department of Laboratory Medicine and Pathology, [facility], in [place], [place] [address] [place] [phone] Jolynn Cole P.A.-C., M.S. [address] [place] [phone] 03/01/2024 11:15 AM FRET SAW OPERATOR Appointment Department of Radiology, [facility] in [place], [place] [address] [place] [phone] Jolynn Cole P.A.-C., M.S. [address] [place] [phone] 03/01/2024 12:00 PM FRET SAW OPERATOR Office Visit Department of Orthopedic Surgery in [place], [place] [address] [place] [phone] Jolynn Cole P.A.-C., M.S. [address] [place] [phone] 03/13/2024 3:20 PM FRET SAW OPERATOR Comprehensive Visit Department of Family Medicine, [facility], in [place], [place] [address] [place] [phone] Treasure Baires M.D. [address] [place] [phone] 03/14/2024 1:30 PM FRET SAW OPERATOR Virtual Visit Section of Infectious Diseases in [place], [place] [address] [place] [phone] Silvana Marrufo M.D. [address] [place] [phone] Pending Results Name Type Priority Associated Diagnoses Date /Time Fungal Culture, Routine Microbiology Routine Aftercare Total Knee Arthroplasty 01/16/2024 11:40 AM FRET SAW OPERATOR Fungal Culture, Routine Microbiology Routine Aftercare Total Knee Arthroplasty 01/16/2024 11:40 AM FRET SAW OPERATOR Fungal Culture, Routine Microbiology Routine Aftercare Total Knee Arthroplasty 01/16/2024 11:40 AM FRET SAW OPERATOR Mycobacterial Culture Microbiology Routine Aftercare Total Knee Arthroplasty 01/16/2024 11:40 AM FRET SAW OPERATOR Mycobacterial Culture Microbiology Routine Aftercare Total Knee Arthroplasty 01/16/2024 11:40 AM FRET SAW OPERATOR Mycobacterial Culture Microbiology Routine Aftercare Total Knee Arthroplasty 01/16/2024 11:40 AM FRET SAW OPERATOR documented as of this encounter Procedures Procedure Name Priority Date/Time Associated Diagnosis Comments ALKALINE PHOSPHATASE, S/P Routine 01/19/2024 12:54 PM FRET SAW OPERATOR Aftercare Total Knee Arthroplasty Infection Total Knee Arthroplasty Initial Left (HCC) PERFORM CENTRAL ATTENDANT CAMPGROUND Routine 01/19/2024 11:00 AM FRET SAW OPERATOR PL[address] PERIPHERALLY INSERTED CENTRAL CATHETER (PICC) Routine 01/18/2024 8:30 PM FRET SAW OPERATOR HEPATIC FUNCTION PANEL, S Timed 01/18/2024 6:55 AM FRET SAW OPERATOR SEDIMENTATION RATE, B Timed 01/18/2024 6:55 AM FRET SAW OPERATOR C-REACTIVE PROTEIN (CRP), S/P Timed 01/18/2024 6:55 AM FRET SAW OPERATOR HEPATIC FUNCTION PANEL, S Routine 01/18/2024 5:56 AM FRET SAW OPERATOR SEDIMENTATION RATE, B Routine 01/18/2024 5:56 AM FRET SAW OPERATOR C-REACTIVE PROTEIN (CRP), S/P Routine 01/18/2024 5:56 AM FRET SAW OPERATOR ADULT OXYGEN THERAPY Routine 01/17/2024 8:01 PM FRET SAW OPERATOR ADULT OXYGEN THERAPY Routine 01/17/2024 8:01 PM FRET SAW OPERATOR ADULT OXYGEN THERAPY Routine 01/17/2024 8:01 PM FRET SAW OPERATOR ADULT OXYGEN THERAPY Routine 01/17/2024 11:32 AM FRET SAW OPERATOR ADULT OXYGEN THERAPY Routine 01/17/2024 11:32 AM FRET SAW OPERATOR ADULT OXYGEN THERAPY Routine 01/17/2024 11:32 AM FRET SAW OPERATOR ADULT OXYGEN THERAPY Routine 01/17/2024 11:32 AM FRET SAW OPERATOR ADULT OXYGEN THERAPY Routine 01/17/2024 8:02 AM FRET SAW OPERATOR CBC WITHOUT DIFFERENTIAL, B Routine 01/17/2024 5:09 AM FRET SAW OPERATOR BASIC METABOLIC PANEL, S/P Routine 01/17/2024 5:09 AM FRET SAW OPERATOR ADULT OXYGEN THERAPY Routine 01/16/2024 8:01 PM FRET SAW OPERATOR ADULT OXYGEN THERAPY Routine 01/16/2024 1:19 PM FRET SAW OPERATOR ADULT OXYGEN THERAPY Routine 01/16/2024 1:19 PM FRET SAW OPERATOR ADULT OXYGEN THERAPY Routine 01/16/2024 1:19 PM FRET SAW OPERATOR ADULT OXYGEN THERAPY Routine 01/16/2024 1:18 PM FRET SAW OPERATOR DX KNEE LEFT 2 VIEWS RAD - Routine (most inpatients and all outpatients) 01/16/2024 1:15 PM FRET SAW OPERATOR BACTERIA CULT, AEROBE/ANAEROBE+SUSC Routine 01/16/2024 11:40 AM FRET SAW OPERATOR BACTERIA CULT, AEROBE/ANAEROBE+SUSC Routine 01/16/2024 11:40 AM FRET SAW OPERATOR BACTERIA CULT, AEROBE/ANAEROBE+SUSC Routine 01/16/2024 11:40 AM FRET SAW OPERATOR MYCOBACTERIAL CULTURE, V Routine 01/16/2024 11:40 AM FRET SAW OPERATOR Aftercare Total Knee Arthroplasty MYCOBACTERIAL CULTURE, V Routine 01/16/2024 11:40 AM FRET SAW OPERATOR Aftercare Total Knee Arthroplasty MYCOBACTERIAL CULTURE, V Routine 01/16/2024 11:40 AM FRET SAW OPERATOR Aftercare Total Knee Arthroplasty FUNGAL SMEAR Routine 01/16/2024 11:40 AM FRET SAW OPERATOR Aftercare Total Knee Arthroplasty FUNGAL SMEAR Routine 01/16/2024 11:40 AM FRET SAW OPERATOR Aftercare Total Knee Arthroplasty FUNGAL SMEAR Routine 01/16/2024 11:40 AM FRET SAW OPERATOR Aftercare Total Knee Arthroplasty ACID FAST SMEAR FOR MYCOBACTERIUM Routine 01/16/2024 11:40 AM FRET SAW OPERATOR Aftercare Total Knee Arthroplasty ACID FAST SMEAR FOR MYCOBACTERIUM Routine 01/16/2024 11:40 AM FRET SAW OPERATOR Aftercare Total Knee Arthroplasty ACID FAST SMEAR FOR MYCOBACTERIUM Routine 01/16/2024 11:40 AM FRET SAW OPERATOR Aftercare Total Knee Arthroplasty GRAM STAIN Routine 01/16/2024 11:40 AM FRET SAW OPERATOR Aftercare Total Knee Arthroplasty GRAM STAIN Routine 01/16/2024 11:40 AM FRET SAW OPERATOR Aftercare Total Knee Arthroplasty GRAM STAIN Routine 01/16/2024 11:40 AM FRET SAW OPERATOR Aftercare Total Knee Arthroplasty FUNGAL CULTURE, ROUTINE Routine 01/16/2024 11:40 AM FRET SAW OPERATOR Aftercare Total Knee Arthroplasty FUNGAL CULTURE, ROUTINE Routine 01/16/2024 11:40 AM FRET SAW OPERATOR Aftercare Total Knee Arthroplasty FUNGAL CULTURE, ROUTINE Routine 01/16/2024 11:40 AM FRET SAW OPERATOR Aftercare Total Knee Arthroplasty ARTHROPLASTY REPLACEMENT TOTAL KNEE 01/16/2024 10:21 AM FRET SAW OPERATOR Aftercare Total Knee Arthroplasty Case Notes [employer]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 documented in this encounter Results * (ABNORMAL) Alkaline Phosphatase (01/19/2024 12:54 PM FRET SAW OPERATOR) Alkaline Phosphatase, S 155(H) 35 - 104 U/L 01/19/2024 3:29 PM FRET SAW OPERATOR DTL Blood (Blood, Venous) 01/19/2024 12:54 PM FRET SAW OPERATOR 01/19/2024 1:39 PM FRET SAW OPERATOR us Jolynn Cole P.A.-C., M.S. LAB BLOOD ADD-ON Final Result [facility] [address] [place] [address], [facility] DTL [facility] [address] [place] [address] * Perform central line painting machine operator: Site care (01/19/2024 11:00 AM FRET SAW OPERATOR) Narrative Jarocho Sim R.N. - 01/19/2024 11:00 AM FRET SAW OPERATOR Jarocho Sim R.N. 01/19/2024 11:02 AM Perform central line painting machine operator: Site care Performed by: Jarocho Sim R.N. Authorized by: Brock Milton M.D. Brock Milton M.D. PROCEDURE/MINOR SURGICAL ORD ERABLES Final Result * Place peripherally inserted central catheter (PICC) (01/18/2024 8:30 PM FRET SAW OPERATOR) Narrative MMODAL - 01/18/2024 8:30 PM FRET SAW OPERATOR Can Crockett R.N. 01/18/2024 10:[address] [...] to release the adhesive from the skin. [email or web address]/[email or web address] Kashif Dailey M.D. PROCEDURE/MINOR SURGICAL ORDERABLES Final Result [facility] NA * (ABNORMAL) Hepatic Function Panel (01/18/2024 6:55 AM FRET SAW OPERATOR) Bilirubin, Total, S 0.4 0.0 - 1.2 mg/dL 01/18/2024 8:12 AM FRET SAW OPERATOR DTL Bilirubin, Direct, S <0.2 0.0 - 0.3 mg/dL 01/18/2024 8:12 AM FRET SAW OPERATOR DTL Aspartate Aminotransferase (AST), S 32 8 - 43 U/L 01/18/2024 8:12 AM FRET SAW OPERATOR DTL Alanine Aminotransferase (ALT), S 14 7 - 45 U/L 01/18/2024 8:12 AM FRET SAW OPERATOR DTL Alkaline Phosphatase, S 122(H) 35 - 104 U/L 01/18/2024 8:12 AM FRET SAW OPERATOR DTL Albumin, S 3.6 3.5 - 5.0 g/dL 01/18/2024 8:12 AM FRET SAW OPERATOR DTL Protein, Total, S 6.1(L) 6.3 - 7.9 g/dL 01/18/2024 8:12 AM FRET SAW OPERATOR DTL Blood (Blood, Venous) 01/18/2024 6:55 AM FRET SAW OPERATOR 01/18/2024 7:48 AM FRET SAW OPERATOR Margareth Minor M.D. LAB BLOOD ADD-ON Final Re sult Performing Organization Address City/[facility]/ZIP Co de Phone Number [facility] [address] [place], [place] [id number] [place] [address] * (ABNORMAL) Sedimentation Rate (01/18/2024 6:55 AM FRET SAW OPERATOR) Sedimentation Rate, B 55(H) 3 - 28 mm/h 01/18/2024 8:26 AM FRET SAW OPERATOR DTL Blood (Blood, Venous) 01/18/2024 6:55 AM FRET SAW OPERATOR 01/18/2024 7:27 AM FRET SAW OPERATOR Margareth Minor M.D. LAB BLOOD ADD-ON Final sult [facility] [address] [place], [place] [phone] [place] [address] [place] [address] * (ABNORMAL) CRP (C-Reactive Protein) (01/18/2024 6:55 AM FRET SAW OPERATOR) C-Reactive Protein (CRP), S 125.4(H) <5.0 mg/L 01/18/2024 8:12 AM FRET SAW OPERATOR DTL Blood (Blood, Venous) 01/18/2024 6:55 AM FRET SAW OPERATOR 01/18/2024 7:48 AM FRET SAW OPERATOR us Margareth Minor M.D. LAB BLOOD ADD-ON Final Re sult Performing Organization Address [facility] Co de Phone Number [facility] [address] [place] [address], [address] [address] * (ABNORMAL) Hepatic Function Panel (01/18/2024 5:56 AM FRET SAW OPERATOR) Bilirubin, Total, S 0.3 0.0 - 1.2 mg/dL 01/18/2024 7:49 AM FRET SAW OPERATOR DTL Bilirubin, Direct, S <0.2 0.0 - 0.3 mg/dL 01/18/2024 7:49 AM FRET SAW OPERATOR DTL Aspartate Aminotransferase (AST), S 39 8 - 43 U/L 01/18/2024 7:49 AM FRET SAW OPERATOR DTL Alanine Aminotransferase (ALT), S 12 7 - 45 U/L 01/18/2024 7:49 AM FRET SAW OPERATOR DTL Alkaline Phosphatase, S 123(H) 35 - 104 U/L 01/18/2024 7:49 AM FRET SAW OPERATOR DTL Albumin, S 3.7 3.5 - 5.0 g/dL 01/18/2024 7:49 AM FRET SAW OPERATOR DTL Protein, Total, S 6.1(L) 6.3 - 7.9 g/dL 01/18/2024 7:49 AM FRET SAW OPERATOR DTL Blood (Blood, Venous) 01/18/2024 5:56 AM FRET SAW OPERATOR 01/18/2024 6:34 AM FRET SAW OPERATOR us Silvana Marrufo M.D. LAB BLOOD ADD-ON Final Resu lt Performing Organization Address City/[facility]/ZIP Co de Phone Number [facility] [address] [place] [address], [facility] [address] [place] [address] * (ABNORMAL) Sedimentation Rate (01/18/2024 5:56 AM FRET SAW OPERATOR) Sedimentation Rate, B 59(H) 3 - 28 mm/h 01/18/2024 7:19 AM FRET SAW OPERATOR DTL Blood (Blood, Venous) 01/18/2024 5:56 AM FRET SAW OPERATOR 01/18/2024 6:19 AM FRET SAW OPERATOR us Silvana Marrufo M.D. LAB BLOOD ADD-ON Final Resu lt Performing Organization Address [facility] Co de Phone Number [facility] [address] [place] [address], [facility] [address] [place] [address] * (ABNORMAL) CRP (C-Reactive Protein) (01/18/2024 5:56 AM FRET SAW OPERATOR) [facility] C-Reactive Protein (CRP), S 119.7(H) <5.0 mg/L 01/18/2024 7:49 AM FRET SAW OPERATOR DTL Blood (Blood, Venous) 01/18/2024 5:56 AM FRET SAW OPERATOR 01/18/2024 6:34 AM FRET SAW OPERATOR us Silvana Marrufo M.D. LAB BLOOD ADD-ON Final Resu lt Performing Organization Address [facility] de Phone Number [facility] [address] [place] [address], [address] [address] * (ABNORMAL) CBC without Differential (01/17/2024 5:09 AM FRET SAW OPERATOR) [facility] Hemoglobin 9.5(L) 11.6 - 15.0 g/dL 01/17/2024 6:26 AM FRET SAW OPERATOR DTL Hematocrit 30.6(L) 35.5 - 44.9 % 01/17/2024 6:26 AM FRET SAW OPERATOR DTL Erythrocytes 3.42(L) 3.92 - 5.13 x10(12)/L 01/17/2024 6:26 AM FRET SAW OPERATOR DTL MCV 89.5 78.2 - 97.9 fL 01/17/2024 6:26 AM FRET SAW OPERATOR DTL RBC Distrib Width 14.8 12.2 - 16.1 % 01/17/2024 6:26 AM FRET SAW OPERATOR DTL Platelet Count 250 157 - 371 x10(9)/L 01/17/2024 6:26 AM FRET SAW OPERATOR DTL Leukocytes 7.9 3.4 - 9.6 x10(9)/L 01/17/2024 6:26 AM FRET SAW OPERATOR DTL Blood (Blood, Venous) 01/17/2024 5:09 AM FRET SAW OPERATOR 01/17/2024 6:19 AM FRET SAW OPERATOR Jolynn Cole P.A.-C., M.S. LAB BLOOD ADD-ON Final Result [facility] [address] [place] [address], [facility] [address] [place] [address] * (ABNORMAL) Basic Metabolic Panel (01/17/2024 5:09 AM FRET SAW OPERATOR) Pathologist [facility] Potassium, S 3.9 3.6 - 5.2 mmol/L 01/17/2024 6:50 AM FRET SAW OPERATOR DTL Sodium, S 140 135 - 145 mmol/L 01/17/2024 6:50 AM FRET SAW OPERATOR DTL Chloride, S 103 98 - 107 mmol/L 01/17/2024 6:50 AM FRET SAW OPERATOR DTL Bicarbonate, S 26 22 - 29 mmol/L 01/17/2024 6:50 AM FRET SAW OPERATOR DTL Anion Gap 11 7 - 15 01/17/2024 6:50 AM FRET SAW OPERATOR DTL BUN (Blood Urea Nitrogen), S 14 6 - 21 mg/dL 01/17/2024 6:50 AM FRET SAW OPERATOR DTL Creatinine 0.71 0.59 - 1.04 mg/dL 01/17/2024 6:50 AM FRET SAW OPERATOR DTL Estimated GFR (eGFR) 90 >=60 mL/min/BSA 01/17/2024 6:50 AM FRET SAW OPERATOR DTL Comment: Estimated GFR calculated using the 2020 CKD_EPI creatinine equation. Calcium, Total, S 8.4(L) 8.8 - 10.2 mg/dL 01/17/2024 6:50 AM FRET SAW OPERATOR DTL Glucose, S 145(H) 70 - 140 mg/dL 01/17/2024 6:50 AM FRET SAW OPERATOR DTL Blood (Blood, Venous) 01/17/2024 5:09 AM FRET SAW OPERATOR 01/17/2024 6:31 AM FRET SAW OPERATOR Jolynn Cole P.A.-C., M.S. LAB BLOOD ADD-ON Final Result [facility] [address] [place] [address], [facility] [address] [place] [address] * DX Knee Left 2 Views (01/16/2024 1:15 PM FRET SAW OPERATOR) Anatomical Region Laterality Modality Lower Extremity, Knee, Muscu loskeletal RST LOS, Musculoskeletal ARZ LOS, Muskuloskeletal FLA LOS Left Digit al Radiography Impressions 01/16/2024 1:41 PM FRET SAW OPERATOR Postsurgical changes of left TKA with patellar resurfacing and longstem tibial component. No evidence of hardware failure. Healing fracture of the proximal tibia and fibula. Otherwise negative for postoperative purposes. Narrative 01/16/2024 1:41 PM FRET SAW OPERATOR EXAM: DX KNEE LEFT 2 VIEWS Procedure [...] / Anaerobe + Susc (01/16/2024 11:40 AM FRET SAW OPERATOR) Bacteria Cult, Aerobe/Anaerobe+S usc STAPHYLOCOCCUS AUREUS Growth after 1 day (A) 01/20/2024 1:53 PM FRET SAW OPERATOR DTL Comment: mecA not detected Methicillin (oxacillin)-susceptible Staphylococcus aureus. Knee, Left 01/16/2024 11:4 0 AM FRET SAW OPERATOR 01/16/2024 3:19 PM FRET SAW OPERATOR Comment:Specimen Source Site : Tissue #2 Narrative [facility] - 01/20/2024 1:53 PM FRET SAW OPERATOR Bacterial Culture: Placed in Bactec aerobic and [...] MICROBIOLOGY - GENERAL O RDERABLES Final Result [facility] [address] [place] [address], [place] DTL [facility] [address] [place] [address] * (ABNORMAL) Bacteria Culture, Aerobe / Anaerobe + Susc (01/16/2024 11:40 AM FRET SAW OPERATOR) Bacteria Cult, Aerobe/Anaer obe+Susc STAPHYLOCOCCUS AUREUS Growth after 1 day (A) 01/20/2024 10:59 AM FRET SAW OPERATOR DTL Comment: Semi-Urgent Result. Susceptibilities performed on another specimen [id number] Semi-Urgent This is a semi-urgent result(CASTILLO) [facility] Knee, Left 01/16/2024 11:4 0 AM FRET SAW OPERATOR 01/16/2024 2:30 PM FRET SAW OPERATOR Comment:Specimen Source Site : Tissue #1 Narrative [facility] - 01/20/2024 10:59 AM FRET SAW OPERATOR Bacterial Culture: Placed in Bactec aerobic and Bactec anaerobic bottles Brock Milton M.D. LAB MICROBIOLOGY - GENERAL O RDERABLES Final Result Performing Organization Address City/[facility]/ZIP Co de Phone Number [facility] [address] [place] [address], [facility] DTL [facility] [address] [place] [address] * (ABNORMAL) Bacteria Culture, Aerobe / Anaerobe + Susc (01/16/2024 11:40 AM FRET SAW OPERATOR) Bacteria Cult, Aerobe/Anaero be+Susc STAPHYLOCOCCUS AUREUS Growth after 1 day (A) 01/20/2024 10:59 AM FRET SAW OPERATOR DTL Comment:Susceptibilities per formed on another specimen [id number] Knee, Left 01/16/2024 11:4 0 AM FRET SAW OPERATOR 01/16/2024 2:26 PM FRET SAW OPERATOR Comment:Specimen Source Site : Tissue #3 Narrative [facility] - 01/20/2024 10:59 AM FRET SAW OPERATOR Bacterial Culture: Placed in Bactec aerobic and Bactec anaerobic bottles us Brock Milton M.D. LAB MICROBIOLOGY - GENERAL O RDERABLES Final Result Performing Organization Address City/[facility]/ZIP Co de Phone Number [facility] [address] [place] [address], [facility] DTL [facility] [address] [place] [address] * Fungal Smear (01/16/2024 11:40 AM FRET SAW OPERATOR) Fungal Smear Negative. 01/16/2024 9:04 PM FRET SAW OPERATOR DTL Tissue (Knee, Left) 01/16/2024 11:40 AM FRET SAW OPERATOR Narrative [facility] - 01/16/2024 9:04 PM FRET SAW OPERATOR Bacterial Culture: Placed in Bactec aerobic and Bactec anaerobic bottles Brock Milton M.D. LAB MICROBIOLOGY - GENERAL O RDERABLES Final Result [facility] [address] [place] [address], [facility] [address] [place] [address] * Fungal Smear (01/16/2024 11:40 AM FRET SAW OPERATOR) Fungal Smear Negative. 01/16/2024 9:04 PM FRET SAW OPERATOR DTL Tissue (Knee, Left) 01/16/2024 11:40 AM FRET SAW OPERATOR Narrative [facility] - 01/16/2024 9:04 PM FRET SAW OPERATOR Bacterial Culture: Placed in Bactec aerobic and Bactec anaerobic bottles us Brock Milton M.D. LAB MICROBIOLOGY - GENERAL O RDERABLES Final Result [facility] [address] [place] [address], [facility] [address] [place] [address] * Fungal Smear (01/16/2024 11:40 AM FRET SAW OPERATOR) Fungal Smear Negative. 01/16/2024 9:04 PM FRET SAW OPERATOR DTL Tissue (Knee, Left) 01/16/2024 11:40 AM FRET SAW OPERATOR Narrative [facility] - 01/16/2024 9:04 PM FRET SAW OPERATOR Bacterial Culture: Placed in Bactec aerobic and Bactec anaerobic bottles us Brock Milton M.D. LAB MICROBIOLOGY - GENERAL O RDERABLES Final Result [facility] [address] [place] [address], [facility] [address] [place] [address] * Acid Fast Smear for Mycobacterium (01/16/2024 11:40 AM FRET SAW OPERATOR) Acid Fast Smear For Mycobacterium Negative. 01/16/2024 10:10 PM FRET SAW OPERATOR DTL Tissue (Knee, Left) 01/16/2024 11:40 AM FRET SAW OPERATOR Narrative [facility] - 01/16/2024 10:10 PM FRET SAW OPERATOR Bacterial Culture: Placed in Bactec aerobic and Bactec anaerobic bottles us Brock Milton M.D. LAB MICROBIOLOGY - GENERAL O RDERABLES Final Result Performing Organization Address City/[facility]/ZIP Co de Phone Number [facility] [address] [place] [address], [facility] [address] [place] [address] * Acid Fast Smear for Mycobacterium (01/16/2024 11:40 AM FRET SAW OPERATOR) Acid Fast Smear For Mycobacterium Negative. 01/16/2024 10:48 PM FRET SAW OPERATOR DTL Tissue (Knee, Left) 01/16/2024 11:40 AM FRET SAW OPERATOR Narrative [facility] - 01/16/2024 10:48 PM FRET SAW OPERATOR Bacterial Culture: Placed in Bactec aerobic and Bactec anaerobic bottles us Brock Milton M.D. LAB MICROBIOLOGY - GENERAL O RDERABLES Final Result [facility] [address] [place] [address], [facility] [address] [place] [address] * Acid Fast Smear for Mycobacterium (01/16/2024 11:40 AM FRET SAW OPERATOR) Acid Fast Smear For Mycobacterium Negative. 01/16/2024 10:10 PM FRET SAW OPERATOR DTL Tissue (Knee, Left) 01/16/2024 11:40 AM FRET SAW OPERATOR Narrative [facility] - 01/16/2024 10:10 PM FRET SAW OPERATOR Bacterial Culture: Placed in Bactec aerobic and Bactec anaerobic bottles Brock Milton M.D. LAB MICROBIOLOGY - GENERAL O RDERABLES Final Result Performing Organization Address City/[facility] Co de Phone Number [facility] [address] [place] [address], [facility] [address] [place] [address] * (ABNORMAL) Gram Stain (01/16/2024 11:40 AM FRET SAW OPERATOR) Gram Stain White blood cells, Many(A) 01/16/2024 6:50 PM FRET SAW OPERATOR DTL Gram Stain GRAM POSITIVE COCCI Rare (A) 01/16/2024 6:50 PM FRET SAW OPERATOR DTL Comment:Semi-Urgent Result. Semi-Urgent This is a semi-urgent result(CASTILLO) [facility] Tissue (Knee, Left) 01/16/2024 11:40 AM FRET SAW OPERATOR Narrative [facility] - 01/16/2024 6:50 PM FRET SAW OPERATOR Bacterial Culture: Placed in Bactec aerobic and Bactec anaerobic bottles Brock Milton M.D. LAB MICROBIOLOGY - GENERAL O RDERABLES Final Result Performing Organization Address City/[facility] Co de Phone Number [facility] [address] [place] [address], [facility] DTL [facility] [address] [place] [address] * (ABNORMAL) Gram Stain (01/16/2024 11:40 AM FRET SAW OPERATOR) Gram Stain White blood cells, Many(A) 01/16/2024 6:50 PM FRET SAW OPERATOR DTL Gram Stain GRAM POSITIVE COCCI Rare (A) 01/16/2024 6:50 PM FRET SAW OPERATOR DTL Tissue (Knee, Left) 01/16/2024 11:40 AM FRET SAW OPERATOR Narrative [facility] - 01/16/2024 6:50 PM FRET SAW OPERATOR Bacterial Culture: Placed in Bactec aerobic and Bactec anaerobic bottles us Brock Milton M.D. LAB MICROBIOLOGY - GENERAL O RDERABLES Final Result Performing Organization Address [facility] Co de Phone Number [facility] [address] [place] [address], [facility] [address] [place] [address] * (ABNORMAL) Gram Stain (01/16/2024 11:40 AM FRET SAW OPERATOR) Gram Stain White blood cells, Many(A) 01/16/2024 6:50 PM FRET SAW OPERATOR DTL Gram Stain GRAM POSITIVE COCCI Rare (A) 01/16/2024 6:50 PM FRET SAW OPERATOR DTL Tissue (Knee, Left) 01/16/2024 11:40 AM FRET SAW OPERATOR Narrative [facility] - 01/16/2024 6:50 PM FRET SAW OPERATOR Bacterial Culture: Placed in Bactec aerobic and Bactec anaerobic bottles us Brock Milton M.D. LAB MICROBIOLOGY - GENERAL O RDERABLES Final Result Performing Organization Address [facility] Co de Phone Number [facility] [address] [place] [address], [facility] ([facility] [address] [place] [address] documented in this encounter Visit Diagnoses Diagnosis Aftercare Total Knee Arthroplasty- Primary Aftercare Total Knee Arthroplasty Decline Functional Status [R53.81] Infection Total Knee Arthroplasty Initial Left (HCC) Pain Knee Left Decline Functional Status documented in this encounter Admitting Diagnoses Diagnosis Aftercare Total Knee Arthroplasty Pain Knee Left documented in this encounter Administered Medications Inactive Administered Medications - up to 3 most recent administrations Medication Order MAR Action Action Date Dose Rate Site acetaminophen tablet 1,000 mg (TylenoL) 1,000 mg, oral, Once, On 01/16/24 at 1030, For 1 dose, Pre-Op Given 01/16/2024 10:11 AM FRET SAW OPERATOR 1,000 mg acetaminophen tablet 1,000 mg (TylenoL) 1,000 mg, oral, Every 6 hours, First dose (after last modification) on Tue01/17/24 at 0815 Given 01/19/2024 8:14 AM FRET SAW OPERATOR 1,000 mg Given 01/19/2024 2:41 AM FRET SAW OPERATOR 1,000 mg Given 01/18/2024 7:47 PM FRET SAW OPERATOR 1,[address] tablet 81 mg 81 mg, oral, 2 times daily, First dose (after last modification) on Tue01/17/24 at 0900, Swallow whole. Do NOT crush, chew, or split tablet. Given 01/19/2024 8:14 AM FRET SAW OPERATOR 81 mg Given 01/18/2024 8:45 PM FRET SAW OPERATOR 81 mg Given 01/18/2024 9:31 AM FRET SAW OPERATOR 81 mg atorvastatin tablet 20 mg (Lipitor) 20 mg, oral, Daily at bedtime, First dose on Tue01/16/24 at 2100, atorvastatin 20 mg oral daily was interchanged for pravastatin oral daily Given 01/18/2024 8:45 PM FRET SAW OPERATOR 20 mg Given 01/17/2024 9:15 PM FRET SAW OPERATOR 20 mg Given 01/16/2024 8:46 PM FRET SAW OPERATOR 20 mg bisacodyL suppository 10 mg (Dulcolax) 10 mg, rectal, Daily PRN, constipation, Starting on Tue01/16/24 at 1517, Ordered sequence of administration: polyethylene glycol, then bisacodyl until BM achieved. Given 01/18/2024 10:36 AM FRET SAW OPERATOR 1 0 mg buPROPion XL 24 hr tablet 300 mg (Wellbutrin XL) 300 mg, oral, Every morning, First dose on Tue01/17/24 at 0900, Swallow whole. Do NOT crush, chew, or split tablet. Given 01/19/2024 8:15 AM FRET SAW OPERATOR 300 mg Given 01/18/2024 9:31 AM FRET SAW OPERATOR 300 mg Given 01/17/2024 9:14 AM FRET SAW OPERATOR 300 mg calcium citrate-vitamin D3 315 mg-5 mcg (200 Unit) per tablet 2 tablet (Citracal + D3) 2 tablet, oral, Daily with morning meal, First dose on Tue01/17/24 at 0800, Vitamin D: Units x 0.025 = mcg (e.g. 200 Units = 5 mcg; 250 Units = 6.25 mcg; 5,000 Units = 125 mcg) Given 01/19/2024 8:14 AM FRET SAW OPERATOR 2 tablets Given 01/17/2024 9:14 AM FRET SAW OPERATOR 2 tablets ceFAZolin injection 2 g (Ancef) 2 g, intravenous, Every 8 hours, First dose on Tue01/16/24 at 1900, For 2 doses, Start within 8 hours of last IV dose. For immediate IV push administration, reconstitute vial per IVAG or package insert instructions. See IVAG for administration guidelines., Drug Monitoring Program: Pharmacist to adjust medication dosing based on indication and drug clearance factors., Indications: Prophylaxis, surgicalIndications:Prophylaxis, surgical Given 01/17/2024 3:28 AM FRET SAW OPERATOR 2 g Given 01/16/2024 6:48 PM FRET SAW OPERATOR 2 g ceFAZolin injection 2 g (Ancef) 2 g, intravenous, Every 8 hours, First dose (after last modification) on Tue01/17/24 at 1130, For 5 days, Start within 8 hours of last IV dose. For immediate IV push administration, reconstitute vial per IVAG or package insert instructions. See IVAG for administration guidelines., Drug Monitoring Program: Pharmacist to adjust medication dosing based on indication and drug clearance factors., Indications: Bone and/or joint infectionIndications:Bone and/or joint infection Given 01/18/2024 4:30 AM FRET SAW OPERATOR 2 g Given 01/17/2024 6:36 PM FRET SAW OPERATOR 2 g Given 01/17/2024 12:09 PM FRET SAW OPERATOR 2 g cefTRIAXone in dextrose (iso osm) IVPB 2 g (Rocephin) 2 g, intravenous, at 200 mL/hr, Administer over 15 Minutes, Every 24 hours, First dose (after last modification) on Tue01/18/24 at 1215, For 41 doses, Drug Monitoring Program: Pharmacist to adjust medication dosing based on indication and drug clearance factors., Indications: Bone and/or joint infectionIndications:Bone and/or joint infection New Bag 01/19/2024 12:06 PM FRET SAW OPERATOR 2 g 200 mL/hr New Bag 01/18/2024 1:12 PM FRET SAW OPERATOR 2 g 200 mL/hr cetirizine tablet 10 mg (ZyrTEC) 10 mg, oral, Daily at bedtime, First dose on Tue01/16/24 at 2100, Drug Monitoring Program: Pharmacist to adjust medication dosing based on indication and drug clearance factors. Given 01/16/2024 8:46 PM FRET SAW OPERATOR 10 mg cetirizine tablet 20 mg (ZyrTEC) 20 mg, oral, 2 times daily, First dose (after last modification) on Tue01/17/24 at 0900, Drug Monitoring Program: Pharmacist to adjust medication dosing based on indication and drug clearance factors. Given 01/19/2024 8:13 AM FRET SAW OPERATOR 20 mg Given 01/18/2024 8:45 PM FRET SAW OPERATOR 20 mg Given 01/18/2024 9:31 AM FRET SAW OPERATOR 20 mg D5W infusion 1-999 mL/hr, intravenous, As needed, Medications Incompatible with 0.9% NaCL, Starting on Tue01/18/24 at 2215, Infuse at the same rate as the piggyback until tubing clears or up to a volume of 20 mL pre and post infusion for medications incompatible with 0.9% NaCL. Use 50 mL bag then discard. fentaNYL citrate (PF) 50 mcg/mL HEAD PORTER bag solution (Sublimaze) HEAD PORTER Dose: 20 mcg, HEAD PORTER Lockout: 10 Minutes, Continuous Rate: 0 mcg/hr, Four Hour Limit: 400 mcg, intravenous, Continuous, Starting on Tue01/17/24 at 1045, Prescriber to manage. Administer with a compatible IV carrier fluid. New Bag 01/17/2024 11:08 AM FRET SAW OPERATOR fentaNYL injection 25 mcg (Sublimaze) 25 mcg, intravenous, Every 2 min PRN, For pain 4 or greater (maximum 100 mcg). If max dose of Fentanyl is reached and if pain is greater than 4, discontinue Fentanyl: give Hydromorphone, Starting on Tue01/16/24 at 1318, PACU (only) Given 01/16/2024 1:28 PM FRET SAW OPERATOR 25 mcg Given 01/16/2024 1:26 PM FRET SAW OPERATOR 25 mcg HYDROmorphone (PF) 10 mcg/mL in NaCl 0.9% 100 mL epidural (Dilaudid) epidural, at 10 mL/hr, Continuous, Starting on Tue01/16/24 at 1100, For 3 days, Anesthesia Intra-op, Location: Lumbar Rate/Dose Change 01/16/2024 1:50 PM FRET SAW OPERATOR 10 mL/hr New Bag 01/16/2024 1:11 PM FRET SAW OPERATOR 5 mL/hr 5 mL/hr HYDROmorphone (PF) 10 mcg/mL in NaCl 0.9% 100 mL epidural (Dilaudid) epidural, at 10 mL/hr, Continuous, Starting on Tue01/16/24 at 2145, Already upstairs, Location: Lumbar New Bag 01/17/2024 9:34 AM FRET SAW OPERATOR 10 m L/hr New Bag 01/16/2024 11:38 PM FRET SAW OPERATOR 10 mL/hr Rate/Dose Change 01/16/2024 10:29 PM FRET SAW OPERATOR 10 mL/ hr ibuprofen tablet 400 mg 400 mg, oral, Every 6 hours, First dose (after last modification) on Tue01/18/24 at 0715, Take with food or milk if GI disturbances occur with use. Given 01/19/2024 12:27 PM FRET SAW OPERATOR 400 mg Given 01/19/2024 6:23 AM FRET SAW OPERATOR 400 mg Given 01/19/2024 12:15 AM FRET SAW OPERATOR 400 mg ibuprofen tablet 800 mg 800 mg, oral, 3 times daily PRN, moderate pain or score 4-6 of 10, Starting on Tue01/16/24 at 1517, Take with food or milk if GI disturbances occur with use. Given 01/17/2024 9:14 AM FRET SAW OPERATOR 800 mg Lactated Ringer's 75 mL/hr, intravenous, Continuous, Starting on Tue01/16/24 at 1545, Discontinue when oral intake greater than 500 ml New Bag 01/16/2024 3:50 PM FRET SAW OPERATOR 75 mL/hr 75 mL/hr levothyroxine tablet 100 mcg 100 mcg, oral, Daily, First dose on Tue01/17/24 at 0900 Given 01/19/2024 8:14 AM FRET SAW OPERATOR 100 mcg Given 01/18/2024 9:31 AM FRET SAW OPERATOR 100 mcg Given 01/17/2024 9:14 AM FRET SAW OPERATOR 100 mcg magnesium hydroxide suspension 30 mL (Milk of Magnesia) 30 mL, oral, Daily PRN, constipation, Starting on Tue01/17/24 at 1613 Given 01/18/2024 10:36 AM FRET SAW OPERATOR 30 mL Given 01/17/2024 6:36 PM FRET SAW OPERATOR 30 mL fjdbcgbewhyr-pexo-LL-Ca-minerals 400 mcg (folic acid) tablet 1 tablet 1 tablet, oral, Daily, First dose on Tue01/17/24 at 0900 Given 01/19/2024 8:14 AM FRET SAW OPERATOR 1 tablet Given 01/17/2024 9:14 AM FRET SAW OPERATOR 1 tablet NaCl 0.9% infusion 1-999 mL/hr, intravenous, As needed, Between Consecutive Piggyback Medications, Starting on Tue01/18/24 at 2215, For 7 days, Infuse at the same rate as the piggyback until tubing clears or up to a volume of 20 mL. Select for IV medication administration when no maintenance IV available or when IV medications are not compatible with maintenance fluid. NaCl 0.9% infusion 1-999 mL/hr, intravenous, As needed, Post Medications (Hazardous/Low Fluid Volume), Starting on Tue01/18/24 at 2215, For 7 days, Infuse at the same rate as the medication until tubing cleared of medication, then discard. nalbuphine injection 2.5 mg (Nubain) 2.5 mg, intravenous, Every 4 hours PRN, itching, Starting on Tue01/17/24 at 1132, For 4 doses, PACU & Post-Op naloxone injection 0.1 mg (Narcan) 0.1 mg, intravenous, Every 5 min PRN, respiratory depression, Starting on Tue01/17/24 at 1132, For 3 doses, For RASS Score -4 or less, respiratory rate of less than 8 breaths/min. Notify provider/service and rapid response team (if available at institution). oxyCODONE IR tablet 10 mg (Roxicodone) 10 mg, oral, Every 4 hours PRN, severe pain or score 7-10 of 10, Starting on Tue01/16/24 at 1517, Second line therapy. If patient is greater than 7 after 2 hours, call service for new order. May administer lower pain scale value dose of prescribed medication based on patient request Given 01/16/2024 4:17 PM FRET SAW OPERATOR 10 mg oxyCODONE IR tablet 10 mg (Roxicodone) 10 mg, oral, Every 4 hours PRN, severe pain or score 7-10 of 10, Starting on Tue01/16/24 at 2126 Given 01/17/2024 7:22 AM FRET SAW OPERATOR 10 mg Given 01/17/2024 2:38 AM FRET SAW OPERATOR 10 mg Given 01/16/2024 9:52 PM FRET SAW OPERATOR 10 mg oxyCODONE IR tablet 10 mg (Roxicodone) 10 mg, oral, Every 4 hours PRN, severe pain or score 7-10 of 10, Starting on Tue01/17/24 at 1115 Given 01/18/2024 10:36 AM FRET SAW OPERATOR 10 mg Given 01/18/2024 5:58 AM FRET SAW OPERATOR 10 mg Given 01/18/2024 1:29 AM FRET SAW OPERATOR 10 mg oxyCODONE IR tablet 10 mg (Roxicodone) 10 mg, oral, Every 3 hours PRN, severe pain or score 7-10 of 10, Starting on Tue01/18/24 at 1309 Given 01/19/2024 12:26 PM FRET SAW OPERATOR 10 mg Given 01/19/2024 9:22 AM FRET SAW OPERATOR 10 mg Given 01/19/2024 5:54 AM FRET SAW OPERATOR 10 mg oxyCODONE IR tablet 5 mg (Roxicodone) 5 mg, oral, Every 3 hours PRN, moderate pain or score 4-6 of 10, Starting on Tue01/18/24 at 1309 polyethylene glycol powder packet 1 packet (Miralax) 1 packet, oral, Daily, First dose on Tue01/17/24 at 0900, Ordered sequence of administration: polyethylene glycol, then bisacodyl until BM achieved. Avoid mixing with starch-based thickened liquids. Given 01/17/2024 9:14 AM FRET SAW OPERATOR 1 packe t polyethylene glycol powder packet 1 packet (Miralax) 1 packet, oral, 2 times daily, First dose (after last modification) on Tue01/17/24 at 2100, Ordered sequence of administration: polyethylene glycol, then bisacodyl until BM achieved. Avoid mixing with starch-based thickened liquids. Given 01/18/2024 9:31 AM FRET SAW OPERATOR 1 packe t Given 01/17/2024 9:14 PM FRET SAW OPERATOR 1 packet rifAMPin capsule 300 mg (Rifadin) 300 mg, oral, 2 times daily, First dose on Tue01/18/24 at 0900, Drug Monitoring Program: Pharmacist to adjust medication dosing based on indication and drug clearance factors., Indications: Bone and/or joint infectionIndications:Bone and/or joint infection Given 01/19/2024 8:14 AM FRET SAW OPERATOR 300 mg Given 01/18/2024 8:45 PM FRET SAW OPERATOR 300 mg Given 01/18/2024 9:31 AM FRET SAW OPERATOR 300 mg sennosides-docusate sodium 8.6-50 mg per tablet 1 tablet (Senokot-S) 1 tablet, oral, 2 times daily, First dose on Tue01/16/24 at 2100, Do not give if patient has diarrhea. Given 01/18/2024 9:31 AM FRET SAW OPERATOR 1 tablet Given 01/17/2024 9:16 PM FRET SAW OPERATOR 1 tablet Given 01/17/2024 9:14 AM FRET SAW OPERATOR 1 tablet sodium chloride 0.9 % injection 10 mL 10 mL, intravenous, As needed, line care, Starting on Tue01/17/24 at 1132, PACU & Post-Op, Peripheral Intravenous Catheter and Rapid Infusion Catheter, prior to blood sampling, post blood transfusion or post blood sampling sodium chloride 0.9 % injection 10 mL 10 mL, intravenous, As needed, line care, Starting on Tue01/17/24 at 1132, PACU & Post-Op, Peripheral Intravenous Catheter and Rapid Infusion Catheter, prior to blood sampling, post blood transfusion or post blood sampling sodium chloride 0.9 % injection 3 mL 3 mL, intravenous, Every 12 hours scheduled, First dose on Tue01/16/24 at 2100, PACU & Post-Op, Peripheral Intravenous Catheter and Rapid Infusion Catheter, when no infusion to maintain patency Given 01/16/2024 8:58 PM FRET SAW OPERATOR 3 mL sodium chloride 0.9 % injection 3 mL 3 mL, intravenous, As needed, line care, Starting on Tue01/17/24 at 1132, PACU & Post-Op, Prior to and following infusion and between multiple consecutive infusions: sodium chloride 0.9 % injection sodium chloride 0.9 % injection 3 mL 3 mL, intravenous, Every 12 hours scheduled, First dose on Tue01/17/24 at 2100, PACU & Post-Op, Peripheral Intravenous Catheter and Rapid Infusion Catheter, when no infusion to maintain patency Given 01/17/2024 9:20 PM FRET SAW OPERATOR 3 mL sodium chloride 0.9 % injection 3 mL 3 mL, intravenous, As needed, line care, Starting on Tue01/17/24 at 1132, PACU & Post-Op, Prior to and following infusion and between multiple consecutive infusions: sodium chloride 0.9 % injection sodium chloride 0.9 % injection 3 mL 3 mL, intravenous, Every 12 hours scheduled, First dose on Tue01/17/24 at 2100, PACU & Post-Op, Peripheral Intravenous Catheter and Rapid Infusion Catheter, when no infusion to maintain patency Given 01/18/2024 9:34 AM FRET SAW OPERATOR 3 mL Given 01/17/2024 9:20 PM FRET SAW OPERATOR 3 mL documented in this encounter Active and Recently Administered Medications Times are shown in FRET SAW OPERATOR. Scheduled Medication Order 01/17/2024 01/18/2024 01/19/2024 acetaminophen tablet 1,000 mg (TylenoL) 1,000 mg, oral, Every 6 hours, First dose (after last modification) on Tue01/17/24 at 0815 0914 (Given - Provider: Deneen Aguilar R.N.)1510 (Given - Provider: Deneen Aguilar R.N.)2114 (Given - Provider: Hilaria Beard R.N.) 012 (Given - Provider: Hilaria Beard R.N.)930 (Given - Provider: Deneen Aguilar R.N.)1312 (Given - Provider: Deneen Aguilar R.N.)194 (Given - Provider: Olive Davis R.N.) 0241 (Given - Provider: Nataliia Ogden R.N.)08 (Given - Provider: Megan Hurley R.N.) aspirin DR tablet 81 mg 81 mg, oral, 2 times daily, First dose (after last modification) on Tue01/17/24 at 0900, Swallow whole. Do NOT crush, chew, or split tablet. 0914 (Given - Provider: Deneen Aguilar R.N.)2114 (Given - Provider: Hilaria Beard R.N.) 09 (Given - Provider: Deneen Aguilar R.N.)2044 (Given - Provider: Olive Davis R.N.) 08 (Given - Provider: Megan Hurley R.N.) atorvastatin tablet 20 mg (Lipitor) 20 mg, oral, Daily at bedtime, First dose on Tue01/16/24 at 2100, atorvastatin 20 mg oral daily was interchanged for pravastatin oral daily 2114 (Given - Provider: Hilaria Beard R.N.) 2044 (Given - Provider: Olive Davis R.N.) buPROPion XL 24 hr tablet 300 mg (Wellbutrin XL) 300 mg, oral, Every morning, First dose on Tue01/17/24 at 0900, Swallow whole. Do NOT crush, chew, or split tablet. 0914 (Given - Provider: Deneen Aguilar R.N.) 0931 (Given - Provider: Deneen Aguilar R.N.) 0815 (Given - Provider: Megan Hurley R.N.) calcium citrate-vitamin D3 315 mg-5 mcg (200 Unit) per tablet 2 tablet (Citracal + D3) 2 tablet, oral, Daily with morning meal, First dose on Tue01/17/24 at 0800, Vitamin D: Units x 0.025 = mcg (e.g. 200 Units = 5 mcg; 250 Units = 6.25 mcg; 5,000 Units = 125 mcg) 0914 (Given - Provider: Deneen Aguilar R.N.) 0931 (Not Given - Provider: Deneen Aguilar R.N. - Reason: Patient/family refused) 813 (Given - Provider: Megan Hurley R.N.) ceFAZolin injection 2 g (Ancef) (COMPLETED) 2 g, intravenous, Every 8 hours, First dose on Tue01/16/24 at 1900, For 2 doses, Start within 8 hours of last IV dose. For immediate IV push administration, reconstitute vial per IVAG or package insert instructions. See IVAG for administration guidelines., Drug Monitoring Program: Pharmacist to adjust medication dosing based on indication and drug clearance factors., Indications: Prophylaxis, surgical 0328 (Given - Provider: Hilaria Beard R.N.) ceFAZolin injection 2 g (Ancef) (CANCELED) 2 g, intravenous, Every 8 hours, First dose (after last modification) on Tue01/17/24 at 1130, For 5 days, Start within 8 hours of last IV dose. For immediate IV push administration, reconstitute vial per IVAG or package insert instructions. See IVAG for administration guidelines., Drug Monitoring Program: Pharmacist to adjust medication dosing based on indication and drug clearance factors., Indications: Bone and/or joint infection 1209 (Given - Provider: Deneen Aguilar R.N.)1836 (Given - Provider: Cleopatra Arrieta R.N.) 0430 (Given - Provider: Hilaria Beard R.N.)1147 (Not Given - Provider: Deneen Aguilar R.N. - Reason: See Provider Order) cefTRIAXone in dextrose (iso osm) IVPB 2 g (Rocephin) 2 g, intravenous, at 200 mL/hr, Administer over 15 Minutes, Every 24 hours, First dose (after last modification) on Tue01/18/24 at 1215, For 41 doses, Drug Monitoring Program: Pharmacist to adjust medication dosing based on indication and drug clearance factors., Indications: Bone and/or joint infection 1312 (New Bag - Provider: Deneen Aguilar R.N.) 1206 (New Bag - Provider: Megan Hurley R.N.) cetirizine tablet 20 mg (ZyrTEC) 20 mg, oral, 2 times daily, First dose (after last modification) on Tue01/17/24 at 0900, Drug Monitoring Program: Pharmacist to adjust medication dosing based on indication and drug clearance factors. 0944 (Given - Provider: William Mike R.N.)2115 (Given - Provider: Hilaria Beard R.N.) 0931 (Given - Provider: Deneen Aguilar R.N.)2045 (Given - Provider: Olive Davis R.N.) 0813 (Given - Provider: Megan Hurley R.N.) ibuprofen tablet 400 mg 400 mg, oral, Every 6 hours, First dose (after last modification) on Tue01/18/24 at 0715, Take with food or milk if GI disturbances occur with use. 0931 (Given - Provider: Deneen Aguilar R.N.)1312 (Given - Provider: Deneen Aguilar R.N.)1947 (Given - Provider: Olive Davis R.N.) 0015 (Given - Provider: Nataliia Ogden R.N.)0623 (Given - Provider: Nataliia Ogden R.N. - Comment: verified by 2nd RN,)1227 (Given - Provider: Megan Hurley R.N.) levothyroxine tablet 100 mcg 100 mcg, oral, Daily, First dose on Tue01/17/24 at 0900 0914 (Given - Provider: Deneen R Aguilar, R.N.) 0931 (Given - Provider: Deneen Aguilar R.N.) 0814 (Given - Provider: Megan Hurley R.N.) lidocaine (PF) 10 mg/mL (1 %) injection 0-10 mL (Xylocaine) 0-10 mL, intradermal, Once, On Tue01/18/24 at 1215, For 1 dose, Administer intradermally prior to PICC placement. Patient 18 years and older - 1 mL (may repeat twice up to 1 mL each PICC insertion attempt if patient complains or pain or discomfort at injection site. 1215 (Due) ddhspfxlllfg-pesq-OP-Ca-m inerals 400 mcg (folic acid) tablet 1 tablet 1 tablet, oral, Daily, First dose on Tue01/17/24 at 0900 14 (Given - Provider: Deneen Aguilar R.N.) 31 (Not Given - Provider: Deneen Aguilar R.N. - Reason: See Provider Order) 14 (Given - Provider: Megan Hurley R.N.) polyethylene glycol powder packet 1 packet (Miralax) (CANCELED) 1 packet, oral, Daily, First dose on Tue01/17/24 at 0900, Ordered sequence of administration: polyethylene glycol, then bisacodyl until BM achieved. Avoid mixing with starch-based thickened liquids. 913 (Given - Provider: Deneen Aguilar R.N.) polyethylene glycol powder packet 1 packet (Miralax) 1 packet, oral, 2 times daily, First dose (after last modification) on Tue01/17/24 at 2100, Ordered sequence of administration: polyethylene glycol, then bisacodyl until BM achieved. Avoid mixing with starch-based thickened liquids. 2113 (Given - Provider: Hilaria Beard R.N.) 930 (Given - Provider: Deneen Aguilar R.N.)2045 (Not Given - Provider: Olive Davis RBar - Reason: Patient/family refused) 17 (Not Given - Provider: Megan Hurley R.N. - Reason: Patient/family refused) rifAMPin capsule 300 mg (Rifadin) 300 mg, oral, 2 times daily, First dose on Tue01/18/24 at 0900, Drug Monitoring Program: Pharmacist to adjust medication dosing based on indication and drug clearance factors., Indications: Bone and/or joint infection 0931 (Given - Provider: Deneen Aguilar R.N.)2044 (Given - Provider: Olive Davis R.N.) 813 (Given - Provider: Megan Hurley R.N.) sennosides-docusate sodium 8.6-50 mg per tablet 1 tablet (Senokot-S) 1 tablet, oral, 2 times daily, First dose on Tue01/16/24 at 2100, Do not give if patient has diarrhea. 0914 (Given - Provider: Deneen Aguilar R.N.)2115 (Given - Provider: Hilaria Beard R.N.) 0931 (Given - Provider: Deneen Aguilar R.N.)2045 (Not Given - Provider: Olive Davis R.N. - Reason: Patient/family refused) 18 (Not Given - Provider: Megan Hurley R.N. - Reason: Patient/family refused) sodium chloride 0.9 % injection 10-30 mL 10-30 mL, intravenous, Once, On Tue01/18/24 at 1215, For 1 dose, 10 mL flush to each lumen 1215 (Due) sodium chloride 0.9 % injection 3 mL (CANCELED) 3 mL, intravenous, Every 12 hours scheduled, First dose on Tue01/17/24 at 2100, PACU & Post-Op, Peripheral Intravenous Catheter and Rapid Infusion Catheter, when no infusion to maintain patency 2119 (Given - Provider: Hilaria Beard R.N.) 102 (Not Given - Provider: Deneen Aguilar R.N. - Reason: Other - Comment: duplicate order)2033 (Not Given - Provider: Olive Davis R.N. - Reason: Contraindicated) sodium chloride 0.9 % injection 3 mL (CANCELED) 3 mL, intravenous, Every 12 hours scheduled, First dose on Tue01/17/24 at 2100, PACU & Post-Op, Peripheral Intravenous Catheter and Rapid Infusion Catheter, when no infusion to maintain patency 2119 (Given - Provider: Hilaria Beard R.N.) 0934 (Given - Provider: Deneen Aguilar R.N.) Continuous Medication Order 01/17/2024 01/18/2024 01/19/2024 fentaNYL citrate (PF) 50 mcg/mL HEAD PORTER bag solution (Sublimaze) (CANCELED) HEAD PORTER Dose: 20 mcg, HEAD PORTER Lockout: 10 Minutes, Continuous Rate: 0 mcg/hr, Four Hour Limit: 400 mcg, intravenous, Continuous, Starting on Tue01/17/24 at 1045, Prescriber to manage. Administer with a compatible IV carrier fluid. 1108 (New Bag - Provider: Deenen Aguilar R.N. - Comment: Set up with Anuel Andujar RN)1940 (Handoff - Provider: Hilaria Beard R.N.) 0056 (Handoff - Provider: Hilaria Beard R.N.)0447 (Handoff - Provider: Hilaria Beard R.N.)0721 (Handoff - Provider: Deneen Aguilar R.N. - Comment: Handoff with SELENA Manrique)1418 (Stopped - Provider: Deneen Aguilar R.N.) HYDROmorphone (PF) 10 mcg/mL in NaCl 0.9% 100 mL epidural (Dilaudid) (CANCELED) epidural, at 10 mL/hr, Continuous, Starting on Tue01/16/24 at 2145, Already upstairs, Location: Lumbar 0722 (Handoff - Provider: Deneen Aguilar R.N. - Comment: Handoff with SELENA Manrique)0934 (New Bag - Provider: Deneen Aguilar R.N.)1030 (Stopped - Provider: Deneen Aguilar R.N. - Comment: Epidual became dislodged) PRN Medication Order 01/17/2024 01/18/2024 01/19/2024 benzocaine-menthoL 15-3.6 mg per lozenge 1 lozenge (CepacoL) 1 lozenge, oral, As needed, sore throat, Starting on Tue01/16/24 at 1517 bisacodyL suppository 10 mg (Dulcolax) 10 mg, rectal, Daily PRN, constipation, Starting on Tue01/16/24 at 1517, Ordered sequence of administration: polyethylene glycol, then bisacodyl until BM achieved. 1036 (Given - Provider: Deneen Aguilar RMireya.) calcium carbonate chewable tablet 400 mg of calcium (Tums) 400 mg of calcium, oral, Every 2 hour PRN, indigestion, Starting on Tue01/16/24 at 1517, Doses listed are in mg of elemental calcium. Take with food. 500 mg calcium carbonate contains 200 mg of elemental calcium. D5W infusion 1-999 mL/hr, intravenous, As needed, Medications Incompatible with 0.9% NaCL, Starting on Tue01/18/24 at 2215, Infuse at the same rate as the piggyback until tubing clears or up to a volume of 20 mL pre and post infusion for medications incompatible with 0.9% NaCL. Use 50 mL bag then discard. hydrocortisone 1 % cream 1 Application 1 Application, topical, 4 times daily PRN, pruritus, Starting on Tue01/16/24 at 1517 ibuprofen tablet 800 mg (CANCELED) 800 mg, oral, 3 times daily PRN, moderate pain or score 4-6 of 10, Starting on Tue01/16/24 at 1517, Take with food or milk if GI disturbances occur with use. 0914 (Given - Provider: Deneen Aguilar RMireya.) magnesium hydroxide suspension 30 mL (Milk of Magnesia) 30 mL, oral, Daily PRN, constipation, Starting on Tue01/17/24 at 1613 1836 (Given - Provider: Cleopatra Arrieta R.N.) 1036 (Given - Provider: Deneen Aguilar RMireya.) NaCl 0.9% infusion 1-999 mL/hr, intravenous, As needed, Between Consecutive Piggyback Medications, Starting on Tue01/18/24 at 2215, For 7 days, Infuse at the same rate as the piggyback until tubing clears or up to a volume of 20 mL. Select for IV medication administration when no maintenance IV available or when IV medications are not compatible with maintenance fluid. NaCl 0.9% infusion 1-999 mL/hr, intravenous, As needed, Post Medications (Hazardous/Low Fluid Volume), Starting on Tue01/18/24 at 2215, For 7 days, Infuse at the same rate as the medication until tubing cleared of medication, then discard. nalbuphine injection 2.5 mg (Nubain) 2.5 mg, intravenous, Every 4 hours PRN, itching, Starting on Tue01/17/24 at 1132, For 4 doses, PACU & Post-Op naloxone injection 0.1 mg (Narcan) 0.1 mg, intravenous, Every 5 min PRN, respiratory depression, Starting on Tue01/17/24 at 1132, For 3 doses, For RASS Score -4 or less, respiratory rate of less than 8 breaths/min. Notify provider/service and rapid response team (if available at institution). naloxone injection 0.2 mg (Narcan) 0.2 mg, intravenous, As needed, respiratory depression, Starting on Tue01/16/24 at 1517, For RASS Score -4 or less, respiratory rate of less than 8 breaths/min. Notify provider/service and rapid response team (if available at institution). oxyCODONE IR tablet 10 mg (Roxicodone) (CANCELED)(Linked Group 1) 10 mg, oral, Every 4 hours PRN, severe pain or score 7-10 of 10, Starting on Tue01/16/24 at 2126 0238 (Given - Provider: Hilaria Beard R.N.)0722 (Given - Provider: Deneen Aguilar R.N.) oxyCODONE IR tablet 10 mg (Roxicodone) (CANCELED) 10 mg, oral, Every 4 hours PRN, severe pain or score 7-10 of 10, Starting on Tue01/17/24 at 1115 1208 (Given - Provider: Deneen Aguilar R.N.)1640 (Given - Provider: Deneen Aguilar R.N.)2115 (Given - Provider: Hilaria Beard R.N.) 0129 (Given - Provider: Farhana Hanson.Demian.)0558 (Given - Provider: Farhana Hanson.N.)1036 (Given - Provider: Deneen Aguilar R.N.) oxyCODONE IR tablet 10 mg (Roxicodone)(Linked Group 2) 10 mg, oral, Every 3 hours PRN, severe pain or score 7-10 of 10, Starting on Tue01/18/24 at 1309 1416 (Given - Provider: Deneen Aguilar R.N.)1728 (Given - Provider: Tasneem Candelario R.N.)2044 (Given - Provider: Olive Davis R.N.) 0011 (Given - Provider: Nataliia Ogden R.N.)0554 (Given - Provider: Nataliia Ogden R.N.)0922 (Given - Provider: Bisi Nair R.N.)1226 (Given - Provider: Megan Hurley R.N.) oxyCODONE IR tablet 5 mg (Roxicodone)(Linked Group 2) 5 mg, oral, Every 3 hours PRN, moderate pain or score 4-6 of 10, Starting on Tue01/18/24 at 1309 1416 (See Alternative - Provider: Deneen Aguilar R.N.)1728 (See Alternative - Provider: Tasneem Candelario R.N.)2044 (See Alternative - Provider: Olive Davis R.N.) 001 (See Alternative - Provider: Nataliia Ogden R.N.)0554 (See Alternative - Provider: Nataliia Ogden R.N.)0922 (See Alternative - Provider: Bisi Nair R.N.)1226 (See Alternative - Provider: Megan Hurley R.N.) sodium chloride 0.9 % injection 10 mL 10 mL, intravenous, As needed, line care, Starting on Tue01/16/24 at 1319, PACU & Post-Op, Peripheral Intravenous Catheter and Rapid Infusion Catheter, prior to blood sampling, post blood transfusion or post blood sampling sodium chloride 0.9 % injection 10 mL 10 mL, intravenous, As needed, line care, Starting on Tue01/17/24 at 1132, PACU & Post-Op, Peripheral Intravenous Catheter and Rapid Infusion Catheter, prior to blood sampling, post blood transfusion or post blood sampling sodium chloride 0.9 % injection 10 mL 10 mL, intravenous, As needed, line care, Starting on Tue01/17/24 at 1132, PACU & Post-Op, Peripheral Intravenous Catheter and Rapid Infusion Catheter, prior to blood sampling, post blood transfusion or post blood sampling sodium chloride 0.9 % injection 3 mL 3 mL, intravenous, As needed, line care, Starting on Tue01/16/24 at 1319, PACU & Post-Op, Prior to and following infusion and between multiple consecutive infusions: sodium chloride 0.9 % injection sodium chloride 0.9 % injection 3 mL 3 mL, intravenous, As needed, line care, Starting on Tue01/17/24 at 1132, PACU & Post-Op, Prior to and following infusion and between multiple consecutive infusions: sodium chloride 0.9 % injection sodium chloride 0.9 % injection 3 mL 3 mL, intravenous, As needed, line care, Starting on Tue01/17/24 at 1132, PACU & Post-Op, Prior to and following infusion and between multiple consecutive infusions: sodium chloride 0.9 % injection Linked Groups Order Group 1: oxyCODONE IR tablet 5 mg (Roxicodone) (CANCELED) 5 mg, oral, Every 4 hours PRN, moderate pain or score 4-6 of 10, Starting on Tue01/16/24 at 2126 Or oxyCODONE IR tablet 10 mg (Roxicodone) (CANCELED)Jump to med 10 mg, oral, Every 4 hours PRN, severe pain or score 7-10 of 10, Starting on Tue01/16/24 at 2126 Group 2: oxyCODONE IR tablet 5 mg (Roxicodone)Jump to med 5 mg, oral, Every 3 hours PRN, moderate pain or score 4-6 of 10, Starting on Tue01/18/24 at 1309 Or oxyCODONE IR tablet 10 mg (Roxicodone)Jump to med 10 mg, oral, Every 3 hours PRN, severe pain or score 7-10 of 10, Starting on Tue01/18/24 at 1309 documented in this encounter Additional Health Concerns Assessment Noted Time PHQ-9 Depression Total Score: 7 12/05/19 24 11:33 PM CDT documented as of this encounter Care Teams Mechanical Engineering Officer Relationship Specialty Start Date End Date Treasure Baires M.D. [address] [place] [phone] PCP - General Family Medicine 09/08/23 documented as of this encounter
--- OUTSIDE RECORDS SUMMARY | 2024-02-09 07:09 | XMS_ITS | Encounter Summary ---
Author Organization [facility] Address [address] [place] [address] Care Team Providers Care Supermarket Manager Name Role Phone Treasure Baires M.D. Primary Care Provider [phone] Reason for Visit * Auth/Cert (Routine) Specialty Diagnoses / Procedures Referred By Cortes mak Referred To Contact Diagnoses Aftercare Total Knee Arthroplasty Aftercare Total Knee Arthroplasty [Z47.1, Z96.659] Procedures [place] MANIP KNEE JT W ANES ARTHROPLASTY REPLACEMENT TOTAL KNEE, LYSIS OF ADHESIONS Brock Milton M.D. [address] [place] [address] Phone: tel: fax: Referral ID Status Reason Start Date Expiration Date Visits Re quested Visits Authorized [id number] 1 1 Encounter Details Date Type Department Care Team (Late st Contact Info) Description 01/16/2024 10:54 AM EXHIBITS MANAGER Anesthesia Event [facility] OR [address] [place] [address] [phone] Satish Garcia III, M.D. [address] [place] [address] [phone] Dario Prajapati M.D. [address] [place] [address] Anesthesia Record Procedure Summary Procedure Name Responsible Anesthesiologist Anesthesia Start Time Anesthesia Stop Time LEFT TOTAL KNEE LYSIS OF ADHESIONS, POLYETHYLENE EXCHANGE (Left: Knee) Satish Garcia III, M.D. 01/16/24 1054 01/16/24 1322 Events Date Time Event Comment 01/16/2024 1044 1054 An Start Machine/Equipme nt Checked Infection Precautions Followed Procedure/Site Verified NPO Status Verified Supine Standard ASA Monitors Applied 1055 Anesthesia Time Out 1056 Block Start 1058 Block End 1108 An Induction 1108 An Intubation 1112 Turnover to Proceduralist 1128 Proc Start 1249 Proc Fin 1302 Turnover to ANE Staff 1312 Airway Removal Criteria Met 1312 Extubation/Airway Removed 1312 an stop data 1322 An End I completed my handoff to the receiving staff during which we 1. Identified the patient 2. Identified the responsible provider 3. Reviewed the pertinent medical history 4. Discussed the surgical course 5. Reviewed intra-op anesthesia management and issues during anesthesia 6. Set expectations for post-procedure period 7. Allowed opportunity for questions and acknowledgement of understanding. Meds Name Total midazolam 1 mg/mL injection 1 mg fentanyl injection 50 mcg/mL 100 mcg lidocaine 2% (mg) injection 70 mg succinylcholine 20 mg/mL injection 70 mg ondansetron 4 mg/2 mL injection 4 mg propofol 10 mg/mL infusion 586.16 mg propofol 10 mg/mL injection 140 mg lidocaine (Xylocaine) PF injection 1.5% 3 mL dexAMETHasone (Decadron) injection 4 mg/ mL 4 mg tranexamic acid in NaCl IVPB 1,000 mg (C yklokapron) 1 g tranexamic acid in NaCl IVPB 1,000 mg (C yklokapron) 1 g ceFAZolin injection 2,000 mg (Ancef) 2 g HYDROmorphone (Dilaudid) dilution PF inj ection 100 mcg/mL 300 mcg HYDROmorphone (Dilaudid) PF injection 2 mg/mL 0.4 mg HYDROmorphone (PF) 10 mcg/mL in NaCl 0.9 % 100 mL epidural (Dilaudid) 0.92 mL Lactated Ringers Free Drip 500 mL * Agents No agents on file. * Blood No blood administrations on file. Lines, Drains, and Airways Type Details Placement Removal Phototherapy - UVB (mJ) Whole Body; 10/15/2009/27 0000 by Ketty Dimas RPrakashN. Wound 01/16/24; 1229; N; Incision; Knee; Anterior, Left 01/16/24 1229 by Otis Gold R.N. Wound 07/04/23; 1349; Y; Laceration; Hand; Right; 01/17/24; 0700; Wound healed 07/04/23 1349 by Chiqui Damon R.N. 01/17/24 0700 by Deneen Aguilar RPrakashN. Wound 07/13/23; N; Incisio n; Pretibial; Left; 01/17/24; 0700; Wound healed 07/13/23 0000 by Treasure Villanueva RPrakashN. 01/17/24 0700 by Deneen Aguilar RPrakashN. Wound 09/12/23; N; Incisio n; Knee; Anterior, Left; 01/16/24; 1229; Wound healed 09/12/23 0000 by Treasure Villanueva R.N. 01/16/24 1229 by Otis Gold R.N. Peripheral IV Placement Date: 01/16/24; Placement Time: 1036; Catheter Size: 20 G; Orientation: Posterior, Right; Location: Hand; Site Prep: Chlorhexidine (Preferred); Technique: Anatomical landmarks; Inserted by: pippa; Insertion Attempts: 1; Removal Date: 01/18/24; Removal Time: 1158; Removal Reason: Leaking 01/16/24 1036 by Markie Kapoor 01/18/24 1158 by Hay Borja ETT Placement Date: 01/16/24; Placement Time: 1108 (created via procedure documentation); Mask Ventilation: Easy mask; Technique: Direct laryngoscopy, intubation; Type: Standard ETT; Single Lumen Tube Size: 7 mm; Cuffed: Yes; Blade Size: MAC 3; Location: Oral; Grade View: Grade 2A; Placement Verification: Bilateral breath sounds, Positive ETCO2, Symmetrical chest wall movement; Removal Date: 01/16/24; Removal Time: 1312 01/15/24 1108 by Dario Prajapati M.D. 01/16/24 1312 by Dario Prajapati M.D. Epidural Catheter Placement Date: 01/16/24; Placement Time: 1109 (created via procedure documentation); Location: Lumbar; Removal Date: 01/17/24; Removal Time: 1045 01/16/24 1110 by Dario Prajapati M.D. 01/17/24 1045 by Melissa Jauregui R.N. documented in this encounter Social History Tobacco Use Types Packs/Day Years Used Date Smoking Tobacco: Former Cigarettes 1 2002 Smokeless Tobacco: Never Alcohol Use Standard Drinks/Week Comments Yes 2 (1 standard drink = 0.6 oz pur e alcohol) [facility] Utilities Answer Date Recorded In the past 12 months has e [employer], gas, oil, or water [employer] threatened to shut off services in your [...] often do you attend chur ch or mosque services? 1 to 4 times per year 09/13/2021 Do you belong to any clubs o r organizations such as voodoo groups, unions, fraternal or athletic groups, or [...] Answer Date Recorded PHQ-2 Score 3 12/05/2023 [facility] - Occupational Stress Questionnaire Answer Date [...] your living situation today? I have a [facility] place to live 01/17/2024 Education Answer Date Recorded What is the highest level of school you have completed or the highest degree you have received? Doctorate 09/05/2018 Comments No Sex and Gender Information Value Date Recorded Sex Assigned at Female 12/19/2016 7:29 PM EXHIBITS MANAGER Legal Sex Female 7:58 AM EXHIBITS MANAGER Gender Identity Female 12/19/2016 7:29 PM EXHIBITS MANAGER Sexual Orientation Lesbian or [place] 03/12/2020 12 :23 PM EXHIBITS MANAGER documented as of this encounter OR Notes * Anesthesia Postprocedure Evaluation - Satish Garcia III, M.D. - 01/16/2024 6:37 PM CST Patient: Shreya Douglas Procedure Summary Date: 01/16/24 Room / Location: [place] [address] / [facility] in [place], [place] Anesthesia Start: 1054 Anesthesia Stop: 1322 Procedure: LEFT TOTAL KNEE LYSIS OF ADHESIONS, POLYETHYLENE EXCHANGE (Left: Knee) Diagnosis: Aftercare Total Knee Arthroplasty (Aftercare Total Knee Arthroplasty [Z47.1, Z96.659].) Providers: Brock Milton M.D. Responsible Provider: Satish Garcia III, M.D. Anesthesia Type: general with pain block ASA Status: 2 Anesthesia Type: general with pain block Last vitals Vitals Value Taken Time BP 130/104 01/16/24 1445 Temp 36.3 ??C 01/16/24 1433 Pulse 63 01/16/24 1500 Resp 13 01/16/24 1455 SpO2 99 % 01/16/24 1500 Vitals shown include unfiled device data. Please reference Vitals flowsheet for most recent vital signs. Anesthesia Post Evaluation Patient Disposition: general care unit Cardiovascular status: hemodynamics (HR & BP) acceptable Respiratory status: patent airway with spontaneous effort Temperature: normothermic Oxygen requirements: room air Level of consciousness: awake Pain score: pain adequately controlled and/or at baseline Post Op nausea/vomiting: none Hydration status: euvolemic Notable Events No notable events documented. BITS MANAGER * Anesthesia Procedure Notes - Dario Prajapati M.D. - 01/16/2024 11:10 AM CSTAssociated Order(s): Regional Block Regional Block Date/Time: 01/16/2024 11:10 AM Performed [...] completed successfully: successful procedure Notable Events: none Cosigned by Satish Garcia III, M.D. at 01/16/2024 6:38 PM EXHIBITS MANAGER BITS MANAGER BITS MANAGER * Anesthesia Procedure Notes - Dario Prajapati M.D. - 01/16/2024 11:08 AM CSTAssociated Order(s): Airway Airway Date/Time: 01/16/2024 11:08 AM Performed by: [...] anesthesia POST PROCEDURE DETAILS: Procedure outcome: successful Cosigned by Satish Garcia III, M.D. at 01/16/2024 6:38 PM EXHIBITS MANAGER BITS MANAGER BITS MANAGER * Anesthesia Preprocedure Evaluation - Satish Garcia III, M.D. - 01/16/2024 10:43 AM CST Preprocedure Anesthesia & H&P Assessment Procedure Summary Date/Time: 01/16/24 1018 Procedure: LEFT TOTAL KNEE LYSIS OF ADHESIONS, POSSIBLE POLYETHYLENE EXCHANGE, PROCEED INDICATED. (Left) Diagnosis: Aftercare Total Knee Arthroplasty [Z47.1, Z96.659] Pre-op diagnosis: Aftercare Total Knee Arthroplasty [Z47.1, Z96.659]. Location: [address] [facility] / [facility] in [place], [place] Providers: Brock Milton M.D. Pertinent components of the patient's history [...] Major GI (+) Gastroesophageal Reflux Disease NOS Other (+) Overweight Body Mass Index 25-29.9 Adult OBJECTIVE PHYSICAL EXAMINATION Airway (HEENT) Mallampati: I TM Distance: >3 FB Neck ROM: Full Mouth Opening: >3 cm Cardiovascular Rhythm: Regular Rate: Normal Cardiovascular Assessment: cardiovascular normal Functional Capacity: <4 METS Pulmonary Pulmonary Assessment: Clear General / Constitutional Constitutional Assessment: Normal General State of Health:: calm Neurological Neurologic Assessment: alert, alert and oriented x 3 and gait instability Dental Dental Assessment: dentition intact ASSESSMENT / PLAN ANESTHESIA PLAN ASA: 2 Anesthesia Plan: general with pain block Consented for epidural for continuous motion rehab and complex pain control. Patient seen and allergies reviewed, anesthesia plan and risks discussed directly with patient /legal guardian or through an psychiatric arnp. Risks/Benefits/Alternatives of Blood transfusion discussed with patient / legal guardian, includingan opportunity to ask questions and/or decline some or all transfusion therapies. The patient / legal guardian consented to the use of all blood products, as deemed medically necessary Approval to Proceed: approved for anesthesia BITS MANAGER documented in this encounter Plan of Treatment Upcoming Encounters Date Type Department Care Team (Late st Contact Info) Description 03/01/2024 10:00 AM EXHIBITS MANAGER Comprehensive Visit Section of Infectious Diseases in [place], [place] [address] [place] [phone] Silvana Marrufo M.D. [address] [place] [phone] 03/01/2024 10:40 AM EXHIBITS MANAGER Lab Department of Laboratory Medicine and Pathology, [facility], in [place], [place] [address] [place] [phone] Jolynn Cole P.A.-C., M.S. [address] [place] [phone] 03/01/2024 11:15 AM EXHIBITS MANAGER Appointment Department of Radiology, [facility] in [place], [place] [address] [place] [phone] Jolynn Cole P.A.-C., M.S. [address] [place] [phone] 03/01/2024 12:00 PM EXHIBITS MANAGER Office Visit Department of Orthopedic Surgery in [place] [id number] [place] [phone] Jolynn Cole P.A.-C., M.S. [address] [place] [phone] 03/13/2024 3:20 PM EXHIBITS MANAGER Comprehensive Visit Department of Family Medicine, [facility], in [place], [place] [address] [phone] Treasure Baires M.D. [address] [place] [phone] 03/14/2024 1:30 PM EXHIBITS MANAGER Virtual Visit Section of Infectious Diseases in [place], [place] [address] [place] [phone] Silvana Marrufo M.D. [address] [place] [phone] documented as of this encounter Procedures Procedure Name Priority Date/Time Associated Diagnosis Comments [place] INJ INF/BOLUS LUMB/SACRAL DX WO IMG Routine 01/16/2024 11:10 AM EXHIBITS MANAGER LDA ANE EPIDURAL CATHETER Routine 01/16/2024 11:10 AM EXHIBITS MANAGER LDA ANE ENDOTRACHEAL AIRWAY Routine 01/16/2024 11:08 AM EXHIBITS MANAGER documented in this encounter Results * LDA ANE EPIDURAL CATHETER, [place] INJ INF/BOLUS LUMB/SACRAL DX WO IMG (01/16/2024 11:10 AM EXHIBITS MANAGER) Narrative Satish Garcia III, M.D. - 01/16/2024 11:10 AM EXHIBITS MANAGER Dario Prajapati M.D. 01/16/2024 11:10 AM Regional [...] LDA ANE ENDOTRACHEAL AIRWAY (01/16/2024 11:08 AM EXHIBITS MANAGER) Narrative Satish Garcia III, M.D. - 01/16/2024 11:08 AM EXHIBITS MANAGER Dario Prajapati M.D. 01/16/2024 11:09 AM Airway [...] III, M.D. ANESTHESIA ORDERABLES F inal Result documented in this encounter Visit Diagnoses Not on filedocumented in this encounter Administered Medications Inactive Administered Medications - up to 3 most recent administrations Medication Order MAR Action Action Date Dose Rate Site ceFAZolin injection 2,000 mg (Ancef) 2,000 mg (rounded from 1,837.5 mg = 25 mg/kg 73.5 kg), intravenous, Once, On 01/16/24 at 1030, For 1 dose, Intra-Op, Administer within 1 hour prior to surgical incision For immediate IV push administration, reconstitute vial per IVAG or package insert instructions. See IVAG for administration guidelines., Drug Monitoring Program: Pharmacist to adjust medication dosing based on indication and drug clearance factors., Indications: Prophylaxis, surgicalIndications:Prophylaxis, surgical Given 01/16/2024 11:26 AM EXHIBITS MANAGER 2 g dexAMETHasone injection (Decadron) intravenous, As needed, Starting on Tue01/16/24 at 1114, Anesthesia Intra-op Given 01/16/2024 11:14 AM EXHIBITS MANAGER 4 mg fentaNYL injection (Sublimaze) intravenous, As needed, Starting on Tue01/16/24 at 1054, Anesthesia Intra-op Given 01/16/2024 11:08 AM EXHIBITS MANAGER 50 mcg Given 01/16/2024 10:54 AM EXHIBITS MANAGER 50 mcg HYDROmorphone (PF) 10 mcg/mL in NaCl 0.9% 100 mL epidural (Dilaudid) epidural, at 10 mL/hr, Continuous, Starting on Tue01/16/24 at 1100, For 3 days, Anesthesia Intra-op, Location: Lumbar Rate/Dose Change 01/16/2024 1:50 PM EXHIBITS MANAGER 10 mL/hr New Bag 01/16/2024 1:11 PM EXHIBITS MANAGER 5 mL/hr 5 mL/hr HYDROmorphone (PF) injection (Dilaudid) intravenous, As needed, Starting on Tue01/16/24 at 1144, Anesthesia Intra-op Given 01/16/2024 11:44 AM EXHIBITS MANAGER 0.4 mg HYDROmorphone dilution injection (Dilaudid) epidural, As needed, Starting on Tue01/16/24 at 1123, Anesthesia Intra-op Given 01/16/2024 11:23 AM EXHIBITS MANAGER 300 mcg Lactated Ringer's intravenous, Continuous Infusion: Per Instructions PRN, Starting on Tue01/16/24 at 1054, Anesthesia Intra-op New Bag 01/16/2024 10:54 AM EXHIBITS MANAGER lidocaine (PF) (cardiac) injection intravenous, As needed, Starting on Tue01/16/24 at 1108, Anesthesia Intra-op Given 01/16/2024 11:08 AM EXHIBITS MANAGER 70 mg lidocaine (PF) 15 mg/mL (1.5 %) injection (Xylocaine) epidural, As needed, Starting on Tue01/16/24 at 1057, Anesthesia Intra-op Given 01/16/2024 10:57 AM EXHIBITS MANAGER 3 mL midazolam (PF) injection (Versed) intravenous, As needed, Starting on Tue01/16/24 at 1054, Anesthesia Intra-op Given 01/16/2024 10:54 AM EXHIBITS MANAGER 1 mg ondansetron (PF) injection (Zofran) intravenous, As needed, Starting on Tue01/16/24 at 1235, Anesthesia Intra-op Given 01/16/2024 12:35 PM EXHIBITS MANAGER 4 mg propofol 10 mg/mL infusion (Diprivan) intravenous, Continuous Infusion: Per Instructions PRN, Starting on Tue01/16/24 at 1108, Anesthesia Intra-op Rate/Dose Change 01/16/2024 12:22 PM EXHIBITS MANAGER 50 mcg/kg/min 22.05 mL/hr Rate/Dose Change 01/16/2024 12:17 PM EXHIBITS MANAGER 75 mcg/kg/min 33. 075 mL/hr New Bag 01/16/2024 11:08 AM EXHIBITS MANAGER 100 mcg/kg/min 44.1 mL/ hr propofoL injection (Diprivan) intravenous, As needed, Starting on Tue01/16/24 at 1108, Anesthesia Intra-op Given 01/16/2024 11:08 AM EXHIBITS MANAGER 140 mg succinylcholine (PF) injection (Anectine) intravenous, As needed, Starting on Tue01/16/24 at 1108, Anesthesia Intra-op Given 01/16/2024 11:08 AM EXHIBITS MANAGER 70 mg tranexamic acid in NaCl IVPB 1,000 mg (Cyklokapron) 1,000 mg (1 g), intravenous, at 300 mL/hr, Administer over 20 Minutes, Once, On Tue01/16/24 at 1030, For 1 dose, Intra-Op, Administer in OR upon induction Given 01/16/2024 11:14 AM EXHIBITS MANAGER 1 g tranexamic acid in NaCl IVPB 1,000 mg (Cyklokapron) 1,000 mg (1 g), intravenous, at 300 mL/hr, Administer over 20 Minutes, Once, On Tue01/16/24 at 1030, For 1 dose, Intra-Op, Administer in OR just before dropping tourniquet Given 01/16/2024 12:29 PM EXHIBITS MANAGER 1 g documented in this encounter Additional Health Concerns Assessment Noted Time PHQ-9 Depression Total Score: 7 12/05/19 24 11:33 PM CDT documented as of this encounter Care Teams Supermarket Manager Relationship Specialty Start Date End Date Treasure Baires M.D. [address] [place] [phone] PCP - General Family Medicine 09/08/23 documented as of this encounter
--- OUTSIDE RECORDS SUMMARY | 2024-02-09 07:09 | XMS_ITS | Encounter Summary ---
Author Organization [facility] Address [address] [place] [phone] Care Team Providers Care Supervisor Tree Trimming Name Role Phone Treasure Baires M.D. Primary Care Provider [phone] Reason for Visit * Auth/Cert (Routine) Specialty Diagnoses / Procedures Referred By Cortes mak Referred To Contact Diagnoses Aftercare Total Knee Arthroplasty Aftercare Total Knee Arthroplasty [Z47.1, Z96.659] Procedures TX MANIP KNEE JT W ANES ARTHROPLASTY REPLACEMENT TOTAL KNEE, LYSIS OF ADHESIONS Brock Milton M.D. [address] [place] [address] Phone: tel: fax: Referral ID Status Reason Start Date Expiration Date Visits Re quested Visits Authorized [id number] 1 1 Encounter Details Date Type Department Care Team (Late st Contact Info) Description 01/16/2024 10:18 AM HUMAN CAPITAL MANAGER - 01/16/2024 1:58 PM HUMAN CAPITAL MANAGER Surgery [facility] MAIN OR [address] [place] [phone] Brock Milton M.D. 200 [place] [phone] LEFT TOTAL KNEE LYSIS OF ADHESIONS, POLYETHYLENE EXCHANGE Social History Tobacco Use Types Packs/Day Years Used Date Smoking Tobacco: Former Cigarettes 2002 Smokeless Tobacco: Never Alcohol Use Standard Drinks/Week Comments Yes 2 (1 standard drink = 0.6 oz pur e alcohol) [facility] Utilities Answer Date Recorded In the past 12 months has th e electric, gas, oil, or water company [...] when you are drinking? 1 or 2 08/07/202 2 Q3: How often do you have si x or more drinks on one occasion? Never 09/13/2021 Overall Financial Resource Strain (CARDIA) Answe r Date Recorded How hard is it for you to pa y for the very basics like food, housing, medical care, and heating? Not hard at all 10/28/2022 PHQ-2 Answer Date Recorded PHQ-2 Score 3 12/05/2023 [facility] - Occupational Stress Questionnaire Answer [...] Sex Assigned at Female 12/19/2016 7:29 PM HUMAN CAPITAL MANAGER Legal Sex Female 7:58 AM HUMAN CAPITAL MANAGER Gender Identity Female 12/19/2016 7:29 PM HUMAN CAPITAL MANAGER Sexual Orientation Lesbian or Turcios 03/12/2020 12 :23 PM HUMAN CAPITAL MANAGER documented as of this encounter Last Filed Vital Signs Vital Sign Reading Time Taken Comments Blood Pressure 155/80 01/16/2024 1:45 PM HUMAN CAPITAL MANAGER Pulse 77 01/16/2024 1:55 PM HUMAN CAPITAL MANAGER Temperature 36.1 C (97 F) 01/16/2024 1:45 PM HUMAN CAPITAL MANAGER Respiratory Rate 11 01/16/2024 1:55 PM HUMAN CAPITAL MANAGER Oxygen Saturation 100% 01/16/2024 1:55 PM HUMAN CAPITAL MANAGER Inhaled Oxygen Concentration - - Weight 73.5 kg (162 lb 0.6 oz) 01/16/2024 8:03 A M HUMAN CAPITAL MANAGER Height 163 cm (5' 4.17) 01/16/2024 8:03 AM HUMAN CAPITAL MANAGER Body Mass Index 27.66 01/16/2024 8:03 AM HUMAN CAPITAL MANAGER documented in this encounter Discharge Summaries * Jolynn Cole P.A.-CPrakash, M.S. - 01/19/2024 10:24 AM CST INPATIENT DISCHARGE SUMMARY BRIEF OVERVIEW Discharge Provider: Brokc Milton M.D. Primary Care Providers: Treasure Baires M.D. (General) [address] [phone] Primary Care Provider Primary Care Provider Admission [...] be used while taking this medication. Any kmth-rey-hlnjoct stool softener or laxative, such as Colace, [...] service may be contacted by calling the [facility] refinery operator at , asking to speak to [...] of Infectious Diseases OPAT monitoring program at [phone]. Should patient be enrolled in OPAT/COPAT program: [...] tablet (100 mcg total) by mouth daily. eowswaogptoh-yilj-WO 18-400 mg-mcg tablet Dose: 2 tablet oxyCODONE [...] after medications administration and as needed for tnt line supervisor. triamcinolone 0.1 % cream Dose: 1 Application [...] were provided to the patient and caregiver(s). N CAPITAL MANAGER documented in this encounter Discharge Instructions * Attachments The following attachments cannot be sent through Care Everywhere. * Ceftriaxone (By injection) (Malian) * Rifampin (By mouth) (Malian) * Oxycodone, Rapid Release (By mouth) (Malian) * Aspirin (By mouth) (Malian) * Sodium Chloride (By injection) (Malian) documented in this encounter Medications at Time [...] date: 03/18/2024 236 capsule 01/19/2024 2:24 PM HUMAN CAPITAL MANAGER 01/19/2024 03/18/19 25 sennosides-docu sate sodium (SENOKOT-S) 8.6-50 mg per tablet Take 1 tablet by mouth at bedtime as needed for constipation. 07/15/2023 sodium chloride 0.9 % injection Infuse 10 mL into a venous catheter as needed for line care. 10 mL before and after medications administration and as needed for tnt line supervisor. 10 mL 11 01/19/2024 triamcinolone (Kenalog) 0.1 [...] as able. 30 tablet 01/19/2024 2:24 PM HUMAN CAPITAL MANAGER 01/19/2024 01/25/20 documented as of this encounter Progress Notes * Xavier Duncan PRula., D.P.T. - 01/19/2024 10:20 AM CST Physical Therapy Inpatient Treatment Note SUBJECTIVE Patient's Name: Shreya Sanches Romero Douglas Referring/Attending: Brock Milton M.D. Medical Diagnosis: Aftercare Total Knee Arthroplasty [Z47.1, Z96.659] Pain Knee Left [M25.562] Reason for Referral: PT Evaluate and Treat PT - Ortho Onset Date: 01/16/24 Payor: [employer] / Plan: [employer] OPEN ACCESS / Product Type: PPO / [...] needs met and questions answered. Outcome Measures [facility] Inpatient Short Form: -[facility] Basic Mobility (V.2) How much help [...] 3-5 steps with a railing?: A Little AM-PAC Basic Mobility (V.2) Raw Score: 20 AM-PAC Basic Mobility (V.2) Standardized Score: 43.99 Interpretation: Clinicians answer the -[facility] Inpatient Short Form based on observed [...] Achieved PT Goal #2: Patient will demonstrate zqs-wq-zlmfg transfers with the least restrictive gait aid [...] Time (min): 33 min Xavier Duncan P.T., D.P.T. N CAPITAL MANAGER * Margareth Minor M.D. - 01/19/2024 8:00 [...] a child From 6am-6pm Tuesday-Tuesday, please contact [facility] at [phone] with any questions regarding this patient. If overnight [phone] or any time on weekends, please contact the Orthopedic Surgery house resident online banking specialist at [phone]. Margareth Minor MD PGY-3, Orthopedic Surgery [facility] Service N CAPITAL MANAGER * Xavier Duncan PRula., D.P.T. - 01/18/2024 11:29 AM CST Physical Therapy Inpatient Treatment Note SUBJECTIVE Patient's Name: Shreya Arriazaevin Douglas Referring/Attending: Brock Milton M.D. Medical Diagnosis: Aftercare Total Knee Arthroplasty [Z47.1, Z96.659] Pain Knee Left [M25.562] Reason for Referral: PT Evaluate and Treat PT - Ortho Onset Date: 01/16/24 Payor: [employer] / Plan: [employer] OPEN ACCESS / Product Type: PPO / [...] needs met and questions answered. Outcome Measures [facility] Inpatient Short Form: -[facility] Basic Mobility (V.2) How much help [...] 3-5 steps with a railing?: A Little AM-[facility] Basic Mobility (V.2) Raw Score: 20 AM-PAC Basic Mobility (V.2) Standardized Score: 43.99 Interpretation: Clinicians answer the AM-PAC Inpatient Short [...] Achieved PT Goal #2: Patient will demonstrate lhn-ll-ggkvq transfers with the least restrictive gait aid [...] Time (min): 18 min Xavier Duncan P.T., D.P.TPrakash N CAPITAL MANAGER * Margareth Minor M.D. - 01/18/2024 6:39 [...] pain med recs (level 1 IV fentaNYL GLASS ETCHER) - Urinary: No urinary catheter. - Disposition: [...] From 6am-6pm Tuesday-Tuesday, please contact [facility] at [phone] with any questions regarding this patient. If overnight [phone] or any time on weekends, please contact the Orthopedic Surgery house resident online banking specialist at [phone]. Margareth Minor MD PGY-3, Orthopedic Surgery O[facility]-1 Service N CAPITAL MANAGER N CAPITAL MANAGER * Silvana Marrufo M.D. - 01/18/2024 6:01 AM CST Infectious Diseases Orthopedic Surgery [facility] Consulting Service Progress Note SUBJECTIVE REASON [...] We will sign off. Please page Ortho [facility]-ID service pager at [phone] with any questions. Discussed with Infectious Diseases Senior Designer/Art Director, Dr. Corie Dempsey. Silvana Marrufo M.D. Orthopedic [...] of Infectious Diseases OPAT monitoring program at [phone]. Should patient be enrolled in OPAT/COPAT program: [...] Corie Dempsey M.D. at 01/18/2024 2:05 PM HUMAN CAPITAL MANAGER N CAPITAL MANAGER N CAPITAL MANAGER Associated attestation - Corie Dempsey M.D. - 01/18/2024 2:05 PM HUMAN CAPITAL MANAGER reviewed Dr. Marrufo's note. I agree with his findings and plan. We have recommended iv cefTRIAXone and oral rifAMPin on dc with orid follow up at 6 weeks to help transition to oral suppression therapy (cefadroxil). * Melissa Jauregui R.N. - 01/17/2024 11:06 AM CST Post Anesthesia Assessment Note Patient: Shreya Sanches Romero Igngaryev General Info Post-procedure day: 1 Follow-up type: [...] oral pain medications as needed for pain. N CAPITAL MANAGER * Gabriel Dimas, Solange.D., R.Ph., BCPS - [...] removed Opioid: Continue Level 1 IV fentaNYL GLASS ETCHER Promptly initiate oral opioids. Recommend oxyCODONE 5mg [...] Inpatient Pain Service. Gabriel Dimas Pharm.D., R.Ph., [facility] Pain Management Pharmacist Pager: [phone] Electronically signed by Gabriel Dimas Pharm.D., R.Ph., [facility] at 01/17/2024 11:18 AM HUMAN CAPITAL MANAGER * Shreya Dewey RPrakashN. - 01/17/2024 7:45 AM CST Post Anesthesia Assessment Note Patient: Shreya Douglas General Info Post-procedure day: 1 Follow-up type: inpatient regional Regional Block Information Description/location: lumbar epidural (L4-5 (11 )) Opioid/adjunct: hydromorphone 10 mcg/mL Rate (mL/hour): 10 Multi-modal Analgesics: Acetaminophen: yes Gabapentinoids: no NSAIDs: yes Opioids: yes (fentanyl GLASS ETCHER) Assessment: General assessment: uncomplicated postoperative course Side effects and complications: no complications Catheter taped at (cm at skin): 9 (out 2 cm from placement) Catheter assessment: clean, intact, non tender (per CLOTH FOLDER HAND) Signs/symptoms of local anesthetic toxicity: none Pain Assessment: Current static pain scale: 8/10 Anticoagulation Therapy aspirin Patient Care Plan: continue current management per plan/IPS protocol Overall Comments We will plan to remove epidural Tuesday[place] [phone] with questions or concerns. Medication plan listed above has been discussed with and reviewed by Pain ManagementPharmacist. Cosigned by Eva Srivastava APRN C.N.PPrakash, M.S.NPrakash at 01/17/2024 11:41 AM HUMAN CAPITAL MANAGER N CAPITAL MANAGER N CAPITAL MANAGER N CAPITAL MANAGER * Margareth Minor M.D. - 01/17/2024 4:26 [...] From 6am-6pm Tuesday-Tuesday, please contact [facility] at [phone] with any questions regarding this patient. If overnight [phone] or any time on weekends, please contact the Orthopedic Surgery house resident online banking specialist at [phone]. Margareth Minor MD PGY-3, Orthopedic Surgery [facility] Service N CAPITAL MANAGER N CAPITAL MANAGER * Hallie Vázquez M.S.N., R.N. - 01/16/2024 2:48 PM CST Post Anesthesia Assessment Note Patient: Shreya Douglas General Info Post-procedure day: 0 (day of procedure) Follow-up type: inpatient regional Regional Block Information Description/location: thoracic epidural (L4-5 (11 )) Opioid/adjunct: hydromorphone 10 mcg/mL Rate (mL/hour): 10 Assessment: General assessment: uncomplicated postoperative course Side effects and complications: no complications Catheter assessment: clean, intact, non tender (per CLOTH FOLDER HAND) Signs/symptoms of local anesthetic toxicity: none Site [...] tolerable[place] [phone] with questions or concerns. N CAPITAL MANAGER * Titus Ackerman, Pharm.D., R.Ph. - 01/16/2024 [...] tablet (100 mcg total) by mouth daily. fvnsfomvfspo-qplg-FS 18-400 mg-mcg tablet -- Self -- -- [...] irritation or rash. Apply to affected area. N CAPITAL MANAGER documented in this encounter Procedure Notes * Jarocho Sim R.N. - 01/19/2024 11:00 AM CSTAssociated Order(s): Perform central tnt line supervisor: Site care Perform central tnt line supervisor: Site care Performed by: Jarocho Sim R.N. Authorized by: Brock Milton M.D. PICC line placed 01/18/2024 @ 2029. Dressing remains dry, intact, and no concerns noted. PICC line flushes well with positive blood return. Site care not completed d/t recent line placement and full intactness of dressing. Patient in agreement and requesting change with next infusion therapy. N CAPITAL MANAGER * Can Crockett R.N. - 01/18/2024 8:30 [...] to release the adhesive from the skin. [email or web address] N CAPITAL MANAGER documented in this encounter Consult Notes * Katty Elizabeth M.S.W., JaydenSLuzmaria. - 01/18/2024 11:24 AM CSTAssociated Order(s): IP CONSULT TO ADDICTION; IP CONSULT TO CARE MANAGEMENT SUBJECTIVE Bowl Turner met with patient over the phone to provide a supportive visit, complete a psychosocial, and assist with discharge needs. Introduced self and reviewed role of inpatient Social Work, including legal responsibility as a mandated check airman. Patient expressed understanding of the purpose ofthis visit and was open to having a conversation. Reviewed Psychosocial assessment completed by Charisse Rowley L.G.S.W. MPrakashS.W on 07/06/2023. Patient indicates that this information remains accurate unless otherwise noted. Please refer to that document for further psychosocial details. [facility] from her [...] Patient declines concerns. Patient reports drinking alcohol. lawn care worker completed an audit C. Patient score low risk. Refer to chart for further information. Patient denies current concerns regarding mental health, suicidal ideation/intent, abuse/neglect or substance use. A list of infusion options (that they geographically reside or requested) has been verbally reviewed with patient. Disclaimers: Financial disclosure provided informing patient of our ownership and financial relationship of the [facility] beds, home health, and hospice agencies. Reviewed [employer] insurance coverage and provided in-network options. Patient shared a preference for [facility] infusions at home. Patient shared that she would prefer to dolab draws closer to home. lawn care worker shard that she will do some searching and get back to patient. Patient anticipates discharging home with Iv antibiotics once medically ready. Patient reports no further questions currently. Encouraged patient to contact Bowl Turner should additional needs arise. OBJECTIVE Patient was [...] Phone Fax Patient Preferred [facility] [address] [facility] [phone] -- Contact: Intake NURSING: - Adjust [...] draws will be managed by Outpatient Facility: [facility] Address: [address] [place] [address] [phone] Contact: Intake They will provide IV access care for this patient. NURSING: - Complete documentation in the Discharge Navigator including Nursing Report Info and Facility/NextLevel of Care Info - Call report and arrange for the patient???s first visit. Patient would prefer at [id number] am - Send After Visit Summary, include [...] continue to follow the patient. Chico Mendoza, Darci. 01/18/24 N CAPITAL MANAGER * Xavier Duncna PVianca, D.P.T. - 01/17/2024 12:23 PM CST Physical Therapy Inpatient Evaluation/Treatment SUBJECTIVE Patient's Name: Shreya Douglas Referring/Attending Provider: Brock Milton M.D. Medical Diagnosis: Aftercare Total Knee Arthroplasty [Z47.1, Z96.659] Pain Knee Left [M25.562] Reason for Referral: PT Evaluate and Treat PT - Ortho Onset Date: 01/16/24 Payor: [employer] / Plan: [employer] OPEN ACCESS / Product Type: PPO / [...] manual wheelchair. Adjustable bed Adaptive Equipment Owned: Investment Banking Manager Prior Level of Function and Mobility: Basic Activities of Daily Living: Independent Instrumental Activities of Daily Living: Overall independent. Spouse can assist with cooking, cleaning, laundry, and transportation. Functional Mobility: Independent prior to injury. Modified independent prior to this hospitalization with a walker or manual wheelchair. 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 [...] needs met and questions answered. Outcome Measures [facility] Inpatient Short Form: -[facility] Basic Mobility (V.2) How much help [...] Achieved PT Goal #2: Patient will demonstrate ouh-kc-jtdkv transfers with the least restrictive gait aid [...] Time (min): 38 min Xavier Duncan P.T., D.P.T. N CAPITAL MANAGER * Maura Kee O.T., O.TNancy - 01/17/2024 8:52 AM CST Occupational Therapy Acute Hospital Inpatient Evaluation/Treatment By co-signing this note, the [...] KNEE (Left, 01/16/2024). History of Present Illness: hSreya Douglas is a 73 y.o. female who was admitted to [facility] in [place] on 01/16/2024 for Aftercare Total Knee Arthroplasty [...] manual wheelchair. Adjustable bed Adaptive Equipment Owned: Investment Banking Manager Prior Level of Function and Mobility: Basic Activities of Daily Living: Independent Instrumental Activities of Daily Living: Overall independent. Spouse can assist with cooking, cleaning, laundry, and transportation. Functional Mobility: Independent prior to injury. Modified independent prior to this hospitalization with a walker or manual wheelchair. 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 Inpatient Short Form: Putting on and taking [...] at or below 17 Clinicians answer the [facility] Inpatient Short Form based on [...] min Total Treatment Time (min): 26 min ([phone]) Maura Kee O.T., O.TNancy Cosigned by Brock Milton M.D. at 01/19/2024 6:54 AM HUMAN CAPITAL MANAGER N CAPITAL MANAGER N CAPITAL MANAGER * Addison Thurman M.S., RDN, LD - [...] Mass: Normal Estimated Needs: Total Calorie Needs: 4754-4474 calories/day Method to Estimate Energy Needs: kcal/kg [...] about patient's nutritional care please contact pager [phone] on weekdays 07:30-16:00 or [phone] on weekends/holidays ([facility]). N CAPITAL MANAGER * Silvana Marrufo M.D. - 01/17/2024 6:29 AM CSTAssociated Order(s): IP CONSULT TO INFECTIOUS DISEASES Infectious Diseases Orthopedic Surgery [facility] Consulting Service Consult Note SUBJECTIVE REASON [...] will follow along closely. Please page the [facility]-ID service pager at [phone] with questions. Thank you for the consultation. Discussed with Infectious Diseases Senior Designer/Art Director, Dr. Corie Dempsey. Silvana Marrufo M.D. Orthopedic Infectious Diseases Fellow Cosigned by Corie Dempsey M.D. at 01/17/2024 3:05 PM HUMAN CAPITAL MANAGER N CAPITAL MANAGER N CAPITAL MANAGER N CAPITAL MANAGER N CAPITAL MANAGER Associated attestation - Corie Dempsey M.D. - 01/17/2024 3:05 PM HUMAN CAPITAL MANAGER I saw and evaluated the patient, participating [...] with out pt PICC site care/labs. [facility] page makeup system operator provided pt with teaching and extension line at bedside. This RN called [facility] to set up labs and PICC [...] exit with pharm stop by dc transport. N CAPITAL MANAGER * Nataliia Ogden R.N. - 01/19/2024 5:46 [...] OF CARE: Continue current plan of care N CAPITAL MANAGER documented in this encounter OR Notes * Op Note - Brock Milton M.D. - 01/16/2024 11:28 AM CST Pre-op Diagnosis Aftercare Total Knee Arthroplasty Post-op Diagnosis Aftercare Total Knee Arthroplasty Crossbar Switch Adjuster A first aid officer actively participated and was necessary for one [...] much as she desires. Brock Milton M.D. N CAPITAL MANAGER N CAPITAL MANAGER documented in this encounter Miscellaneous Notes * Hospital Course - Jolynn Cole P.A.-C., M.S. - 01/19/2024 10:26 AM HUMAN CAPITAL MANAGER # Open lysis of adhesions left knee [...] Mass Index 30-39.9 Adult # Regurgitation Mitral N CAPITAL MANAGER documented in this encounter Plan of Treatment Upcoming Encounters Date Type Department Care Team (Late st Contact Info) Description 03/01/2024 10:00 AM HUMAN CAPITAL MANAGER Comprehensive Visit Section of Infectious Diseases in [place], [place] [address] [place] [phone] Silvana Marrufo M.D. [address] [place] [phone] 03/01/2024 10:40 AM HUMAN CAPITAL MANAGER Lab Department of Laboratory Medicine and Pathology, [facility], in [place], [place] [address] [place] [phone] Jolynn Cole P.A.-C., M.S. [address] [place] [phone] 03/01/2024 11:15 AM HUMAN CAPITAL MANAGER Appointment Department of Radiology, [facility] in [place], [place] [address] [place] [phone] Jolynn Cole P.A.-C., M.S. [address] [place] [phone] 03/01/2024 12:00 PM HUMAN CAPITAL MANAGER Office Visit Department of Orthopedic Surgery in [place], [place] [address] [place] [phone] Jolynn Cole P.A.-C., M.S. [address] [place] [phone] 03/13/2024 3:20 PM HUMAN CAPITAL MANAGER Comprehensive Visit Department of Family Medicine, [facility], in [place], [place] [address] [place] [phone] Treasure Baires M.D. [address] [place] [phone] 03/14/2024 1:30 PM HUMAN CAPITAL MANAGER Virtual Visit Section of Infectious Diseases in [place], [place] [address] [place] [phone] Silvana Marrufo M.D. [address] [place] [phone] Pending Results Name Type Priority Associated Diagnoses Date /Time Fungal Culture, Routine Microbiology Routine Aftercare Total Knee Arthroplasty 01/16/2024 11:40 AM HUMAN CAPITAL MANAGER Fungal Culture, Routine Microbiology Routine Aftercare Total Knee Arthroplasty 01/16/2024 11:40 AM HUMAN CAPITAL MANAGER Fungal Culture, Routine Microbiology Routine Aftercare Total Knee Arthroplasty 01/16/2024 11:40 AM HUMAN CAPITAL MANAGER Mycobacterial Culture Microbiology Routine Aftercare Total Knee Arthroplasty 01/16/2024 11:40 AM HUMAN CAPITAL MANAGER Mycobacterial Culture Microbiology Routine Aftercare Total Knee Arthroplasty 01/16/2024 11:40 AM HUMAN CAPITAL MANAGER Mycobacterial Culture Microbiology Routine Aftercare Total Knee Arthroplasty 01/16/2024 11:40 AM HUMAN CAPITAL MANAGER documented as of this encounter Procedures Procedure Name Priority Date/Time Associated Diagnosis Comments ALKALINE PHOSPHATASE, S/P Routine 01/19/2024 12:54 PM HUMAN CAPITAL MANAGER Aftercare Total Knee Arthroplasty Infection Total Knee Arthroplasty Initial Left (HCC) PERFORM CENTRAL BUFFER NICKEL Routine 01/19/2024 11:[address] PERIPHERALLY INSERTED CENTRAL CATHETER (PICC) Routine 01/18/2024 8:30 PM HUMAN CAPITAL MANAGER HEPATIC FUNCTION PANEL, S Timed 01/18/2024 6:55 AM HUMAN CAPITAL MANAGER SEDIMENTATION RATE, B Timed 01/18/2024 6:55 AM HUMAN CAPITAL MANAGER C-REACTIVE PROTEIN (CRP), S/P Timed 01/18/2024 6:55 AM HUMAN CAPITAL MANAGER HEPATIC FUNCTION PANEL, S Routine 01/18/2024 5:56 AM HUMAN CAPITAL MANAGER SEDIMENTATION RATE, B Routine 01/18/2024 5:56 AM HUMAN CAPITAL MANAGER C-REACTIVE PROTEIN (CRP), S/P Routine 01/18/2024 5:56 AM HUMAN CAPITAL MANAGER ADULT OXYGEN THERAPY Routine 01/17/2024 8:01 PM HUMAN CAPITAL MANAGER ADULT OXYGEN THERAPY Routine 01/17/2024 8:01 PM HUMAN CAPITAL MANAGER ADULT OXYGEN THERAPY Routine 01/17/2024 8:01 PM HUMAN CAPITAL MANAGER ADULT OXYGEN THERAPY Routine 01/17/2024 11:32 AM HUMAN CAPITAL MANAGER ADULT OXYGEN THERAPY Routine 01/17/2024 11:32 AM HUMAN CAPITAL MANAGER ADULT OXYGEN THERAPY Routine 01/17/2024 11:32 AM HUMAN CAPITAL MANAGER ADULT OXYGEN THERAPY Routine 01/17/2024 11:32 AM HUMAN CAPITAL MANAGER ADULT OXYGEN THERAPY Routine 01/17/2024 8:02 AM HUMAN CAPITAL MANAGER CBC WITHOUT DIFFERENTIAL, B Routine 01/17/2024 5:09 AM HUMAN CAPITAL MANAGER BASIC METABOLIC PANEL, S/P Routine 01/17/2024 5:09 AM HUMAN CAPITAL MANAGER ADULT OXYGEN THERAPY Routine 01/16/2024 8:01 PM HUMAN CAPITAL MANAGER ADULT OXYGEN THERAPY Routine 01/16/2024 1:19 PM HUMAN CAPITAL MANAGER ADULT OXYGEN THERAPY Routine 01/16/2024 1:19 PM HUMAN CAPITAL MANAGER ADULT OXYGEN THERAPY Routine 01/16/2024 1:19 PM HUMAN CAPITAL MANAGER ADULT OXYGEN THERAPY Routine 01/16/2024 1:18 PM HUMAN CAPITAL MANAGER DX KNEE LEFT 2 VIEWS RAD - Routine (most inpatients and all outpatients) 01/16/2024 1:15 PM HUMAN CAPITAL MANAGER BACTERIA CULT, AEROBE/ANAEROBE+SUSC Routine 01/16/2024 11:40 AM HUMAN CAPITAL MANAGER BACTERIA CULT, AEROBE/ANAEROBE+SUSC Routine 01/16/2024 11:40 AM HUMAN CAPITAL MANAGER BACTERIA CULT, AEROBE/ANAEROBE+SUSC Routine 01/16/2024 11:40 AM HUMAN CAPITAL MANAGER MYCOBACTERIAL CULTURE, V Routine 01/16/2024 11:40 AM HUMAN CAPITAL MANAGER Aftercare Total Knee Arthroplasty MYCOBACTERIAL CULTURE, V Routine 01/16/2024 11:40 AM HUMAN CAPITAL MANAGER Aftercare Total Knee Arthroplasty MYCOBACTERIAL CULTURE, V Routine 01/16/2024 11:40 AM HUMAN CAPITAL MANAGER Aftercare Total Knee Arthroplasty FUNGAL SMEAR Routine 01/16/2024 11:40 AM HUMAN CAPITAL MANAGER Aftercare Total Knee Arthroplasty FUNGAL SMEAR Routine 01/16/2024 11:40 AM HUMAN CAPITAL MANAGER Aftercare Total Knee Arthroplasty FUNGAL SMEAR Routine 01/16/2024 11:40 AM HUMAN CAPITAL MANAGER Aftercare Total Knee Arthroplasty ACID FAST SMEAR FOR MYCOBACTERIUM Routine 01/16/2024 11:40 AM HUMAN CAPITAL MANAGER Aftercare Total Knee Arthroplasty ACID FAST SMEAR FOR MYCOBACTERIUM Routine 01/16/2024 11:40 AM HUMAN CAPITAL MANAGER Aftercare Total Knee Arthroplasty ACID FAST SMEAR FOR MYCOBACTERIUM Routine 01/16/2024 11:40 AM HUMAN CAPITAL MANAGER Aftercare Total Knee Arthroplasty GRAM STAIN Routine 01/16/2024 11:40 AM HUMAN CAPITAL MANAGER Aftercare Total Knee Arthroplasty GRAM STAIN Routine 01/16/2024 11:40 AM HUMAN CAPITAL MANAGER Aftercare Total Knee Arthroplasty GRAM STAIN Routine 01/16/2024 11:40 AM HUMAN CAPITAL MANAGER Aftercare Total Knee Arthroplasty FUNGAL CULTURE, ROUTINE Routine 01/16/2024 11:40 AM HUMAN CAPITAL MANAGER Aftercare Total Knee Arthroplasty FUNGAL CULTURE, ROUTINE Routine 01/16/2024 11:40 AM HUMAN CAPITAL MANAGER Aftercare Total Knee Arthroplasty FUNGAL CULTURE, ROUTINE Routine 01/16/2024 11:40 AM HUMAN CAPITAL MANAGER Aftercare Total Knee Arthroplasty ARTHROPLASTY REPLACEMENT TOTAL KNEE 01/16/2024 10:21 AM HUMAN CAPITAL MANAGER Aftercare Total Knee Arthroplasty Case Notes Crop Production Advisor @ [phone] Special Needs Supine, hip rest, 3 tissue cultures, size 4 tibial polys available for Rickreall revision system (unknown current poly size), pulsavac. documented in this encounter Results * (ABNORMAL) Alkaline Phosphatase (01/19/2024 12:54 PM HUMAN CAPITAL MANAGER) Alkaline Phosphatase, S 155(H) 35 - 104 U/L 01/19/2024 3:29 PM HUMAN CAPITAL MANAGER DTL Blood (Blood, Venous) 01/19/2024 12:54 PM HUMAN CAPITAL MANAGER 01/19/2024 1:39 PM HUMAN CAPITAL MANAGER Jolynn Cole P.A.-C., M.S. LAB BLOOD ADD-ON Final Result [facility] [address] [place] [address], [facility] DTL [facility] [address] [place] [address] * Perform central tnt line supervisor: Site care (01/19/2024 11:00 AM HUMAN CAPITAL MANAGER) Narrative Jarocho Sim R.N. - 01/19/2024 11:00 AM HUMAN CAPITAL MANAGER Jarocho Sim R.N. 01/19/2024 11:02 AM Perform central tnt line supervisor: Site care Performed by: Jarocho Sim R.N. Authorized by: Brock Milton M.D. Brock Milton M.D. PROCEDURE/MINOR SURGICAL ORD ERABLES Final Result * Place peripherally inserted central catheter (PICC) (01/18/2024 8:30 PM HUMAN CAPITAL MANAGER) Narrative MMODAL - 01/18/2024 8:30 PM HUMAN CAPITAL MANAGER Can Crockett R.N. 01/18/2024 10:[address] [...] to release the adhesive from the skin. [email or web address] Kashif Dailey M.D. PROCEDURE/MINOR SURGICAL ORDERABLES Final Result MMODAL NA * (ABNORMAL) Hepatic Function Panel (01/18/2024 6:55 AM HUMAN CAPITAL MANAGER) Bilirubin, Total, S 0.4 0.0 - 1.2 mg/dL 01/18/2024 8:12 AM HUMAN CAPITAL MANAGER DTL Bilirubin, Direct, S <0.2 0.0 - 0.3 mg/dL 01/18/2024 8:12 AM HUMAN CAPITAL MANAGER DTL Aspartate Aminotransferase (AST), S 32 8 - 43 U/L 01/18/2024 8:12 AM HUMAN CAPITAL MANAGER DTL Alanine Aminotransferase (ALT), S 14 7 - 45 U/L 01/18/2024 8:12 AM HUMAN CAPITAL MANAGER DTL Alkaline Phosphatase, S 122(H) 35 - 104 U/L 01/18/2024 8:12 AM HUMAN CAPITAL MANAGER DTL Albumin, S 3.6 3.5 - 5.0 g/dL 01/18/2024 8:12 AM HUMAN CAPITAL MANAGER DTL Protein, Total, S 6.1(L) 6.3 - 7.9 g/dL 01/18/2024 8:12 AM HUMAN CAPITAL MANAGER DTL Blood (Blood, Venous) 01/18/2024 6:55 AM HUMAN CAPITAL MANAGER 01/18/2024 7:48 AM HUMAN CAPITAL MANAGER us Margareth Minor M.D. LAB BLOOD ADD-ON Final Re sult Performing Organization Address City/[facility]/ZIP Co de Phone Number [facility] [address] [place] [address], [facility] [address] [place] [address] * (ABNORMAL) Sedimentation Rate (01/18/2024 6:55 AM HUMAN CAPITAL MANAGER) Sedimentation Rate, B 55(H) 3 - 28 mm/h 01/18/2024 8:26 AM HUMAN CAPITAL MANAGER DTL Blood (Blood, Venous) 01/18/2024 6:55 AM HUMAN CAPITAL MANAGER 01/18/2024 7:27 AM HUMAN CAPITAL MANAGER Result Usama Minor M.D. LAB BLOOD ADD-ON Final Re sult Performing Organization Address City/[facility]/ZIP Co de Phone Number [facility] [address] [place] [address], [facility] [address] [place] [address] * (ABNORMAL) CRP (C-Reactive Protein) (01/18/2024 6:55 AM HUMAN CAPITAL MANAGER) C-Reactive Protein (CRP), S 125.4(H) <5.0 mg/L 01/18/2024 8:12 AM HUMAN CAPITAL MANAGER DTL Blood (Blood, Venous) 01/18/2024 6:55 AM HUMAN CAPITAL MANAGER 01/18/2024 7:48 AM HUMAN CAPITAL MANAGER Result Usama Minor M.D. LAB BLOOD ADD-ON Final Re sult Performing Organization Address [facility] Co de Phone Number [facility] [address] [place] [address], [facility] [address] [place] [address] * (ABNORMAL) Hepatic Function Panel (01/18/2024 5:56 AM HUMAN CAPITAL MANAGER) Bilirubin, Total, S 0.3 0.0 - 1.2 mg/dL 01/18/2024 7:49 AM HUMAN CAPITAL MANAGER DTL Bilirubin, Direct, S <0.2 0.0 - 0.3 mg/dL 01/18/2024 7:49 AM HUMAN CAPITAL MANAGER DTL Aspartate Aminotransferase (AST), S 39 8 - 43 U/L 01/18/2024 7:49 AM HUMAN CAPITAL MANAGER DTL Alanine Aminotransferase (ALT), S 12 7 - 45 U/L 01/18/2024 7:49 AM HUMAN CAPITAL MANAGER DTL Alkaline Phosphatase, S 123(H) 35 - 104 U/L 01/18/2024 7:49 AM HUMAN CAPITAL MANAGER DTL Albumin, S 3.7 3.5 - 5.0 g/dL 01/18/2024 7:49 AM HUMAN CAPITAL MANAGER DTL Protein, Total, S 6.1(L) 6.3 - 7.9 g/dL 01/18/2024 7:49 AM HUMAN CAPITAL MANAGER DTL Blood (Blood, Venous) 01/18/2024 5:56 AM HUMAN CAPITAL MANAGER 01/18/2024 6:34 AM HUMAN CAPITAL MANAGER Silvana Marrufo M.D. LAB BLOOD ADD-ON Final Resu lt Performing Organization Address City/[facility]/ZIP Co de Phone Number [facility] [address] [place] [address], [facility] DTL [facility] [address] [place] [address] * (ABNORMAL) Sedimentation Rate (01/18/2024 5:56 AM HUMAN CAPITAL MANAGER) Sedimentation Rate, B 59(H) 3 - 28 mm/h 01/18/2024 7:19 AM HUMAN CAPITAL MANAGER DTL Blood (Blood, Venous) 01/18/2024 5:56 AM HUMAN CAPITAL MANAGER 01/18/2024 6:19 AM HUMAN CAPITAL MANAGER us Silvana Marrufo M.D. LAB BLOOD ADD-ON Final Resu lt Performing Organization Address [facility]/ZIP Co de Phone Number [facility] [address] [place], [place] [address] [place] [address] * (ABNORMAL) CRP (C-Reactive Protein) (01/18/2024 5:56 AM HUMAN CAPITAL MANAGER) [facility] C-Reactive Protein (CRP), S 119.7(H) <5.0 mg/L 01/18/2024 7:49 AM HUMAN CAPITAL MANAGER DTL Blood (Blood, Venous) 01/18/2024 5:56 AM HUMAN CAPITAL MANAGER 01/18/2024 6:34 AM HUMAN CAPITAL MANAGER us Silvana Marrufo M.D. LAB BLOOD ADD-ON Final Resu lt Performing Organization Address [facility] Co de Phone Number [facility] [address] [place] [address], [address] [address] * (ABNORMAL) CBC without Differential (01/17/2024 5:09 AM HUMAN CAPITAL MANAGER) [facility] Hemoglobin 9.5(L) 11.6 - 15.0 g/dL 01/17/2024 6:26 AM HUMAN CAPITAL MANAGER DTL Hematocrit 30.6(L) 35.5 - 44.9 % 01/17/2024 6:26 AM HUMAN CAPITAL MANAGER DTL Erythrocytes 3.42(L) 3.92 - 5.13 x10(12)/L 01/17/2024 6:26 AM HUMAN CAPITAL MANAGER DTL MCV 89.5 78.2 - 97.9 fL 01/17/2024 6:26 AM HUMAN CAPITAL MANAGER DTL RBC Distrib Width 14.8 12.2 - 16.1 % 01/17/2024 6:26 AM HUMAN CAPITAL MANAGER DTL Platelet Count 250 157 - 371 x10(9)/L 01/17/2024 6:26 AM HUMAN CAPITAL MANAGER DTL Leukocytes 7.9 3.4 - 9.6 x10(9)/L 01/17/2024 6:26 AM HUMAN CAPITAL MANAGER DTL Blood (Blood, Venous) 01/17/2024 5:09 AM HUMAN CAPITAL MANAGER 01/17/2024 6:19 AM HUMAN CAPITAL MANAGER Jolynn Cole P.A.-C., M.S. LAB BLOOD ADD-ON Final Result [facility] [address] [place] [address], [facility] DTL [facility] [address] [place] [address] * (ABNORMAL) Basic Metabolic Panel (01/17/2024 5:09 AM HUMAN CAPITAL MANAGER) Potassium, S 3.9 3.6 - 5.2 mmol/L 01/17/2024 6:50 AM HUMAN CAPITAL MANAGER DTL Sodium, S 140 135 - 145 mmol/L 01/17/2024 6:50 AM HUMAN CAPITAL MANAGER DTL Chloride, S 103 98 - 107 mmol/L 01/17/2024 6:50 AM HUMAN CAPITAL MANAGER DTL Bicarbonate, S 26 22 - 29 mmol/L 01/17/2024 6:50 AM HUMAN CAPITAL MANAGER DTL Anion Gap 11 7 - 15 01/17/2024 6:50 AM HUMAN CAPITAL MANAGER DTL BUN (Blood Urea Nitrogen), S 14 6 - 21 mg/dL 01/17/2024 6:50 AM HUMAN CAPITAL MANAGER DTL Creatinine 0.71 0.59 - 1.04 mg/dL 01/17/2024 6:50 AM HUMAN CAPITAL MANAGER DTL Estimated GFR (eGFR) 90 >=60 mL/min/BSA 01/17/2024 6:50 AM HUMAN CAPITAL MANAGER DTL Comment: Estimated GFR calculated using the 2020 CKD_EPI creatinine equation. Calcium, Total, S 8.4(L) 8.8 - 10.2 mg/dL 01/17/2024 6:50 AM HUMAN CAPITAL MANAGER DTL Glucose, S 145(H) 70 - 140 mg/dL 01/17/2024 6:50 AM HUMAN CAPITAL MANAGER DTL Blood (Blood, Venous) 01/17/2024 5:09 AM HUMAN CAPITAL MANAGER 01/17/2024 6:31 AM HUMAN CAPITAL MANAGER Jolynn Cole P.A.-C., MPrakashS. LAB BLOOD ADD-ON Final Result [facility] [address] [place] [address], [place] DTL [facility] [address] [place] [address] * DX Knee Left 2 Views (01/16/2024 1:15 PM HUMAN CAPITAL MANAGER) Anatomical Region Laterality Modality Lower Extremity, Knee, Muscu loskeletal RST LOS, Musculoskeletal ARZ LOS, Muskuloskeletal FLA LOS Left Digit al Radiography Impressions 01/16/2024 1:41 PM HUMAN CAPITAL MANAGER Postsurgical changes of left TKA with patellar resurfacing and longstem tibial component. No evidence of hardware failure. Healing fracture of the proximal tibia and fibula. Otherwise negative for postoperative purposes. Narrative 01/16/2024 1:41 PM HUMAN CAPITAL MANAGER EXAM: DX KNEE LEFT 2 VIEWS Procedure [...] / Anaerobe + Susc (01/16/2024 11:40 AM HUMAN CAPITAL MANAGER) Bacteria Cult, Aerobe/Anaerobe+S usc STAPHYLOCOCCUS AUREUS Growth after 1 day (A) 01/20/2024 1:53 PM HUMAN CAPITAL MANAGER DTL Comment: mecA not detected Methicillin (oxacillin)-susceptible Staphylococcus aureus. Knee, Left 01/16/2024 11:4 0 AM HUMAN CAPITAL MANAGER 01/16/2024 3:19 PM HUMAN CAPITAL MANAGER Comment:Specimen Source Site : Tissue #2 Narrative [facility] - 01/20/2024 1:53 PM HUMAN CAPITAL MANAGER Bacterial Culture: Placed in Bactec aerobic and [...] MICROBIOLOGY - GENERAL O RDERABLES Final Result [facility] [address] [place] [address], [place] [facility] [address] [place] [address] * (ABNORMAL) Bacteria Culture, Aerobe / Anaerobe + Susc (01/16/2024 11:40 AM HUMAN CAPITAL MANAGER) Bacteria Cult, Aerobe/Anaer obe+Susc STAPHYLOCOCCUS AUREUS Growth after 1 day (A) 01/20/2024 10:59 AM HUMAN CAPITAL MANAGER DTL Comment: Semi-Urgent Result. Susceptibilities performed on another specimen [id number] Semi-Urgent This is a semi-urgent result(CASTILLO) [facility] Knee, Left 01/16/2024 11:4 0 AM HUMAN CAPITAL MANAGER 01/16/2024 2:30 PM HUMAN CAPITAL MANAGER Comment:Specimen Source Site : Tissue #1 Narrative [facility] - 01/20/2024 10:59 AM HUMAN CAPITAL MANAGER Bacterial Culture: Placed in Bactec aerobic and Bactec anaerobic bottles Brock Milton M.D. LAB MICROBIOLOGY - GENERAL O RDERABLES Final Result Performing Organization Address City/[facility] Co de Phone Number [facility] [address] [place] [address], [facility] [address] [place] [address] * (ABNORMAL) Bacteria Culture, Aerobe / Anaerobe + Susc (01/16/2024 11:40 AM HUMAN CAPITAL MANAGER) Bacteria Cult, Aerobe/Anaero be+Susc STAPHYLOCOCCUS AUREUS Growth after 1 day (A) 01/20/2024 10:59 AM HUMAN CAPITAL MANAGER DTL Comment:Susceptibilities per formed on another specimen [id number] Knee, Left 01/16/2024 11:4 0 AM HUMAN CAPITAL MANAGER 01/16/2024 2:26 PM HUMAN CAPITAL MANAGER Comment:Specimen Source Site : Tissue #3 Narrative [facility] - 01/20/2024 10:59 AM HUMAN CAPITAL MANAGER Bacterial Culture: Placed in Bactec aerobic and Bactec anaerobic bottles us Brock Milton M.D. LAB MICROBIOLOGY - GENERAL O RDERABLES Final Result Performing Organization Address City/[facility]/ZIP Co de Phone Number [facility] [address] [place] [address], [facility] DTL [facility] [address] [place] [address] * Fungal Smear (01/16/2024 11:40 AM HUMAN CAPITAL MANAGER) Fungal Smear Negative. 01/16/2024 9:04 PM HUMAN CAPITAL MANAGER DTL Tissue (Knee, Left) 01/16/2024 11:40 AM HUMAN CAPITAL MANAGER Narrative [facility] - 01/16/2024 9:04 PM HUMAN CAPITAL MANAGER Bacterial Culture: Placed in Bactec aerobic and Bactec anaerobic bottles Brock Milton M.D. LAB MICROBIOLOGY - GENERAL O RDERABLES Final Result Performing Organization Address City/[facility]/ZIP Co de Phone Number [facility] [address] [place] [address], [facility] [address] [place] [address] * Fungal Smear (01/16/2024 11:40 AM HUMAN CAPITAL MANAGER) Fungal Smear Negative. 01/16/2024 9:04 PM HUMAN CAPITAL MANAGER DTL Tissue (Knee, Left) 01/16/2024 11:40 AM HUMAN CAPITAL MANAGER Narrative [facility] - 01/16/2024 9:04 PM HUMAN CAPITAL MANAGER Bacterial Culture: Placed in Bactec aerobic and Bactec anaerobic bottles us Brock Milton M.D. LAB MICROBIOLOGY - GENERAL O RDERABLES Final Result Performing Organization Address City/[facility] Co de Phone Number [facility] [address] [place] [address], [facility] [address] [place] [address] * Fungal Smear (01/16/2024 11:40 AM HUMAN CAPITAL MANAGER) Fungal Smear Negative. 01/16/2024 9:04 PM HUMAN CAPITAL MANAGER DTL Tissue (Knee, Left) 01/16/2024 11:40 AM HUMAN CAPITAL MANAGER Narrative [facility] - 01/16/2024 9:04 PM HUMAN CAPITAL MANAGER Bacterial Culture: Placed in Bactec aerobic and Bactec anaerobic bottles us Brock Milton M.D. LAB MICROBIOLOGY - GENERAL O RDERABLES Final Result [facility] [address] [place] [address], [facility] [address] [place] [address] * Acid Fast Smear for Mycobacterium (01/16/2024 11:40 AM HUMAN CAPITAL MANAGER) Acid Fast Smear For Mycobacterium Negative. 01/16/2024 10:10 PM HUMAN CAPITAL MANAGER DTL Tissue (Knee, Left) 01/16/2024 11:40 AM HUMAN CAPITAL MANAGER Narrative [facility] - 01/16/2024 10:10 PM HUMAN CAPITAL MANAGER Bacterial Culture: Placed in Bactec aerobic and Bactec anaerobic bottles Brock Milton M.D. LAB MICROBIOLOGY - GENERAL O RDERABLES Final Result [facility] [address] [place] [address], [facility] [address] [place] [address] * Acid Fast Smear for Mycobacterium (01/16/2024 11:40 AM HUMAN CAPITAL MANAGER) Acid Fast Smear For Mycobacterium Negative. 01/16/2024 10:48 PM HUMAN CAPITAL MANAGER DTL Tissue (Knee, Left) 01/16/2024 11:40 AM HUMAN CAPITAL MANAGER [facility] - 01/16/2024 10:48 PM HUMAN CAPITAL MANAGER Bacterial Culture: Placed in Bactec aerobic and Bactec anaerobic bottles us Brock Milton M.D. LAB MICROBIOLOGY - GENERAL O RDERABLES Final Result [facility] [address] [place] [address], [facility] [address] [place] [address] * Acid Fast Smear for Mycobacterium (01/16/2024 11:40 AM HUMAN CAPITAL MANAGER) Acid Fast Smear For Mycobacterium Negative. 01/16/2024 10:10 PM HUMAN CAPITAL MANAGER DTL Tissue (Knee, Left) 01/16/2024 11:40 AM HUMAN CAPITAL MANAGER Narrative [facility] - 01/16/2024 10:10 PM HUMAN CAPITAL MANAGER Bacterial Culture: Placed in Bactec aerobic and Bactec anaerobic bottles Brock Milton M.D. LAB MICROBIOLOGY - GENERAL O RDERABLES Final Result Performing Organization Address [facility] Co de Phone Number [facility] [address] [place] [address], [facility] DTL [facility] [address] [place] [address] * (ABNORMAL) Gram Stain (01/16/2024 11:40 AM HUMAN CAPITAL MANAGER) Gram Stain White blood cells, Many(A) 01/16/2024 6:50 PM HUMAN CAPITAL MANAGER DTL Gram Stain GRAM POSITIVE COCCI Rare (A) 01/16/2024 6:50 PM HUMAN CAPITAL MANAGER DTL Comment:Semi-Urgent Result. Semi-Urgent This is a semi-urgent result(CASTILLO) [facility] Tissue (Knee, Left) 01/16/2024 11:40 AM HUMAN CAPITAL MANAGER Narrative [facility] - 01/16/2024 6:50 PM HUMAN CAPITAL MANAGER Bacterial Culture: Placed in Bactec aerobic and Bactec anaerobic bottles Brock Milton M.D. LAB MICROBIOLOGY - GENERAL O RDERABLES Final Result Performing Organization Address [facility] de Phone Number [facility] [address] [place] [address], [facility] DTL [facility] [address] [place] [address] * (ABNORMAL) Gram Stain (01/16/2024 11:40 AM HUMAN CAPITAL MANAGER) Gram Stain White blood cells, Many(A) 01/16/2024 6:50 PM HUMAN CAPITAL MANAGER DTL Gram Stain GRAM POSITIVE COCCI Rare (A) 01/16/2024 6:50 PM HUMAN CAPITAL MANAGER DTL Tissue (Knee, Left) 01/16/2024 11:40 AM HUMAN CAPITAL MANAGER Narrative [facility] - 01/16/2024 6:50 PM HUMAN CAPITAL MANAGER Bacterial Culture: Placed in Bactec aerobic and Bactec anaerobic bottles us Brock Milton M.D. LAB MICROBIOLOGY - GENERAL O RDERABLES Final Result Performing Organization Address [facility] Co de Phone Number [facility] [address] [place] [address], [facility] [address] [place] [address] * (ABNORMAL) Gram Stain (01/16/2024 11:40 AM HUMAN CAPITAL MANAGER) Gram Stain White blood cells, Many(A) 01/16/2024 6:50 PM HUMAN CAPITAL MANAGER DTL Gram Stain GRAM POSITIVE COCCI Rare (A) 01/16/2024 6:50 PM HUMAN CAPITAL MANAGER DTL Tissue (Knee, Left) 01/16/2024 11:40 AM HUMAN CAPITAL MANAGER Narrative [facility] - 01/16/2024 6:50 PM HUMAN CAPITAL MANAGER Bacterial Culture: Placed in Bactec aerobic and Bactec anaerobic bottles Brock Milton M.D. LAB MICROBIOLOGY - GENERAL O RDERABLES Final Result Performing Organization Address [facility] Co de Phone Number [facility] [address] [place] [address], [facility] [address] [place] [address] documented in this encounter Visit Diagnoses Diagnosis Aftercare Total Knee Arthroplasty- Primary Aftercare Total Knee Arthroplasty Decline Functional Status [R53.81] Infection Total Knee Arthroplasty Initial Left (HCC) Aftercare Total Knee Arthroplasty documented in this encounter Admitting Diagnoses Diagnosis Aftercare Total Knee Arthroplasty Pain Knee Left documented in this encounter Administered Medications Inactive Administered Medications - up to 3 most recent administrations Medication Order MAR Action Action Date Dose Rate Site acetaminophen tablet 1,000 mg (TylenoL) 1,000 mg, oral, Every 6 hours, First dose (after last modification) on Tue01/17/24 at 0815 Given 01/19/2024 8:14 AM HUMAN CAPITAL MANAGER 1,000 mg Given 01/19/2024 2:41 AM HUMAN CAPITAL MANAGER 1,000 mg Given 01/18/2024 7:47 PM HUMAN CAPITAL MANAGER 1,[address] tablet 81 mg 81 mg, oral, 2 times daily, First dose (after last modification) on Tue01/17/24 at 0900, Swallow whole. Do NOT crush, chew, or split tablet. Given 01/19/2024 8:14 AM HUMAN CAPITAL MANAGER 81 mg Given 01/18/2024 8:45 PM HUMAN CAPITAL MANAGER 81 mg Given 01/18/2024 9:31 AM HUMAN CAPITAL MANAGER 81 mg atorvastatin tablet 20 mg (Lipitor) 20 mg, oral, Daily at bedtime, First dose on Tue01/16/24 at 2100, atorvastatin 20 mg oral daily was interchanged for pravastatin oral daily Given 01/18/2024 8:45 PM HUMAN CAPITAL MANAGER 20 mg Given 01/17/2024 9:15 PM HUMAN CAPITAL MANAGER 20 mg Given 01/16/2024 8:46 PM HUMAN CAPITAL MANAGER 20 mg bisacodyL suppository 10 mg (Dulcolax) 10 mg, rectal, Daily PRN, constipation, Starting on Tue01/16/24 at 1517, Ordered sequence of administration: polyethylene glycol, then bisacodyl until BM achieved. Given 01/18/2024 10:36 AM HUMAN CAPITAL MANAGER 1 0 mg buPROPion XL 24 hr tablet 300 mg (Wellbutrin XL) 300 mg, oral, Every morning, First dose on Tue01/17/24 at 0900, Swallow whole. Do NOT crush, chew, or split tablet. Given 01/19/2024 8:15 AM HUMAN CAPITAL MANAGER 300 mg Given 01/18/2024 9:31 AM HUMAN CAPITAL MANAGER 300 mg Given 01/17/2024 9:14 AM HUMAN CAPITAL MANAGER 300 mg calcium citrate-vitamin D3 315 mg-5 mcg (200 Unit) per tablet 2 tablet (Citracal + D3) 2 tablet, oral, Daily with morning meal, First dose on Tue01/17/24 at 0800, Vitamin D: Units x 0.025 = mcg (e.g. 200 Units = 5 mcg; 250 Units = 6.25 mcg; 5,000 Units = 125 mcg) Given 01/19/2024 8:14 AM HUMAN CAPITAL MANAGER 2 tablets Given 01/17/2024 9:14 AM HUMAN CAPITAL MANAGER 2 tablets cefTRIAXone in dextrose (iso osm) IVPB 2 g (Rocephin) 2 g, intravenous, at 200 mL/hr, Administer over 15 Minutes, Every 24 hours, First dose (after last modification) on Tue01/18/24 at 1215, For 41 doses, Drug Monitoring Program: Pharmacist to adjust medication dosing based on indication and drug clearance factors., Indications: Bone and/or joint infectionIndications:Bone and/or joint infection New Bag 01/19/2024 12:06 PM HUMAN CAPITAL MANAGER 2 g 200 mL/hr New Bag 01/18/2024 1:12 PM HUMAN CAPITAL MANAGER 2 g 200 mL/hr cetirizine tablet 20 mg (ZyrTEC) 20 mg, oral, 2 times daily, First dose (after last modification) on Tue01/17/24 at 0900, Drug Monitoring Program: Pharmacist to adjust medication dosing based on indication and drug clearance factors. Given 01/19/2024 8:13 AM H[employer] MA[employer] 20 mg Given 01/18/2024 8:45 PM [employer] 20 mg Given 01/18/2024 9:31 AM H[employer] MA[employer]GER 20 mg D5W infusion 1-999 mL/hr, intravenous, As needed, Medications Incompatible with 0.9% NaCL, Starting on Tue01/18/24 at 2215, Infuse at the same rate as the piggyback until tubing clears or up to a volume of 20 mL pre and post infusion for medications incompatible with 0.9% NaCL. Use 50 mL bag then discard. ibuprofen tablet 400 mg 400 mg, oral, Every 6 hours, First dose (after last modification) on Tue01/18/24 at 0715, Take with food or milk if GI disturbances occur with use. Given 01/19/2024 12:27 PM HUMAN CAPITAL MANAGER 400 mg Given 01/19/2024 6:23 AM HUMAN CAPITAL MANAGER 400 mg Given 01/19/2024 12:15 AM HUMAN CAPITAL MANAGER 400 mg levothyroxine tablet 100 mcg 100 mcg, oral, Daily, First dose on Tue01/17/24 at 0900 Given 01/19/2024 8:14 AM HUMAN CAPITAL MANAGER 100 mcg Given 01/18/2024 9:31 AM HUMAN CAPITAL MANAGER 100 mcg Given 01/17/2024 9:14 AM HUMAN CAPITAL MANAGER 100 mcg magnesium hydroxide suspension 30 mL (Milk of Magnesia) 30 mL, oral, Daily PRN, constipation, Starting on Tue01/17/24 at 1613 Given 01/18/2024 10:36 AM HUMAN CAPITAL MANAGER 30 mL Given 01/17/2024 6:36 PM HUMAN CAPITAL MANAGER 30 mL nbcjrwirytqv-qhfu-HR-Ca-minerals 400 mcg (folic acid) tablet 1 tablet 1 tablet, oral, Daily, First dose on Tue01/17/24 at 0900 Given 01/19/2024 8:14 AM HUMAN CAPITAL MANAGER 1 tablet Given 01/17/2024 9:14 AM HUMAN CAPITAL MANAGER 1 tablet NaCl 0.9% infusion 1-999 mL/hr, [...] Tue01/18/24 at 1309 Given 01/19/2024 12:26 PM HUMAN CAPITAL MANAGER 10 mg Given 01/19/2024 9:22 AM HUMAN CAPITAL MANAGER 10 mg Given 01/19/2024 5:54 AM HUMAN CAPITAL MANAGER 10 mg oxyCODONE IR tablet 5 mg [...] starch-based thickened liquids. Given 01/18/2024 9:31 AM HUMAN CAPITAL MANAGER 1 packe t Given 01/17/2024 9:14 PM HUMAN CAPITAL MANAGER 1 packet povidone iodine 0.25% in NaCl 0.9% irrigation solution irrigation, Once in surgery, OR use only, Starting on Tue01/16/24 at 1006, For 1 dose, Intra-Op, IRRIGATION USE ONLY Given 01/16/2024 11:50 AM HUMAN CAPITAL MANAGER 1,000 mL Left Knee rifAMPin capsule 300 mg (Rifadin) 300 mg, oral, 2 times daily, First dose on Tue01/18/24 at 0900, Drug Monitoring Program: Pharmacist to adjust medication dosing based on indication and drug clearance factors., Indications: Bone and/or joint infectionIndications:Bone and/or joint infection Given 01/19/2024 8:14 AM HUMAN CAPITAL MANAGER 300 mg Given 01/18/2024 8:45 PM HUMAN CAPITAL MANAGER 300 mg Given 01/18/2024 9:31 AM HUMAN CAPITAL MANAGER 300 mg ROPivacaine (PF) 150 mg, EPINEPHrine 100 mcg, ketorolac 15 mg in NaCl 0.9% 60 mL injection (Arthroplasty Block 75-99.9 kg) 60 mL, infiltration, Once in surgery, OR use only, Starting on Tue01/16/24 at 1006, For 1 dose, Intra-Op, *Not for IV use* Given 01/16/2024 12:11 PM HUMAN CAPITAL MANAGER 60 mL Left Knee ROPivacaine (PF) 150 mg, EPINEPHrine 100 mcg, ketorolac 15 mg in NaCl 0.9% 60 mL injection (Arthroplasty Block 75-99.9 kg) 60 mL, infiltration, Once in surgery, OR use only, Starting on Tue01/16/24 at 1006, For 1 dose, Intra-Op, *Not for IV use* Given 01/16/2024 12:11 PM HUMAN CAPITAL MANAGER 60 mL Left Knee sennosides-docusate sodium 8.6-50 mg per tablet 1 tablet (Senokot-S) 1 tablet, oral, 2 times daily, First dose on Tue01/16/24 at 2100, Do not give if patient has diarrhea. Given 01/18/2024 9:31 AM HUMAN CAPITAL MANAGER 1 tablet Given 01/17/2024 9:16 PM HUMAN CAPITAL MANAGER 1 tablet Given 01/17/2024 9:14 AM HUMAN CAPITAL MANAGER 1 tablet sodium chloride 0.9 % injection [...] consecutive infusions: sodium chloride 0.9 % injection documented in this encounter Active and Recently Administered Medications Times are shown in HUMAN CAPITAL MANAGER. Scheduled Medication Order 01/17/2024 01/18/2024 01/19/2024 acetaminophen tablet 1,000 mg (TylenoL) 1,000 mg, oral, Every 6 hours, First dose (after last modification) on Tue01/17/24 at 0815 0914 (Given - Provider: Deneen Aguilar RBar)1510 (Given - Provider: Deneen Aguilar R.N.)2115 (Given - Provider: Hilaria Beard R.N.) 0129 (Given - Provider: Hilaria Beard RPrakashN.)0931 (Given - Provider: Farhana Langford.Demian.)1312 (Given - Provider: Deneen Aguilar R.N.)1947 (Given - Provider: Olive Davis RPrakashNPrakash) 0241 (Given - Provider: Aurora CaicedoNPrakash)0814 (Given - Provider: Megan Hurley RPrakashNPrakash) aspirin DR tablet 81 mg 81 mg, oral, 2 times daily, First dose (after last modification) on Tue01/17/24 at 0900, Swallow whole. Do NOT crush, chew, or split tablet. 913 (Given - Provider: Deneen Aguilar R.N.)2114 (Given - Provider: Hilaria Beard R.N.) 930 (Given - Provider: Deneen Aguilar R.N.)2044 (Given - Provider: Olive Davis R.N.) 813 (Given - Provider: Megan Hulrey R.N.) atorvastatin tablet 20 mg (Lipitor) 20 [...] Do NOT crush, chew, or split tablet. 913 (Given - Provider: Deneen Aguilar R.N.) 930 (Given - Provider: Deneen Aguilar R.N.) 15 (Given - Provider: Megan Hurley R.N.) calcium citrate-vitamin D3 315 mg-5 mcg (200 Unit) per tablet 2 tablet (Citracal + D3) 2 tablet, oral, Daily with morning meal, First dose on Tue01/17/24 at 0800, Vitamin D: Units x 0.025 = mcg (e.g. 200 Units = 5 mcg; 250 Units = 6.25 mcg; 5,000 Units = 125 mcg) 913 (Given - Provider: Deneen Aguilar R.N.) 930 (Not Given - Provider: Deneen Aguilar R.N. [...] Aguilar R.N.)1836 (Given - Provider: Cleopatra Arrieta RPrakashNPrakash) 0430 (Given - Provider: Hilaria Beard R.N.)1147 [...] 1312 (New Bag - Provider: Deneen Aguilar RMireya.) 1206 (New Bag - Provider: Megan Hurley RPrakashNPrakash) cetirizine tablet 20 mg (ZyrTEC) 20 mg, oral, 2 times daily, First dose (after last modification) on Tue01/17/24 at 0900, Drug Monitoring Program: Pharmacist to adjust medication dosing based on indication and drug clearance factors. 0944 (Given - Provider: William Mike RPrakashNPrakash)2114 (Given - Provider: Hilaria Beard R.N.) 09 (Given - Provider: Deneen Aguilar RBar)204 (Given - Provider: Olive Davis R.N.) 0813 [...] at 0900 0914 (Given - Provider: Deneen Aguilar R.N.) [...] or discomfort at injection site. 1215 (Due) nukweosdzbeh-yjzm-JV-Ca-m inerals 400 mcg (folic acid) tablet 1 tablet 1 tablet, oral, Daily, First dose on Tue01/17/24 at 0900 0914 (Given - Provider: Deneen Aguilar R.N.) 0931 (Not Given - Provider: Deneen Aguilar R.N. - Reason: See Provider Order) 0814 (Given - Provider: Megan Hurley R.N.) polyethylene [...] Olive Davis R.N. - Reason: Patient/family refused) 816 (Not Given - Provider: Megan Hurley R.N. - Reason: Patient/family refused) rifAMPin capsule 300 mg (Rifadin) 300 mg, oral, 2 times daily, First dose on Tue01/18/24 at 0900, Drug Monitoring Program: Pharmacist to adjust medication dosing based on indication and drug clearance factors., Indications: Bone and/or joint infection 930 (Given - Provider: Deneen Aguilar R.N.)2044 (Given - Provider: Olive Davis RBar) 813 (Given - Provider: Megan Hurley R.N.) sennosides-docusate sodium 8.6-50 mg per tablet 1 tablet (Senokot-S) 1 tablet, oral, 2 times daily, First dose on Tue01/16/24 at 2100, Do not give if patient has diarrhea. 14 (Given - Provider: Deneen Aguilar R.N.)2115 (Given - Provider: Hilaria Beard R.N.) 930 (Given - Provider: Deneen Aguilar R.N.)2045 (Not Given - Provider: Olive Davis R.N. - Reason: Patient/family refused) 817 (Not Given - Provider: Megan Hurley R.N. [...] 2119 (Given - Provider: Hilaria Beard R.N.) 1029 (Not Given - Provider: Deneen Aguilar R.N. [...] 01/18/2024 01/19/2024 fentaNYL citrate (PF) 50 mcg/mL GLASS ETCHER bag solution (Sublimaze) (CANCELED) GLASS ETCHER Dose: 20 mcg, GLASS ETCHER Lockout: 10 Minutes, Continuous Rate: 0 mcg/hr, Four Hour Limit: 400 mcg, intravenous, Continuous, Starting on Tue01/17/24 at 1045, Prescriber to manage. Administer with a compatible IV carrier fluid. 1108 (New Bag - Provider: Deneen Aguilar R.N. - Comment: Set up with [...] achieved. 1036 (Given - Provider: Deneen Aguilar R.N.) calcium carbonate chewable tablet 400 mg of [...] use. 0914 (Given - Provider: Deneen Aguilar RPrakashNPrakash) magnesium hydroxide suspension 30 mL (Milk of Magnesia) 30 mL, oral, Daily PRN, constipation, Starting on Tue01/17/24 at 1613 1836 (Given - Provider: Cleopatra Arrieta R.N.) 1036 (Given - Provider: Deneen Aguilar RPrakashN.) NaCl 0.9% infusion 1-999 mL/hr, intravenous, As [...] Hilaria Beard R.N.) 0129 (Given - Provider: Hilaria Beard R.N.)0558 (Given - Provider: Hilaria Beard R.N.)1036 (Given - Provider: Deneen Aguilar R.N.) oxyCODONE IR tablet 10 mg (Roxicodone)(Linked Group 2) 10 mg, oral, Every 3 hours PRN, severe pain or score 7-10 of 10, Starting on Tue01/18/24 at 1309 1416 (Given - Provider: Deneen Aguilar R.N.)1728 (Given - Provider: Tasneem Candelario R.N.)204 (Given - Provider: Olive Davis R.N.) 0011 (Given - Provider: Nataliia Ogden R.N.)0554 (Given - Provider: Nataliia Ogden R.N.)0922 (Given - Provider: Bisi Nair R.N.)1226 (Given - Provider: Aurora OchoaNPrakash) oxyCODONE IR tablet 5 mg (Roxicodone)(Linked Group 2) 5 mg, oral, Every 3 hours PRN, moderate pain or score 4-6 of 10, Starting on Tue01/18/24 at 1309 1416 (See Alternative - Provider: Deneen Aguilar R.N.)1728 (See Alternative - Provider: Tasneem Candelario R.N.)2045 (See Alternative - Provider: Olive Davis R.N.) 0011 (See Alternative - Provider: Natlaiia Ogden R.N.)0554 (See Alternative - Provider: Nataliia Ogden R.N.)8053 (See Alternative - Provider: Bisi Nair R.N.)2336 (See Alternative - Provider: Megan Hurley R.N.) [...] or score 7-10 of 10, Starting on 01/16/24 at 2126 Group 2: oxyCODONE IR tablet [...] Time PHQ-9 Depression Total Score: 7 12/05/19 11:33 PM CDT documented as of this encounter Care Teams Supervisor Tree Trimming Relationship Specialty Start Date End Date Treasure Baires M.D. [address] [phone] PCP - General Family Medicine 09/08/23 documented as of this encounter
--- OUTSIDE RECORDS SUMMARY | 2024-02-09 07:09 | XMS_ITS | Encounter Summary ---
Author Organization [facility] Address [address] [place] [address] Care Team Providers Care Choke Reamer Name Role Phone Treasure Baires M.D. Primary Care Provider [phone] Encounter Details Date Type Department Care Team (Latest Contact Info) Description 07/03/2023 Intake [facility] Social History Tobacco Use Types Packs/Day Years Used Date Smoking Tobacco: Former Cigarettes 2002 Smokeless Tobacco: Never Alcohol Use Standard Drinks/Week Comments Yes 2 (1 standard drink = 0.6 oz pur e alcohol) [facility] Utilities Answer Date Recorded In the past 12 months has [facility] [employer], gas, oil, or water [employer] threatened to shut off services in your [...] How often do you attend [facility] or mormonism services? 1 to 4 times per year 09/13/2021 Do you belong to any clubs o r organizations such as quaker groups, unions, fraternal or athletic groups, or [...] Answer Date Recorded PHQ-2 Score 3 12/05/2023 [employer] of Occupat ional Health - Occupational Stress [...] your living situation today? I have a [facility] place to live 11/22/2023 Education Answer Date Recorded What is the highest level of school you have completed or the highest degree you have received? Doctorate 09/05/2018 Comments No Sex and Gender Information Value Date Recorded Sex Assigned at Female 12/19/2016 7:29 PM SECURITY SYSTEMS ADMINISTRATOR Legal Sex Female 7:58 AM SECURITY SYSTEMS ADMINISTRATOR Gender Identity Female 12/19/2016 7:29 PM SECURITY SYSTEMS ADMINISTRATOR Sexual Orientation Lesbian or Turcios 03/12/2020 12 :23 PM SECURITY SYSTEMS ADMINISTRATOR documented as of this encounter Last Filed Vital Signs Vital Sign Reading Time Taken Comments Blood Pressure 154/80 07/03/2023 7:14 PM CDT Pulse - - Temperature 36.5 C (97.7 F) 07/03/2023 7:14 PM CDT Respiratory Rate 18 07/03/2023 7:14 PM CDT Oxygen Saturation 98% 07/03/2023 7:14 PM CDT on room air Inhaled Oxygen Concentration - - Weight - - Height - - Body Mass Index - - documented in this encounter Plan of Treatment Upcoming Encounters Date Type Department Care Team (Late st Contact Info) Description 03/01/2024 10:00 AM SECURITY SYSTEMS ADMINISTRATOR Comprehensive Visit Section of Infectious Diseases in [address] [phone] Silvana Marrufo M.D. [address] [place] [phone] 03/01/2024 10:40 AM SECURITY SYSTEMS ADMINISTRATOR Lab Department of Laboratory Medicine and Pathology, [facility], in [address] [phone] Jolynn Cole P.A.-C., M.S. [address] [place] [phone] 03/01/2024 11:15 AM SECURITY SYSTEMS ADMINISTRATOR Appointment Department of Radiology, [facility] in [address] [phone] Jolynn Cole P.A.-C., M.S. [address] [place] [phone] 03/01/2024 12:00 PM SECURITY SYSTEMS ADMINISTRATOR Office Visit Department of Orthopedic Surgery in [place] [id number] [place] [phone] Jolynn Cole P.A.-C., M.S. [address] [place] [phone] 03/13/2024 3:20 PM SECURITY SYSTEMS ADMINISTRATOR Comprehensive Visit Department of Family Medicine, [facility], in [place], [place] [address] [place] [phone] Treasure Baires M.D. [address] [place] [phone] 03/14/2024 1:30 PM SECURITY SYSTEMS ADMINISTRATOR Virtual Visit Section of Infectious Diseases in [place], [place] [address] [place] [phone] Silvana Marrufo M.D. [address] [place] [phone] documented as of this encounter Visit Diagnoses Not on filedocumented in this encounter Additional Health Concerns Assessment Noted Time PHQ-9 Depression Total Score: 9 06/16/19 24 7:14 AM CDT documented as of this encounter Care Teams Choke Reamer Relationship Specialty Start Date End Date Treasure Baires M.D. [address] [place] [phone] PCP - General Family Medicine 09/08/23 documented as of this encounter
--- OUTSIDE RECORDS SUMMARY | 2024-02-09 07:09 | XMS_ITS | Encounter Summary ---
Author Organization [facility] Address [address] [place] [address] Care Team Providers Care Manager Epic Name Role Phone Treasure Baires M.D. Primary Care Provider [phone] Encounter Details Date Type Department Care Team (Late st Contact Info) Description 01/16/2024 Ancillary Procedure Department of Orthopedic Surgery Social History Tobacco Use Types Packs/Day Years Used Date Smoking Tobacco: Former Cigarettes 2002 Smokeless Tobacco: Never Alcohol Use Standard Drinks/Week Comments Yes 2 (1 standard drink = 0.6 oz pur e alcohol) [facility] Utilities Answer Date Recorded In the past 12 months has [facility] [employer], gas, oil, or water [employer] threatened to shut off services in your [...] Answer Date Recorded PHQ-2 Score 3 12/05/2023 [facility] of Occupat ional Health - [...] your living situation today? I have a [facility] place to live 01/17/2024 Education Answer Date Recorded What is the highest level of school you have completed or the highest degree you have received? Doctorate 09/05/2018 Comments No Sex and Gender Information Value Date Recorded Sex Assigned at Female 12/19/2016 7:29 PM COMPUTER SYSTEMS INTEGRATOR Legal Sex Female 7:58 AM COMPUTER SYSTEMS INTEGRATOR Gender Identity Female 12/19/2016 7:29 PM COMPUTER SYSTEMS INTEGRATOR Sexual Orientation Lesbian or Turcios 03/12/2020 12 :23 PM COMPUTER SYSTEMS INTEGRATOR documented as of this encounter Plan of Treatment Upcoming Encounters Date Type Department Care Team (Late st Contact Info) Description 03/01/2024 10:00 AM COMPUTER SYSTEMS INTEGRATOR Comprehensive Visit Section of Infectious Diseases in [address] [phone] Silvana Marrufo M.D. [address] [place] [phone] 03/01/2024 10:40 AM COMPUTER SYSTEMS INTEGRATOR Lab Department of Laboratory Medicine and Pathology, [facility], in [address] [place] [phone] Jolynn Cole P.A.-C., M.S. [address] [place] [phone] 03/01/2024 11:15 AM COMPUTER SYSTEMS INTEGRATOR Appointment Department of Radiology, [facility] in [place], [place] [address] [place] [phone] Jolynn Cole P.A.-C., M.S. [address] [place] [phone] 03/01/2024 12:00 PM COMPUTER SYSTEMS INTEGRATOR Office Visit Department of Orthopedic Surgery in [place] [phone] [place] [phone] Jolynn Cole P.A.-C., M.S. [address] [place] [phone] 03/13/2024 3:20 PM COMPUTER SYSTEMS INTEGRATOR Comprehensive Visit Department of Family Medicine, [facility], in [place], [place] [address] [phone] Treasure Baires M.D. [address] [place] [phone] 03/14/2024 1:30 PM COMPUTER SYSTEMS INTEGRATOR Virtual Visit Section of Infectious Diseases in [place], [place] [address] [place] [phone] Silvana Marrufo M.D. [address] [place] [phone] documented as of this encounter Procedures Procedure Name Priority Date/Time Associated Diagnosis Comments ORTHOPEDIC SURGERY IMAGE EXAM Routine 01/16/2024 12:00 AM COMPUTER SYSTEMS INTEGRATOR documented in this encounter Results * Leg-Orthopedic Surgery Image Exam (01/16/2024 12:00 AM COMPUTER SYSTEMS INTEGRATOR) Narrative IIMS - 01/16/2024 4:46 PM COMPUTER SYSTEMS INTEGRATOR This order has been created and auto-finalized to support the import of images acquired without order. The clinical documentation to support these images can be found on the encounter that produced images. us Provider Not In System IMG NON RAD IMAGING PROCE DURES Final Result IIMS NA documented in this encounter Visit Diagnoses Not on filedocumented in this encounter Additional Health Concerns Assessment Noted Time PHQ-9 Depression Total Score: 7 12/05/19 24 11:33 PM CDT documented as of this encounter Care Teams Manager Epic Relationship Specialty Start Date End Date Treasure Baires M.D. [address] [phone] PCP - General Family Medicine 09/08/23 documented as of this encounter
[2024-02-09 16:01] LABS: Basophils Percent Auto 1.7 % (0.0-3.0); Eosinophils Percent Auto 7.8 % (0.0-7.0); Hematocrit 35.8 % (33.0-51.0); Immature Granulocytes Pct Auto 0.2 %; Lymphocytes Percent Auto 23.6 % (20-44); Mean Corpuscular HGB Conc 31 gm/dL (32-36); Mean Corpuscular Hemoglobin 28 pg (26-34); Mean Corpuscular Volume 91 fL (80-100); Neutrophils Percent Auto 58.7 % (42.0-72.0); Platelet Count* 237 K/uL (140-440); RDW Coefficient of Variation % 15.9 % (11.5-15.5); Red Blood Count 3.92 m/uL (4.00-5.20); White Blood Count* 4.23 K/uL (4.50-11.00)
[2024-02-09 16:02] LABS: Slide Review Reflex No
[2024-02-09 16:42] LABS: Alkaline Phosphatase* 109 U/L (40-150); Creatinine* 0.6 mg/dL (0.5-1.5); Estimated Glomerular Filt Rate 95 ml/min
[2024-02-09 16:43] LABS: Alanine Aminotransferase* 13 U/L (4-35)
[2024-02-23 14:51] LABS: Basophils Percent Auto 1.6 % (0.0-3.0); Eosinophils Percent Auto 7.5 % (0.0-7.0); Hematocrit 37.9 % (33.0-51.0); Hemoglobin* 11.8 gm/dL (12.0-16.0); Immature Granulocytes Pct Auto 0.3 %; Lymphocytes Percent Auto 16.6 % (20-44); Mean Corpuscular HGB Conc 31 gm/dL (32-36); Mean Corpuscular Hemoglobin 28 pg (26-34); Mean Corpuscular Volume 90 fL (80-100); Monocytes Percent Auto 11.7 % (0.0-11.0); Neutrophils Percent Auto 62.3 % (42.0-72.0); Platelet Count* 163 K/uL (140-440); RDW Coefficient of Variation % 14.9 % (11.5-15.5); Red Blood Count 4.21 m/uL (4.00-5.20); White Blood Count* 3.86 K/uL (4.50-11.00)
[2024-02-23 14:52] LABS: Slide Review Reflex No
[2024-02-24 01:56] LABS: Alkaline Phosphatase* 101 U/L (40-150); Creatinine* 0.7 mg/dL (0.5-1.5); Estimated Glomerular Filt Rate 91 ml/min
[2024-02-24 01:57] LABS: Alanine Aminotransferase* 19 U/L (4-35)
== END 2024-07-24 23:59 | disposition home or self-care (01) ==
LOC: CCIC 14:00
PROVIDERS: Physician Assistant; PCP Family Medicine; Visit Provider Clinical Nurse Specialist
DX: T84.54XA Infection and inflammatory reaction due to internal left knee prosthesis, initial encounter (principal); Z79.2 Long term (current) use of antibiotics; Z47.1 Aftercare following joint replacement surgery; Z96.659 Presence of unspecified artificial knee joint
CPT/HCPCS: 36415; 36592; 82565; 84075; 84460; 85025; A4221

== ENCOUNTER 2024-09-05 14:30 | Outpatient (RCR) | payer BC, OTHER, SELFPAY | END 2024-09-06 14:26 | disposition home or self-care (01) | PROVIDERS: PCP Family Medicine; Visit Provider Orthopaedic Surgery | DX: Z47.1 Aftercare following joint replacement surgery (principal); Z96.652 Presence of left artificial knee joint; S82.142D Displaced bicondylar fracture of left tibia, subsequent encounter for closed fracture with routine healing; Z51.89 Encounter for other specified aftercare | CPT/HCPCS: 97032; 97110; 97112; 97140; 97162; 97164 ==